=== PATIENT | male | born 1950 | race Caucasian/White ===

== ENCOUNTER → 2018-07-03 14:34 | Outpatient (CLI) | payer MEDICARE, OTHER, SELFPAY ==
--- NOTE | 2018-07-03 14:39 | RAD_ITS ---
STUDY: X-RAY - PELVIS REASON FOR EXAM: Male, 68 years old. NO KNOWN INJURY. PAIN IN HIPS. HX OF INFLAMMATORY POLYARTHROPATHY TECHNIQUE: One view of the pelvis was obtained. COMPARISON: None. FINDINGS: There is a non-specific bowel gas pattern. Normal visualized soft tissue structures. There is narrowing with cortical sclerosis and osteophyte formation of the sacroiliac joint consistent with degenerative osteoarthritic changes. Normal visualized bilateral superior and inferior pubic rami. Normal pubic symphysis. Normal ischial tuberosities. Normal visualized right femoral head. Normal right acetabulum. Normal right hip joint. There are osteoarthritic changes of the left femoral head with marginal osteophyte formation. There is moderate to severe articular joint space narrowing of the left hip. RAD/Pelvis 1 or 2 Views IMPRESSION: Left hip osteoarthritis. Electronically Signed: Yuridia Dey MD at 12:37 EDT , Service support ,
[2018-07-03 15:41] LABS: Absolute Lymphocyte Count 1.86 X10^3/ul (0.83-4.51); Absolute Neutrophil Count 5.8 X10^3/uL (2.0-7.7); Basophil# 0.02 X10^3/uL; Basophil% 0.2 % (0-1); Eosinophil# 0.09 X10^3/uL; Eosinophils% 1.1 % (0-5); Hemoglobin 16.5 g/dl (13.0-16.5); Lymphocyte # 1.86 X10^3/ul (4.0); Lymphocyte % 22.1 % (19-41); Mean Corp Hgb Conc 34.4 g/gl (32-36); Mean Platelet Vol. 10.1 fl (6.2-12.0); Monocyte% 7.1 % (0-10); Neutrophil # 5.82 X10^3/uL (2.7-7.7); Neutrophil % 69.3 % (47-70); Platelet Count 209 K/mm3 (150-450); RBC Distribution Width CV 12.3 % (11.6-14.6); RBC Distribution Width SD 42.9 fl (35.1-43.9); White Blood Count 8.4 K/mm3 (4.4-11.0)
[2018-07-03 15:44] LABS: POSITIVE COUNT NO; POSITIVE DIFFERENTIAL NO; POSITIVE MORPHOLOGY NO
[2018-07-03 15:48] LABS: Color, Urine Yellow (Yellow); Glucose, Dipstick Normal (Normal); Ketone-Dipstick Negative (Negative); Leukocyte Esterase-Dipstick 25 /ul (Negative); Nitrite-Dipstick Negative (Negative); Occult Blood-Urine 10 /ul (Negative); Protein-Dipstick Negative (Negative); Specific Gravity, Urine 1.015 (1.002-1.030); Urine Bilirubin Dipstick Negative (Negative); Urine Clarity Clear (Clear); Urine Urobilinogen 4 mg/dl (Normal)
[2018-07-03 16:15] LABS: AST(SGOT) 13 U/L (15-37); Alanine Aminotransfer ALT/SGPT 21 U/L (16-61); Alkaline Phosphatase 70 U/L (45-117); Anion Gap 5 (5-15); BUN 14 mg/dL (7-18); BUN/Creat Ratio 16.6 RATIO (10-20); Calcium,Total 8.9 mg/dL (8.5-10.1); Chloride 106 mmol/L (98-107); Creatinine, Serum 0.84 mg/dL (0.70-1.30); EST Glomerular Filtration Rate 96 mL/min (>60); Est Glom Filt Rate - Afr Amer 116 mL/min (>60); Glucose 72 mg/dL (74-106); Potassium 3.5 mmol/L (3.5-5.1); Sodium Level 140 mmol/L (136-145)
[2018-07-03 16:18] LABS: Protein:Creat Ratio 102 mg/g CRE (0-200)
[2018-07-05 14:54] LABS: Anti-Centromere B Ab <0.2 AI (0.0-0.9); Anti-Jo <0.2 AI (0.0-0.9); Anti-Scleroderma-70 AB <0.2 AI (0.0-0.9)
[2018-07-05 15:47] LABS: ANTINUCLEAR ANTIBODIES DIRECT Positive (Negative); Anti-dsDNA Ab 17 IU/mL (0-9)
[2018-07-10 14:08] LABS: Complement C3 140 mg/dL (82-167)
[2018-07-10 15:23] LABS: CCP IgG Antibodies 5 units (0-19); HEPATITIS B SURFACE AG Negative (Negative); HLA B27 Negative (.); Hep B Surface Antibodies Non Reactive (.); Hep C Antibodies <0.1 s/co ratio (0.0-0.9)
== END ==
PROVIDERS: Family Provider Nurse Practitioner; PCP Nurse Practitioner; Visit Provider Internal Medicine Rheumatology
DX: M06.4 Inflammatory polyarthropathy (principal); R76.8 Other specified abnormal immunological findings in serum; I10 Essential (primary) hypertension; G25.81 Restless legs syndrome; K21.9 Gastro-esophageal reflux disease without esophagitis; F41.9 Anxiety disorder, unspecified
CPT/HCPCS: 36415; 72170; 80053; 81002; 81374; 82570; 84156; 85025; 86038; 86160; 86200; 86225; 86235; 86706; 86803; 87340

== ENCOUNTER → 2018-07-05 12:34 | Outpatient (CLI) | payer MEDICARE, OTHER, SELFPAY ==
--- NOTE | 2018-07-05 12:36 | CT_ITS ---
STUDY: CT CHEST WITHOUT CONTRAST- LOW DOSE SCREENING PROTOCOL REASON FOR EXAM: Male, 68 years old. Current smoker. 40 pack per year history. No current symptoms of lung cancer or pulmonary infection. Shared decision-making with referring PCP documented in patient's record. RADIATION DOSAGE (If Supplied By Facility): CTDIvol = ( 3.02 ) mGy, DLP = ( 112.87 ) mGycm TECHNIQUE: Low dose screening CT examination performed from the base of the neck to the upper abdomen. Sagittal and coronal reformatted images performed. Sagittal and coronal MIP images provided. The measurements provided are average, rounded measurements per ACR guidelines. Individualized dose optimization techniques were used for this CT. COMPARISON: None. FINDINGS: Mild paraseptal emphysematous changes of the bilateral lung apices. There are fibrotic bands in the right middle lobe and bilateral lower lobes. No noncalcified pulmonary nodules are localized groundglass opacity. No endobronchial lesions are seen. There is no demonstrated pleural abnormality. Normal heart and pericardium. There are calcifications of the coronary arteries. Normal mediastinum. Normal hilar regions. Normal unenhanced pulmonary arteries. There is atherosclerotic tortuosity of the aortic arch and descending thoracic aorta. Normal osseous structures. There is no demonstrated abnormality of the visualized upper abdomen. CT/Low Dose CT Lung Screening IMPRESSION: 1. No significant indeterminate incidental findings requiring additional imaging. 2. Incidental findings include mild paraseptal emphysema of the lung apices, atherosclerosis including coronary arteries, mild parenchymal fibrotic bands. ASSESSMENT CATEGORY: LungRADS 1 - Negative. Continue annual screening with LDCT in 12 months, per established ACR guidelines. Electronically Signed: Omar Montes De Oca MD at 18:16 EDT , Service support ,
== END ==
PROVIDERS: Family Provider Nurse Practitioner; PCP Nurse Practitioner; Visit Provider Internal Medicine Pulmonary Disease
DX: Z87.891 Personal history of nicotine dependence (principal)
CPT/HCPCS: G0297

== ENCOUNTER → 2018-08-22 12:11 | Outpatient (CLI) | payer MEDICARE, OTHER, SELFPAY ==
--- NOTE | 2018-08-22 12:19 | CT_ITS ---
STUDY: CT ABDOMEN AND PELVIS WITH AND WITHOUT CONTRAST REASON FOR EXAM: Male, 68 years old. Microhematuria. RADIATION DOSAGE (If Supplied By Facility): CTDIvol = ( 19.86 ) mGy, DLP = ( 1632.30 ) mGycm TECHNIQUE: Transaxial images were obtained from the dome of the diaphragm to the symphysis pubis without oral contrast. 100 ml of Isovue 300 contrast was administered. Sagittal and coronal images were reconstructed. Individualized dose optimization techniques were used for this CT. COMPARISON: Report of bladder ultrasound May 23, 2012. FINDINGS: The visualized lung bases are unremarkable. The visualized portions of the heart are within normal limits. Small hiatal hernia. Normal liver. Normal gallbladder and extrahepatic biliary system. Normal spleen. Normal pancreas. Normal bilateral adrenal glands. 2.1 cm simple inferior pole right renal cyst. Subcentimeter right renal cortical cyst. 1 mm nonobstructing inferior pole left renal calculus. Fundus and body of the stomach are collapsed limiting evaluation of wall thickening. Fluid-filled nondilated loops of small bowel left midabdomen. Mild colonic diverticulosis. Wall thickening involving a 9 cm segment of mid sigmoid colon versus lack of distention axial image 84 series 3. The appendix is visualized and appears normal. There is mild atherosclerotic calcification of the abdominal aorta, without a demonstrated aneurysm. Normal inferior vena cava. Normal retroperitoneum. No intra-abdominal free air. Normal urinary bladder. Prostate gland not enlarged. Normal abdominal wall. All degenerative changes of the lower lumbar spine. CT/CT Abd/Pelvis W/WO Contrast IMPRESSION: No hydronephrosis or ureteral stones. Small nonobstructive left renal calculus. Right renal cysts. Mild colonic diverticulosis. Wall thickening involving the mid sigmoid colon which may represent diverticular disease. Focal colitis secondary to infection or inflammatory bowel disease, or lack of distention are possibilities. Small hiatal hernia. Electronically Signed: Syed Kraft MD at 0:31 EDT , Service support ,
[2018-08-22 12:36] LABS: CREATININE FINGERSTICK 0.8 mg/dL (0.70-1.30)
== END ==
PROVIDERS: Family Provider Nurse Practitioner; PCP Nurse Practitioner; Referring Provider Nurse Practitioner Adult Health; Visit Provider Nurse Practitioner Adult Health
DX: R31.29 Other microscopic hematuria (principal)
CPT/HCPCS: 74178; Q9967

== ENCOUNTER → 2018-10-24 13:28 | Outpatient (CLI) | payer MEDICARE, OTHER, SELFPAY ==
[2018-10-24 14:10] LABS: Absolute Lymphocyte Count 0.73 X10^3/ul (0.83-4.51); Absolute Neutrophil Count 6.7 X10^3/uL (2.0-7.7); Basophil# 0.02 X10^3/uL; Basophil% 0.3 % (0-1); Eosinophil# 0.03 X10^3/uL; Eosinophils% 0.4 % (0-5); Hemoglobin 17.1 g/dl (13.0-16.5); Lymphocyte # 0.73 X10^3/ul (4.0); Lymphocyte % 9.5 % (19-41); Mean Corp Hgb Conc 34.9 g/gl (32-36); Mean Corpuscular Hgb 32.4 pg (27.0-32.0); Mean Platelet Vol. 10.3 fl (6.2-12.0); Monocyte# 0.16 X10^3/uL; Monocyte% 2.1 % (0-10); Neutrophil % 87.3 % (47-70); Platelet Count 213 K/mm3 (150-450); RBC Distribution Width CV 12.8 % (11.6-14.6); Red Blood Count 5.27 M/mm3 (4.6-6.2); White Blood Count 7.7 K/mm3 (4.4-11.0)
[2018-10-24 14:11] LABS: POSITIVE COUNT NO; POSITIVE DIFFERENTIAL NO; POSITIVE MORPHOLOGY NO
[2018-10-24 14:34] LABS: AST(SGOT) 16 U/L (15-37); Alanine Aminotransfer ALT/SGPT 25 U/L (16-61); Albumin, Serum 3.8 g/dL (3.2-5.0); Alkaline Phosphatase 74 U/L (45-117); Anion Gap 8 (5-15); BUN 13 mg/dL (7-18); Chloride 106 mmol/L (98-107); Creatinine, Serum 0.86 mg/dL (0.70-1.30); EST Glomerular Filtration Rate 93 mL/min (>60); Est Glom Filt Rate - Afr Amer 113 mL/min (>60); Globulin 3.9 g/dL (2.2-4.2); Glucose 145 mg/dL (74-106); Potassium 4.1 mmol/L (3.5-5.1); Protein, Total 7.7 g/dL (6.4-8.2); Sodium Level 140 mmol/L (136-145)
--- OUTSIDE RECORDS SUMMARY | 2018-12-20 02:26 | XMS RPT_ITS | Continuity of Care Document ---
:1950 Author Organization [facility] Address [address] [place] [address] Phone Care Team Providers Name Role Phone Jailene Mayfield CNP Unavailable Dr. Ger Gaston Unavailable Jennifer Osuna Unavailable Wesley Sousa Unavailable [facility] Unavailable Blaire ALBARADO, Domenic Mancilla Unavailable Jessica Pop Unavailable Patricio Burton Unavailable Sondra Jimenez Unavailable Unavailable July Mazariegos Unavailable Sasha NEWBERRY MD, Maggie Bernal Unavailable Jhony Yusuf Unavailable Hayden Valero Unavailable Zoila Elder Unavailable Unavailable Sue Rooney Unavailable Unavailable Slarb MICROGRINDER OPERATOR, Safia Unavailable Unavailable Long MICROGRINDER OPERATOR, Mehnaz L Unavailable Unavailable SHENA LemusN Sue Unavailable Unavailable Lauryn Hanson Unavailable Unavailable Unavailable Unavailable Problems Name Dates Details Abnormal Holter exam (R94.31, 794.31) Comments: supreventricular ectopy currently on exforge Status: Active Abnormal lung sounds (R09.89, 786.7) Status: Active Abnormal lung sounds (R09.89, 786.7) Status: Active Abnormal thyroid stimulating hormone level (R79.89, 790.6) Comments: ultrasound first and repeat labs Status: Active Acute non-recurrent maxillary sinusitis (J01.00, 461.0) Status: Active Alcohol abuse, 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 stil work with him on and off. 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) Comments: and pos Anti DNA Status: Active Anxiety (F41.9, 300.00) Comments: see discussion on 05-17-18 ov Status: Active B12 deficiency (E53.8, 266.2) Comments: using otc vit b12 also add thiamine Status: Active BMI 26.0-26.9,adult (Z68.26, V85.22) Status: Active BMI 27.0-27.9,adult (Z68.27, V85.23) Status: Active BMI 28.0-28.9,adult (Z68.28, V85.24) Comments: talk about diet clean eating, get calories outof drinks, cut proportions Status: Active Bradycardia (R00.1, 427.89) Status: Active Central obesity (E65, 278.1) Status: Active Cerumen impaction (H61.20, 380.4) Comments: rt Status: Active Current smoker (F17.200, 305.1) Comments: can try nicoderm pacth if not work then chantix talk chantix and how take. 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 needs all immunizations updated, rec. local pharm for tetanus and Ojiilqd59,whisper test=WNL mini mental=30/30 Status: Active Erectile disorder, generalized, mild (F52.21, 302.72) Comments: talk about and ? htn tel side effects of meds. Status: Active Erectile dysfunction (N52.9, 607.84) Status: Active Fatigue (R53.83, 780.79) Comments: daytime fatigue Status: Active Fatigue, unspecified type (R53.83, 780.79) Comments: family h/o dm will ck -- other metabolic etiologies too -- getting sleep eval -- has depresion and was placed onlexapro and has been on those meds in past w/o issue adn it was only one week ago-- admits to stressors Status: Active Gait abnormality (R26.9, 781.2) Comments: because of knee Status: Active GERD (gastroesophageal reflux disease) (K21.9, 530.81) Comments: had EGDyears ago . hospital stay stress negative. having breakthrough reflux on PPI nexium egd 8-15, will go to OTC 20mg nexium and prevacid 3, wean nexium and take acid airfreight operations agent as needed. Status: Active Hearing loss of both ears due to cerumen impaction (H61.23, 389.8) Status: Active Hematuria (R31.9, 599.70) Comments: newly diagnosed lupus, Ua with blood newly diagnosed Lupus saw urologist had cystoscopy normal Status: Active Hip pain, left (M25.552, 719.45) Comments: left hip injection from [place] seeing DR. Walker Sousa but he is leaving, so pt needs another ortho Status: Active Hyperinflation of lungs (R09.89, 786.9) Status: Active Hypertension (I10, 401.9) Comments: On exforge 5-160mg controlled, changing to 5 320mg, now with good BP control, will change to losartan and amlodipine because of recall and ? pt symptoms of fatiguehas neg sleep study, Low dose CT with emphysema Status: Active Impaired fasting glucose (R73.01, 790.21) Status: Active Irritable bowel syndrome (K58.9, 564.1) Comments: robbie Gaston had colonoscopy Nov 2016 Status: Active Left knee pain, unspecified chronicity (M25.562, 719.46) Status: Active Low back pain with radiation (M54.40, 724.3) Comments: shoveling snow, with muscle relaxer Status: Active Low serum testosterone (E29.1, 257.2) Comments: think about replacement and or work out Status: Active Lupus (systemic lupus erythematosus) (M32.9, 710.0) Comments: pt on nexium for years ? contributory, on equate acid airfreight operations agent seeing Dr La Status: Active Muscle spasm of back (M62.830, 724.8) Status: Active Need for prophylactic vaccination and inoculation against influenza (Renamed from Need for immunization against influenza) (Z23, V04.81) Status: Active Need for prophylactic vaccination and inoculation against influenza (Renamed from Need for immunization against influenza) (Z23, V04.81) Status: Active Need for prophylactic vaccination and inoculation against influenza (Renamed from Need for immunization against influenza) (Z23, V04.81) Status: Active Nocturnal leg cramps (G47.62, 327.52) Comments: using micah mag with help Status: Active Nocturnal leg cramps (G47.62, 327.52) Status: Active Pneumococcal vaccination given (Z23, V06.6) Status: Active Pneumonia (J18.9, 486) Comments: resolved on levaquin Status: Active Pulmonary infiltrates on CXR (R91.8, 793.19) Comments: and atelectasis Status: Active PVC (premature ventricular contraction) (I49.3, 427.69) Comments: Has seen cardio, Dr Rudd in outpt with Normal LV, card cath neg in 2013, No new workup or recommendation continue exforge Status: Active RLS (restless legs syndrome) (G25.81, 333.94) Status: Active Sebaceous cyst (L72.3, 706.2) Comments: Rt groin, try antibiotic, if not improving, will gallito Status: Active Smoker (F17.200, 305.1) Status: Active Testosterone deficiency (E34.9, 257.2) Comments: two low T's done 09-21-16 and 0-8-27vzjzwz labs good, recheck psa and then cbc, liver, cmp in March 2017 Status: Active Unspecified Diagnosis Status: Active Unspecified Diagnosis Status: Active Upper respiratory infection (J06.9, 465.9) Status: Active Vitamin D deficiency, unspecified (E55.9, 268.9) Comments: stable on Vit D once weekly Status: Active Weight loss (R63.4, 783.21) Status: Active Wheeze (R06.2, 786.07) Status: Active Medications Name Dates Details Amlodipine-Olmesartan 5-40 MG Oral Tablet 1 (one) Tablet daily for 90 days Quantity: 90 {Tablet} Refills: 3 Ordered:09-Oct-2018 Bhumikamani KAYLIE Jailene Beltranshamika LOTT Jailene Vega Start : 09-Oct-2018 Active Micah Mag Zinc +D3 Oral Tablet 1 (one) Tablet Tablet qhs for 0 days Quantity: 30 {Tablet} Refills: 0 Ordered:20-Sep-2017 Bhumikakasishamika LOTT, Jailene Beltranshamika LOTT Jailene Vega Start : 20-Sep-2017 Active Ergocalciferol 26625 UNIT Oral Capsule 1 (one) Capsule Capsule weekly for 0 days Quantity: 8 {Capsule} Refills: 0 Ordered:16-May-2017 Tran KAYLIE, Jailene Stevens KAYLIE Jailene Vega Start : 16-May-2017 Active Comments:06-14-16 no refills patient needs an appointment LORazepam 1 MG Oral Tablet 1 Tablet qd prn for 30 days Quantity: 30 {Tablet} Refills: 0 Ordered:09-Oct-2018 Tran KAYLIE, Jailene Beltranshamika LOTT Jailene Vega Start : 09-Oct-2018 Active Comments:thirtyOarrs runDx. F41.9 NexIUM 24HR 20 MG Oral Capsule Delayed Release 1 (one) Capsule DR Capsule DR daily for 0 days Quantity: 30 {Capsule} Refills: 0 Ordered:29-Sep-2016 Slarb Safia LANGSTON Start : 21-Sep-2016 Active Sildenafil Citrate 20 MG Oral Tablet 1 (one) Tablet Tablet Take 1 .5-4hr before sexual activity for 0 days Quantity: 10 {Tablet} Refills: 0 Ordered:20-Sep-2017 Mehnaz Desai LPN Start : 20-Sep-2017 Active Comments:Generic Viagra Wellbutrin SR 150 MG Oral Tablet Extended Release 12 Hour 1 (one) Milligram Milligram 1 daily x 3 days then 1 bid for 0 days Quantity: 60 {Milligram} Refills: 3 Ordered:26-Jul-2018 Lauryn Hanson Start : 26-Jul-2018 Active Comments:Separate doses by at least 8hr, and last dose no later than 6pm, stop smoking after 5-7 days x 7-12 weeks ANUSOL-HC, 25MG (Rectal Suppository) 1 (one) Suppository daily prn for 0 days Quantity: 10 {Suppository} Refills: 1 Ordered:08-Jun-2010 SHALINI Velazquez Start : 14-Apr-2009 Inactive Augmentin 875-125 MG Oral Tablet 1 (one) Tablet BID for 14 days Quantity: 28 {Tablet} Refills: 0 Ordered:19-Jul-2016 Tran LOTT Jailene Rodney LOTT, Aurelia Start : 19-Jul-2016 End : 02-Aug-2016 Inactive Augmentin 875-125 MG Oral Tablet 1 (one) Tablet bid for 0 days Quantity: 20 {Tablet} Refills: 0 Ordered:29-Nov-2017 Mehnaz Desai LPN Start : 08-Nov-2017 End : 29-Nov-2017 Inactive Cefadroxil 500 MG Oral Capsule 1 (one) Capsule bid for 7 days Quantity: 14 {Capsule} Refills: 0 Ordered:29-Nov-2017 Tran LOTT Jailene Rodney LOTT, Aurelia Start : 29-Nov-2017 End : 06-Dec-2017 Inactive CLOTRIMAZOLE-BETAMETHASONE, 1-0.05% (External Cream) uad Cream bid to affected area(s) for 0 days Quantity: 1 {Cream} Refills: 3 Ordered:12-Apr-2013 SHALINI Velazquez Start : 02-Nov-2012 End : 12-Apr-2013 Inactive CYANOCOBALAMIN, 1000MCG/ML (Injection Solution) 1 cc Solution bimonthly for 0 days Quantity: 1 {Solution} Refills: 6 Ordered:26-Mar-2014 Mehnaz Desai LPN Start : 30-Nov-2010 End : 26-Mar-2014 Inactive Comments:give 1cc syringe and 1 in IM needles with this script CYANOCOBALAMIN, 2500MCG (Sublingual Tablet Sublingual) 1 Tab Sublingual daily for 0 days Quantity: 90 {Tab_Sublingual} Refills: 3 Ordered:15-Apr-2011 SHALINI Velazquez Start : 23-Mar-2010 End : 15-Apr-2011 Inactive Cyclobenzaprine HCl 5 MG Oral Tablet 1 (one) Tablet Tablet TID PRN for 0 days Quantity: 21 {Tablet} Refills: 0 Ordered:08-May-2018 Safia Iraheta LPN Start : 19-Dec-2017 End : 08-May-2018 Inactive DEXILANT, 60MG (Oral Capsule Delayed Release) [address] qd for 0 days Quantity: 90 {Capsule_DR} Refills: 3 Ordered:26-Mar-2014 Long MICROGRINDER OPERATOR, Mehnaz L Start : 06-Nov-2012 End : 26-Mar-2014 Inactive DEXILANT, 60MG (Oral Capsule Delayed Release) [address] qd for 0 days Quantity: 90 {Capsule_DR} Refills: 3 Ordered:26-Mar-2014 Long MICROGRINDER OPERATOR, Mehnaz L Start : 06-Nov-2012 End : 26-Mar-2014 Inactive DICYCLOMINE HCL, 20MG (Oral Tablet) uad Tablet BID/PRN for 0 days Quantity: 30 {Tablet} Refills: 3 Ordered:26-Mar-2014 Long MICROGRINDER OPERATOR, Mehnaz L Start : 03-Mar-2011 End : 26-Mar-2014 Inactive DIFLUCAN, 150MG (Oral Tablet) 1 Tablet daily for 0 days Quantity: 3 {Tablet} Refills: 0 Ordered:19-Apr-2011 SHALINI Velazquez Start : 15-Apr-2011 End : 19-Apr-2011 Inactive DOXYCYCLINE HYCLATE, 100MG (Oral Tablet) 1 (one) Tablet Tablet bid for 0 days Quantity: 20 {Tablet} Refills: 0 Ordered:16-Dec-2014 SHALINI Velazquez Start : 05-Aug-2014 End : 16-Dec-2014 Inactive Comments:watch sunsensitivity DRISDOL, 14022ZVAN (Oral Capsule) 1 Capsule three times weekly for 0 days Quantity: 12 {Capsule} Refills: 3 Ordered:26-Mar-2014 Long MICROGRINDER OPERATOR, Mehnaz L Start : 15-Feb-2012 End : 26-Mar-2014 Inactive Exforge 5-160 MG Oral Tablet 1 (one) Tablet QD for 0 days Quantity: 90 {Tablet} Refills: 1 Ordered:20-Feb-2018 Tran LOTTJailene CNP, Mary E Start : 29-Nov-2017 End : 20-Feb-2018 Inactive Exforge 5-320 MG Oral Tablet 1 (one) Tablet daily for 0 days Quantity: 30 {Tablet} Refills: 3 Ordered:26-Jul-2018 Jailene Mayfield CNP, CNP, Mary E Start : 24-Jul-2018 End : 26-Jul-2018 Inactive Exforge 5-320 MG Oral Tablet 1 (one) Tablet daily for 0 days Quantity: 90 {Tablet} Refills: 3 Ordered:26-Jul-2018 Jailene Mayfield CNP, CNP, Mary E Start : 24-Jul-2018 End : 26-Jul-2018 Inactive FLEXERIL, 10MG (Oral Tablet) 1 (one) Tablet tid for 0 days Quantity: 30 {Tablet} Refills: 0 Ordered:23-Mar-2010 Celestina Sullivan Start : 21-Jan-2010 Inactive HYDROCHLOROTHIAZIDE, 12.5MG (Oral Tablet) 1 Tablet daily for 0 days Quantity: 30 {Tablet} Refills: 7 Ordered:30-Nov-2010 SHALINI Velazquez Start : 23-Mar-2010 End : 30-Nov-2010 Inactive Keflex 500 MG Oral Capsule 1 (one) Capsule q12hr for 7 days Quantity: 14 {Capsule} Refills: 0 Ordered:28-Jan-2017 Jailene Mayfield CNP, CNP, Mary E Start : 28-Jan-2017 End : 04-Feb-2017 Inactive KLOR-CON 10, 10MEQ (Oral Tablet Extended Release) 1 Tablet ER qd for 90 days Quantity: 90 {Tablet_ER} Refills: 0 Ordered:23-Mar-2012 Carolann White RN Start : 09-Dec-2011 End : 08-Mar-2012 Inactive KLOR-CON M20, 20MEQ (Oral Tablet Extended Release) 1 Tablet ER qd for 0 days Quantity: 30 {Tablet_ER} Refills: 3 Ordered:26-Mar-2014 Mehnaz Desai LPN Start : 12-Apr-2013 End : 26-Mar-2014 Inactive Levaquin 500 MG Oral Tablet 1 (one) Tablet daily for 7 days Quantity: 7 {Tablet} Refills: 0 Ordered:22-Sep-2016 Jailene Mayfield CNP, CNP, Mary E Start : 22-Sep-2016 End : 29-Sep-2016 Inactive MAGNESIUM OXIDE, 400MG (Oral Tablet) 1 Tablet bid for 0 days Quantity: 60 {Tablet} Refills: 3 Ordered:26-Mar-2014 Mehnaz Desai LPN Start : 12-Apr-2013 End : 26-Mar-2014 Inactive MELOXICAM, 15MG (Oral Tablet) 1 (one) Tablet daily for 0 days Quantity: 30 {Tablet} Refills: 0 Ordered:03-Jul-2014 Sue Lemus LPN Start : 20-May-2014 End : 03-Jul-2014 Inactive Comments:with food MOBIC, 15MG (Oral Tablet) 1 (one) Tablet Tablet daily for 0 days Quantity: 30 {Tablet} Refills: 0 Ordered:05-Aug-2014 SHALINI Velazquez Start : 08-Jul-2014 End : 05-Aug-2014 Inactive MOBIC, 7.5MG (Oral Tablet) 1 Tablet daily for 0 days Quantity: 30 {Tablet} Refills: 0 Ordered:25-Jun-2010 SHALINI Velazquez Start : 23-Apr-2010 Inactive MYCELEX, 10MG (Mouth/Throat Mil) 1 Mil 5 x daily for 10 days Quantity: 50 {Mil} Refills: 0 Ordered:09-Feb-2011 Bhumikakasishamika CONSTRUCTION INSPECTOR, Jailene Rodney CONSTRUCTION INSPECTOR, Aurelia Start : 09-Feb-2011 End : 19-Feb-2011 Inactive NORVASC, 10MG (Oral Tablet) 1 Tablet QD for 0 days Refills: 0 Ordered:13-Aug-2008 SHALINI Velazquez Start : 09-Dec-2006 End : 13-Aug-2008 Inactive PANTOPRAZOLE SODIUM, 40MG (Oral Tablet Delayed Release) 1 (one) Tablet DR Tablet DR daily for 0 days Quantity: 30 {Tablet} Refills: 5 Ordered:01-Dec-2015 SHALINI Velazquez Start : 29-Apr-2015 End : 01-Dec-2015 Inactive ProAir HFA 108 (90 Base) MCG/ACT Inhalation Aerosol Solution 1-2 Puff Puff Q 4-6 hours PRN for 0 days Quantity: 1 {Inhaler} Refills: 0 Ordered:09-Oct-2018 Mehnaz Desai LPN Start : 19-Dec-2017 End : 09-Oct-2018 Inactive SEROQUEL XR, 150MG (Oral Tablet Extended Release 24 Hour) 1 Tablet ER 24HR every night for 0 days Quantity: 90 {Tablet_ER_24HR} Refills: 3 Ordered:12-Apr-2013 Jewell Hadley MD Start : 12-Apr-2013 End : 12-Apr-2013 Inactive SEROQUEL XR, 150MG (Oral Tablet Extended Release 24 Hour) 1 Tablet ER 24HR every night for 0 days Quantity: 30 {Tablet_ER_24HR} Refills: 3 Ordered:12-Apr-2013 Jewell Hadley MD Start : 12-Apr-2013 End : 12-Apr-2013 Inactive THIAMINE HCL, 100MG (Oral Tablet) 1 Tablet bid for 0 days Quantity: 60 {Tablet} Refills: 3 Ordered:26-Mar-2014 Mehnaz Desai LPN L Start : 15-Apr-2011 End : 26-Mar-2014 Inactive TIZANIDINE HCL, 4MG (Oral Capsule) 1 (one) Capsule Capsule q8hrs prn for 0 days Quantity: 30 {Capsule} Refills: 0 Ordered:05-Aug-2014 SHALINI Velazquez Start : 17-May-2014 End : 05-Aug-2014 Inactive VALIUM, 5MG (Oral Tablet) 1 (one) Tablet Twice daily for 0 days Quantity: 10 {Tablet} Refills: 0 Ordered:07-Jul-2009 SHALINI Velazquez Start : 07-Jul-2009 End : 07-Oct-2009 Inactive VICOPROFEN, 7.5-200MG (Oral Tablet) 1 (one) Tablet Q 4hr/PRN for 0 days Quantity: 60 {Tablet} Refills: 0 Ordered:07-Jul-2009 SHALINI Velazquez Start : 07-Jul-2009 End : 07-Oct-2009 Inactive VIIBRYD, 40MG (Oral Tablet) 1 Tablet daily for 0 days Quantity: 30 {Tablet} Refills: 5 Ordered:26-Mar-2014 Lloyd LANGSTON Mehnaz L Start : 07-Jan-2012 End : 26-Mar-2014 Inactive VOLTAREN, 1% (External Gel) Gel apply bid for 30 days Refills: 0 Ordered:08-Jun-2010 Jewell Hadley MD Start : 23-Apr-2010 End : 23-May-2010 Inactive AndroGel Pump 20.25 MG/ACT (1.62%) Transdermal Gel 1 (one) Gel Gel Appley 20.25-81 mg qam for 0 days Quantity: 1 {Box} Refills: 5 Ordered:21-Mar-2017 Safia Iraheta LPN Start : 21-Jan-2017 End : 21-Mar-2017 Discontinued ATENOLOL, 25MG (Oral Tablet) 1 (one) Tablet BID for 0 days Refills: 0 Ordered:02-May-2008 Jewell Hadley MD Start : 01-Jan-2008 End : 02-May-2008 Discontinued CELEXA, 40MG (Oral Tablet) 1 (one) Tablet qd for 0 days Quantity: 90 {Tablet(s)} Refills: 3 Ordered:07-Jan-2012 Jewell Hadley MD Start : 07-Jan-2012 End : 07-Jan-2012 Discontinued CHANTIX STARTING MONTH KENYA, 0.5 MG X 11 &1 MG X 42 (Oral Tablet) 1 (one) Tablet uad for 0 days Quantity: 1 {Package} Refills: 0 Ordered:23-Apr-2016 Safia Iraheta LPN Start : 06-Feb-2016 End : 23-Apr-2016 Discontinued CHANTIX, 1MG (Oral Tablet) 1 (one) Tablet bid for 0 days Quantity: 60 {Tablet} Refills: 1 Ordered:23-Apr-2016 Safia Iraheta LPN Start : 06-Feb-2016 End : 23-Apr-2016 Discontinued Debrox 6.5 % Otic Solution 1 Solution uad for 0 days Quantity: 1 {Solution} Refills: 0 Ordered:21-Sep-2016 Safia Iraheta LPN Start : 19-Jul-2016 End : 21-Sep-2016 Discontinued (Oral Tablet) Tablet prn for 0 days Refills: 0 Ordered:22-May-2007 SHALINI Velazquez Start : 22-May-2007 End : 02-Nov-2007 Discontinued Comments:alek Escitalopram Oxalate 10 MG Oral Tablet 1 (one) Tablet daily for 0 days Quantity: 90 {Tablet} Refills: 0 Ordered:26-Jul-2018 Zoila Elder Start : 08-May-2018 End : 26-Jul-2018 Discontinued Escitalopram Oxalate 10 MG Oral Tablet 1 (one) Tablet daily for 0 days Quantity: 90 {Tablet} Refills: 0 Ordered:26-Jul-2018 Zoila Elder Start : 08-May-2018 End : 26-Jul-2018 Discontinued FLOMAX, 0.4MG (Oral Capsule) 1 (one) Capsule Capsule at night for 0 days Quantity: 30 {Capsule} Refills: 0 Ordered:05-Aug-2014 Jewell Hadley MD Start : 05-Aug-2014 End : 27-Mar-2015 Discontinued HYOSCYAMINE COMPOUND (PO Elixir) 0.375 BID, PRN for 0 days Refills: 0 Ordered:21-Jul-2007 Martha Garcia End : 09-Dec-2006 Discontinued Lexapro 20 MG Oral Tablet 1 (one) Tablet qd for 0 days Quantity: 30 {Tablet} Refills: 0 Ordered:20-Sep-2017 Safia Iraheta LPN Start : 16-May-2017 End : 20-Sep-2017 Discontinued LIPITOR, 10MG (Oral Tablet) 1 (one) Tablet Tablet qd for 30 days Refills: 0 Ordered:23-Jul-2014 Jewell Hadley MD Start : 23-Jul-2014 End : 23-Jul-2014 Discontinued NexIUM 40 MG Oral Capsule Delayed Release [address] bid for 0 days Quantity: 180 {Capsule} Refills: 3 Ordered:12-Jan-2017 Safia Iraheta LPN Start : 04-Jun-2015 End : 12-Jan-2017 Discontinued NexIUM 40 MG Oral Capsule Delayed Release [address] bid for 0 days Quantity: 20 {Capsule} Refills: 0 Ordered:12-Jan-2017 Safia Iraheta LPN Start : 04-Jun-2015 End : 12-Jan-2017 Discontinued Nicoderm CQ 21 MG/24HR Transdermal Patch 24 Hour 1 (one) Patch 24HR Patch 24HR qd x 6wks, then 14mg patch qd x2 weeks, then 7mg patch qd x2wk for 0 days Quantity: 42 {Patch} Refills: 0 Ordered:12-Jan-2017 Safia Iraheta LPN Start : 21-Sep-2016 End : 12-Jan-2017 Discontinued Comments:Start on day you quit smoking Proventil HFA 108 (90 Base) MCG/ACT Inhalation Aerosol Solution 1 (one) Aerosol Soln q 4-6 hr prn wheeze /cough for 0 days Quantity: 1 {Inhaler} Refills: 0 Ordered:12-Jan-2017 Safia Iraheta LPN Start : 02-Dec-2016 End : 12-Jan-2017 Discontinued SINEMET CR, 25-100MG (Oral Tablet Extended Release) Tablet ER QHS / HS for 0 days Quantity: 30 {Tablet_ER} Refills: 3 Ordered:09-Dec-2006 Farzad SHALINI Start : 09-Dec-2006 End : 02-Nov-2007 Discontinued SKELAXIN, 800MG (Oral Tablet) 1 Tablet TID/PRN for 0 days Quantity: 20 {Tablet} Refills: 0 Ordered:02-Nov-2007 JACQUIE VelazquezAINE Start : 02-Nov-2007 End : 18-Jan-2008 Discontinued Viagra 100 MG Oral Tablet 1 (one) Tablet Tablet take 1 before sex prn for 0 days Quantity: 10 {Tablet} Refills: 4 Ordered:21-Mar-2017 Slarb MICROGRINDER OPERATOR, Safia Start : 06-Feb-2016 End : 21-Mar-2017 Discontinued Vitamin B Complex Oral Tablet 1 (one) Tablet daily for 30 days Quantity: 30 {Tablet} Refills: 0 Ordered:13-Jun-2017 Slarb MICROGRINDER OPERATOR, Safia Start : 16-May-2017 End : 13-Jun-2017 Discontinued Vitamin B1 100 MG Oral Tablet 1 (one) Tablet Tablet bid for 0 days Quantity: 30 {Tablet} Refills: 0 Ordered:21-Sep-2016 Slarb MICROGRINDER OPERATOR, Safia Start : 08-Jul-2014 End : 21-Sep-2016 Discontinued Allergies and Adverse Reactions Name Dates Details No Known Allergies (Allergy) Onset: 17-May-2014 Status: Active No Known Drug Allergies (Allergy) Status: Active Past Medical History Name Dates Details Abdominal pain, acute, left upper quadrant (R10.12, 789.02) Status: Inactive as of 08-Jun-2010 Abdominal wall pain (R10.9, 789.00) Comments: check urine. had colonscopy seem very superficial in muscle. take tyelnol rest stomach muscle use ice.for 20mins day if not better 6 weeks. Status: Inactive as of 30-Nov-2015 Abnormal TSH (R79.89, 790.6) Status: Inactive as of 16-Dec-2014 Alcohol abuse, continuous drinking behavior (F10.10, 305.01) Comments: pt drinking a fifth every other day. all CAGE questions postive. went to steps and girl thought not alcoholic and so not go through problem. i told him this is completely wrong he needs problem Status: Inactive as of 05-Aug-2014 Allergic rhinitis (J30.9, 477.9) Comments: had allergy test past, handout given take antihistamine not get yet Status: Resolved as of 04-Apr-2009 BMI 26.0-26.9,adult (Z68.26, V85.22) Status: Inactive as of 09-Oct-2018 BMI 27.0-27.9,adult (Z68.27, V85.23) Status: Inactive as of 29-Nov-2017 BMI 28.0-28.9,adult (Z68.28, V85.24) Status: Inactive as of 20-Sep-2017 BMI 28.0-28.9,adult (Z68.28, V85.24) Status: Inactive as of 09-Oct-2018 BMI 29.0-29.9,adult (Z68.29, V85.25) Status: Inactive as of 20-Sep-2017 Bruising (T14.8, 924.9) Comments: look like senile ecchymosis Status: Inactive as of 30-Nov-2015 Candidiasis, mouth (B37.0, 112.0) Status: Inactive as of 12-Apr-2013 Chest pain (R07.9, 786.50) Comments: cath 8- normal. relates to anxiety better now not drinking and anxiety better Status: Inactive as of 05-Aug-2014 Chronic cough (R05, 786.2) Comments: , cxr ?emphysema. no inhalers now, use nasal saline. seen saba antihistamine help in past so will try Status: Inactive as of 30-Nov-2015 Cough (R05, 786.2) Status: Inactive as of 20-Sep-2017 Diarrhea (R19.7, 787.91) Comments: augmentin help.dicyclomine helpscope 2004, not send stool studies Status: Resolved as of 15-May-2009 Discomfort of back (M54.9, 724.5) Comments: site of sebaceous cyst Status: Inactive as of 20-Sep-2017 Diverticulosis of colon (K57.30, 562.10) Status: Inactive as of 30-Nov-2015 Dizziness (R42, 780.4) Status: Resolved as of 04-Apr-2009 Dysuria (R30.0, 788.1) Status: Inactive as of 12-Apr-2013 Elevated LFTs (R94.5, 790.6) Comments: liver tests up 3. not drink in 3 weeks so will check Status: Inactive as of 16-Dec-2014 Encounter for screening for malignant neoplasm of prostate (Renamed from Screening PSA (prostate specific antigen)) (Z12.5, V76.44) Status: Inactive as of 06-Feb-2016 ETOH abuse (F10.10, 305.00) Comments: doing well seeing Rogerio Freitas at [place]. doing well. Currently in remission. doing AA [place] meeting every tuesday. going every other week. Status: Resolved as of 17-Jun-2015 Excessive thirst (R63.1, 783.5) Status: Inactive as of 16-Dec-2014 Fatigue (R53.83, 780.79) Status: Inactive as of 30-Nov-2015 Folliculitis (L73.9, 704.8) Comments: clean the razor withalcohol Status: Inactive as of 16-Dec-2014 Hamstring strain (Renamed from Hamstring stran) Comments: talk about it. nsaids ice rest and light stretching if not better 2 weeks to PT Status: Resolved as of 04-Apr-2009 Hemorrhoids, unspecified hemorrhoid type (K64.9, 455.6) Status: Inactive as of 15-May-2009 Hypopotassemia (E87.6, 276.8) Status: Inactive as of 16-Dec-2014 Limb pain (M79.609, 729.5) Comments: think in tennis elbow and rotator cuff Status: Resolved as of 15-May-2009 Lipoma of back (D17.1, 214.8) Status: Inactive as of 20-Sep-2017 Low back pain (M54.5, 724.2) Comments: aleve 2 bid-- related to fall recently exacerbate Status: Resolved as of 15-May-2009 Memory loss (R41.3, 780.93) Comments: better off etoh Status: Resolved as of 09-Oct-2014 Muscle spasm (M62.838, 728.85) Status: Inactive as of 05-Aug-2014 Neck pain (M54.2, 723.1) Status: Inactive as of 05-Aug-2014 Neck pain (M54.2, 723.1) Status: Inactive as of 05-Aug-2014 Other and unspecified alcohol dependence, unspecified drinking behavior (F10.20, 303.90) Status: Inactive as of 26-Mar-2014 Other specified abnormal findings of blood chemistry (R79.89, 790.6) Status: Inactive as of 05-Aug-2014 Other specified viral infection, in conditions classified elsewhere and of unspecified site (B97.89, 079.89) Comments: mucine dx, afrin spray for 3 days. if not better in 1 week call Status: Resolved as of 15-May-2009 Other symptoms and signs involving general sensations and perceptions (R44.8, 799.89) Status: Inactive as of 05-Aug-2014 Otitis, left (H66.92, 382.9) Status: Inactive as of 20-Sep-2017 Pain in unspecified joint (M25.50, 719.40) Comments: rheum work up negative inpast. Status: Inactive as of 16-Dec-2014 Preop examination (Z01.818, V72.84) Comments: For left ear cyst Surgery Oct 01 Dr. Chauhan at [facility] Status: Inactive as of 20-Sep-2017 Rectal bleeding (K62.5, 569.3) Status: Inactive as of 15-May-2009 ringworm 110.9 (110.9) Comments: on lower legs looks like this with centeral clearing. will treat Status: Inactive as of 12-Apr-2013 SOB (shortness of breath) on exertion (R06.02, 786.05) Comments: relate allergies and above Status: Resolved as of 04-Apr-2009 Symptoms of dehydration (Renamed from Dehydration symptoms) (R63.8, 783.9) Comments: secondary to drinking Status: Inactive as of 05-Aug-2014 Unspecified abnormal involuntary movements (R25.9, 781.0) Comments: saw neurologist. stable now off etoh Status: Inactive as of 30-Nov-2015 Unspecified Diagnosis Status: Inactive as of 05-Aug-2014 Unspecified Diagnosis Status: Inactive as of 05-Aug-2014 Unspecified Diagnosis Status: Inactive as of 12-Apr-2013 Unspecified Diagnosis Status: Inactive as of 12-Apr-2013 Unspecified Diagnosis Status: Inactive as of 05-Aug-2014 Urinary frequency (R35.0, 788.41) Comments: checkurine frequency bbut no dysuria urgency or hesistency up thorugh night to urinate. drinking alot fliuds not off etoh. no caffiene will try flomax an d see help. tell side effects take at night Status: Inactive as of 16-Dec-2014 Visual changes (H53.9, 368.9) Comments: like lightening Status: Inactive as of 16-Dec-2014 Weakness of limb (M62.81, 729.89) Comments: worsen since last seen Status: Inactive as of 05-Aug-2014 Weight gain (R63.5, 783.1) Comments: doing better and not drinking and eating better told need to watcch weight gain. snack and carbs. will talk about 21 day cleanse. Status: Inactive as of 06-Feb-2016 Procedures Procedure Dates Details Left ankle Completed Comments: pinned d/t fracture Tonsillectomy Completed Date Value Details 22-Aug-2018 CT Abd/Pelvis W/WO Contrast Result: Comments: See Note; NOTES: [facility] Imaging Services [address] [place] [address] CT Abd/Pelvis W/WO Contrast MR#: [id number] Acct: [id number] Name: WILBERT SEGURA Rep # : [id number] : 1950 M 68 From: Syed Kraft PCP: Jailene Mayfield NP Status: REG CLI Study: CT Abd/Pelvis W/WO Contrast Date of Exam: 08/22/18 Exam# [id number] Ordering Dr: Gloria Batista ENTRY LEVEL INSTALLATION TECHNICIAN-C STUDY: CT ABDOMEN AND PELVIS WITH AND WITHOUT CONTRAST REASON FOR EXAM: Male, 68 years old. Microhematuria. RADIATION DOSAGE (If Supplied By Facility): CTDIvol = ( 19.86 ) mGy, DLP = ( 1632.30 ) mGycm TECHNIQUE: Transaxial images were obtained from the dome of the diaphragm to the symphysis pubis without oral contrast. 100 ml of Isovue 300 contrast was administered. Sagittal and coronal images were reconstructed. Individualized dose optimization techniques were used for this CT. COMPARISON: Report of bladder ultrasound May 23, 2012. FINDINGS: The visualized lung bases are unremarkable. The visualized portions of the heart are within normal limits. Small hiatal hernia. Normal liver. Normal gallbladder and extrahepatic biliary system. Normal spleen. Normal pancreas. Normal bilateral adrenal glands. 2.1 cm simple inferior pole right renal cyst. Subcentimeter right renal cortical cyst. 1 mm nonobstructing inferior pole left renal calculus. Fundus and lázaro dy of the stomach are collapsed limiting evaluation of wall thickening. Fluid- filled nondilated loops of small bowel left midabdomen. Mild colonic diverticulosis. Wall thickening involving a 9 cm segmen t of mid sigmoid colon versus lack of distention axial image 84 series 3. The appendix is visualized and appears normal. There is mild atherosclerotic calcification of the abdominal aorta, without a de monstrated aneurysm. Normal inferior vena cava. Normal retroperitoneum. No intra- abdominal free air. Normal urinary bladder. Prostate gland not enlarged. Normal abdominal wall. All degenerative change s of the lower lumbar spine. 0017 CT/CT Abd/Pelvis W/WO Contrast IMPRESSION: No hydronephrosis or ureteral stones. Small nonobstructive left renal ca lculus. Right renal cysts. Mild colonic diverticulosis. Wall thickening involving the mid sigmoid colon which may represent diverticular disease. Focal colitis secondary to infection or inflammatory b owel disease, or lack of distention are possibilities. Small hiatal hernia. Electronically Signed: Syed Kraft MD at 0:31 EDT , Service support , Fax CC: Jailene Mayfield NP; Gloria Batista NP Supervisor Incising: Signed 05-Jul-[address] Lung Screening Result: Comments: See Note; NOTES: [facility] Imaging Services [address] [place] [address] Lung Screening MR#: [id number] Acct: [id number] Name: WILBERT SEGURA Rep #: [id number] : 1950 M 68 From: Omar Montes De Oca MD PCP: Tran HENDRIX, Jailene Status: REG CLI Study: Low Dose CT Lung Screening Date of Exam: 07/05/18 Exam# [id number] Ordering Dr: Jhony Yusuf MD STUDY: CT CHEST WITHOUT CONTRAST- LOW DOSE SCREENING PROTOCOL REASON FOR EXAM: Male, 68 years old. Current smoker. 40 pack per year history. No current symptoms of lung cancer or pulmonary infection. S hared decision-making with referring PCP documented in patient's record. RADIATION DOSAGE (If Supplied By Facility): CTDIvol = ( 3.02 ) mGy, DLP = ( 112.87 ) mGycm TECHNIQUE: Low dose screening CT exa mination performed from the base of the neck to the upper abdomen. Sagittal and coronal reformatted images performed. Sagittal and coronal MIP images provided. The measurements provided are average, rou nded measurements per ACR guidelines. Individualized dose optimization techniques were used for this CT. COMPARISON: None. FINDINGS: Mild paraseptal emphysematous changes of the bilateral lung apices. There are fibrotic bands in the right middle lobe and bilateral lower lobes. No noncalcified pulmonary nodules are localized groundglass opacity. No endobronchial lesions are seen. There is no demonstrated pleural abnormality. Normal heart and pericardium. There are calcifications of the coronary arteries. Normal mediastinum. Normal hilar regions. Normal unenha nced pulmonary arteries. There is atherosclerotic tortuosity of the aortic arch and descending thoracic aorta. Normal osseous structures. There is no demonstrated abnormality of the visualized upper a bdomen. CT/Low Dose CT Lung Screening IMPRESSION: 1. No significant indeterminate incidental findings requiring additional imaging. 2. Incident al findings include mild paraseptal emphysema of the lung apices, atherosclerosis including coronary arteries, mild parenchymal fibrotic bands. ASSESSMENT CATEGORY: LungRADS 1 - Negative. Continue jesus ual screening with LDCT in 12 months, per established ACR guidelines. Electronically Signed: Omar Montes De Oca MD at 18:16 EDT , Service support , CC: Jailene Mayfield NP; Jhony Yusuf MD Supervisor Incising: Signed 03-Jul-2018 Pelvis 1 or 2 Views Result: Comments: See Note; NOTES: [facility] Imaging Services [address] [place] [address] Pelvis 1 or 2 Views MR#: [id number] Acct: [id number] Name: WILBERT SEGURA Rep #: [id number] : 1950 M 68 From: Yuridia Dey MD PCP: Jailene Mayfield NP Status: REG CLI Study: Pelvis 1 or 2 Views Date of Exam: 07/03/18 Exam# [id number] Ordering Dr: July Mazariegos MD STUDY: X-RAY - PELVIS REASON FOR EXAM: Male, 68 years old. NO KNOWN INJURY. PAIN IN HIPS. HX OF INFLAMMATORY POLYARTHROPATHY TECHNIQUE: One view of the pelvis was obtained. COMPARISON: None. FINDINGS: There is a non-specific bowel gas pattern. Normal visualized soft tissue structures. There is narrowing with cortical sclerosis and osteophyte formation of the sacroiliac joint consis tent with degenerative osteoarthritic changes. Normal visualized bilateral superior and inferior pubic rami. Normal pubic symphysis. Normal ischial tuberosities. Normal visualized right femoral head. N ormal right acetabulum. Normal right hip joint. There are osteoarthritic changes of the left femoral head with marginal osteophyte formation. There is moderate to severe articular joint space narrowing of the left hip. RAD/Pelvis 1 or 2 Views IMPRESSION: Left hip osteoarthritis. Electronically Signed: Yuridia Dey MD at 12:37 EDT , Service support , CC: Jailene Mayfield NP; July Mazariegos MD Supervisor [employer]ising: Signed 19-Dec-2017 Chest PA and Lateral Result: Comments: See Note; NOTES: [facility] Imaging Services [address] [place] [address] Chest PA and Lateral MR#: [id number] Acct: [id number] Name: WILBERT SEGURA Rep #: [id number] : 1950 M 67 From: Liu Fatima DO PCP: Jailene Mayfield NP Status: REG CLI Study: Chest PA and Lateral Date of Exam: 12/19/17 Exam# [id number] Ordering Dr: Sue Rooney STUDY: X-RAY [facility] REASON FOR EXAM: Male, 67 years old. Abnormal lung sounds. TECHNIQUE: PA and lateral views of the chest. COMPARISON: December 02, 2016. FINDINGS: The lungs are mildly hyperexpanded. There is no focal mass or infiltrate. There is no demonstrated pleural abnormality. Normal size heart. Normal mediastinum and pearl. Normal visualized pulmonary arteries. Normal vi sualized aortic arch and descending thoracic aorta. Normal visualized thoracic spine. Normal visualized ribs, clavicles, and shoulders. There is no demonstrated abnormality of the visualized soft tiss ue structures of the upper abdomen. RAD/Chest PA and Lateral IMPRESSION: No acute cardiopulmonary disease. Electronically Signed: Orlando Whalen at 13:03 EST Tel [phone], Service support , CC: Jailene Mayfield NP; ANGELICA Rooney Supervisor Incising: Signed 19-Dec-2017 Chest PA and Lateral Result: Comments: See Note; NOTES: [facility] Imaging Services [address] [place] [address] Chest PA and Lateral MR#: [id number] Acct: [id number] Name: WILBERT SEGURA Rep #: [id number] : 1950 M 67 From: Liu Fatima DO PCP: Jailene Mayfield NP Status: REG CLI Study: Chest PA and Lateral Date of Exam: 12/19/17 Exam# [id number] Ordering Dr: Sue Rooney STUDY: X-RAY [facility] ST REASON FOR EXAM: Male, 67 years old. Abnormal lung sounds. TECHNIQUE: PA and lateral views of the chest. COMPARISON: December 02, 2016. FINDINGS: The lungs are mildly hyperexpanded. There is no focal mass or infiltrate. There is no demonstrated pleural abnormality. Normal size heart. Normal mediastinum and pearl. Normal visualized pulmonary arteries. Normal vi sualized aortic arch and descending thoracic aorta. Normal visualized thoracic spine. Normal visualized ribs, clavicles, and shoulders. There is no demonstrated abnormality of the visualized soft tiss ue structures of the upper abdomen. RAD/Chest PA and Lateral IMPRESSION: No acute cardiopulmonary disease. Electronically Signed: Orlando Whalen at 13:03 EST Tel [phone], Service support , CC: Jailene Mayfield NP; ANGELICA Rooney Supervisor Incising: Signed 19-Dec-2017 L/S Spine Min 4 Views Result: Comments: See Note; NOTES: [facility] Imaging Services [address] [place] [address] L/S Spine Min 4 Views MR#: [id number] Acct: [id number] Name: WILBERT SEGURA Rep #: [id number] : 1950 M 67 From: Liu Fatima DO PCP: Jailene Mayfield NP Status: REG CLI Study: L/S Spine Min 4 Views Date of Exam: 12/19/17 Exam# [id number] Ordering Dr: Sue Rooney STUDY: X-RAY - LUMBAR SPINE REASON FOR EXAM: Male, 67 years old. Lower back pain. TECHNIQUE: 5 view(s) of the lumbar spine were obtained. COMPARISON: None FINDINGS: There is st raightening of lumbar lordosis. There is a levoscoliosis with convexity at L4. There is a normal alignment of the vertebrae. There is multilevel endplate spondylosis of the lumbar vertebrae. There is m ulti-level degenerative disc disease with multi-level disc space narrowing. There is no evidence of acute fracture or loss of vertebral axial height. PICC line There is minimal atherosclerotic calcific ation of the abdominal aorta without a demonstrated aneurysm. RAD/L/S Spine Min 4 Views IMPRESSION: Scoliosis and degenerative changes of the lum bar spine. Electronically Signed: Liu Fatima DO at 13:02 EST Tel [phone], Service support , CC: Jailene Mayfield NP; ANGELICA Rooney Supervisor Incising: Signed 04-Apr-2017 Thyroid Result: Comments: See Note; NOTES: [facility] Imaging Services [address] [place] [address] Verdana 4d Thyroid MR#: [id number] Acct: [id number] Name: WILBERT SEGURA Rep #: [id number] : 1950 M 67 From: Liu Fatima DO PCP: Jailene Mayfield Status: REG CLI Study: Thyroid Date of Exam: 04/04/17 Exam# [id number] Ordering Dr: Jailene Mayfield STUDY: THYROID ULTRASOUND REASON FOR EXAM : Male, 67 years old. Abnormal laboratories. TECHNIQUE: Ultrasound evaluation of the thyroid was performed with real-time and static kuo-scale imaging. COMPARISON: None. FINDINGS: RIGHT LOBE: The right lobe of the thyroid gland measures 5.7 x 2.5 x 1.8 cm. There is a homogeneous echotexture. There is a 5 x 5 x 3 mm hypoechoic nodule in the lateral mid thyroid w ith peridiverticular vascularity. LEFT LOBE: The left lobe of the thyroid gland measures 5.5 x 1.8 x 1.7 cm. There is a homogeneous echotexture. There is a 0.7 x 0.5 x 0.4 cm hypoechoic nodule in the a nterior aspect of the operative mid left thyroid. There is also 0.9 x 0.7 x 0.6 cm hypoechoic nodule in the posterior lower pole which may represent a thyroid nodule or parathyroid gland. ISTHMUS: The isthmus measures 0.5 cm. The regional lymph nodes are normal. US/Thyroid IMPRESSION: Prominent thyroid with multiple small nodules as described . The largest, on the left may represent a parathyroid gland. Follow-up recommended. Electronically Signed: Liu Fatima DO at 8:53 EDT Tel [phone], Service support , Fax CC: Jailene Mayfield Supervisor Incising: Signed 02-Dec-2016 Chest PA and Lateral Result: Comments: See Note; NOTES: [facility] Imaging Services [address] [place] [address] Verdana 4d Chest PA and Lateral MR#: [id number] Acct: [id number] Name: WILBERT SEGURA ep #: [id number] : 1950 M 66 From: Liu Fatima DO PCP: Jailene Mayfield Status: REG CLI Study: Chest PA and Lateral Date of Exam: 12/02/16 Exam# [id number] Ordering Dr: Jazmine Cantor DO STUDY: X -RAY CHEST REASON FOR EXAM: Male, 66 years old. Abnormal lung sounds. TECHNIQUE: PA and lateral views of the chest. COMPARISON: November 08, 2016. FINDINGS: The lungs are well expanded. There is minimal linear atelectasis in the right middle lobe. There is no focal mass or infiltrate.. There is no demonstrated pleural abnormality. Normal size heart. Normal med iastinum and pearl. Normal visualized pulmonary arteries. There is atherosclerotic tortuosity of the aortic arch and descending thoracic aorta. Normal visualized thoracic spine. Normal visualized ribs, clavicles, and shoulders. There is no demonstrated abnormality of the visualized soft tissue structures of the upper abdomen. RAD/Chest PA and L ateral IMPRESSION: The near atelectasis in the right middle lobe without other change from November 08, 2016. Electronically Signed: Liu Fatima DO at 12:13 EST Tel [phone], Service supp ort [phone], CC: aJilene Mayfield; Jazmine Cantor DO Supervisor Incising: Signed 08-Nov-2016 Chest 1 View (Portable) Result: Comments: See Note; NOTES: [facility] Imaging Services [address] [place] [address] Verdana 4d Chest 1 View (Portable) MR#: [id number] Acct: [id number] Name: WILBERT SEGURA Rep #: [id number] : 1950 66 From: Maxi Arana MD PCP: Jailene Mayfield Status: REG ER Study: Chest 1 View (Portable) Date of Exam: 11/08/16 Exam# [id number] Ordering Dr: Leon Rodrigues MD UDY: X-RAY CHEST REASON FOR EXAM: Male, 66 years old. Chest pain. TECHNIQUE: Single AP portable view of the chest. COMPARISON: Comparison is made with prior study dated September 28, 2016. FINDINGS: EKG electrodes are seen. Hyperinflation. The lungs are clear. There is no demonstrated pleural abnormality. Normal size heart. Normal mediastinum and pearl. Normal vi sualized pulmonary arteries. There is atherosclerotic tortuosity of the aortic arch and descending thoracic aorta. There are degenerative changes of the visualized thoracic spine. Normal visualized rib s, clavicles, and shoulders. There is no demonstrated abnormality of the visualized soft tissue structures of the upper abdomen. RAD/Chest 1 Vie w (Portable) IMPRESSION: No acute abnormality is seen. Electronically Signed: Maxi Arana MD at 9:02 EST Tel [phone], Service support [phone], CC: Ann Marie Mayfield; Leon Rodrigues MD Supervisor Incising: Signed 28-Sep-2016 Chest PA and Lateral Result: Comments: See Note; NOTES: [facility] Imaging Services [address] [place] [address] Verdana 4d Chest PA and Lateral MR#: [id number] Acct: [id number] Name: WILBERT SEGURA Rep #: [id number] : 1950 M 66 From: Tree Saul MD PCP: Jailene Mayfield Status: REG CLI Study: Chest PA and Lateral Date of Exam: 09/28/16 Exam# [id number] Ordering Dr: Jailene Mayfield STUDY: X-RA Y CHEST REASON FOR EXAM: Male, 66 years old. Pulmonary infiltrates TECHNIQUE: AP and lateral COMPARISON: September 21, 2016 FINDINGS: The lungs are clear and expan ded. There is no demonstrated pleural abnormality. Normal size heart. Normal mediastinum and pearl. Normal visualized pulmonary arteries. Tortuous mildly calcified aortic arch and descending thoracic ao rta. Normal visualized thoracic spine. Normal visualized ribs, clavicles, and shoulders. There is no demonstrated abnormality of the visualized soft tissue structures of the upper abdomen. There is im proved aeration at the lung bases since prior study RAD/Chest PA and Lateral IMPRESSION: No acute cardiopulmonary pathology. Electronically Sig dell: Tree Saul MD at 21:06 EDT , Service support [phone], CC: Jailene Mayfield Supervisor Incising: Signed 21-Sep-2016 Chest PA and Lateral Result: Comments: See Note; NOTES: [facility] Imaging Services [address] [place] [address] Verdana 4d Chest PA and Lateral MR#: [id number] Acct: [id number] Name: WILEBRT SEGURA Rep #: [id number] : 1950 M 66 From: Maxi Arana MD PCP: Jailene Mayfield Status: REG CLI Study: Chest PA and Lateral Date of Exam: 09/21/16 Exam# [id number] Ordering Dr: Jailene Mayfield STUDY: X-RAY CHEST REASON FOR EXAM: Male, 66 years old. Preoperative evaluation. TECHNIQUE: PA and lateral views of the chest. COMPARISON: Comparison is made with prior study dated July 01, 2014. FINDINGS: Mild increased linear markings at the lung bases suggestive of atelectasis and/or possible early infiltrates. Followup is recommended. There is no demonstrated ple ural abnormality. Normal size heart. Normal mediastinum and pearl. Normal visualized pulmonary arteries. There is atherosclerotic tortuosity of the aortic arch and descending thoracic aorta. Normal vis ualized thoracic spine. Normal visualized ribs, clavicles, and shoulders. There is no demonstrated abnormality of the visualized soft tissue structures of the upper abdomen. RAD/Chest PA and Lateral IMPRESSION: Mild increased linear markings at the lung bases slightly worse on the right side. Electronically Signed: Maxi Arana MD 2015 at 15:14 EDT Tel [phone], Service support [phone], CC: Jailene Mayfield Supervisor Incising: Signed 06-Feb-2016 Spirometry ([id number]) Comments: see scanned document of test done to see results reviewed today with patient Result: 20-May-2014 Cerv Spine 4 or 5 Views Result: Comments: See Note; NOTES: [facility] Imaging Services [address] [place] [address] Radiology Report MR#: [id number] Acct: [id number] Name: WILBERT SEGURA Rep #: [id number] : 1950 M 64 From: Liu Fatima DO PCP: Jewell Hadley MD Status: REG CLI Study: Cerv Spine 4 or 5 Views Date of Exam: 05/20/14 Exam# [id number] Ordering Dr: Jailene Mayfield STUDY: X-RAY - CERVICAL SPINE REASON FOR EXAM: Male, 64 years old. Right-sided pain radiating into the shoulder. TECHNIQUE: 6 view(s) of the cervical spine were obtained. COMPARISON: None FINDINGS: Normal anterior atlantoaxial articulation. Normal odontoid process. Normal cervical lordosis. Normal vertebral bodies and endplates. There is no evidence of acute fract ure or loss of vertebral axial height. There is minimal degenerative disc disease most marked at C4-5. There is slight spondylolisthesis of C3 on C4. The remainder of the alignment appears preserved. There is marked neural foraminal narrowing bilaterally at C3 and on the right at C4-5. The soft tissue structures are unremarkable. IMPRESSION: Degenerative c hanges of the cervical spine, most marked at C3 or C4-5. Electronically Signed: Liu Fatima DO at 9:03 EDT Tel [phone], Service support [phone], CC: Jailene Mayfield; Jewell Hadley MD Supervisor Incising: Signed Family History Unknown Family Member Name Dates Details Father Comments: Diabetes Status: Active Social History Name Dates Details Alcohol Use: Recently quit alcohol use. Status: Active Current Work/Study Status Comments: retired Status: Active Exercise History Comments: Light Status: Active Living Situation Comments: , Lives with spouse Status: Active No Caffeine Use Status: Active No Drug Use Status: Active Tobacco Use Comments: Smokes < 1 pack of cigarettes per day- Status: Active Vital Signs Date Test Result Details :16 Temperature 98.9 f Comments: Method: Temporal Pulse 74 /min Comments: Pattern: Regular Respiration Rate 16 /min Comments: Pattern: Unlabored O2 SAT 97 % Comments: Room air BP Systolic 122 mm[Hg] Comments: Patient Position: Sitting; Cuff Location: Left Arm; Cuff Size: Standard BP Diastolic 72 mm[Hg] Comments: Patient Position: Sitting; Cuff Location: Left Arm; Cuff Size: Standard Weight 189 lb Height 70 in Body Mass Index Calculated 27.12 kg/m2 Body Surface Area Calculated 2.04 m2 :26 Temperature 97.8 f Comments: Method: Temporal Pulse 87 /min Comments: Pattern: Regular Respiration Rate 14 /min Comments: Pattern: Unlabored O2 SAT 93 % Comments: Room air BP Systolic 120 mm[Hg] Comments: Patient Position: Sitting; Cuff Location: Left Arm; Cuff Size: Standard BP Diastolic 84 mm[Hg] Comments: Patient Position: Sitting; Cuff Location: Left Arm; Cuff Size: Standard Weight 187.125 lb Height 70 in Body Mass Index Calculated 26.85 kg/m2 Body Surface Area Calculated 2.03 m2 :16 Temperature 97.8 f Comments: Method: Temporal Pulse 80 /min Comments: Pattern: Regular Respiration Rate 18 /min Comments: Pattern: Unlabored O2 SAT 93 % Comments: Room air BP Systolic 124 mm[Hg] Comments: Patient Position: Sitting; Cuff Location: Left Arm; Cuff Size: Standard BP Diastolic 80 mm[Hg] Comments: Patient Position: Sitting; Cuff Location: Left Arm; Cuff Size: Standard Weight 185.125 lb Height 70 in Body Mass Index Calculated 26.56 kg/m2 Body Surface Area Calculated 2.02 m2 :43 Pulse 82 /min Comments: Pattern: Regular Respiration Rate 16 /min Comments: Pattern: Unlabored O2 SAT 93 % Comments: Room air BP Systolic 104 mm[Hg] Comments: Patient Position: Sitting; Cuff Location: Left Arm; Cuff Size: Standard BP Diastolic 72 mm[Hg] Comments: Patient Position: Sitting; Cuff Location: Left Arm; Cuff Size: Standard Weight 185.125 lb Height 70 in Body Mass Index Calculated 26.56 kg/m2 Body Surface Area Calculated 2.02 m2 :05 Pulse 74 /min Comments: Pattern: Regular Respiration Rate 18 /min Comments: Pattern: Unlabored O2 SAT 95 % Comments: Room air BP Systolic 118 mm[Hg] Comments: Patient Position: Sitting; Cuff Location: Left Arm; Cuff Size: Large BP Diastolic 80 mm[Hg] Comments: Patient Position: Sitting; Cuff Location: Left Arm; Cuff Size: Large Weight 185.125 lb Height 70 in Body Mass Index Calculated 26.56 kg/m2 Body Surface Area Calculated 2.02 m2 :45 Temperature 97.6 f Pulse 82 /min Comments: Pattern: Regular Respiration Rate 16 /min Comments: Pattern: Unlabored O2 SAT 98 % Comments: Room air BP Systolic 140 mm[Hg] Comments: Patient Position: Sitting; Cuff Location: Left Arm; Cuff Size: Standard BP Diastolic 82 mm[Hg] Comments: Patient Position: Sitting; Cuff Location: Left Arm; Cuff Size: Standard Weight 186.65 lb Height 70 in Body Mass Index Calculated 26.78 kg/m2 Body Surface Area Calculated 2.03 m2 :56 Temperature 97.1 f Pulse 75 /min Comments: Pattern: Regular Respiration Rate 16 /min Comments: Pattern: Unlabored O2 SAT 94 % Comments: Room air BP Systolic 122 mm[Hg] Comments: Patient Position: Sitting; Cuff Location: Left Arm; Cuff Size: Standard BP Diastolic 80 mm[Hg] Comments: Patient Position: Sitting; Cuff Location: Left Arm; Cuff Size: Standard Weight 194.25 lb Height 70 in Body Mass Index Calculated 27.87 kg/m2 Body Surface Area Calculated 2.06 m2 :40 Pulse 90 /min Comments: Pattern: Regular BP Systolic 132 mm[Hg] Comments: Patient Position: Sitting; Cuff Location: Left Arm; Cuff Size: Standard BP Diastolic 70 mm[Hg] Comments: Patient Position: Sitting; Cuff Location: Left Arm; Cuff Size: Standard :29 Pulse 76 /min Comments: Pattern: Regular Respiration Rate 18 /min Comments: Pattern: Unlabored O2 SAT 97 % Comments: Room air BP Systolic 132 mm[Hg] Comments: Patient Position: Sitting; Cuff Location: Left Arm; Cuff Size: Large BP Diastolic 92 mm[Hg] Comments: Patient Position: Sitting; Cuff Location: Left Arm; Cuff Size: Large Weight 194.25 lb Height 70 in Body Mass Index Calculated 27.87 kg/m2 Body Surface Area Calculated 2.06 m2 :59 Temperature 97.3 f Pulse 70 /min Comments: Pattern: Regular Respiration Rate 17 /min Comments: Pattern: Unlabored O2 SAT 96 % Comments: Room air BP Systolic 122 mm[Hg] Comments: Patient Position: Sitting; Cuff Location: Left Arm; Cuff Size: Standard BP Diastolic 82 mm[Hg] Comments: Patient Position: Sitting; Cuff Location: Left Arm; Cuff Size: Standard Weight 197 lb Height 70 in Body Mass Index Calculated 28.27 kg/m2 Body Surface Area Calculated 2.07 m2 :10 Temperature 98.7 f Comments: Method: Temporal Pulse 90 /min Comments: Pattern: Regular Respiration Rate 16 /min Comments: Pattern: Unlabored O2 SAT 96 % Comments: Room air BP Systolic 124 mm[Hg] Comments: Patient Position: Sitting; Cuff Location: Left Arm; Cuff Size: Standard BP Diastolic 80 mm[Hg] Comments: Patient Position: Sitting; Cuff Location: Left Arm; Cuff Size: Standard Weight 197 lb Height 70 in Body Mass Index Calculated 28.27 kg/m2 Body Surface Area Calculated 2.07 m2 :30 Temperature 98.4 f Comments: Method: Temporal Pulse 68 /min Comments: Pattern: Regular Respiration Rate 16 /min Comments: Pattern: Unlabored O2 SAT 98 % Comments: Room air BP Systolic 136 mm[Hg] Comments: Patient Position: Sitting; Cuff Location: Left Arm; Cuff Size: Standard BP Diastolic 72 mm[Hg] Comments: Patient Position: Sitting; Cuff Location: Left Arm; Cuff Size: Standard Weight 196 lb Height 70 in Body Mass Index Calculated 28.12 kg/m2 Body Surface Area Calculated 2.07 m2 :19 Temperature 98.2 f Comments: Method: Temporal Pulse 78 /min Comments: Pattern: Regular Respiration Rate 16 /min Comments: Pattern: Unlabored O2 SAT 98 % Comments: Room air BP Systolic 142 mm[Hg] Comments: Patient Position: Sitting; Cuff Location: Left Arm; Cuff Size: Standard BP Diastolic 74 mm[Hg] Comments: Patient Position: Sitting; Cuff Location: Left Arm; Cuff Size: Standard Weight 196 lb Height 70 in Body Mass Index Calculated 28.12 kg/m2 Body Surface Area Calculated 2.07 m2 :20 Temperature 98.2 f Comments: Method: Temporal Pulse 70 /min Comments: Pattern: Regular Respiration Rate 16 /min Comments: Pattern: Unlabored O2 SAT 97 % Comments: Room air Weight 191.5 lb Height 70 in Body Mass Index Calculated 27.48 kg/m2 Body Surface Area Calculated 2.05 m2 :33 Temperature 97.2 f Pulse 79 /min Comments: Pattern: Regular Respiration Rate 18 /min Comments: Pattern: Unlabored O2 SAT 94 % Comments: Room air BP Systolic 122 mm[Hg] Comments: Patient Position: Sitting; Cuff Location: Left Arm; Cuff Size: Standard BP Diastolic 80 mm[Hg] Comments: Patient Position: Sitting; Cuff Location: Left Arm; Cuff Size: Standard Weight 191.5 lb Height 70 in Body Mass Index Calculated 27.48 kg/m2 Body Surface Area Calculated 2.05 m2 :50 Temperature 97.6 f Pulse 62 /min Comments: Pattern: Regular Respiration Rate 16 /min Comments: Pattern: Unlabored O2 SAT 97 % Comments: Room air BP Systolic 124 mm[Hg] Comments: Patient Position: Sitting; Cuff Location: Left Arm; Cuff Size: Standard BP Diastolic 68 mm[Hg] Comments: Patient Position: Sitting; Cuff Location: Left Arm; Cuff Size: Standard Weight 198 lb Height 70 in Body Mass Index Calculated 28.41 kg/m2 Body Surface Area Calculated 2.08 m2 :51 Temperature 97.6 f Pulse 72 /min Comments: Pattern: Regular Respiration Rate 16 /min Comments: Pattern: Unlabored O2 SAT 97 % Comments: Room air BP Systolic 116 mm[Hg] Comments: Patient Position: Sitting; Cuff Location: Left Arm; Cuff Size: Standard BP Diastolic 78 mm[Hg] Comments: Patient Position: Sitting; Cuff Location: Left Arm; Cuff Size: Standard Weight 199 lb Height 70 in Body Mass Index Calculated 28.55 kg/m2 Body Surface Area Calculated 2.08 m2 :34 Temperature 97.7 f Pulse 77 /min Comments: Pattern: Regular Respiration Rate 14 /min Comments: Pattern: Unlabored O2 SAT 97 % Comments: Room air BP Systolic 122 mm[Hg] Comments: Patient Position: Sitting; Cuff Location: Left Arm; Cuff Size: Standard BP Diastolic 82 mm[Hg] Comments: Patient Position: Sitting; Cuff Location: Left Arm; Cuff Size: Standard Weight 204 lb Height 70 in Body Mass Index Calculated 29.27 kg/m2 Body Surface Area Calculated 2.11 m2 :31 Temperature 97.2 f Pulse 82 /min Comments: Pattern: Regular Respiration Rate 16 /min Comments: Pattern: Unlabored O2 SAT 94 % Comments: Room air BP Systolic 114 mm[Hg] Comments: Patient Position: Sitting; Cuff Location: Left Arm; Cuff Size: Standard BP Diastolic 72 mm[Hg] Comments: Patient Position: Sitting; Cuff Location: Left Arm; Cuff Size: Standard Weight 204.25 lb Height 70 in Body Mass Index Calculated 29.31 kg/m2 Body Surface Area Calculated 2.11 m2 :19 Temperature 97.8 f Pulse 85 /min Comments: Pattern: Regular Respiration Rate 17 /min Comments: Pattern: Unlabored O2 SAT 94 % Comments: Room air BP Systolic 124 mm[Hg] Comments: Patient Position: Sitting; Cuff Location: Left Arm; Cuff Size: Standard BP Diastolic 82 mm[Hg] Comments: Patient Position: Sitting; Cuff Location: Left Arm; Cuff Size: Standard Weight 207 lb Height 70 in Body Mass Index Calculated 29.7 kg/m2 Body Surface Area Calculated 2.12 m2 :39 Temperature 97.4 f Pulse 83 /min Comments: Pattern: Regular Respiration Rate 18 /min Comments: Pattern: Unlabored O2 SAT 94 % Comments: Room air BP Systolic 128 mm[Hg] Comments: Patient Position: Sitting; Cuff Location: Left Arm; Cuff Size: Standard BP Diastolic 82 mm[Hg] Comments: Patient Position: Sitting; Cuff Location: Left Arm; Cuff Size: Standard Weight 204 lb Height 70 in Body Mass Index Calculated 29.27 kg/m2 Body Surface Area Calculated 2.11 m2 :25 Temperature 97.8 f Pulse 66 /min Comments: Pattern: Regular Respiration Rate 16 /min Comments: Pattern: Unlabored O2 SAT 97 % Comments: Room air BP Systolic 106 mm[Hg] Comments: Patient Position: Sitting; Cuff Location: Left Arm; Cuff Size: Standard BP Diastolic 76 mm[Hg] Comments: Patient Position: Sitting; Cuff Location: Left Arm; Cuff Size: Standard Weight 205 lb Height 70 in Body Mass Index Calculated 29.41 kg/m2 Body Surface Area Calculated 2.11 m2 :46 Temperature 97.9 f Comments: Method: Temporal Pulse 76 /min Comments: Pattern: Regular Respiration Rate 18 /min Comments: Pattern: Unlabored O2 SAT 92 % Comments: Room air BP Systolic 110 mm[Hg] Comments: Patient Position: Sitting; Cuff Location: Left Arm; Cuff Size: Large BP Diastolic 76 mm[Hg] Comments: Patient Position: Sitting; Cuff Location: Left Arm; Cuff Size: Large Weight 198.125 lb Height 70 in Body Mass Index Calculated 28.43 kg/m2 Body Surface Area Calculated 2.08 m2 :31 Temperature 98.2 f Pulse 71 /min Comments: Pattern: Regular Respiration Rate 17 /min Comments: Pattern: Unlabored O2 SAT 97 % Comments: Room air BP Systolic 116 mm[Hg] Comments: Patient Position: Sitting; Cuff Location: Left Arm; Cuff Size: Standard BP Diastolic 78 mm[Hg] Comments: Patient Position: Sitting; Cuff Location: Left Arm; Cuff Size: Standard Weight 200.5 lb Height 70 in Body Mass Index Calculated 28.77 kg/m2 Body Surface Area Calculated 2.09 m2 :20 Temperature 98.2 f Pulse 82 /min Comments: Pattern: Regular Respiration Rate 16 /min Comments: Pattern: Unlabored O2 SAT 95 % Comments: Room air BP Systolic 106 mm[Hg] Comments: Patient Position: Sitting; Cuff Location: Left Arm; Cuff Size: Standard BP Diastolic 72 mm[Hg] Comments: Patient Position: Sitting; Cuff Location: Left Arm; Cuff Size: Standard Weight 203 lb Height 70 in Body Mass Index Calculated 29.13 kg/m2 Body Surface Area Calculated 2.1 m2 :24 Temperature 98.1 f Pulse 75 /min Comments: Pattern: Regular Respiration Rate 18 /min Comments: Pattern: Unlabored O2 SAT 96 % Comments: Room air BP Systolic 112 mm[Hg] Comments: Patient Position: Sitting; Cuff Location: Left Arm; Cuff Size: Standard BP Diastolic 72 mm[Hg] Comments: Patient Position: Sitting; Cuff Location: Left Arm; Cuff Size: Standard Weight 203 lb Height 70 in Body Mass Index Calculated 29.13 kg/m2 Body Surface Area Calculated 2.1 m2 :00 Temperature 97.6 f Pulse 66 /min Comments: Pattern: Regular Respiration Rate 17 /min Comments: Pattern: Unlabored O2 SAT 97 % Comments: Room air BP Systolic 116 mm[Hg] Comments: Patient Position: Sitting; Cuff Location: Left Arm; Cuff Size: Standard BP Diastolic 78 mm[Hg] Comments: Patient Position: Sitting; Cuff Location: Left Arm; Cuff Size: Standard Weight 200 lb Height 70 in Body Mass Index Calculated 28.7 kg/m2 Body Surface Area Calculated 2.09 m2 :32 Temperature 97.2 f Pulse 69 /min Comments: Pattern: Regular Respiration Rate 16 /min Comments: Pattern: Unlabored O2 SAT 96 % Comments: Room air BP Systolic 126 mm[Hg] Comments: Patient Position: Sitting; Cuff Location: Left Arm; Cuff Size: Standard BP Diastolic 76 mm[Hg] Comments: Patient Position: Sitting; Cuff Location: Left Arm; Cuff Size: Standard Weight 200 lb Height 70 in Body Mass Index Calculated 28.7 kg/m2 Body Surface Area Calculated 2.09 m2 :46 Temperature 97.6 f Comments: Method: Temporal Pulse 80 /min Comments: Pattern: Regular Respiration Rate 18 /min Comments: Pattern: Unlabored O2 SAT 97 % Comments: Room air BP Systolic 114 mm[Hg] Comments: Patient Position: Sitting; Cuff Location: Left Arm; Cuff Size: Standard BP Diastolic 78 mm[Hg] Comments: Patient Position: Sitting; Cuff Location: Left Arm; Cuff Size: Standard Weight 200 lb Height 70 in Body Mass Index Calculated 28.7 kg/m2 Body Surface Area Calculated 2.09 m2 :17 Temperature 97.6 f Comments: Method: Temporal Pulse 78 /min Comments: Pattern: Regular Respiration Rate 18 /min Comments: Pattern: Unlabored O2 SAT 97 % Comments: Room air BP Systolic 122 mm[Hg] Comments: Patient Position: Sitting; Cuff Location: Left Arm; Cuff Size: Standard BP Diastolic 80 mm[Hg] Comments: Patient Position: Sitting; Cuff Location: Left Arm; Cuff Size: Standard Weight 194 lb Height 70 in Body Mass Index Calculated 27.84 kg/m2 Body Surface Area Calculated 2.06 m2 :00 Temperature 97.5 f Comments: Method: Oral Pulse 83 /min Comments: Pattern: Regular Respiration Rate 16 /min Comments: Pattern: Unlabored O2 SAT 98 % Comments: Room air BP Systolic 100 mm[Hg] Comments: Patient Position: Sitting; Cuff Location: Left Arm; Cuff Size: Standard BP Diastolic 60 mm[Hg] Comments: Patient Position: Sitting; Cuff Location: Left Arm; Cuff Size: Standard Weight 191 lb Height 70 in Body Mass Index Calculated 27.41 kg/m2 Body Surface Area Calculated 2.05 m2 :02 Temperature 97.2 f Comments: Method: Temporal Pulse 68 /min Comments: Pattern: Regular Respiration Rate 16 /min Comments: Pattern: Unlabored O2 SAT 96 % Comments: Room air BP Systolic 136 mm[Hg] Comments: Patient Position: Sitting; Cuff Location: Left Arm; Cuff Size: Standard BP Diastolic 80 mm[Hg] Comments: Patient Position: Sitting; Cuff Location: Left Arm; Cuff Size: Standard Weight 191 lb Height 70 in Body Mass Index Calculated 27.41 kg/m2 Body Surface Area Calculated 2.05 m2 :58 Temperature 97.6 f Comments: Method: Temporal Pulse 76 /min Comments: Pattern: Regular Respiration Rate 16 /min Comments: Pattern: Unlabored O2 SAT 97 % Comments: Room air BP Systolic 126 mm[Hg] Comments: Patient Position: Sitting; Cuff Location: Left Arm; Cuff Size: Standard BP Diastolic 78 mm[Hg] Comments: Patient Position: Sitting; Cuff Location: Left Arm; Cuff Size: Standard Weight 175 lb Height 70 in Body Mass Index Calculated 25.11 kg/m2 Body Surface Area Calculated 1.97 m2 :18 Temperature 98 f Comments: Method: Temporal Pulse 70 /min Comments: Pattern: Regular Respiration Rate 16 /min Comments: Pattern: Unlabored O2 SAT 97 % Comments: Room air BP Systolic 122 mm[Hg] Comments: Patient Position: Sitting; Cuff Location: Left Arm; Cuff Size: Standard BP Diastolic 74 mm[Hg] Comments: Patient Position: Sitting; Cuff Location: Left Arm; Cuff Size: Standard Weight 175 lb Height 70 in Body Mass Index Calculated 25.11 kg/m2 Body Surface Area Calculated 1.97 m2 :12 Pulse 69 /min Comments: Pattern: Regular Respiration Rate 16 /min Comments: Pattern: Unlabored O2 SAT 97 % Comments: Room air BP Systolic 100 mm[Hg] Comments: Patient Position: Sitting; Cuff Location: Left Arm; Cuff Size: Standard BP Diastolic 60 mm[Hg] Comments: Patient Position: Sitting; Cuff Location: Left Arm; Cuff Size: Standard Weight 175 lb Height 70 in Body Mass Index Calculated 25.11 kg/m2 Body Surface Area Calculated 1.97 m2 :55 Temperature 97.6 f Comments: Method: Temporal Pulse 60 /min Comments: Pattern: Regular Respiration Rate 20 /min Comments: Pattern: Unlabored O2 SAT 98 % Comments: Room air BP Systolic 118 mm[Hg] Comments: Patient Position: Sitting; Cuff Location: Left Arm; Cuff Size: Standard BP Diastolic 74 mm[Hg] Comments: Patient Position: Sitting; Cuff Location: Left Arm; Cuff Size: Standard Weight 175 lb Height 70 in Body Mass Index Calculated 25.11 kg/m2 Body Surface Area Calculated 1.97 m2 :15 Temperature 97.7 f Comments: Method: Temporal Pulse 70 /min Comments: Pattern: Regular Respiration Rate 18 /min Comments: Pattern: Unlabored O2 SAT 98 % Comments: Room air BP Systolic 120 mm[Hg] Comments: Patient Position: Sitting; Cuff Location: Left Arm; Cuff Size: Standard BP Diastolic 80 mm[Hg] Comments: Patient Position: Sitting; Cuff Location: Left Arm; Cuff Size: Standard Weight 175 lb Height 70 in Body Mass Index Calculated 25.11 kg/m2 Body Surface Area Calculated 1.97 m2 :21 Temperature 96.5 f Comments: Method: Temporal Pulse 56 /min Comments: Pattern: Regular Respiration Rate 16 /min Comments: Pattern: Unlabored O2 SAT 96 % Comments: Room air BP Systolic 120 mm[Hg] Comments: Patient Position: Sitting; Cuff Location: Left Arm; Cuff Size: Standard BP Diastolic 74 mm[Hg] Comments: Patient Position: Sitting; Cuff Location: Left Arm; Cuff Size: Standard Weight 166.7 lb Height 70 in Body Mass Index Calculated 23.92 kg/m2 Body Surface Area Calculated 1.93 m2 :01 Temperature 96.7 f Comments: Method: Temporal Pulse 72 /min Comments: Pattern: Regular Respiration Rate 17 /min Comments: Pattern: Unlabored O2 SAT 98 % Comments: Room air BP Systolic 122 mm[Hg] Comments: Patient Position: Sitting; Cuff Location: Left Arm; Cuff Size: Standard BP Diastolic 70 mm[Hg] Comments: Patient Position: Sitting; Cuff Location: Left Arm; Cuff Size: Standard Weight 155 lb Height 70 in Body Mass Index Calculated 22.24 kg/m2 Body Surface Area Calculated 1.87 m2 :48 Temperature 97.6 f Comments: Method: Oral Pulse 72 /min Comments: Pattern: Regular Respiration Rate 20 /min Comments: Pattern: Unlabored BP Systolic 120 mm[Hg] Comments: Patient Position: Sitting; Cuff Location: Left Arm; Cuff Size: Standard BP Diastolic 80 mm[Hg] Comments: Patient Position: Sitting; Cuff Location: Left Arm; Cuff Size: Standard Weight 155 lb Height 70 in Body Mass Index Calculated 22.24 kg/m2 Body Surface Area Calculated 1.87 m2 :10 Temperature 97.4 f Comments: Method: Oral Pulse 68 /min Comments: Pattern: Regular Respiration Rate 16 /min BP Systolic 116 mm[Hg] Comments: Patient Position: Sitting BP Diastolic 72 mm[Hg] Comments: Patient Position: Sitting Weight 155 lb :01 Temperature 97.6 f Comments: Method: Oral Pulse 72 /min Comments: Pattern: Regular Respiration Rate 18 /min O2 SAT 97 % Comments: Room air BP Systolic 130 mm[Hg] Comments: Patient Position: Sitting; Cuff Location: Left Arm; Cuff Size: Standard BP Diastolic 78 mm[Hg] Comments: Patient Position: Sitting; Cuff Location: Left Arm; Cuff Size: Standard Weight 155.5 lb Height 70 in Body Mass Index Calculated 22.31 kg/m2 Body Surface Area Calculated 1.88 m2 :36 Pulse 80 /min Comments: Pattern: Regular Respiration Rate 16 /min Comments: Pattern: Unlabored O2 SAT 97 % Comments: Room air BP Systolic 120 mm[Hg] Comments: Patient Position: Sitting; Cuff Location: Left Arm; Cuff Size: Standard BP Diastolic 62 mm[Hg] Comments: Patient Position: Sitting; Cuff Location: Left Arm; Cuff Size: Standard Weight 155.5 lb Height 70 in Body Mass Index Calculated 22.31 kg/m2 Body Surface Area Calculated 1.88 m2 :44 Temperature 97.4 f Comments: Method: Temporal Pulse 98 /min Comments: Pattern: Regular Respiration Rate 16 /min Comments: Pattern: Unlabored O2 SAT 96 % Comments: Room air BP Systolic 146 mm[Hg] Comments: Patient Position: Sitting; Cuff Location: Left Arm; Cuff Size: Standard BP Diastolic 84 mm[Hg] Comments: Patient Position: Sitting; Cuff Location: Left Arm; Cuff Size: Standard Weight 164 lb Height 70 in Body Mass Index Calculated 23.53 kg/m2 Body Surface Area Calculated 1.92 m2 :33 Temperature 98.2 f Comments: Method: Oral Pulse 78 /min Comments: Pattern: Regular Respiration Rate 18 /min Comments: Pattern: Unlabored BP Systolic 160 mm[Hg] Comments: Patient Position: Sitting; Cuff Location: Left Arm; Cuff Size: Standard BP Diastolic 90 mm[Hg] Comments: Patient Position: Sitting; Cuff Location: Left Arm; Cuff Size: Standard Weight 165 lb Height 70 in Body Mass Index Calculated 23.67 kg/m2 Body Surface Area Calculated 1.92 m2 :04 Temperature 98.4 f Comments: Method: Oral Pulse 110 /min Comments: Pattern: Regular Respiration Rate 17 /min BP Systolic 120 mm[Hg] Comments: Patient Position: Sitting; Cuff Location: Left Arm; Cuff Size: Standard BP Diastolic 78 mm[Hg] Comments: Patient Position: Sitting; Cuff Location: Left Arm; Cuff Size: Standard Weight 161.375 lb Height 70 in Body Mass Index Calculated 23.15 kg/m2 Body Surface Area Calculated 1.91 m2 :40 Pulse 96 /min Comments: Pattern: Regular Respiration Rate 18 /min Comments: Pattern: Unlabored BP Systolic 122 mm[Hg] Comments: Patient Position: Sitting; Cuff Location: Left Arm; Cuff Size: Standard BP Diastolic 90 mm[Hg] Comments: Patient Position: Sitting; Cuff Location: Left Arm; Cuff Size: Standard Weight 161.375 lb Height 70 in Body Mass Index Calculated 23.15 kg/m2 Body Surface Area Calculated 1.91 m2 :36 Temperature 97.6 f Comments: Method: Oral Pulse 74 /min Comments: Pattern: Regular Respiration Rate 20 /min Comments: Pattern: Unlabored BP Systolic 130 mm[Hg] Comments: Patient Position: Sitting; Cuff Location: Left Arm; Cuff Size: Standard BP Diastolic 90 mm[Hg] Comments: Patient Position: Sitting; Cuff Location: Left Arm; Cuff Size: Standard Weight 160 lb Height 70 in Body Mass Index Calculated 22.96 kg/m2 Body Surface Area Calculated 1.9 m2 :13 Temperature 98 f Comments: Method: Oral Pulse 78 /min Comments: Pattern: Regular Respiration Rate 18 /min Comments: Pattern: Unlabored BP Systolic 124 mm[Hg] Comments: Patient Position: Sitting; Cuff Location: Left Arm; Cuff Size: Standard BP Diastolic 84 mm[Hg] Comments: Patient Position: Sitting; Cuff Location: Left Arm; Cuff Size: Standard Weight 165 lb Height 70 in Body Mass Index Calculated 23.67 kg/m2 Body Surface Area Calculated 1.92 m2 :23 Temperature 98.5 f Comments: Method: Oral Pulse 84 /min Comments: Pattern: Regular Respiration Rate 16 /min Comments: Pattern: Unlabored BP Systolic 118 mm[Hg] Comments: Patient Position: Sitting; Cuff Location: Left Arm; Cuff Size: Standard BP Diastolic 76 mm[Hg] Comments: Patient Position: Sitting; Cuff Location: Left Arm; Cuff Size: Standard Weight 165 lb Height 70 in Body Mass Index Calculated 23.67 kg/m2 Body Surface Area Calculated 1.92 m2 :08 Temperature 97.8 f Comments: Method: Oral Pulse 84 /min Comments: Pattern: Regular Respiration Rate 16 /min Comments: Pattern: Unlabored BP Systolic 132 mm[Hg] Comments: Patient Position: Sitting; Cuff Location: Left Arm; Cuff Size: Large BP Diastolic 82 mm[Hg] Comments: Patient Position: Sitting; Cuff Location: Left Arm; Cuff Size: Large Weight 163 lb Height 70 in Body Mass Index Calculated 23.39 kg/m2 Body Surface Area Calculated 1.91 m2 :41 Temperature 97.9 f Comments: Method: Oral Pulse 82 /min Comments: Pattern: Regular Respiration Rate 20 /min Comments: Pattern: Unlabored BP Systolic 120 mm[Hg] Comments: Patient Position: Sitting; Cuff Location: Left Arm; Cuff Size: Standard BP Diastolic 82 mm[Hg] Comments: Patient Position: Sitting; Cuff Location: Left Arm; Cuff Size: Standard Weight 168 lb Height 70 in Body Mass Index Calculated 24.11 kg/m2 Body Surface Area Calculated 1.94 m2 :23 Temperature 97.9 f Comments: Method: Oral Pulse 64 /min Comments: Pattern: Regular Respiration Rate 16 /min Comments: Pattern: Unlabored BP Systolic 122 mm[Hg] Comments: Patient Position: Sitting; Cuff Location: Left Arm; Cuff Size: Standard BP Diastolic 72 mm[Hg] Comments: Patient Position: Sitting; Cuff Location: Left Arm; Cuff Size: Standard Weight 168 lb Height 70 in Body Mass Index Calculated 24.11 kg/m2 Body Surface Area Calculated 1.94 m2 :36 Temperature 97.9 f Comments: Method: Oral Pulse 80 /min Comments: Pattern: Regular Respiration Rate 16 /min Comments: Pattern: Unlabored BP Systolic 100 mm[Hg] Comments: Patient Position: Sitting; Cuff Location: Left Arm; Cuff Size: Large BP Diastolic 70 mm[Hg] Comments: Patient Position: Sitting; Cuff Location: Left Arm; Cuff Size: Large Weight 168 lb Height 70 in Body Mass Index Calculated 24.11 kg/m2 Body Surface Area Calculated 1.94 m2 :45 Temperature 16 f Comments: Method: Oral Pulse 70 /min Comments: Pattern: Regular Respiration Rate 16 /min Comments: Pattern: Unlabored BP Systolic 128 mm[Hg] Comments: Patient Position: Supine; Cuff Location: Left Arm; Cuff Size: Standard BP Diastolic 78 mm[Hg] Comments: Patient Position: Supine; Cuff Location: Left Arm; Cuff Size: Standard Weight 164.4375 lb Height 70 in Body Mass Index Calculated 23.59 kg/m2 Body Surface Area Calculated 1.92 m2 :58 Temperature 98.2 f Comments: Method: Oral Pulse 70 /min Comments: Pattern: Regular Respiration Rate 18 /min Comments: Pattern: Unlabored BP Systolic 120 mm[Hg] Comments: Patient Position: Sitting; Cuff Location: Left Arm; Cuff Size: Standard BP Diastolic 78 mm[Hg] Comments: Patient Position: Sitting; Cuff Location: Left Arm; Cuff Size: Standard Weight 161 lb Height 70 in Body Mass Index Calculated 23.1 kg/m2 Body Surface Area Calculated 1.9 m2 :20 Temperature 97.6 f Comments: Method: Oral Pulse 68 /min Comments: Pattern: Regular Respiration Rate 18 /min Comments: Pattern: Unlabored BP Systolic 118 mm[Hg] Comments: Patient Position: Sitting; Cuff Location: Left Arm; Cuff Size: Standard BP Diastolic 72 mm[Hg] Comments: Patient Position: Sitting; Cuff Location: Left Arm; Cuff Size: Standard Weight 163 lb Height 70 in Body Mass Index Calculated 23.39 kg/m2 Body Surface Area Calculated 1.91 m2 :30 Temperature 97.6 f Comments: Method: Oral Pulse 74 /min Comments: Pattern: Regular Respiration Rate 18 /min Comments: Pattern: Unlabored BP Systolic 142 mm[Hg] Comments: Patient Position: Sitting; Cuff Location: Left Arm; Cuff Size: Standard BP Diastolic 84 mm[Hg] Comments: Patient Position: Sitting; Cuff Location: Left Arm; Cuff Size: Standard Weight 163 lb Height 70 in Body Mass Index Calculated 23.39 kg/m2 Body Surface Area Calculated 1.91 m2 :34 Temperature 97.6 f Comments: Method: Oral Pulse 78 /min Comments: Pattern: Regular Respiration Rate 18 /min Comments: Pattern: Unlabored BP Systolic 116 mm[Hg] Comments: Patient Position: Sitting; Cuff Location: Left Arm; Cuff Size: Standard BP Diastolic 82 mm[Hg] Comments: Patient Position: Sitting; Cuff Location: Left Arm; Cuff Size: Standard Weight 163 lb Height 70 in Body Mass Index Calculated 23.39 kg/m2 Body Surface Area Calculated 1.91 m2 :33 Temperature 97.6 f Comments: Method: Oral Pulse 70 /min Comments: Pattern: Regular Respiration Rate 18 /min Comments: Pattern: Unlabored BP Systolic 114 mm[Hg] Comments: Patient Position: Sitting; Cuff Location: Left Arm; Cuff Size: Standard BP Diastolic 78 mm[Hg] Comments: Patient Position: Sitting; Cuff Location: Left Arm; Cuff Size: Standard Weight 165 lb Height 70 in Body Mass Index Calculated 23.67 kg/m2 Body Surface Area Calculated 1.92 m2 :49 Temperature 98.2 f Comments: Method: Oral Pulse 70 /min Comments: Pattern: Regular Respiration Rate 18 /min Comments: Pattern: Unlabored BP Systolic 124 mm[Hg] Comments: Patient Position: Sitting; Cuff Location: Left Arm; Cuff Size: Standard BP Diastolic 80 mm[Hg] Comments: Patient Position: Sitting; Cuff Location: Left Arm; Cuff Size: Standard Weight 163 lb Height 70 in Body Mass Index Calculated 23.39 kg/m2 Body Surface Area Calculated 1.91 m2 :11 Temperature 97.4 f Comments: Method: Oral Pulse 74 /min Comments: Pattern: Regular Respiration Rate 16 /min Comments: Pattern: Unlabored BP Systolic 118 mm[Hg] Comments: Patient Position: Sitting; Cuff Location: Left Arm; Cuff Size: Standard BP Diastolic 78 mm[Hg] Comments: Patient Position: Sitting; Cuff Location: Left Arm; Cuff Size: Standard Weight 168.5 lb Height 70 in Body Mass Index Calculated 24.18 kg/m2 Body Surface Area Calculated 1.94 m2 :52 Temperature 98.4 f Comments: Method: Oral Respiration Rate 18 /min Comments: Pattern: Unlabored BP Systolic 138 mm[Hg] Comments: Patient Position: Supine; Cuff Location: Left Arm; Cuff Size: Standard BP Diastolic 84 mm[Hg] Comments: Patient Position: Supine; Cuff Location: Left Arm; Cuff Size: Standard Weight 168.5 lb Height 70 in Body Mass Index Calculated 24.18 kg/m2 Body Surface Area Calculated 1.94 m2 :15 Temperature 97.6 f Comments: Method: Oral Pulse 68 /min Comments: Pattern: Regular Respiration Rate 18 /min Comments: Pattern: Unlabored BP Systolic 124 mm[Hg] Comments: Patient Position: Sitting; Cuff Location: Left Arm; Cuff Size: Standard BP Diastolic 82 mm[Hg] Comments: Patient Position: Sitting; Cuff Location: Left Arm; Cuff Size: Standard Weight 173 lb Height 71 in Body Mass Index Calculated 24.13 kg/m2 Body Surface Area Calculated 1.98 m2 :59 Temperature 98.2 f Comments: Method: Oral Pulse 70 /min Comments: Pattern: Regular Respiration Rate 20 /min Comments: Pattern: Unlabored BP Systolic 136 mm[Hg] Comments: Patient Position: Sitting; Cuff Location: Left Arm; Cuff Size: Standard BP Diastolic 90 mm[Hg] Comments: Patient Position: Sitting; Cuff Location: Left Arm; Cuff Size: Standard Weight 173 lb Height 71 in Body Mass Index Calculated 24.13 kg/m2 Body Surface Area Calculated 1.98 m2 :30 Temperature 97.9 f Comments: Method: Oral Pulse 70 /min Comments: Pattern: Regular Respiration Rate 18 /min Comments: Pattern: Unlabored BP Systolic 120 mm[Hg] Comments: Patient Position: Sitting; Cuff Location: Left Arm; Cuff Size: Standard BP Diastolic 78 mm[Hg] Comments: Patient Position: Sitting; Cuff Location: Left Arm; Cuff Size: Standard Weight 173 lb Height 71 in Body Mass Index Calculated 24.13 kg/m2 Body Surface Area Calculated 1.98 m2 :01 Pulse 74 /min Comments: Pattern: Regular Respiration Rate 18 /min Comments: Pattern: Unlabored BP Systolic 122 mm[Hg] Comments: Patient Position: Sitting; Cuff Location: Left Arm; Cuff Size: Standard BP Diastolic 78 mm[Hg] Comments: Patient Position: Sitting; Cuff Location: Left Arm; Cuff Size: Standard Weight 177 lb :15 Pulse 78 /min Comments: Pattern: Regular Respiration Rate 18 /min Comments: Pattern: Unlabored BP Systolic 128 mm[Hg] Comments: Patient Position: Sitting; Cuff Location: Left Arm; Cuff Size: Standard BP Diastolic 84 mm[Hg] Comments: Patient Position: Sitting; Cuff Location: Left Arm; Cuff Size: Standard :05 Pulse 82 /min Comments: Pattern: Regular Respiration Rate 18 /min Comments: Pattern: Unlabored BP Systolic 140 mm[Hg] Comments: Patient Position: Sitting; Cuff Location: Left Arm; Cuff Size: Standard BP Diastolic 80 mm[Hg] Comments: Patient Position: Sitting; Cuff Location: Left Arm; Cuff Size: Standard Weight 179.1875 lb :45 Temperature 97.6 f Comments: Method: Oral Pulse 74 /min Comments: Pattern: Regular Respiration Rate 18 /min Comments: Pattern: Unlabored BP Systolic 136 mm[Hg] Comments: Patient Position: Sitting; Cuff Location: Left Arm; Cuff Size: Standard BP Diastolic 84 mm[Hg] Comments: Patient Position: Sitting; Cuff Location: Left Arm; Cuff Size: Standard Weight 188 lb :31 Temperature 97.4 f Comments: Method: Oral Pulse 80 /min Comments: Pattern: Regular Respiration Rate 18 /min Comments: Pattern: Unlabored BP Systolic 140 mm[Hg] Comments: Patient Position: Sitting; Cuff Location: Left Arm; Cuff Size: Large BP Diastolic 80 mm[Hg] Comments: Patient Position: Sitting; Cuff Location: Left Arm; Cuff Size: Large Weight 188 lb Height 0 in Head Circumference 0.00 cm :33 Pulse 74 /min Comments: Pattern: Regular Respiration Rate 16 /min Comments: Pattern: Unlabored BP Systolic 124 mm[Hg] Comments: Patient Position: Sitting; Cuff Location: Left Arm; Cuff Size: Standard BP Diastolic 80 mm[Hg] Comments: Patient Position: Sitting; Cuff Location: Left Arm; Cuff Size: Standard Weight 181 lb Height 0 in Head Circumference 0.00 cm :36 Pulse 100 /min Comments: Pattern: Regular Respiration Rate 20 /min Comments: Pattern: Unlabored BP Systolic 144 mm[Hg] Comments: Patient Position: Sitting; Cuff Location: Left Arm; Cuff Size: Large BP Diastolic 88 mm[Hg] Comments: Patient Position: Sitting; Cuff Location: Left Arm; Cuff Size: Large Weight 175 lb Height 71 in Body Mass Index Calculated 24.41 kg/m2 Body Surface Area Calculated 1.99 m2 Head Circumference 0.00 cm :39 Pulse 66 /min Comments: Pattern: Regular Respiration Rate 16 /min Comments: Pattern: Unlabored BP Systolic 132 mm[Hg] Comments: Patient Position: Supine; Cuff Location: Left Arm; Cuff Size: Standard BP Diastolic 80 mm[Hg] Comments: Patient Position: Supine; Cuff Location: Left Arm; Cuff Size: Standard Weight 175 lb Height 71 in Body Mass Index Calculated 24.41 kg/m2 Body Surface Area Calculated 1.99 m2 Head Circumference 0.00 cm :27 Pulse 70 /min Comments: Pattern: Regular Respiration Rate 16 /min Comments: Pattern: Unlabored BP Systolic 120 mm[Hg] Comments: Patient Position: Sitting; Cuff Location: Left Arm; Cuff Size: Standard BP Diastolic 80 mm[Hg] Comments: Patient Position: Sitting; Cuff Location: Left Arm; Cuff Size: Standard Weight 174 lb Height 0 in Head Circumference 0.00 cm :35 Temperature 98.9 f Comments: Method: Oral Pulse 70 /min Comments: Pattern: Regular Respiration Rate 18 /min Comments: Pattern: Unlabored BP Systolic 124 mm[Hg] Comments: Patient Position: Sitting; Cuff Location: Left Arm; Cuff Size: Standard BP Diastolic 80 mm[Hg] Comments: Patient Position: Sitting; Cuff Location: Left Arm; Cuff Size: Standard Weight 0 lb Height 0 in Head Circumference 0.00 cm :43 Pulse 70 /min Comments: Pattern: Regular Respiration Rate 16 /min Comments: Pattern: Unlabored BP Systolic 120 mm[Hg] Comments: Patient Position: Sitting; Cuff Location: Left Arm; Cuff Size: Standard BP Diastolic 80 mm[Hg] Comments: Patient Position: Sitting; Cuff Location: Left Arm; Cuff Size: Standard Weight 0 lb Height 0 in Head Circumference 0.00 cm :21 Pulse 74 /min Comments: Pattern: Regular Respiration Rate 18 /min Comments: Pattern: Unlabored BP Systolic 126 mm[Hg] Comments: Patient Position: Sitting; Cuff Location: Right Arm; Cuff Size: Standard BP Diastolic 92 mm[Hg] Comments: Patient Position: Sitting; Cuff Location: Right Arm; Cuff Size: Standard Weight 0 lb Height 0 in Head Circumference 0.00 cm :04 Temperature 98.2 f Comments: Method: Oral Pulse 68 /min Comments: Pattern: Regular Respiration Rate 16 /min Comments: Pattern: Unlabored BP Systolic 120 mm[Hg] Comments: Patient Position: Sitting; Cuff Location: Left Arm; Cuff Size: Standard BP Diastolic 84 mm[Hg] Comments: Patient Position: Sitting; Cuff Location: Left Arm; Cuff Size: Standard Weight 0 lb Height 0 in Head Circumference 0.00 cm :15 Temperature 98.2 f Comments: Method: Oral Pulse 72 /min Comments: Pattern: Regular Respiration Rate 18 /min Comments: Pattern: Unlabored BP Systolic 118 mm[Hg] Comments: Patient Position: Sitting; Cuff Location: Left Arm; Cuff Size: Standard BP Diastolic 78 mm[Hg] Comments: Patient Position: Sitting; Cuff Location: Left Arm; Cuff Size: Standard Weight 172 lb Height 0 in Head Circumference 0.00 cm :45 Temperature 98.2 f Comments: Method: Oral Pulse 68 /min Comments: Pattern: Regular Respiration Rate 18 /min Comments: Pattern: Unlabored BP Systolic 120 mm[Hg] Comments: Patient Position: Sitting; Cuff Location: Left Arm; Cuff Size: Standard BP Diastolic 78 mm[Hg] Comments: Patient Position: Sitting; Cuff Location: Left Arm; Cuff Size: Standard Weight 0 lb Height 0 in Head Circumference 0.00 cm :14 Temperature 97.6 f Comments: Method: Oral Pulse 70 /min Comments: Pattern: Regular Respiration Rate 18 /min Comments: Pattern: Unlabored BP Systolic 122 mm[Hg] Comments: Patient Position: Sitting; Cuff Location: Left Arm; Cuff Size: Standard BP Diastolic 78 mm[Hg] Comments: Patient Position: Sitting; Cuff Location: Left Arm; Cuff Size: Standard Weight 0 lb Height 0 in Head Circumference 0.00 cm :40 Temperature 98.2 f Comments: Method: Oral Pulse 72 /min Comments: Pattern: Regular Respiration Rate 18 /min Comments: Pattern: Unlabored BP Systolic 120 mm[Hg] Comments: Patient Position: Sitting; Cuff Location: Left Arm; Cuff Size: Standard BP Diastolic 78 mm[Hg] Comments: Patient Position: Sitting; Cuff Location: Left Arm; Cuff Size: Standard Weight 174 lb Height 0 in Head Circumference 0.00 cm :31 Temperature 98.4 f Comments: Method: Oral Pulse 74 /min Comments: Pattern: Regular Respiration Rate 18 /min Comments: Pattern: Unlabored BP Systolic 126 mm[Hg] Comments: Patient Position: Sitting; Cuff Location: Left Arm; Cuff Size: Standard BP Diastolic 78 mm[Hg] Comments: Patient Position: Sitting; Cuff Location: Left Arm; Cuff Size: Standard Weight 170 lb Height 0 in Head Circumference 0.00 cm :14 Temperature 98.1 f Comments: Method: Oral Pulse 72 /min Comments: Pattern: Regular Respiration Rate 16 /min Comments: Pattern: Unlabored BP Systolic 140 mm[Hg] Comments: Patient Position: Sitting; Cuff Location: Left Arm; Cuff Size: Standard BP Diastolic 86 mm[Hg] Comments: Patient Position: Sitting; Cuff Location: Left Arm; Cuff Size: Standard Weight 0 lb Height 0 in Head Circumference 0.00 cm :31 Temperature 98.2 f Comments: Method: Oral Pulse 74 /min Comments: Pattern: Regular Respiration Rate 18 /min Comments: Pattern: Unlabored BP Systolic 122 mm[Hg] Comments: Patient Position: Sitting; Cuff Location: Left Arm; Cuff Size: Standard BP Diastolic 80 mm[Hg] Comments: Patient Position: Sitting; Cuff Location: Left Arm; Cuff Size: Standard Weight 0 lb Height 0 in Head Circumference 0.00 cm :30 Temperature 98.6 f Comments: Method: Oral Pulse 70 /min Comments: Pattern: Regular Respiration Rate 20 /min Comments: Pattern: Unlabored BP Systolic 120 mm[Hg] Comments: Patient Position: Sitting; Cuff Location: Left Arm; Cuff Size: Standard BP Diastolic 80 mm[Hg] Comments: Patient Position: Sitting; Cuff Location: Left Arm; Cuff Size: Standard Weight 170 lb Height 0 in Head Circumference 0.00 cm :31 Temperature 98.4 f Comments: Method: Oral Pulse 64 /min Comments: Pattern: Regular Respiration Rate 20 /min Comments: Pattern: Unlabored BP Systolic 124 mm[Hg] Comments: Patient Position: Sitting; Cuff Location: Left Arm; Cuff Size: Standard BP Diastolic 78 mm[Hg] Comments: Patient Position: Sitting; Cuff Location: Left Arm; Cuff Size: Standard Weight 171 lb Height 0 in Head Circumference 0.00 cm :45 Temperature 97.4 f Comments: Method: Oral Pulse 64 /min Comments: Pattern: Regular Respiration Rate 18 /min Comments: Pattern: Unlabored BP Systolic 116 mm[Hg] Comments: Patient Position: Sitting; Cuff Location: Left Arm; Cuff Size: Standard BP Diastolic 72 mm[Hg] Comments: Patient Position: Sitting; Cuff Location: Left Arm; Cuff Size: Standard Weight 0 lb Height 0 in Head Circumference 0.00 cm :43 Temperature 97.6 f Comments: Method: Oral Pulse 60 /min Comments: Pattern: Regular Respiration Rate 16 /min Comments: Pattern: Unlabored BP Systolic 126 mm[Hg] Comments: Patient Position: Sitting; Cuff Location: Left Arm; Cuff Size: Standard BP Diastolic 70 mm[Hg] Comments: Patient Position: Sitting; Cuff Location: Left Arm; Cuff Size: Standard Weight 171 lb Height 0 in Head Circumference 0.00 cm :56 Temperature 98.6 f Comments: Method: Oral Pulse 60 /min Comments: Pattern: Regular Respiration Rate 16 /min Comments: Pattern: Unlabored BP Systolic 124 mm[Hg] Comments: Patient Position: Sitting; Cuff Location: Left Arm; Cuff Size: Standard BP Diastolic 68 mm[Hg] Comments: Patient Position: Sitting; Cuff Location: Left Arm; Cuff Size: Standard Weight 171 lb Height 0 in Head Circumference 0.00 cm :59 Temperature 98.2 f Comments: Method: Oral Pulse 60 /min Comments: Pattern: Regular Respiration Rate 16 /min Comments: Pattern: Unlabored BP Systolic 118 mm[Hg] Comments: Patient Position: Sitting; Cuff Location: Left Arm; Cuff Size: Standard BP Diastolic 70 mm[Hg] Comments: Patient Position: Sitting; Cuff Location: Left Arm; Cuff Size: Standard Weight 0 lb Height 0 in Head Circumference 0.00 cm :55 Temperature 98.6 f Comments: Method: Oral Pulse 72 /min Comments: Pattern: Regular Respiration Rate 20 /min Comments: Pattern: Unlabored BP Systolic 120 mm[Hg] Comments: Patient Position: Sitting; Cuff Location: Left Arm; Cuff Size: Standard BP Diastolic 80 mm[Hg] Comments: Patient Position: Sitting; Cuff Location: Left Arm; Cuff Size: Standard Weight 0 lb Height 0 in Head Circumference 0.00 cm :12 Temperature 98.6 f Comments: Method: Oral Pulse 70 /min Comments: Pattern: Regular Respiration Rate 20 /min Comments: Pattern: Unlabored BP Systolic 120 mm[Hg] Comments: Patient Position: Sitting; Cuff Location: Left Arm; Cuff Size: Standard BP Diastolic 84 mm[Hg] Comments: Patient Position: Sitting; Cuff Location: Left Arm; Cuff Size: Standard Weight 172 lb Height 0 in Head Circumference 0.00 cm :06 Temperature 98.2 f Comments: Method: Undefined Pulse 66 /min Comments: Pattern: Regular Respiration Rate 16 /min Comments: Pattern: Unlabored BP Systolic 138 mm[Hg] Comments: Patient Position: Sitting; Cuff Location: Left Arm; Cuff Size: Standard BP Diastolic 88 mm[Hg] Comments: Patient Position: Sitting; Cuff Location: Left Arm; Cuff Size: Standard Weight 172 lb Height 0 in Head Circumference 0.00 cm :17 Temperature 98.2 f Comments: Method: Oral Pulse 76 /min Comments: Pattern: Regular Respiration Rate 16 /min Comments: Pattern: Unlabored BP Systolic 104 mm[Hg] Comments: Patient Position: Sitting; Cuff Location: Left Arm; Cuff Size: Standard BP Diastolic 64 mm[Hg] Comments: Patient Position: Sitting; Cuff Location: Left Arm; Cuff Size: Standard Weight 0 lb Height 0 in Head Circumference 0.00 cm :10 Pulse 78 /min Comments: Pattern: Regular Respiration Rate 18 /min Comments: Pattern: Undefined BP Systolic 138 mm[Hg] Comments: Patient Position: Sitting; Cuff Location: Undefined; Cuff Size: Undefined BP Diastolic 84 mm[Hg] Comments: Patient Position: Sitting; Cuff Location: Undefined; Cuff Size: Undefined Weight 0 lb Height 0 in Head Circumference 0.00 cm :40 Temperature 97.6 f Comments: Method: Oral Pulse 74 /min Comments: Pattern: Regular Respiration Rate 20 /min Comments: Pattern: Unlabored BP Systolic 140 mm[Hg] Comments: Patient Position: Sitting; Cuff Location: Left Arm; Cuff Size: Standard BP Diastolic 92 mm[Hg] Comments: Patient Position: Sitting; Cuff Location: Left Arm; Cuff Size: Standard Weight 172 lb Height 0 in Head Circumference 0.00 cm Results Date Description Value Details [id number] CREATININE FINGERSTICK Comments: [facility] [address] [place] [address] CREATININE WB 0.8 mg/dL (Normal) Range: 0.70-1.30 :41 Anti-Centromere B Ab Comments: [facility] (refer to report for specific site)refer to report for address and phone number ANTI-CENT B <0.2 {AI} (Normal) Range: 0.0-0.9 :41 Anti-dsDNA Ab Comments: [facility] (refer to report for specific site)refer to report for address and phone number dsDNA AB 17 {IU/mL} (Abnormal) Range: 0-9 Comments: Negative <5 Equivocal 5 - 9 Positive >9 :41 Anti-Abigail Comments: [facility] (refer to report for specific site)refer to report for address and phone number ANTI-ABIGAIL <0.2 {AI} (Normal) Range: 0.0-0.9 :41 [id number] AB Comments: [facility] (refer to report for specific site)refer to report for address and phone number ANTISCLER <0.2 {AI} (Normal) Range: 0.0-0.9 :41 ANTINUCLEAR ANTIBODIES DIRECT Comments: [facility] (refer to report for specific site)refer to report for address and phone number ALISON-DIRECT Positive (Abnormal) Comments: Performed at: [address] [id number] Director: Ger Gonzalez PhD, Phone: [phone] :41 CBC W/Diff, Automated Comments: [facility] [id number] [place] [address], [address] Absolute Lymph 1.86 {X10_3/ul} (Normal) Range: 0.83-4.51 Absolute Neut 5.8 {X10_3/uL} (Normal) Range: 2.0-7.7 IM GRAN % 0.200 % (Normal) Range: 0.0-0.9 Comments: IG% - Immature Granulocytes (promyelocytes, myelocytes andmetamyelocytes) > 1% indicates that a LEFT SHIFT is Present. BASO% 0.2 % (Normal) Range: 0-1 EO% 1.1 % (Normal) Range: 0-5 MONO% 7.1 % (Normal) Range: 0-10 LY% 22.1 % (Normal) Range: 19-41 NEUT% 69.3 % (Normal) Range: 47-70 MPV 10.1 fL (Normal) Range: 6.2-12.0 PLT 209 K/mm3 (Normal) Range: 150-450 RDW SD 42.9 fL (Normal) Range: 35.1-43.9 RDW CV 12.3 % (Normal) Range: 11.6-14.6 MCHC 34.4 {g/gl} (Normal) Range: 32-36 MCH 33.0 pg (Abnormal) Range: 27.0-32.0 MCV 96.0 fL (Abnormal) Range: 80-94 HCT 48.0 % (Normal) Range: 40-54 HGB 16.5 g/dL (Normal) Range: 13.0-16.5 RBC 5.00 {M/mm3} (Normal) Range: 4.6-6.2 WBC 8.4 K/mm3 (Normal) Range: 4.4-11.0 [id number] CCP IgG Antibodies Comments: [facility] (refer to report for specific site)refer to report for address and phone number ANTI-CCP [id number] 5 {units} (Normal) Range: 0-19 Comments: Negative <20 Weak positive 20 - 39 Moderate positive 40 - 59 Strong positive >59 :41 Complement C3 Comments: [facility] (refer to report for specific site)refer to report for address and phone number COMP C3 140 mg/dL (Normal) Range: 82-167 :41 Complement C4 Comments: [facility] (refer to report for specific site)refer to report for address and phone number COMP C4 25 mg/dL (Normal) Range: 14-44 :41 Comprehensive Metabolic Profil Comments: [facility] [id number] [place], [place], [id number] GAP 5 (Normal) Range: 5-15 CO2 29.0 mmol/L (Normal) Range: 21.0-32.0 CL 106 mmol/L (Normal) Range: 98-107 K 3.5 mmol/L (Normal) Range: 3.5-5.1 NA 140 mmol/L (Normal) Range: 136-145 T BILI 0.90 mg/dL (Normal) Range: 0.20-1.00 ALT 21 U/L (Normal) Range: 16-61 ALK P 70 U/L (Normal) Range: 45-117 AST 13 U/L (Abnormal) Range: 15-37 CA 8.9 mg/dL (Normal) Range: 8.5-10.1 A/G 1.0 {RATIO} (Normal) Range: 0.9-2.4 GLOB 4.0 g/dL (Normal) Range: 2.2-4.2 ALB 4.0 g/dL (Normal) Range: 3.2-5.0 T PROT 8.0 g/dL (Normal) Range: 6.4-8.2 BUN/CRE 16.6 {RATIO} (Normal) Range: 10-20 EST GFR - AA 116 mL/min (Normal) Comments: GFR Calc EST GFR 96 mL/min (Normal) Comments: Non- GFR Calc CREAT,SERUM 0.84 mg/dL (Normal) Range: 0.70-1.30 Comments: The validity of the calculated GFR AND GFRAA in patients over70 years has not been determined. Clinical correlation isessential. BUN 14 mg/dL (Normal) Range: 7-18 GLU 72 mg/dL (Abnormal) Range: 74-106 Comments: Please note revised GLUCOSE reference range [id number]. [id number] Hep B Surface Antibodies Comments: [facility] (refer to report for specific site)refer to report for address and phone number Hep B Arpita AB Non Reactive (Normal) Comments: Non Reactive: Inconsistent with immunity, less than 10 mIU/mL Reactive: Consistent with immunity, greater than 9.9 mIU/ mL [id number] Hepatitis B Surface Ag Comments: [facility] (refer to report for specific site)refer to report for address and phone number HB SURF AG Negative (Normal) Comments: Performed at: - [facility] [id number] Director: Ger Gonzalez PhD, Phone: [phone] at: - [facility] [id number] Director: Raghu Bowles PhD, Phone: [phone] at: - [address] [id number] Director: Glenn Armijo MD, Phone: [phone] :41 Hepatitis C Antibodies Comments: [facility] (refer to report for specific site)refer to report for address and phone number HEP C AB <0.1 {s/co_ratio} Range: 0.0-0.9 (Normal) Comments: Negative: < 0.8 Indeterminate: 0.8 - 0.9 Positive: > 0.9 The CDC recommends that a positive HCV antibody result be followed up with a HCV Nucleic Acid Amplification test (680350). : HLA B27 Negative (Normal) Comments: [facility] (refer to report for specific site)refer to report for address and phone number 41 Comments: HLA-B*27 MyphaqjeP22 allele interpretation for all loci based on IMGT/HLAdatabase version 3.27This test was developed and its performance characteristicsdetermined by [facility]. It has not been cleared o r approvedby the Food and Drug Administration.[facility] CLIA ID Number [id number] test was performed using PCR (Polymerase ChainReaction)/SSOP (Sequence Specific Oligonucleotide Probes)technique. SBT (Sequence Based Typing) and/or SSP(Sequence Specific Primers) may be used as supplementalmethods when necessary. Please contact [facility] CustomerService at if you have any questions. Director of [facility] Dr Raghu Bowles, PhD :41 Protein+Creatinine Ratio,Urine Comments: [facility] [id number] [facility]. [place], [place], [phone] PROT:CRE RATIO 102 {mg/g_CRE} (Normal) Range: 0-200 PROTEIN,UR.RAN. 17.0 mg/dL (Abnormal) UR CREAT 166.00 mg/dL (Normal) :41 Urinalysis, Routine (Dipstick) Comments: How was Urine Obtained? [facility] [id number] [facility] [place], [address] LEUK ESTERASE 25 /ul (Abnormal) OCCULT BLOOD-UR 10 /ul (Abnormal) NITRITE UR Negative (Normal) UROBILI 4 mg/dL (Abnormal) PROT DIPSTX Negative mg/dL (Normal) pH UR 7.0 (Normal) Range: 5.0 - 8.0 SP.GR. DIPSTX 1.015 (Normal) Range: 1.002-1.030 KETONE UR Negative mg/dL (Normal) BILIRUBIN URINE Negative mg/dL (Normal) GLUCOSE, UR Normal mg/dL (Normal) CLARITY Clear (Normal) COLOR Yellow (Normal) 8-Fdv-523894:35 CBC, Platelets & Auto Diff Comments: PATIENT NOT FASTINGPERFORMED BY: [facility] Wwtghs0667 [facility] [id number] ([id number]) Immature Grans (Abs) 0.0 {x10E3/uL} (Normal) Range: 0.0-0.1 Immature Granulocytes 0 % (Normal) Baso (Absolute) 0.0 {x10E3/uL} (Normal) Range: 0.0-0.2 Eos (Absolute) 0.1 {x10E3/uL} (Normal) Range: 0.0-0.4 Monocytes(Absolute) 0.6 {x10E3/uL} (Normal) Range: 0.1-0.9 Lymphs (Absolute) 1.4 {x10E3/uL} (Normal) Range: 0.7-3.1 Neutrophils (Absolute) 6.0 {x10E3/uL} (Normal) Range: 1.4-7.0 Basos 0 % (Normal) Eos 1 % (Normal) Monocytes 7 % (Normal) Lymphs 18 % (Normal) Neutrophils 74 % (Normal) Platelets 217 {x10E3/uL} (Normal) Range: 150-379 RDW 12.9 % (Normal) Range: 12.3-15.4 MCHC 34.4 g/dL (Normal) Range: 31.5-35.7 MCH 32.9 pg (Normal) Range: 26.6-33.0 MCV 96 fL (Normal) Range: 79-97 Hematocrit 45.7 % (Normal) Range: 37.5-51.0 Hemoglobin 15.7 g/dL (Normal) Range: 13.0-17.7 RBC 4.77 {x10E6/uL} (Normal) Range: 4.14-5.80 WBC 8.2 {x10E3/uL} (Normal) Range: 3.4-10.8 81-Hid-937875:24 Systemic Lupus Profile A Comments: PATIENT NOT FASTINGPERFORMED BY: [facility]6370 [facility] [id number] Anti-DNA (DS) Ab Qn 16 {IU/mL} Range: 0-9 (Abnormal) Comments: Negative <5 Equivocal 5 - 9 Positive >9 Sjogren's Anti-SS-B <0.2 {AI} (Normal) Range: 0.0-0.9 Sjogren's Anti-SS-A <0.2 {AI} (Normal) Range: 0.0-0.9 Antichromatin Antibodies 0.3 {AI} (Normal) Range: 0.0-0.9 RA Latex Turbid. <10.0 {IU/mL} Range: 0.0-13.9 (Normal) Diaz Antibodies <0.2 {AI} (Normal) Range: 0.0-0.9 ALKYLATION OPERATOR Antibodies <0.2 {AI} (Normal) Range: 0.0-0.9 17-May-2018 Written Authorization WAR (Normal) Comments: PATIENT NOT FASTINGPERFORMED BY: [facility]6370 [facility] [id number] 11:24 Comments: Written Authorization Received.Authorization received from SHALINI VELAZQUEZ LPN [id number] by Yoli Mcginnis 28-Hxe-837142:24 HGB A1C ([id number]) Comments: PATIENT NOT FASTINGPERFORMED BY: [facility]6370 [facility] [id number] Hemoglobin A1c 5.7 % (Abnormal) Range: 4.8-5.6 Comments: . Pre-diabetes: 5.7 - 6.4 Diabetes: >6.4 Glycemic control for adults with diabetes: <7.0 75-Rmw-191185:24 EBV ACUTE PFOF IgG/IgM Comments: PATIENT NOT FASTINGPERFORMED BY: [facility]6370 [facility] [id number] ([id number]) Interpretation: SPRCS (Normal) Comments: EBV Interpretation Chart . Interpretation EBV-IgM EA(D)-IgG VCA-IgG EBNA-IgG . EBV Seronegative - - - - Early Phase + - - - Acute Primary + +or- + - Infection Convalescence/Past - +or- + + Infection Reactivated +or- + + + Infection + Antibody Present - Antibody Absent EBV Nuclear Antigen Ab, IgG 493.0 U/mL (Abnormal) Range: 0.0-17.9 Comments: Negative <18.0 Equivocal 18.0 - 21.9 Positive >21.9 EBV Ab VCA, IgG >600.0 U/mL (Abnormal) Range: 0.0-17.9 Comments: Negative <18.0 Equivocal 18.0 - 21.9 Positive >21.9 EBV Early Antigen Ab, IgG 105.0 U/mL (Abnormal) Range: 0.0-8.9 Comments: Hepatitis A, Hepatitis C and HIV antibodies may cross-reactwith this assay. Negative < 9.0 Equivoc al 9.0 - 10.9 Positive >10.9 EBV Ab VCA, IgM <36.0 U/mL (Normal) Range: 0.0-35.9 Comments: Negative <36.0 Equivocal 36.0 - 43.9 Positive >43.9 97-Pux-949572:24 CMV IGM ANTBDY (66090) Comments: PATIENT NOT FASTINGPERFORMED BY: [facility] [id number] Cytomegalovirus (CMV) Ab, IgM <30.0 AU/mL (Normal) Range: 0.0-29.9 Comments: Negative <30.0 Equivocal 30.0 - 34.9 Positive >34.9 A positive result is generally indicative of acute infection, reactivation or persistent IgM production. 68-Zxy-482411:24 CALCIFIDIOL (91442) VIT D 25 Comments: PATIENT NOT FASTINGPERFORMED BY: [facility]6370 [facility] [id number] Vitamin D, 25-Hydroxy 63.7 ng/mL (Normal) Range: 30.0-100.0 Comments: Vitamin D deficiency has been defined by the [place] of[place] and an Endocrine Society practice guideline as alevel of serum 25-OH vitamin D less than 20 ng/mL (1,2).The Endocrine Society went on to further define vitamin Dinsufficiency as a level between 21 and 29 ng/mL (2).1. IOM ([place] [employer]). 2010. Dietary reference intakes for calcium and D. [place]: The National Academies Press.2. Clifton MF, Robbi MADRID, Ladarius GONZALES, et al. Evaluation, treatment, and prevention of vitamin D deficiency: an Endocrine Society clinical practice guideline. JCEM. 2010; 96(7):1911-30. 07-Qrf-060032:24 VITAMIN B-12 (CYANOCOBALAMIN) Comments: PATIENT NOT FASTINGPERFORMED BY: CB [facility] Tytbsb8620 [address] RoadDublin [place] [id number] (92298) Vitamin B12 476 pg/mL (Normal) Range: 232-1245 73-Vxt-221518:24 TSH (09476) Comments: PATIENT NOT FASTINGPERFORMED BY: CB [facility] Pytygo7906 [address] RoadDublin [place] [id number] TSH 0.509 {uIU/mL} (Normal) Range: 0.450-4.500 09-Bph-818330:24 SED RATE ERYTHROCYTE (93706) Comments: PATIENT NOT FASTINGPERFORMED BY: CB [facility] Vjxeqg1506 [address] RoadDublin [place] [id number] Sedimentation Rate-Westergren 2 mm/h (Normal) Range: 0-30 21-Pma-857693:24 METABOLIC PANEL, COMPREHENSIVE Comments: PATIENT NOT FASTINGPERFORMED BY: CB [facility] Mygdou7585 [address] RoadDublin [place] [id number] (59713) ALT (SGPT) 15 [iU]/L (Normal) Range: 0-44 AST (SGOT) 15 [iU]/L (Normal) Range: 0-40 Alkaline Phosphatase 70 [iU]/L (Normal) Range: 39-117 Bilirubin, Total 1.0 mg/dL (Normal) Range: 0.0-1.2 A/G Ratio 1.6 (Normal) Range: 1.2-2.2 Globulin, Total 2.8 g/dL (Normal) Range: 1.5-4.5 Albumin 4.6 g/dL (Normal) Range: 3.6-4.8 Protein, Total 7.4 g/dL (Normal) Range: 6.0-8.5 Calcium 9.3 mg/dL (Normal) Range: 8.6-10.2 Carbon Dioxide, Total 24 mmol/L (Normal) Range: 20-29 Comments: Please note reference interval change Chloride 99 mmol/L (Normal) Range: 96-106 Potassium 4.5 mmol/L (Normal) Range: 3.5-5.2 Sodium 139 mmol/L (Normal) Range: 134-144 BUN/Creatinine Ratio 15 (Normal) Range: 10-24 eGFR If Africn Am 116 mL/min/1.73 (Normal) eGFR If NonAfricn Am 101 mL/min/1.73 (Normal) Creatinine 0.65 mg/dL (Abnormal) Range: 0.76-1.27 BUN 10 mg/dL (Normal) Range: 8-27 Glucose 101 mg/dL (Abnormal) Range: 65-99 89-Gdp-239824:24 C-REACTIVE PROTEIN (86262) Comments: PATIENT NOT FASTINGPERFORMED BY: Al Detal70 [facility] IncAt[facility]ville [id number] C-Reactive Protein, Quant 5.5 mg/L (Abnormal) Range: 0.0-4.9 82-Sqc-136150:24 CBC (AUTO) (07897) Comments: PATIENT NOT FASTINGPERFORMED BY: Al Detal70 PHHH[facility] IncAt[facility] Health Pineville [id number] Platelets 232 {x10E3/uL} (Normal) Range: 150-379 RDW 13.4 % (Normal) Range: 12.3-15.4 MCHC 34.2 g/dL (Normal) Range: 31.5-35.7 MCH 33.3 pg (Abnormal) Range: 26.6-33.0 MCV 97 fL (Normal) Range: 79-97 Hematocrit 47.9 % (Normal) Range: 37.5-51.0 Hemoglobin 16.4 g/dL (Normal) Range: 13.0-17.7 RBC 4.92 {x10E6/uL} (Normal) Range: 4.14-5.80 WBC 7.0 {x10E3/uL} (Normal) Range: 3.4-10.8 :24 ALISON (ANTINUCLEAR ANTIBODY) Comments: PATIENT NOT FASTINGPERFORMED BY: [facility] [place] [id number] ([id number]) ALISON Direct Positive (Abnormal) :41 MAGNESIUM (85619) Comments: PATIENT NOT FASTINGPERFORMED BY: [facility]6370 [facility] [id number] Magnesium 2.2 mg/dL (Normal) Range: 1.6-2.3 74-Pup-62611:41 TSH (22980) Comments: PATIENT NOT FASTINGPERFORMED BY: [facility]6370 [facility] [id number] TSH 1.070 {uIU/mL} (Normal) Range: 0.450-4.500 06-Quz-93361:41 CBC, Platelets & Auto Diff Comments: PATIENT NOT FASTINGPERFORMED BY: [place] 7081270 [facility] [id number] (87842) Immature Grans (Abs) 0.0 {x10E3/uL} (Normal) Range: 0.0-0.1 Immature Granulocytes 0 % (Normal) Baso (Absolute) 0.0 {x10E3/uL} (Normal) Range: 0.0-0.2 Eos (Absolute) 0.1 {x10E3/uL} (Normal) Range: 0.0-0.4 Monocytes(Absolute) 0.6 {x10E3/uL} (Normal) Range: 0.1-0.9 Lymphs (Absolute) 1.9 {x10E3/uL} (Normal) Range: 0.7-3.1 Neutrophils (Absolute) 5.5 {x10E3/uL} (Normal) Range: 1.4-7.0 Basos 0 % (Normal) Eos 1 % (Normal) Monocytes 8 % (Normal) Lymphs 23 % (Normal) Neutrophils 68 % (Normal) Platelets 222 {x10E3/uL} (Normal) Range: 150-379 RDW 13.1 % (Normal) Range: 12.3-15.4 MCHC 34.9 g/dL (Normal) Range: 31.5-35.7 MCH 33.1 pg (Abnormal) Range: 26.6-33.0 MCV 95 fL (Normal) Range: 79-97 Hematocrit 48.4 % (Normal) Range: 37.5-51.0 Hemoglobin 16.9 g/dL (Normal) Range: 13.0-17.7 RBC 5.10 {x10E6/uL} (Normal) Range: 4.14-5.80 WBC 8.3 {x10E3/uL} (Normal) Range: 3.4-10.8 :41 Metabolic Panel, Comprehensive Comments: PATIENT NOT FASTINGPERFORMED BY: [facility]CoKessler Institute for RehabilitationDrnwzd4352 [facility] [id number] (87624) ALT (SGPT) 16 [iU]/L (Normal) Range: 0-44 AST (SGOT) 14 [iU]/L (Normal) Range: 0-40 Alkaline Phosphatase 73 [iU]/L (Normal) Range: 39-117 Bilirubin, Total 0.8 mg/dL (Normal) Range: 0.0-1.2 A/G Ratio 1.5 (Normal) Range: 1.2-2.2 Globulin, Total 3.0 g/dL (Normal) Range: 1.5-4.5 Albumin 4.4 g/dL (Normal) Range: 3.6-4.8 Protein, Total 7.4 g/dL (Normal) Range: 6.0-8.5 Calcium 9.2 mg/dL (Normal) Range: 8.6-10.2 Carbon Dioxide, Total 23 mmol/L (Normal) Range: 18-29 Chloride 101 mmol/L (Normal) Range: 96-106 Potassium 4.5 mmol/L (Normal) Range: 3.5-5.2 Sodium 139 mmol/L (Normal) Range: 134-144 BUN/Creatinine Ratio 23 (Normal) Range: 10-24 eGFR If Africn Am 111 mL/min/1.73 (Normal) eGFR If NonAfricn Am 96 mL/min/1.73 (Normal) Creatinine 0.73 mg/dL (Abnormal) Range: 0.76-1.27 BUN 17 mg/dL (Normal) Range: 8-27 Glucose 99 mg/dL (Normal) Range: 65-99 83-Kci-041208:20 HgA1C , Office (36992) HgA1C , Office 5.5 % (Normal) Range: 4.6 - 7.1 :31 LIPID PANEL (55618) Comments: PATIENT WAS FASTINGPERFORMED BY: [facility]6370 [facility] [id number] LDL/HDL Ratio 2.1 {ratio_units} (Normal) Range: 0.0-3.6 Comments: LDL/HDL Ratio Men Women 1/2 Avg.Risk 1.0 1.5 Av g.Risk 3.6 3.2 2X Avg.Risk 6.2 5.0 3X Avg.Risk 8.0 6.1 LDL Cholesterol Calc 103 mg/dL (Abnormal) Range: 0-99 VLDL Cholesterol Micah 21 mg/dL (Normal) Range: 5-40 HDL Cholesterol 49 mg/dL (Normal) Triglycerides 107 mg/dL (Normal) Range: 0-149 Cholesterol, Total 173 mg/dL (Normal) Range: 100-199 :31 CALCIFEDIOL (69946) Comments: PATIENT WAS FASTINGPERFORMED BY: ClupediaDr. Dan C. Trigg Memorial HospitalMumerh7942 [facility] [id number] Vitamin D, 25-Hydroxy 54.2 ng/mL (Normal) Range: 30.0-100.0 Comments: Vitamin D deficiency has been defined by the [place] of[place] and an Endocrine Society practice guideline as alevel of serum 25-OH vitamin D less than 20 ng/mL (1,2).The Endocrine Society went on to further define vitamin Dinsufficiency as a level between 21 and 29 ng/mL (2).1. IOM ([place] [employer]). 2010. Dietary reference intakes for calcium and D. [place]: The National Academies Press.2. Clifton MF, Robbi NC, Ladarius GONZALES, et al. Evaluation, treatment, and prevention of vitamin D deficiency: an Endocrine Society clinical practice guideline. JCEM. 2010; 96(7):1911-30. :31 CBC, Platelets & Auto Diff Comments: PATIENT WAS FASTINGPERFORMED BY: [facility]Du[facility]6370 [facility] [id number] ([id number]) Immature Grans (Abs) 0.0 {x10E3/uL} (Normal) Range: 0.0-0.1 Immature Granulocytes 0 % (Normal) Baso (Absolute) 0.0 {x10E3/uL} (Normal) Range: 0.0-0.2 Eos (Absolute) 0.1 {x10E3/uL} (Normal) Range: 0.0-0.4 Monocytes(Absolute) 0.3 {x10E3/uL} (Normal) Range: 0.1-0.9 Lymphs (Absolute) 1.3 {x10E3/uL} (Normal) Range: 0.7-3.1 Neutrophils (Absolute) 4.8 {x10E3/uL} (Normal) Range: 1.4-7.0 Basos 0 % (Normal) Eos 1 % (Normal) Monocytes 5 % (Normal) Lymphs 19 % (Normal) Neutrophils 75 % (Normal) Platelets 193 {x10E3/uL} (Normal) Range: 150-379 RDW 13.2 % (Normal) Range: 12.3-15.4 MCHC 34.7 g/dL (Normal) Range: 31.5-35.7 MCH 33.0 pg (Normal) Range: 26.6-33.0 MCV 95 fL (Normal) Range: 79-97 Hematocrit 47.9 % (Normal) Range: 37.5-51.0 Hemoglobin 16.6 g/dL (Normal) Range: 12.6-17.7 RBC 5.03 {x10E6/uL} (Normal) Range: 4.14-5.80 WBC 6.4 {x10E3/uL} (Normal) Range: 3.4-10.8 :31 TSH (04371) Comments: PATIENT WAS FASTINGPERFORMED BY: LabCoKessler Institute for RehabilitationZvhxdr9832 [facility] [id number] TSH 0.564 {uIU/mL} (Normal) Range: 0.450-4.500 32-Kut-36750:31 Metabolic Panel, Comprehensive Comments: PATIENT WAS FASTINGPERFORMED BY: ClupediaKessler Institute for RehabilitationAsmguw8550 [facility] [id number] (62779) ALT (SGPT) 11 [iU]/L (Normal) Range: 0-44 AST (SGOT) 15 [iU]/L (Normal) Range: 0-40 Alkaline Phosphatase, S 67 [iU]/L (Normal) Range: 39-117 Bilirubin, Total 0.9 mg/dL (Normal) Range: 0.0-1.2 A/G Ratio 1.6 (Normal) Range: 1.2-2.2 Globulin, Total 2.7 g/dL (Normal) Range: 1.5-4.5 Albumin, Serum 4.3 g/dL (Normal) Range: 3.6-4.8 Protein, Total, Serum 7.0 g/dL (Normal) Range: 6.0-8.5 Calcium, Serum 9.1 mg/dL (Normal) Range: 8.6-10.2 Carbon Dioxide, Total 21 mmol/L (Normal) Range: 18-29 Chloride, Serum 101 mmol/L (Normal) Range: 96-106 Potassium, Serum 4.1 mmol/L (Normal) Range: 3.5-5.2 Sodium, Serum 142 mmol/L (Normal) Range: 134-144 BUN/Creatinine Ratio 16 (Normal) Range: 10-24 eGFR If Africn Am 108 mL/min/1.73 (Normal) eGFR If NonAfricn Am 94 mL/min/1.73 (Normal) Creatinine, Serum 0.79 mg/dL (Normal) Range: 0.76-1.27 BUN 13 mg/dL (Normal) Range: 8-27 Glucose, Serum 110 mg/dL (Abnormal) Range: 65-99 68-Hal-724137:03 CALCIFEDIOL (80181) Comments: today; PATIENT NOT FASTINGPERFORMED BY: LabCoKessler Institute for RehabilitationEkzgss4669 [facility] [id number] Vitamin D, 25-Hydroxy 51.0 ng/mL (Normal) Range: 30.0-100.0 Comments: Vitamin D deficiency has been defined by the [place] of[place] and an Endocrine Society practice guideline as alevel of serum 25-OH vitamin D less than 20 ng/mL (1,2).The Endocrine Society went on to further define vitamin Dinsufficiency as a level between 21 and 29 ng/mL (2).1. IOM ([place] [employer]). 2010. Dietary reference intakes for calcium and D. [place]: The National Academies Press.2. Clifton MF, Robbi NC, Ladarius GONZALES, et al. Evaluation, treatment, and prevention of vitamin D deficiency: an Endocrine Society clinical practice guideline. JCEM. 2010; 96(7):1911-30. 49-Vef-227755:03 VITAMIN B12 AND FOLATES Comments: today; PATIENT NOT FASTINGPERFORMED BY: [facility]Du[facility]6370 [facility] [id number] (56509) Folate (Folic Acid), Serum 10.2 ng/mL (Normal) Comments: A serum folate concentration of less than 3.1 ng/mL isconsidered to represent clinical deficiency. Vitamin B12 1184 pg/mL (Abnormal) Range: 211-946 79-Igg-216036:03 MAGNESIUM (45215) Comments: today; PATIENT NOT FASTINGPERFORMED BY: [facility]Du[facility]6370 [facility] [id number] Magnesium, Serum 2.1 mg/dL (Normal) Range: 1.6-2.3 2-Dde-280229:09 T4, FREE (THYROXINE) (23211) Comments: PATIENT NOT FASTINGPERFORMED BY: [facility]6370 [facility] [id number] T4,Free(Direct) 1.03 ng/dL (Normal) Range: 0.82-1.77 4-Ztx-074849:09 T3, FREE (TRIDOTHYRONINE) (74990) Comments: PATIENT NOT FASTINGPERFORMED BY: [facility]6370 [facility] [id number] Triiodothyronine,Free,Serum 3.7 pg/mL (Normal) Range: 2.0-4.4 3-Fwn-847730:09 TSH (THYROID STIMULATING Comments: PATIENT NOT FASTINGPERFORMED BY: [facility]6370 [facility] [id number] HORMONE) (38474) TSH 0.464 {uIU/mL} (Normal) Range: 0.450-4.500 03-Opc-972196:47 CBC, Platelets & Auto Diff Comments: PATIENT NOT FASTINGPERFORMED BY: [facility]Du[facility]6370 [facility] [id number] (58078) Immature Grans (Abs) 0.0 {x10E3/uL} (Normal) Range: 0.0-0.1 Immature Granulocytes 0 % (Normal) Baso (Absolute) 0.0 {x10E3/uL} (Normal) Range: 0.0-0.2 Eos (Absolute) 0.1 {x10E3/uL} (Normal) Range: 0.0-0.4 Monocytes(Absolute) 0.4 {x10E3/uL} (Normal) Range: 0.1-0.9 Lymphs (Absolute) 1.5 {x10E3/uL} (Normal) Range: 0.7-3.1 Neutrophils (Absolute) 4.8 {x10E3/uL} (Normal) Range: 1.4-7.0 Basos 0 % (Normal) Eos 1 % (Normal) Monocytes 6 % (Normal) Lymphs 22 % (Normal) Neutrophils 71 % (Normal) Platelets 200 {x10E3/uL} (Normal) Range: 150-379 RDW 13.5 % (Normal) Range: 12.3-15.4 MCHC 34.2 g/dL (Normal) Range: 31.5-35.7 MCH 32.0 pg (Normal) Range: 26.6-33.0 MCV 94 fL (Normal) Range: 79-97 Hematocrit 45.6 % (Normal) Range: 37.5-51.0 Hemoglobin 15.6 g/dL (Normal) Range: 12.6-17.7 RBC 4.87 {x10E6/uL} (Normal) Range: 4.14-5.80 WBC 6.9 {x10E3/uL} (Normal) Range: 3.4-10.8 45-Feu-080193:47 CPK TOTAL & ISOENZYMES (34619) Comments: PATIENT NOT FASTINGPERFORMED BY: Al Detal70 [facility] [id number] CK-BB 0 % (Normal) CK-MB 0 % (Normal) Range: 0-3 Macro Type 1 0 % (Normal) CK-MM 100 % (Normal) Range: 97-100 Macro Type 2 0 % (Normal) Creatine Kinase,Total,Serum 182 U/L (Normal) Range: 24-204 :47 CALCIFEDIOL (78306) Comments: PATIENT NOT FASTINGPERFORMED BY: Al Detal70 [facility]Maria [facility] [id number] Vitamin D, 25-Hydroxy 45.7 ng/mL (Normal) Range: 30.0-100.0 Comments: Vitamin D deficiency has been defined by the [place] of[place] and an Endocrine Society practice guideline as alevel of serum 25-OH vitamin D less than 20 ng/mL (1,2).The Endocrine Society went on to further define vitamin Dinsufficiency as a level between 21 and 29 ng/mL (2).1. IOM ([place] [employer]). 2010. Dietary reference intakes for calcium and D. [place]: The National Academies Press.2. Clifton MF, Robbi MADRID, Ladarius GONZALES, et al. Evaluation, treatment, and prevention of vitamin D deficiency: an Endocrine Society clinical practice guideline. JCEM. 2010; 96(7):1911-30. :47 TSH (THYROID STIMULATING Comments: PATIENT NOT FASTINGPERFORMED BY: [facility] Piuhlz2470 ZaelabDublin [place] [id number] HORMONE) (27503) TSH 0.367 {uIU/mL} (Abnormal) Range: 0.450-4.500 :42 PSA (Medicare - G0103) Comments: today; PATIENT NOT FASTINGPERFORMED BY: CB [facility] Hcnwwj7614 PHHHOTO Incblin [place] [id number]; OV 01/25/17 (63093) Prostate Specific Ag, 0.6 ng/mL (Normal) Range: 0.0-4.0 Serum Comments: Mónica ECLIA methodology. .According to the [place] [employer], Serum PSA shoulddecrease and remain at undetectable levels after radicalprostatectomy. The AUA defines biochemical recurrence as an initialPSA value 0.2 ng/mL or greater followed by a subsequent confirmatoryPSA value 0.2 ng/mL or greater.Values obtained with d ifferent assay methods or kits cannot be usedinterchangeably. Results cannot be interpreted as absolute evidenceof the presence or absence of malignant disease. :10 CBC, Platelets & Auto Diff Comments: PATIENT WAS FASTINGPERFORMED BY: [facility] LabPropeller Healthrp Hxygmg6737 [address] Netmagic SolutionsDublin [place] [id number] (25752) Immature Grans (Abs) 0.0 {x10E3/uL} (Normal) Range: 0.0-0.1 Immature Granulocytes 0 % (Normal) Baso (Absolute) 0.0 {x10E3/uL} (Normal) Range: 0.0-0.2 Eos (Absolute) 0.1 {x10E3/uL} (Normal) Range: 0.0-0.4 Monocytes(Absolute) 0.5 {x10E3/uL} (Normal) Range: 0.1-0.9 Lymphs (Absolute) 2.0 {x10E3/uL} (Normal) Range: 0.7-3.1 Neutrophils (Absolute) 4.6 {x10E3/uL} (Normal) Range: 1.4-7.0 Basos 1 % (Normal) Eos 1 % (Normal) Monocytes 7 % (Normal) Lymphs 27 % (Normal) Neutrophils 64 % (Normal) Platelets 204 {x10E3/uL} (Normal) Range: 150-379 RDW 13.7 % (Normal) Range: 12.3-15.4 MCHC 34.4 g/dL (Normal) Range: 31.5-35.7 MCH 32.0 pg (Normal) Range: 26.6-33.0 MCV 93 fL (Normal) Range: 79-97 Hematocrit 45.1 % (Normal) Range: 37.5-51.0 Hemoglobin 15.5 g/dL (Normal) Range: 12.6-17.7 RBC 4.84 {x10E6/uL} (Normal) Range: 4.14-5.80 WBC 7.2 {x10E3/uL} (Normal) Range: 3.4-10.8 54-Nbv-093957:10 TSH (92256) Comments: PATIENT WAS FASTINGPERFORMED BY: [facility] Nokwpx9581 [facility] [id number] TSH 0.537 {uIU/mL} (Normal) Range: 0.450-4.500 11-Rsb-921592:10 Metabolic Panel, Comprehensive Comments: PATIENT WAS FASTINGPERFORMED BY: [facility] Vcyuse6864 [facility] [id number]; ov 01/21 (33712) ALT (SGPT) 16 [iU]/L (Normal) Range: 0-44 AST (SGOT) 17 [iU]/L (Normal) Range: 0-40 Alkaline Phosphatase, S 66 [iU]/L (Normal) Range: 39-117 Bilirubin, Total 0.8 mg/dL (Normal) Range: 0.0-1.2 A/G Ratio 1.5 (Normal) Range: 1.1-2.5 Comments: Effective February 07, 2017 the reference interval for A/G Ratio will be changing to: Age Male Female 0 - 7 d ays 1.1 - 2.3 1.1 - 2.3 8 - 30 days 1.2 - 2.8 1.2 - 2.8 1 - 6 months 1.3 - 3.6 1.3 - 3.6 7 months - 5 years 1.5 - 2.6 1.5 - 2.6 > 5 years 1.2 - 2.2 1.2 - 2.2 Globulin, Total 2.8 g/dL (Normal) Range: 1.5-4.5 Albumin, Serum 4.3 g/dL (Normal) Range: 3.6-4.8 Protein, Total, Serum 7.1 g/dL (Normal) Range: 6.0-8.5 Calcium, Serum 8.9 mg/dL (Normal) Range: 8.6-10.2 Carbon Dioxide, Total 23 mmol/L (Normal) Range: 18-29 Chloride, Serum 100 mmol/L (Normal) Range: 96-106 Potassium, Serum 4.4 mmol/L (Normal) Range: 3.5-5.2 Sodium, Serum 141 mmol/L (Normal) Range: 134-144 BUN/Creatinine Ratio 19 (Normal) Range: 10-22 eGFR If Africn Am 112 mL/min/1.73 (Normal) eGFR If NonAfricn Am 97 mL/min/1.73 (Normal) Creatinine, Serum 0.73 mg/dL (Abnormal) Range: 0.76-1.27 BUN 14 mg/dL (Normal) Range: 8-27 Glucose, Serum 83 mg/dL (Normal) Range: 65-99 32-Gkl-163822:10 Lipid Panel (62268) Comments: PATIENT WAS FASTINGPERFORMED BY: [facility] Zjkjbw5574 [facility] [id number] LDL/HDL Ratio 2.0 {ratio_units} (Normal) Range: 0.0-3.6 Comments: LDL/HDL Ratio Men Women 1/2 Avg.Risk 1.0 1.5 Av g.Risk 3.6 3.2 2X Avg.Risk 6.2 5.0 3X Avg.Risk 8.0 6.1 LDL Cholesterol Calc 106 mg/dL (Abnormal) Range: 0-99 VLDL Cholesterol Micah 18 mg/dL (Normal) Range: 5-40 HDL Cholesterol 52 mg/dL (Normal) Triglycerides 88 mg/dL (Normal) Range: 0-149 Cholesterol, Total 176 mg/dL (Normal) Range: 100-199 [id number]:10 CALCIFEDIOL (18255) Comments: PATIENT WAS FASTINGPERFORMED BY: [id number] [id number] Vitamin D, 25-Hydroxy 42.8 ng/mL (Normal) Range: 30.0-100.0 Comments: Vitamin D deficiency has been defined by the [place] [facility] and an Endocrine Society practice guideline as alevel of serum 25-OH vitamin D less than 20 ng/mL (1,2).The Endocrine Society went on to further define vitamin Dinsufficiency as a level between 21 and 29 ng/mL (2).1. IOM ([place] [employer]). 2010. Dietary reference intakes for calcium and D. [place]: The National Academies Press.2. Clifton MF, Robbi MADRID, Ladarius GONZALES, et al. Evaluation, treatment, and prevention of vitamin D deficiency: an Endocrine Society clinical practice guideline. JCEM. 2010; 96(7):1911-30. [id number] Basic Metabolic Profile (BMP) Comments: 'TROP' Serial specimen #1, #2, #3, or #4: [address] [place] [address] [id number] [place], [place], [id number] GAP 3 (Abnormal) Range: 5-15 CO2 26.0 mmol/L (Normal) Range: 21.0-32.0 CL 110 mmol/L (Abnormal) Range: 98-107 K 4.0 mmol/L (Normal) Range: 3.5-5.1 NA 139 mmol/L (Normal) Range: 136-145 CA 8.4 mg/dL (Abnormal) Range: 8.5-10.1 BUN/CRE 18.7 {RATIO} (Normal) Range: 10-20 Estimated CRCL 98.05 ml/min (Normal) EST GFR - AA 124 mL/min (Normal) Comments: GFR Calc EST GFR 102 mL/min (Normal) Comments: Non- GFR Calc CREAT,SERUM 0.80 mg/dL (Normal) Range: 0.70-1.30 Comments: The validity of the calculated GFR AND GFRAA in patients over70 years has not been determined. Clinical correlation isessential. BUN 15 mg/dL (Normal) Range: 7-18 GLU 118 mg/dL (Abnormal) Range: 70-110 Comments: Fasting Glucose result from 110 to <126 mg/dLsuggests IMPAIRED HOMEOSTASIS per A.D.A. criteria. [id number]:50 CBC W/Diff, Automated Comments: [facility] [id number] [place], [place], [id number] ; another doc Absolute Lymph 1.21 {X10_3/ul} (Normal) Range: 0.83-4.51 Absolute Neut 5.1 {X10_3/uL} (Normal) Range: 2.0-7.7 IM GRAN % 0.300 % (Normal) Range: 0.0-0.9 Comments: IG% - Immature Granulocytes (promyelocytes, myelocytes andmetamyelocytes) > 1% indicates that a LEFT SHIFT is Present. BASO% 0.3 % (Normal) Range: 0-1 EO% 1.0 % (Normal) Range: 0-5 MONO% 5.6 % (Normal) Range: 0-10 LY% 17.7 % (Abnormal) Range: 19-41 NEUT% 75.1 % (Abnormal) Range: 47-70 MPV 10.2 fL (Normal) Range: 6.2-12.0 PLT 184 K/mm3 (Normal) Range: 150-450 RDW SD 43.0 fL (Normal) Range: 35.1-43.9 RDW CV 12.8 % (Normal) Range: 11.6-14.6 MCHC 34.5 {g/gl} (Normal) Range: 32-36 MCH 31.9 pg (Normal) Range: 27.0-32.0 MCV 92.2 fL (Normal) Range: 80-94 HCT 44.0 % (Normal) Range: 40-54 HGB 15.2 g/dL (Normal) Range: 13.0-16.5 RBC 4.77 {M/mm3} (Normal) Range: 4.6-6.2 WBC 6.8 K/mm3 (Normal) Range: 4.4-11.0 :50 Troponin-I Comments: 'TROP' Serial specimen #1, #2, #3, or #4: [address] [place] [address] [address] [place], [address] TROPONIN-I < 0.02 ng/mL (Normal) Comments: TROPONIN-I EXPECTED VALUES <0.05 NEGATIVE 0.06 - 0.59 AT RISK OF RI > OR = 0.60 SUGGEST RI 4-Ztg-703288:40 TESTOSTERONE FREE (32762) Comments: PATIENT NOT FASTINGPERFORMED BY: zEconomy [address] [id number] Free Testosterone(Direct) 5.8 pg/mL (Abnormal) Range: 6.6-18.1 65-Iuj-605092:40 TSH (THYROID STIMULATING Comments: PATIENT NOT FASTINGPERFORMED BY: [employer]ord [facility] [id number] BY: Clupedia[address] [id number] HORMONE) (18728) TSH 0.600 {uIU/mL} (Normal) Range: 0.450-4.500 18-Aqq-411315:40 TESTOSTERONE ,TOT/FREE Comments: PATIENT NOT FASTINGPERFORMED BY: Al Detal[address] [place] [address] [id number] BY: Clupedia[address] [id number] (30798) Free Testosterone(Direct) 5.2 pg/mL (Abnormal) Range: 6.6-18.1 Comment: TESTM (Normal) Comments: Adult male reference interval is based on a population of lean malesup to 40 years old. Testosterone, Serum 275 ng/dL (Abnormal) Range: 348-1197 :40 PT (PROTHROMBIN TIME) Comments: PATIENT NOT FASTINGPERFORMED BY: [facility] HospitalPropeller HealthMonica Ville [id number] [facility] [id number] BY: [address] [id number] (70362) Prothrombin Time 10.4 {sec} (Normal) Range: 9.1-12.0 INR 1.0 (Normal) Range: 0.8-1.2 Comments: Reference interval is for non-anticoagulated patients. . Suggested INR therapeutic range for Vitamin K anta gonist therapy: Standard Dose (moderate intensity therapeutic range): 2.0 - 3.0 Higher intensity therapeutic range 2.5 - 3.5 :40 CBC, PLATELETS & AUT DIFF Comments: PATIENT NOT FASTINGPERFORMED BY: ClupediaKessler Institute for RehabilitationBtpjoi7387 [facility] [id number] BY: ClupediaDenise Ville 008527 [facility] [id number] (56473) Immature Grans (Abs) 0.0 {x10E3/uL} (Normal) Range: 0.0-0.1 Immature Granulocytes 0 % (Normal) Baso (Absolute) 0.0 {x10E3/uL} (Normal) Range: 0.0-0.2 Eos (Absolute) 0.1 {x10E3/uL} (Normal) Range: 0.0-0.4 Monocytes(Absolute) 0.5 {x10E3/uL} (Normal) Range: 0.1-0.9 Lymphs (Absolute) 1.9 {x10E3/uL} (Normal) Range: 0.7-3.1 Neutrophils (Absolute) 5.3 {x10E3/uL} (Normal) Range: 1.4-7.0 Basos 0 % (Normal) Eos 1 % (Normal) Monocytes 7 % (Normal) Lymphs 24 % (Normal) Neutrophils 68 % (Normal) Platelets 204 {x10E3/uL} (Normal) Range: 150-379 RDW 12.7 % (Normal) Range: 12.3-15.4 MCHC 35.0 g/dL (Normal) Range: 31.5-35.7 MCH 31.7 pg (Normal) Range: 26.6-33.0 MCV 91 fL (Normal) Range: 79-97 Hematocrit 43.1 % (Normal) Range: 37.5-51.0 Hemoglobin 15.1 g/dL (Normal) Range: 12.6-17.7 RBC 4.76 {x10E6/uL} (Normal) Range: 4.14-5.80 WBC 7.8 {x10E3/uL} (Normal) Range: 3.4-10.8 :40 Metabolic Panel, Basic Comments: PATIENT NOT FASTINGPERFORMED BY: ClupediaMonica Ville 2646970 [facility] [id number] BY: Power Efficiency[address] [id number] (03588) Calcium, Serum 8.9 mg/dL (Normal) Range: 8.6-10.2 Carbon Dioxide, Total 20 mmol/L (Normal) Range: 18-29 Chloride, Serum 102 mmol/L (Normal) Range: 97-106 Comments: Please note reference interval change Potassium, Serum 4.5 mmol/L (Normal) Range: 3.5-5.2 Comments: Please note reference interval change Sodium, Serum 142 mmol/L (Normal) Range: 136-144 Comments: Please note reference interval change BUN/Creatinine Ratio 19 (Normal) Range: 10-22 eGFR If Africn Am 110 mL/min/1.73 (Normal) eGFR If NonAfricn Am 95 mL/min/1.73 (Normal) Creatinine, Serum 0.77 mg/dL (Normal) Range: 0.76-1.27 BUN 15 mg/dL (Normal) Range: 8-27 Glucose, Serum 88 mg/dL (Normal) Range: 65-99 :46 Metabolic Panel, Comments: PATIENT NOT FASTINGPERFORMED BY: ClupediaMonica Ville 2646970 [facility] [id number] Information: [id number] Comprehensive (68266) ALT (SGPT) 11 [iU]/L (Normal) Range: 0-44 AST (SGOT) 12 [iU]/L (Normal) Range: 0-40 Alkaline Phosphatase, S 59 [iU]/L (Normal) Range: 39-117 Bilirubin, Total 0.7 mg/dL (Normal) Range: 0.0-1.2 A/G Ratio 1.7 (Normal) Range: 1.1-2.5 Globulin, Total 2.6 g/dL (Normal) Range: 1.5-4.5 Albumin, Serum 4.3 g/dL (Normal) Range: 3.6-4.8 Protein, Total, Serum 6.9 g/dL (Normal) Range: 6.0-8.5 Calcium, Serum 8.7 mg/dL (Normal) Range: 8.6-10.2 Carbon Dioxide, Total 17 mmol/L (Abnormal) Range: 18-29 Chloride, Serum 102 mmol/L (Normal) Range: 97-108 Potassium, Serum 4.3 mmol/L (Normal) Range: 3.5-5.2 Sodium, Serum 139 mmol/L (Normal) Range: 134-144 BUN/Creatinine Ratio 23 (Abnormal) Range: 10-22 eGFR If Africn Am 110 mL/min/1.73 (Normal) eGFR If NonAfricn Am 95 mL/min/1.73 (Normal) Creatinine, Serum 0.77 mg/dL (Normal) Range: 0.76-1.27 BUN 18 mg/dL (Normal) Range: 8-27 Glucose, Serum 99 mg/dL (Normal) Range: 65-99 :46 TSH (THYROID STIMULATING Comments: PATIENT NOT FASTINGPERFORMED BY: Yovia AneumedAtrium Health Pineville [id number] HORMONE) (51988) TSH 0.483 {uIU/mL} (Normal) Range: 0.450-4.500 :46 MAGNESIUM (72524) Comments: PATIENT NOT FASTINGPERFORMED BY: Yovia Gyflpi8229 [address] [facility] CenterAgeCheqAtrium Health Pineville [id number] Magnesium, Serum 1.9 mg/dL (Normal) Range: 1.6-2.3 0-Cvj-685369:53 MICROALBUMIN: CREATININE RATIO Comments: PATIENT NOT FASTINGPERFORMED BY: Yovia [employer] [facility] [id number] (29828) AND (40729) Microalb/Creat Ratio 3.2 {mg/g_creat} (Normal) Range: 0.0-30.0 Microalbumin, Urine 4.2 ug/mL (Normal) Range: 0.0-17.0 Creatinine, Urine 130.8 mg/dL (Normal) Range: 22.0-328.0 :53 URINALYSIS (87371) Comments: PATIENT NOT FASTINGPERFORMED BY: GoInstantMaria [facility] [id number] Information: [id number] Microscopic Examination MICNIP (Normal) Comments: Microscopic not indicated and not performed. Nitrite, Urine Negative (Normal) Urobilinogen,Semi-Qn 1.0 mg/dL (Normal) Range: 0.2-1.0 Bilirubin Negative (Normal) Occult Blood Negative (Normal) Ketones Negative (Normal) Glucose Negative (Normal) Protein Negative (Normal) WBC Esterase Negative (Normal) Appearance Clear (Normal) Urine-Color Yellow (Normal) pH 7.0 (Normal) Range: 5.0-7.5 Specific [place] 1.027 (Normal) Range: 1.005-1.030 :56 PSA (PROSTATE SPECIFIC Comments: PATIENT WAS FASTINGPERFORMED BY: HealthifyAtrium Health Pineville [id number] ANTIGEN) (V76.44) Prostate Specific Ag, 0.6 ng/mL (Normal) Range: 0.0-4.0 Serum Comments: RealtyAPX ECLIA methodology. .According to the [place] [employer], Serum PSA shoulddecrease and remain at undetectable levels after radicalprostatectomy. The AUA defines biochemical recurrence as an initialPSA value 0.2 ng/mL or greater followed by a subsequent confirmatoryPSA value 0.2 ng/mL or greater.Values obtained with d ifferent assay methods or kits cannot be usedinterchangeably. Results cannot be interpreted as absolute evidenceof the presence or absence of malignant disease. :56 METABOLIC PANEL, COMPREHENSIVE Comments: PATIENT WAS FASTINGPERFORMED BY: Al Detal70 ZaelabMaria [facility]ham Health [id number] (37728) ALT (SGPT) 12 [iU]/L (Normal) Range: 0-44 AST (SGOT) 11 [iU]/L (Normal) Range: 0-40 Alkaline Phosphatase, S 59 [iU]/L (Normal) Range: 39-117 Bilirubin, Total 0.8 mg/dL (Normal) Range: 0.0-1.2 A/G Ratio 1.7 (Normal) Range: 1.1-2.5 Globulin, Total 2.5 g/dL (Normal) Range: 1.5-4.5 Albumin, Serum 4.3 g/dL (Normal) Range: 3.6-4.8 Protein, Total, Serum 6.8 g/dL (Normal) Range: 6.0-8.5 Calcium, Serum 9.0 mg/dL (Normal) Range: 8.6-10.2 Carbon Dioxide, Total 22 mmol/L (Normal) Range: 18-29 Chloride, Serum 104 mmol/L (Normal) Range: 97-108 Potassium, Serum 4.4 mmol/L (Normal) Range: 3.5-5.2 Sodium, Serum 141 mmol/L (Normal) Range: 134-144 BUN/Creatinine Ratio 23 (Abnormal) Range: 10-22 eGFR If Africn Am 112 mL/min/1.73 (Normal) eGFR If NonAfricn Am 97 mL/min/1.73 (Normal) Creatinine, Serum 0.75 mg/dL (Abnormal) Range: 0.76-1.27 BUN 17 mg/dL (Normal) Range: 8-27 Glucose, Serum 106 mg/dL (Abnormal) Range: 65-99 01-Dec-20158:56 LIPID PANEL (41818) Comments: PATIENT WAS FASTINGPERFORMED BY: [facility]6370 [facility] [id number] LDL/HDL Ratio 2.4 {ratio_units} (Normal) Range: 0.0-3.6 Comments: LDL/HDL Ratio Men Women 1/2 Avg.Risk 1.0 1.5 Av g.Risk 3.6 3.2 2X Avg.Risk 6.2 5.0 3X Avg.Risk 8.0 6.1 LDL Cholesterol Calc 94 mg/dL (Normal) Range: 0-99 VLDL Cholesterol Micah 16 mg/dL (Normal) Range: 5-40 HDL Cholesterol 40 mg/dL (Normal) Comments: According to ATP-III Guidelines, HDL-C >59 mg/dL is considered anegative risk factor for CHD. Triglycerides 82 mg/dL (Normal) Range: 0-149 Cholesterol, Total 150 mg/dL (Normal) Range: 100-199 :56 CBC with auto diff Comments: PATIENT WAS FASTINGPERFORMED BY: TapBookAuthorlin6370 [facility] [id number] Information: [id number] (32925) Immature Grans (Abs) 0.0 {x10E3/uL} (Normal) Range: 0.0-0.1 Immature Granulocytes 0 % (Normal) Baso (Absolute) 0.0 {x10E3/uL} (Normal) Range: 0.0-0.2 Eos (Absolute) 0.1 {x10E3/uL} (Normal) Range: 0.0-0.4 Monocytes(Absolute) 0.4 {x10E3/uL} (Normal) Range: 0.1-0.9 Lymphs (Absolute) 1.4 {x10E3/uL} (Normal) Range: 0.7-3.1 Neutrophils (Absolute) 5.4 {x10E3/uL} (Normal) Range: 1.4-7.0 Basos 0 % (Normal) Eos 1 % (Normal) Monocytes 5 % (Normal) Lymphs 19 % (Normal) Neutrophils 75 % (Normal) Platelets 205 {x10E3/uL} (Normal) Range: 150-379 RDW 13.0 % (Normal) Range: 12.3-15.4 MCHC 34.5 g/dL (Normal) Range: 31.5-35.7 MCH 31.5 pg (Normal) Range: 26.6-33.0 MCV 91 fL (Normal) Range: 79-97 Hematocrit 44.4 % (Normal) Range: 37.5-51.0 Hemoglobin 15.3 g/dL (Normal) Range: 12.6-17.7 RBC 4.86 {x10E6/uL} (Normal) Range: 4.14-5.80 WBC 7.3 {x10E3/uL} (Normal) Range: 3.4-10.8 :56 CALCIFIDIOL (97039) VIT D 25 Comments: PATIENT WAS FASTINGPERFORMED BY: [facility] Perry RoadDublin [place] [id number] Vitamin D, 25-Hydroxy 45.0 ng/mL (Normal) Range: 30.0-100.0 Comments: Vitamin D deficiency has been defined by the [place] of[place] and an Endocrine Society practice guideline as alevel of serum 25-OH vitamin D less than 20 ng/mL (1,2).The Endocrine Society went on to further define vitamin Dinsufficiency as a level between 21 and 29 ng/mL (2).1. IOM ([place] [employer]). 2010. Dietary reference intakes for calcium and D. [place]: The National Mess[employer]ind Press.2. Robbi Morales, Ladarius GONZALES, et al. Evaluation, treatment, and prevention of vitamin D deficiency: an Endocrine Society clinical practice guideline. JCEM. 2010; 96(7):1911-30. -:20 HgA1C , Office (10947) HgA1C , Office 5.9 % (Normal) Range: 4.6 - 7.1 53-Qjh-635993:36 Vitamin B-12 (cyanocobalamin) Comments: PATIENT NOT FASTINGPERFORMED BY: [facility] Etbxis[address] [facility]bl[facility] [place] [id number] (35792) Vitamin B12 1444 pg/mL (Abnormal) Range: 211-946 :36 CALCIFIDIOL (43435) VIT D 25 Comments: PATIENT NOT FASTINGPERFORMED BY: [facility] Pmwyij4302 Perry RoadDublin [place] [id number] Vitamin D, 25-Hydroxy 32.0 ng/mL (Normal) Range: 30.0-100.0 Comments: Vitamin D deficiency has been defined by the [place] of[place]icine and an Endocrine Society practice guideline as alevel of serum 25-OH vitamin D less than 20 ng/mL (1,2).The Endocrine Society went on to further define vitamin Dinsufficiency as a level between 21 and 29 ng/mL (2).1. IOM ([place] of [employer]). 2010. Dietary reference intakes for calcium and D. [place]: The National Mess[employer] Press.2. Robbi Morales, Ladarius GONZALES, et al. Evaluation, treatment, and prevention of vitamin D deficiency: an Endocrine Society clinical practice guideline. JCEM. 2010; 96(7):1911-30. :36 TSH (72221) Comments: PATIENT NOT FASTINGPERFORMED BY: LabCoKessler Institute for RehabilitationIkoygu1381 [facility] [id number] Information: [id number] TSH 0.575 {uIU/mL} (Normal) Range: 0.450-4.500 :51 CBC With Differential/Platelet Comments: PATIENT WAS FASTINGPERFORMED BY: LabCoKessler Institute for RehabilitationYhpftj7486 [facility] [id number] Information: [id number] Immature Grans (Abs) 0.0 {x10E3/uL} (Normal) Range: 0.0-0.1 Immature Granulocytes 0 % (Normal) Baso (Absolute) 0.0 {x10E3/uL} (Normal) Range: 0.0-0.2 Eos (Absolute) 0.1 {x10E3/uL} (Normal) Range: 0.0-0.4 Monocytes(Absolute) 0.4 {x10E3/uL} (Normal) Range: 0.1-0.9 Lymphs (Absolute) 1.7 {x10E3/uL} (Normal) Range: 0.7-3.1 Neutrophils (Absolute) 5.1 {x10E3/uL} (Normal) Range: 1.4-7.0 Basos 0 % (Normal) Eos 1 % (Normal) Monocytes 5 % (Normal) Lymphs 23 % (Normal) Neutrophils 71 % (Normal) Platelets 199 {x10E3/uL} (Normal) Range: 150-379 RDW 13.5 % (Normal) Range: 12.3-15.4 MCHC 34.6 g/dL (Normal) Range: 31.5-35.7 MCH 31.1 pg (Normal) Range: 26.6-33.0 MCV 90 fL (Normal) Range: 79-97 Hematocrit 42.5 % (Normal) Range: 37.5-51.0 Hemoglobin 14.7 g/dL (Normal) Range: 12.6-17.7 RBC 4.72 {x10E6/uL} (Normal) Range: 4.14-5.80 WBC 7.3 {x10E3/uL} (Normal) Range: 3.4-10.8 :51 Comp. Metabolic Panel (14) Comments: PATIENT WAS FASTINGPERFORMED BY: Al Detal70 [facility] [id number] ALT (SGPT) 15 [iU]/L (Normal) Range: 0-44 AST (SGOT) 15 [iU]/L (Normal) Range: 0-40 Alkaline Phosphatase, S 63 [iU]/L (Normal) Range: 39-117 Bilirubin, Total 0.8 mg/dL (Normal) Range: 0.0-1.2 A/G Ratio 1.7 (Normal) Range: 1.1-2.5 Globulin, Total 2.7 g/dL (Normal) Range: 1.5-4.5 Albumin, Serum 4.5 g/dL (Normal) Range: 3.6-4.8 Protein, Total, Serum 7.2 g/dL (Normal) Range: 6.0-8.5 Calcium, Serum 9.5 mg/dL (Normal) Range: 8.6-10.2 Carbon Dioxide, Total 22 mmol/L (Normal) Range: 18-29 Chloride, Serum 101 mmol/L (Normal) Range: 97-108 Potassium, Serum 4.4 mmol/L (Normal) Range: 3.5-5.2 Sodium, Serum 139 mmol/L (Normal) Range: 134-144 BUN/Creatinine Ratio 25 (Abnormal) Range: 10-22 eGFR If Africn Am 113 mL/min/1.73 (Normal) eGFR If NonAfricn Am 98 mL/min/1.73 (Normal) Creatinine, Serum 0.73 mg/dL (Abnormal) Range: 0.76-1.27 BUN 18 mg/dL (Normal) Range: 8-27 Glucose, Serum 77 mg/dL (Normal) Range: 65-99 :51 Lipid Panel With LDL/HDL Comments: PATIENT WAS FASTINGPERFORMED BY: [employer]6370 [facility] [id number] Ratio LDL/HDL Ratio 2.1 {ratio_units} Range: 0.0-3.6 (Normal) Comments: LDL/HDL Ratio Men Women 1/2 Avg.Risk 1.0 1.5 Av g.Risk 3.6 3.2 2X Avg.Risk 6.2 5.0 3X Avg.Risk 8.0 6.1 LDL Cholesterol Calc 89 mg/dL (Normal) Range: 0-99 VLDL Cholesterol Micah 17 mg/dL (Normal) Range: 5-40 HDL Cholesterol 42 mg/dL (Normal) Comments: According to ATP-III Guidelines, HDL-C >59 mg/dL is considered anegative risk factor for CHD. Triglycerides 83 mg/dL (Normal) Range: 0-149 Cholesterol, Total 148 mg/dL (Normal) Range: 100-199 Vitamin B12 479 pg/mL (Normal) Comments: PATIENT WAS FASTINGPERFORMED BY: ShoppinPalBaptist Health Paducah [id number] 1:51 Range: 211-946 Vitamin D, 25-Hydroxy 40.7 ng/mL (Normal) Comments: PATIENT WAS FASTINGPERFORMED BY: HealthifyAtrium Health Pineville [id number] 1:51 Range: 30.0-100.0 Comments: Vitamin D deficiency has been defined by the [place] ofDayton Children'S Hospitalcine and an Endocrine Society practice guideline as alevel of serum 25-OH vitamin D less than 20 ng/mL (1,2).The Endocrine Society went on to further define vitamin Dinsufficiency as a level between 21 and 29 ng/mL (2).1. IOM ([place] of [employer]). 2010. Dietary reference intakes for calcium and D. [place]: The National Academies Press.2. Clifton MF, Robbi MADRID, Ladarius GONZALES, et al. Evaluation, treatment, and prevention of vitamin D deficiency: an Endocrine Society clinical practice guideline. JCEM. 2010; 96(7):1911-30. 80-Jno-359860:22 CALCIFIDIOL (55985) VIT D Comments: PATIENT NOT FASTINGPERFORMED BY: Al Detal70 PHHHOTO IncAtrium Health Pineville [id number] Information: [id number] 25 Vitamin D, 25-Hydroxy 31.8 ng/mL (Normal) Range: 30.0-100.0 Comments: Vitamin D deficiency has been defined by the [place] of[place]icine and an Endocrine Society practice guideline as alevel of serum 25-OH vitamin D less than 20 ng/mL (1,2).The Endocrine Society went on to further define vitamin Dinsufficiency as a level between 21 and 29 ng/mL (2).1. IOM ([place] [employer]). 2010. Dietary reference intakes for calcium and D. [place]: The National Academies Press.2. Clifton MF, Robbi MADRID, Ladarius GONZALES, et al. Evaluation, treatment, and prevention of vitamin D deficiency: an Endocrine Society clinical practice guideline. JCEM. 2010; 96(7):1911-30. One Specimen SPRCS (Normal) Comments: PATIENT NOT FASTINGPERFORMED BY: CADFORCEton1447 [facility] [id number] BY: [facility] [id number] 1:25 Identifier Comments: The specimen received included only one patient identifier on theprimary collection container. Our laboratory accrediting agencystates All primary specimen containers must be labeled with 2identifiers at the time of collection. 61-Szl-754615:25 THIAMINE (B-1) (99222) Comments: PATIENT NOT FASTINGPERFORMED BY: zE[employer]y Ybpvfqmswy2769 [facility] [id number] BY: [facility]6370 PHHHOTO IncAtrium Health Pineville [id number] Vit. B1, Whole Blood 159.7 nmol/L (Normal) Range: 66.5-200.0 99-Odj-184427:08 CBC (Auto) (79752) Comments: PATIENT WAS FASTINGPERFORMED BY: Al Detal70 [facility] [id number] Information: [id number] Platelets 202 {x10E3/uL} (Normal) Range: 150-379 RDW 12.6 % (Normal) Range: 12.3-15.4 MCHC 34.3 g/dL (Normal) Range: 31.5-35.7 MCH 31.3 pg (Normal) Range: 26.6-33.0 MCV 91 fL (Normal) Range: 79-97 Hematocrit 44.0 % (Normal) Range: 37.5-51.0 Hemoglobin 15.1 g/dL (Normal) Range: 12.6-17.7 RBC 4.83 {x10E6/uL} (Normal) Range: 4.14-5.80 WBC 8.2 {x10E3/uL} (Normal) Range: 3.4-10.8 18-Qfe-202283:08 PTT (Activated Partial Comments: PATIENT WAS FASTINGPERFORMED BY: [place] 7081270 [facility] [id number] Thromboplastin Time) (43852) aPTT 31 {sec} (Normal) Range: 24-33 Comments: This test has not been validated for monitoring unfractionated heparintherapy. aPTT-based therapeutic ranges for unfractionated heparintherapy have not been established. For general guidelines onHeparin monitoring, refer to the [facility] Directory of Services. 05-Wul-635963:08 PT (Prothrobim Time) (05798) Comments: PATIENT WAS FASTINGPERFORMED BY: [facility]6370 [facility] [id number] Prothrombin Time 10.4 {sec} (Normal) Range: 9.1-12.0 INR 1.0 (Normal) Range: 0.8-1.2 Comments: Reference interval is for non-anticoagulated patients. . Suggested INR therapeutic range for Vitamin K anta gonist therapy: Standard Dose (moderate intensity therapeutic range): 2.0 - 3.0 Higher intensity therapeutic range 2.5 - 3.5 71-Imq-562658:09 CALCIFIDIOL (13343) VIT D 25 Comments: PATIENT WAS FASTINGPERFORMED BY: [place] 7081270 [facility] [id number] Vitamin D, 25-Hydroxy 15.8 ng/mL (Abnormal) Range: 30.0-100.0 Comments: Vitamin D deficiency has been defined by the [place] of[place]icine and an Endocrine Society practice guideline as alevel of serum 25-OH vitamin D less than 20 ng/mL (1,2).The Endocrine Society went on to further define vitamin Dinsufficiency as a level between 21 and 29 ng/mL (2).1. IOM ([place] [employer]). 2010. Dietary reference intakes for calcium and D. [place]: The National Academies Press.2. Clifton MF, Robbi MADRID, Ladarius GONZALES, et al. Evaluation, treatment, and prevention of vitamin D deficiency: an Endocrine Society clinical practice guideline. JCEM. 2010; 96(7):1911-30. 13-Ska-899682:09 Vitamin B-12 (cyanocobalamin) Comments: PATIENT WAS FASTINGPERFORMED BY: [facility] LabCoArgyle Security Flvktw5974 [facility] [id number] (84733) Vitamin B12 399 pg/mL (Normal) Range: 211-946 58-Any-542131:09 METABOLIC PANEL, Comments: PATIENT WAS FASTINGPERFORMED BY: [facility] Aycpsz1001 [facility] [id number] Information: [id number] ORDER COMPREHENSIVE (99322) ALT (SGPT) 15 [iU]/L (Normal) Range: 0-44 AST (SGOT) 18 [iU]/L (Normal) Range: 0-40 Alkaline Phosphatase, S 67 [iU]/L (Normal) Range: 39-117 Bilirubin, Total 0.9 mg/dL (Normal) Range: 0.0-1.2 A/G Ratio 1.8 (Normal) Range: 1.1-2.5 Globulin, Total 2.5 g/dL (Normal) Range: 1.5-4.5 Albumin, Serum 4.6 g/dL (Normal) Range: 3.6-4.8 Protein, Total, Serum 7.1 g/dL (Normal) Range: 6.0-8.5 Calcium, Serum 9.7 mg/dL (Normal) Range: 8.6-10.2 Comments: Please note reference interval change Carbon Dioxide, Total 22 mmol/L (Normal) Range: 18-29 Chloride, Serum 100 mmol/L (Normal) Range: 97-108 Potassium, Serum 4.4 mmol/L (Normal) Range: 3.5-5.2 Sodium, Serum 137 mmol/L (Normal) Range: 134-144 BUN/Creatinine Ratio 18 (Normal) Range: 10-22 eGFR If Africn Am 112 mL/min/1.73 (Normal) eGFR If NonAfricn Am 97 mL/min/1.73 (Normal) Creatinine, Serum 0.76 mg/dL (Normal) Range: 0.76-1.27 BUN 14 mg/dL (Normal) Range: 8-27 Glucose, Serum 86 mg/dL (Normal) Range: 65-99 08-Boh-307007:09 LIPID PANEL (31506) Comments: PATIENT WAS FASTINGPERFORMED BY: Yovia [employer] [facility] [id number] LDL/HDL Ratio 2.0 {ratio_units} (Normal) Range: 0.0-3.6 Comments: LDL/HDL Ratio Men Women 1/2 Avg.Risk 1.0 1.5 Av g.Risk 3.6 3.2 2X Avg.Risk 6.2 5.0 3X Avg.Risk 8.0 6.1 LDL Cholesterol Calc 77 mg/dL (Normal) Range: 0-99 VLDL Cholesterol Micah 17 mg/dL (Normal) Range: 5-40 HDL Cholesterol 38 mg/dL (Abnormal) Comments: According to ATP-III Guidelines, HDL-C >59 mg/dL is considered anegative risk factor for CHD. Triglycerides 84 mg/dL (Normal) Range: 0-149 Cholesterol, Total 132 mg/dL (Normal) Range: 100-199 0-Wck-012310:05 Microscopic Examination Comments: PATIENT NOT FASTINGPERFORMED BY: [employer] Czmugn3907 [facility] [id number] Bacteria Few (Normal) Mucus Threads Present (Normal) Epithelial Cells (non renal) 0-10 {/hpf} (Normal) Range: 0 - 10 RBC 0-2 {/hpf} (Normal) Range: 0 - 2 WBC 6-10 {/hpf} (Abnormal) Range: 0 - 5 [id number]-[id number]:05 URINALYSIS ([id number]) Comments: PATIENT NOT FASTINGPERFORMED BY: [employer] [id number] [facility] [id number] Information: [id number] Microscopic Examination See below: (Normal) Comments: Microscopic was indicated and was performed. Nitrite, Urine Negative (Normal) Urobilinogen,Semi-Qn 1.0 mg/dL (Normal) Range: 0.0-1.9 Bilirubin Negative (Normal) Occult Blood Negative (Normal) Ketones Negative (Normal) Glucose Negative (Normal) Protein Negative (Normal) WBC Esterase Trace (Abnormal) Appearance Clear (Normal) Urine-Color Yellow (Normal) pH 6.0 (Normal) Range: 5.0-7.5 Specific [place] 1.023 (Normal) Range: 1.005-1.030 :12 PSA (PROSTATE SPECIFIC Comments: PATIENT NOT FASTINGPERFORMED BY: [place] [id number] [facility] [id number] Information: [id number] ANTIGEN) (V76.44) Prostate Specific Ag, 0.5 ng/mL (Normal) Range: 0.0-4.0 Serum Comments: [employer] ECLIA methodology. .According to the [place] [employer], Serum PSA shoulddecrease and remain at undetectable levels after radicalprostatectomy. The AUA defines biochemical recurrence as an initialPSA value 0.2 ng/mL or greater followed by a subsequent confirmatoryPSA value 0.2 ng/mL or greater.Values obtained with d ifferent assay methods or kits cannot be usedinterchangeably. Results cannot be interpreted as absolute evidenceof the presence or absence of malignant disease. :16 HgA1C , Office (74666) HgA1C , Office 5.7 % (Normal) Range: 4.6 - 7.1 :31 Ethanol, Blood Comments: PATIENT WAS FASTINGPERFORMED BY: Clupedia[address] [id number] BY: [facility]Du[facility]6370 [facility] [id number] Inf ormation: [id number] Ethanol 0.094 % (Normal) Comments: Verified by repeat analysis Written Authorization WAR (Normal) Comments: PATIENT WAS FASTINGPERFORMED BY: Clupedia[address] [id number] BY: [place] [id number] [facility] [id number] :31 Comments: Written Authorization Received.Authorization received from PER ORIGINAL ORDER [id number] by Avelina Glez 32-Mor-633522:37 PTT (Activated Partial Comments: PATIENT WAS FASTINGPERFORMED BY: [place] 7081270 [facility] [id number] BY: [address] [id number] Thromboplastin Time) (32704) aPTT 31 {sec} (Normal) Range: 24-33 Comments: This test has not been validated for monitoring unfractionated heparintherapy. aPTT-based therapeutic ranges for unfractionated heparintherapy have not been established. For general guidelines onHeparin monitoring, refer to the [facility] Directory of Services. 48-Fys-863084:37 PT (Prothrobim Time) Comments: PATIENT WAS FASTINGPERFORMED BY: [facility]6370 [facility] [id number] BY: [address] [id number] (17713) Prothrombin Time 10.9 {sec} (Normal) Range: 9.1-12.0 INR 1.0 (Normal) Range: 0.8-1.2 Comments: Reference interval is for non-anticoagulated patients. . Suggested INR therapeutic range for Vitamin K anta gonist therapy: Standard Dose (moderate intensity therapeutic range): 2.0 - 3.0 Higher intensity therapeutic range 2.5 - 3.5 4-Ioc-191630:37 DRUG SCREEN (79922) Comments: PATIENT NOT FASTINGPERFORMED BY: [facility] XYA9748 [address] [facility] [id number] Information: [id number] CCU:[id number] LM Ethanol U, Rich Negative % (Normal) Phencyclidine Negative ng/mL (Normal) Opiates Negative ng/mL (Normal) Comments: Opiate test includes Codeine and Morphine only. Cannabinoid Negative ng/mL (Normal) Cocaine (Metab.) Negative ng/mL (Normal) Benzodiazepines Negative ng/mL (Normal) Barbiturate Negative ng/mL (Normal) Amphetamines, Urine Negative ng/mL (Normal) Comments: Amphetamine test includes Amphetamine and Methamphetamine. 95-Wah-760320:37 T4, FREE (THYROXINE) Comments: PATIENT WAS FASTINGPERFORMED BY: [place]ediaMon[place] 2646970 [facility] [id number] BY: [address] [id number] (58196) T4,Free(Direct) 1.14 ng/dL (Normal) Range: 0.82-1.77 26-Yjz-382171:38 HgA1C , Office (90911) HgA1C , Office 5.3 % (Normal) Range: 4.6 - 7.1 58-Htc-256601:38 Blood Glucose , Office (41665) Blood Glucose , Office 87 (Normal) 19-Yqg-669468:38 HgA1C , Office (11727) HgA1C , Office 5.3 % (Normal) Range: 4.6 - 7.1 65-Kdc-069669:37 RHEUMATOID FACTOR-QUANT Comments: PATIENT WAS FASTINGPERFORMED BY: Clupedia[address] [id number] BY: [address] [id number] (13804) RA Latex Turbid. 9.9 {IU/mL} (Normal) Range: 0.0-13.9 11-Krb-016486:37 CCP ANTIBODY (80999) Comments: PATIENT WAS FASTINGPERFORMED BY: Clupedia[address] [id number] BY: [address] [id number] CCP Antibodies IgG/IgA 9 {units} (Normal) Range: 0-19 Comments: Negative <20 Weak positive 20 - 39 Moderate positive 40 - 59 Strong positive >59 97-Qpu-337540:37 ALISON (ANTINUCLEAR ANTIBODY) Comments: PATIENT WAS FASTINGPERFORMED BY: [address] [id number] BY: [address] [id number] (25282) ALISON Direct Negative (Normal) 58-Scz-947427:37 Creatine Kinase Total Comments: PATIENT WAS FASTINGPERFORMED BY: [employer] Lzuccf1486 [facility] [id number] BY: [address] [id number] (25869) Creatine Kinase,Total,Serum 199 U/L (Normal) Range: 24-204 46-Btt-141060:37 C-Reactive Protein Comments: PATIENT WAS FASTINGPERFORMED BY: [facility] Rshyau4110 [facility] [id number] BY: [address] [id number] (12799) C-Reactive Protein, Quant 0.9 mg/L (Normal) Range: 0.0-4.9 48-Zxn-106167:37 Methymalonic Acid, Serum Comments: PATIENT WAS FASTINGPERFORMED BY: [employer] Okjzck6237 [facility] [id number] BY: [address] [id number] (63387) Methylmalonic Acid, Serum 110 nmol/L (Normal) Range: 0-378 Comments: Please note reference interval change 36-Rzl-435263:37 Vitamin B-12 Comments: PATIENT WAS FASTINGPERFORMED BY: [employer] Vdnwhk7204 [facility] [id number] BY: [address] [id number] (cyanocobalamin) (80609) Vitamin B12 293 pg/mL (Normal) Range: 211-946 85-Pwe-833532:37 CALCIFIDIOL (76387) VIT D Comments: PATIENT WAS FASTINGPERFORMED BY: [facility] Nxmduk2542 [facility] [id number] BY: [address] [id number] 25 Vitamin D, 25-Hydroxy 12.6 ng/mL (Abnormal) Range: 30.0-100.0 Comments: Vitamin D deficiency has been defined by the [place] of[place] and an Endocrine Society practice guideline as alevel of serum 25-OH vitamin D less than 20 ng/mL (1,2).The Endocrine Society went on to further define vitamin Dinsufficiency as a level between 21 and 29 ng/mL (2).1. IOM ([place] of Medicine). 2010. Dietary reference intakes for calcium and D. [place]u [place]: The National Academies Press.2. Clifton MF, Robbi MADRID, Ladarius GONZALES, et al. Evaluation, treatment, and prevention of vitamin D deficiency: an Endocrine Society clinical practice guideline. JCEM. 2010; 96(7):1911-30. 44-Fiw-895204:37 CBC with manual diff Comments: PATIENT WAS FASTINGPERFORMED BY: CB [facility] Xjdpdh4210 [facility] [id number] BY: BN [facility] Kaonsdjwpu7395 [facility] [id number] Inf ormation: [id number] (50878) Immature Grans (Abs) 0.0 {x10E3/uL} (Normal) Range: 0.0-0.1 Immature Granulocytes 0 % (Normal) Range: 0-2 Baso (Absolute) 0.1 {x10E3/uL} (Normal) Range: 0.0-0.2 Eos (Absolute) 0.0 {x10E3/uL} (Normal) Range: 0.0-0.4 Monocytes(Absolute) 0.5 {x10E3/uL} (Normal) Range: 0.1-0.9 Lymphs (Absolute) 1.0 {x10E3/uL} (Normal) Range: 0.7-3.1 Neutrophils (Absolute) 4.4 {x10E3/uL} (Normal) Range: 1.4-7.0 Basos 1 % (Normal) Range: 0-3 Eos 1 % (Normal) Range: 0-5 Monocytes 8 % (Normal) Range: 4-12 Lymphs 17 % (Normal) Range: 14-46 Neutrophils 73 % (Normal) Range: 40-74 Platelets 154 {x10E3/uL} (Abnormal) Range: 155-379 RDW 14.0 % (Normal) Range: 12.3-15.4 MCHC 34.7 g/dL (Normal) Range: 31.5-35.7 MCH 33.7 pg (Abnormal) Range: 26.6-33.0 MCV 97 fL (Normal) Range: 79-97 Hematocrit 41.8 % (Normal) Range: 37.5-51.0 Hemoglobin 14.5 g/dL (Normal) Range: 12.6-17.7 RBC 4.30 {x10E6/uL} (Normal) Range: 4.14-5.80 WBC 6.0 {x10E3/uL} (Normal) Range: 3.4-10.8 93-Yqi-402322:37 HEPATIC FUNCTION PANEL Comments: PATIENT WAS FASTINGPERFORMED BY: [employer] [address] [id number] BY: Power EfficiencyBrenda [place] [id number] (17923) Bilirubin, Direct 0.55 mg/dL (Abnormal) Range: 0.00-0.40 :37 TSH (THYROID STIMULATING Comments: PATIENT WAS FASTINGPERFORMED BY: Yovia[address] [id number] BY: Clupedia[address] [id number] HORMONE) (74621) TSH 0.551 {uIU/mL} (Normal) Range: 0.450-4.500 :37 Lipid Panel (87622) Comments: PATIENT WAS FASTINGPERFORMED BY: [employer] [address] [place] [address] [id number] BY: Power [employer] [id number] LDL/HDL Ratio 0.8 {ratio_units} (Normal) Range: 0.0-3.6 LDL Cholesterol Calc 99 mg/dL (Normal) Range: 0-99 VLDL Cholesterol Micah 15 mg/dL (Normal) Range: 5-40 HDL Cholesterol 127 mg/dL (Normal) Comments: Results confirmed ondilution.According to ATP-III Guidelines, HDL-C >59 mg/dL is considered anegative risk factor for CHD. Triglycerides 77 mg/dL (Normal) Range: 0-149 Cholesterol, Total 241 mg/dL (Abnormal) Range: 100-199 43-Zsx-035309:37 Metabolic Panel, Comments: PATIENT WAS FASTINGPERFORMED BY: [employer] [facility] [id number] BY: Clup[address] [id number] Comprehensive (10899) ALT (SGPT) 61 [iU]/L (Abnormal) Range: 0-44 AST (SGOT) 97 [iU]/L (Abnormal) Range: 0-40 Alkaline Phosphatase, S 85 [iU]/L (Normal) Range: 39-117 Bilirubin, Total 1.2 mg/dL (Normal) Range: 0.0-1.2 A/G Ratio 1.6 (Normal) Range: 1.1-2.5 Globulin, Total 3.0 g/dL (Normal) Range: 1.5-4.5 Albumin, Serum 4.8 g/dL (Normal) Range: 3.6-4.8 Protein, Total, Serum 7.8 g/dL (Normal) Range: 6.0-8.5 Calcium, Serum 9.3 mg/dL (Normal) Range: 8.6-10.2 Carbon Dioxide, Total 19 mmol/L (Normal) Range: 19-28 Chloride, Serum 97 mmol/L (Normal) Range: 97-108 Potassium, Serum 3.8 mmol/L (Normal) Range: 3.5-5.2 Sodium, Serum 137 mmol/L (Normal) Range: 134-144 BUN/Creatinine Ratio 21 (Normal) Range: 10-22 eGFR If Africn Am 125 mL/min/1.73 (Normal) eGFR If NonAfricn Am 109 mL/min/1.73 (Normal) Creatinine, Serum 0.58 mg/dL (Abnormal) Range: 0.76-1.27 BUN 12 mg/dL (Normal) Range: 8-27 Glucose, Serum 90 mg/dL (Normal) Range: 65-99 02-Ojh-263389:33 Ethanol, Blood Comments: PATIENT NOT FASTINGPERFORMED BY: [facility]6370 [facility] [id number] BY: Clupedia[address] [id number] Ethanol 0.085 % (Normal) Comments: Verified by repeat analysis 31-Dla-643158:33 Magnesium (02015) Comments: PATIENT NOT FASTINGPERFORMED BY: [facility] Yxusqn4786 [facility] [id number] BY: [address] [id number] Magnesium, Serum 1.6 mg/dL (Normal) Range: 1.6-2.6 53-Cla-755346:33 Methymalonic Acid, Serum Comments: PATIENT NOT FASTINGPERFORMED BY: [facility] Eawjjg0875 [facility] [id number] BY: [address] [id number] (58966) Methylmalonic Acid, Serum 78 nmol/L (Normal) Range: 73-376 Comments: The reference range for methylmalonic acid has been set at +3sd abovethe mean for healthy blood bank donors. In the clinical assessment ofpatients with megaloblastic anemias a cutoff of +3sd provides gr eaterspecificity in the diagnosis of the vitamin deficiency states,despite the sacrifice of some sensitivity. 92-Eea-107672:33 Vitamin B-12 Comments: PATIENT NOT FASTINGPERFORMED BY: [facility] Tsejvb6867 [facility] [id number] BY: [address] [id number] (cyanocobalamin) (63713) Vitamin B12 449 pg/mL (Normal) Range: 211-946 24-Ppl-291152:33 TSH (88158) Comments: PATIENT NOT FASTINGPERFORMED BY: [facility] Kdzkhd2307 [facility] [id number] BY: [address] [id number] TSH 0.654 {uIU/mL} (Normal) Range: 0.450-4.500 36-Tof-210609:33 METABOLIC PANEL, Comments: PATIENT NOT FASTINGPERFORMED BY: [facility]CoKessler Institute for RehabilitationSjjpdy5651 [facility] [id number] BY: LabCo[address] [id number] Inf ormation: [id number] COMPREHENSIVE (38392) ALT (SGPT) 88 [iU]/L (Abnormal) Range: 0-44 AST (SGOT) 132 [iU]/L (Abnormal) Range: 0-40 Alkaline Phosphatase, S 87 [iU]/L (Normal) Range: 25-160 Bilirubin, Total 1.4 mg/dL (Abnormal) Range: 0.0-1.2 A/G Ratio 1.7 (Normal) Range: 1.1-2.5 Globulin, Total 2.8 g/dL (Normal) Range: 1.5-4.5 Albumin, Serum 4.8 g/dL (Normal) Range: 3.6-4.8 Protein, Total, Serum 7.6 g/dL (Normal) Range: 6.0-8.5 Calcium, Serum 9.2 mg/dL (Normal) Range: 8.6-10.2 Carbon Dioxide, Total 20 mmol/L (Normal) Range: 20-32 Chloride, Serum 102 mmol/L (Normal) Range: 97-108 Potassium, Serum 3.6 mmol/L (Normal) Range: 3.5-5.2 Sodium, Serum 139 mmol/L (Normal) Range: 134-144 BUN/Creatinine Ratio 19 (Normal) Range: 10-22 eGFR If Africn Am 127 mL/min/1.73 (Normal) eGFR If NonAfricn Am 110 mL/min/1.73 (Normal) Creatinine, Serum 0.57 mg/dL (Abnormal) Range: 0.76-1.27 BUN 11 mg/dL (Normal) Range: 8-27 Glucose, Serum 97 mg/dL (Normal) Range: 65-99 :49 Blood Glucose , Office (48203) Blood Glucose , Office 90 (Normal) :49 HgA1C , Office (98526) HgA1C , Office 5.3 % (Normal) Range: 4.6 - 7.1 :07 MAGNESIUM (86560) Comments: PATIENT NOT FASTINGPERFORMED BY: LabCoKessler Institute for RehabilitationIkzhbb0213 [facility] [id number] Magnesium, Serum 1.3 mg/dL (Abnormal) Range: 1.6-2.6 43-Qba-572235:07 PSA (PROSTATE SPECIFIC Comments: PATIENT NOT FASTINGPERFORMED BY: [facility]6370 [facility] [id number] ANTIGEN) (71999) Prostate Specific Ag, 0.8 ng/mL (Normal) Range: 0.0-4.0 Serum Comments: RealtyAP[employer] ECLIA methodology. .According to the [place] [employer], Serum PSA shoulddecrease and remain at undetectable levels after radicalprostatectomy. The AUA defines biochemical recurrence as an initialPSA value 0.2 ng/mL or greater followed by a subsequent confirmatoryPSA value 0.2 ng/mL or greater.Values obtained with d ifferent assay methods or kits cannot be usedinterchangeably. Results cannot be interpreted as absolute evidenceof the presence or absence of malignant disease. 79-Qsi-856781:07 Metabolic Panel, Comments: PATIENT NOT FASTINGPERFORMED BY: [facility]fficiencyDu[facility] Hospital6370 [facility] [id number] Information: ADD [id number] AND DRAW FEE 99 3469 Comprehensive (59512) ALT (SGPT) 74 [iU]/L (Abnormal) Range: 0-44 AST (SGOT) 107 [iU]/L (Abnormal) Range: 0-40 Alkaline Phosphatase, S 70 [iU]/L (Normal) Range: 25-160 Bilirubin, Total 1.2 mg/dL (Normal) Range: 0.0-1.2 A/G Ratio 1.9 (Normal) Range: 1.1-2.5 Globulin, Total 2.4 g/dL (Normal) Range: 1.5-4.5 Albumin, Serum 4.6 g/dL (Normal) Range: 3.6-4.8 Protein, Total, Serum 7.0 g/dL (Normal) Range: 6.0-8.5 Calcium, Serum 8.8 mg/dL (Normal) Range: 8.6-10.2 Carbon Dioxide, Total 19 mmol/L (Abnormal) Range: 20-32 Chloride, Serum 100 mmol/L (Normal) Range: 97-108 Potassium, Serum 3.6 mmol/L (Normal) Range: 3.5-5.2 Sodium, Serum 138 mmol/L (Normal) Range: 134-144 BUN/Creatinine Ratio 18 (Normal) Range: 10-22 eGFR If Africn Am 125 mL/min/1.73 (Normal) eGFR If NonAfricn Am 108 mL/min/1.73 (Normal) Creatinine, Serum 0.60 mg/dL (Abnormal) Range: 0.76-1.27 BUN 11 mg/dL (Normal) Range: 8-27 Glucose, Serum 98 mg/dL (Normal) Range: 65-99 49-Ptr-28918:00 Urinalysis, Office (23486) UA - BILIRUBIN Negative (Normal) UA - BLOOD Non Hemolyzed Trace (Normal) UA - GLUCOSE Negative (Normal) UA - KETONES Negative mg/dL (Normal) UA - LEUKOCYTE ESTERASE Negative (Normal) UA - NITRITE Negative (Normal) UA - PH 7.0 (Normal) UA - PROTEIN Negative mg/dL (Normal) UA - SPECIFIC GRAVITY 1.015 (Normal) URINE UROBILINGN RICH TIMED Normal mg/dL (Normal) :32 Potassium Serum (94602) Comments: PATIENT NOT FASTINGPERFORMED BY: [employer] Qnxkcd1912 [facility] [id number] Information: [id number] Potassium, Serum 4.0 mmol/L (Normal) Range: 3.5-5.2 :32 Magnesium (15877) Comments: PATIENT NOT FASTINGPERFORMED BY: [employer] Fpsytu4694 [facility] [id number] Magnesium, Serum 1.7 mg/dL (Normal) Range: 1.6-2.6 Magnesium, Serum 1.4 mg/dL Comments: PATIENT WAS FASTINGPERFORMED BY: [employer] Hocpcz6458 [facility] [id number] :32 (Abnormal) Range: 1.6-2.6 Written Authorization WAR (Normal) Comments: PATIENT WAS FASTINGPERFORMED BY: ClupediaKessler Institute for RehabilitationWgmieh3507 [facility] [id number] :32 Comments: Written Authorization Received.Authorization received from JEWELL HADLEY [id number] by Kenisha Lozano :32 Metabolic Panel, Basic Comments: PATIENT WAS FASTINGPERFORMED BY: ClupediaMonica [place] 2646970 [facility] [id number] BY: [address] [id number] (64560) Calcium, Serum 9.1 mg/dL (Normal) Range: 8.6-10.2 Carbon Dioxide, Total 21 mmol/L (Normal) Range: 20-32 Chloride, Serum 100 mmol/L (Normal) Range: 97-108 Potassium, Serum 2.9 mmol/L (Abnormal) Range: 3.5-5.2 Comments: Client Requested Flag Sodium, Serum 140 mmol/L (Normal) Range: 134-144 BUN/Creatinine Ratio 19 (Normal) Range: 10-22 eGFR If Africn Am 131 mL/min/1.73 (Normal) eGFR If NonAfricn Am 113 mL/min/1.73 (Normal) Creatinine, Serum 0.54 mg/dL (Abnormal) Range: 0.76-1.27 BUN 10 mg/dL (Normal) Range: 8-27 Glucose, Serum 84 mg/dL (Normal) Range: 65-99 0-Jup-530281:32 HEPATIC FUNCTION PANEL Comments: PATIENT WAS FASTINGPERFORMED BY: [facility]upediaKessler Institute for RehabilitationOueera1051 [facility] [id number] BY: [address] [id number] (49217) ALT (SGPT) 72 [iU]/L (Abnormal) Range: 0-55 AST (SGOT) 88 [iU]/L (Abnormal) Range: 0-40 Alkaline Phosphatase, S 74 [iU]/L (Normal) Range: 25-160 Bilirubin, Direct 0.57 mg/dL (Abnormal) Range: 0.00-0.40 Bilirubin, Total 1.3 mg/dL (Abnormal) Range: 0.0-1.2 Albumin, Serum 4.5 g/dL (Normal) Range: 3.6-4.8 Protein, Total, Serum 7.1 g/dL (Normal) Range: 6.0-8.5 2-Chb-764684:32 CALCIFIDIOL (41234) VIT D Comments: PATIENT WAS FASTINGPERFORMED BY: [facility] Zpgykn7057 [facility] [place] [id number] BY: [address] [id number] 25 Vitamin D, 25-Hydroxy 39.6 ng/mL (Normal) Range: 30.0-100.0 Comments: Vitamin D deficiency has been defined by the [place] ofDay[facility] Children'S Hospitalcine and an Endocrine Society practice guideline as alevel of serum 25-OH vitamin D less than 20 ng/mL (1,2).The Endocrine Society went on to further define vitamin Dinsufficiency as a level between 21 and 29 ng/mL (2).1. IOM ([place] of Medicine). 2010. Dietary reference intakes for calcium and D. Cantu [place]: The National AcademFOODITY Press.2. Clifton MF, Robbi MADRID, Ladarius GONZALES, et al. Evaluation, treatment, and prevention of vitamin D deficiency: an Endocrine Society clinical practice guideline. JCEM. 2010; 96(7):1911-30. 9-Iee-211460:32 Vitamin B-12 (cyanocobalamin) Comments: PATIENT WAS FASTINGPERFORMED BY: [facility] Healthrp Tddtyk8419 [facility] [id number] BY: [address] [id number] (39673) Vitamin B12 557 pg/mL (Normal) Range: 211-946 :32 TSH (03386) Comments: PATIENT WAS FASTINGPERFORMED BY: [facility] Jtagmt8511 [facility] [place] [id number] BY: [address] [id number] TSH 0.507 {uIU/mL} (Normal) Range: 0.450-4.500 :32 T4, FREE (THYROXINE) Comments: PATIENT WAS FASTINGPERFORMED BY: [facility] Ebtfwq4000 [facility] [place] [id number] BY: [address] [id number] (51823) T4,Free(Direct) 1.07 ng/dL (Normal) Range: 0.82-1.77 8-Djy-177728:32 T3, FREE (TRIDOTHYRONINE) Comments: PATIENT WAS FASTINGPERFORMED BY: LabCoMonica Ville 2646970 [facility] [id number] BY: [address] [id number] (19922) Triiodothyronine,Free,Serum 3.4 pg/mL (Normal) Range: 2.0-4.4 :32 Ethanol, Blood Comments: PATIENT WAS FASTINGPERFORMED BY: Lab[address] [id number] BY: Lab[address] [id number] Ethanol 0.025 % (Normal) Comments: Verified by repeat analysis 04-Apr-20128:30 [facility] Radiology Report See Note (Normal) Comments: CLINICAL:62-year-old male with history of fatigue. I-123 THYROID UPTAKE and SCAN COMPARISON:None available FINDINGS:The patient was administered a 300 uCi I-123 capsule by mouth. The 4- hour I-123 radioa ctive iodine thyroidal uptake was calculated to be13.1 % (normal 5 to 25 %). The 24-hour I-123 radioactive iodine thyroidal uptake was calculated tobe40.7 % (normal 5 to 40 %). The I-123 thyroid scan de monstrates relatively homogeneousradiopharmaceutical concentration throughout both lobes of a vaguelyU-shaped thyroid gland. There are no colloidal parenchymalhypofunctioning-cold nodules noted in eith er lobe of the thyroid gland. IMPRESSION:1. NORMAL 4- and BORDERLINE ELEVATED 24-hour I-123 radioactive iodinethyroidal uptakes. Correlation with feature of thyroid function studiesisrecommended. 2. T he I-123 thyroid scan is consistent with a stage I nodular colloidgoiter in the setting of normal thyroid function studies or potentiallyearly diffuse toxic goiter in the appropriate clinical setting. S igned:Jeffrey Fatima M.D.April 05, 2012 at 9:22:03 PM EDTElectronically Signed RB/RB Professional Interpretation Provided By: [facility], , To consult with a radiologist regarding this report, please call our 60A4iuaczmi line @ Dictated on 04/04/12951 by Jeffrey Fatima DOTranscribed on 04/05/122125 by ITS IMPORTSign by [facility] Jeffrey vigli DO on 04/05/122126 Sign by: Jeffrey Fatima DO 64-Vgb-694549:50 TSH (66481) Comments: PATIENT NOT FASTINGPERFORMED BY: CB [facility] Zzhdsb0186 Perry RoadDublin [place] [id number] TSH 0.337 {uIU/mL} (Abnormal) Range: 0.450-4.500 :50 T4, FREE (THYROXINE) (54285) Comments: PATIENT NOT FASTINGPERFORMED BY: CB [facility] Abefvs7135 Perry RoadDublin [place] [id number] T4,Free(Direct) 1.14 ng/dL (Normal) Range: 0.82-1.77 :50 T3, FREE (TRIDOTHYRONINE) (32807) Comments: PATIENT NOT FASTINGPERFORMED BY: CB [facility] Sjctgu2065 Perry RoadDublin [place] [id number] Triiodothyronine,Free,Serum 3.2 pg/mL (Normal) Range: 2.0-4.4 35-War-659258:50 CALCIFIDIOL (39436) VIT D 25 Comments: PATIENT NOT FASTINGPERFORMED BY: CB [facility] Povomh6134 Perry RoadDublin [place] [id number] Vitamin D, 25-Hydroxy 57.3 ng/mL (Normal) Range: 30.0-100.0 Comments: Vitamin D deficiency has been defined by the [place] of[place]icine and an Endocrine Society practice guideline as alevel of serum 25-OH vitamin D less than 20 ng/mL (1,2).The Endocrine Society went on to further define vitamin Dinsufficiency as a level between 21 and 29 ng/mL (2).1. IOM ([place] of [employer]). 2010. Dietary reference intakes for calcium and D. Cantu [place]: The National Academies Press.2. Robbi Morales, Ladarius GONZALES, et al. Evaluation, treatment, and prevention of vitamin D deficiency: an Endocrine Society clinical practice guideline. JCEM. 2010; 96(7):1911-30. 85-Irz-890922:50 HEPATIC FUNCTION PANEL Comments: PATIENT NOT FASTINGPERFORMED BY: Al Detal70 [facility] [id number] Information: [id number] (36899) ALT (SGPT) 76 [iU]/L (Abnormal) Range: 0-55 Alkaline Phosphatase, S 77 [iU]/L (Normal) Range: 25-160 AST (SGOT) 88 [iU]/L (Abnormal) Range: 0-40 Bilirubin, Direct 0.52 mg/dL Range: 0.00-0.40 (Abnormal) Bilirubin, Total 1.3 mg/dL (Abnormal) Range: 0.0-1.2 Albumin, Serum 4.7 g/dL (Normal) Range: 3.6-4.8 Protein, Total, Serum 7.2 g/dL (Normal) Range: 6.0-8.5 11-Feb-2012 Vitamin D, 25-Hydroxy 5.2 ng/mL (Abnormal) Comments: PERFORMED BY: [facility] LabPaddle86370 [facility] [id number] 12:13 Range: 30.0-100.0 Comments: Vitamin D deficiency has been defined by the [place] ofMedicine and an Endocrine Society practice guideline as alevel of serum 25-OH vitamin D less than 20 ng/mL (1,2).The Endocrine Society went on to further define vitamin Dinsufficiency as a level between 21 and 29 ng/mL (2).1. IOM ([place] [employer]). 2010. Dietary reference intakes for calcium and D. Cantu [place]: The National Academies Press.2. Robbi Morales, Ladarius GONZALES, et al. Evaluation, treatment, and prevention of vitamin D deficiency: an Endocrine Society clinical practice guideline. JCEM. 2010; 96(7): 1911-30. .Effective January 31, 2012, Vitamin D, 25 Hydroxy specimen requirements will change to serum only. 11-Feb-2012 Mitochondrial (M2) <20.0 {Units} Comments: PERFORMED BY: [facility] [id number] 12:13 Antibody (Normal) Range: 0.0-20.0 Comments: Negative 0.0 - 20.0 Equivocal 20.1 - 24.9 Positive >24.9 . Mitochondrial (M2) Antibodies are found in 90-96% of patients with primary biliary cirrhosis. 11-Feb-2012 Actin (Smooth Muscle) 8 {Units} (Normal) Comments: PERFORMED BY: [facility] [id number] 12:13 Antibody Range: 0-19 Comments: Negative 0 - 19 Weak positive 20 - 30 Moderate to strong positive >30 . Actin Antibodies are found in 52-85% of patients with autoimmune hepatitis or chronic active hepatitis and in 22% of patients with primary biliary cirrhosis. 11-Feb-2012 Ferritin, Serum 364 ng/mL (Normal) Comments: PERFORMED BY: [employer] [facility] [id number] 12:13 Range: 30-400 25-Gof-020188:13 Antinuclear Antibodies Direct Comments: PERFORMED BY: [employer] [facility] [id number] ALISON Direct Negative (Normal) 62-Rix-097501:13 Hepatic Function Panel (7) Comments: PERFORMED BY: [facility] [id number] ALT (SGPT) 62 [iU]/L (Abnormal) Range: 0-55 Alkaline Phosphatase, S 82 [iU]/L (Normal) Range: 25-160 AST (SGOT) 106 [iU]/L (Abnormal) Range: 0-40 Bilirubin, Direct 0.44 mg/dL (Abnormal) Range: 0.00-0.40 Bilirubin, Total 0.9 mg/dL (Normal) Range: 0.0-1.2 Albumin, Serum 4.5 g/dL (Normal) Range: 3.6-4.8 Protein, Total, Serum 7.3 g/dL (Normal) Range: 6.0-8.5 23-Ndp-437334:13 Thyroxine (T4) Free, Direct, Comments: PERFORMED BY: [facility] [id number] S T4,Free(Direct) 1.10 ng/dL Range: 0.82-1.77 (Normal) 11-Feb-2012 Triiodothyronine,Free,Seru 3.4 pg/mL (Normal) Comments: PERFORMED BY: [place] 7081270 [facility] [id number] 12:13 m Range: 2.0-4.4 11-Feb-2012 TSH 0.371 {uIU/mL} Comments: PERFORMED BY: [address] [id number] 12:13 (Abnormal) Range: 0.450-4.500 57-Aqp-793744:04 Thyroxine (T4) Free, Comments: PATIENT WAS FASTINGPERFORMED BY: [facility] [id number] Information: [id number] Direct, S T4,Free(Direct) 1.25 ng/dL Range: 0.82-1.77 (Normal) 07-Dec-2011 Triiodothyronine,Free,Seru 3.1 pg/mL (Normal) Comments: PATIENT WAS FASTINGPERFORMED BY: [facility] [id number] 13:04 m Range: 2.0-4.4 07-Dec-2011 Written Authorization WAR (Normal) Comments: PATIENT WAS FASTINGPERFORMED BY: [facility] [id number] 13:04 Comments: Written Authorization Received.Authorization received from JEWELL HADLEY [id number] by Margaret Zuniga 75-Wrr-313617:04 TSH ([id number]) Comments: PATIENT WAS FASTINGPERFORMED BY: [facility] [id number] TSH 0.290 {uIU/mL} (Abnormal) Range: 0.450-4.500 59-Tcb-631005:04 CALCIFIDIOL (03898) VIT D 25 Comments: PATIENT WAS FASTINGPERFORMED BY: [facility] [id number] Vitamin D, 25-Hydroxy 7.2 ng/mL (Abnormal) Range: 30.0-100.0 Comments: Vitamin D deficiency has been defined by the [place] [facility] and an Endocrine Society practice guideline as alevel of serum 25-OH vitamin D less than 20 ng/mL (1,2).The Endocrine Society went on to further define vitamin Dinsufficiency as a level between 21 and 29 ng/mL (2).1. IOM ([place] of Medicine). 2011. Dietary reference intakes for calcium and D. [place]u [place]: The National AcademFOODITY Press.2. Clifton IGNACIO, Robbi MADRID, Ladarius GONZALES, et al. Evaluation, treatment, and prevention of vitamin D deficiency: an Endocrine Society clinical practice guideline. JCEM. 2010; 96(7):1911-30. 87-Vhx-695672:04 Vitamin B-12 (cyanocobalamin) Comments: PATIENT WAS FASTINGPERFORMED BY: [facility] [id number] (26341) Vitamin B12 920 pg/mL (Normal) Range: 211-946 43-Nun-305849:04 METABOLIC PANEL, COMPREHENSIVE Comments: PATIENT WAS FASTINGPERFORMED BY: [facility] [id number] (50856) ALT (SGPT) 101 [iU]/L (Abnormal) Range: 0-55 AST (SGOT) 134 [iU]/L (Abnormal) Range: 0-40 Alkaline Phosphatase, S 77 [iU]/L (Normal) Range: 25-160 Bilirubin, Total 1.3 mg/dL (Abnormal) Range: 0.0-1.2 A/G Ratio 1.7 (Normal) Range: 1.1-2.5 Globulin, Total 2.7 g/dL (Normal) Range: 1.5-4.5 Albumin, Serum 4.6 g/dL (Normal) Range: 3.6-4.8 Protein, Total, Serum 7.3 g/dL (Normal) Range: 6.0-8.5 Calcium, Serum 9.0 mg/dL (Normal) Range: 8.6-10.2 Carbon Dioxide, Total 22 mmol/L (Normal) Range: 20-32 Chloride, Serum 98 mmol/L (Normal) Range: 97-108 Potassium, Serum 3.4 mmol/L (Abnormal) Range: 3.5-5.2 Comments: Client Requested Flag Sodium, Serum 138 mmol/L (Normal) Range: 134-144 Comments: Please note reference interval change BUN/Creatinine Ratio 14 (Normal) Range: 10-22 eGFR If Africn Am 119 mL/min/1.73 (Normal) Comments: Note: A persistent eGFR <60 mL/min/1.73 m2 (3 months or more) mayindicate chronic kidney disease. An eGFR >59 mL/min/1.73 m2 with anelevated urine protein also may indicate chronic kidney disease.Calculated using CKD-EPI formula. eGFR If NonAfricn Am 103 mL/min/1.73 (Normal) Creatinine, Serum 0.69 mg/dL (Abnormal) Range: 0.76-1.27 BUN 10 mg/dL (Normal) Range: 8-27 Glucose, Serum 85 mg/dL (Normal) Range: 65-99 57-Eqb-545691:04 LIPID PANEL (49760) Comments: PATIENT WAS FASTINGPERFORMED BY: [facility] [id number] LDL Cholesterol Calc 79 mg/dL (Normal) Range: 0-99 LDL/HDL Ratio 0.5 {ratio_units} (Normal) Range: 0.0-3.6 VLDL Cholesterol Micah 11 mg/dL (Normal) Range: 5-40 HDL Cholesterol 156 mg/dL (Normal) Comments: Results confirmed ondilution.According to ATP-III Guidelines, HDL-C >59 mg/dL is considered anegative risk factor for CHD. Triglycerides 57 mg/dL (Normal) Range: 0-149 Cholesterol, Total 246 mg/dL (Abnormal) Range: 100-199 87-Ech-090151:04 CBC WITH MANUAL DIFF Comments: PATIENT WAS FASTINGPERFORMED BY: [facility] [id number] Information: [id number] (94355) Immature Grans (Abs) 0.0 {x10E3/uL} (Normal) Range: 0.0-0.1 Immature Granulocytes 0 % (Normal) Range: 0-2 Baso (Absolute) 0.1 {x10E3/uL} (Normal) Range: 0.0-0.2 Eos (Absolute) 0.0 {x10E3/uL} (Normal) Range: 0.0-0.4 Monocytes(Absolute) 0.5 {x10E3/uL} (Normal) Range: 0.1-1.0 Lymphs (Absolute) 1.2 {x10E3/uL} (Normal) Range: 0.7-4.5 Neutrophils (Absolute) 3.9 {x10E3/uL} (Normal) Range: 1.8-7.8 Basos 2 % (Normal) Range: 0-3 Eos 0 % (Normal) Range: 0-7 Monocytes 8 % (Normal) Range: 4-13 Lymphs 21 % (Normal) Range: 14-46 Neutrophils 69 % (Normal) Range: 40-74 Platelets 142 {x10E3/uL} (Normal) Range: 140-415 RDW 13.7 % (Normal) Range: 11.7-15.0 MCHC 34.9 g/dL (Normal) Range: 32.0-36.0 MCH 34.1 pg (Abnormal) Range: 27.0-34.0 MCV 98 fL (Normal) Range: 80-98 Hematocrit 41.8 % (Normal) Range: 36.0-50.0 Hemoglobin 14.6 g/dL (Normal) Range: 12.5-17.0 RBC 4.28 {x10E6/uL} (Normal) Range: 4.10-5.60 WBC 5.7 {x10E3/uL} (Normal) Range: 4.0-10.5 :56 BRAIN/HEAD W/WO CONTRAST Radiology Report See Note (Normal) Comments: PROCEDURE: CT BRAIN WITH AND WITHOUT CONTRAST REASON FOR EXAM: Male, 61 years old. The patient presents with ahistoryof headache memory loss and speech difficulty. TECHNIQUE: Transaxial CT imaging of the brain was performed pre andpostcontrast administration. The examination was performed with intravenousadministration of 50ML ml of Isovue 300 contrast material. COMPARISON: None. FINDINGS:Nor mal size of the ventricles and extra-axial spaces for the patient'foreign.Normal white matter tracts of the supratentorial brain. Normal basal ganglia. Normal bilateral thalami. Normal arterial and venous enhancement. There is no enhancing intra-axialor extra-axial abnormality. There is no demonstrated extra-axial hemorrhage. There is nodemonstratedintraparenchymal hemorrhage. Normal brainstem. Jeannette l cerebellum. Normal basal cisterns. Normal soft tissue structures. Normal calvarium. Normal sella turcica. Normal skull base. Normal visualized orbital structures. Normal visualized paranasalsinuses . IMPRESSION:Normal unenhanced and enhanced CT scan of the brain. Dictated on 05/27/11 0818 by Yasmeen ALBARADO,GabrieleTranscribed on 05/27/111331 by ITS IMPORTSign by Maxi Arana MD on 1332 Sign by: Maxi Arana MD 48-Ops-82338:00 LIVER Radiology Report See Note (Normal) Comments: CLINICAL:Male, 61 years old. The patient presents with a history of elevatedliverfunction tests. ABDOMINAL ULTRASOUND TECHNIQUE:Transabdominal TECHNICAL QUALITY:Adequate. COMPARISON:None. FINDINGS: Li brandy: There is hepatomegaly. The liver measures 17 cm. There isincreased echogenicity consistent with fatty infiltration. There is nodemonstrated mass lesion. Gallbladder: Normal distended gallbladd er. The gallbladder wallmeasures2 mm. There are no demonstrated gallstones. There is a negativesonographic Cameron's sign. There is no pericholecystic fluid. Common Bile Duct (C.B.D.): Normal siz e C.B.D. The common bile ductmeasures 3.1 mm. Pancreas: Normal size of the head, body of the pancreas. The tail isobscured due to overlying bowel gas. There is normal echogenicity ofthepancreas. There is no demonstrated pancreatic mass or cyst. Right Kidney: Normal size of the right kidney. The right pnbvecldxrtgru06.4 cm. Normal renal cortex. The right cortex measures 1.7 cm. Thereisno de monstrated renal mass or cyst. There are no demonstrated renalcalculi. There is no hydronephrosis. There is no ascites. IMPRESSION:Normal abdominal ultrasound examination. Dictated on 04/21/11 082 9 by Va Arana MDranscribed on 04/21/11 1107 by ITS IMPORTSign by Maxi Arana MD on 04/21/11 1108 Sign by: Maxi Arana MD :16 HEPATIC FUNCTION PANEL Comments: PATIENT NOT FASTINGPERFORMED BY: [facility]ediaKessler Institute for RehabilitationCrdtem8612 [facility] [id number] Information: [id number] (88021) Alkaline Phosphatase, S 69 [iU]/L (Normal) Range: 25-160 ALT (SGPT) 142 [iU]/L (Abnormal) Range: 0-55 AST (SGOT) 171 [iU]/L (Abnormal) Range: 0-40 Bilirubin, Direct 0.43 mg/dL (Abnormal) Range: 0.00-0.40 Bilirubin, Total 0.8 mg/dL (Normal) Range: 0.0-1.2 Albumin, Serum 4.7 g/dL (Normal) Range: 3.6-4.8 Protein, Total, Serum 7.2 g/dL (Normal) Range: 6.0-8.5 :16 HEPATITIS PANEL (98128) Comments: PATIENT NOT FASTINGPERFORMED BY: [facility]ediaKessler Institute for RehabilitationTnzjxg8419 [facility] [id number] Hep C Virus Ab <0.1 {s/co_ratio} (Normal) Range: 0.0-0.9 Comments: Negative: < 0.8 Indeterminate 0.8 - 0.9 Positive: > 0.9 . In order to reduce the incidence of a false positive result, the CDC recommends that all s/co ratios between 1.0 and 10.9 be confirmed with additional RIBA or PCR testing. Hep B Core Ab, IgM Negative (Normal) HBsAg Screen Negative (Normal) Hep A Ab, IgM Negative (Normal) 99-Lqd-766575:05 CBC With Differential/Platelet Comments: PATIENT WAS FASTINGPERFORMED BY: [facility]fficiencyCoKessler Institute for RehabilitationBocskr9743 [facility] [id number] BY: [facility] [id number] Immature Grans (Abs) 0.0 {x10E3/uL} (Normal) Range: 0.0-0.1 Immature Granulocytes 0 % (Normal) Range: 0-1 Comments: Please note reference interval change Baso (Absolute) 0.0 {x10E3/uL} (Normal) Range: 0.0-0.2 Eos (Absolute) 0.1 {x10E3/uL} (Normal) Range: 0.0-0.4 Lymphs (Absolute) 1.1 {x10E3/uL} (Normal) Range: 0.7-4.5 Monocytes(Absolute) 0.6 {x10E3/uL} (Normal) Range: 0.1-1.0 Neutrophils (Absolute) 5.9 {x10E3/uL} (Normal) Range: 1.8-7.8 Basos 0 % (Normal) Range: 0-3 Eos 1 % (Normal) Range: 0-7 Monocytes 8 % (Normal) Range: 4-13 Lymphs 14 % (Normal) Range: 14-46 Neutrophils 77 % (Abnormal) Range: 40-74 Platelets 149 {x10E3/uL} (Normal) Range: 140-415 MCH 34.2 pg (Abnormal) Range: 27.0-34.0 MCHC 35.5 g/dL (Normal) Range: 32.0-36.0 RDW 12.7 % (Normal) Range: 11.7-15.0 MCV 97 fL (Normal) Range: 80-98 Hematocrit 46.2 % (Normal) Range: 36.0-50.0 Hemoglobin 16.4 g/dL (Normal) Range: 12.5-17.0 RBC 4.79 {x10E6/uL} (Normal) Range: 4.10-5.60 WBC 7.7 {x10E3/uL} (Normal) Range: 4.0-10.5 71-Pee-436164:05 Comp. Metabolic Panel Comments: PATIENT WAS FASTINGPERFORMED BY: [facility] EfficiencyElizabeth [place] 7798670 [facility] [id number] BY: LabCoDenise [place] 008527 [facility] [id number] (14) Alkaline Phosphatase, S 74 [iU]/L (Normal) Range: 25-160 ALT (SGPT) 129 [iU]/L Range: 0-55 (Abnormal) AST (SGOT) 121 [iU]/L Range: 0-40 (Abnormal) A/G Ratio 1.8 (Normal) Range: 1.1-2.5 Bilirubin, Total 3.1 mg/dL Range: 0.0-1.2 (Abnormal) Globulin, Total 2.8 g/dL (Normal) Range: 1.5-4.5 Albumin, Serum 5.0 g/dL Range: 3.6-4.8 (Abnormal) Protein, Total, Serum 7.8 g/dL (Normal) Range: 6.0-8.5 Calcium, Serum 9.8 mg/dL (Normal) Range: 8.6-10.2 Carbon Dioxide, Total 21 mmol/L (Normal) Range: 20-32 Chloride, Serum 95 mmol/L Range: 97-108 (Abnormal) Potassium, Serum 3.5 mmol/L Range: 3.5-5.2 (Normal) Sodium, Serum 137 mmol/L Range: 135-145 (Normal) BUN/Creatinine Ratio 16 (Normal) Range: 10-22 eGFR If Africn Am 100 mL/min/1.73 Comments: Note: A persistent eGFR <60 mL/min/1.73 m2 (3 months or more) mayindicate chronic kidney disease. An eGFR >59 mL/min/1.73 m2 with anelevated urine protein also may indicate chronic kidney di sease.Calculated using CKD-EPI formula. (Normal) Creatinine, Serum 0.95 mg/dL Range: 0.76-1.27 (Normal) eGFR If NonAfricn Am 87 mL/min/1.73 (Normal) BUN 15 mg/dL (Normal) Range: 8-27 Glucose, Serum 89 mg/dL (Normal) Range: 65-99 Hemoglobin A1c 5.0 % (Normal) Comments: PATIENT WAS FASTINGPERFORMED BY: [facility] Zhjxni8169 [facility] [id number] BY: Lab[address] [id number] 3:05 Range: 4.8-5.6 Comments: Increased risk for diabetes: 5.7 - 6.4 Diabetes: >6.4 Glycemic control for adults with diabetes: <7.0 :05 Lipid Panel With LDL/HDL Comments: PATIENT WAS FASTINGPERFORMED BY: [facility]ediaKessler Institute for RehabilitationOxybgp[address] [place] [address] [id number] BY: [address] [id number] Ratio LDL Cholesterol Calc 89 mg/dL (Normal) Range: 0-99 LDL/HDL Ratio 0.7 {ratio_units} (Normal) Range: 0.0-3.6 VLDL Cholesterol Micah 18 mg/dL (Normal) Range: 5-40 Cholesterol, Total 241 mg/dL (Abnormal) Range: 100-199 HDL Cholesterol 134 mg/dL (Normal) Comments: Results confirmed ondilution.According to ATP-III Guidelines, HDL-C >59 mg/dL is considered anegative risk factor for CHD. Triglycerides 92 mg/dL (Normal) Range: 0-149 :05 Panel [id number] Comments: PATIENT WAS FASTINGPERFORMED BY: [employer] [facility] [id number] BY: [address] [id number] HIV 1/O/2 Abs, Non Reactive Qual (Normal) HIV 1/O/2 <1.00 (Normal) Comments: Index Value: Specimen reactivity relative to the negative cutoff. Abs-Index Value : TSH 0.699 {uIU/mL} Comments: PATIENT WAS FASTINGPERFORMED BY: ClupediaDr. Dan C. Trigg Memorial HospitalXwixwo9[address] [place] [address] [id number] BY: [address] [id number] (Normal) Range: 0.450-4.500 :05 Vitamin B1 (Thiamine), Comments: PATIENT WAS FASTINGPERFORMED BY: [facility] [id number] BY: [facility]Co[address] [id number] Blood Vit. B1, Whole Blood 150.6 nmol/L Range: 66.5-200.0 (Normal) Vitamin B12 >1999 pg/mL Comments: PATIENT WAS FASTINGPERFORMED BY: LabCoKessler Institute for RehabilitationLhqxqp0334 [place] [id number] BY: [facility] [id number] :05 (Abnormal) Range: 211-946 :10 CBCD,SMEAR DIFF BAND 2 % (Normal) Range: 0-5 EOS 1 % (Normal) Range: 0-5 LYMPH 30 % (Normal) Range: 19-41 MONOCYTE 3 % (Normal) Range: 0-10 PLT EST SeeNote (Normal) Comments: Result: ADEQUATE RED CELL MORPH SeeNote {NORMAL} (Normal) Comments: Result: NORM C+C SEGS 64 % (Normal) Range: 47-70 ABSOLUTE NEUT 3.8 3/uL (Normal) Range: 2.0-7.7 CELLS COUNTED 100 (Normal) HCT 44.6 % (Normal) Range: 40-54 HGB 15.7 g/dL (Normal) Range: 14.0-18.0 MCH 34.3 pg (Abnormal) Range: 27.0-32.0 MCHC 35.3 g/dL (Normal) Range: 32-36 MCV 97.1 fL (Abnormal) Range: 80-94 PLT 172 K/mm3 (Normal) Range: 150-450 RBC 4.59 {M/mm3} (Abnormal) Range: 4.6-6.2 RDW 12.6 % (Normal) Range: 11.6-14.6 WBC 5.0 K/mm3 (Normal) Range: 4.4-11.0 :10 COMP METABOLIC ALK P 72 U/L (Normal) Range: 50-136 ALT 78 U/L (Normal) Range: 12-78 AST 55 U/L (Abnormal) Range: 15-37 CL 102 mmol/L (Normal) Range: 98-107 CO2 24.0 mmol/L (Normal) Range: 21.0-32.0 GAP 12 (Normal) Range: 5-15 K 3.8 mmol/L (Normal) Range: 3.5-5.1 NA 138 mmol/L (Normal) Range: 136-145 T BILI 0.80 mg/dL (Normal) Range: 0.00-1.00 A/G 1.1 {RATIO} (Normal) Range: 0.9-2.4 ALB 3.9 g/dL (Normal) Range: 3.4-5.0 BUN/CRE 13.8 {RATIO} (Normal) Range: 10-20 CA 8.5 mg/dL (Normal) Range: 8.5-10.1 EST GFR - AA 127 mL/min (Normal) GLOB 3.6 g/dL (Normal) Range: 2.7-4.2 T PROT 7.5 g/dL (Normal) Range: 6.4-8.2 BUN 11 mg/dL (Normal) Range: 7-18 CREAT,SERUM 0.8 mg/dL (Normal) Range: 0.8-1.3 EST GFR 105 mL/min (Normal) GLU 110 mg/dL (Normal) Range: 70-110 Comments: Fasting Glucose result from 110 to <126 mg/dLsuggests IMPAIRED HOMEOSTASIS per A.D.A. criteria. :10 LIPID CHOL 200 mg/dL (Normal) Comments: <200 mg/dL Lkjnrhecm493-955 mg/dL Borderline>240 mg/dL High Risk HDL 87 mg/dL (Normal) Comments: Reference RangeHDL <40 mg/dL Low HDL CholesterolHDL >or= 60 mg/dL High HDL Cholesterol LDL 99 mg/dL (Normal) Range: 0-130 TRIG 72 mg/dL (Normal) Comments: Serum Triglycerides Reference IntervalNormal <150 mg/dLBorderline high 150 - 199 mg/dLHigh 200 - 499 mg/ dLVery High > or = 500 mg/dL VLDL 14 mg/dL (Normal) Range: 5-40 :1 TSH 0.40 {uIU/mL} Range: 0.358-3.74 0 (Normal) :1 VIT D,25 80687 20.5 ng/mL (Abnormal) Range: 32.0-100.0 0 Comments: Recent studies consider the lower limit of 32.0 ng/mL to nati threshold for optimal health.Edwin ESPINOZA. J Nutr. 2004;135(2):317-22.Performed at: [place] [address]Lab Director: Adrienne Gil MD, Phone: [phone] 19-Qvk-28638:1 VITAMIN B12 1239 pg/mL (Normal) Range: 254-1320 0 Comments: There is a low frequency possibility that high titers ofintrinsic blocking antibodies may not be completelyinactivated during the reaction pretreatment stepof this testing method. If test results are in conflictwith the clinical diagnosis, patient should be testedfor the presence of intrinsic factor blocking antibodies. 10-Sub-036792:24 Urinalysis, Office (33607) UA - LEUKOCYTE Negative (Normal) ESTERASE UA - NITRITE Negative (Normal) URINE UROBILINGN RICH Normal mg/dL TIMED (Normal) UA - PROTEIN Negative mg/dL (Normal) UA - PH 7.0 (Normal) UA - BLOOD Negative (Normal) UA - SPECIFIC GRAVITY 1.005 (Normal) UA - KETONES Negative mg/dL (Normal) UA - BILIRUBIN Negative (Normal) UA - GLUCOSE Negative (Normal) : CCP Antibodies IgG/IgA 3 {units} (Normal) Comments: PATIENT WAS FASTINGPERFORMED BY: [facility] [id number] 29 Range: 0-19 Comments: Negative <20 Weak positive 20 - 39 Moderate positive 40 - 59 Strong positive >59 : Comment: SPRCS (Normal) Comments: PATIENT WAS FASTINGPERFORMED BY: [facility] [id number] 29 Comments: Effective August 25, 2009 order code 325801 CCP IgGAntibodies has been replaced due to an updated reagentversion 3.1. For this reason [facility] has provided youwith a new order code 384541 CCP Antibodies IgG/IgA. :29 PSA (PROSTATE SPECIFIC Comments: PATIENT WAS FASTINGPERFORMED BY: [address] [id number] ANTIGEN) (V76.44) Prostate Specific Ag, 1.0 ng/mL (Normal) Range: 0.0-4.0 Serum Comments: Mónica ECLIA methodology. .According to the [place] [employer], Serum PSA shoulddecrease and remain at undetectable levels after radicalprostatectomy. The AUA defines biochemical recurrence as an initialPSA value 0.2 ng/mL or greater followed by a subsequent confirmatoryPSA value 0.2 ng/mL or greater.Values obtained with d ifferent assay methods or kits cannot be usedinterchangeably. Results cannot be interpreted as absolute evidenceof the presence or absence of malignant disease. :29 LIPID PANEL (93901) Comments: PATIENT WAS FASTINGPERFORMED BY: Cl[facility] [id number] Cholesterol, Total 240 mg/dL (Abnormal) Range: 100-199 HDL Cholesterol 85 mg/dL (Normal) Comments: According to ATP-III Guidelines, HDL-C >59 mg/dL is considered anegative risk factor for CHD. LDL Cholesterol Calc 142 mg/dL (Abnormal) Range: 0-99 LDL/HDL Ratio 1.7 {ratio_units} (Normal) Range: 0.0-3.6 Triglycerides 63 mg/dL (Normal) Range: 0-149 VLDL Cholesterol Micah 13 mg/dL (Normal) Range: 5-40 :29 C-REACTIVE PROTEIN (56017) Comments: PATIENT WAS FASTINGPERFORMED BY: [facility] [id number] C-Reactive Protein, Quant 0.8 mg/L (Normal) Range: 0.0-4.9 :29 SED RATE ERYTHROCYTE (73383) Comments: PATIENT WAS FASTINGPERFORMED BY: [facility] [id number] Sedimentation Rate-Westergren 2 mm/h (Normal) Range: 0-20 :29 ALISON (ANTINUCLEAR ANTIBODY) Comments: PATIENT WAS FASTINGPERFORMED BY: [facility] [id number] (82640) ALISON Direct Negative (Normal) :29 CBC WITH MANUAL DIFF (36360) Comments: PATIENT WAS FASTINGClinical Information: [id number] PERFORMED BY: BN LabCoHealth[facility] Toms RiverSkfchgwsqy9630 [facility] [id number] Baso (Absolute) 0.1 {x10E3/uL} (Normal) Range: 0.0-0.2 Basos 1 % (Normal) Range: 0-3 Eos 1 % (Normal) Range: 0-7 Eos (Absolute) 0.1 {x10E3/uL} (Normal) Range: 0.0-0.4 Hematocrit 45.1 % (Normal) Range: 36.0-50.0 Hemoglobin 15.9 g/dL (Normal) Range: 12.5-17.0 Lymphs 20 % (Normal) Range: 14-46 Lymphs (Absolute) 1.2 {x10E3/uL} (Normal) Range: 0.7-4.5 MCH 34.2 pg (Abnormal) Range: 27.0-34.0 MCHC 35.2 g/dL (Normal) Range: 32.0-36.0 MCV 97 fL (Normal) Range: 80-98 Monocytes 6 % (Normal) Range: 4-13 Monocytes(Absolute) 0.3 {x10E3/uL} (Normal) Range: 0.1-1.0 Neutrophils 72 % (Normal) Range: 40-74 Neutrophils (Absolute) 4.2 {x10E3/uL} (Normal) Range: 1.8-7.8 Platelets 179 {x10E3/uL} (Normal) Range: 140-415 RBC 4.64 {x10E6/uL} (Normal) Range: 4.10-5.60 RDW 13.2 % (Normal) Range: 11.7-15.0 WBC 5.8 {x10E3/uL} (Normal) Range: 4.0-10.5 05-Nov-20098:29 METABOLIC PANEL, COMPREHENSIVE Comments: PATIENT WAS FASTINGPERFORMED BY: [facility]CoArg[facility] Yiietpolcc1039 [facility] [id number] (70210) A/G Ratio 1.5 (Normal) Range: 1.1-2.5 Albumin, Serum 4.3 g/dL (Normal) Range: 3.5-5.5 Alkaline Phosphatase, S 68 [iU]/L (Normal) Range: 25-150 ALT (SGPT) 39 [iU]/L (Normal) Range: 0-55 AST (SGOT) 33 [iU]/L (Normal) Range: 0-40 Bilirubin, Total 1.4 mg/dL (Abnormal) Range: 0.1-1.2 BUN 12 mg/dL (Normal) Range: 5-26 BUN/Creatinine Ratio 14 (Normal) Range: 8-27 Calcium, Serum 9.4 mg/dL (Normal) Range: 8.5-10.6 Carbon Dioxide, Total 19 mmol/L (Abnormal) Range: 20-32 Chloride, Serum 103 mmol/L (Normal) Range: 97-108 Creatinine, Serum 0.83 mg/dL (Normal) Range: 0.76-1.27 eGFR >59 mL/min/1.73 (Normal) eGFR AfricanAmerican >59 mL/min/1.73 Comments: Note: Persistent reduction for 3 months or more in an eGFR<60 mL/min/1.73 m2 defines CKD. Patients with eGFR values>/=60 mL/min/1.73 m2 may also have CKD if evidence of persistentproteinuria is (Normal) present. Additional information may be found [email or web address]. Globulin, Total 2.8 g/dL (Normal) Range: 1.5-4.5 Glucose, Serum 114 mg/dL (Abnormal) Range: 65-99 Potassium, Serum 3.7 mmol/L (Normal) Range: 3.5-5.2 Protein, Total, Serum 7.1 g/dL (Normal) Range: 6.0-8.5 Sodium, Serum 140 mmol/L (Normal) Range: 135-145 :29 RHEUMATOID FACTOR-QUANT ([id number]) Comments: PATIENT WAS FASTINGPERFORMED BY: [facility] [address] [id number] RA Latex Turbid. 8.4 {IU/mL} (Normal) Range: 0.0-13.9 :29 TSH (10815) Comments: PATIENT WAS FASTINGPERFORMED BY: [facility] [address] [id number] TSH 0.661 {uIU/mL} (Normal) Range: 0.450-4.500 32-Zch-341552:30 RIBS,UNI,MIN 3V,W/PA CHEST(MT) Radiology Report See Note (Normal) Comments: Exam Number: [id number] FRONTAL CHEST AND LEFT RIBS CLINICAL HISTORY Injured while mowing grass on Tuesday. Was hit with a pole in thelower left ribs. The cardiomediastinal silhouette an d pulmonary vessels are withinnormal limits. There is mild unwinding of the aorta. There is a linear density in the right lung base, consistent withsubsegmental atelectasis. There are fine linear densities in t he leftlung base, suggestive of scarring. Otherwise, the lungs and pleuralbases are clear. There are 4 additional views of the ribs on the left side. Nodisplaced rib fractures are identified. There is no evidence of adestructive bony lesion. IMPRESSION 1. Chronic changes in the lung bases. No acute cardiopulmonarydisease. 2. Possible subsegmental atelectasis in the right lung base. 3. Neg ative for displaced rib fracture. Reported By: Pollo Lal M.D. :47 PSA (PROSTATE SPECIFIC Comments: PATIENT NOT FASTINGPERFORMED BY: [facility] [id number] ANTIGEN) (V76.44) Prostate Specific Ag, Serum 1.6 ng/mL (Normal) Range: 0.0-4.0 Comments: GuestSpanIA methodology. .According to the [place] [employer], PSA should beundetectable after radical prostatectomy. A PSA of less than0.5 ng/mL (or undetectable) is not likely to be associated withdisease recurrence within five years of treatment.Values obtained with different assay methods or kits cannot be usedinterchang eably. Results cannot be interpreted as absolute evidenceof the presence or absence of malignant disease. :47 TSH ([id number]) Comments: PATIENT NOT FASTINGPERFORMED BY: [facility] [id number] TSH 0.463 {uIU/mL} (Normal) Range: 0.450-4.500 :47 CBC (Auto) (01809) Comments: PATIENT NOT FASTINGPERFORMED BY: [facility] [id number] Hematocrit 47.6 % (Normal) Range: 36.0-50.0 Hemoglobin 16.6 g/dL (Normal) Range: 12.5-17.0 MCH 33.6 pg (Normal) Range: 27.0-34.0 MCHC 34.8 g/dL (Normal) Range: 32.0-36.0 MCV 96 fL (Normal) Range: 80-98 Platelets 196 {x10E3/uL} (Normal) Range: 140-415 Comments: Please note reference interval change RBC 4.94 {x10E6/uL} (Normal) Range: 4.10-5.60 RDW 12.7 % (Normal) Range: 11.7-15.0 WBC 5.3 {x10E3/uL} (Normal) Range: 4.0-10.5 :47 Metabolic Panel, Comprehensive Comments: PATIENT NOT FASTINGClinical Information: ADD DRAW FEE [id number] ADD J [id number] PERFORMED BY: [facility] [address] [id number] ([id number]) A/G Ratio 1.4 (Normal) Range: 1.1-2.5 Albumin, Serum 4.4 g/dL (Normal) Range: 3.5-5.5 Alkaline Phosphatase, S 89 [iU]/L (Normal) Range: 25-150 ALT (SGPT) 39 [iU]/L (Normal) Range: 0-55 AST (SGOT) 31 [iU]/L (Normal) Range: 0-40 Bilirubin, Total 1.3 mg/dL (Abnormal) Range: 0.1-1.2 BUN 14 mg/dL (Normal) Range: 5-26 BUN/Creatinine Ratio 16 (Normal) Range: 8-27 Calcium, Serum 9.7 mg/dL (Normal) Range: 8.5-10.6 Carbon Dioxide, Total 20 mmol/L (Normal) Range: 20-32 Chloride, Serum 103 mmol/L (Normal) Range: 97-108 Creatinine, Serum 0.88 mg/dL (Normal) Range: 0.76-1.27 eGFR >59 mL/min/1.73 (Normal) eGFR AfricanAmerican >59 mL/min/1.73 Comments: Note: Persistent reduction for 3 months or more in an eGFR<60 mL/min/1.73 m2 defines CKD. Patients with eGFR values>/=60 mL/min/1.73 m2 may also have CKD if evidence of persistentproteinuria is (Normal) present. Additional information may be found [email or web address]. Globulin, Total 3.1 g/dL (Normal) Range: 1.5-4.5 Glucose, Serum 107 mg/dL (Abnormal) Range: 65-99 Potassium, Serum 4.4 mmol/L (Normal) Range: 3.5-5.2 Protein, Total, Serum 7.5 g/dL (Normal) Range: 6.0-8.5 Sodium, Serum 142 mmol/L (Normal) Range: 135-145 :47 Lipid Panel (28283) Comments: PATIENT NOT FASTINGPERFORMED BY: [employer] [address] [id number] Cholesterol, Total 199 mg/dL (Normal) Range: 100-199 Comment SPRCS (Normal) Comments: If initial LDL-cholesterol result is >100 mg/dL, assess forrisk factors. HDL Cholesterol 84 mg/dL (Normal) Comments: According to ATP-III Guidelines, HDL-C >59 mg/dL is considered anegative risk factor for CHD. LDL Cholesterol Calc 103 mg/dL (Abnormal) Range: 0-99 LDL/HDL Ratio 1.2 {ratio_units} (Normal) Range: 0.0-3.6 Triglycerides 60 mg/dL (Normal) Range: 0-149 VLDL Cholesterol Micah 12 mg/dL (Normal) Range: 5-40 :47 Methylmalonic acid, serum 04818 Comments: PATIENT NOT FASTINGPERFORMED BY: [facility] [id number] Methylmalonic Acid, Serum 225 nmol/L (Normal) Range: 73-376 Comments: The reference range for methylmalonic acid has been set at +3sd abovethe mean for healthy blood bank donors. In the clinical assessment ofpatients with megaloblastic anemias a cutoff of +3sd provides gr eaterspecificity in the diagnosis of the vitamin deficiency states,despite the sacrifice of some sensitivity. :47 Vitamin B-12 (cyanocobalamin) Comments: PATIENT NOT FASTINGPERFORMED BY: CAD[facility]CEton1447 [facility] [id number] ([id number]) Vitamin B12 256 pg/mL (Normal) Range: 211-911 86-Vms-478994:30 Metabolic Panel, Basic Comments: PATIENT NOT FASTINGClinical Information: ADD DRAW FEE [id number] ADD J 41280 PERFORMED BY: [facility] Sejznw3538 [facility] [id number] ([id number]) BUN 13 mg/dL (Normal) Range: 5-26 BUN/Creatinine Ratio 16 (Normal) Range: 8-27 Calcium, Serum 9.8 mg/dL (Normal) Range: 8.5-10.6 Carbon Dioxide, Total 22 mmol/L (Normal) Range: 20-32 Chloride, Serum 103 mmol/L (Normal) Range: 97-108 Creatinine, Serum 0.80 mg/dL (Normal) Range: 0.76-1.27 Glom Filt Rate, Est >59 mL/min/1.73 Range: 60-137 (Normal) Comments: EFFECTIVE SEPTEMBER 23, 2008 the reference interval on 'Glom Filt Rate, Est' and 'If -[place]' will be changing to >59 mL/min/1.73. Glucose, Serum 86 mg/dL (Normal) Range: 65-99 If -[place] >59 mL/min/1.73 Range: 60-137 (Normal) Comments: Note: Persistent reduction for 3 months or more in an eGFR<60 mL/min/1.73 m2 defines CKD. Patients with eGFR values>/=60 mL/min/1.73 m2 may also have CKD if evidence of persistentproteinuria is present. Additional information may be found [email or web address]. Potassium, Serum 4.2 mmol/L (Normal) Range: 3.5-5.2 Sodium, Serum 139 mmol/L (Normal) Range: 135-145 47-Jsd-87274:01 BMP BUN 13 mg/dL (Normal) Range: 7-18 BUN/CRE 16.3 {RATIO} (Normal) Range: 10-20 CA 8.6 mg/dL (Normal) Range: 8.5-10.1 CL 101 mmol/L (Normal) Range: 98-107 CO2 26.7 mmol/L (Normal) Range: 21.0-32.0 CREAT,SERUM 0.8 mg/dL (Normal) Range: 0.8-1.3 GAP 8 (Normal) Range: 5-15 GLU 101 mg/dL (Normal) Range: 70-110 K 3.6 mmol/L (Normal) Range: 3.5-5.1 NA 136 mmol/L (Normal) Range: 136-145 :01 CBCD BASO% 0.5 % (Normal) Range: 0-1 EO% 2.3 % (Normal) Range: 0-5 HCT 46.5 % (Normal) Range: 40-54 HGB 16.5 g/dL (Normal) Range: 14.0-18.0 LY% 23.3 % (Normal) Range: 19-41 MCH 32.6 pg (Abnormal) Range: 27.0-32.0 MCHC 35.4 g/dL (Normal) Range: 32-36 MCV 92.0 fL (Normal) Range: 80-94 MONO% 7.6 % (Normal) Range: 0-10 MPV 8.6 fL (Normal) Range: 6.5-12.0 NEUT% 66.3 % (Normal) Range: 47-70 PLT 178 K/mm3 (Normal) Range: 150-450 RBC 5.05 {M/mm3} (Normal) Range: 4.6-6.2 RDW 12.2 % (Normal) Range: 11.6-14.6 WBC 5.1 K/mm3 (Normal) Range: 4.4-11.0 :01 VITAMIN B12 250 pg/mL (Normal) Range: 211-911 :49 CHEST, PA AND LATERAL Radiology Report See Note (Normal) Comments: Exam Number: [id number] PA AND LATERAL CHEST HISTORY Being done for cough. Cardiac configuration is normal. There are moderate emphysematouschanges. There is some tortuosity of the aortic arch. It is unchanged from April 14, 2007. There are mild to moderate emphysematouschanges. IMPRESSION1. No acute change noted in the lungs. 2. Little if any change from April 14, 2007. Reported By: DOMENIC PANCHAL M.D. :28 PSA (PROSTATE SPECIFIC Comments: PATIENT WAS FASTINGPERFORMED BY: [facility] [id number] [facility] [id number] ANTIGEN) Prostate-Specific Ag, Serum 0.5 ng/mL (Normal) Range: 0.0-4.0 Comments: [facility] methodology :28 Vitamin B-12 (cyanocobalamin) Comments: PATIENT WAS FASTINGPERFORMED BY: [facility] Rtxlvx0653 [facility] [id number] ([id number]) Vitamin B12 283 pg/mL (Normal) Range: 211-911 :28 C-REACTIVE PROTEIN (16608) Comments: PATIENT WAS FASTINGPERFORMED BY: [facility]6370 [facility] [id number] C-Reactive Protein, Quant 0.6 mg/L (Normal) Range: 0.0-4.9 :28 SED RATE ERYTHROCYTE ([id number]) Comments: PATIENT WAS FASTINGPERFORMED BY: [facility] HospitalCsqzjh0782 [facility] [id number] Sedimentation Rate-Westergren 2 mm/h (Normal) Range: 0-20 :28 RHEUMATOID FACTOR-QUANT (18829) Comments: PATIENT WAS FASTINGPERFORMED BY: [facility] Gpitwt2949 [facility] [place] [id number] RA Latex Turbid. 5.2 {IU/mL} (Normal) Range: 0.0-13.9 :28 TSH (87694) Comments: PATIENT WAS FASTINGPERFORMED BY: [facility] Apkzuz8599 [facility] [place] [id number] TSH 0.436 {uIU/mL} (Normal) Range: 0.350-5.500 :28 ALISON (ANTINUCLEAR ANTIBODY) Comments: PATIENT WAS FASTINGPERFORMED BY: [facility] Hnngsb0755 [facility] [place] [id number] ([id number]) Antinuclear Antibodies Direct 23 AU/mL (Normal) Range: 0-99 Comments: Negative <100 Equivocal 100 - 120 Positive >120 :28 CBC WITH MANUAL DIFF ([id number]) Comments: PATIENT WAS FASTINGClinical Information: ADD DRAW FEE [id number] ADD J 00653 PERFORMED BY: SATHISH [facility] Lguorp6344 [facility] [id number] Baso (Absolute) 0.0 {x10E3/uL} (Normal) Range: 0.0-0.2 Basos 0 % (Normal) Range: 0-3 Eos 1 % (Normal) Range: 0-7 Eos (Absolute) 0.1 {x10E3/uL} (Normal) Range: 0.0-0.4 Hematocrit 46.4 % (Normal) Range: 36.0-50.0 Hemoglobin 16.3 g/dL (Normal) Range: 12.5-17.0 Lymphs 22 % (Normal) Range: 14-46 Lymphs (Absolute) 1.3 {x10E3/uL} (Normal) Range: 0.7-4.5 MCH 33.4 pg (Normal) Range: 27.0-34.0 MCHC 35.2 g/dL (Normal) Range: 32.0-36.0 MCV 95 fL (Normal) Range: 80-98 Monocytes 5 % (Normal) Range: 4-13 Monocytes(Absolute) 0.3 {x10E3/uL} (Normal) Range: 0.1-1.0 Neutrophils 72 % (Normal) Range: 40-74 Neutrophils (Absolute) 4.2 {x10E3/uL} (Normal) Range: 1.8-7.8 Platelets 210 {x10E3/uL} (Normal) Range: 140-415 RBC 4.89 {x10E6/uL} (Normal) Range: 4.10-5.60 RDW 13.1 % (Normal) Range: 11.7-15.0 WBC 5.8 {x10E3/uL} (Normal) Range: 4.0-10.5 :28 METABOLIC PANEL, COMPREHENSIVE Comments: PATIENT WAS FASTINGPERFORMED BY: SATHISH [facility]CoK[facility] RehabilitationRybqaj6650 [facility] [id number] ([id number]) A/G Ratio 1.6 (Normal) Range: 1.1-2.5 Albumin, Serum 4.5 g/dL (Normal) Range: 3.5-5.5 Alkaline Phosphatase, S 67 [iU]/L (Normal) Range: 25-150 ALT (SGPT) 30 [iU]/L (Normal) Range: 0-55 AST (SGOT) 26 [iU]/L (Normal) Range: 0-40 Bilirubin, Total 0.9 mg/dL (Normal) Range: 0.1-1.2 BUN 12 mg/dL (Normal) Range: 5-26 BUN/Creatinine Ratio 13 (Normal) Range: 8-27 Calcium, Serum 9.3 mg/dL (Normal) Range: 8.5-10.6 Carbon Dioxide, Total 24 mmol/L (Normal) Range: 20-32 Chloride, Serum 105 mmol/L (Normal) Range: 96-109 Creatinine, Serum 0.9 mg/dL (Normal) Range: 0.5-1.5 Globulin, Total 2.9 g/dL (Normal) Range: 1.5-4.5 Glucose, Serum 111 mg/dL (Abnormal) Range: 65-99 Potassium, Serum 4.6 mmol/L (Normal) Range: 3.5-5.5 Protein, Total, Serum 7.4 g/dL (Normal) Range: 6.0-8.5 Sodium, Serum 140 mmol/L (Normal) Range: 135-148 :30 VITAMIN B12 252 pg/mL (Normal) Range: 211-911 :56 CHEST, PA AND LATERAL Radiology Report See Note (Normal) Comments: Exam Number: [id number] 2 VIEWS OF CHEST PA and lateral views of the chest [facility]. There is mild cardiomegaly. There is tortuosityof the aorta. There is n o acute infiltrate, area of consolidation,pleural effusion or vascular congestion identified. Bony structuresare grossly intact. IMPRESSIONNo acute pulmonary abnormality is identified. Reported By: SANJIV MCCOLLUM M.D. : VIT B12 1503 170 pg/mL (Abnormal) Range: 211-911 51 Comments: Performed At: [address] [id number] :19 CBC HCT 46.1 % (Normal) Range: 40-54 HGB 16.3 g/dL (Normal) Range: 14.0-18.0 MCH 32.7 pg (Abnormal) Range: 27.0-32.0 MCHC 35.5 g/dL (Normal) Range: 32-36 MCV 92.3 fL (Normal) Range: 80-94 PLT 175 K/mm3 (Normal) Range: 150-450 RBC 4.99 {M/mm3} (Normal) Range: 4.6-6.2 RDW 12.4 % (Normal) Range: 11.6-14.6 WBC 4.2 K/mm3 (Abnormal) Range: 4.4-11.0 :19 COMP METABOLIC A/G 1.1 {RATIO} (Normal) Range: 0.9-2.4 ALB 3.7 g/dL (Normal) Range: 3.4-5.0 ALK P 65 U/L (Normal) Range: 50-136 ALT 62 [iU]/L (Normal) Range: 30-65 AST 34 U/L (Normal) Range: 15-37 BUN 14 mg/dL (Normal) Range: 7-18 BUN/CRE 14.0 {RATIO} (Normal) Range: 10-20 CA 8.7 mg/dL (Normal) Range: 8.5-10.1 CL 107 mmol/L (Normal) Range: 98-107 CO2 24.2 mmol/L (Normal) Range: 22.0-29.0 CREAT,SERUM 1.0 mg/dL (Normal) Range: 0.8-1.3 GAP 10 (Normal) Range: 5-15 GLOB 3.4 g/dL (Normal) Range: 2.3-3.5 GLU 106 mg/dL (Normal) Range: 70-110 K 3.5 mmol/L (Normal) Range: 3.5-5.1 NA 141 mmol/L (Normal) Range: 136-145 T BILI 0.94 mg/dL (Normal) Range: 0.00-1.00 T PROT 7.1 g/dL (Normal) Range: 6.4-8.2 :19 FERRITIN 130 ng/mL (Normal) Range: 3-244 :19 PFLIP CHOL 187 mg/dL (Normal) Comments: <200 mg/dL Desirable 200-240 mg/dL Borderline >240 mg/dL High Risk HDL 53 mg/dL (Normal) Comments: Reference Range HDL <40 mg/dL Low HDL Cholesterol HDL >or= 60 mg/dL High HDL Cholesterol LDL 114 mg/dL (Normal) Range: 0-130 TRIG 102 mg/dL (Normal) Comments: Serum Triglycerides Reference Interval Normal <150 mg/dL Borderline high 150 - 199 mg/dL High 200 - 499 mg/dL Very High > or = 500 mg/dL VLDL 20 mg/dL (Normal) Range: 5-40 :19 PSA,TOT SCREEN 0.68 ng/mL (Normal) Range: 0.00-4.00 Comments: This test was performed using the TPSA method for [employer] chemistry system.Values obtained with different assay methods cannot be usedinterchangably.When changing PSA assays in the course of monito ring apatient, additionaly sequential testing should be carriedout to confirm baseline values. :19 SERUM ETOH 2.5 mg/dL (Normal) Comments: The serum:whole blood ethanol ratio is approximately 1.14and varies slightly with hematocrit. Medical Alcohol reference interval and critical value innon-tolerant individuals; 50 - 100 Impairment 100 Intoxication 100 - 250 Severe Poisoning 250 - 400 Deep/possible fatal coma :19 TSH 0.51 {uIU/mL} (Normal) Range: 0.34-4.82 :19 VIT B12 1503 152 pg/mL (Abnormal) Range: 211-911 Comments: Performed At: [address] [id number] Plan of Care Name Dates Details Instructions Lupus (systemic lupus erythematosus) : Reviewed Lab Indication: Lupus (systemic lupus erythematosus) Hypertension : Reviewed Lab Indication: Hypertension Hematuria : Follow up in 3 months Indication: Hematuria BMI 27.0-27.9,adult : Eprescribed prescriptions (G8553) Indication: BMI 27.0-27.9,adult BMI 26.0-26.9,adult : Eprescribed prescriptions (G8553) Indication: BMI 26.0-26.9,adult BMI 26.0-26.9,adult : Follow up in 4 months Indication: BMI 26.0-26.9,adult Smoker : Eprescribed prescriptions (G8553) Indication: Smoker BMI 26.0-26.9,adult : Follow up in 3 months Indication: BMI 26.0-26.9,adult Fatigue, unspecified type : Eprescribed prescriptions (G8553) Indication: Fatigue, unspecified type Hip pain, left : Follow up in 4 weeks Indication: Hip pain, left BMI 27.0-27.9,adult : Eprescribed prescriptions (G8553) Indication: BMI 27.0-27.9,adult Hip pain, left : Reviewed Diagnostic Tests Indication: Hip pain, left BMI 27.0-27.9,adult : Follow up in 3 months Indication: BMI 27.0-27.9,adult Hypertension : Eprescribed prescriptions (G8553) Indication: Hypertension Smoker : Follow up in 2 weeks with [facility] Indication: Smoker Smoker : Follow up in 1 week for nurse visit BP check Indication: Smoker BMI 28.0-28.9,adult : Follow up in 3 months Indication: BMI 28.0-28.9,adult Low back pain with radiation : Eprescribed prescriptions (G8553) Indication: Low back pain with radiation Muscle spasm of back : Follow up if no improvement or if symptoms worsen Indication: Muscle spasm of back Low back pain with radiation : Low Back Pain Exercises *: lower back pain Indication: Low back pain with radiation Low back pain with radiation : Low Back Pain: lower back pain Indication: Low back pain with radiation Muscle spasm of back : Muscle Spasms *: muscle spasm Indication: Muscle spasm of back Low back pain with radiation : Follow up if no improvement or if symptoms worsen Indication: Low back pain with radiation Current smoker : Eprescribed prescriptions (G8553) Indication: Current smoker Current smoker : Follow up in 4 months gen med Indication: Current smoker BMI 28.0-28.9,adult : Eprescribed prescriptions (G8553) Indication: BMI 28.0-28.9,adult BMI 28.0-28.9,adult : Eprescribed prescriptions (G8553) Indication: BMI 28.0-28.9,adult BMI 27.0-27.9,adult : Follow up in 4 months Indication: BMI 27.0-27.9,adult Hypertension : Eprescribed prescriptions (G8553) Indication: Hypertension Fatigue : Follow up in 3 months Indication: Fatigue Fatigue : Eprescribed prescriptions (G8553) Indication: Fatigue Bradycardia : Follow up in 2 weeks Indication: Bradycardia Fatigue : Eprescribed prescriptions (G8553) Indication: Fatigue Nocturnal leg cramps : Eprescribed prescriptions (G8553) Indication: Nocturnal leg cramps Central obesity : Diet, Exercise, and Wt loss Indication: Central obesity Central obesity : Reviewed Diagnostic Tests Indication: Central obesity Current smoker : Follow up if no improvement or if symptoms worsen Indication: Current smoker Nocturnal leg cramps : Eprescribed prescriptions (G8553) Indication: Nocturnal leg cramps Current smoker : Follow up if no improvement or if symptoms worsen Indication: Current smoker Sebaceous cyst : Anesthesia - Lido with Epi Indication: Sebaceous cyst Sebaceous cyst : I/D Cyst/Abscess Indication: Sebaceous cyst Current smoker : Follow up for sebaceous cyst removal Indication: Current smoker Vitamin D deficiency, unspecified : Reviewed Lab Indication: Vitamin D deficiency, unspecified Need for prophylactic vaccination and inoculation against influenza (Renamed from Need for immunization against influenza) : Follow up in 2 weeks Indication: Need for prophylactic vaccination and inoculation against influenza (Renamed from Need for immunization against influenza) Abnormal lung sounds : *Antibiotic Usage Education - Male Indication: Abnormal lung sounds Abnormal lung sounds : Solu Medrol Injection/ Education Indication: Abnormal lung sounds Acute non-recurrent maxillary sinusitis : *URI Treatment Indication: Acute non-recurrent maxillary sinusitis Acute non-recurrent maxillary sinusitis : *Antibiotic Usage Education - Female Indication: Acute non-recurrent maxillary sinusitis Smoker : Follow up in 1 month Indication: Smoker Anxiety : Eprescribed prescriptions (G8553) Indication: Anxiety Preop examination : Eprescribed prescriptions (G8553) Indication: Preop examination Anxiety : Follow up if no improvement or if symptoms worsen Indication: Anxiety Otitis, left : *URI Treatment Indication: Otitis, left Otitis, left : *URI Symptoms Indication: Otitis, left Otitis, left : *Antibiotic Usage Education - Male Indication: Otitis, left Encounter for routine history and physical exam for male : fall reduction handout Indication: Encounter for routine history and physical exam for male Encounter for routine history and physical exam for male : elderly packet given Indication: Encounter for routine history and physical exam for male Encounter for routine history and physical exam for male : advance planning information Indication: Encounter for routine history and physical exam for male Encounter for routine history and physical exam for male : smoking cessation Indication: Encounter for routine history and physical exam for male Abdominal wall pain : Eprescribed prescriptions (G8553) Indication: Abdominal wall pain ETOH abuse : Eprescribed prescriptions (G8553) Indication: ETOH abuse ETOH abuse : Eprescribed prescriptions (G8553) Indication: ETOH abuse ETOH abuse : Eprescribed prescriptions (G8553) Indication: ETOH abuse ETOH abuse : Allergies: allergies Indication: ETOH abuse ETOH abuse : Eprescribed prescriptions (G8553) Indication: ETOH abuse Impaired fasting glucose : Eprescribed prescriptions (G8553) Indication: Impaired fasting glucose Anxiety : Eprescribed prescriptions (G8553) Indication: Anxiety ETOH abuse : Eprescribed prescriptions (G8553) Indication: ETOH abuse Anxiety : Eprescribed prescriptions (G8553) Indication: Anxiety ETOH abuse : Follow up if no improvement or if symptoms worsen Indication: ETOH abuse Neck pain : exercises Indication: Neck pain Visual changes : Follow up in 2 weeks Indication: Visual changes Neck pain : Muscle Spasms *: muscle Indication: Neck pain Neck pain : Eprescribed prescriptions (G8553) Indication: Neck pain Anxiety : Anxiety: emotional health Indication: Anxiety Symptoms of dehydration (Renamed from Dehydration symptoms) : Follow up if no improvement or if symptoms worsen Indication: Symptoms of dehydration (Renamed from Dehydration symptoms) Anxiety : FOLLOW UP - MAKE APPT AFTER DIAGNOSTIC TESTS Indication: Anxiety Candidiasis, mouth : FOLLOW UP IN 2 WEEKS Indication: Candidiasis, mouth Diarrhea : Abd Pain Red Flags Indication: Diarrhea Diarrhea : Diarrhea Education Indication: Diarrhea Fatigue : FOLLOW UP IN 2 MONTHS Indication: Fatigue Low back pain : exercises Indication: Low back pain Low back pain : Low Back Pain Red Flags Indication: Low back pain Irritable bowel syndrome : FOLLOW UP IN 3 MONTHS Indication: Irritable bowel syndrome Hypertension : FOLLOW UP IN 4 WEEKS Indication: Hypertension Fatigue : FOLLOW UP IN 2 WEEKS Indication: Fatigue Planned Observations CBC, Platelets & Auto Diff (34891)Indication: Testosterone deficiency On: :06 Request Comments: to be done March 2017 HEPATIC FUNCTION PANEL (33352)Indication: Testosterone deficiency On: 94-Dzu-344592:06 Request Comments: to be done March 2017 Metabolic Panel, Comprehensive (36823)Indication: Testosterone deficiency On: :06 Request Comments: to be done in March 2017 MICROALBUMIN: CREATININE RATIO (15938) AND (60675)Indication: Hypertension On: 24-Huk-510984:04 Request URINALYSIS (62992)Indication: Hypertension On: 01-Xdu-847102:02 Request Urinalysis, Office (56092)Indication: Preop examination On: 27-Jmc-614285:45 Request HgA1C , Office (47520)Indication: Impaired fasting glucose On: 20-Aad-374227:59 Request MICROALBUMIN: CREATININE RATIO (96950) AND (24240)Indication: Hypertension On: 01-Dec-20158:35 Request Urinalysis, Office (31695)Indication: Abdominal wall pain On: 51-Lqb-974251:30 Request Vitamin B-12 (cyanocobalamin) (02291)Indication: B12 deficiency On: :37 Request CALCIFIDIOL (41662) VIT D 25Indication: Vitamin D deficiency, unspecified On: :37 Request METABOLIC PANEL, COMPREHENSIVE (73237)Indication: Hypertension On: :37 Request LIPID PANEL (04898)Indication: Hypertension On: :37 Request CBC with auto diff (00767)Indication: Hypertension On: :37 Request CALCIFEDIOL (55673)Indication: Vitamin D deficiency, unspecified On: 65-Umv-868098:58 Request HgA1C , Office (88835)Indication: Impaired fasting glucose On: 31-Iov-91716:21 Request Blood Glucose , Office (48421)Indication: Impaired fasting glucose On: 00-Bqw-34119:21 Request METABOLIC PANEL, COMPREHENSIVE (37469)Indication: Hypertension On: 69-Ais-160256:15 Request LIPID PANEL (49611)Indication: Hypertension On: 14-Nbh-099424:15 Request CALCIFEDIOL (44571)Indication: Vitamin D deficiency, unspecified On: 2-Yap-195568:46 Request ALCOHOL, ETHYL (BLOOD) (42211)Indication: Alcohol abuse, continuous drinking behavior On: 03-Ivw-443833:45 Request ALCOHOL, ETHYL (BLOOD) (69226)Indication: Other and unspecified alcohol dependence, unspecified drinking behavior On: 78-Xyr-452747:19 Request CALCIUM SERUM ([id number])Indication: Dysuria On: 94-Pvn-45089:42 Request Potassium Serum (46955)Indication: Hypopotassemia On: 54-Myf-532533:36 Request Comments: recheck in 2 weeks Magnesium (91084)Indication: Hypopotassemia On: 25-Hkz-882747:36 Request Comments: re check in 2 weeks MAGNESIUM (75542)Indication: Other symptoms and signs involving general sensations and perceptions On: 4-Cqu-626088:19 Request Potassium Serum (87135)Indication: Hypopotassemia On: 5-Duy-956385:29 Request Magnesium (47794)Indication: Hypopotassemia On: 3-Vsa-824161:29 Request Phosphorus (19828)Indication: Hypopotassemia On: 6-Qfq-872647:29 Request Metabolic Panel, Basic (26184)Indication: Hypopotassemia On: 4-Ygw-003052:19 Request TSH ([id number])Indication: Abnormal TSH On: 49-Ziq-668466:45 Request ASM (ANTI SMOOTH MUSCLE ANTIBODY) ([id number])Indication: Elevated LFTs On: 16-Qtv-260042:05 Request CALCIFIDIOL (75872) VIT D 25Indication: Vitamin D deficiency, unspecified On: 39-Nci-524853:01 Request Metabolic Panel, Comprehensive ([id number])Indication: Hypertension On: 40-Nwq-350391:47 Request Drug Screen (Urine 6-Panel) (02632)Indication: Other and unspecified alcohol dependence, unspecified drinking behavior On: 86-Xpj-188271:25 Request THIAMINE (B-1) (55283)Indication: Other and unspecified alcohol dependence, unspecified drinking behavior On: 64-Mnv-169910:24 Request CBC (Auto) (14179)Indication: Fatigue On: 39-Sqh-494101:22 Request Lipid Panel (99668)Indication: Hypertension On: 94-Pbx-705060:22 Request Metabolic Panel, Comprehensive (80913)Indication: Fatigue On: 20-Rcd-970451:22 Request TSH ([id number])Indication: Anxiety On: 85-Ptq-869814:22 Request Vitamin B-12 (cyanocobalamin) (17777)Indication: B12 deficiency On: 57-Hij-027509:22 Request Hemoglobin Glyclated (HGB A1C) (25583)Indication: Candidiasis, mouth On: 83-Rbp-796748:21 Request HIV-1 ANTIBODY (13040)Indication: Candidiasis, mouth On: 68-Zsr-273173:21 Request Vitamin B-12 (cyanocobalamin) (20709)Indication: B12 deficiency On: :26 Request Metabolic Panel, Comprehensive (70563)Indication: Impaired fasting glucose On: :26 Request CALCIFEDIOL (38113)Indication: Vitamin D deficiency, unspecified On: :25 Request METABOLIC PANEL, COMPREHENSIVE (48885)Indication: Hypertension On: 50-Ncl-539260:20 Request LIPID PANEL (51227)Indication: Hypertension On: :20 Request CBC WITH MANUAL DIFF ([id number])Indication: Hypertension On: :20 Request Vitamin B-12 (cyanocobalamin) (14112)Indication: B12 deficiency On: :20 Request CALCIFIDIOL (70718) VIT D 25Indication: Fatigue On: :19 Request TSH ([id number])Indication: Fatigue On: :19 Request Metabolic Panel, Comprehensive ([id number])Indication: Impaired fasting glucose On: 90-Yez-509604:20 Request Comments: in three months (approximately) Metabolic Panel, Basic (84501)Indication: Hypertension On: 56-Cdv-577653:19 Request Comments: 2 weeks CBC (Auto) ([id number])Indication: Alcohol abuse, continuous drinking behavior On: 48-Aps-264327:17 Request Lipid Panel ([id number])Indication: Impaired fasting glucose On: 40-Psu-939176:16 Request Comments: in three months (approximately) Methylmalonic acid, serum 36024Igdvdatuve: B12 deficiency On: 75-Luh-629860:16 Request Comments: in three months (approximately) Vitamin B-12 (cyanocobalamin) (75022)Indication: B12 deficiency On: 65-Lnc-424518:16 Request Comments: in three months (approximately) CCP ANTIBODY ([id number])Indication: Pain in unspecified joint On: :56 Request HgA1C , Office (50601)Indication: Impaired fasting glucose On: 64-Wzc-609898:40 Request CARINE CULTURE-STOOL ([id number])Indication: Diarrhea On: 93-Xqv-029878:52 Request C-DIFFICILE, STOOL (62093)Indication: Diarrhea On: :52 Request LEUKOCYTE COUNT, FECAL ([id number])Indication: Diarrhea On: :52 Request OCCULT BLOOD FECES SCREEN ([id number])Indication: Diarrhea On: :52 Request OVA & PARASITE DIR SMEAR ([id number])Indication: Diarrhea On: :52 Request Metabolic Panel, Basic ([id number])Indication: Hypertension On: :05 Request Metabolic Panel, Basic ([id number])Indication: Hypertension On: :41 Request Vitamin B-12 (cyanocobalamin) (21862)Indication: B12 deficiency On: :41 Request Comments: 8 weeks CBC (Auto) ([id number])Indication: Diarrhea On: :07 Request Metabolic Panel, Basic ([id number])Indication: Diarrhea On: :07 Request VITAMIN B-12 (CYANOCOBALAMIN) (46076)Indication: B12 deficiency On: :04 Request Comments: methylmalonic acid CARINE CULTURE-STOOL ([id number])Indication: Diarrhea On: 0-Hht-372130:58 Request LEUKOCYTE COUNT, FECAL ([id number])Indication: Diarrhea On: :58 Request C.Difficile, Stool (82557)Indication: Diarrhea On: :58 Request OVA & PARASITE DIR SMEAR ([id number])Indication: Diarrhea On: 2-Rik-515906:58 Request Vitamin B-12 (cyanocobalamin) (06857)Indication: B12 deficiency On: 7-Tcl-433196:53 Request Planned Procedures Flu Vaccine (Quadrivalent) On: 08-Aug-2018 Intent 85993My: Lauryn Hanson Comments: Lot #[id number]-L dltd, IMDose prefilled syringegiven by:LAMAR Sullivan reviewed and ABN signed ELECTROCARDIOGRAM, COMPLETE On: 17-May-2018 Intent (ECG) ([id number])By: Devaughn PASTOR, Comments: nsr no acute chg Jazmine ATTENDED SLEEP STUDY ([id number])By: On: 08-May-2018 Intent Jailene Mayfield CNP E Jailene Mayfield CNP SPIROMETRY ([id number])By: Tran On: 06-Jan-2018 Intent Jailene LOTT E Jailene Mayfield CNP Comments: normal Aerosol Treatment (01069)By: On: 19-Dec-2017 Intent Sue Rooney Comments: Lungs clear after aerosol treatment. 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 Jailene Mayfield CNP Nuclear Stress Test/Stress On: 25-May-2017 Intent SPECT/AdenosineBy: Jailene Mayfield CNP, CNP, Mary E Echo CompleteBy: Tran LOTT, On: 25-May-2017 Intent Jailene Puri CNP Holter Monitor 24 hrsBy: Tran On: 16-May-2017 Intent Jailene LOTT CNP, Mary E ELECTROCARDIOGRAM, COMPLETE On: 16-May-2017 Intent (ECG) ([id number])By: Tran LOTT, Comments: sinus bradicardia and widening QT Jailene Puri CNP Ultrasound - ThyroidBy: Tran On: 29-Mar-2017 Intent Jailene LOTT CNP, Mary E Flu Vaccine (Quadrivalent) On: 12-Jan-2017 Intent 24000Tr: Jailene Mayfield CNP Comments: Lot:[id number]:05/27/17Dose:0.5mLRoute:IMSite:L DltdGiven By:JOHANNE signed Jailene Mayfield CNP PNEUM VAC ADLT/IMUMNOSPR, On: 12-Jan-2017 Intent SBC/INTRM (73226)By: Tran LOTT, Comments: Lot:[id number]:04/16/18Dose:0.5mgRoute:imSite:r armGiven By:JOHANNE signed Jailene Puri CNP Radiology - Chest- PA and On: 02-Dec-2016 Intent LatBy: Jazmine Cantor DO Spirometry ([id number])By: Devaughn On: 02-Dec-2016 Intent Jazmine PASTOR Comments: obstructive pattern Aerosol Treatment ([id number])By: On: 02-Dec-2016 Intent Jazmine Cantor DO Comments: more a/e but still inspir and exp noise - wheeze and rhonchi Solu- Medrol Injection, 125mg On: 02-Dec-2016 Intent ([id number])By: Jazmine Cantor DO Comments: solumedrollot:[id number]:05/16site:rt glutroute:IMdose:125mgD.ANN MARIE Gonzáles CHEST XRAY, PA & LATERAL On: 28-Sep-2016 Intent ([id number])By: Tran LOTT, Jailene Mayfield CONSTRUCTION INSPECTOR, Jailene Vega Radiology - ChestBy: Tran CONSTRUCTION INSPECTOR, On: 21-Sep-2016 Intent Jailene Mayfield CNP, Jailene Vega ELECTROCARDIOGRAM, COMPLETE On: 21-Sep-2016 Intent (ECG) ([id number])By: Esequiel LANGSTON, Comments: sinus rthym Safia Ear Irrigation (81277)By: On: 19-Jul-2016 Intent Jailene Mayfield CNP, CNP, Jailene Vega Wax CurettesBy: Waqar ALBARADO, On: 06-Feb-2016 Intent Jewell Kendall Ear Irrigation ([id number])By: On: 06-Feb-2016 Intent Jewell Hadley MD EKG ([id number])By: Waqar ALBARADO, On: 17-Jun-2015 Intent Jewell Kendall Comments: see scanned document of test done to see results reviewed today with patient VITAMIN B12 INJECTION On: 27-Mar-2015 Intent ([id number])By: Bethany Rehman Comments: Vitaman b12 Lot:[id number]:02/10Route:IMSite:L DeltoidDose: 1 mLgiven by:ANS INJECTION, VITAMIN B-12 On: 27-Mar-2015 Intent CYANOCOBALAMIN, UP TO 1000 MCG (Special Coverage Instructions Apply. See CIM: 45-4 and MCM: 2049) ([id number])By: Jewell Hadley MD Flu Vaccine (Quadrivalent) On: 09-Oct-2014 Intent 42536Mh: Jewell Hadley MD ADMINISTRATION OF INFLUENZA On: 09-Oct-2014 Intent VIRUS VACCINE ([id number])By: Jewell Hadley MD PHYSICAL THERAPY EVALUATION On: 17-May-2014 Intent ([id number])By: Jailene Mayfield CNP, CNP, Mary E Radiology - Cervical SpineBy: On: 17-May-2014 Intent Tran LOTT AureliaJailene Cary CNP Eprescribed prescriptions On: 26-Mar-2014 Intent (G8553)By: Jewell Hadley MD IMMUNIZATION ADMIN ([id number])By: On: 12-Feb-2013 Intent Juan IVISYoli Comments: brought own B-12 Lot #[id number], exp. 11/10. given IM in L deltoid without difficylty or c/o voiced. jq INFUSION, NORMAL SALINE On: 12-Feb-2013 Intent SOLUTION , 1000 CC (Special Comments: Normal Saline, Lot #[id number], exp. June 10 infusing without infiltrate in L AC. JQ Coverage Instructions Apply. See MCM: 2049) ([id number])By: Jailene Mayfield CNP, CNP, Mary E HYDRATION IV INFUSION, INIT On: 12-Feb-2013 Intent ([id number])By: Jailene Mayfield CNP Comments: IV initiated in: L ACwith 22 gaugenumber of attempts: X 1 Tolerated well: without difficulty or c/o voiced. Jailene Mayfield CNP Ultrasound - RenalBy: Tran On: 12-Feb-2013 Intent Jailene LOTT CNP, Mary E Nuclear Medicine - ThyroidBy: On: 28-Mar-2012 Intent Jewell Hadley MD Comments: scan and uptake B 12 Injection, 1000 mcg On: 23-Sep-2011 Intent (J3420)By: Christopher COBIAN, Carolann Comments: pt brought in own medication for administration CT - Brain/Head (IV Contrast On: 21-May-2011 Intent Needed)By: Jewell Hadley MD Comments: creat 5-19 good Ultrasound - LiverBy: Waqar On: 19-Apr-2011 Intent Jewell ALBARADO Eprescribed prescriptions On: 09-Feb-2011 Intent ([id number])By: Jailene Mayfield CNP, CNP, Mary E Wax CurettesBy: Waqar ALBARADO, On: 23-Mar-2010 Intent Jewell Kendall Ear Irrigation ([id number])By: On: 23-Mar-2010 Intent Jewell Hadley MD EKG ([id number])By: Waqar ALBARADO, On: 23-Mar-2010 Intent Jewell Kendall PHYSICAL THERAPY EVALUATION On: 21-Jan-2010 Intent ([id number])By: Tran LOTT, Aurelia Tran LOTT, Aurelia Tinapsvow-Cjj-Ksqo (40397)By: On: 07-Jul-2009 Intent Jazmine Cantor DO EKG (78254)By: Juan LANGSTON, On: 04-Apr-2009 Intent Yoli Ear Irrigation (60776)By: On: 30-Jan-2009 Intent Jewell Hadley MD Spirometry (59343)By: Waqar On: 28-Feb-2008 Intent Jewell ALBARADO Radiology - ChestBy: Waqar On: 18-Jan-2008 Intent Jewell ALBARADO B 12 Injection, 1000 mcg On: 02-Nov-2007 Intent (J3420)By: SHALINI Velazquez Comments: Lot #[id number] date:ount given:1 ml Route: IMSite given:left deltoid Given by: darryl B 12 Injection, 1000 mcg On: 22-Sep-2007 Intent (J3420)By: Christopher COBIAN, Carolann COLLECT VENOUS BLOOD, On: 25-Aug-2007 Intent VENIPUNCTURE (09705)By: Magda Viveros B 12 Injection, 1000 mcg On: 04-Aug-2007 Intent (J3420)By: Jewell Hadley MD Comments: 7319 04-05 B 12 Injection, 1000 mcg On: 21-Jul-2007 Intent (J3420)By: Martha Garcia Comments: given im in left deltoid lot#[id number] exp.04/05 B 12 Injection, 1000 mcg On: 30-Jun-2007 Intent (J3420)By: Martha Garcia Comments: lot #[id number] exp.02/03 given im in left deltoid-AW B 12 Injection, 1000 mcg On: 02-Jun-2007 Intent (J3420)By: Sue Lemus Comments: 1000mcg/ml 1 ml given im lt arm lot [id number] exp 03-06. B 12 Injection, 1000 mcg On: 22-May-2007 Intent (J3420)By: Sue Lemus Comments: donelot [id number] exp 03-06 1000mcg/ml 1 ml gien im lt deltoid. INJECTION, VITAMIN B-12 On: 04-May-2007 Intent CYANOCOBALAMIN, UP TO 1000 MCG Comments: doneLot #:Expiration date:02/03Amount given:1ccRoute: IMSite given:left deltoidGiven by: Shamika Sosa LPN (Special Coverage Instructions Apply. See CIM: 45-4 and MCM: 2048) ([id number])By: Carolann White RN 12 Injection, 1000 mcg On: 21-Apr-2007 Intent (J3420)By: SHALINI Velazquez ELECTROCARDIOGRAM, COMPLETE On: 27-Mar-2007 Intent (ECG) (31810)By: Jewell Hadley MD B 12 Injection, 1000 mcg On: 27-Mar-2007 Intent (J3420)By: Jewell Hadley MD Pulse Oximetry (67931)By: On: 27-Mar-2007 Intent Jewell Hadley MD Spirometry (00152)By: Waqar On: 27-Mar-2007 Intent Jewell ALBARADO Radiology - ChestBy: Waqar On: 27-Mar-2007 Intent Jewell ALBARADO INJECTION, VITAMIN B-12 On: 07-Mar-2007 Intent CYANOCOBALAMIN, UP TO 1000 MCG Comments: ins waiver signed, pt tolerated well (Special Coverage Instructions Apply. See CIM: 45-4 and MCM: 2048) ([id number])By: Keyla Chiu INJECTION, VITAMIN B-12 On: 18-Jan-2007 Intent CYANOCOBALAMIN, UP TO 1000 MCG (Special Coverage Instructions Apply. See CIM: 45-4 and MCM: 2048) ([id number])By: Carolann White RN INJECTION, VITAMIN B-12 On: 22-Dec-2006 Intent CYANOCOBALAMIN, UP TO 1000 MCG (Special Coverage Instructions Apply. See CIM: 45-4 and MCM: 2048) ([id number])By: Marianne Beck EKG (06761)By: Waqar ALBARADO, On: 09-Dec-2006 Intent Jewell Kendall Planned Medications INFUSION, NORMAL SALINE SOLUTION , 1000 CC Ordered: 12-Feb-2013 Pending Ciesa Jailene LOTTesJailene mccracken CNP INJECTION, METHYLPREDNISOLONE SODIUM SUCCINATE, UP TO 125 MG Ordered: 02-Dec-2016 Pending Devaughn PASTOR Jazmine Vitamin B-12 1000 MCG/ML Injection Solution Ordered: 23-Sep-2011 Pending Carolann White RN Vitamin B-12 1000 MCG/ML Injection Solution Ordered: 27-Mar-2015 Pending Waqar ALBARADO, Jewell Kendall Instructions Name Dates Details Hematuria : Patient Instructions Indication: Hematuria BMI 27.0-27.9,adult : How to access health information online Indication: BMI 27.0-27.9,adult BMI 27.0-27.9,adult : How to access health information online - Detail Indication: BMI 27.0-27.9,adult BMI 26.0-26.9,adult : How to access health information online Indication: BMI 26.0-26.9,adult BMI 26.0-26.9,adult : How to access health information online - Detail Indication: BMI 26.0-26.9,adult BMI 26.0-26.9,adult : Patient Instructions Indication: BMI 26.0-26.9,adult Smoker : How to access health information online Indication: Smoker Smoker : How to access health information online - Detail Indication: Smoker Smoker : Patient Instructions Indication: Smoker Fatigue, unspecified type : How to access health information online Indication: Fatigue, unspecified type Fatigue, unspecified type : How to access health information online - Detail Indication: Fatigue, unspecified type Fatigue, unspecified type : Patient Instructions Indication: Fatigue, unspecified type Smoker : How to access health information online Indication: Smoker Smoker : How to access health information online - Detail Indication: Smoker Smoker : Patient Instructions Indication: Smoker BMI 27.0-27.9,adult : How to access health information online Indication: BMI 27.0-27.9,adult BMI 27.0-27.9,adult : How to access health information online - Detail Indication: BMI 27.0-27.9,adult BMI 27.0-27.9,adult : Patient Instructions Indication: BMI 27.0-27.9,adult Hypertension : How to access health information online Indication: Hypertension Hypertension : How to access health information online - Detail Indication: Hypertension Hypertension : Patient Instructions Indication: Hypertension Smoker : How to access health information online Indication: Smoker Smoker : How to access health information online - Detail Indication: Smoker Smoker : Patient Instructions Indication: Smoker Low back pain with radiation : How to access health information online Indication: Low back pain with radiation Low back pain with radiation : How to access health information online - Detail Indication: Low back pain with radiation Low back pain with radiation : Patient Instructions Indication: Low back pain with radiation Current smoker : How to access health information online Indication: Current smoker Current smoker : How to access health information online - Detail Indication: Current smoker Low back pain with radiation : Patient Instructions Indication: Low back pain with radiation BMI 28.0-28.9,adult : How to access health information online Indication: BMI 28.0-28.9,adult BMI 28.0-28.9,adult : How to access health information online - Detail Indication: BMI 28.0-28.9,adult BMI 28.0-28.9,adult : Patient Instructions Indication: BMI 28.0-28.9,adult BMI 28.0-28.9,adult : How to access health information online Indication: BMI 28.0-28.9,adult BMI 28.0-28.9,adult : How to access health information online - Detail Indication: BMI 28.0-28.9,adult BMI 28.0-28.9,adult : Patient Instructions Indication: BMI 28.0-28.9,adult BMI 27.0-27.9,adult : Patient Instructions Indication: BMI 27.0-27.9,adult Hypertension : How to access health information online Indication: Hypertension Hypertension : How to access health information online - Detail Indication: Hypertension Hypertension : Patient Instructions Indication: Hypertension Fatigue : How to access health information online Indication: Fatigue Fatigue : How to access health information online - Detail Indication: Fatigue Fatigue : Patient Instructions Indication: Fatigue Fatigue : How to access health information online Indication: Fatigue Fatigue : How to access health information online - Detail Indication: Fatigue Fatigue : Patient Instructions Indication: Fatigue Nocturnal leg cramps : How to access health information online Indication: Nocturnal leg cramps Nocturnal leg cramps : How to access health information online - Detail Indication: Nocturnal leg cramps Nocturnal leg cramps : Patient Instructions Indication: Nocturnal leg cramps Nocturnal leg cramps : How to access health information online Indication: Nocturnal leg cramps Nocturnal leg cramps : How to access health information online - Detail Indication: Nocturnal leg cramps Nocturnal leg cramps : Patient Instructions Indication: Nocturnal leg cramps Testosterone deficiency : Patient Instructions Indication: Testosterone deficiency Elevated liver enzymes : DISCONTINUED - ALCOHOL, ETHYL (BLOOD) (17455) Indication: Elevated liver enzymes Elevated liver enzymes : DISCONTINUED - HEPATIC FUNCTION PANEL (73586) Indication: Elevated liver enzymes Current smoker : How to access health information online Indication: Current smoker Current smoker : How to access health information online - Detail Indication: Current smoker Current smoker : Patient Instructions Indication: Current smoker Anxiety : How to access health information online Indication: Anxiety Anxiety : How to access health information online - Detail Indication: Anxiety Anxiety : Patient Instructions Indication: Anxiety Current smoker : Patient Instructions Indication: Current smoker Preop examination : How to access health information online Indication: Preop examination Preop examination : How to access health information online - Detail Indication: Preop examination Preop examination : Patient Instructions Indication: Preop examination Anxiety : Patient Instructions Indication: Anxiety Encounter for routine history and physical exam for male : How to access health information online Indication: Encounter for routine history and physical exam for male Encounter for routine history and physical exam for male : How to access health information online - Detail Indication: Encounter for routine history and physical exam for male Encounter for routine history and physical exam for male : Patient Instructions Indication: Encounter for routine history and physical exam for male Impaired fasting glucose : How to access health information online Indication: Impaired fasting glucose Impaired fasting glucose : How to access health information online - Detail Indication: Impaired fasting glucose Impaired fasting glucose : Patient Instructions Indication: Impaired fasting glucose Abdominal wall pain : How to access health information online Indication: Abdominal wall pain Abdominal wall pain : How to access health information online - Detail Indication: Abdominal wall pain Abdominal wall pain : Patient Instructions Indication: Abdominal wall pain ETOH abuse : How to access health information online Indication: ETOH abuse ETOH abuse : How to access health information online - Detail Indication: ETOH abuse ETOH abuse : Patient Instructions Indication: ETOH abuse ETOH abuse : How to access health information online Indication: ETOH abuse ETOH abuse : How to access health information online - Detail Indication: ETOH abuse ETOH abuse : Patient Instructions Indication: ETOH abuse ETOH abuse : How to access health information online Indication: ETOH abuse ETOH abuse : How to access health information online - Detail Indication: ETOH abuse ETOH abuse : Patient Instructions Indication: ETOH abuse ETOH abuse : How to access health information online Indication: ETOH abuse ETOH abuse : How to access health information online - Detail Indication: ETOH abuse ETOH abuse : Patient Instructions Indication: ETOH abuse B12 deficiency : Patient Instructions Indication: B12 deficiency Impaired fasting glucose : How to access health information online Indication: Impaired fasting glucose Impaired fasting glucose : How to access health information online - Detail Indication: Impaired fasting glucose Impaired fasting glucose : Patient Instructions Indication: Impaired fasting glucose Anxiety : How to access health information online Indication: Anxiety Anxiety : How to access health information online - Detail Indication: Anxiety Anxiety : Patient Instructions Indication: Anxiety ETOH abuse : How to access health information online - Detail Indication: ETOH abuse Anxiety : Patient Instructions Indication: Anxiety ETOH abuse : Patient Instructions Indication: ETOH abuse Visual changes : Patient Instructions Indication: Visual changes Impaired fasting glucose : Patient Instructions Indication: Impaired fasting glucose Anxiety : Patient Instructions Indication: Anxiety Encounters Office Visit On: 09-Oct-2018 13:11 Encounter Reason: Follow up acute care visit - Note for Follow up acute care visit: Does not think he is taking wellbutrin. Asking for lorazepam, last filled Jul 27Encounter Diagnosis: BMI 27.0-27.9,adult, Smoker, End: 09-Oct-2018 13:55 Lupus (systemic lupus erythematosus), Anxiety, Hypertension, Hematuria [facility] Office Visit On: 08-Aug-2018 15:19 Encounter Reason: follow up from dr. mazariegos - found blood in urine 3-4weeks ago sent pt here for follow up , [ADDITIONAL REASON] Hematuria - Note for Hematuria: Has hematuria ??recently sent by jonas Gonzalez End: 08-Aug-2018 16:01 ested pos for ALISON and antiDNAHistory of smokingHematuria on lab and lupus NEW Encounter Diagnosis: BMI 26.0-26.9,adult, Smoker, Hematuria, Need for prophylactic vaccination and inoculation against influenza (Renamed from Need for immunizati on against influenza), Emphysema/COPD [facility] Office Visit On: 26-Jul-2018 15:15 Encounter Reason: Follow up Meds - The patient feels well with minor complaints. Patient has been compliant with instructions.Encounter Diagnosis: BMI 26.0- 26.9,adult, Smoker, Anxiety, Emphysema/COPD, Hypertension, Hip pain, left End: 26-Jul-2018 16:04 [facility] Annotation/Addendum On: 24-Jul-2018 8:08 Encounter Diagnosis: Unspecified Diagnosis End: 24-Jul-2018 8:19 [facility] Annotation/Addendum On: 21-Jul-2018 13:49 Encounter Diagnosis: Emphysema/COPD End: 21-Jul-2018 13:53 [facility] Office Visit On: 05-Jun-2018 13:38 Encounter Reason: Follow up tests - Diagnostic tests include other (labs). Note for Discuss procedure results: getting hip done by Dr. Roa Diagnosis: Fatigue, unspecified type, Smoker, BMI 26.0-26.9,adult, Anxiety, ALISON positive, End: 05-Jun-2018 14:19 Ecchymosis [facility] Office Visit On: 17-May-2018 10:01 Encounter Reason: Fatigue - No changes in management were made at the last visit. Symptoms include fatigue. Onset was gradual month(s) ago. The symptoms occur constantly. The patient describes this as severe and worsenin End: 17-May-2018 12:29 g. The patient is not currently being treated for this problem. Note for Fatigue: felt this way when he was young and had monoEncounter Diagnosis: BMI 26.0- 26.9,adult, Smoker, Fatigue, unspecified type, Anxiety [facility] Office Visit On: 08-May-2018 14:44 Encounter Reason: Fatigue - The symptoms occur constantly. Previous presentation included fatigue. Note for Fatigue: looking at taking lexapro,Feels sleepy, End: 08-May-2018 15:14 [ADDITIONAL REASON] Weight Loss - Note for Weight loss: Weight loss down not eating as much because of stress Encounter Diagnosis: BMI 27.0-27.9,adult, Smoker, Fatigue, Weight loss, Anxiety, Hip pain, left [facility] Office Visit On: 06-Mar-2018 13:16 Encounter Reason: Follow up tests - Diagnostic tests include other (labs)., [ADDITIONAL REASON] Follow up Hypertension - blood pressure range :. Note for Follow up Hypertensio End: 06-Mar-2018 14:28 n: 130's over 70's, BP machine at home was brought up here last Tuesday and readings similar. Encounter Diagnosis: Hypertension, Smoker, BMI 27.0-27.9,adult, Hip pain, left [facility] Nurse Visit On: 27-Feb-2018 13:39 Encounter Reason: Nurse procedure visit - blood pressure range : (132/70). Reason for visit: other (bp recheck).[facility] End: 27-Feb-2018 13:50 Office Visit On: 20-Feb-2018 15:27 Encounter Reason: high blood pressure - Note for high blood pressure : Elevated BP at orthopedic office and with Dr. Ribera. Diastolic 90'sTakes Exforge, End: 20-Feb-2018 16:21 [ADDITIONAL REASON] Hip Problem - Note for Hip problem: Got injection left hip but has helped, able to put clothes on now. Was told arthritis and bone on bone, but knee on left normal.Dr. Ribera gave injection and has helped Encounter Diagnosis: BMI 28.0-28.9,adult, Smoker, Hypertension, Hip pain, left [facility] Office Visit On: 06-Jan-2018 9:39 Encounter Reason: Follow up tests - Diagnostic tests include chest X-ray and X-Ray (lumbar). Note for Discuss procedure results: wanting to disuss lung, back and knee issues and smokingEncounter Diagnosis: Low back pain with radiation, End: 06-Jan-2018 10:52 Hyperinflation of lungs, Current smoker, BMI 28.0-28.9,adult, Daytime sleepiness, Gait abnormality, Left knee pain, unspecified chronicity [facility] Phone Encounter On: 22-Dec-2017 15:12 Encounter Diagnosis: Hyperinflation of lungs End: 22-Dec-2017 15:16 [facility] Office Visit On: 19-Dec-2017 13:07 Encounter Reason: Back Pain - The injury occurred 1 week(s) ago. Note for Back pain: Symptoms started about 1 week ago after shoveling snow. Lower back pain, pain is intermittent with movement. Can't get comfortable at End: 19-Dec-2017 14:50 night while sleeping due to pain. Numbness and tingling radiates down left leg. No loss of bowel or bladder function. ??Has history of left knee pain-which thinks needs to go see ortho eventually. Hasn 't tried any OTC pain relief or ice, heat therapy. Not having any burning with urination, blood in urine, or odor. Urinated before coming in. Doesn't think it is a UTI.Encounter Diagnosis: BMI 28.0-28.9,adult, Current smoker, Low back pain with radiation, Abnormal lung sounds, Muscle spasm of back, Wheeze [facility] Office Visit On: 29-Nov-2017 15:29 Encounter Reason: Testicular Mass, [ADDITIONAL REASON] refills - Need refills on meds Encounter Diagnosis: BMI 28.0-28.9,adult, Current smoker, Hypertension, Anxiety, Sebaceous cyst End: 29-Nov-2017 16:12 [facility] Office Visit On: 08-Nov-2017 14:17 Encounter Reason: Cold Symptoms - Onset was 4 day(s) ago.Encounter Diagnosis: BMI 28.0-28.9,adult, Current smoker, Upper respiratory infection End: 08-Nov-2017 22:58 [facility] Nurse Visit On: 23-Sep-2017 11:20 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 Patient has been compliant with instructions. Current medication use: no side End: 20-Sep-2017 14:22 effects, compliant with dosing regimen and considered effective by patient. Patient sleeps 7 hours per night. Impact of disease: emotional impact-moderate. Nutrition: balanced diet and supplemental vit amins. The medical issues the patient is following up for include blood sugar issues, cardiac issues, depression (alcohol abuse in remission), gastric reflux, high blood pressure, high cholesterol and o ther (IBS, RLS ). Note for Follow up for chronic medical issues: Has seen Dr. Rudd given good reportEncounter Diagnosis: Anxiety, Hypertension, BMI 27.0-27.9,adult, Need for prophylactic vaccination and inoculation against influenza (Renamed from Need for immunization against influenza), PVC (premature ventricular contraction), Nocturnal leg cramps [facility] Annotation/Addendum On: 23-Aug-2017 16:30 [facility] End: 23-Aug-2017 16:31 Office Visit On: 13-Jun-2017 13:01 Encounter Reason: Fatigue - The last clinic visit was 2 week(s) ago. Symptoms include fatigue. Onset was gradual. The symptoms occur frequently. The patient describes this as mild and unchanged. Previous presentation inc End: 13-Jun-2017 15:24 luded fatigue. Note for Fatigue: recently taking Vit D and B otc, [ADDITIONAL REASON] Follow up tests - Diagnostic tests include other (labs; holter). Date:. Encounter Diagnosis: Current smoker, BMI 28.0-28.9,adult, Fatigue, GERD (gastroesophageal reflux disease), Nocturnal leg cramps, Abnormal Holter exam, Vitamin D deficiency, unspecified [facility] Phone Encounter On: 27-May-2017 8:47 Encounter Diagnosis: Abnormal Holter exam End: 27-May-2017 8:56 [facility] Annotation/Addendum On: 25-May-2017 16:38 Encounter Diagnosis: Abnormal Holter exam End: 25-May-2017 16:42 [facility] Office Visit On: 16-May-2017 10:40 Encounter Reason: Fatigue - Symptoms include fatigue. Onset was gradual. The symptoms occur frequently. The patient describes this as mild and unchanged. Previous presentation included fatigue. Note for Fatigue: recently taking Vit D and B otc End: 16-May-2017 11:53 Encounter Diagnosis: B12 deficiency, BMI 28.0-28.9,adult, Current smoker, Fatigue, Anxiety, GERD (gastroesophageal reflux disease), Bradycardia [facility] Annotation/Addendum On: 29-Mar-2017 16:07 Encounter Diagnosis: Daytime sleepiness End: 29-Mar-2017 16:10 [facility] Office Visit On: 29-Mar-2017 15:23 Encounter Reason: Follow up tests - Diagnostic tests include other (labs). Date: (03/21/17).Encounter Diagnosis: Current smoker, BMI 29.0-29.9,adult, Nocturnal leg cramps, Abnormal thyroid stimulating hormone level End: 29-Mar-2017 16:04 [facility] Office Visit On: 21-Mar-2017 13:18 Encounter Reason: Leg Cramps, Adult - Symptoms include nocturnal leg cramps. Cramps are located in the left calf, left thigh, right calf and right thigh. There is no radiation. The patient describes the pain as aching. T End: 21-Mar-2017 13:53 he symptoms occur intermittently. The patient describes this as worsening. Previous presentation included leg cramps and nocturnal leg cramps.Encounter Diagnosis: BMI 29.0-29.9,adult, Current smoker, Nocturnal leg cramps, Central obesity [facility] Office Visit On: 28-Jan-2017 13:11 Encounter Reason: Skin Lesions - Symptoms include single skin lesion. Lesion(s) are located on the left trunk area (back). The patient describes the lesion(s) as raised. Onset was gradual. The symptoms occur constantly.Encounter Diagnosis: End: 28-Jan-2017 14:00 BMI 29.0-29.9,adult, Current smoker, Sebaceous cyst, Discomfort of back [facility] Office Visit On: 21-Jan-2017 13:35 Encounter Reason: Follow up tests - Diagnostic tests include other (labs).Encounter Diagnosis: BMI 29.0-29.9,adult, Current smoker, Vitamin D deficiency, unspecified, Sebaceous cyst, Testosterone deficiency End: 21-Jan-2017 14:20 [facility] Office Visit On: 12-Jan-2017 9:10 Encounter Reason: Follow up acute care visit - The patient feels the same. Patient has been compliant with instructions. Current medication use: no side effects. Patient sleeps 8 hours per night. The medical issues the p End: 12-Jan-2017 12:40 atient is following up for include URI. Note for Follow up acute care visit: In Dec had panic attack heart issue went to ER with work up , neg cardiac work up had negative labs and negative nuclear st ress test. ER thought stress and anxiety related . In meantime had pneumonia Encounter Diagnosis: BMI 29.0-29.9,adult, Current smoker, Anxiety, Vitamin D deficiency, unspecified, Elevated liver enzymes (790.4), Irritable bowel syndrome, Hypertension , Pneumococcal vaccination given, Need for prophylactic vaccination and inoculation against influenza (Renamed from Need for immunization against influenza) [facility] Office Visit On: 02-Dec-2016 9:43 Encounter Reason: Upper Respiratory Infection (URI) - No changes in management were made at the last visit. Symptoms include nasal congestion, runny nose, fever, chills and general malaise. Onset was sudden 1 week(s) ago End: 02-Dec-2016 11:59 . The symptoms occur constantly. The patient describes this as moderate in severity.Encounter Diagnosis: BMI 28.0-28.9,adult, Current smoker, Acute non-recurrent maxillary sinusitis, Lipoma of back, Abnormal lung sounds, Cough [facility] Office Visit On: 25-Oct-2016 7:26 Encounter Reason: Anxiety - Symptoms include anxiety, difficulty concentrating and irritability. The patient describes this as worsening. Previous presentation included difficulty concentrating and irritability.Encounter Diagnosis: End: 25-Oct-2016 13:26 BMI 29.0-29.9,adult, Smoker, Anxiety, Low serum testosterone [facility] Office Visit On: 29-Sep-2016 7:52 Encounter Reason: Pre-Op Visit - The procedure scheduled is a cyst removal from ear drum on 10/01/2016. The surgeon for the procedure will be doctor antonieta ?[facility]. Pertinent medical history includes End: 29-Sep-2016 10:56 prior anesthesia. After surgery the patient plans to recover at home with family.Encounter Diagnosis: BMI 29.0-29.9,adult, Smoker, Pneumonia, Erectile dysfunction, Anxiety [facility] Annotation/Addendum On: 28-Sep-2016 15:57 Encounter Diagnosis: Pulmonary infiltrates on CXR End: 28-Sep-2016 15:58 [facility] Annotation/Addendum On: 22-Sep-2016 8:06 Encounter Diagnosis: Pulmonary infiltrates on CXR End: 22-Sep-2016 8:22 [facility] Office Visit On: 21-Sep-2016 12:40 Encounter Reason: Pre-Op Visit - The procedure scheduled is a cyst removal from ear drum on 10/01/2016. The surgeon for the procedure will be doctor antonieta [facility]. Pertinent medical history includes pr End: 21-Sep-2016 14:19 ior anesthesia. After surgery the patient plans to recover at home with family.Encounter Diagnosis: Preop examination, Current smoker, Hypertension, GERD (gastroesophageal reflux disease), Anxiety, Erectile dysfunction, Alcohol abuse, in remission [facility] Office Visit On: 19-Jul-2016 8:05 Encounter Reason: Headache - Symptoms include typical headache features. The patient describes the pain as aching and throbbing. The symptoms occur intermittently. The headaches occur daily and last for 1 week. The patie End: 19-Jul-2016 9:17 nt describes this as improving. Previous presentation included typical headache features., [ADDITIONAL REASON] Earache - The earache has been occurring in an episodic pattern for 1 week. Each episode lasts 1 week. Encounter Diagnosis: Hypertension, Cerumen impaction, Otitis, left, Anxiety [facility] Office Visit On: 23-Apr-2016 14:28 Encounter Reason: Leg Cramps, Nocturnal - Symptoms include nocturnal leg cramps. Symptoms are located in the left calf, left thigh, right calf and right thigh. The pain radiates to the foot (left foot numb at times, alwa End: 23-Apr-2016 14:[address] Not sure if related). The patient describes the pain as aching (cramp). The symptoms occur intermittently (nightly). Previous presentation included nocturnal leg cramps.Encounter Diagnosis: Nocturnal leg cramps, Anxiety [facility] Office Visit On: 06-Feb-2016 13:45 Encounter Reason: Annual Medicare Exam - The patient had reviewed and updated the family history, medication/s, past medical history and social history. Yes the patient did have a mini mental status exam done today. The End: 06-Feb-2016 14:43 patient would like education and information on smoking cessation. The activities of daily living the patient needs help with are none. The patient has driven in past 6 months, but the patient has not h ad fecal incontinence, had urinary incontinence, missed or ran out of medications to soon, fallen in the past 6 months, gotten lost, has a medalert necklace or bracelet, put area rugs through house or p ut handrails in bathroom. The patient has completed the following preventative measures: PSA testing () and colonoscopy (2009). The patient does not have durable power of commonwealth attorney or living will. The patient has noticed nothing from the geriatic depression scale. Other providers contributing to the patient's care are gastrologist (Alek ).Encounter Diagnosis: Encounter for routine history and physical exam for male, BMI 28.0-28.9,adult, Anxiety, Impaired fasting glucose, RLS (restless legs syndrome), GERD (gastroesophageal reflux disease), Current smoker, Hypertension, Vitamin D deficiency, unspecified, B12 deficiency, Alcohol abuse, in remission, Gait abnormality, Irritable bowel syndrome, Erectile disorder, generalized, mild, Wheeze, Hearing loss of both ears due to cerumen impaction [facility] Lab Order On: 02-Dec-2015 15:51 Encounter Diagnosis: Impaired fasting glucose End: 02-Dec-2015 15:53 [facility] Office Visit On: 01-Dec-2015 8:17 Encounter Reason: Follow up for chronic medical issues - The patient feels well with no complaints, has good energy level and is sleeping well. Patient has been compliant with instructions. Current medication use: no eldon End: 01-Dec-2015 8:46 e effects, compliant with dosing regimen and considered effective by patient. Patient sleeps 7 hours per night. Impact of disease: emotional impact-moderate. Nutrition: balanced diet and supplemental vi tamins. The medical issues the patient is following up for include blood sugar issues, cardiac issues, depression (alcohol abuse in remission ), gastric reflux, high blood pressure, high cholesterol and other (IBS, RLS ).Encounter Diagnosis: Impaired fasting glucose, Current smoker, Anxiety, Weight gain (783.1), Hypertension, RLS (restless legs syndrome), GERD (gastroesophageal reflux disease), Vitamin D deficiency, unspecified, Gait abnormality, Irritable bowel syndrome, B12 deficiency , Alcohol abuse, in remission, Encounter for screening for malignant neoplasm of prostate (Renamed from Screening PSA (prostate specific antigen)) [facility] Office Visit On: 12-Aug-2015 14:50 Encounter Reason: Rib Pain - The pain is located uner the L side of my ribcage. Has been going on x 2 wks. Ok if stationary but aggravated when sneezing, coughing, or sudden movements. Without any known injury. Has not tried any OTC End: 12-Aug-2015 15:37 Encounter Diagnosis: Abdominal wall pain, B12 Deficiency (281.1), DEFICIENCY, VITAMIN D NOS (268.9), Hypertension 401.1 (Renamed from Hypertension (401.0)), Fatigue (780.79) [facility] Office Visit On: 17-Jun-2015 10:01 Encounter Reason: Follow up for chronic medical issues - The patient feels well with minor complaints and has decreased energy level. Patient has been compliant with instructions. Current medication use: no side effects End: 17-Jun-2015 11:05 and considered effective by patient. Patient sleeps 7 (Sleeps more in the day than at night and at night wakes all night with dreams and sits up talking) hours per night. Impact of disease: emotional im pact-moderate. Nutrition: balanced diet and supplemental vitamins. The medical issues the patient is following up for include blood sugar issues, cardiac issues, depression (anxiety), gastric reflux, hi gh blood pressure and other (alcohol abuse, tremors, B12 def., IBS, memory loss, elevated LFT's ).Encounter Diagnosis: ETOH abuse, Impaired fasting glucose (790.21), Irritable bowel syndrome (564.1), Disequilibrium of Gait(781.2), Restless legs syndrome (RLS) (333.94), Hypertension 401.1 (Renamed from Hypertension (401.0)), DEFICIENCY, VITAMIN D NOS (268.9), B12 Deficiency (281.1), Gerd (530.81), Anxiety (300.00), ABUSE, ALCOHOL, IN REMISSION (305.03), Weight gain (783.1) [facility] Office Visit On: 29-Apr-2015 10:57 Encounter Reason: Follow up acute care visitEncounter Diagnosis: Anxiety (300.00), ETOH abuse, Hypertension 401.1 (Renamed from Hypertension (401.0)), Gerd (530.81), DEFICIENCY, VITAMIN D NOS (268.9), B12 Deficiency (281.1) End: 29-Apr-2015 11:41 [facility] Office Visit On: 27-Mar-2015 10:09 Encounter Diagnosis: B12 Deficiency (281.1) End: 01-Apr-2015 8:05 [facility] Office Visit On: 27-Mar-2015 9:13 Encounter Reason: Follow up acute care visit - The patient improving. Patient has been compliant with instructions. Current medication use: no side effects, compliant with dosing regimen and considered effective by patie End: 27-Mar-2015 10:01 nt. Patient sleeps 7 hours per night.Encounter Diagnosis: ETOH abuse, Anxiety (300.00), Hypertension 401.1 (Renamed from Hypertension (401.0)), DEFICIENCY, VITAMIN D NOS (268.9), Chronic cough (786.2), B12 Deficiency (281.1) [facility] Office Visit On: 07-Feb-2015 9:07 Encounter Reason: Follow up acute care visit - The patient improving. Patient has been compliant with instructions. Current medication use: no side effects, compliant with dosing regimen and considered effective by patie End: 07-Feb-2015 10:14 nt. Patient sleeps 7 hours per night.Encounter Diagnosis: Gerd (530.81), Disequilibrium of Gait(781.2), Restless legs syndrome (RLS) (333.94), Impaired fasting glucose (790.21), Irritable bowel syndrome (564.1), DEFICIENCY, VITAMIN D NOS (268.9), B12 Deficiency (281.1), Anxiety (300.00), Hypertension 401.1 (Renamed from Hypertension (401.0)), ETOH abuse [facility] Office Visit On: 09-Jan-2015 8:55 Encounter Reason: Follow up acute care visit - The patient feeling better since last seen and improving. Patient has been compliant with instructions. Current medication use: no side effects, compliant with dosing regime End: 09-Jan-2015 10:07 n and considered effective by patient. Patient sleeps 7 hours per night. Impact of disease: emotional impact-mild. Nutrition: balanced diet and supplemental vitamins. The medical issues the patient is f ollowing up for include depression and other (alcohol abuse in remission ).Encounter Diagnosis: Impaired fasting glucose (790.21), B12 Deficiency (281.1), Diverticulosis (562.10), Tremors (781.0), Irritable bowel syndrome (564.1), Restless legs syndrome (RLS) (333.94), Anxiety (300.00), DEFICIENCY, VITAMIN D NOS (268.9), ETOH abuse, Gerd (530.81), Disequilibrium of Gait(781.2), Hypertension 401.1 (Renamed from Hypertension (401.0)) [facility] Phone Encounter On: 17-Dec-2014 16:56 Encounter Diagnosis: DEFICIENCY, VITAMIN D NOS (268.9) End: 17-Dec-2014 16:58 [facility] Office Visit On: 16-Dec-2014 10:15 Encounter Diagnosis: ETOH abuse, Anxiety (300.00), Hypertension 401.1 (Renamed from Hypertension (401.0)), Bruising End: 16-Dec-2014 11:01 [facility] Office Visit On: 09-Oct-2014 9:20 Encounter Reason: Follow up for chronic medical issues - The patient feels well with minor complaints and has decreased energy level. Patient has been compliant with instructions. Current medication use: no side effects End: 09-Oct-2014 10:08 and considered effective by patient. Patient sleeps 7 (Sleeps more in the day than at night and at night wakes all night with dreams and sits up talking) hours per night. Impact of disease: emotional im pact-moderate. Nutrition: balanced diet and supplemental vitamins. The medical issues the patient is following up for include blood sugar issues, cardiac issues, depression (anxiety), gastric reflux, hi gh blood pressure and other (alcohol abuse, tremors, B12 def., IBS, memory loss, elevated LFT's )., [ADDITIONAL REASON] Follow up tests - Date: (08.29.14). Encounter Diagnosis: Hypertension 401.1 (Renamed from Hypertension (401.0)), B12 Deficiency (281.1), Impaired fasting glucose (790.21), Gerd (530.81), Diverticulosis (562.10), Elevated LFT (790.6), Abnormal TSH (794.5), Hypopotassemia (276.8), Tremors (781.0), ARTHRALGIAS 719.40, Restless legs syndrome (RLS) (333.94), Visual changes, DEFICIENCY, VITAMIN D NOS (268.9), Folliculitis, Excessive thirst, Urinary frequency, ETOH abuse, Anxiety (300.00), Elevated liver enzymes (790.4), Irritable bowel syndrome (564.1), Fatigue (780.79), Disequilibrium of Gait(781.2), Memory loss (780.93), Need for prophylactic vaccination and inoculation against influenza (Renamed from Need for immunization against influenza) [facility] Office Visit On: 27-Aug-2014 8:00 Encounter Reason: Follow up acute care visit - Note for Follow up acute care visit: etoh/anxietyEncounter Diagnosis: ETOH abuse, Anxiety (300.00), Hypertension 401.1 (Renamed from Hypertension (401.0)) End: 27-Aug-2014 9:29 [facility] Office Visit On: 05-Aug-2014 8:48 Encounter Reason: Follow up acute care visit - The patient feeling better since last seen and improving. Patient has been compliant with instructions. Current medication use: no side effects, compliant with dosing regime End: 05-Aug-2014 9:41 n and considered effective by patient. Patient sleeps 7 hours per night. Impact of disease: emotional impact-moderate. Nutrition: balanced diet and supplemental vitamins. The medical issues the patient is following up for include other (alcohol abuse ).Encounter Diagnosis: ETOH abuse, Anxiety (300.00), Folliculitis, Urinary frequency, Well Male Exam (V70.0) [facility] Office Visit On: 23-Jul-2014 13:17 Encounter Reason: Follow up hospital - Reason for ER visit: note: (panic attacks and altered mental status)., [ADDITIONAL REASON] Transition into care - The patient is transitioning into care from a hospital an End: 23-Jul-2014 14:19 d a summary of care was reviewed . Note for Transition into care: Stress test loli myocardial ishcemia following with Blaire Had cardiac cath on 07-03-14 showing normal angiographically normal and EF 65% Encounter Diagnosis: Anxiety (300.00), ETOH abuse, Hypertension 401.1 (Renamed from Hypertension (401.0)), Chest pain, Excessive thirst [facility] Office Visit On: 08-Jul-2014 9:51 Encounter Reason: Transition into care - The patient is transitioning into care from a hospital and a summary of care was reviewed . Note for Transition into care: Stress test luisuewd myocardial ishcemia following with End: 08-Jul-2014 10:52 Blaire Had cardiac cath on 07-03-14 showing normal angiographically normal and EF 65% , [ADDITIONAL REASON] Follow up hospital - The patient feels well with no complaints, has good energy level and is sleeping well. Patient has been compliant with instructions. Current medication use: no side effects, compliant with dosing regimen and considered effective by patient. Hospital procedures performed were heart catherization. The hospital results of the stress test (abnormal ) were Encounter Diagnosis: Chest pain, ETOH abuse [facility] Phone Encounter On: 03-Jul-2014 11:11 Encounter Diagnosis: Unspecified Diagnosis End: 03-Jul-2014 11:18 [facility] Annotation/Addendum On: 20-May-2014 15:57 Encounter Diagnosis: Unspecified Diagnosis End: 20-May-2014 16:00 [facility] Office Visit On: 17-May-2014 8:34 Encounter Reason: Neck Pain - This condition occurred without any known injury. Symptoms include neck pain, neck stiffness, muscle spasm and shoulder pain. Symptoms are located in the right lateral neck. The pain radiate End: 17-May-2014 9:01 s to the right shoulder. The patient describes the pain as sharp and aching. Symptoms are exacerbated by turning the head to the right and turning the head to the left. Associated symptoms include heada thanh and impaired vision. The patient is not currently being treated for this problem. Note for Neck pain: No tingling arm Encounter Diagnosis: Neck pain, Visual changes [facility] Phone Encounter On: 29-Mar-2014 12:45 Encounter Diagnosis: DEFICIENCY, VITAMIN D NOS (268.9) End: 29-Mar-2014 13:14 [facility] Office Visit On: 26-Mar-2014 9:43 Encounter Reason: Follow up for chronic medical issues - The patient feels well with minor complaints and has decreased energy level. Patient has been compliant with instructions. Current medication use: no side effects End: 26-Mar-2014 16:55 and considered effective by patient. Patient sleeps 7 (Sleeps more in the day than at night and at night wakes all night with dreams and sits up talking) hours per night. Impact of disease: emotional im pact-moderate. Nutrition: balanced diet and supplemental vitamins. The medical issues the patient is following up for include blood sugar issues, cardiac issues, depression (anxiety), gastric reflux, hi gh blood pressure and other (alcohol abuse, tremors, B12 def., IBS, memory loss, elevated LFT's ).Encounter Diagnosis: Impaired fasting glucose (790.21), Hypopotassemia (276.8), B12 Deficiency (281.1), Elevated liver enzymes (790.4), Abnormal TSH (794.5), Weakness of limb, Memory loss (780.93), ARTHRALGIAS 719.40, Gerd (530.81), ABNORMAL FINDINGS NEC (796.9), Irritable bowel syndrome (564.1), Muscle spasm (728.85), Disequilibrium of Gait(781.2), Fatigue (780.79), Hypertension 401.1 (Renamed from Hypertension (401.0)), Neck pain (723.1), Restless legs syndrome (RLS) (333.94), Other and unspecified alcohol dependence, unspecified drinking behavior (303.90), Tremors (781.0), Anxiety (300.00), Elevated LFT (790.6), Diverticulosis (562.10), DEFICIENCY, VITAMIN D NOS (268.9), NONSPECIFIC FINDINGS ON EXAMINATION OF BLOOD, OTHER ABNORMAL BLOOD CHEMISTRY (790.6), Symptoms of dehydration (Renamed from Dehydration symptoms), Alcohol abuse, continuous drinking behavior (305.01), Bruising [facility] Phone Encounter On: 25-Apr-2013 10:33 Encounter Diagnosis: Elevated liver enzymes (790.4) End: 25-Apr-2013 10:41 [facility] Office Visit On: 12-Apr-2013 9:32 Encounter Reason: Follow up for chronic medical issues - The patient feels well with minor complaints and has decreased energy level. Patient has been compliant with instructions. Current medication use: no side effects End: 12-Apr-2013 10:26 and considered effective by patient. Patient sleeps 7 hours per night. Impact of disease: emotional impact-moderate. Nutrition: balanced diet and supplemental vitamins. The medical issues the patient is following up for include blood sugar issues, cardiac issues, depression (anxiety), gastric reflux, high blood pressure and other (alcohol abuse, tremors, B12 def., IBS, memory loss, elevated LFT's ).Encounter Diagnosis: Hypopotassemia (276.8), Anxiety (300.00), Impaired fasting glucose (790.21), B12 Deficiency (281.1), Other and unspecified alcohol dependence, unspecified drinking behavior (303.90), Elevated LFT (790.6), Abnormal TSH (794.5) [facility] Office Visit On: 12-Feb-2013 8:54 Encounter Reason: Urinary problems - The onset of the urinary problems has been sudden. The course has been decreasing. The urinary problems are described as mild. The urinary problem is characterized as hesitancy. There End: 12-Feb-2013 12:00 has been no associated fever / chills, back pain, nausea or blood in urine.Encounter Diagnosis: Dysuria (788.1), B12 Deficiency (281.1), Symptoms of dehydration (783.9), Tremors (781.0) [facility] Lab Order On: 24-Jul-2012 16:34 Encounter Diagnosis: Hypopotassemia (276.8) End: 24-Jul-2012 16:37 [facility] Office Visit On: 20-Jul-2012 9:36 Encounter Reason: Follow up tests - Date: (06/30/12 lab orders.). Current symptoms include abdominal pain (thinks from meds).Encounter Diagnosis: Anxiety (300.00), Other and unspecified alcohol dependence, unspecified drinking behavior (303.90), End: 20-Jul-2012 10:29 NONSPECIFIC FINDINGS ON EXAMINATION OF BLOOD, OTHER ABNORMAL BLOOD CHEMISTRY (790.6) [facility] Phone Encounter On: 04-Jul-2012 16:07 Encounter Diagnosis: ABNORMAL FINDINGS NEC (796.9) End: 04-Jul-2012 16:19 [facility] Phone Encounter On: 03-Jul-2012 18:22 Encounter Diagnosis: Hypopotassemia (276.8) End: 03-Jul-2012 18:30 [facility] Phone Encounter On: 30-Jun-2012 16:15 Encounter Diagnosis: Hypopotassemia (276.8) End: 30-Jun-2012 16:19 [facility] Office Visit On: 29-Jun-2012 11:36 Encounter Reason: Follow up for chronic medical issues - The patient feels well with minor complaints and has decreased energy level. Patient has been compliant with instructions. Current medication use: no side effects End: 29-Jun-2012 12:31 and compliant with dosing regimen. Patient sleeps 8 hours per night. Impact of disease: emotional impact-moderate. Nutrition: balanced diet and supplemental vitamins. The medical issues the patient is f ollowing up for include cardiac issues, depression (anxiety ), gastric reflux, high blood pressure and other (IBS, memory loss, B12 def., elevated lft's, vitamin d def. ).Encounter Diagnosis: Tremors (781.0), Disequilibrium of Gait(781.2), Other and unspecified alcohol dependence, unspecified drinking behavior (303.90), Abnormal TSH (794.5), DEFICIENCY, VITAMIN D NOS (268.9), B12 Deficiency (281.1), Elevated LFT (790.6), Hypertension 401.1 (Renamed from Hypertension (401.0)), Anxiety (300.00) [facility] Phone Encounter On: 07-Apr-2012 12:40 Encounter Diagnosis: Abnormal TSH (794.5) End: 07-Apr-2012 12:45 [facility] Phone Encounter On: 28-Mar-2012 13:39 Encounter Diagnosis: Abnormal TSH (794.5), Tremors (781.0), Fatigue (780.79) End: 28-Mar-2012 13:43 [facility] Office Visit On: 27-Mar-2012 14:13 Encounter Diagnosis: Anxiety (300.00), Tremors (781.0), Other and unspecified alcohol dependence, unspecified drinking behavior (303.90), DEFICIENCY, VITAMIN D NOS (268.9), Elevated LFT (790.6), Abnormal TSH (794.5) End: 27-Mar-2012 14:43 [facility] Phone Encounter On: 15-Feb-2012 8:21 Encounter Diagnosis: DEFICIENCY, VITAMIN D NOS (268.9) End: 15-Feb-2012 8:23 [facility] Office Visit On: 11-Feb-2012 10:21 Encounter Reason: Follow up Meds - The patient feels well with minor complaints, has good energy level and is sleeping well. Patient has been compliant with instructions. Current medication use: no side effects, complian End: 11-Feb-2012 10:50 t with dosing regimen and considered effective by patient. Patient sleeps 5 hours per night. Impact of disease: emotional impact-mild. Nutrition: balanced diet and supplemental vitamins.Encounter Diagnosis: Other and unspecified alcohol dependence, unspecified drinking behavior (303.90), Anxiety (300.00), Elevated LFT (790.6), Hypertension 401.1 (Renamed from Hypertension (401.0)), ringworm 110.9 [facility] Office Visit On: 07-Jan-2012 11:07 Encounter Reason: Follow up tests - Diagnostic tests include other (labs). Date: (12/07/11). Follow up visit with no current symptoms.Encounter Diagnosis: Anxiety (300.00), DEFICIENCY, VITAMIN D NOS (268.9), Elevated LFT (790.6), Abnormal TSH (794.5) End: 07-Jan-2012 12:08 [facility] Phone Encounter On: 10-Dec-2011 8:46 Encounter Diagnosis: Anxiety (300.00) End: 10-Dec-2011 8:50 [facility] Phone Encounter On: 09-Dec-2011 15:18 Encounter Diagnosis: Unspecified Diagnosis End: 09-Dec-2011 15:23 [facility] Lab Order On: 08-Dec-2011 16:43 Encounter Diagnosis: Hypertension 401.1 (Renamed from Hypertension (401.0)) End: 08-Dec-2011 16:48 [facility] Office Visit On: 07-Dec-2011 11:38 Encounter Reason: Fatigue - Symptoms include fatigue. Onset was 7 month(s) ago.Encounter Diagnosis: Anxiety (300.00), B12 Deficiency (281.1), DEFICIENCY, VITAMIN D NOS (268.9), Hypertension 401.1 (Renamed from Hypertension (401.0)) End: 07-Dec-2011 12:58 [facility] Office Visit On: 30-Sep-2011 12:21 Encounter Reason: Follow up acute care visit - The patient feels the same. Patient has been compliant with instructions. Current medication use: experiencing side effects (believes memory loss is a side effect of meds, s End: 30-Sep-2011 13:10 tates that he left his car running). Patient sleeps 7 hours per night.Encounter Diagnosis: Memory loss (780.93), Other and unspecified alcohol dependence, unspecified drinking behavior (303.90), Anxiety (300.00) [facility] Annotation/Addendum On: 23-Sep-2011 9:20 [facility] End: 23-Sep-2011 9:22 Office Visit On: 23-Sep-2011 8:28 Encounter Reason: Follow up Meds - The patient feels well with no complaints, has good energy level and is sleeping well. Patient has been compliant with instructions. Current medication use: no side effects, compliant w End: 23-Sep-2011 9:05 ith dosing regimen and considered effective by patient. Patient sleeps 7 hours per night. Impact of disease: emotional impact-mild. Nutrition: balanced diet and supplemental vitamins.Encounter Diagnosis: Anxiety (300.00), B12 Deficiency (281.1), Other and unspecified alcohol dependence, unspecified drinking behavior (303.90), Gerd (530.81) [facility] Office Visit On: 26-Aug-2011 9:30 Encounter Reason: Follow up hospital - Reason for ER visit: note: (chest pain). The patient feels well with minor complaints, has decreased energy level and is sleeping well. Patient has been compliant with instructions. End: 26-Aug-2011 10:03 Current medication use: no side effects. Patient sleeps 6 hours per night. Impact of disease: no overall impact. Nutrition: balanced diet. Hospital procedures performed were other (stress test, labs).Encounter Diagnosis: Gerd (530.81) [facility] Office Visit On: 19-Jul-2011 12:57 Encounter Diagnosis: Anxiety (300.00), Tremors (781.0) End: 19-Jul-2011 13:28 [facility] Office Visit On: 04-Jun-2011 9:17 Encounter Reason: Follow up for chronic medical issues - The patient feels well with no complaints, has good energy level and is sleeping well. Patient has been compliant with instructions. Current medication use: no eldon End: 04-Jun-2011 9:48 e effects. Patient sleeps 8 hours per night. Impact of disease: no overall impact. Nutrition: inadequate caloric intake (not hungry as much.). The medical issues the patient is following up for include gastric reflux and high blood pressure. Encounter Diagnosis: Other and unspecified alcohol dependence, unspecified drinking behavior (303.90), Memory loss (780.93) [facility] Office Visit On: 21-May-2011 10:30 Encounter Diagnosis: Memory loss (780.93), Anxiety (300.00), Other and unspecified alcohol dependence, unspecified drinking behavior (303.90) End: 21-May-2011 10:56 [facility] Office Visit On: 07-May-2011 10:34 Encounter Reason: Follow up acute care visit - The patient feeling better since last seen. Patient has been compliant with instructions. Current medication use: experiencing side effects (celexa causing slurred speech an End: 10-May-2011 8:57 d memory loss ). Patient sleeps 7 hours per night. Impact of disease: emotional impact-moderate. Nutrition: balanced diet and supplemental vitamins. The medical issues the patient is following up for include depression and other (alcohol abuse ). Encounter Diagnosis: Neck pain (723.1), Other and unspecified alcohol dependence, unspecified drinking behavior (303.90), Anxiety (300.00), Elevated LFT (790.6), Memory loss (780.93) [facility] Office Visit On: 19-Apr-2011 8:33 Encounter Reason: Follow up acute care visit - The patient feeling better since last seen and improving. Patient has been compliant with instructions. Current medication use: no side effects and compliant with dosing reg End: 19-Apr-2011 9:07 imen. Patient sleeps 7 hours per night. Impact of disease: emotional impact-mild. Nutrition: balanced diet and supplemental vitamins. The medical issues the patient is following up for include depression and other (anxiety, alcohol abuse ). Encounter Diagnosis: Other and unspecified alcohol dependence, unspecified drinking behavior (303.90), Anxiety (300.00), Elevated LFT (790.6) [facility] Office Visit On: 15-Apr-2011 10:49 Encounter Diagnosis: CANDIDIASIS, MOUTH (THRUSH) (112.0), Other and unspecified alcohol dependence, unspecified drinking behavior (303.90), Anxiety (300.00), B12 Deficiency (281.1), Fatigue (780.79), End: 15-Apr-2011 18:34 Hypertension 401.1 (Renamed from Hypertension (401.0)) [facility] Office Visit On: 23-Feb-2011 9:05 Encounter Reason: Follow up acute care visit - The patient feeling better since last seen and improving. Patient has been compliant with instructions. Current medication use: no side effects, compliant with dosing regime End: 23-Feb-2011 9:32 n and considered effective by patient. Patient sleeps 7 hours per night. The medical issues the patient is following up for include All identified problems below and other (thrush).Encounter Diagnosis: CANDIDIASIS, MOUTH (THRUSH) (112.0), B12 Deficiency (281.1), Impaired fasting glucose (790.21), Hypertension 401.1 (Renamed from Hypertension (401.0)), DEFICIENCY, VITAMIN D NOS (268.9), Anxiety (300.00) [facility] Office Visit On: 09-Feb-2011 12:51 Encounter Diagnosis: CANDIDIASIS, MOUTH (THRUSH) (112.0) End: 09-Feb-2011 13:10 [facility] Office Visit On: 07-Jan-2011 7:15 Encounter Reason: Follow up acute care visit - The patient feeling better since last seen and improving. Patient has been compliant with instructions. Current medication use: no side effects and compliant with dosing reg End: 07-Jan-2011 7:35 imen. Patient sleeps 7 hours per night. Impact of disease: emotional impact-mild. Nutrition: balanced diet and supplemental vitamins. The medical issues the patient is following up for include depression (anxiety ).Encounter Diagnosis: Anxiety (300.00) [facility] Office Visit On: 25-Dec-2010 7:57 Encounter Diagnosis: Anxiety (300.00) End: 25-Dec-2010 8:38 [facility] Annotation/Addendum On: 30-Nov-2010 15:11 Encounter Diagnosis: Unspecified Diagnosis End: 02-Dec-2010 20:20 [facility] Annotation/Addendum On: 30-Nov-2010 14:28 Encounter Diagnosis: Anxiety (300.00), B12 Deficiency (281.1) End: 30-Nov-2010 15:10 [facility] Phone Encounter On: 25-Jun-2010 9:17 [facility] End: 25-Jun-2010 9:18 Office Visit On: 08-Jun-2010 16:01 Encounter Reason: Follow up for chronic medical issues - The patient feels well with minor complaints and has good energy level. Patient has been compliant with instructions. Current medication use: no side effects ,comp End: 08-Jun-2010 16:31 liant with dosing regimen and considered effective by patient. Patient sleeps 7 hours per night. Impact of disease: emotional impact-mild. Nutrition: balanced diet and supplemental vitamins. The medical issues the patient is following up for include cardiac issues ,depression (anxiety) ,high blood pressure and other (IBS, B12 def., arthralgias, RLS, alcohol abuse). Encounter Diagnosis: B12 Deficiency (281.1), Diverticulosis (562.10), Anxiety (300.00), Other and unspecified alcohol dependence, unspecified drinking behavior (303.90), Irritable bowel syndrome (564.1), Hypertension 401.1 (Renamed from Hypertension (401.0)), Alcohol abuse, continuous drinking behavior (305.01), Neck pain (723.1), ARTHRALGIAS 719.40, Well Male Exam (V70.0), Restless legs syndrome (RLS) (333.94), Gerd (530.81), Fatigue (780.79), Muscle spasm (728.85), Weight gain (783.1), Impaired fasting glucose (790.21) [facility] Office Visit On: 23-Apr-2010 13:14 Encounter Reason: Abdominal pain - The onset of the pain has been acute and has been occurring in a persistent pattern for 3 days. The course has been constant. The pain is described as a moderate dull ache and pressure End: 23-Apr-2010 14:08 sensation. The pain is described as being located in the left upper quadrant. The pain does not radiate. The symptoms have no relieving factors. Encounter Diagnosis: Abdominal Pain,LUQ (789.02) [facility] Annotation/Addendum On: 23-Mar-2010 14:53 Encounter Reason: Follow up for chronic medical issues - The patient feels well with minor complaints (having pain and spasms in my neck not sure if it is arthritis). Patient has been compliant with instructions. Patient End: 23-Mar-2010 15:25 sleeps 6 hours per night. Nutrition: balanced diet. Encounter Diagnosis: Neck pain (723.1), NONSPECIFIC FINDINGS ON EXAMINATION OF BLOOD, OTHER ABNORMAL BLOOD CHEMISTRY (790.6), B12 Deficiency (281.1), Other and unspecified alcohol dependence, unspecified drinking behavior (303.90), Anxiety (300.00), Hypertension 401.1 (Renamed from Hypertension (401.0)), Diverticulosis (562.10), Irritable bowel syndrome (564.1), Impaired fasting glucose (790.21), Alcohol abuse, continuous drinking behavior (305.01), Weight gain (783.1), Muscle spasm (728.85), Fatigue (780.79), Gerd (530.81), Restless legs syndrome (RLS) (333.94), ARTHRALGIAS 719.40, Well Male Exam (V70.0), Cerumen impaction (380.4) [facility] Office Visit On: 21-Jan-2010 15:37 Encounter Reason: Neck pain - The onset of the neck pain has been sudden and has been occurring in an intermittent pattern for 2 days. The course has been worsening. The neck pain is described as a moderate to severe sha End: 21-Jan-2010 16:10 rp stabbing ( spasm type). The neck pain is described as being located in the upper back. The back pain does not radiate The back pain is aggravated by sitting ( driving). The back pain is relieved by bedrest. There has been no associated use of anticoagulants ,history of malignancy ,neck stiffness ,headache or paresthesia of arms. There have been no previous diagnostic tests. There have been no previous evalutations. Encounter Diagnosis: Neck pain (723.1) [facility] Office Visit On: 12-Nov-2009 9:30 Encounter Reason: Follow up, Laboratory Test Results - Lab results: other (review 10/07 labs). Date: (10/07/09). Current symptoms/reason for visit include/s Follow up visit with no current symptoms. Encounter Diagnosis: End: 12-Nov-2009 10:09 Impaired fasting glucose (790.21), Anxiety (300.00), Alcohol abuse, continuous drinking behavior (305.01), Hypertension 401.1 (Renamed from Hypertension (401.0)), Weight gain (783.1) [facility] Office Visit On: 07-Oct-2009 14:33 Encounter Reason: Follow up for chronic medical issues - The patient feels well with minor complaints and has decreased energy level. Patient has been compliant with instructions. Current medication use: no side effects End: 07-Oct-2009 15:06 ,compliant with dosing regimen and considered effective by patient. Patient sleeps 7 hours per night. Impact of disease: emotional impact-mild. Nutrition: balanced diet and supplemental vitamins. The me dical issues the patient is following up for include blood sugar issues ,cardiac issues ,depression (anxiety ) ,gastric reflux ,high blood pressure ,high cholesterol and other (B12 def., alcohol abuse, IBS, RLS ). Encounter Diagnosis: Impaired fasting glucose (790.21), Muscle spasm (728.85), Hypertension 401.1 (Renamed from Hypertension (401.0)), Irritable bowel syndrome (564.1), Other and unspecified alcohol dependence, unspecified drinking behavior (303.90), B12 Deficiency (281.1), NONSPECIFIC FINDINGS ON EXAMINATION OF BLOOD, OTHER ABNORMAL BLOOD CHEMISTRY (790.6), Anxiety (300.00), Diverticulosis (562.10), Alcohol abuse, continuous drinking behavior (305.01), Fatigue (780.79), Gerd (530.81), Restless legs syndrome (RLS) (333.94), ARTHRALGIAS 719.40, Well Male Exam (V70.0) [facility] Office Visit On: 07-Jul-2009 11:34 Encounter Reason: Back pain - The onset of the pain has been sudden (fell in the yard at home on sat and down onto the left side and has had pain ever since) and has been occurring in a persistent pattern for 2 days. The End: 07-Jul-2009 12:14 course has been constant. The pain is characterized as stabbing ,piercing and shooting. The pain is described as being located in the upper back and lower back (left side). The pain does not radiate. T he pain is precipitated by trauma. The symptoms are aggravated by exertion ,prolonged standing and prolonged sitting. The symptoms are relieved by lying down. The pain has been associated with back stiffness. Encounter Diagnosis: Muscle spasm (728.85) [facility] Office Visit On: 14-Apr-2009 14:36 Encounter Reason: Bloody stools - The onset of the bloody stools has been sudden and they have been occurring in a persistent pattern for 2 days. The course has been constant. The bloody stools are characterized as blood End: 14-Apr-2009 15:06 mixed in stools (stool bright red). The symptoms have been associated with abdominal pain ,change in bowel habits ,diarrhea and nausea. Encounter Diagnosis: Diarrhea (787.91), Rectal Bleeding(569.3), Unspecified hemorrhoids without mention of complication (455.6) [facility] Office Visit On: 04-Apr-2009 8:09 Encounter Reason: Follow up for chronic medical issues - The patient feels well with minor complaints ,has decreased energy level and is sleeping poorly. Patient has been compliant with instructions. Current medication u End: 04-Apr-2009 8:55 se: no side effects ,compliant with dosing regimen and considered effective by patient. Patient sleeps 6 hours per night. Impact of disease: emotional impact-mild. Nutrition: balanced diet and supplemen maritza vitamins. The medical issues the patient is following up for include cardiac issues ,depression (anxiety) ,gastric reflux ,high blood pressure and other (B12 def., RLS, IBS, alcohol abuse ). Encounter Diagnosis: Hypertension (401.0), Anxiety (300.00), Viral infection, unspecified (079.99), Diverticulosis (562.10), Irritable bowel syndrome (564.1), Cerumen impaction (380.4), Other and unspecified alcohol dependence, unspecified drinking behavior (303.90), B12 Deficiency (281.1), NONSPECIFIC FINDINGS ON EXAMINATION OF BLOOD, OTHER ABNORMAL BLOOD CHEMISTRY (790.6), Alcohol abuse, continuous drinking behavior (305.01), Fatigue (780.79), Hamstring strain (Renamed from Hamstring stran), Diarrhea (787.91), Chronic cough (786.2), Impaired fasting glucose (790.21), Well Male Exam (V70.0), Gerd (530.81), Restless legs syndrome (RLS) (333.94), Low back pain (724.2), SOB (786.05), Allergic rhinitis (477.9), Dizziness (780.4), Limb pain (729.5) [facility] Office Visit On: 30-Jan-2009 13:35 Encounter Reason: Sinusitis/ - The duration of the symptoms are 5 days The course has been gradually worsening. The sinusitis/ has no relieving factors. Associated features include The symptoms have been associated with End: 30-Jan-2009 13:45 cough ,ear pain ,nasal discharge/stuffy nose and sinus pain. Encounter Diagnosis: Viral infection, unspecified (079.99), Cerumen impaction (380.4) [facility] Office Visit On: 29-Oct-2008 8:41 Encounter Reason: Follow up acute care visit - The patient feeling better since last seen. Patient has been compliant with instructions. Current medication use: no side effects and compliant with dosing regimen. Patient End: 29-Oct-2008 9:03 sleeps 7 hours per night. Impact of disease: emotional impact-moderate. Nutrition: balanced diet. The medical issues the patient is following up for include depression (anxiety ). Encounter Diagnosis: Alcohol abuse, continuous drinking behavior (305.01), Anxiety (300.00), B12 Deficiency (281.1), Hypertension 401.1 (Renamed from Hypertension (401.0)) [facility] Office Visit On: 20-Sep-2008 9:26 Encounter Reason: Depression - The onset of the depression has been gradual and has been occurring in a persistent pattern for 3 months. The course has been increasing. The depression is described as feeling blue ,sad ,n End: 20-Sep-2008 10:21 ervous and tired. The symptoms have been associated with change in job ,depression in the past ,feeling tired ,financial difficulties ,lack of energy ,recent changes in life and suicidal thoughts. Encounter Diagnosis: Alcohol abuse, continuous drinking behavior (305.01), Anxiety (300.00), Hypertension (401.0) [facility] Nurse Visit On: 06-Sep-2008 13:19 Encounter Reason: BP nurse visit - There has been no associated dizziness ,light headedness ,new chest pain or new shortness of breath. blood pressure range : (120-130/ 90's). Encounter Diagnosis: End: 09-Sep-2008 12:26 Hypertension 401.1 (Renamed from Hypertension (401.0)) [facility] Office Visit On: 13-Aug-2008 15:01 Encounter Reason: Follow up acute care visit - The patient feeling better since last seen. Patient has been compliant with instructions. Current medication use: no side effects ,compliant with dosing regimen and consider End: 13-Aug-2008 15:39 ed effective by patient. Patient sleeps 7 hours per night. Impact of disease: emotional impact-mild. Nutrition: balanced diet. The medical issues the patient is following up for include high blood pressure. Encounter Diagnosis: Fatigue (780.79) [facility] Office Visit On: 03-Jun-2008 14:29 Encounter Reason: Leg pain - The leg pain began suddenly. The symptoms have been occurring in an increasing pattern. The symptoms are described as a dull ache and are moderate in severity. There is involvement of the lef End: 03-Jun-2008 14:39 t lower extremity. Note for Leg pain: moving furniture on [facility] felt pop and pull yesterday. troule walk and then bad this amEncounter Diagnosis: Hamstring strain (Renamed from Hamstring stran) [facility] Office Visit On: 02-May-2008 7:15 Encounter Reason: Follow up, Laboratory Test Results - Date: (04-26-08 ). Current symptoms/reason for visit include/s Follow up visit with no current symptoms. There is a family history of cardiovascular disease. Past med End: 02-May-2008 7:50 ical history includes elevated cholesterol ,elevated triglycerides ,emotional problems (anxiety ) ,gastroesophageal reflux disease ,hypertension ,iron deficiency anemia and irritable bowel disease. Encounter Diagnosis: Diarrhea (787.91), B12 Deficiency (281.1), Fatigue (780.79), Hypertension 401.1 (Renamed from Hypertension (401.0)) [facility] Office Visit On: 02-Apr-2008 13:45 Encounter Reason: Follow up acute care visit - The patient feeling better since last seen and improving. Patient has been compliant with instructions. Current medication use: no side effects ,compliant with dosing regime End: 02-Apr-2008 14:10 n and considered effective by patient. Patient sleeps 7 hours per night. Impact of disease: emotional impact-mild. Nutrition: balanced diet. The medical issues the patient is following up for include other (fatigue B12 def ). Encounter Diagnosis: Anxiety (300.00), Fatigue (780.79), Hypertension 401.1 (Renamed from Hypertension (401.0)), Irritable bowel syndrome (564.1), Diarrhea (787.91), B12 Deficiency (281.1) [facility] Office Visit On: 28-Feb-2008 8:13 Encounter Reason: Follow up, Laboratory Test Results - Date: (01-18-08 ). Current symptoms/reason for visit include/s Symptoms include other (IBS flare ups ). Past medical history includes emotional problems (anxiety ) ,h End: 28-Feb-2008 8:53 ypertension and other (B12 def., IBS ). Encounter Diagnosis: Chronic cough (786.2), Fatigue (780.79), Impaired fasting glucose (790.21), Alcohol abuse, continuous drinking behavior (305.01), Irritable bowel syndrome (564.1) [facility] Office Visit On: 18-Jan-2008 7:40 Encounter Reason: Follow up for chronic medical issues - The patient feels well with minor complaints ,has decreased energy level and is sleeping well. Patient has been compliant with instructions. Current medication use End: 18-Jan-2008 8:18 : no side effects ,compliant with dosing regimen and considered effective by patient. Patient sleeps 7 hours per night. Impact of disease: emotional impact-mild. Nutrition: balanced diet. The medical is sues the patient is following up for include depression (anxiety) ,gastric reflux ,high blood pressure and other (B12 def, IBS, fatigue ). Note for Follow up for chronic medical issues: say saba for throat issues--dry nose and mouth--use nasal spray vocal cyst-stable. sleep--go to bed 6 pm then up 3-5 pm. broken s;eep but about 9 hours. sleep fair. restless leg better. use med prn. using vit b12 s till very fatigue. get anxiety alot think cause. use atenelol daily. no cardiac signs and symptoms except race heart. some increase adrenaline. sore in muscles --arm muscle and back. no caffiene. etoh-- 1 beer a night on weekends may have 6 at night. Encounter Diagnosis: B12 Deficiency (281.1), Hypertension 401.1 (Renamed from Hypertension (401.0)), Irritable bowel syndrome (564.1), Anxiety (300.00), Fatigue (780.79), Restless legs syndrome (RLS) (333.94), Chronic cough (786.2), Gerd (530.81), Well Male Exam (V70.0) [facility] Office Visit On: 02-Nov-2007 8:29 Encounter Diagnosis: B12 Deficiency (281.1), Low back pain (724.2), Hypertension (401.0) End: 02-Nov-2007 9:05 [facility] Office Visit On: 22-Sep-2007 14:13 Encounter Diagnosis: B12 Deficiency (281.1) End: 26-Sep-2007 8:57 [facility] Office Visit On: 25-Aug-2007 7:31 Encounter Diagnosis: B12 Deficiency (281.1) End: 25-Aug-2007 14:11 [facility] Office Visit On: 04-Aug-2007 13:29 Encounter Diagnosis: Irritable bowel syndrome (564.1), Fatigue (780.79), B12 Deficiency (281.1) End: 04-Aug-2007 14:04 [facility] Nurse Visit On: 21-Jul-2007 8:27 Encounter Diagnosis: B12 Deficiency (281.1) End: 21-Jul-2007 13:09 [facility] Office Visit On: 30-Jun-2007 7:45 Encounter Diagnosis: B12 Deficiency (281.1) End: 10-Jul-2007 9:38 [facility] Nurse Visit On: 02-Jun-2007 10:41 Encounter Diagnosis: B12 Deficiency (281.1) End: 02-Jun-2007 11:29 [facility] Office Visit On: 22-May-2007 14:56 Encounter Reason: Follow up for chronic medical issues - The patient feels well with minor complaints ,has decreased energy level and is sleeping well. Patient has been compliant with instructions. Current medication use End: 22-May-2007 17:11 : no side effects and compliant with dosing regimen. Patient sleeps 5 hours per night. Nutrition: balanced diet and no supplemental vitamins & iron. The medical issues the patient is following up fo r include All identified problems below ,high blood pressure ,high cholesterol and other (b 12 def.). Note for Follow up for chronic medical issues: still restless sleep, some sadness, in am phylmfrom throat, this am left ear plugged, sneezing Encounter Diagnosis: B12 Deficiency (281.1), Hypertension (401.0), Irritable bowel syndrome (564.1), Diverticulosis (562.10), Anxiety (300.00), NONSPECIFIC FINDINGS ON EXAMINATION OF BLOOD, OTHER ABNORMAL BLOOD CHEMISTRY (790.6), Other and unspecified alcohol dependence, unspecified drinking behavior (303.90), Fatigue (780.79), Restless legs syndrome (RLS) (333.94), Alcohol abuse, continuous drinking behavior (305.01), Chronic cough (786.2), SOB (786.05), Allergic rhinitis (477.9), Dizziness (780.4), Well Male Exam (V70.0) [facility] Office Visit On: 04-May-2007 11:56 Encounter Diagnosis: B12 Deficiency (281.1) End: 04-May-2007 12:13 [facility] Office Visit On: 21-Apr-2007 13:55 Encounter Diagnosis: B12 Deficiency (281.1) End: 25-Apr-2007 8:39 [facility] Office Visit On: 27-Mar-2007 15:12 Encounter Reason: Follow up for chronic medical issues - The patient feels well with minor complaints ,has decreased energy level and is sleeping poorly. Patient has been compliant with instructions. Current medication u End: 27-Mar-2007 15:47 se: no side effects and compliant with dosing regimen. Patient sleeps 6 hours per night. Impact of disease: emotional impact-mild. Nutrition: balanced diet. The medical issues the patient is following u p for include depression (anxiety ) ,gastric reflux ,high blood pressure and other (diverticultis B12 def ). Note for Follow up for chronic medical issues: does not feel B12 injection is working , res tless leg script help--not every day, wake up sweating, not improve fatique, no allergies, yesterday--lightheaded, lips tingly, moving lawn, nerves and anxious, no syncope, BP good, eat good, drinking 2 beer a dayEncounter Diagnosis: B12 Deficiency (281.1), Fatigue (780.79), Restless legs syndrome (RLS) (333.94), Anxiety (300.00), Hypertension (401.0), Alcohol abuse, continuous drinking behavior (305.01), Diverticulosis (562.10), Irritable bowel syndrome (564.1), Chronic cough (786.2), SOB (786.05), Allergic rhinitis (477.9), Dizziness (780.4) [facility] Office Visit On: 07-Mar-2007 13:05 Encounter Diagnosis: B12 Deficiency (281.1) End: 09-Mar-2007 8:29 [facility] Office Visit On: 18-Jan-2007 15:09 Encounter Diagnosis: B12 Deficiency (281.1) End: 19-Jan-2007 8:53 [facility] Nurse Visit On: 22-Dec-2006 10:07 Encounter Diagnosis: B12 Deficiency (281.1) End: 22-Dec-2006 10:19 [facility] Office Visit On: 09-Dec-2006 11:40 Encounter Reason: Follow up for chronic medical issues - The patient feels well with minor complaints. Patient has been compliant with instructions. Current medication use: no side effects. Patient sleeps 7 hours per nig End: 09-Dec-2006 12:16 ht. Impact of disease: emotional impact-mild. Nutrition: balanced diet. The medical issues the patient is following up for include gastric reflux ,high blood pressure and other ( IBS, anxiety ). blood p ressure range : (dbp 90's sbp 140-150 better on higher meds). Note for Follow up for chronic medical issues: doing well with drinking--on vacation drink some. feel fatique lay on couch at 7pm and slee p then up at 12 noon, restless leg at night-ativan not help, better if walk around at night, have to walk around table dining room , sleep cycle off, still some anxiety and stress, rarely use lorazepam- -1-2 x a week, when drinking not want to be around crowds, if drink upset nerves, now 5 beers a weekEncounter Diagnosis: Fatigue (780.79), Restless legs syndrome (RLS) (333.94), Anxiety (300.00), Hypertension (401.0), Irritable bowel syndrome (564.1) , Alcohol abuse, continuous drinking behavior (305.01) [facility] Historical Summary On: 08-Dec-2006 11:26 [facility] End: 08-Dec-2006 11:33 Historical Summary On: 25-Nov-2006 14:54 Encounter Diagnosis: Unspecified Diagnosis End: 25-Nov-2006 14:55 [facility] Error Encounter On: 23-Nov-2006 12:35 [facility] End: 25-Nov-2006 14:52 Phone Encounter On: 24-Oct-2006 13:21 Encounter Diagnosis: Unspecified Diagnosis End: 24-Oct-2006 13:22 [facility] Payers [employer] MedicareUnited Health CareWilbert Segura; shamika guarantor
--- OUTSIDE RECORDS SUMMARY | 2018-12-20 02:28 | XMS RPT_ITS | Continuity of Care Document ---
:1950 Author Organization [facility] Address [address] [place] [address] Phone Care Team Providers Name Role Phone Jailene Mayfield CNP Unavailable Dr. Ger Gaston Unavailable Jennifer Osuna Unavailable Wesley Sousa Unavailable [facility] Unavailable Blaire ALBARADO, Domenic Mancilla Unavailable Jessica Pop Unavailable Patricio Burton Unavailable Sondra Jimenez Unavailable Unavailable July Mazariegos Unavailable Sasha NEWBERRY MD, Maggie Bernal Unavailable Jhony Yusuf Unavailable Hayden Valero Unavailable Zoila Elder Unavailable Unavailable Sue Rooney Unavailable Unavailable Safia Iraheta LPN Unavailable Unavailable IVIS Lemus Unavailable Unavailable Lauryn Hanson Unavailable Unavailable Unavailable [...] months doing well seeing Rogerio Freitas at [place]. stil work with him on and off. 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) Comments: and pos Anti DNA Status: Active Anxiety (F41.9, 300.00) Comments: see discussion on 05-17-18 ov Status: Active B12 deficiency (E53.8, 266.2) Comments: using otc vit b12 also add thiamine Status: Active BMI 26.0-26.9,adult (Z68.26, V85.22) Status: Active BMI 26.0-26.9,adult (Z68.26, V85.22) Status: Active BMI 27.0-27.9,adult (Z68.27, V85.23) Status: Active BMI 28.0-28.9,adult (Z68.28, V85.24) Comments: talk about diet clean eating, get calories outof drinks, cut proportions Status: Active BMI 28.0-28.9,adult (Z68.28, V85.24) Status: Active Bradycardia (R00.1, 427.89) Status: Active [...] Comments: per low dose CT lung per Sibilia, Sibilia will follow Status: Active Encounter for routine history and physical exam for male (Z00.00, V70.0) Comments: 02-06-16 PSA , colonoscopy 2009 (Alek) reviewed all tests and answered all questions. needs all immunizations updated, rec. local pharm for tetanus and Yenyofe14,whisper test=WNL mini mental=30/30 Status: Active Erectile disorder, [...] prevacid 3, wean nexium and take acid brain picker as needed. Status: Active Hearing loss of both ears due to cerumen impaction (H61.23, 389.8) Status: Active Hematuria (R31.9, 599.70) Comments: newly diagnosed lupus, Ua with blood newly diagnosed Lupus will send to urologist Status: Active Hip pain, left (M25.552, 719.45) [...] replacement and or work out Status: Active Muscle spasm of back (M62.830, [...] leg cramps (G47.62, 327.52) Comments: using micah [employer] with help Status: Active Nocturnal leg cramps [...] Comments: two low T's done 09-21-16 and 5-5-19llqcdq labs good, recheck psa and then cbc, [...] 90 days Quantity: 90 {Tablet} Refills: 3 Ordered:25-Sep-2018 Tran LOTT Jailene Rodney LOTT Jailene Vega Start : 25-Sep-2018 Active Micah Mag Zinc +D3 Oral Tablet 1 (one) Tablet Tablet qhs for 0 days Quantity: 30 {Tablet} Refills: 0 Ordered:20-Sep-2017 Tran LOTT Jailene Rodney LOTT Jailene Vega Start : 20-Sep-2017 Active Ergocalciferol 34155 UNIT Oral Capsule 1 (one) Capsule Capsule weekly for 0 days Quantity: 8 {Capsule} Refills: 0 Ordered:16-May-2017 Tran LOTT Jailene Rodney LOTT Jailene Vega Start : 16-May-2017 Active Comments:06-14-16 no refills patient needs an appointment NexIUM 24HR 20 MG Oral Capsule Delayed Release 1 (one) Capsule DR Capsule DR daily for 0 days Quantity: 30 {Capsule} Refills: 0 Ordered:29-Sep-2016 Safia Iraheta LPN Start : 21-Sep-2016 Active ProAir HFA 108 (90 Base) MCG/ACT Inhalation Aerosol Solution 1-2 Puff Puff Q 4-6 hours PRN for 0 days Quantity: 1 {Inhaler} Refills: 0 Ordered:19-Dec-2017 Safia Iraheta LPN Start : 19-Dec-2017 Active Sildenafil Citrate 20 MG Oral Tablet [...] days Quantity: 28 {Tablet} Refills: 0 Ordered:19-Jul-2016 Jailene Mayfield CNP, CNP, Aurelia Start : 19-Jul-2016 End : 02-Aug-2016 Inactive Augmentin 875-125 MG Oral Tablet 1 (one) Tablet bid for 0 days Quantity: 20 {Tablet} Refills: 0 Ordered:29-Nov-2017 Mehnaz Desai LPN Start : 08-Nov-2017 End : 29-Nov-2017 Inactive Cefadroxil 500 MG Oral Capsule 1 (one) Capsule bid for 7 days Quantity: 14 {Capsule} Refills: 0 Ordered:29-Nov-2017 Tran LOTT Jailene Rodney LOTT, Jailene Vega Start : 29-Nov-2017 End : 06-Dec-2017 Inactive [...] days Quantity: 21 {Tablet} Refills: 0 Ordered:08-May-2018 Esequiel CURING FINISHEROswald Delgadilloa Start : 19-Dec-2017 End : 08-May-2018 Inactive DEXILANT, 60MG (Oral Capsule Delayed Release) [address] qd for 0 days Quantity: 90 {Capsule_DR} Refills: 3 Ordered:26-Mar-2014 Long CURING FINISHER, Mehnaz L Start : 06-Nov-2012 End : 26-Mar-2014 Inactive DEXILANT, 60MG (Oral Capsule Delayed Release) [address] qd for 0 days Quantity: 90 {Capsule_DR} Refills: 3 Ordered:26-Mar-2014 Long CURING FINISHER, Mehnaz L Start : 06-Nov-2012 End : 26-Mar-2014 Inactive DICYCLOMINE HCL, 20MG (Oral Tablet) uad Tablet BID/PRN for 0 days Quantity: 30 {Tablet} Refills: 3 Ordered:26-Mar-2014 Long CURING FINISHER, Mehnaz L Start : 03-Mar-2011 End : [...] End : 16-Dec-2014 Inactive Comments:watch sunsensitivity DRISDOL, 41014DKBU (Oral Capsule) 1 Capsule three times weekly for 0 days Quantity: 12 {Capsule} Refills: 3 Ordered:26-Mar-2014 Long CURING FINISHER, Mehnaz L Start : 15-Feb-2012 End : 26-Mar-2014 Inactive Exforge 5-160 MG Oral Tablet 1 (one) Tablet QD for 0 days Quantity: 90 {Tablet} Refills: 1 Ordered:20-Feb-2018 Tran LOTT, Jailene Frias CNP Start : 29-Nov-2017 End : 20-Feb-2018 Inactive [...] Quantity: 90 {Tablet_ER} Refills: 0 Ordered:23-Mar-2012 Carolann Whtie RN Start : 09-Dec-2011 End : 08-Mar-2012 [...] Start : 22-Sep-2016 End : 29-Sep-2016 Inactive LORazepam 1 MG Oral Tablet 1 Tablet qd prn for 30 days Quantity: 30 {Tablet} Refills: 0 Ordered:26-Jul-2018 Tran LOTT, Jailene Stevens CNP, Aurelia Start : 26-Jul-2018 End : 25-Aug-2018 Inactive Comments:Dana Woodruff. F41.9 MAGNESIUM OXIDE, 400MG (Oral Tablet) 1 Tablet [...] days Quantity: 50 {Mil} Refills: 0 Ordered:09-Feb-2011 Tran LOTT, Jailene Stevens CNP, Jailene Vega Start : 09-Feb-2011 End : 19-Feb-2011 Inactive NORVASC, 10MG (Oral Tablet) 1 Tablet QD for 0 days Refills: 0 Ordered:13-Aug-2008 SHALINI Velazquez Start : 09-Dec-2006 End : 13-Aug-2008 Inactive PANTOPRAZOLE SODIUM, 40MG (Oral Tablet Delayed Release) 1 (one) Tablet DR Tablet DR daily for 0 days Quantity: 30 {Tablet} Refills: 5 Ordered:01-Dec-2015 SHALINI Velazquez Start : 29-Apr-2015 End : 01-Dec-2015 Inactive SEROQUEL XR, 150MG (Oral Tablet Extended [...] days Quantity: 30 {Tablet} Refills: 5 Ordered:26-Mar-2014 Tomasz Desai LPNn L Start : 07-Jan-2012 End : 26-Mar-2014 [...] days Quantity: 30 {Tablet_ER} Refills: 3 Ordered:09-Dec-2006 SHALINI Velazquez Start : 09-Dec-2006 End : 02-Nov-2007 Discontinued SKELAXIN, 800MG (Oral Tablet) 1 Tablet TID/PRN for 0 days Quantity: 20 {Tablet} Refills: 0 Ordered:02-Nov-2007 SHALINI Velazquez Start : 02-Nov-2007 End : 18-Jan-2008 Discontinued Viagra 100 MG Oral Tablet 1 (one) Tablet Tablet take 1 before sex prn for 0 days Quantity: 10 {Tablet} Refills: 4 Ordered:21-Mar-2017 Slarb CURING FINISHER, Safia Start : 06-Feb-2016 End : 21-Mar-2017 Discontinued Vitamin B Complex Oral Tablet 1 (one) Tablet daily for 30 days Quantity: 30 {Tablet} Refills: 0 Ordered:13-Jun-2017 Slarb CURING FINISHER, Safia Start : 16-May-2017 End : 13-Jun-2017 Discontinued Vitamin B1 100 MG Oral Tablet 1 (one) Tablet Tablet bid for 0 days Quantity: 30 {Tablet} Refills: 0 Ordered:21-Sep-2016 Slarb CURING FINISHER, Safia Start : 08-Jul-2014 End : 21-Sep-2016 [...] yet Status: Resolved as of 04-Apr-2009 BMI 27.0-27.9,adult (Z68.27, V85.23) Status: Inactive as of 29-Nov-2017 BMI 28.0-28.9,adult (Z68.28, V85.24) Status: Inactive as of 20-Sep-2017 BMI 29.0-29.9,adult (Z68.29, V85.25) Status: Inactive as of 20-Sep-2017 Bruising (T14.8, 924.9) Comments: look like senile ecchymosis Status: Inactive as of 30-Nov-2015 Candidiasis, mouth (B37.0, 112.0) Status: Inactive as of 12-Apr-2013 Chest pain (R07.9, 786.50) Comments: cath 8-14 normal. relates to anxiety better now not [...] LFTs (R94.5, 790.6) Comments: liver tests up 3-13. not drink in 3 weeks so will check Status: Inactive as of 16-Dec-2014 Encounter for screening for malignant neoplasm of prostate (Renamed from Screening PSA (prostate specific antigen)) (Z12.5, V76.44) Status: Inactive as of 11-Mar-2016 ETOH abuse (F10.10, 305.00) Comments: doing well seeing Rogerio Freitas at [place]. doing well. Currently in remission. doing AA [place] meeting every tuesday. going every other week. [...] V72.84) Comments: For left ear cyst Surgery Nov Dr. Chauhan at [facility] surgery center Status: Inactive as of 20-Sep-2017 [...] 30-Nov-2015 Unspecified Diagnosis Status: Inactive as of 12-Apr-2013 [...] W/WO Contrast Result: Comments: See Note; NOTES: [facility] Imaging Services [address] [place] [address] CT Abd/Pelvis W/WO Contrast MR#: [id number] Acct: [id number] Name: WILBERT SEGURA Rep # : [id number] : 1950 M 68 From: Syed Kraft PCP: Jailene Mayfield NP Status: REG CLI Study: CT Abd/Pelvis W/WO Contrast Date of Exam: 08/22/18 Exam# [id number] Ordering Dr: Gloria Batista CHAIN MAKER HAND-C STUDY: CT ABDOMEN AND PELVIS WITH AND [...] CC: Jailene Mayfield NP; Gloria Batista NP Earth Auger Operator: Signed 05-Jul-[address] Lung Screening Result: Comments: See Note; NOTES: [facility] Imaging Services [address] [place] [address] Lung Screening MR#: [id number] Acct: [id number] Name: WILBERT SEGURA Toni Rep #: [id number] : 1950 M 68 From: Omar Montes De Oca MD PCP: Jailene Mayfield NP Status: REG CLI Study: Low Dose CT Lung Screening Date of Exam: 07/05/18 Exam# [id number] Ordering Dr: Jhony Yusuf MD STUDY: CT [...] , Service support , CC: Jailene Mayfield CHAIN MAKER HAND; Jhony Yusuf MD Earth Auger Operator: Signed 03-Jul-2018 Pelvis 1 or 2 Views Result: Comments: See Note; NOTES: [facility] Imaging Services [address] [place] [address] Pelvis 1 or 2 Views MR#: [id number] Acct: [id number] Name: WILBERT SEGURA Rep #: [id number] : 1950 M 68 From: Yuridia Dey MD PCP: Jailene Mayfield NP Status: REG CLI Study: Pelvis 1 or 2 Views Date of Exam: 07/03/18 Exam# [id number] Ordering Dr: July Mazariegos MD STUDY: X-RAY [...] CC: Jailene Mayfield NP; July Mazariegos MD Earth Auger Operator: Signed 19-Dec-2017 Chest PA and Lateral Result: Comments: See Note; NOTES: [facility] Imaging Services [address] [place] [address] Chest PA and Lateral MR#: [id number] Acct: [id number] Name: WILBERT SEGURA Rep #: [id number] : 1950 M 67 From: Liu Fatima DO PCP: Jailene Mayfield NP Status: REG CLI Study: Chest PA and Lateral Date of Exam: 12/19/17 Exam# [id number] Ordering Dr: Sue Rooney STUDY: X-RAY THANH [...] Signed: Orlando Whalen at 13:03 EST Tel [phone], Service support , CC: Jailene Mayfield NP; ANGELICA Rooney Earth Auger Operator: Signed 19-Dec-2017 Chest PA and Lateral Result: Comments: See Note; NOTES: [facility] Imaging Services [address] [place] [address] Chest PA and Lateral MR#: [id number] Acct: [id number] Name: WILBERT SEGURA Rep #: [id number] : 1950 M 67 From: Liu Fatima DO PCP: Jailene Mayfield NP Status: REG CLI Study: Chest PA and Lateral Date of Exam: 12/19/17 Exam# [id number] Ordering Dr: Sue Rooney STUDY: X-RAY THANH [...] Signed: Orlando Whalen at 13:03 EST Tel [phone], Service support , CC: Jailene Mayfield NP; RUMA-C Sue Rooney Earth Auger Operator: Signed 19-Dec-2017 L/S Spine Min 4 Views Result: Comments: See Note; NOTES: [facility] Imaging Services [address] [place] [address] L/S Spine Min 4 Views MR#: [id number] Acct: [id number] Name: WILBERT SEGURA Rep #: [id number] : 1950 M 67 From: Liu Fatima DO PCP: Jailene Mayfield NP Status: REG CLI Study: L/S Spine Min 4 Views Date of Exam: 12/19/17 Exam# [id number] Ordering Dr: Sue Rooney STUDY: X-RAY - [...] Liu Fatima DO at 13:02 EST Tel [phone], Service support , CC: Jailene Mayfield NP; ANGELICA Rooney Earth Auger Operator: Signed 04-Apr-2017 Thyroid Result: Comments: See Note; NOTES: [facility] Imaging Services [address] [place] [address] Verdana 4d Thyroid MR#: [id number] Acct: [id number] Name: WILBERT SEGURA Rep #: [id number] : 1950 M 67 From: Liu Fatima DO PCP: Jailene Mayfield Status: REG CLI Study: Thyroid Date of Exam: 04/04/17 Exam# [id number] Ordering Dr: Jailene Mayfield STUDY: THYROID ULTRASOUND [...] Liu Fatima DO at 8:53 EDT Tel [phone], Service support , Fax CC: Jailene Mayfield Earth Auger Operator: Signed 02-Dec-2016 Chest PA and Lateral Result: Comments: See Note; NOTES: [facility] Imaging Services [address] [place] [address] Verdana 4d Chest PA and Lateral MR#: [id number] Acct: [id number] Name: WILBERT SEGURA Toni Espinoza #: [id number] : 1950 M 66 From: Liu Fatima DO PCP: Jailene Mayfield Status: REG CLI Study: Chest PA and Lateral Date of Exam: 12/02/16 Exam# [id number] Ordering Dr: Jazmine Cantor DO STUDY: X [...] Liu Fatima DO at 12:13 EST Tel [phone], Service supp ort [phone], CC: Jailene Mayfield; Jazmine Cantor DO Earth Auger Operator: Signed 08-Nov-2016 Chest 1 View (Portable) Result: Comments: See Note; NOTES: [facility] Imaging Services [address] [place] [address] Verdana 4d Chest 1 View (Portable) MR#: [id number] Acct: [id number] Name: WILBERT SEGURA Rep #: [id number] : 1950 66 From: Maxi Arana MD PCP: Jailene Mayfield Status: REG ER Study: Chest 1 View (Portable) Date of Exam: 11/08/16 Exam# [id number] Ordering Dr: Leon Rodrigues MD UDY: X-RAY [...] Maxi Arana MD at 9:02 EST Tel [phone], Service support [phone], CC: Ann Marie Mayfield; Leon Rodrigues MD Earth Auger Operator: Signed 28-Sep-2016 Chest PA and Lateral Result: Comments: See Note; NOTES: [facility] Imaging Services [address] [place] [address] Verdana 4d Chest PA and Lateral MR#: [id number] Acct: [id number] Name: WILBERT SEGURA Rep #: [id number] : 1950 M 66 From: Tree Saul MD PCP: Jailene Mayfield Status: REG CLI Study: Chest PA and Lateral Date of Exam: 09/28/16 Exam# [id number] Ordering Dr: Jailene Mayfield STUDY: X-RA Y [...] MD at 21:06 EDT , Service support [phone], CC: Jailene Mayfield Earth Auger Operator: Signed 21-Sep-2016 Chest PA and Lateral Result: Comments: See Note; NOTES: [facility] Imaging Services [address] [place] [address] Verdana 4d Chest PA and Lateral MR#: [id number] Acct: [id number] Name: WILBERT SEGURA Rep #: [id number] : 1950 M 66 From: Maxi Arana MD PCP: Jailene Mayfield Status: REG CLI Study: Chest PA and Lateral Date of Exam: 09/21/16 Exam# [id number] Ordering Dr: Jailene Mayfield STUDY: X-RAY CHEST [...] Arana MD 2015 at 15:14 EDT Tel [phone], Service support [phone], CC: Jailene Mayfield Earth Auger Operator: Signed 06-Feb-2016 Spirometry (06742) Comments: see scanned document of test done to see results reviewed today with patient Result: 20-May-2014 Cerv Spine 4 or 5 Views Result: Comments: See Note; NOTES: [facility] Imaging Services [address] [place] [address] Radiology Report MR#: [id number] Acct: [id number] Name: WILBERT SEGURA Rep #: [id number] : 1950 M 64 From: Liu Fatima DO PCP: Jewell Hadley MD Status: REG CLI Study: Cerv Spine 4 or 5 Views Date of Exam: 05/20/14 Exam# [id number] Ordering Dr: Jailene Mayfield STUDY: X-RAY - [...] Liu Fatima DO at 9:03 EDT Tel [phone], Service support [phone], CC: Jailene Mayfield; Jewell Hadley MD Earth Auger Operator: Signed Family History Unknown Family Member Name [...] Active Vital Signs Date Test Result Details :26 Temperature 97.8 f Comments: Method: Temporal [...] kg/m2 Body Surface Area Calculated 2.09 m2 6-Wux-747898:20 Temperature 98.2 f Pulse 82 /min Comments: [...] 0.00 cm Results Date Description Value Details :28 CREATININE FINGERSTICK Comments: [facility] [place] [address] [place] [address] CREATININE WB 0.8 mg/dL (Normal) Range: 0.70-1.30 [...] ANTI-ABIGAIL <0.2 {AI} (Normal) Range: 0.0-0.9 :41 Erga-Wdgnblufyyv-89 AB Comments: [facility] (refer to report for specific site)refer to report for address and phone number ANTISCLER <0.2 {AI} (Normal) Range: 0.0-0.9 :41 ANTINUCLEAR ANTIBODIES DIRECT Comments: [facility] (refer to report for specific site)refer to report for address and phone number ALISON-DIRECT Positive (Abnormal) Comments: Performed at: - [facility] [id number] Director: Ger Gonzalez PhD, Phone: [phone] :41 CBC W/Diff, Automated Comments: [facility] [address] [place], [place], [id number] Absolute Lymph 1.86 {X10_3/ul} (Normal) Range: 0.83-4.51 [...] 4.6-6.2 WBC 8.4 K/mm3 (Normal) Range: 4.4-11.0 :41 CCP IgG Antibodies Comments: [facility] (refer to report for specific site)refer to report for address and phone number ANTI-CCP [id number] 5 {units} (Normal) Range: 0-19 Comments: Negative [...] Range: 14-44 :41 Comprehensive Metabolic Profil Comments: [facility] [address] [place], [place], [id number] GAP 5 (Normal) Range: 5-15 CO2 29.0 [...] Comments: Please note revised GLUCOSE reference range mckuqpmzd61/02/2018. :41 Hep B Surface Antibodies Comments: [facility] (refer to report for specific site)refer to report for address and phone number Hep B Arpita AB Non Reactive (Normal) Comments: Non Reactive: Inconsistent with immunity, less than 10 mIU/mL Reactive: Consistent with immunity, greater than 9.9 mIU/ mL :41 Hepatitis B Surface Ag Comments: [facility] (refer to report for specific site)refer to report for address and phone number HB SURF AG Negative (Normal) Comments: Performed at: - [facility] [id number] Director: Ger Gonzalez PhD, Phone: [phone] at: [facility] [id number] Director: Raghu Bowles PhD, Phone: [phone] at: [facility] [id number] Director: Glenn Armijo MD, Phone: [phone] :41 Hepatitis C Antibodies Comments: [facility] (refer to report for specific site)refer to report for address and phone number HEP C AB <0.1 {s/co_ratio} Range: 0.0-0.9 (Normal) Comments: Negative: < 0.8 Indeterminate: 0.8 - 0.9 Positive: > 0.9 The CDC recommends that a positive HCV antibody result be followed up with a HCV Nucleic Acid Amplification test (231324). : HLA B27 Negative (Normal) Comments: [facility] (refer to report for specific site)refer to report for address and phone number 41 Comments: HLA-B*27 IxcrifxzT31 allele interpretation for all loci based on IMGT/HLAdatabase version 3.27This test was developed and its performance characteristicsdetermined by [facility]. It has not been cleared o r approvedby the Food and Drug Administration.[facility] CLIA ID Number [id number] test was performed using PCR (Polymerase ChainReaction)/SSOP (Sequence Specific Oligonucleotide Probes)technique. SBT (Sequence Based Typing) and/or SSP(Sequence Specific Primers) may be used as supplementalmethods when necessary. Please contact [facility] CustomerService at if you have any questions. Director of [facility] Laboratory Dr Raghu Bowles, PhD 8-Ojc-343314:41 Protein+Creatinine Ratio,Urine Comments: [facility] [address] [facility] [address] [place], [place], [id number] PROT:CRE RATIO 102 {mg/g_CRE} (Normal) Range: 0-200 PROTEIN,UR.RAN. 17.0 mg/dL (Abnormal) UR CREAT 166.00 mg/dL (Normal) 5-Nhm-977065:41 Urinalysis, Routine (Dipstick) Comments: How was Urine Obtained? [facility] [address] [facility] [place], [place], [id number] LEUK ESTERASE 25 /ul (Abnormal) OCCULT BLOOD-UR 10 /ul (Abnormal) NITRITE UR Negative (Normal) UROBILI 4 mg/dL (Abnormal) PROT DIPSTX Negative mg/dL (Normal) pH UR 7.0 (Normal) Range: 5.0 - 8.0 SP.GR. DIPSTX 1.015 (Normal) Range: 1.002-1.030 KETONE UR Negative mg/dL (Normal) BILIRUBIN URINE Negative mg/dL (Normal) GLUCOSE, UR Normal mg/dL (Normal) CLARITY Clear (Normal) COLOR Yellow (Normal) 7-Pvw-841339:35 CBC, Platelets & Auto Diff Comments: PATIENT NOT FASTINGPERFORMED BY: [facility] [id number] [facility] [id number] ([id number]) Immature Grans (Abs) 0.0 {x10E3/uL} (Normal) Range: [...] 4.14-5.80 WBC 8.2 {x10E3/uL} (Normal) Range: 3.4-10.8 91-Nvp-145043:24 Systemic Lupus Profile A Comments: PATIENT NOT FASTINGPERFORMED BY: [facility]32 [facility] [id number] Anti-DNA (DS) Ab Qn 16 {IU/mL} Range: 0-9 (Abnormal) Comments: Negative <5 Equivocal 5 - 9 Positive >9 Sjogren's Anti-SS-B <0.2 {AI} (Normal) Range: 0.0-0.9 Sjogren's Anti-SS-A <0.2 {AI} (Normal) Range: 0.0-0.9 Antichromatin Antibodies 0.3 {AI} (Normal) Range: 0.0-0.9 RA Latex Turbid. <10.0 {IU/mL} Range: 0.0-13.9 (Normal) Diaz Antibodies <0.2 {AI} (Normal) Range: 0.0-0.9 ORDER PROCESSING CLERK Antibodies <0.2 {AI} (Normal) Range: 0.0-0.9 17-May-2018 Written Authorization WAR (Normal) Comments: PATIENT NOT FASTINGPERFORMED BY: [facility] [id number] [facility] [id number] 11:24 Comments: Written Authorization Received.Authorization received from SHALINI VELAZQUEZ LPN [id number] by Yoli Mcginnis 87-Nnm-988344:24 HGB A1C ([id number]) Comments: PATIENT NOT FASTINGPERFORMED BY: [facility] Zuqkgr3612 [facility] [id number] Hemoglobin A1c 5.7 % (Abnormal) Range: 4.8-5.6 Comments: . Pre-diabetes: 5.7 - 6.4 Diabetes: >6.4 Glycemic control for adults with diabetes: <7.0 19-Lku-287814:24 EBV ACUTE PFOF IgG/IgM Comments: PATIENT NOT FASTINGPERFORMED BY: [facility] Xoqhwj9354 [facility] [id number] ([id number]) Interpretation: [facility] (Normal) Comments: EBV Interpretation Chart . Interpretation [...] <36.0 Equivocal 36.0 - 43.9 Positive >43.9 :24 CMV IGM ANTBDY ([id number]) Comments: PATIENT NOT FASTINGPERFORMED BY: [facility] Pzkveb9697 [facility] [id number] Cytomegalovirus (CMV) Ab, IgM <30.0 AU/mL (Normal) Range: 0.0-29.9 Comments: Negative <30.0 Equivocal 30.0 - 34.9 Positive >34.9 A positive result is generally indicative of acute infection, reactivation or persistent IgM production. :24 CALCIFIDIOL (72934) VIT D 25 Comments: PATIENT NOT FASTINGPERFORMED BY: [facility] Lmtmqg9884 [facility] [id number] Vitamin D, 25-Hydroxy 63.7 ng/mL (Normal) Range: 30.0-100.0 Comments: Vitamin D deficiency has been defined by the [place] ofCleveland Clinic Foundationcine and an Endocrine Society practice guideline as alevel of serum 25-OH vitamin D less than 20 ng/mL (1,2).The Endocrine Society went on to further define vitamin Dinsufficiency as a level between 21 and 29 ng/mL (2).1. IOM ([place] of Medicine). 2010. Dietary reference intakes for calcium and D. [place]: The National Academies Press.2. Clifton MF, Robbi NC, Ladarius GONZALES, et al. Evaluation, treatment, and prevention of vitamin D deficiency: an Endocrine Society clinical practice guideline. JCEM. 2010; 96(7):1911-30. 52-Hxx-241355:24 VITAMIN B-12 (CYANOCOBALAMIN) Comments: PATIENT NOT FASTINGPERFORMED BY: [facility] Ehiqax5266 [facility] [id number] ([id number]) Vitamin B12 476 pg/mL (Normal) Range: 232-1245 52-Tjd-448386:24 TSH (51229) Comments: PATIENT NOT FASTINGPERFORMED BY: [facility] Yveqnk5855 [facility] [id number] TSH 0.509 {uIU/mL} (Normal) Range: 0.450-4.500 84-Npi-666694:24 SED RATE ERYTHROCYTE (36791) Comments: PATIENT NOT FASTINGPERFORMED BY: [facility] CenterBoxufo3535 [facility] [id number] Sedimentation Rate-Westergren 2 mm/h (Normal) Range: 0-30 49-Lbm-071646:24 METABOLIC PANEL, COMPREHENSIVE Comments: PATIENT NOT FASTINGPERFORMED BY: [facility] Gyasyf4542 [facility] [id number] (27981) ALT (SGPT) 15 [iU]/L (Normal) Range: 0-44 [...] 8-27 Glucose 101 mg/dL (Abnormal) Range: 65-99 36-Wvt-412091:24 C-REACTIVE PROTEIN (74957) Comments: PATIENT NOT FASTINGPERFORMED BY: [place] 5452470 [facility] [id number] C-Reactive Protein, Quant 5.5 mg/L (Abnormal) Range: 0.0-4.9 58-Qcp-880095:24 CBC (AUTO) (10726) Comments: PATIENT NOT FASTINGPERFORMED BY: [address] [id number] Platelets 232 {x10E3/uL} (Normal) Range: 150-379 RDW 13.4 % (Normal) Range: 12.3-15.4 MCHC 34.2 g/dL (Normal) Range: 31.5-35.7 MCH 33.3 pg (Abnormal) Range: 26.6-33.0 MCV 97 fL (Normal) Range: 79-97 Hematocrit 47.9 % (Normal) Range: 37.5-51.0 Hemoglobin 16.4 g/dL (Normal) Range: 13.0-17.7 RBC 4.92 {x10E6/uL} (Normal) Range: 4.14-5.80 WBC 7.0 {x10E3/uL} (Normal) Range: 3.4-10.8 95-Wsl-350094:24 ALISON (ANTINUCLEAR ANTIBODY) Comments: PATIENT NOT FASTINGPERFORMED BY: [address] [id number] (59171) ALISON Direct Positive (Abnormal) :41 MAGNESIUM (01163) Comments: PATIENT NOT FASTINGPERFORMED BY: [place] 5452470 [facility] [id number] Magnesium 2.2 mg/dL (Normal) Range: 1.6-2.3 83-Yst-53918:41 TSH (36176) Comments: PATIENT NOT FASTINGPERFORMED BY: [address] [id number] TSH 1.070 {uIU/mL} (Normal) Range: 0.450-4.500 95-Kwb-47871:41 CBC, Platelets & Auto Diff Comments: PATIENT NOT FASTINGPERFORMED BY: [facility]6370 [facility] [id number] (00829) Immature Grans (Abs) 0.0 {x10E3/uL} (Normal) Range: [...] 4.14-5.80 WBC 8.3 {x10E3/uL} (Normal) Range: 3.4-10.8 45-Etz-79837:41 Metabolic Panel, Comprehensive Comments: PATIENT NOT FASTINGPERFORMED BY: [facility]6370 [facility] [id number] (23620) ALT (SGPT) 16 [iU]/L (Normal) Range: 0-44 [...] 8-27 Glucose 99 mg/dL (Normal) Range: 65-99 42-Vbp-082049:20 HgA1C , Office (80568) HgA1C , Office 5.5 % (Normal) Range: 4.6 - 7.1 :31 LIPID PANEL (58065) Comments: PATIENT WAS FASTINGPERFORMED BY: LabCoJersey Shore University Medical CenterFjyrdd4769 [facility] [id number] LDL/HDL Ratio 2.1 {ratio_units} (Normal) Range: 0.0-3.6 [...] 173 mg/dL (Normal) Range: 100-199 :31 CALCIFEDIOL (04793) Comments: PATIENT WAS FASTINGPERFORMED BY: [facility]6370 [facility] [id number] Vitamin D, 25-Hydroxy 54.2 ng/mL (Normal) Range: 30.0-100.0 Comments: Vitamin D deficiency has been defined by the [place] of[place]icine and an Endocrine Society practice guideline as alevel of serum 25-OH vitamin D less than 20 ng/mL (1,2).The Endocrine Society went on to further define vitamin Dinsufficiency as a level between 21 and 29 ng/mL (2).1. IOM ([place] of Medicine). 2010. Dietary reference intakes for calcium and D. [place]: The National Academies Press.2. Clifton MF, Robbi MADRID, Ladarius GONZALES, et al. Evaluation, treatment, and prevention of vitamin D deficiency: an Endocrine Society clinical practice guideline. JCEM. 2010; 96(7):1911-30. :31 CBC, Platelets & Auto Diff Comments: PATIENT WAS FASTINGPERFORMED BY: LabCoNew Mexico Behavioral Health Institute at Las VegasOsbttv5112 [facility] [id number] (91208) Immature Grans (Abs) 0.0 {x10E3/uL} (Normal) Range: [...] 6.4 {x10E3/uL} (Normal) Range: 3.4-10.8 :31 TSH (49278) Comments: PATIENT WAS FASTINGPERFORMED BY: Diagnostic InnovationsNew Mexico Behavioral Health Institute at Las VegasIqhltn5488 [facility] [id number] TSH 0.564 {uIU/mL} (Normal) Range: 0.450-4.500 :31 Metabolic Panel, Comprehensive Comments: PATIENT WAS FASTINGPERFORMED BY: TapMetricsNew Mexico Behavioral Health Institute at Las VegasIojesl8647 [facility] [id number] (06524) ALT (SGPT) 11 [iU]/L (Normal) Range: 0-44 [...] Glucose, Serum 110 mg/dL (Abnormal) Range: 65-99 :03 CALCIFEDIOL (91025) Comments: today; PATIENT NOT FASTINGPERFORMED BY: [employer]70 [facility]At[facility] [id number] Vitamin D, 25-Hydroxy 51.0 ng/mL (Normal) Range: 30.0-100.0 Comments: Vitamin D deficiency has been defined by the [place] ofMedicine and an Endocrine Society practice guideline as alevel of serum 25-OH vitamin D less than 20 ng/mL (1,2).The Endocrine Society went on to further define vitamin Dinsufficiency as a level between 21 and 29 ng/mL (2).1. IOM ([place] of Medicine). 2010. Dietary reference intakes for calcium and D. [place]: The National Academies Press.2. Clifton MF, Robbi NC, Ladarius GONZALES, et al. Evaluation, treatment, and prevention of vitamin D deficiency: an Endocrine Society clinical practice guideline. JCEM. 2010; 96(7):1911-30. :03 VITAMIN B12 AND FOLATES Comments: today; PATIENT NOT FASTINGPERFORMED BY: [employer]70 [facility]sAt[facility] [id number] (40817) Folate (Folic Acid), Serum 10.2 ng/mL (Normal) Comments: A serum folate concentration of less than 3.1 ng/mL isconsidered to represent clinical deficiency. Vitamin B12 1184 pg/mL (Abnormal) Range: 211-946 :03 MAGNESIUM (92990) Comments: today; PATIENT NOT FASTINGPERFORMED BY: Element [id number] [place] Mindsin [place] [id number] Magnesium, Serum 2.1 mg/dL (Normal) Range: 1.6-2.3 3-Ebx-610954:09 T4, FREE (THYROXINE) (39914) Comments: PATIENT NOT FASTINGPERFORMED BY: LabP[facility]6370 [facility] [id number] T4,Free(Direct) 1.03 ng/dL (Normal) Range: 0.82-1.77 2-Kyd-447618:09 T3, FREE (TRIDOTHYRONINE) (58309) Comments: PATIENT NOT FASTINGPERFORMED BY: [facility]6370 [facility] [id number] Triiodothyronine,Free,Serum 3.7 pg/mL (Normal) Range: 2.0-4.4 9-Vio-530041:09 TSH (THYROID STIMULATING Comments: PATIENT NOT FASTINGPERFORMED BY: [facility]6370 [facility] [id number] HORMONE) (21697) TSH 0.464 {uIU/mL} (Normal) Range: 0.450-4.500 90-Izl-187983:47 CBC, Platelets & Auto Diff Comments: PATIENT NOT FASTINGPERFORMED BY: [facility]ie[facility] Hospital6370 [facility] [id number] (25706) Immature Grans (Abs) 0.0 {x10E3/uL} (Normal) Range: [...] 4.14-5.80 WBC 6.9 {x10E3/uL} (Normal) Range: 3.4-10.8 :47 CPK TOTAL & ISOENZYMES (49127) Comments: PATIENT NOT FASTINGPERFORMED BY: Diagnostic InnovationsJersey Shore University Medical CenterAiqhpk2635 [facility] [id number] CK-BB 0 % (Normal) CK-MB 0 % (Normal) Range: 0-3 Macro Type 1 0 % (Normal) CK-MM 100 % (Normal) Range: 97-100 Macro Type 2 0 % (Normal) Creatine Kinase,Total,Serum 182 U/L (Normal) Range: 24-204 :47 CALCIFEDIOL (55380) Comments: PATIENT NOT FASTINGPERFORMED BY: Diagnostic InnovationsJersey Shore University Medical CenterYzlcqd4079 [facility] [id number] Vitamin D, 25-Hydroxy 45.7 ng/mL (Normal) Range: 30.0-100.0 Comments: Vitamin D deficiency has been defined by the [place] ofCleveland Clinic Foundationcine and an Endocrine Society practice guideline as alevel of serum 25-OH vitamin D less than 20 ng/mL (1,2).The Endocrine Society went on to further define vitamin Dinsufficiency as a level between 21 and 29 ng/mL (2).1. IOM ([place] of Medicine). 2010. Dietary reference intakes for calcium and D. [place]: The National Academies Press.2. Clifton MF, Robbi MADRID, Ladarius GONZALES, et al. Evaluation, treatment, and prevention of vitamin D deficiency: an Endocrine Society clinical practice guideline. JCEM. 2010; 96(7):1911-30. :47 TSH (THYROID STIMULATING Comments: PATIENT NOT FASTINGPERFORMED BY: [facility] Piogfh8733 [facility] [id number] HORMONE) (95197) TSH 0.367 {uIU/mL} (Abnormal) Range: 0.450-4.500 22-Xxu-101073:42 PSA (Medicare - [id number]) Comments: today; PATIENT NOT FASTINGPERFORMED BY: CB [facility] Gzyppi7147 [facility] [id number]; OV 01/25/17 (21318) Prostate Specific Ag, 0.6 ng/mL (Normal) Range: 0.0-4.0 Serum Comments: AnchantoIA methodology. .According to the [place] [employer], Serum PSA shoulddecrease and remain at undetectable levels after radicalprostatectomy. The AUA defines biochemical recurrence as an initialPSA value 0.2 ng/mL or greater followed by a subsequent confirmatoryPSA value 0.2 ng/mL or greater.Values obtained with d ifferent assay methods or kits cannot be usedinterchangeably. Results cannot be interpreted as absolute evidenceof the presence or absence of malignant disease. 14-Ohj-774128:10 CBC, Platelets & Auto Diff Comments: PATIENT WAS FASTINGPERFORMED BY: FeastieCorp Lepwmp9231 [facility] [id number] (43161) Immature Grans (Abs) 0.0 {x10E3/uL} (Normal) Range: [...] 4.14-5.80 WBC 7.2 {x10E3/uL} (Normal) Range: 3.4-10.8 94-Cmb-475388:10 TSH (57047) Comments: PATIENT WAS FASTINGPERFORMED BY: [employer] Tpzign8810 [facility] [id number] TSH 0.537 {uIU/mL} (Normal) Range: 0.450-4.500 43-Ykl-414964:10 Metabolic Panel, Comprehensive Comments: PATIENT WAS FASTINGPERFORMED BY: LabCoJersey Shore University Medical CenterVrjagu5428 [facility] [id number]; ov 01/21 (12103) ALT (SGPT) 16 [iU]/L (Normal) Range: 0-44 [...] Glucose, Serum 83 mg/dL (Normal) Range: 65-99 11-Aro-284185:10 Lipid Panel (63967) Comments: PATIENT WAS FASTINGPERFORMED BY: [employer]70 [facility]sAt[facility] [id number] LDL/HDL Ratio 2.0 {ratio_units} (Normal) Range: 0.0-3.6 Comments: LDL/HDL Ratio Men Women 1/2 Avg.Risk 1.0 1.5 Av g.Risk 3.6 3.2 2X Avg.Risk 6.2 5.0 3X Avg.Risk 8.0 6.1 LDL Cholesterol Calc 106 mg/dL (Abnormal) Range: 0-99 VLDL Cholesterol Micah 18 mg/dL (Normal) Range: 5-40 HDL Cholesterol 52 mg/dL (Normal) Triglycerides 88 mg/dL (Normal) Range: 0-149 Cholesterol, Total 176 mg/dL (Normal) Range: 100-199 95-Vzx-071141:10 CALCIFEDIOL (07593) Comments: PATIENT WAS FASTINGPERFORMED BY: Element [id number] [facility]sAt[facility] [id number] Vitamin D, 25-Hydroxy 42.8 ng/mL (Normal) Range: 30.0-100.0 Comments: Vitamin D deficiency has been defined by the [place] of[place]icine and an Endocrine Society practice guideline as alevel of serum 25-OH vitamin D less than 20 ng/mL (1,2).The Endocrine Society went on to further define vitamin Dinsufficiency as a level between 21 and 29 ng/mL (2).1. IOM ([place] of Medicine). 2010. Dietary reference intakes for calcium and D. [place]: The National Academies Press.2. Clifton MF, Robbi MADRID, Ladarius GONZALES, et al. Evaluation, treatment, and prevention of vitamin D deficiency: an Endocrine Society clinical practice guideline. JCEM. 2010; 96(7):1911-30. :50 Basic Metabolic Profile (BMP) Comments: 'TROP' Serial specimen #1, #2, #3, or #4: [address] [place] [address] Aognudziwm7831 [place], [address] GAP 3 (Abnormal) Range: 5-15 CO2 26.0 [...] <126 mg/dLsuggests IMPAIRED HOMEOSTASIS per A.D.A. criteria. :50 CBC W/Diff, Automated Comments: [facility] [address] [place], [address] ; another doc Absolute Lymph 1.21 {X10_3/ul} [...] Serial specimen #1, #2, #3, or #4: [facility] Lmocrcarns[address] [place], [address] TROPONIN-I < 0.02 ng/mL (Normal) Comments: TROPONIN-I EXPECTED VALUES <0.05 NEGATIVE 0.06 - 0.59 AT RISK OF OK > OR = 0.60 SUGGEST OK :40 TESTOSTERONE FREE (25170) Comments: PATIENT NOT FASTINGPERFORMED BY: [address] [id number] Free Testosterone(Direct) 5.8 pg/mL (Abnormal) Range: 6.6-18.1 53-Nry-870026:40 TSH (THYROID STIMULATING Comments: PATIENT NOT FASTINGPERFORMED BY: [address] [id number] BY: [address] [id number] HORMONE) (16225) TSH 0.600 {uIU/mL} (Normal) Range: 0.450-4.500 :40 TESTOSTERONE ,TOT/FREE Comments: PATIENT NOT FASTINGPERFORMED BY: Feastie[address] [id number] BY: [address] [id number] (41702) Free Testosterone(Direct) 5.2 pg/mL (Abnormal) Range: 6.6-18.1 Comment: TESTM (Normal) Comments: Adult male reference interval is based on a population of lean malesup to 40 years old. Testosterone, Serum 275 ng/dL (Abnormal) Range: 348-1197 10-Usd-319065:40 PT (PROTHROMBIN TIME) Comments: PATIENT NOT FASTINGPERFORMED BY: [address] [id number] BY: [address] [id number] (62037) Prothrombin Time 10.4 {sec} (Normal) Range: 9.1-12.0 INR 1.0 (Normal) Range: 0.8-1.2 Comments: Reference interval is for non-anticoagulated patients. . Suggested INR therapeutic range for Vitamin K anta gonist therapy: Standard Dose (moderate intensity therapeutic range): 2.0 - 3.0 Higher intensity therapeutic range 2.5 - 3.5 78-Jck-676526:40 CBC, PLATELETS & AUT DIFF Comments: PATIENT NOT FASTINGPERFORMED BY: Diagnostic InnovationsDavid Ville 1969170 [facility] [id number] BY: Feastie[address] [id number] (65732) Immature Grans (Abs) 0.0 {x10E3/uL} (Normal) Range: [...] 4.14-5.80 WBC 7.8 {x10E3/uL} (Normal) Range: 3.4-10.8 14-Gdq-268864:40 Metabolic Panel, Basic Comments: PATIENT NOT FASTINGPERFORMED BY: Diagnostic InnovationsJersey Shore University Medical CenterKgreui2957 [facility] [id number] BY: Feastie[address] [id number] (97698) Calcium, Serum 8.9 mg/dL (Normal) Range: 8.6-10.2 [...] Glucose, Serum 88 mg/dL (Normal) Range: 65-99 29-Apr-20169:46 Metabolic Panel, Comments: PATIENT NOT FASTINGPERFORMED BY: LabCoJersey Shore University Medical CenterXvclvk5084 [facility] [id number] Information: [id number] Comprehensive (46477) ALT (SGPT) 11 [iU]/L (Normal) Range: 0-44 [...] (THYROID STIMULATING Comments: PATIENT NOT FASTINGPERFORMED BY: SemEquipAt[facility] Health [facility] [id number] HORMONE) (88599) TSH 0.483 {uIU/mL} (Normal) Range: 0.450-4.500 :46 MAGNESIUM (63509) Comments: PATIENT NOT FASTINGPERFORMED BY: Tarana WirelessWakeMed [facility] Hospital [id number] Magnesium, Serum 1.9 mg/dL (Normal) Range: 1.6-2.3 :53 MICROALBUMIN: CREATININE RATIO Comments: PATIENT NOT FASTINGPERFORMED BY: Tarana WirelessWakeMed [facility] Hospital [id number] (90052) AND (33216) Microalb/Creat Ratio 3.2 {mg/g_creat} (Normal) Range: 0.0-30.0 Microalbumin, Urine 4.2 ug/mL (Normal) Range: 0.0-17.0 Creatinine, Urine 130.8 mg/dL (Normal) Range: 22.0-328.0 :53 URINALYSIS (53871) Comments: PATIENT NOT FASTINGPERFORMED BY: [employer] [facility] [employer] [facility] [id number] Information: [id number] Microscopic Examination MICNIP (Normal) Comments: Microscopic not indicated and not performed. Nitrite, Urine Negative (Normal) Urobilinogen,Semi-Qn 1.0 mg/dL (Normal) Range: 0.2-1.0 Bilirubin Negative (Normal) Occult Blood Negative (Normal) Ketones Negative (Normal) Glucose Negative (Normal) Protein Negative (Normal) WBC Esterase Negative (Normal) Appearance Clear (Normal) Urine-Color Yellow (Normal) pH 7.0 (Normal) Range: 5.0-7.5 Specific [place] 1.027 (Normal) Range: 1.005-1.030 :56 PSA (PROSTATE SPECIFIC Comments: PATIENT WAS FASTINGPERFORMED BY: Element [id number] [facility] [id number] ANTIGEN) (V76.44) Prostate Specific Ag, 0.6 ng/mL (Normal) Range: 0.0-4.0 Serum Comments: AnchantoIA methodology. .According to the [place] [employer], Serum PSA shoulddecrease and remain [...] PANEL, COMPREHENSIVE Comments: PATIENT WAS FASTINGPERFORMED BY: Element [id number] [facility] [id number] (80712) ALT (SGPT) 12 [iU]/L (Normal) Range: 0-44 [...] Glucose, Serum 106 mg/dL (Abnormal) Range: 65-99 :56 LIPID PANEL (52869) Comments: PATIENT WAS FASTINGPERFORMED BY: [facility]EquipAt[facility] Health [facility] [id number] LDL/HDL Ratio 2.4 {ratio_units} (Normal) Range: 0.0-3.6 [...] auto diff Comments: PATIENT WAS FASTINGPERFORMED BY: Element [id number] [facility] [id number] Information: [id number] (50472) Immature Grans (Abs) 0.0 {x10E3/uL} (Normal) Range: [...] 4.14-5.80 WBC 7.3 {x10E3/uL} (Normal) Range: 3.4-10.8 01-Dec-20158:56 CALCIFIDIOL (93227) VIT D 25 Comments: PATIENT WAS FASTINGPERFORMED BY: LabCoJersey Shore University Medical CenterEmlvhx0449 [facility] [id number] Vitamin D, 25-Hydroxy 45.0 ng/mL (Normal) Range: 30.0-100.0 Comments: Vitamin D deficiency has been defined by the [place] ofMedicine and an Endocrine Society practice guideline as alevel of serum 25-OH vitamin D less than 20 ng/mL (1,2).The Endocrine Society went on to further define vitamin Dinsufficiency as a level between 21 and 29 ng/mL (2).1. IOM ([place] of Medicine). 2010. Dietary reference intakes for calcium and D. [place]: The National Academies Press.2. Clifton MF, Robbi NC, Ladarius GONZALES, et al. Evaluation, treatment, and prevention of vitamin D deficiency: an Endocrine Society clinical practice guideline. JCEM. 2010; 96(7):1911-30. :20 HgA1C , Office (85396) HgA1C , Office 5.9 % (Normal) Range: 4.6 - 7.1 :36 Vitamin B-12 (cyanocobalamin) Comments: PATIENT NOT FASTINGPERFORMED BY: [facility] Hxursh1182 Perry RoadDublin [place] [id number] (23576) Vitamin B12 1444 pg/mL (Abnormal) Range: 211-946 :36 CALCIFIDIOL (59825) VIT D 25 Comments: PATIENT NOT FASTINGPERFORMED BY: CB [facility] Iihotf6423 Perry RoadDublin [place] [id number] Vitamin D, 25-Hydroxy 32.0 ng/mL (Normal) Range: 30.0-100.0 Comments: Vitamin D deficiency has been defined by the [place] ofCleveland Clinic Foundationcine and an Endocrine Society practice guideline as alevel of serum 25-OH vitamin D less than 20 ng/mL (1,2).The Endocrine Society went on to further define vitamin Dinsufficiency as a level between 21 and 29 ng/mL (2).1. IOM ([place] of Medicine). 2010. Dietary reference intakes for calcium and D. [place]: The National Academies Press.2. Clifton MF, Robbi NC, Ladarius GONZALES, et al. Evaluation, treatment, and prevention of vitamin D deficiency: an Endocrine Society clinical practice guideline. JCEM. 2010; 96(7):1911-30. :36 TSH (10344) Comments: PATIENT NOT FASTINGPERFORMED BY: CB [facility] Lgsmhd9190 Perry RoadDublin [place] [id number] Information: [id number] TSH 0.575 {uIU/mL} (Normal) Range: 0.450-4.500 :51 CBC With Differential/Platelet Comments: PATIENT WAS FASTINGPERFORMED BY: CB [facility] Vkkvms1555 Perry RoadDublin [place] [id number] Information: [id number] Immature Grans (Abs) 0.0 {x10E3/uL} (Normal) Range: [...] 4.14-5.80 WBC 7.3 {x10E3/uL} (Normal) Range: 3.4-10.8 1-Kys-594551:51 Comp. Metabolic Panel (14) Comments: PATIENT WAS FASTINGPERFORMED BY: LabCoJersey Shore University Medical CenterDyfszu0566 [facility] [id number] ALT (SGPT) 15 [iU]/L (Normal) Range: 0-44 [...] With LDL/HDL Comments: PATIENT WAS FASTINGPERFORMED BY: [facility]EquipAt[facility] [id number] Ratio LDL/HDL Ratio 2.1 {ratio_units} Range: 0.0-3.6 [...] pg/mL (Normal) Comments: PATIENT WAS FASTINGPERFORMED BY: [employer]70 [facility] [id number] 1:51 Range: 211-946 Vitamin D, 25-Hydroxy 40.7 ng/mL (Normal) Comments: PATIENT WAS FASTINGPERFORMED BY: [facility]ieB[facility] Ydchlp8820 [facility] [id number] 1:51 Range: 30.0-100.0 Comments: Vitamin D deficiency has been defined by the [place] ofMedicine and an Endocrine Society practice guideline as alevel of serum 25-OH vitamin D less than 20 ng/mL (1,2).The Endocrine Society went on to further define vitamin Dinsufficiency as a level between 21 and 29 ng/mL (2).1. IOM ([place] of Medicine). 2010. Dietary reference intakes for calcium and D. [place]: The National Academies Press.2. Robbi Morales, Ladarius GONZALES, et al. Evaluation, treatment, and prevention of vitamin D deficiency: an Endocrine Society clinical practice guideline. JCEM. 2010; 96(7):1911-30. 73-Yjk-898277:22 CALCIFIDIOL (55179) VIT D Comments: PATIENT NOT FASTINGPERFORMED BY: [facility]ieB[facility] Lsvglf6495 [facility] [id number] Information: [id number] 25 Vitamin D, 25-Hydroxy 31.8 ng/mL (Normal) Range: 30.0-100.0 Comments: Vitamin D deficiency has been defined by the [place] ofMedicine and an Endocrine Society practice guideline as alevel of serum 25-OH vitamin D less than 20 ng/mL (1,2).The Endocrine Society went on to further define vitamin Dinsufficiency as a level between 21 and 29 ng/mL (2).1. IOM ([place] of Medicine). 2010. Dietary reference intakes for calcium and D. [place]: The National Academies Press.2. Robbi Morales, Ladarius GONZALES, et al. Evaluation, treatment, and prevention of vitamin D deficiency: an Endocrine Society clinical practice guideline. JCEM. 2010; 96(7):1911-30. One Specimen SPRCS (Normal) Comments: PATIENT NOT FASTINGPERFORMED BY: [facility] Hospitalton1447 [facility] [id number] BY: [facility]6370 [facility] [id number] 1:25 Identifier Comments: The specimen received included only one patient identifier on theprimary collection container. Our laboratory accrediting agencystates All primary specimen containers must be labeled with 2identifiers at the time of collection. 96-Gax-846892:25 THIAMINE (B-1) (88034) Comments: PATIENT NOT FASTINGPERFORMED BY: Diagnostic InnovationsTrinitas HospitalEhcuroygqf2945 [facility] [id number] BY: [facility]iePontiac General Hospital6370 [facility] [id number] Vit. B1, Whole Blood 159.7 nmol/L (Normal) Range: 66.5-200.0 44-Rga-956214:08 CBC (Auto) (10480) Comments: PATIENT WAS FASTINGPERFORMED BY: [facility]6370 [facility] [id number] Information: [id number] Platelets 202 {x10E3/uL} (Normal) Range: 150-379 RDW 12.6 % (Normal) Range: 12.3-15.4 MCHC 34.3 g/dL (Normal) Range: 31.5-35.7 MCH 31.3 pg (Normal) Range: 26.6-33.0 MCV 91 fL (Normal) Range: 79-97 Hematocrit 44.0 % (Normal) Range: 37.5-51.0 Hemoglobin 15.1 g/dL (Normal) Range: 12.6-17.7 RBC 4.83 {x10E6/uL} (Normal) Range: 4.14-5.80 WBC 8.2 {x10E3/uL} (Normal) Range: 3.4-10.8 39-Jyo-445219:08 PTT (Activated Partial Comments: PATIENT WAS FASTINGPERFORMED BY: [facility]6370 [facility] [id number] Thromboplastin Time) (16135) aPTT 31 {sec} (Normal) Range: 24-33 Comments: This test has not been validated for monitoring unfractionated heparintherapy. aPTT-based therapeutic ranges for unfractionated heparintherapy have not been established. For general guidelines onHeparin monitoring, refer to the [facility] Directory of Services. :08 PT (Prothrobim Time) (72086) Comments: PATIENT WAS FASTINGPERFORMED BY: SATHISH [facility]6370 [facility] [id number] Prothrombin Time 10.4 {sec} (Normal) Range: 9.1-12.0 INR 1.0 (Normal) Range: 0.8-1.2 Comments: Reference interval is for non-anticoagulated patients. . Suggested INR therapeutic range for Vitamin K anta gonist therapy: Standard Dose (moderate intensity therapeutic range): 2.0 - 3.0 Higher intensity therapeutic range 2.5 - 3.5 :09 CALCIFIDIOL (17676) VIT D 25 Comments: PATIENT WAS FASTINGPERFORMED BY: SATHISH [facility]6370 [facility] [id number] Vitamin D, 25-Hydroxy 15.8 ng/mL (Abnormal) Range: 30.0-100.0 Comments: Vitamin D deficiency has been defined by the [place] of[place] and an Endocrine Society practice guideline as alevel of serum 25-OH vitamin D less than 20 ng/mL (1,2).The Endocrine Society went on to further define vitamin Dinsufficiency as a level between 21 and 29 ng/mL (2).1. IOM ([place] of [employer]). 2010. Dietary reference intakes for calcium and D. [place]: The National Academies Press.2. Clifton MF, Robbi NC, Ladarius GONZALES, et al. Evaluation, treatment, and prevention of vitamin D deficiency: an Endocrine Society clinical practice guideline. JCEM. 2010; 96(7):1911-30. :09 Vitamin B-12 (cyanocobalamin) Comments: PATIENT WAS FASTINGPERFORMED BY: [facility]6370 [facility] [id number] (71763) Vitamin B12 399 pg/mL (Normal) Range: 211-946 76-Hqz-838868:09 METABOLIC PANEL, Comments: PATIENT WAS FASTINGPERFORMED BY: SATHISH TeamStreamzlin6370 [facility] [id number] Information: [id number],2ND ORDER COMPREHENSIVE (40260) ALT (SGPT) 15 [iU]/L (Normal) Range: 0-44 [...] Glucose, Serum 86 mg/dL (Normal) Range: 65-99 88-Cgj-834348:09 LIPID PANEL (10341) Comments: PATIENT WAS FASTINGPERFORMED BY: [facility] InnovationsJersey Shore University Medical CenterKhnshq1721 [facility] [id number] LDL/HDL Ratio 2.0 {ratio_units} (Normal) Range: 0.0-3.6 [...] Cholesterol, Total 132 mg/dL (Normal) Range: 100-199 7-Ymk-224094:05 Microscopic Examination Comments: PATIENT NOT FASTINGPERFORMED BY: [facility] InnovationsJersey Shore University Medical CenterNjygif3112 [facility] [id number] Bacteria Few (Normal) Mucus Threads Present (Normal) Epithelial Cells (non renal) 0-10 {/hpf} (Normal) Range: 0 - 10 RBC 0-2 {/hpf} (Normal) Range: 0 - 2 WBC 6-10 {/hpf} (Abnormal) Range: 0 - 5 1-Sox-071640:05 URINALYSIS (50029) Comments: PATIENT NOT FASTINGPERFORMED BY: [facility] InnovationsJersey Shore University Medical CenterEfmirx0381 [facility] [id number] Information: [id number] Microscopic Examination See below: (Normal) Comments: Microscopic was indicated and was performed. Nitrite, Urine Negative (Normal) Urobilinogen,Semi-Qn 1.0 mg/dL (Normal) Range: 0.0-1.9 Bilirubin Negative (Normal) Occult Blood Negative (Normal) Ketones Negative (Normal) Glucose Negative (Normal) Protein Negative (Normal) WBC Esterase Trace (Abnormal) Appearance Clear (Normal) Urine-Color Yellow (Normal) pH 6.0 (Normal) Range: 5.0-7.5 Specific [place] 1.023 (Normal) Range: 1.005-1.030 :12 PSA (PROSTATE SPECIFIC Comments: PATIENT NOT FASTINGPERFORMED BY: [place] 9493970 [facility] [id number] Information: [id number] ANTIGEN) (V76.44) Prostate Specific Ag, 0.5 ng/mL (Normal) Range: 0.0-4.0 Serum Comments: Mónica ECLIA methodology. .According to the [place] [employer], Serum PSA shoulddecrease and remain at undetectable levels after radicalprostatectomy. The AUA defines biochemical recurrence as an initialPSA value 0.2 ng/mL or greater followed by a subsequent confirmatoryPSA value 0.2 ng/mL or greater.Values obtained with d ifferent assay methods or kits cannot be usedinterchangeably. Results cannot be interpreted as absolute evidenceof the presence or absence of malignant disease. 41-Jag-085922:16 HgA1C , Office (22048) HgA1C , Office 5.7 % (Normal) Range: 4.6 - 7.1 15-Yzt-934885:31 Ethanol, Blood Comments: PATIENT WAS FASTINGPERFORMED BY: [facility] [id number] BY: [place] 5452470 [facility] [id number] Inf ormation: [id number] Ethanol 0.094 % (Normal) Comments: Verified by repeat analysis Written Authorization WAR (Normal) Comments: PATIENT WAS FASTINGPERFORMED BY: [facility] [id number] BY: [place] 5452470 [facility] [id number] :31 Comments: Written Authorization Received.Authorization received from PER ORIGINAL ORDER [id number] by Avelina Glez 72-Yuu-673058:37 PTT (Activated Partial Comments: PATIENT WAS FASTINGPERFORMED BY: Feastie[address] [id number] BY: [address] [id number] Thromboplastin Time) (29781) aPTT 31 {sec} (Normal) Range: 24-33 Comments: This test has not been validated for monitoring unfractionated heparintherapy. aPTT-based therapeutic ranges for unfractionated heparintherapy have not been established. For general guidelines onHeparin monitoring, refer to the [facility] Directory of Services. 53-Bow-680007:37 PT (Prothrobim Time) Comments: PATIENT WAS FASTINGPERFORMED BY: LabCoJersey Shore University Medical CenterKhfvmd2881 [facility] [id number] BY: [address] [id number] (69862) Prothrombin Time 10.9 {sec} (Normal) Range: 9.1-12.0 INR 1.0 (Normal) Range: 0.8-1.2 Comments: Reference interval is for non-anticoagulated patients. . Suggested INR therapeutic range for Vitamin K anta gonist therapy: Standard Dose (moderate intensity therapeutic range): 2.0 - 3.0 Higher intensity therapeutic range 2.5 - 3.5 5-Zti-041751:37 DRUG SCREEN (77548) Comments: PATIENT NOT FASTINGPERFORMED BY: [facility]CoMc[facility] ZWL8181 [address] [facility] [id number] Information: [id number] CCU:[id number] LM Ethanol U, Rich Negative % (Normal) Phencyclidine Negative ng/mL (Normal) Opiates Negative ng/mL (Normal) Comments: Opiate test includes Codeine and Morphine only. Cannabinoid Negative ng/mL (Normal) Cocaine (Metab.) Negative ng/mL (Normal) Benzodiazepines Negative ng/mL (Normal) Barbiturate Negative ng/mL (Normal) Amphetamines, Urine Negative ng/mL (Normal) Comments: Amphetamine test includes Amphetamine and Methamphetamine. :37 T4, FREE (THYROXINE) Comments: PATIENT WAS FASTINGPERFORMED BY: LabCoJer[facility] Shore University Medical CenterZsqrtg3808 [facility] [id number] BY: Lab[address] [id number] (96991) T4,Free(Direct) 1.14 ng/dL (Normal) Range: 0.82-1.77 :38 HgA1C , Office (74082) HgA1C , Office 5.3 % (Normal) Range: 4.6 - 7.1 :38 Blood Glucose , Office (81761) Blood Glucose , Office 87 (Normal) 38-Oji-429964:38 HgA1C , Office (38010) HgA1C , Office 5.3 % (Normal) Range: 4.6 - 7.1 73-Yoe-841966:37 RHEUMATOID FACTOR-QUANT Comments: PATIENT WAS FASTINGPERFORMED BY: Diagnostic InnovationsNew Mexico Behavioral Health Institute at Las VegasTekdwn8973 [facility] [id number] BY: [address] [id number] (78631) RA Latex Turbid. 9.9 {IU/mL} (Normal) Range: 0.0-13.9 45-Okc-648079:37 CCP ANTIBODY (26498) Comments: PATIENT WAS FASTINGPERFORMED BY: Diagnostic InnovationsDavid V[place] 1969170 [facility] [id number] BY: [address] [id number] CCP Antibodies IgG/IgA 9 {units} (Normal) Range: 0-19 Comments: Negative <20 Weak positive 20 - 39 Moderate positive 40 - 59 Strong positive >59 37-Moj-252259:37 ALISON (ANTINUCLEAR ANTIBODY) Comments: PATIENT WAS FASTINGPERFORMED BY: [facility] Ixurlf6007 [facility] [id number] BY: [address] [id number] (22636) ALISON Direct Negative (Normal) 23-Lur-082279:37 Creatine Kinase Total Comments: PATIENT WAS FASTINGPERFORMED BY: Diagnostic InnovationsDavid [place] 1969170 [facility] [id number] BY: [address] [id number] (90967) Creatine Kinase,Total,Serum 199 U/L (Normal) Range: 24-204 99-Uaw-780007:37 C-Reactive Protein Comments: PATIENT WAS FASTINGPERFORMED BY: [facility] Lumdzj6181 [facility] [id number] BY: [address] [id number] (11722) C-Reactive Protein, Quant 0.9 mg/L (Normal) Range: 0.0-4.9 :37 Methymalonic Acid, Serum Comments: PATIENT WAS FASTINGPERFORMED BY: LabCo Wpciuy0522 [address] Roadblin [place] [id number] BY: [address] [id number] (32825) Methylmalonic Acid, Serum 110 nmol/L (Normal) Range: 0-378 Comments: Please note reference interval change :37 Vitamin B-12 Comments: PATIENT WAS FASTINGPERFORMED BY: [facility] Drsjfi3750 Perry RoadDublin [place] [id number] BY: [address] [id number] (cyanocobalamin) (27026) Vitamin B12 293 pg/mL (Normal) Range: 211-946 :37 CALCIFIDIOL (13036) VIT D Comments: PATIENT WAS FASTINGPERFORMED BY: [facility] Qvvuxw3284 Perry RoadDublin [place] [id number] BY: [address] [id number] 25 Vitamin D, 25-Hydroxy 12.6 ng/mL (Abnormal) Range: 30.0-100.0 Comments: Vitamin D deficiency has been defined by the [place] of[place] and an Endocrine Society practice guideline as alevel of serum 25-OH vitamin D less than 20 ng/mL (1,2).The Endocrine Society went on to further define vitamin Dinsufficiency as a level between 21 and 29 ng/mL (2).1. IOM ([place] of [employer]). 2010. Dietary reference intakes for calcium and D. [place]: The National Academies Press.2. Clifton MF, Robbi NC, Ladarius GONZALES, et al. Evaluation, treatment, and prevention of vitamin D deficiency: an Endocrine Society clinical practice guideline. JCEM. 2010; 96(7):1911-30. :37 CBC with manual diff Comments: PATIENT WAS FASTINGPERFORMED BY: CB [facility] Xrmakl6534 Perry RoadDublin [place] [id number] BY: [facility] [id number] Inf ormation: [id number] (26517) Immature Grans (Abs) 0.0 {x10E3/uL} (Normal) Range: [...] 4.14-5.80 WBC 6.0 {x10E3/uL} (Normal) Range: 3.4-10.8 52-Yip-762233:37 HEPATIC FUNCTION PANEL Comments: PATIENT WAS FASTINGPERFORMED BY: LabCoJersey Shore University Medical CenterUadmvi0929 [facility] [id number] BY: [facility] [id number] (58942) Bilirubin, Direct 0.55 mg/dL (Abnormal) Range: 0.00-0.40 45-Ygj-139778:37 TSH (THYROID STIMULATING Comments: PATIENT WAS FASTINGPERFORMED BY: [facility] [id number] BY: [address] [id number] HORMONE) (45352) TSH 0.551 {uIU/mL} (Normal) Range: 0.450-4.500 71-Ypj-383334:37 Lipid Panel (94894) Comments: PATIENT WAS FASTINGPERFORMED BY: [facility] [id number] BY: [address] [id number] LDL/HDL Ratio 0.8 {ratio_units} (Normal) Range: 0.0-3.6 LDL Cholesterol Calc 99 mg/dL (Normal) Range: 0-99 VLDL Cholesterol Micah 15 mg/dL (Normal) Range: 5-40 HDL Cholesterol 127 mg/dL (Normal) Comments: Results confirmed ondilution.According to ATP-III Guidelines, HDL-C >59 mg/dL is considered anegative risk factor for CHD. Triglycerides 77 mg/dL (Normal) Range: 0-149 Cholesterol, Total 241 mg/dL (Abnormal) Range: 100-199 36-Ctf-410873:37 Metabolic Panel, Comments: PATIENT WAS FASTINGPERFORMED BY: [facility] [id number] BY: Feastie[address] [id number] Comprehensive (80102) ALT (SGPT) 61 [iU]/L (Abnormal) Range: 0-44 [...] Glucose, Serum 90 mg/dL (Normal) Range: 65-99 88-Ejy-581373:33 Ethanol, Blood Comments: PATIENT NOT FASTINGPERFORMED BY: [employer] Dpssgt[address] [place] [address] [id number] BY: [place]ieP[place] [id number] Ethanol 0.085 % (Normal) Comments: Verified by repeat analysis 40-Bdy-069636:33 Magnesium (40088) Comments: PATIENT NOT FASTINGPERFORMED BY: [employer] [id number] BY: [address] [id number] Magnesium, Serum 1.6 mg/dL (Normal) Range: 1.6-2.6 15-Rru-699951:33 Methymalonic Acid, Serum Comments: PATIENT NOT FASTINGPERFORMED BY: TapMetricsJersey Shore University Medical CenterTrwfcu7587[address] [place] [address] [id number] BY: [address] [id number] (27264) Methylmalonic Acid, Serum 78 nmol/L (Normal) Range: 73-376 Comments: The reference range for methylmalonic acid has been set at +3sd abovethe mean for healthy blood bank donors. In the clinical assessment ofpatients with megaloblastic anemias a cutoff of +3sd provides gr eaterspecificity in the diagnosis of the vitamin deficiency states,despite the sacrifice of some sensitivity. 95-Iqz-977967:33 Vitamin B-12 Comments: PATIENT NOT FASTINGPERFORMED BY: [employer] Oqsqon4216 [facility] [id number] BY: Feastie[address] [id number] (cyanocobalamin) (90825) Vitamin B12 449 pg/mL (Normal) Range: 211-946 90-Jpk-099322:33 TSH (74613) Comments: PATIENT NOT FASTINGPERFORMED BY: Synoste Oy LabSCRM Trjucj2945 [facility] [id number] BY: [facility] [id number] TSH 0.654 {uIU/mL} (Normal) Range: 0.450-4.500 08-Laa-543940:33 METABOLIC PANEL, Comments: PATIENT NOT FASTINGPERFORMED BY: TapMetricsDavid [place] 1969170 [facility] [id number] BY: Feastie[address] [id number] Inf ormation: [id number] COMPREHENSIVE (38089) ALT (SGPT) 88 [iU]/L (Abnormal) Range: 0-44 [...] Range: 65-99 :49 Blood Glucose , Office (92791) Blood Glucose , Office 90 (Normal) :49 HgA1C , Office (51966) HgA1C , Office 5.3 % (Normal) Range: 4.6 - 7.1 :07 MAGNESIUM (97167) Comments: PATIENT NOT FASTINGPERFORMED BY: Picklivelin6370 [facility] [id number] Magnesium, Serum 1.3 mg/dL (Abnormal) Range: 1.6-2.6 79-Tde-827947:07 PSA (PROSTATE SPECIFIC Comments: PATIENT NOT FASTINGPERFORMED BY: [employer] Pvmuef2741 [facility] [id number] ANTIGEN) (28435) Prostate Specific Ag, 0.8 ng/mL (Normal) Range: 0.0-4.0 Serum Comments: Mónica ECLIA methodology. .According to the [place] [employer], Serum PSA shoulddecrease and remain at undetectable levels after radicalprostatectomy. The AUA defines biochemical recurrence as an initialPSA value 0.2 ng/mL or greater followed by a subsequent confirmatoryPSA value 0.2 ng/mL or greater.Values obtained with d ifferent assay methods or kits cannot be usedinterchangeably. Results cannot be interpreted as absolute evidenceof the presence or absence of malignant disease. 59-Mti-074635:07 Metabolic Panel, Comments: PATIENT NOT FASTINGPERFORMED BY: SATHISH [facility] Eohvbp3610 [place] [id number] Information: ADD [id number] AND DRAW FEE 99 1160 Comprehensive (70800) ALT (SGPT) 74 [iU]/L (Abnormal) Range: 0-44 [...] Glucose, Serum 98 mg/dL (Normal) Range: 65-99 48-Ien-90331:00 Urinalysis, Office (79825) UA - BILIRUBIN Negative (Normal) UA - BLOOD Non Hemolyzed Trace (Normal) UA - GLUCOSE Negative (Normal) UA - KETONES Negative mg/dL (Normal) UA - LEUKOCYTE ESTERASE Negative (Normal) UA - NITRITE Negative (Normal) UA - PH 7.0 (Normal) UA - PROTEIN Negative mg/dL (Normal) UA - SPECIFIC GRAVITY 1.015 (Normal) URINE UROBILINGN RICH TIMED Normal mg/dL (Normal) 58-Wgp-771268:32 Potassium Serum (33515) Comments: PATIENT NOT FASTINGPERFORMED BY: FeastieJason [place] 9493970 [facility] [id number] Information: [id number] Potassium, Serum 4.0 mmol/L (Normal) Range: 3.5-5.2 45-Qaf-952025:32 Magnesium (80794) Comments: PATIENT NOT FASTINGPERFORMED BY: Feastie[place] 9493970 [facility] [id number] Magnesium, Serum 1.7 mg/dL (Normal) Range: 1.6-2.6 Magnesium, Serum 1.4 mg/dL Comments: PATIENT WAS FASTINGPERFORMED BY: Fe[place]ie[place] 9493970 [facility] [id number] :32 (Abnormal) Range: 1.6-2.6 Written Authorization WAR (Normal) Comments: PATIENT WAS FASTINGPERFORMED BY: [place]ie[place] 9493970 [facility] [id number] :32 Comments: Written Authorization Received.Authorization received from JEWELL HADLEY [id number] by Kenisha Lozano :32 Metabolic Panel, Basic Comments: PATIENT WAS FASTINGPERFORMED BY: LabJason Ville 9493970 [facility] [id number] BY: [place] 401027 [facility] [id number] (51851) Calcium, Serum 9.1 mg/dL (Normal) Range: 8.6-10.2 [...] Glucose, Serum 84 mg/dL (Normal) Range: 65-99 :32 HEPATIC FUNCTION PANEL Comments: PATIENT WAS FASTINGPERFORMED BY: OLSET [facility] [id number] BY: [facility] [id number] (21718) ALT (SGPT) 72 [iU]/L (Abnormal) Range: 0-55 AST (SGOT) 88 [iU]/L (Abnormal) Range: 0-40 Alkaline Phosphatase, S 74 [iU]/L (Normal) Range: 25-160 Bilirubin, Direct 0.57 mg/dL (Abnormal) Range: 0.00-0.40 Bilirubin, Total 1.3 mg/dL (Abnormal) Range: 0.0-1.2 Albumin, Serum 4.5 g/dL (Normal) Range: 3.6-4.8 Protein, Total, Serum 7.1 g/dL (Normal) Range: 6.0-8.5 :32 CALCIFIDIOL (02186) VIT D Comments: PATIENT WAS FASTINGPERFORMED BY: Picklivelin6370 [facility] [id number] BY: [facility] [id number] 25 Vitamin D, 25-Hydroxy 39.6 ng/mL (Normal) Range: 30.0-100.0 Comments: Vitamin D deficiency has been defined by the [place] of[place] and an Endocrine Society practice guideline as alevel of serum 25-OH vitamin D less than 20 ng/mL (1,2).The Endocrine Society went on to further define vitamin Dinsufficiency as a level between 21 and 29 ng/mL (2).1. IOM ([place] [employer]). 2010. Dietary reference intakes for calcium and D. [place]: The National Academies Press.2. Clifton MF, Robbi MADRID, Ladarius GONZALES, et al. Evaluation, treatment, and prevention of vitamin D deficiency: an Endocrine Society clinical practice guideline. JCEM. 2010; 96(7):1911-30. :32 Vitamin B-12 (cyanocobalamin) Comments: PATIENT WAS FASTINGPERFORMED BY: [facility] Hxqcej7573 [facility] [id number] BY: [address] [id number] (71784) Vitamin B12 557 pg/mL (Normal) Range: 211-946 :32 TSH (51133) Comments: PATIENT WAS FASTINGPERFORMED BY: [facility] Yggkmz2850 [facility] [id number] BY: [address] [id number] TSH 0.507 {uIU/mL} (Normal) Range: 0.450-4.500 :32 T4, FREE (THYROXINE) Comments: PATIENT WAS FASTINGPERFORMED BY: LabSCRM Pqlkqc5807 [facility] [id number] BY: [address] [id number] (46709) T4,Free(Direct) 1.07 ng/dL (Normal) Range: 0.82-1.77 :32 T3, FREE (TRIDOTHYRONINE) Comments: PATIENT WAS FASTINGPERFORMED BY: [facility] Lsgegk7147 [facility] [id number] BY: [address] [id number] (93175) Triiodothyronine,Free,Serum 3.4 pg/mL (Normal) Range: 2.0-4.4 :32 Ethanol, Blood Comments: PATIENT WAS FASTINGPERFORMED BY: [facility] Sdjfty4489 [facility] [id number] BY: ANNA [facility] Jcbwwcohdj1528 [facility] [id number] Ethanol 0.025 % (Normal) Comments: Verified by repeat analysis 04-Apr-20128:30 THYROID IMAGE W/UPTAKE [facility] Radiology Report See Note (Normal) Comments: [...] EDTElectronically Signed RB/RB Professional Interpretation Provided By: [facility], , To consult with a radiologist regarding this report, please call our [id number] line @ Dictated on 04/04/12951 by Jeffrey Fatima DOTranscribed on 04/05/122125 by ITS IMPORTSign by Jeffrey Acosta DO on 04/05/122126 Sign by: Jeffrey Fatima DO 41-Fgv-603116:50 TSH (46168) Comments: PATIENT NOT FASTINGPERFORMED BY: LabCoJersey Shore University Medical CenterOvqcdw9683 [facility] [id number] TSH 0.337 {uIU/mL} (Abnormal) Range: 0.450-4.500 :50 T4, FREE (THYROXINE) (40537) Comments: PATIENT NOT FASTINGPERFORMED BY: [facility] Gbkjtn3851 [facility] Hospitalbl[facility] [place] [id number] T4,Free(Direct) 1.14 ng/dL (Normal) Range: 0.82-1.77 :50 T3, FREE (TRIDOTHYRONINE) (37032) Comments: PATIENT NOT FASTINGPERFORMED BY: [facility]6370 [facility] [id number] Triiodothyronine,Free,Serum 3.2 pg/mL (Normal) Range: 2.0-4.4 :50 CALCIFIDIOL (58149) VIT D 25 Comments: PATIENT NOT FASTINGPERFORMED BY: [facility]6370 [facility] [id number] Vitamin D, 25-Hydroxy 57.3 ng/mL (Normal) Range: 30.0-100.0 Comments: Vitamin D deficiency has been defined by the [place] of[place] and an Endocrine Society practice guideline as alevel of serum 25-OH vitamin D less than 20 ng/mL (1,2).The Endocrine Society went on to further define vitamin Dinsufficiency as a level between 21 and 29 ng/mL (2).1. IOM ([place] of [employer]). 2010. Dietary reference intakes for calcium and D. [place]u [place]: The National Academies Press.2. Clifton MF, Robbi MADRID, Ladarius GONZALES, et al. Evaluation, treatment, and prevention of vitamin D deficiency: an Endocrine Society clinical practice guideline. JCEM. 2010; 96(7):1911-30. :50 HEPATIC FUNCTION PANEL Comments: PATIENT NOT FASTINGPERFORMED BY: [facility] Jyhzbf2316 [facility] [id number] Information: [id number] (09156) ALT (SGPT) 76 [iU]/L (Abnormal) Range: 0-55 Alkaline Phosphatase, S 77 [iU]/L (Normal) Range: 25-160 AST (SGOT) 88 [iU]/L (Abnormal) Range: 0-40 Bilirubin, Direct 0.52 mg/dL Range: 0.00-0.40 (Abnormal) Bilirubin, Total 1.3 mg/dL (Abnormal) Range: 0.0-1.2 Albumin, Serum 4.7 g/dL (Normal) Range: 3.6-4.8 Protein, Total, Serum 7.2 g/dL (Normal) Range: 6.0-8.5 11-Feb-2012 Vitamin D, 25-Hydroxy 5.2 ng/mL (Abnormal) Comments: PERFORMED BY: [facility] [id number] 12:13 Range: 30.0-100.0 Comments: Vitamin D deficiency has been defined by the [place] of[place] and an Endocrine Society practice guideline as alevel of serum 25-OH vitamin D less than 20 ng/mL (1,2).The Endocrine Society went on to further define vitamin Dinsufficiency as a level between 21 and 29 ng/mL (2).1. IOM ([place] of Medicine). 2010. Dietary reference intakes for [...] Mitochondrial (M2) <20.0 {Units} Comments: PERFORMED BY: Element ID6370 [facility] [id number] 12:13 Antibody (Normal) Range: 0.0-20.0 Comments: Negative 0.0 - 20.0 Equivocal 20.1 - 24.9 Positive >24.9 . Mitochondrial (M2) Antibodies are found in 90-96% of patients with primary biliary cirrhosis. 11-Feb-2012 Actin (Smooth Muscle) 8 {Units} (Normal) Comments: PERFORMED BY: [facility] [id number] 12:13 Antibody Range: 0-19 Comments: Negative 0 - 19 Weak positive 20 - 30 Moderate to strong positive >30 . Actin Antibodies are found in 52-85% of patients with autoimmune hepatitis or chronic active hepatitis and in 22% of patients with primary biliary cirrhosis. 11-Feb-2012 Ferritin, Serum 364 ng/mL (Normal) Comments: PERFORMED BY: Diagnostic InnovationsJersey Shore University Medical CenterGtstqn6031 [facility] [id number] 12:13 Range: 30-400 85-Jhr-276377:13 Antinuclear Antibodies Direct Comments: PERFORMED BY: [employer] Yppnku9349 [facility] [id number] ALISON Direct Negative (Normal) 50-Kni-449016:13 Hepatic Function Panel (7) Comments: PERFORMED BY: [employer] Srnbmf0106 [facility] [id number] ALT (SGPT) 62 [iU]/L (Abnormal) Range: 0-55 Alkaline Phosphatase, S 82 [iU]/L (Normal) Range: 25-160 AST (SGOT) 106 [iU]/L (Abnormal) Range: 0-40 Bilirubin, Direct 0.44 mg/dL (Abnormal) Range: 0.00-0.40 Bilirubin, Total 0.9 mg/dL (Normal) Range: 0.0-1.2 Albumin, Serum 4.5 g/dL (Normal) Range: 3.6-4.8 Protein, Total, Serum 7.3 g/dL (Normal) Range: 6.0-8.5 79-Ekj-006240:13 Thyroxine (T4) Free, Direct, Comments: PERFORMED BY: [facility] InnovationsJer[facility] Medical CenterRgvypd9672 [facility] [id number] S T4,Free(Direct) 1.10 ng/dL Range: 0.82-1.77 (Normal) 11-Feb-2012 Triiodothyronine,Free,Seru 3.4 pg/mL (Normal) Comments: [facility]FORMED BY: [facility] [id number] 12:13 m Range: 2.0-4.4 11-Feb-2012 TSH 0.371 {uIU/mL} Comments: PERFORMED BY: [facility]6370 [facility] [id number] 12:13 (Abnormal) Range: 0.450-4.500 42-Hxp-979139:04 Thyroxine (T4) Free, Comments: PATIENT WAS FASTINGPERFORMED BY: [facility]6370 [facility] [id number] Information: [id number] Direct, S T4,Free(Direct) 1.25 ng/dL Range: 0.82-1.77 (Normal) 07-Dec-2011 Triiodothyronine,Free,Seru 3.1 pg/mL (Normal) Comments: PATIENT WAS FASTINGPERFORMED BY: [facility]6370 [facility] [id number] 13:04 m Range: 2.0-4.4 07-Dec-2011 Written Authorization WAR (Normal) Comments: PATIENT WAS FASTINGPERFORMED BY: [facility]6370 [facility] [id number] 13:04 Comments: Written Authorization Received.Authorization received from JEWELL HADLEY [id number] by Margaret Zuniga 79-Bwy-154079:04 TSH (84779) Comments: PATIENT WAS FASTINGPERFORMED BY: [facility]6370 [facility] [id number] TSH 0.290 {uIU/mL} (Abnormal) Range: 0.450-4.500 49-Rai-812458:04 CALCIFIDIOL (15870) VIT D 25 Comments: PATIENT WAS FASTINGPERFORMED BY: [facility]6370 [facility] [id number] Vitamin D, 25-Hydroxy 7.2 ng/mL (Abnormal) Range: 30.0-100.0 Comments: Vitamin D deficiency has been defined by the [place] of[place] and an Endocrine Society practice guideline as alevel of serum 25-OH vitamin D less than 20 ng/mL (1,2).The Endocrine Society went on to further define vitamin Dinsufficiency as a level between 21 and 29 ng/mL (2).1. IOM ([place] of [employer]). 2011. Dietary reference intakes for calcium and D. [place]: The National Academies Press.2. Clifton MF, Robbi MADRID, Ladarius GONZALES, et al. Evaluation, treatment, and prevention of vitamin D deficiency: an Endocrine Society clinical practice guideline. JCEM. 2010; 96(7):1911-30. 47-Iws-704188:04 Vitamin B-12 (cyanocobalamin) Comments: PATIENT WAS FASTINGPERFORMED BY: [facility] Qeoktz6462 [facility] [id number] (72135) Vitamin B12 920 pg/mL (Normal) Range: 211-946 94-Fby-630416:04 METABOLIC PANEL, COMPREHENSIVE Comments: PATIENT WAS FASTINGPERFORMED BY: [facility] Avzhcn1344 [facility] [id number] (65144) ALT (SGPT) 101 [iU]/L (Abnormal) Range: 0-55 [...] Glucose, Serum 85 mg/dL (Normal) Range: 65-99 44-Bdx-740082:04 LIPID PANEL (74314) Comments: PATIENT WAS FASTINGPERFORMED BY: [employer]70 [facility] [id number] LDL Cholesterol Calc 79 mg/dL (Normal) Range: 0-99 LDL/HDL Ratio 0.5 {ratio_units} (Normal) Range: 0.0-3.6 VLDL Cholesterol Micah 11 mg/dL (Normal) Range: 5-40 HDL Cholesterol 156 mg/dL (Normal) Comments: Results confirmed ondilution.According to ATP-III Guidelines, HDL-C >59 mg/dL is considered anegative risk factor for CHD. Triglycerides 57 mg/dL (Normal) Range: 0-149 Cholesterol, Total 246 mg/dL (Abnormal) Range: 100-199 30-Lzc-634584:04 CBC WITH MANUAL DIFF Comments: PATIENT WAS FASTINGPERFORMED BY: [employer] Rtgofd1690 [facility] [id number] Information: [id number] (79744) Immature Grans (Abs) 0.0 {x10E3/uL} (Normal) Range: [...] 4.10-5.60 WBC 5.7 {x10E3/uL} (Normal) Range: 4.0-10.5 17-Uub-91057:56 BRAIN/HEAD W/WO CONTRAST Radiology Report See Note [...] scan of the brain. Dictated on 05/27/11 7818 by Yasmeen ALBARADO,GabrieleTranscribed on 05/27/11 1332 by ITS IMPORTSign by Maxi Arana MD on 1333 Sign by: Maxi Arana MD 98-Gan-37749:00 LIVER Radiology Report See Note (Normal) Comments: [...] size of the right kidney. The right vrchshrnotmlva65.4 cm. Normal renal cortex. The right cortex measures 1.7 cm. Thereisno de monstrated renal mass or cyst. There are no demonstrated renalcalculi. There is no hydronephrosis. There is no ascites. IMPRESSION:Normal abdominal ultrasound examination. Dictated on 04/21/11 082 9 by Va Arana MDranscribed on 04/21/11 1107 by ITS IMPORTSign by Maxi Arana MD on 04/21/11 1108 Sign by: Maxi Arana MD 91-Otc-92784:16 HEPATIC FUNCTION PANEL Comments: PATIENT NOT FASTINGPERFORMED BY: [facility]CoJer[facility] Medical CenterZohjxw2045 [facility] [id number] Information: [id number] (75116) Alkaline Phosphatase, S 69 [iU]/L (Normal) Range: 25-160 ALT (SGPT) 142 [iU]/L (Abnormal) Range: 0-55 AST (SGOT) 171 [iU]/L (Abnormal) Range: 0-40 Bilirubin, Direct 0.43 mg/dL (Abnormal) Range: 0.00-0.40 Bilirubin, Total 0.8 mg/dL (Normal) Range: 0.0-1.2 Albumin, Serum 4.7 g/dL (Normal) Range: 3.6-4.8 Protein, Total, Serum 7.2 g/dL (Normal) Range: 6.0-8.5 :16 HEPATITIS PANEL (22733) Comments: PATIENT NOT FASTINGPERFORMED BY: [facility] [id number] Hep C Virus Ab <0.1 {s/co_ratio} (Normal) [...] (Normal) Hep A Ab, IgM Negative (Normal) 62-Kqo-260140:05 CBC With Differential/Platelet Comments: PATIENT WAS FASTINGPERFORMED BY: [facility] [id number] BY: [address] [id number] Immature Grans (Abs) 0.0 {x10E3/uL} (Normal) Range: [...] 4.10-5.60 WBC 7.7 {x10E3/uL} (Normal) Range: 4.0-10.5 20-Rra-394600:05 Comp. Metabolic Panel Comments: PATIENT WAS FASTINGPERFORMED BY: CB [facility] [address] [id number] BY: BN [facility] [address] [id number] (14) Alkaline Phosphatase, S 74 [iU]/L (Normal) [...] % (Normal) Comments: PATIENT WAS FASTINGPERFORMED BY: [facility] [id number] BY: [facility] [id number] 3:05 Range: 4.8-5.6 Comments: Increased risk for diabetes: 5.7 - 6.4 Diabetes: >6.4 Glycemic control for adults with diabetes: <7.0 30-Apv-296435:05 Lipid Panel With LDL/HDL Comments: PATIENT WAS FASTINGPERFORMED BY: [employer]70 [facility] [id number] BY: [facility] [id number] Ratio LDL Cholesterol Calc 89 mg/dL (Normal) Range: 0-99 LDL/HDL Ratio 0.7 {ratio_units} (Normal) Range: 0.0-3.6 VLDL Cholesterol Micah 18 mg/dL (Normal) Range: 5-40 Cholesterol, Total 241 mg/dL (Abnormal) Range: 100-199 HDL Cholesterol 134 mg/dL (Normal) Comments: Results confirmed ondilution.According to ATP-III Guidelines, HDL-C >59 mg/dL is considered anegative risk factor for CHD. Triglycerides 92 mg/dL (Normal) Range: 0-149 :05 Panel [id number] Comments: PATIENT WAS FASTINGPERFORMED BY: [employer] [facility] [id number] BY: [address] [id number] HIV 1/O/2 Abs, Non Reactive Qual (Normal) HIV 1/O/2 <1.00 (Normal) Comments: Index Value: Specimen reactivity relative to the negative cutoff. Abs-Index Value : TSH 0.699 {uIU/mL} Comments: PATIENT WAS FASTINGPERFORMED BY: [employer] [facility] [id number] BY: [address] [id number] (Normal) Range: 0.450-4.500 :05 Vitamin B1 (Thiamine), Comments: PATIENT WAS FASTINGPERFORMED BY: [employer] Kkfpxv4792 [facility] [id number] BY: [address] [id number] Blood Vit. B1, Whole Blood 150.6 nmol/L Range: 66.5-200.0 (Normal) Vitamin B12 >1999 pg/mL Comments: PATIENT WAS FASTINGPERFORMED BY: [employer] Gpgxvg2444 [facility] [id number] BY: [address] [id number] :05 (Abnormal) Range: 211-946 59-Wni-67919:10 CBCD,SMEAR DIFF BAND 2 % (Normal) Range: [...] 11.6-14.6 WBC 5.0 K/mm3 (Normal) Range: 4.4-11.0 08-Gdr-80826:10 COMP METABOLIC ALK P 72 U/L (Normal) [...] CHOL 200 mg/dL (Normal) Comments: <200 mg/dL Xijdlaqka414-723 mg/dL Borderline>240 mg/dL High Risk HDL 87 [...] Range: 0.358-3.74 0 (Normal) :1 VIT D,25 95696 20.5 ng/mL (Abnormal) Range: 32.0-100.0 0 Comments: Recent studies consider the lower limit of 32.0 ng/mL to nati threshold for optimal health.Edwin ESPINOZA. J Nutr. 2004;135(2):317-22.Performed at: [place] [address] Director: Adrienne Gil MD, Phone: [phone] :[phone] VITAMIN B12 1239 pg/mL (Normal) Range: 254-1320 0 Comments: There is a low frequency possibility that high titers ofintrinsic blocking antibodies may not be completelyinactivated during the reaction pretreatment stepof this testing method. If test results are in conflictwith the clinical diagnosis, patient should be testedfor the presence of intrinsic factor blocking antibodies. 40-Bck-360817:24 Urinalysis, Office (51772) UA - LEUKOCYTE Negative (Normal) ESTERASE UA [...] {units} (Normal) Comments: PATIENT WAS FASTINGPERFORMED BY: [address] [id number] Range: 0-19 Comments: Negative <20 Weak positive 20 - 39 Moderate positive 40 - 59 Strong positive >59 : Comment: SPRCS (Normal) Comments: PATIENT WAS FASTINGPERFORMED BY: [address] [id number] 29 Comments: Effective August 25, 2009 order code 988457 CCP IgGAntibodies has been replaced due to an updated reagentversion 3.1. For this reason [facility] [place] has provided youwith a new order code 422451 CCP Antibodies IgG/IgA. :29 PSA (PROSTATE SPECIFIC Comments: PATIENT WAS FASTINGPERFORMED BY: [address] [id number] ANTIGEN) (V76.44) Prostate Specific Ag, 1.0 ng/mL (Normal) Range: 0.0-4.0 Serum Comments: Mónica ECLIA methodology. .According to the [place] [employer], Serum PSA shoulddecrease and remain at undetectable levels after radicalprostatectomy. The AUA defines biochemical recurrence as an initialPSA value 0.2 ng/mL or greater followed by a subsequent confirmatoryPSA value 0.2 ng/mL or greater.Values obtained with d ifferent assay methods or kits cannot be usedinterchangeably. Results cannot be interpreted as absolute evidenceof the presence or absence of malignant disease. :29 LIPID PANEL (15111) Comments: PATIENT WAS FASTINGPERFORMED BY: [address] [id number] Cholesterol, Total 240 mg/dL (Abnormal) Range: 100-199 HDL Cholesterol 85 mg/dL (Normal) Comments: According to ATP-III Guidelines, HDL-C >59 mg/dL is considered anegative risk factor for CHD. LDL Cholesterol Calc 142 mg/dL (Abnormal) Range: 0-99 LDL/HDL Ratio 1.7 {ratio_units} (Normal) Range: 0.0-3.6 Triglycerides 63 mg/dL (Normal) Range: 0-149 VLDL Cholesterol Micah 13 mg/dL (Normal) Range: 5-40 :29 C-REACTIVE PROTEIN (40600) Comments: PATIENT WAS FASTINGPERFORMED BY: [facility] [id number] C-Reactive Protein, Quant 0.8 mg/L (Normal) Range: 0.0-4.9 :29 SED RATE ERYTHROCYTE (69221) Comments: PATIENT WAS FASTINGPERFORMED BY: [facility] [id number] Sedimentation Rate-Westergren 2 mm/h (Normal) Range: 0-20 :29 ALISON (ANTINUCLEAR ANTIBODY) Comments: PATIENT WAS FASTINGPERFORMED BY: [facility] [id number] (81241) ALISON Direct Negative (Normal) :29 CBC WITH MANUAL DIFF (68511) Comments: PATIENT WAS FASTINGClinical Information: [id number] PERFORMED BY: [facility] [id number] Baso (Absolute) 0.1 {x10E3/uL} (Normal) Range: 0.0-0.2 [...] PANEL, COMPREHENSIVE Comments: PATIENT WAS FASTINGPERFORMED BY: [facility] [id number] (49752) A/G Ratio 1.5 (Normal) Range: 1.1-2.5 Albumin, [...] mmol/L (Normal) Range: 135-145 :29 RHEUMATOID FACTOR-QUANT (52622) Comments: PATIENT WAS FASTINGPERFORMED BY: [facility] [employer] [address] [id number] RA Latex Turbid. 8.4 {IU/mL} (Normal) Range: 0.0-13.9 :29 TSH (76863) Comments: PATIENT WAS FASTINGPERFORMED BY: [facility] [address] [id number] TSH 0.661 {uIU/mL} (Normal) Range: 0.450-4.500 67-Oua-795505:30 RIBS,UNI,MIN 3V,W/PA CHEST(MT) Radiology Report See Note (Normal) Comments: Exam Number: [id number] FRONTAL CHEST AND LEFT RIBS CLINICAL HISTORY [...] (PROSTATE SPECIFIC Comments: PATIENT NOT FASTINGPERFORMED BY: [facility] [id number] ANTIGEN) (V76.44) Prostate Specific Ag, Serum 1.6 ng/mL (Normal) Range: 0.0-4.0 Comments: AnchantoIA methodology. .According to the [place] [employer], PSA should beundetectable after radical prostatectomy. A PSA of less than0.5 ng/mL (or undetectable) is not likely to be associated withdisease recurrence within five years of treatment.Values obtained with different assay methods or kits cannot be usedinterchang eably. Results cannot be interpreted as absolute evidenceof the presence or absence of malignant disease. :47 TSH (24124) Comments: PATIENT NOT FASTINGPERFORMED BY: [employer] [address] [id number] TSH 0.463 {uIU/mL} (Normal) Range: 0.450-4.500 :47 CBC (Auto) (93093) Comments: PATIENT NOT FASTINGPERFORMED BY: [facility] [id number] Hematocrit 47.6 % (Normal) Range: 36.0-50.0 Hemoglobin [...] PATIENT NOT FASTINGClinical Information: ADD DRAW FEE 301328 ADD J 57696 PERFORMED BY: [employer] [address] [id number] (17839) A/G Ratio 1.4 (Normal) Range: 1.1-2.5 Albumin, [...] mmol/L (Normal) Range: 135-145 :47 Lipid Panel (12466) Comments: PATIENT NOT FASTINGPERFORMED BY: [employer] [facility] [id number] Cholesterol, Total 199 mg/dL (Normal) Range: 100-199 [...] (Normal) Range: 5-40 :47 Methylmalonic acid, serum 55387 Comments: PATIENT NOT FASTINGPERFORMED BY: [employer] [address] [id number] Methylmalonic Acid, Serum 225 nmol/L (Normal) Range: [...] B-12 (cyanocobalamin) Comments: PATIENT NOT FASTINGPERFORMED BY: [employer] [address] [id number] (10239) Vitamin B12 256 pg/mL (Normal) Range: 211-911 87-Cjs-868052:30 Metabolic Panel, Basic Comments: PATIENT NOT FASTINGClinical Information: ADD DRAW FEE 170487 ADD J 41741 PERFORMED BY: Diagnostic InnovationsNew Mexico Behavioral Health Institute at Las VegasVgxozd3640 [facility] [id number] (85575) BUN 13 mg/dL (Normal) Range: 5-26 BUN/Creatinine [...] on 'Glom Filt Rate, Est' and 'If -[place]' will be changing to >59 mL/min/1.73. Glucose, Serum 86 mg/dL (Normal) Range: 65-99 If -V[place]an >59 mL/min/1.73 Range: 60-137 (Normal) Comments: Note: Persistent reduction for 3 months or more in an eGFR<60 mL/min/1.73 m2 defines CKD. Patients with eGFR values>/=60 mL/min/1.73 m2 may also have CKD if evidence of persistentproteinuria is present. Additional information may be found [email or web address]. Potassium, Serum 4.2 mmol/L (Normal) Range: 3.5-5.2 Sodium, Serum 139 mmol/L (Normal) Range: 135-145 :01 BMP BUN 13 mg/dL (Normal) Range: 7-18 BUN/CRE 16.3 {RATIO} (Normal) Range: 10-20 CA 8.6 mg/dL (Normal) Range: 8.5-10.1 CL 101 mmol/L (Normal) Range: 98-107 CO2 26.7 mmol/L (Normal) Range: 21.0-32.0 CREAT,SERUM 0.8 mg/dL (Normal) Range: 0.8-1.3 GAP 8 (Normal) Range: 5-15 GLU 101 mg/dL (Normal) Range: 70-110 K 3.6 mmol/L (Normal) Range: 3.5-5.1 NA 136 mmol/L (Normal) Range: 136-145 96-Isp-86686:01 CBCD BASO% 0.5 % (Normal) Range: 0-1 [...] Report See Note (Normal) Comments: Exam Number: [id number] PA AND LATERAL CHEST HISTORY Being done [...] (PROSTATE SPECIFIC Comments: PATIENT WAS FASTINGPERFORMED BY: [employer] Emwndp6783 [facility] [id number] ANTIGEN) Prostate-Specific Ag, Serum 0.5 ng/mL (Normal) Range: 0.0-4.0 Comments: Cathie (formerly [employer] [facility] methodology :28 Vitamin B-12 (cyanocobalamin) Comments: PATIENT WAS FASTINGPERFORMED BY: [employer] Swwhts7311 [facility] CenterHeliaeAt[facility] [id number] (56226) Vitamin B12 283 pg/mL (Normal) Range: 211-911 47-Qjs-57122:28 C-REACTIVE PROTEIN (55817) Comments: PATIENT WAS FASTINGPERFORMED BY: [employer] Zngyft9637 [facility] [id number] C-Reactive Protein, Quant 0.6 mg/L (Normal) Range: 0.0-4.9 :28 SED RATE ERYTHROCYTE (17684) Comments: PATIENT WAS FASTINGPERFORMED BY: [place] 5452470 [facility] [id number] Sedimentation Rate-Westergren 2 mm/h (Normal) Range: 0-20 :28 RHEUMATOID FACTOR-QUANT (50794) Comments: PATIENT WAS FASTINGPERFORMED BY: [address] [id number] RA Latex Turbid. 5.2 {IU/mL} (Normal) Range: 0.0-13.9 :28 TSH (09920) Comments: PATIENT WAS FASTINGPERFORMED BY: [address] [id number] TSH 0.436 {uIU/mL} (Normal) Range: 0.350-5.500 :28 ALISON (ANTINUCLEAR ANTIBODY) Comments: PATIENT WAS FASTINGPERFORMED BY: [address] [id number] (04280) Antinuclear Antibodies Direct 23 AU/mL (Normal) Range: 0-99 Comments: Negative <100 Equivocal 100 - 120 Positive >120 : CBC WITH MANUAL DIFF (43432) Comments: PATIENT WAS FASTINGClinical Information: ADD DRAW FEE 315273 ADD J 31343 PERFORMED BY: [address] [id number] Baso (Absolute) 0.0 {x10E3/uL} (Normal) Range: 0.0-0.2 [...] 11.7-15.0 WBC 5.8 {x10E3/uL} (Normal) Range: 4.0-10.5 90-Ipw-41083:28 METABOLIC PANEL, COMPREHENSIVE Comments: PATIENT WAS FASTINGPERFORMED BY: LabCoJer[facility] University Medical CenterRkjbwr9427 [facility] [id number] (46077) A/G Ratio 1.6 (Normal) Range: 1.1-2.5 Albumin, [...] Report See Note (Normal) Comments: Exam Number: [id number] 2 VIEWS OF CHEST PA and lateral views of the [facility] There is mild cardiomegaly. There is tortuosityof the aorta. There is n o acute infiltrate, area of consolidation,pleural effusion or vascular congestion identified. Bony structuresare grossly intact. IMPRESSIONNo acute pulmonary abnormality is identified. Reported By: SANJIV MCCOLLUM M.D. : VIT B12 1503 170 pg/mL (Abnormal) Range: 211-911 51 Comments: Performed At: [address] [id number] :19 CBC HCT 46.1 % (Normal) Range: [...] was performed using the TPSA method for theDimensiAqueSys chemistry system.Values obtained with different assay methods [...] pg/mL (Abnormal) Range: 211-911 Comments: Performed At: [address] [id number] Plan of Care Name Dates Details Instructions BMI 26.0-26.9,adult : Eprescribed prescriptions (G8553) Indication: [...] : Follow up in 2 [facility] with [facility] Indication: Smoker Smoker : Follow up in [...] Planned Observations CBC, Platelets & Auto Diff (39393)Indication: Testosterone deficiency On: : Request Comments: to be done March 2017 HEPATIC FUNCTION PANEL (06502)Indication: Testosterone deficiency On: : Request Comments: to be done March 2017 Metabolic Panel, Comprehensive (68180)Indication: Testosterone deficiency On: : Request Comments: to be done in March 2017 MICROALBUMIN: CREATININE RATIO (60462) AND (46188)Indication: Hypertension On: 06-Ttx-902400:04 Request URINALYSIS (51634)Indication: Hypertension On: 99-Jhq-646308:02 Request Urinalysis, Office (49210)Indication: Preop examination On: 07-Mhr-435748:45 Request HgA1C , Office (21034)Indication: Impaired fasting glucose On: 04-Azg-140951:59 Request MICROALBUMIN: CREATININE RATIO (22627) AND (36346)Indication: Hypertension On: 01-Dec-20158:35 Request Urinalysis, Office (51056)Indication: Abdominal wall pain On: 74-Oyg-346450:30 Request Vitamin B-12 (cyanocobalamin) (68109)Indication: B12 deficiency On: :37 Request CALCIFIDIOL (43343) VIT D 25Indication: Vitamin D deficiency, unspecified On: :37 Request METABOLIC PANEL, COMPREHENSIVE (71350)Indication: Hypertension On: :37 Request LIPID PANEL (76186)Indication: Hypertension On: :37 Request CBC with auto diff (19419)Indication: Hypertension On: :37 Request CALCIFEDIOL (09344)Indication: Vitamin D deficiency, unspecified On: 36-Oct-328780:58 Request HgA1C , Office (44742)Indication: Impaired fasting glucose On: :21 Request Blood Glucose , Office (45891)Indication: Impaired fasting glucose On: :21 Request METABOLIC PANEL, COMPREHENSIVE (91941)Indication: Hypertension On: 72-Pyb-585469:15 Request LIPID PANEL (22024)Indication: Hypertension On: 17-Ndo-811839:15 Request CALCIFEDIOL (25924)Indication: Vitamin D deficiency, unspecified On: 0-Quo-770248:46 Request ALCOHOL, ETHYL (BLOOD) (26918)Indication: Alcohol abuse, continuous drinking behavior On: 32-Tlo-264979:45 Request ALCOHOL, ETHYL (BLOOD) (48966)Indication: Other and unspecified alcohol dependence, unspecified drinking behavior On: 47-Vpb-195145:19 Request CALCIUM SERUM (79638)Indication: Dysuria On: 25-Dgt-12469:42 Request Potassium Serum (19746)Indication: Hypopotassemia On: 19-Jnk-244437:36 Request Comments: recheck in 2 weeks Magnesium (32377)Indication: Hypopotassemia On: 99-Xsg-140933:36 Request Comments: re check in 2 weeks MAGNESIUM (49889)Indication: Other symptoms and signs involving general sensations and perceptions On: 8-Clm-653132:19 Request Potassium Serum (78643)Indication: Hypopotassemia On: 5-Wro-271129:29 Request Magnesium (10562)Indication: Hypopotassemia On: 1-Wcu-256177:29 Request Phosphorus (27409)Indication: Hypopotassemia On: 9-Pva-187689:29 Request Metabolic Panel, Basic (35325)Indication: Hypopotassemia On: 9-Coe-257809:19 Request TSH (21434)Indication: Abnormal TSH On: 37-Wyd-615512:45 Request ASM (ANTI SMOOTH MUSCLE ANTIBODY) (05238)Indication: Elevated LFTs On: 43-Osx-425076:05 Request CALCIFIDIOL (01977) VIT D 25Indication: Vitamin D deficiency, unspecified On: 64-Sud-489766:01 Request Metabolic Panel, Comprehensive (03190)Indication: Hypertension On: 05-Dny-148357:47 Request Drug Screen (Urine 6-Panel) (79571)Indication: Other and unspecified alcohol dependence, unspecified drinking behavior On: 00-Wiw-871216:25 Request THIAMINE (B-1) (59653)Indication: Other and unspecified alcohol dependence, unspecified drinking behavior On: 89-Oln-838591:24 Request CBC (Auto) (80641)Indication: Fatigue On: :22 Request Lipid Panel (66688)Indication: Hypertension On: :22 Request Metabolic Panel, Comprehensive (16949)Indication: Fatigue On: :22 Request TSH (37698)Indication: Anxiety On: :22 Request Vitamin B-12 (cyanocobalamin) (13445)Indication: B12 deficiency On: : Request Hemoglobin Glyclated (HGB A1C) (45294)Indication: Candidiasis, mouth On: : Request HIV-1 ANTIBODY (34485)Indication: Candidiasis, mouth On: : Request Vitamin B-12 (cyanocobalamin) (79796)Indication: B12 deficiency On: :26 Request Metabolic Panel, Comprehensive (26392)Indication: Impaired fasting glucose On: :26 Request CALCIFEDIOL (00106)Indication: Vitamin D deficiency, unspecified On: :25 Request METABOLIC PANEL, COMPREHENSIVE (23826)Indication: Hypertension On: 71-Jfz-149081:20 Request LIPID PANEL (01360)Indication: Hypertension On: 55-Fxf-651528:20 Request CBC WITH MANUAL DIFF (59489)Indication: Hypertension On: 24-Nra-459083:20 Request Vitamin B-12 (cyanocobalamin) (47918)Indication: B12 deficiency On: 89-Lmv-290777:20 Request CALCIFIDIOL (10737) VIT D 25Indication: Fatigue On: 68-Kei-168701:19 Request TSH (39648)Indication: Fatigue On: 36-Djs-269164:19 Request Metabolic Panel, Comprehensive (07877)Indication: Impaired fasting glucose On: 31-Pnm-782733:20 Request Comments: in three months (approximately) Metabolic Panel, Basic (83042)Indication: Hypertension On: :19 Request Comments: 2 weeks CBC (Auto) (42731)Indication: Alcohol abuse, continuous drinking behavior On: :17 Request Lipid Panel (78291)Indication: Impaired fasting glucose On: :16 Request Comments: in three months (approximately) Methylmalonic acid, serum 34793Tvemmqpitu: B12 deficiency On: :16 Request Comments: in three months (approximately) Vitamin B-12 (cyanocobalamin) (03940)Indication: B12 deficiency On: 71-Yya-223626:16 Request Comments: in three months (approximately) CCP ANTIBODY (54214)Indication: Pain in unspecified joint On: :56 Request HgA1C , Office ([id number])Indication: Impaired fasting glucose On: 62-Wvi-196084:40 Request CARINE CULTURE-STOOL ([id number])Indication: Diarrhea On: :52 Request C-DIFFICILE, STOOL ([id number])Indication: Diarrhea On: :52 Request LEUKOCYTE COUNT, FECAL ([id number])Indication: Diarrhea On: :52 Request OCCULT BLOOD FECES SCREEN ([id number])Indication: Diarrhea On: :52 Request OVA & PARASITE DIR SMEAR ([id number])Indication: Diarrhea On: :52 Request Metabolic Panel, Basic ([id number])Indication: Hypertension On: :05 Request Metabolic Panel, Basic ([id number])Indication: Hypertension On: :41 Request Vitamin B-12 (cyanocobalamin) (51138)Indication: B12 deficiency On: :41 Request Comments: 8 weeks CBC (Auto) ([id number])Indication: Diarrhea On: :07 Request Metabolic Panel, Basic ([id number])Indication: Diarrhea On: 5-Gcq-615277:07 Request VITAMIN B-12 (CYANOCOBALAMIN) ([id number])Indication: B12 deficiency On: 7-Uty-301351:04 Request Comments: methylmalonic acid CARINE CULTURE-STOOL ([id number])Indication: Diarrhea On: 0-Gso-431941:58 Request LEUKOCYTE COUNT, FECAL ([id number])Indication: Diarrhea On: 3-Evo-910178:58 Request C.Difficile, Stool ([id number])Indication: Diarrhea On: 2-Yam-764075:58 Request OVA & PARASITE DIR SMEAR ([id number])Indication: Diarrhea On: 5-Eql-954075:58 Request Vitamin B-12 (cyanocobalamin) (52215)Indication: B12 deficiency On: 3-Umr-158902:53 Request Planned Procedures Flu Vaccine (Quadrivalent) On: 08-Aug-2018 Intent [id number]: aLuryn Hanson Comments: Lot #[id number]-L dltd, IMDose prefilled syringegiven by:LAMAR Sullivan reviewed and ABN signed ELECTROCARDIOGRAM, COMPLETE On: 17-May-2018 Intent (ECG) (04573)By: Devaughn PASTOR, Comments: nsr no acute chg Jazmine ATTENDED SLEEP STUDY (87958)By: On: 08-May-2018 Intent Jailene Mayfield CNP, CNP, Mary E SPIROMETRY ([id number])By: Tran On: 06-Jan-2018 Intent Jailene LOTT CNP, Mary E Comments: normal Aerosol Treatment ([id number])By: On: 19-Dec-2017 Intent Sue Rooney Comments: Lungs clear after aerosol treatment. CHEST XRAY, PA & LATERAL On: 19-Dec-2017 Intent (03298)By: Sue Rooney Radiology - Lumbar SpineBy: On: 19-Dec-2017 Intent Sue Rooney Flu Vaccine (Quadrivalent) On: 20-Sep-2017 Intent [id number]: Jailene Mayfield CNP Comments: QUAD flu 0.5ml injectionlot number: [id number]: 02/2018R Deltoid IMpt tolerated wellAD CURING FINISHER Jailene Mayfield CNP Nuclear Stress Test/Stress On: 25-May-2017 Intent SPECT/AdenosineBy: Jailene Mayfield CNP, CNP, Mary E Echo CompleteBy: Tran OLTT, On: 25-May-2017 Intent Jailene Puri CNP Holter Monitor 24 hrsBy: Tran On: 16-May-2017 Intent Jailene LOTT CNP, Mary E ELECTROCARDIOGRAM, COMPLETE On: 16-May-2017 Intent (ECG) (68988)By: Tran LOTT, Comments: sinus bradicardia and widening QT Jailene Vega Tran LOTT Jailene Vega Ultrasound - ThyroidBy: Nicholasa On: 29-Mar-2017 Intent KAYLIE Jailene Vega Tran LOTT Jailene Vega Flu Vaccine (Quadrivalent) On: 12-Jan-2017 Intent [id number]: Tran LOTT Aurelia Comments: Lot:[id number]:05/27/17Dose:0.5mLRoute:IMSite:L DltdGiven By:JOHANNE signed Tran LOTT [place] PNEUM VAC ADLT/IMUMNOSPR, On: 12-Jan-2017 Intent SBC/INTRM (36626)By: Tran LOTT, Comments: Lot:[id number]:04/16/18Dose:0.5mgRoute:imSite:r armGiven By:JOHANNE signed AureliaGary Mayfield CNP [facility] Radiology - Chest- PA and On: 02-Dec-2016 Intent LatBy: Jazmine Cantor DO Spirometry (03443)By: Devaughn On: 02-Dec-2016 Jazmine Lowry DO Comments: obstructive pattern Aerosol Treatment ([id number])By: On: 02-Dec-2016 Intent Jazmine Cantor DO Comments: more a/e but still inspir and exp noise - wheeze and rhonchi Solu- Medrol Injection, 125mg On: 02-Dec-2016 Intent (J2930)By: Jazmine Cantor DO Comments: solumedrollot:[id number]:05/16site:rt glutroute:IMdose:125mgD.ANN MARIE Gonzáles CHEST XRAY, PA & LATERAL On: 28-Sep-2016 Intent ([id number])By: Jailene Mayfield CNP, CNP [facility] Radiology - ChestBy: Tran LOTT, On: 21-Sep-2016 Intent AureliaGary Mayfield CNP [place] ELECTROCARDIOGRAM, COMPLETE On: 21-Sep-2016 Intent (ECG) (02224)By: Esequiel LANGSTON, Comments: sinus rthym Safia Ear Irrigation (70474)By: On: 19-Jul-2016 Intent Tran LOTT AureliaGary Mayfield CNP A[place]lia Wax CurettesBy: Waqar ALBARADO, On: 06-Feb-2016 Intent Jewell Kendall Ear Irrigation (80494)By: On: 06-Feb-2016 Intent Jewell Hadley MD EKG (45541)By: Waqar ALBARADO, On: 17-Jun-2015 Intent Jewell Kendall Comments: see scanned document of test done to see results reviewed today with patient VITAMIN B12 INJECTION On: 27-Mar-2015 Intent ([id number])By: Bethany Rehman Comments: Vitaman b12 Lot:[id number]:02/10Route:IMSite:L DeltoidDose: 1 mLgiven by:ANS INJECTION, VITAMIN B-12 On: 27-Mar-2015 Intent CYANOCOBALAMIN, UP TO 1000 MCG (Special Coverage Instructions Apply. See CIM: 45-4 and MCM: 2048) ([id number])By: Jewell Hadley MD Flu Vaccine (Quadrivalent) On: 09-Oct-2014 Intent [id number]: Jewell Hadley MD ADMINISTRATION OF INFLUENZA On: 09-Oct-2014 Intent VIRUS VACCINE ([id number])By: Jewell Hadley MD PHYSICAL THERAPY EVALUATION On: 17-May-2014 Intent ([id number])By: Jailene Mayfield CNP, CNP, Mary E Radiology - Cervical SpineBy: On: 17-May-2014 Intent Jailene Mayfield CNP, CNP, Mary E Eprescribed prescriptions On: 26-Mar-2014 Intent (G8553)By: Jewell Hadley MD IMMUNIZATION ADMIN ([id number])By: On: 12-Feb-2013 Intent Yoli Martinez LPN Comments: brought own B-12 Lot #[id number], exp. 11/10. given IM in L deltoid without difficylty or c/o voiced. jq INFUSION, NORMAL SALINE On: 12-Feb-2013 Intent SOLUTION , 1000 CC (Special Comments: Normal Saline, Lot #[id number], exp. June 10 infusing without infiltrate in L AC. JQ Coverage Instructions Apply. See MCM: 2048) (J7030)By: Jailene Mayfield CNP, CNP, Mary E HYDRATION IV INFUSION, INIT On: 12-Feb-2013 Intent (46771)By: Jailene Mayfield CNP Comments: IV initiated in: L ACwith 22 gaugenumber of attempts: X 1 Tolerated well: without difficulty or c/o voiced. Jailene Mayfield CNP Ultrasound - RenalBy: Ciesa On: 12-Feb-2013 Intent Jailene LOTT CNP, Mary E Nuclear Medicine - ThyroidBy: On: 28-Mar-2012 Intent Jewell Hadley MD Comments: scan and uptake B 12 Injection, 1000 mcg On: 23-Sep-2011 Intent (J3420)By: Carolann White RN Comments: pt brought in own medication for administration CT - Brain/Head (IV Contrast On: 21-May-2011 Intent Needed)By: Jewell Hadley MD Comments: creat 04-15 good Ultrasound - LiverBy: Waqar On: 19-Apr-2011 Intent Jewell ALBARADO Eprescribed prescriptions On: 09-Feb-2011 Intent (G8553)By: Jailene Mayfield CNP, CNP, Mary E Wax CurettesBy: Waqar ALBARADO, On: 23-Mar-2010 Intent Jewell Kendall Ear Irrigation (21785)By: On: 23-Mar-2010 Intent Jewell Hadley MD EKG (67213)By: Waqar ALBARADO, On: 23-Mar-2010 Intent Jewell Kendall PHYSICAL THERAPY EVALUATION On: 21-Jan-2010 Intent ([id number])By: Jailene Mayfield CNP, CNP, Mary E Yzeagzgua-Abk-Tlnx (05372)By: On: 07-Jul-2009 Intent Jazmine Cantor DO EKG (90568)By: Juan LANGSTON, On: 04-Apr-2009 Intent Yoli Ear Irrigation (34446)By: On: 30-Jan-2009 Intent Jewell Hadley MD Spirometry (59689)By: Waqar On: 28-Feb-2008 Intent Jewell ALBARADO Radiology - ChestBy: Waqar On: 18-Jan-2008 Intent Jewell ALBARADO B 12 Injection, 1000 mcg On: 02-Nov-2007 Intent (J3420)By: SHALINI Velazquez Comments: Lot #:[id number] date:ount given:1 ml Route: IMSite given:left deltoid Given by: darryl B 12 Injection, 1000 mcg On: 22-Sep-2007 Intent (J3420)By: Carolann White RN COLLECT VENOUS BLOOD, On: 25-Aug-2007 Intent VENIPUNCTURE (78744)By: Magda Viveros B 12 Injection, 1000 mcg [...] See CIM: 45-4 and MCM: 2049) (J3420)By: Carolann White RN B 12 Injection, 1000 mcg On: 21-Apr-2007 Intent (J3420)By: SHALINI Velazquez ELECTROCARDIOGRAM, COMPLETE On: 27-Mar-2007 Intent (ECG) (08836)By: Jewell Hadley MD B 12 Injection, 1000 mcg On: 27-Mar-2007 Intent (J3420)By: Jewell Hadley MD Pulse Oximetry (36890)By: On: 27-Mar-2007 Intent Jewell Hadley MD Spirometry (27181)By: Waqar On: 27-Mar-2007 Intent Jewell ALBARADO Radiology [...] 45-4 and MCM: 2048) (J3420)By: Marianne Beck ([id number])By: Waqar ALBARADO, On: 09-Dec-2006 Intent Jewell Kendall Planned Medications INFUSION, NORMAL SALINE SOLUTION , 1000 CC Ordered: 12-Feb-2013 Pending Jailene Mayfield CNP, CNP, Mary E INJECTION, METHYLPREDNISOLONE SODIUM SUCCINATE, UP TO 125 MG Ordered: 02-Dec-2016 Pending Jazmine Cantor DO Vitamin B-12 1000 MCG/ML Injection Solution Ordered: 23-Sep-2011 Pending Carolann White RN Vitamin B-12 1000 MCG/ML Injection Solution Ordered: 27-Mar-2015 Pending Jewell Hadley MD Instructions Name Dates Details BMI 26.0-26.9,adult : How to access health [...] enzymes : DISCONTINUED - ALCOHOL, ETHYL (BLOOD) (43677) Indication: Elevated liver enzymes Elevated liver enzymes : DISCONTINUED - HEPATIC FUNCTION PANEL (26666) Indication: Elevated liver enzymes Current smoker : [...] Instructions Indication: Anxiety Encounters Office Visit On: 08-Aug-2018 15:19 Encounter Reason: [...] left [facility] Nurse Visit On: 2-Apr-2018 13:39 Encounter Reason: Nurse procedure visit - [...] On: 23-Sep-2017 11:20 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 Pertinent medical history includes End: 29-Sep-2016 10:56 [...] for the procedure will be doctor antonieta [facility]. Pertinent medical history includes pr End: 21-Sep-2016 [...] patient does not have durable power of county attorney or living will. The patient has [...] Note for Transition into care: Stress test shouewd myocardial ishcemia following with Blaire Had cardiac [...] Note for Transition into care: Stress test shouewd myocardial ishcemia following with End: 08-Jul-2014 10:52 [...] Test Results - Lab results: other (review 11/10 labs). Date: (10/07/09). Current symptoms/reason for visit [...] Note for Leg pain: moving furniture on [facility] felt pop and pull yesterday. [...] [facility] Payers [employer] guarantor
--- OUTSIDE RECORDS SUMMARY | 2018-12-20 02:31 | XMS RPT_ITS | Continuity of Care Document ---
:1950 Author Organization [facility] Address [address] [place] [address] Phone Care Team Providers Name Role Phone Jailene Mayfield CNP Unavailable Dr. Ger Gaston Unavailable Jennifer Osuna Unavailable Wesley Sousa Unavailable [facility] Unavailable Blaire ALBARADO, Domenic Mancilla Unavailable Jessica [...] months doing well seeing Rogerio Freitas at [facility]. stil work with him on and off. [...] updated, rec. local pharm for tetanus and Ckworhp04,whisper test=WNL mini mental=30/30 Status: Active Erectile disorder, [...] prevacid 3, wean nexium and take acid retail buyer as needed. Status: Active Hearing loss of [...] leg cramps (G47.62, 327.52) Comments: using micah [employer] with help Status: Active Nocturnal leg cramps [...] Comments: two low T's done 09-21-16 and 2-1-06jcdzfn labs good, recheck psa and then cbc, [...] Jailene Vega Start : 20-Sep-2017 Active Ergocalciferol 59630 UNIT Oral Capsule 1 (one) Capsule Capsule [...] Quantity: 21 {Tablet} Refills: 0 Ordered:08-May-2018 Esequiel LICENSED PHARMACISTOswald Delgadilloa Start : 19-Dec-2017 End : 08-May-2018 Inactive DEXILANT, 60MG (Oral Capsule Delayed Release) [address] qd for 0 days Quantity: 90 {Capsule_DR} Refills: 3 Ordered:26-Mar-2014 Long LICENSED PHARMACIST, Mehnaz L Start : 06-Nov-2012 End : 26-Mar-2014 Inactive DEXILANT, 60MG (Oral Capsule Delayed Release) [address] qd for 0 days Quantity: 90 {Capsule_DR} Refills: 3 Ordered:26-Mar-2014 Long LICENSED PHARMACIST, Mehnaz L Start : 06-Nov-2012 End : 26-Mar-2014 Inactive DICYCLOMINE HCL, 20MG (Oral Tablet) uad Tablet BID/PRN for 0 days Quantity: 30 {Tablet} Refills: 3 Ordered:26-Mar-2014 Long LICENSED PHARMACIST, Mehnaz L Start : 03-Mar-2011 End : [...] End : 16-Dec-2014 Inactive Comments:watch sunsensitivity DRISDOL, 82956OYJO (Oral Capsule) 1 Capsule three times weekly for 0 days Quantity: 12 {Capsule} Refills: 3 Ordered:26-Mar-2014 Long LICENSED PHARMACIST, Mehnaz L Start : 15-Feb-2012 End : 26-Mar-2014 Inactive Exforge 5-160 MG Oral Tablet 1 (one) Tablet QD for 0 days Quantity: 90 {Tablet} Refills: 1 Ordered:20-Feb-2018 Tran LOTT, Jailene Frias CNP Start : 29-Nov-2017 End : 20-Feb-2018 Inactive Exforge 5-320 MG Oral Tablet 1 (one) Tablet daily for 0 days Quantity: 90 {Tablet} Refills: 3 Ordered:26-Jul-2018 Jailene Mayifeld CNP, CNP, Mary E Start : 24-Jul-2018 [...] Quantity: 10 {Tablet} Refills: 4 Ordered:21-Mar-2017 Slarb LICENSED PHARMACIST, Safia Start : 06-Feb-2016 End : 21-Mar-2017 Discontinued Vitamin B Complex Oral Tablet 1 (one) Tablet daily for 30 days Quantity: 30 {Tablet} Refills: 0 Ordered:13-Jun-2017 Slarb LICENSED PHARMACIST, Safia Start : 16-May-2017 End : 13-Jun-2017 Discontinued Vitamin B1 100 MG Oral Tablet 1 (one) Tablet Tablet bid for 0 days Quantity: 30 {Tablet} Refills: 0 Ordered:21-Sep-2016 Slarb LICENSED PHARMACIST, Safia Start : 08-Jul-2014 End : 21-Sep-2016 [...] Comments: doing well seeing Rogerio Freitas at [facility]. doing well. Currently in remission. doing AA [place] meeting every tuesday. going every other week. [...] ear cyst Surgery Nov Dr. Chauhan at [facility] surgery center Status: Inactive as of [...] W/WO Contrast Result: Comments: See Note; NOTES: [facility] Imaging Services [address] [place] [address] CT Abd/Pelvis W/WO Contrast MR#: [id number] Acct: [id number] Name: WILBERT SEGURA Rep # : [id number] : 1950 M 68 From: Syed Kraft PCP: Jailene Mayfield NP Status: REG CLI Study: CT Abd/Pelvis W/WO Contrast Date of Exam: 08/22/18 Exam# [id number] Ordering Dr: Gloria Batista SYSTEMS ANALYST ENGINEER-C STUDY: CT ABDOMEN AND PELVIS WITH AND [...] CC: Jailene Mayfield NP; Gloria Batista NP Altitude Chamber Technician: Signed 05-Jul-[address] Lung Screening Result: Comments: See Note; NOTES: [facility] Imaging Services [address] [place] [address] Lung Screening MR#: [id number] Acct: [id number] Name: WILBERT SEGURA Toni Rep #: [id number] : 1950 M 68 From: Omar Montes De Oca MD PCP: Jailene Mayfield NP Status: REG CLI Study: Low Dose CT Lung Screening Date of Exam: 07/05/18 Exam# [id number] Ordering Dr: Jhony Yusuf MD STUDY: CT [...] , Service support , CC: Jailene Mayfield SYSTEMS ANALYST ENGINEER; Jhony Yusuf MD Altitude Chamber Technician: Signed 03-Jul-2018 Pelvis 1 or 2 Views Result: Comments: See Note; NOTES: [facility] Imaging Services [address] [place] [address] Pelvis 1 or 2 Views MR#: [id number] Acct: [id number] Name: WILBERT SEGURA Rep #: [id number] : 1950 M 68 From: Yuridia Dey MD PCP: Jailene Mayfield NP Status: REG CLI Study: Pelvis 1 or 2 Views Date of Exam: 07/03/18 Exam# [id number] Ordering Dr: July Mazariegos MD STUDY: X-RAY [...] CC: Jailene Mayfield NP; July Mazariegos MD Altitude Chamber Technician: Signed 19-Dec-2017 Chest PA and Lateral Result: Comments: See Note; NOTES: [facility] Imaging Services [address] [place] [address] Chest PA and Lateral MR#: [id number] Acct: [id number] Name: WILBERT SEGURA Rep #: [id number] : 1950 M 67 From: Liu Fatima DO PCP: Jailene Mayfield NP Status: REG CLI Study: Chest PA and Lateral Date of Exam: 12/19/17 Exam# [id number] Ordering Dr: Sue Rooney STUDY: X-RAY THANH [...] Signed: Orlando Whalen at 13:03 EST Tel [phone], Service support , CC: Jailene Mayfield NP; ANGELICA Rooney Altitude Chamber Technician: Signed 19-Dec-2017 Chest PA and Lateral Result: Comments: See Note; NOTES: [facility] Imaging Services [address] [place] [address] Chest PA and Lateral MR#: [id number] Acct: [id number] Name: WILBERT SEGURA Rep #: [id number] : 1950 M 67 From: Liu Fatima DO PCP: Jailene Mayfield NP Status: REG CLI Study: Chest PA and Lateral Date of Exam: 12/19/17 Exam# [id number] Ordering Dr: Sue Rooney STUDY: X-RAY THANH [...] Signed: Orlando Whalen at 13:03 EST Tel [phone], Service support , CC: Jailene Mayfield NP; RUMA-C Sue Rooney Altitude Chamber Technician: Signed 19-Dec-2017 L/S Spine Min 4 Views Result: Comments: See Note; NOTES: [facility] Imaging Services [address] [place] [address] L/S Spine Min 4 Views MR#: [id number] Acct: [id number] Name: WILBERT SEGURA Rep #: [id number] : 1950 M 67 From: Liu Fatima DO PCP: Jailene Mayfield NP Status: REG CLI Study: L/S Spine Min 4 Views Date of Exam: 12/19/17 Exam# [id number] Ordering Dr: Sue Rooney STUDY: X-RAY - [...] Liu Fatima DO at 13:02 EST Tel [phone], Service support , CC: Jailene Mayfield NP; ANGELICA Rooney Altitude Chamber Technician: Signed 04-Apr-2017 Thyroid Result: Comments: See Note; NOTES: [facility] Imaging Services [address] [place] [address] Verdana 4d Thyroid MR#: [id number] Acct: [id number] Name: WILBERT SEGURA Rep #: [id number] : 1950 M 67 From: Liu Fatima DO PCP: Jailene Mayfield Status: REG CLI Study: Thyroid Date of Exam: 04/04/17 Exam# [id number] Ordering Dr: Jailene Mayfield STUDY: THYROID ULTRASOUND [...] Liu Fatima DO at 8:53 EDT Tel [phone], Service support , Fax CC: Jailene Mayfield Altitude Chamber Technician: Signed 02-Dec-2016 Chest PA and Lateral Result: Comments: See Note; NOTES: [facility] Imaging Services [address] [place] [address] Verdana 4d Chest PA and Lateral MR#: [id number] Acct: [id number] Name: WILBERT SEGURA Toni Espinoza #: [id number] : 1950 M 66 From: Liu Fatima DO PCP: Jailene Mayfield Status: REG CLI Study: Chest PA and Lateral Date of Exam: 12/02/16 Exam# [id number] Ordering Dr: Jazmine Cantor DO STUDY: X [...] Liu Fatima DO at 12:13 EST Tel [phone], Service supp ort [phone], CC: Jailene Mayfield; Jazmine Cantor DO Altitude Chamber Technician: Signed 08-Nov-2016 Chest 1 View (Portable) Result: Comments: See Note; NOTES: [facility] Imaging Services [address] [place] [address] Verdana 4d Chest 1 View (Portable) MR#: [id number] Acct: [id number] Name: WILBERT SEGURA Rep #: [id number] : 1950 66 From: Maxi Arana MD PCP: Jailene Mayfield Status: REG ER Study: Chest 1 View (Portable) Date of Exam: 11/08/16 Exam# [id number] Ordering Dr: Leon Rodrigues MD UDY: X-RAY [...] Maxi Arana MD at 9:02 EST Tel [phone], Service support [phone], CC: Ann Marie Mayfield; Leon Rodrigues MD Altitude Chamber Technician: Signed 28-Sep-2016 Chest PA and Lateral Result: Comments: See Note; NOTES: [facility] Imaging Services [address] [place] [address] Verdana 4d Chest PA and Lateral MR#: [id number] Acct: [id number] Name: WILBERT SEGURA Rep #: [id number] : 1950 M 66 From: Tree Saul MD PCP: Jailene Mayfield Status: REG CLI Study: Chest PA and Lateral Date of Exam: 09/28/16 Exam# [id number] Ordering Dr: Jailene Mayfield STUDY: X-RA Y [...] MD at 21:06 EDT , Service support [phone], CC: Jailene Mayfield Altitude Chamber Technician: Signed 21-Sep-2016 Chest PA and Lateral Result: Comments: See Note; NOTES: [facility] Imaging Services [address] [place] [address] Verdana 4d Chest PA and Lateral MR#: [id number] Acct: [id number] Name: WILBERT SEGURA Rep #: [id number] : 1950 M 66 From: Maxi Arana MD PCP: Jailene Mayfield Status: REG CLI Study: Chest PA and Lateral Date of Exam: 09/21/16 Exam# [id number] Ordering Dr: Jailene Mayfield STUDY: X-RAY CHEST [...] Arana MD 2015 at 15:14 EDT Tel [phone], Service support [phone], CC: Jailene Mayfield Altitude Chamber Technician: Signed 06-Feb-2016 Spirometry (83985) Comments: see scanned document of test done to see results reviewed today with patient Result: 20-May-2014 Cerv Spine 4 or 5 Views Result: Comments: See Note; NOTES: [facility] Imaging Services [address] [place] [address] Radiology Report MR#: [id number] Acct: [id number] Name: WILBERT SEGURA Rep #: [id number] : 1950 M 64 From: Liu Fatima DO PCP: Jewell Hadley MD Status: REG CLI Study: Cerv Spine 4 or 5 Views Date of Exam: 05/20/14 Exam# [id number] Ordering Dr: Jailene Mayfield STUDY: X-RAY - [...] Liu Fatima DO at 9:03 EDT Tel [phone], Service support [phone], CC: Jailene Mayfield; Jewell Hadley MD Altitude Chamber Technician: Signed Family History Unknown Family Member Name [...] kg/m2 Body Surface Area Calculated 2.09 m2 9-Hdg-235590:20 Temperature 98.2 f Pulse 82 /min Comments: [...] Description Value Details :28 CREATININE FINGERSTICK Comments: [facility] [place] [address] [place] [address] CREATININE WB 0.8 mg/dL (Normal) Range: 0.70-1.30 [...] ANTI-ABIGAIL <0.2 {AI} (Normal) Range: 0.0-0.9 :41 Uvkv-Qpknyvoivky-09 AB Comments: [facility] (refer to report for specific site)refer to report for address and phone number ANTISCLER <0.2 {AI} (Normal) Range: 0.0-0.9 :41 ANTINUCLEAR ANTIBODIES DIRECT Comments: [facility] (refer to report for specific site)refer to report for address and phone number ALISON-DIRECT Positive (Abnormal) Comments: Performed at: - [facility] [id number] Director: Ger Gonzalez PhD, Phone: [phone] :41 CBC W/Diff, Automated Comments: [facility] [address], [place], [id number] Absolute Lymph 1.86 {X10_3/ul} (Normal) Range: 0.83-4.51 [...] report for address and phone number ANTI-CCP 174710 5 {units} (Normal) Range: 0-19 Comments: Negative [...] Range: 14-44 :41 Comprehensive Metabolic Profil Comments: [facility] [address] [place], [place], [id number] GAP 5 (Normal) Range: 5-15 CO2 29.0 [...] Comments: Please note revised GLUCOSE reference range kaauozuxz93/02/2018. :41 Hep B Surface Antibodies Comments: [facility] [...] AG Negative (Normal) Comments: Performed at: - [facility] [id number] Director: Ger Gonzalez PhD, Phone: [phone] at: [facility] [id number] Director: Raghu Bowles PhD, Phone: [phone] at: [facility] [id number] Director: Glenn Armijo MD, Phone: [phone] :41 Hepatitis C Antibodies Comments: [facility] (refer to report for specific site)refer to report for address and phone number HEP C AB <0.1 {s/co_ratio} Range: 0.0-0.9 (Normal) Comments: Negative: < 0.8 Indeterminate: 0.8 - 0.9 Positive: > 0.9 The CDC recommends that a positive HCV antibody result be followed up with a HCV Nucleic Acid Amplification test (284990). : HLA B27 Negative (Normal) Comments: [facility] (refer to report for specific site)refer to report for address and phone number 41 Comments: HLA-B*27 BnekxehvF15 allele interpretation for all loci based on IMGT/HLAdatabase version 3.27This test was developed and its performance characteristicsdetermined by [facility]. It has not been cleared o r approvedby the Food and Drug Administration.[facility] Lab CLIA ID Number [id number] test was performed using PCR (Polymerase ChainReaction)/SSOP (Sequence Specific Oligonucleotide Probes)technique. SBT (Sequence Based Typing) and/or SSP(Sequence Specific Primers) may be used as supplementalmethods when necessary. Please contact [facility] CustomerService at if you have any questions. Director of [facility] Laboratory Dr Raghu Bowles, PhD 0-Oqv-016352:41 Protein+Creatinine Ratio,Urine Comments: [facility] Piickfumns[address] [facility] [address] [place], [place], [id number] PROT:CRE RATIO 102 {mg/g_CRE} (Normal) Range: 0-200 PROTEIN,UR.RAN. 17.0 mg/dL (Abnormal) UR CREAT 166.00 mg/dL (Normal) 8-Kna-468339:41 Urinalysis, Routine (Dipstick) Comments: How was Urine Obtained? [facility] [address] [facility]. [place], [place], [id number] LEUK ESTERASE 25 /ul (Abnormal) OCCULT BLOOD-UR 10 /ul (Abnormal) NITRITE UR Negative (Normal) UROBILI 4 mg/dL (Abnormal) PROT DIPSTX Negative mg/dL (Normal) pH UR 7.0 (Normal) Range: 5.0 - 8.0 SP.GR. DIPSTX 1.015 (Normal) Range: 1.002-1.030 KETONE UR Negative mg/dL (Normal) BILIRUBIN URINE Negative mg/dL (Normal) GLUCOSE, UR Normal mg/dL (Normal) CLARITY Clear (Normal) COLOR Yellow (Normal) 1-Hsq-284261:35 CBC, Platelets & Auto Diff Comments: PATIENT NOT FASTINGPERFORMED BY: [facility] Dfoikh4705 [facility] [id number] (27294) Immature Grans (Abs) 0.0 {x10E3/uL} (Normal) Range: [...] 4.14-5.80 WBC 8.2 {x10E3/uL} (Normal) Range: 3.4-10.8 60-Msp-491739:24 Systemic Lupus Profile A Comments: PATIENT NOT FASTINGPERFORMED BY: [facility]CoSaint [facility] HospitalDcboin4331 [facility] [id number] Anti-DNA (DS) Ab Qn 16 {IU/mL} Range: 0-9 (Abnormal) Comments: Negative <5 Equivocal 5 - 9 Positive >9 Sjogren's Anti-SS-B <0.2 {AI} (Normal) Range: 0.0-0.9 Sjogren's Anti-SS-A <0.2 {AI} (Normal) Range: 0.0-0.9 Antichromatin Antibodies 0.3 {AI} (Normal) Range: 0.0-0.9 RA Latex Turbid. <10.0 {IU/mL} Range: 0.0-13.9 (Normal) Diaz Antibodies <0.2 {AI} (Normal) Range: 0.0-0.9 HOSPITALITY DIRECTOR Antibodies <0.2 {AI} (Normal) Range: 0.0-0.9 17-May-2018 Written Authorization WAR (Normal) Comments: PATIENT NOT FASTINGPERFORMED BY: [facility] Qshlai7591 [facility] [id number] 11:24 Comments: Written Authorization Received.Authorization received from SHALINI VELAZQUEZ LPN 34-03-2730Qxzxgb by Yoli Mcginnis 22-Zfr-148231:24 HGB A1C (60991) Comments: PATIENT NOT FASTINGPERFORMED BY: [facility] Asubrq0225 [facility] [id number] Hemoglobin A1c 5.7 % (Abnormal) Range: 4.8-5.6 Comments: . Pre-diabetes: 5.7 - 6.4 Diabetes: >6.4 Glycemic control for adults with diabetes: <7.0 18-Sxc-611330:24 EBV ACUTE PFOF IgG/IgM Comments: PATIENT NOT FASTINGPERFORMED BY: [facility] Hjsuat4229 [facility] [id number] (70133) Interpretation: [facility] (Normal) Comments: EBV Interpretation Chart . Interpretation [...] 43.9 Positive >43.9 :24 CMV IGM ANTBDY (87099) Comments: PATIENT NOT FASTINGPERFORMED BY: [facility] Mjffbz3209 [facility] [id number] Cytomegalovirus (CMV) Ab, IgM <30.0 AU/mL (Normal) Range: 0.0-29.9 Comments: Negative <30.0 Equivocal 30.0 - 34.9 Positive >34.9 A positive result is generally indicative of acute infection, reactivation or persistent IgM production. :24 CALCIFIDIOL (99302) VIT D 25 Comments: PATIENT NOT FASTINGPERFORMED BY: [facility] Bamrwy4855 [facility] [id number] Vitamin D, 25-Hydroxy 63.7 ng/mL (Normal) Range: 30.0-100.0 Comments: Vitamin D deficiency has been defined by the [place] ofMary [facility] Hospitalcine and an Endocrine Society practice guideline as alevel of serum 25-OH vitamin D less than 20 ng/mL (1,2).The Endocrine Society went on to further define vitamin Dinsufficiency as a level between 21 and 29 ng/mL (2).1. IOM ([place] of Medicine). 2010. Dietary reference intakes for calcium and D. [place]: The National Academies Press.2. Clifton MF, Robbi NC, Ladarius GONZALES, et al. Evaluation, treatment, and prevention of vitamin D deficiency: an Endocrine Society clinical practice guideline. JCEM. 2010; 96(7):1911-30. 99-Pii-970109:24 VITAMIN B-12 (CYANOCOBALAMIN) Comments: PATIENT NOT FASTINGPERFORMED BY: [facility] Gwsfxu9076 [facility] [id number] (80936) Vitamin B12 476 pg/mL (Normal) Range: 232-1245 43-Tgz-923162:24 TSH (28467) Comments: PATIENT NOT FASTINGPERFORMED BY: [facility] Jtcfst9192 [facility] [id number] TSH 0.509 {uIU/mL} (Normal) Range: 0.450-4.500 98-Mns-656032:24 SED RATE ERYTHROCYTE (80108) Comments: PATIENT NOT FASTINGPERFORMED BY: [facility] HospitalKcbjjs5950 [facility] [id number] Sedimentation Rate-Westergren 2 mm/h (Normal) Range: 0-30 40-Nud-011528:24 METABOLIC PANEL, COMPREHENSIVE Comments: PATIENT NOT FASTINGPERFORMED BY: [facility] Ffyryr5219 [facility] [id number] (70545) ALT (SGPT) 15 [iU]/L (Normal) Range: 0-44 [...] 8-27 Glucose 101 mg/dL (Abnormal) Range: 65-99 49-Jvv-873902:24 C-REACTIVE PROTEIN (59422) Comments: PATIENT NOT FASTINGPERFORMED BY: [place] 90[address]370 [facility] [id number] C-Reactive Protein, Quant 5.5 mg/L (Abnormal) Range: 0.0-4.9 61-Xkq-420584:24 CBC (AUTO) (54318) Comments: PATIENT NOT FASTINGPERFORMED BY: [address] [id number] Platelets 232 {x10E3/uL} (Normal) Range: 150-379 RDW 13.4 % (Normal) Range: 12.3-15.4 MCHC 34.2 g/dL (Normal) Range: 31.5-35.7 MCH 33.3 pg (Abnormal) Range: 26.6-33.0 MCV 97 fL (Normal) Range: 79-97 Hematocrit 47.9 % (Normal) Range: 37.5-51.0 Hemoglobin 16.4 g/dL (Normal) Range: 13.0-17.7 RBC 4.92 {x10E6/uL} (Normal) Range: 4.14-5.80 WBC 7.0 {x10E3/uL} (Normal) Range: 3.4-10.8 97-Pfq-307038:24 ALISON (ANTINUCLEAR ANTIBODY) Comments: PATIENT NOT FASTINGPERFORMED BY: [address] [id number] (92292) ALISON Direct Positive (Abnormal) :41 MAGNESIUM (58546) Comments: PATIENT NOT FASTINGPERFORMED BY: [place] 9044370 [facility] [id number] Magnesium 2.2 mg/dL (Normal) Range: 1.6-2.3 46-Fgi-72427:41 TSH (58095) Comments: PATIENT NOT FASTINGPERFORMED BY: [address] [id number] TSH 1.070 {uIU/mL} (Normal) Range: 0.450-4.500 83-Fyd-47245:41 CBC, Platelets & Auto Diff Comments: PATIENT NOT FASTINGPERFORMED BY: [facility]6370 [facility] [id number] (07043) Immature Grans (Abs) 0.0 {x10E3/uL} (Normal) Range: [...] 4.14-5.80 WBC 8.3 {x10E3/uL} (Normal) Range: 3.4-10.8 28-Qri-45804:41 Metabolic Panel, Comprehensive Comments: PATIENT NOT FASTINGPERFORMED BY: [facility]6370 [facility] [id number] (06352) ALT (SGPT) 16 [iU]/L (Normal) Range: 0-44 [...] 8-27 Glucose 99 mg/dL (Normal) Range: 65-99 62-Swb-645841:20 HgA1C , Office (85054) HgA1C , Office 5.5 % (Normal) Range: 4.6 - 7.1 :31 LIPID PANEL (64012) Comments: PATIENT WAS FASTINGPERFORMED BY: [facility] HospitalJkwobf6566 [facility] [id number] LDL/HDL Ratio 2.1 {ratio_units} (Normal) Range: 0.0-3.6 [...] 173 mg/dL (Normal) Range: 100-199 :31 CALCIFEDIOL (02700) Comments: PATIENT WAS FASTINGPERFORMED BY: [facility]6370 [facility] [id number] Vitamin D, 25-Hydroxy 54.2 ng/mL (Normal) Range: 30.0-100.0 Comments: Vitamin D deficiency has been defined by the [place] ofMedicine and an Endocrine Society practice guideline as alevel of serum 25-OH vitamin D less than 20 ng/mL (1,2).The Endocrine Society went on to further define vitamin Dinsufficiency as a level between 21 and 29 ng/mL (2).1. IOM ([place] of Medicine). 2010. Dietary reference intakes for calcium and D. [place]: The National Academies Press.2. Clifton MF, Robbi MADRID, Ladarius GONZALES, et al. Evaluation, treatment, and prevention of vitamin D deficiency: an Endocrine Society clinical practice guideline. JCEM. 2010; 96(7):1911-30. :31 CBC, Platelets & Auto Diff Comments: PATIENT WAS FASTINGPERFORMED BY: [facility]CoDzilth-[facility]le Health CenterKpopau9081 [facility] [id number] (28312) Immature Grans (Abs) 0.0 {x10E3/uL} (Normal) Range: [...] 6.4 {x10E3/uL} (Normal) Range: 3.4-10.8 :31 TSH (05227) Comments: PATIENT WAS FASTINGPERFORMED BY: [employer] DBA eGifterDzilth-Na-[facility]-Dith-Hle Health CenterNkmyrd2148 [facility] [id number] TSH 0.564 {uIU/mL} (Normal) Range: 0.450-4.500 :31 Metabolic Panel, Comprehensive Comments: PATIENT WAS FASTINGPERFORMED BY: SurfkitchenDzilth-Na-[facility]-Dith-Hle Health CenterWreifi8974 [facility] [id number] (48679) ALT (SGPT) 11 [iU]/L (Normal) Range: 0-44 [...] 110 mg/dL (Abnormal) Range: 65-99 :03 CALCIFEDIOL (37309) Comments: today; PATIENT NOT FASTINGPERFORMED BY: GetIntent70 Basho TechnologiesAt[facility] Health [facility] [id number] Vitamin D, 25-Hydroxy 51.0 ng/mL (Normal) Range: 30.0-100.0 Comments: Vitamin D deficiency has been defined by the [place] ofMedicine and an Endocrine Society practice guideline as alevel of serum 25-OH vitamin D less than 20 ng/mL (1,2).The Endocrine Society went on to further define vitamin Dinsufficiency as a level between 21 and 29 ng/mL (2).1. IOM ([place] of Medicine). 2010. Dietary reference intakes for calcium and D. [place]: The National Academies Press.2. Clifton MF, Robbi NC, Ladarius GONZALES, et al. Evaluation, treatment, and prevention of vitamin D deficiency: an Endocrine Society clinical practice guideline. JCEM. 2010; 96(7):1911-30. :03 VITAMIN B12 AND FOLATES Comments: today; PATIENT NOT FASTINGPERFORMED BY: Get[employer]70 Basho TechnologiesAtrium [facility] [id number] (58679) Folate (Folic Acid), Serum 10.2 ng/mL (Normal) Comments: A serum folate concentration of less than 3.1 ng/mL isconsidered to represent clinical deficiency. Vitamin B12 1184 pg/mL (Abnormal) Range: 211-946 :03 MAGNESIUM (82920) Comments: today; PATIENT NOT FASTINGPERFORMED BY: [facility]6370 Basho Technologiesin [place] [id number] Magnesium, Serum 2.1 mg/dL (Normal) Range: 1.6-2.3 2-Gbm-274247:09 T4, FREE (THYROXINE) (94013) Comments: PATIENT NOT FASTINGPERFORMED BY: [facility]6370 [facility] [id number] T4,Free(Direct) 1.03 ng/dL (Normal) Range: 0.82-1.77 4-Scz-910881:09 T3, FREE (TRIDOTHYRONINE) (24448) Comments: PATIENT NOT FASTINGPERFORMED BY: Lab[facility]6370 [facility] [id number] Triiodothyronine,Free,Serum 3.7 pg/mL (Normal) Range: 2.0-4.4 0-Wgv-525091:09 TSH (THYROID STIMULATING Comments: PATIENT NOT FASTINGPERFORMED BY: [facility]Core[facility]6370 [facility] [id number] HORMONE) (27045) TSH 0.464 {uIU/mL} (Normal) Range: 0.450-4.500 16-Jei-508988:47 CBC, Platelets & Auto Diff Comments: PATIENT NOT FASTINGPERFORMED BY: [facility]Corewell [facility] Hospital6370 [facility] [id number] (38804) Immature Grans (Abs) 0.0 {x10E3/uL} (Normal) Range: [...] Range: 3.4-10.8 :47 CPK TOTAL & ISOENZYMES (98790) Comments: PATIENT NOT FASTINGPERFORMED BY: [email or web address] DBA eGifterSaint Peter's University HospitalOprxxv8823 [facility] [id number] CK-BB 0 % (Normal) CK-MB 0 % (Normal) Range: 0-3 Macro Type 1 0 % (Normal) CK-MM 100 % (Normal) Range: 97-100 Macro Type 2 0 % (Normal) Creatine Kinase,Total,Serum 182 U/L (Normal) Range: 24-204 :47 CALCIFEDIOL (61309) Comments: PATIENT NOT FASTINGPERFORMED BY: GroupGifting.[employer] DBA eGifterSaint Peter's University HospitalSjktjw0741 [facility] [id number] Vitamin D, 25-Hydroxy 45.7 ng/mL (Normal) Range: 30.0-100.0 Comments: Vitamin D deficiency has been defined by the [place] ofMary Rutan Hospitalcine and an Endocrine Society practice guideline as alevel of serum 25-OH vitamin D less than 20 ng/mL (1,2).The Endocrine Society went on to further define vitamin Dinsufficiency as a level between 21 and 29 ng/mL (2).1. IOM ([place] of Medicine). 2010. Dietary reference intakes for calcium and D. [place]: The National Academies Press.2. Clifton MF, Robbi MADRID, Ladarius GONZALES, et al. Evaluation, treatment, and prevention of vitamin D deficiency: an Endocrine Society clinical practice guideline. JCEM. 2010; 96(7):1911-30. :47 TSH (THYROID STIMULATING Comments: PATIENT NOT FASTINGPERFORMED BY: [facility] Pjnsgn8142 [facility] [id number] HORMONE) (82491) TSH 0.367 {uIU/mL} (Abnormal) Range: 0.450-4.500 22-Tdg-772181:42 PSA (Medicare - G0103) Comments: today; PATIENT NOT FASTINGPERFORMED BY: CB [facility] Aogafi9596 [facility] [id number]; OV 01/25/17 (38875) Prostate Specific Ag, 0.6 ng/mL (Normal) Range: 0.0-4.0 Serum Comments: Digital LuxuryIA methodology. .According to the [place] U[employer] Association, Serum PSA shoulddecrease and remain at undetectable levels after radicalprostatectomy. The AUA defines biochemical recurrence as an initialPSA value 0.2 ng/mL or greater followed by a subsequent confirmatoryPSA value 0.2 ng/mL or greater.Values obtained with d ifferent assay methods or kits cannot be usedinterchangeably. Results cannot be interpreted as absolute evidenceof the presence or absence of malignant disease. 35-Lrw-360544:10 CBC, Platelets & Auto Diff Comments: PATIENT WAS FASTINGPERFORMED BY: [employer] Prsydw3365 [facility] [id number] (16302) Immature Grans (Abs) 0.0 {x10E3/uL} (Normal) Range: [...] 4.14-5.80 WBC 7.2 {x10E3/uL} (Normal) Range: 3.4-10.8 97-Gkp-387228:10 TSH (34850) Comments: PATIENT WAS FASTINGPERFORMED BY: [email or web address] DBA eGifter Lvdrcj7419 [facility] [id number] TSH 0.537 {uIU/mL} (Normal) Range: 0.450-4.500 69-Hkj-571279:10 Metabolic Panel, Comprehensive Comments: PATIENT WAS FASTINGPERFORMED BY: LabCoSaint Peter's University HospitalSajmls8767 [facility] [id number]; ov 01/21 (79830) ALT (SGPT) 16 [iU]/L (Normal) Range: 0-44 [...] Glucose, Serum 83 mg/dL (Normal) Range: 65-99 32-Qzo-255044:10 Lipid Panel (83794) Comments: PATIENT WAS FASTINGPERFORMED BY: GetIntent70 Basho TechnologiesAtrium Health [facility] [id number] LDL/HDL Ratio 2.0 {ratio_units} (Normal) Range: 0.0-3.6 Comments: LDL/HDL Ratio Men Women 1/2 Avg.Risk 1.0 1.5 Av g.Risk 3.6 3.2 2X Avg.Risk 6.2 5.0 3X Avg.Risk 8.0 6.1 LDL Cholesterol Calc 106 mg/dL (Abnormal) Range: 0-99 VLDL Cholesterol Micah 18 mg/dL (Normal) Range: 5-40 HDL Cholesterol 52 mg/dL (Normal) Triglycerides 88 mg/dL (Normal) Range: 0-149 Cholesterol, Total 176 mg/dL (Normal) Range: 100-199 04-Yla-048114:10 CALCIFEDIOL (09070) Comments: PATIENT WAS FASTINGPERFORMED BY: [facility]6370 Basho TechnologiesAtrium Health [facility] [id number] Vitamin D, 25-Hydroxy 42.8 ng/mL (Normal) Range: 30.0-100.0 Comments: Vitamin D deficiency has been defined by the [place] ofMedicine and an Endocrine Society practice guideline as alevel of serum 25-OH vitamin D less than 20 ng/mL (1,2).The Endocrine Society went on to further define vitamin Dinsufficiency as a level between 21 and 29 ng/mL (2).1. IOM ([place] of Medicine). 2010. Dietary reference intakes for calcium and D. [place]: The National Academies Press.2. Clifton MF, Robbi MADRID, Ladarius GONZALES, et al. Evaluation, treatment, and prevention of vitamin D deficiency: an Endocrine Society clinical practice guideline. JCEM. 2010; 96(7):1911-30. :50 Basic Metabolic Profile (BMP) Comments: 'TROP' Serial specimen #1, #2, #3, or #4: [address] [place] [address] L[address]qknqudm[address] [place], [address] GAP 3 (Abnormal) Range: 5-15 CO2 26.0 [...] A.D.A. criteria. :50 CBC W/Diff, Automated Comments: [facility] [address] [place], [address] ; another doc Absolute Lymph [...] Serial specimen #1, #2, #3, or #4: [facility] Waujrdtryd[address] [place], [address] TROPONIN-I < 0.02 ng/mL (Normal) Comments: TROPONIN-I EXPECTED VALUES <0.05 NEGATIVE 0.06 - 0.59 AT RISK OF ID > OR = 0.60 SUGGEST ID :40 TESTOSTERONE FREE (27361) Comments: PATIENT NOT FASTINGPERFORMED BY: [address] [id number] Free Testosterone(Direct) 5.8 pg/mL (Abnormal) Range: 6.6-18.1 45-Ktu-818962:40 TSH (THYROID STIMULATING Comments: PATIENT NOT FASTINGPERFORMED BY: [address] [id number] BY: [address] [id number] HORMONE) (73269) TSH 0.600 {uIU/mL} (Normal) Range: 0.450-4.500 :40 TESTOSTERONE ,TOT/FREE Comments: PATIENT NOT FASTINGPERFORMED BY: OneTouch[address] [id number] BY: [address] [id number] (72370) Free Testosterone(Direct) 5.2 pg/mL (Abnormal) Range: 6.6-18.1 Comment: TESTM (Normal) Comments: Adult male reference interval is based on a population of lean malesup to 40 years old. Testosterone, Serum 275 ng/dL (Abnormal) Range: 348-1197 18-Vkb-714607:40 PT (PROTHROMBIN TIME) Comments: PATIENT NOT FASTINGPERFORMED BY: [address] [id number] BY: [address] [id number] (91455) Prothrombin Time 10.4 {sec} (Normal) Range: 9.1-12.0 INR 1.0 (Normal) Range: 0.8-1.2 Comments: Reference interval is for non-anticoagulated patients. . Suggested INR therapeutic range for Vitamin K anta gonist therapy: Standard Dose (moderate intensity therapeutic range): 2.0 - 3.0 Higher intensity therapeutic range 2.5 - 3.5 77-Rwa-922301:40 CBC, PLATELETS & AUT DIFF Comments: PATIENT NOT FASTINGPERFORMED BY: [email or web address] DBA eGifterJohn Ville 2531170 [facility] [id number] BY: OneTouch[address] [id number] (93613) Immature Grans (Abs) 0.0 {x10E3/uL} (Normal) Range: [...] 4.14-5.80 WBC 7.8 {x10E3/uL} (Normal) Range: 3.4-10.8 13-Gho-726217:40 Metabolic Panel, Basic Comments: PATIENT NOT FASTINGPERFORMED BY: [email or web address] DBA eGifterSaint Peter's University HospitalHchosu0318 [facility] [id number] BY: OneTouch[address] [id number] (60632) Calcium, Serum 8.9 mg/dL (Normal) Range: 8.6-10.2 [...] Metabolic Panel, Comments: PATIENT NOT FASTINGPERFORMED BY: LabCoSaint Peter's University HospitalJrtxpk0890 [facility] [id number] Information: [id number] Comprehensive (05626) ALT (SGPT) 11 [iU]/L (Normal) Range: 0-44 [...] (THYROID STIMULATING Comments: PATIENT NOT FASTINGPERFORMED BY: MedAware SystemsAtrium Health [facility] [id number] HORMONE) (43004) TSH 0.483 {uIU/mL} (Normal) Range: 0.450-4.500 :46 MAGNESIUM (33335) Comments: PATIENT NOT FASTINGPERFORMED BY: GeoOpticsECU Health Medical Center [id number] Magnesium, Serum 1.9 mg/dL (Normal) Range: 1.6-2.3 :53 MICROALBUMIN: CREATININE RATIO Comments: PATIENT NOT FASTINGPERFORMED BY: GeoOpticsECU Health Medical Center [id number] (28941) AND (42184) Microalb/Creat Ratio 3.2 {mg/g_creat} (Normal) Range: 0.0-30.0 Microalbumin, Urine 4.2 ug/mL (Normal) Range: 0.0-17.0 Creatinine, Urine 130.8 mg/dL (Normal) Range: 22.0-328.0 :53 URINALYSIS (24811) Comments: PATIENT NOT FASTINGPERFORMED BY: Surfkitchen Pirate PayPemiscot Memorial Health Systems [id number] Information: [id number] Microscopic Examination MICNIP (Normal) Comments: Microscopic not indicated and not performed. Nitrite, Urine Negative (Normal) Urobilinogen,Semi-Qn 1.0 mg/dL (Normal) Range: 0.2-1.0 Bilirubin Negative (Normal) Occult Blood Negative (Normal) Ketones Negative (Normal) Glucose Negative (Normal) Protein Negative (Normal) WBC Esterase Negative (Normal) Appearance Clear (Normal) Urine-Color Yellow (Normal) pH 7.0 (Normal) Range: 5.0-7.5 Specific [place] 1.027 (Normal) Range: 1.005-1.030 :56 PSA (PROSTATE SPECIFIC Comments: PATIENT WAS FASTINGPERFORMED BY: [facility]6370 [facility] [id number] ANTIGEN) (V76.44) Prostate Specific Ag, 0.6 ng/mL (Normal) Range: 0.0-4.0 Serum Comments: Digital LuxuryIA methodology. .According to the [employer] Urological Association, Serum PSA shoulddecrease and remain [...] PANEL, COMPREHENSIVE Comments: PATIENT WAS FASTINGPERFORMED BY: [facility]6370 [facility] [id number] (46118) ALT (SGPT) 12 [iU]/L (Normal) Range: 0-44 [...] mg/dL (Abnormal) Range: 65-99 :56 LIPID PANEL (70057) Comments: PATIENT WAS FASTINGPERFORMED BY: MedAware SystemsAtrium Health [facility] [id number] LDL/HDL Ratio 2.4 {ratio_units} (Normal) Range: 0.0-3.6 [...] auto diff Comments: PATIENT WAS FASTINGPERFORMED BY: [facility]6370 [facility] [id number] Information: [id number] (17927) Immature Grans (Abs) 0.0 {x10E3/uL} (Normal) Range: [...] 7.3 {x10E3/uL} (Normal) Range: 3.4-10.8 01-Dec-20158:56 CALCIFIDIOL (75443) VIT D 25 Comments: PATIENT WAS FASTINGPERFORMED BY: LabCoSaint Peter's University HospitalEldavy9447 [facility] [id number] Vitamin D, 25-Hydroxy 45.0 ng/mL (Normal) Range: 30.0-100.0 Comments: Vitamin D deficiency has been defined by the [place] ofMedicine and an Endocrine Society practice guideline as alevel of serum 25-OH vitamin D less than 20 ng/mL (1,2).The Endocrine Society went on to further define vitamin Dinsufficiency as a level between 21 and 29 ng/mL (2).1. IOM ([place] of Medicine). 2010. Dietary reference intakes for calcium and D. [place]: The National Academies Press.2. Clifton MF, Robbi NC, Ladarius GONZALES, et al. Evaluation, treatment, and prevention of vitamin D deficiency: an Endocrine Society clinical practice guideline. JCEM. 2010; 96(7):1911-30. :20 HgA1C , Office (01375) HgA1C , Office 5.9 % (Normal) Range: 4.6 - 7.1 :36 Vitamin B-12 (cyanocobalamin) Comments: PATIENT NOT FASTINGPERFORMED BY: [facility] Xyjeeo3204 Perry RoadDublin [place] [id number] (74097) Vitamin B12 1444 pg/mL (Abnormal) Range: 211-946 :36 CALCIFIDIOL (86286) VIT D 25 Comments: PATIENT NOT FASTINGPERFORMED BY: CB [facility] Xclclm8633 Perry RoadDublin [place] [id number] Vitamin D, 25-Hydroxy 32.0 ng/mL (Normal) Range: 30.0-100.0 Comments: Vitamin D deficiency has been defined by the [place] ofMary Rut[facility] Hospitalcine and an Endocrine Society practice guideline as alevel of serum 25-OH vitamin D less than 20 ng/mL (1,2).The Endocrine Society went on to further define vitamin Dinsufficiency as a level between 21 and 29 ng/mL (2).1. IOM ([place] of Medicine). 2010. Dietary reference intakes for calcium and D. [place]: The National Academies Press.2. Clifton MF, Robbi NC, Ladarius GONZALES, et al. Evaluation, treatment, and prevention of vitamin D deficiency: an Endocrine Society clinical practice guideline. JCEM. 2010; 96(7):1911-30. :36 TSH (90888) Comments: PATIENT NOT FASTINGPERFORMED BY: CB [facility] Iahsuy4553 [address]ery[address] RoadDublin [place] [id number] Information: [id number] TSH 0.575 {uIU/mL} (Normal) Range: 0.450-4.500 :51 CBC With Differential/Platelet Comments: PATIENT WAS FASTINGPERFORMED BY: CB [facility] Zzcass5732 Perry RoadDublin [place] [id number] Information: [id number] Immature Grans (Abs) 0.0 {x10E3/uL} (Normal) Range: [...] 4.14-5.80 WBC 7.3 {x10E3/uL} (Normal) Range: 3.4-10.8 0-Blx-774752:51 Comp. Metabolic Panel (14) Comments: PATIENT WAS FASTINGPERFORMED BY: LabCoSaint Peter's University HospitalHearmo6396 [facility] [id number] ALT (SGPT) 15 [iU]/L (Normal) Range: 0-44 [...] With LDL/HDL Comments: PATIENT WAS FASTINGPERFORMED BY: MedAware SystemsAtrium Health [facility] [id number] Ratio LDL/HDL Ratio 2.1 {ratio_units} Range: 0.0-3.6 [...] pg/mL (Normal) Comments: PATIENT WAS FASTINGPERFORMED BY: GetIntent70 [facility] [id number] 1:51 Range: 211-946 Vitamin D, 25-Hydroxy 40.7 ng/mL (Normal) Comments: PATIENT WAS FASTINGPERFORMED BY: OneTouchMercy [facility]cc[facility] Otcelk3731 [facility] [id number] 1:51 Range: 30.0-100.0 Comments: Vitamin D deficiency has been defined by the [place] ofMedicine and an Endocrine Society practice guideline as alevel of serum 25-OH vitamin D less than 20 ng/mL (1,2).The Endocrine Society went on to further define vitamin Dinsufficiency as a level between 21 and 29 ng/mL (2).1. IOM ([place] of Medicine). 2010. Dietary reference intakes for calcium and D. [place]: The National Academies Press.2. Robbi Morales, Ladarius GONZALES, et al. Evaluation, treatment, and prevention of vitamin D deficiency: an Endocrine Society clinical practice guideline. JCEM. 2010; 96(7):1911-30. 09-Tlw-931434:22 CALCIFIDIOL (26378) VIT D Comments: PATIENT NOT FASTINGPERFORMED BY: [facility]TouchMercy [facility] Mshhvl8826 [facility] [id number] Information: [id number] 25 Vitamin D, 25-Hydroxy 31.8 ng/mL (Normal) Range: 30.0-100.0 Comments: Vitamin D deficiency has been defined by the [place] ofMedicine and an Endocrine Society practice guideline as alevel of serum 25-OH vitamin D less than 20 ng/mL (1,2).The Endocrine Society went on to further define vitamin Dinsufficiency as a level between 21 and 29 ng/mL (2).1. IOM ([place] of Medicine). 2010. Dietary reference intakes for calcium and D. [place]u [place]: The National Academies Press.2. Robbi Morales, Ladarius GONZALES, et al. Evaluation, treatment, and prevention of vitamin D deficiency: an Endocrine Society clinical practice guideline. JCEM. 2010; 96(7):1911-30. One Specimen SPRCS (Normal) Comments: PATIENT NOT FASTINGPERFORMED BY: [facility] Centerton1447 [facility] [id number] BY: [facility]6370 [facility] [id number] 1:25 Identifier Comments: The specimen received included only one patient identifier on theprimary collection container. Our laboratory accrediting agencystates All primary specimen containers must be labeled with 2identifiers at the time of collection. 97-Cmj-315412:25 THIAMINE (B-1) (66065) Comments: PATIENT NOT FASTINGPERFORMED BY: [email or web address] DBA eGifterChrist HospitalQhkuhqqxuc2024 [facility] [id number] BY: OneTouchCorewell Health [facility] Hospital6370 [facility] [id number] Vit. B1, Whole Blood 159.7 nmol/L (Normal) Range: 66.5-200.0 35-Bgp-304288:08 CBC (Auto) (59184) Comments: PATIENT WAS FASTINGPERFORMED BY: [facility]6370 [facility] [id number] Information: [id number] Platelets 202 {x10E3/uL} (Normal) Range: 150-379 RDW 12.6 % (Normal) Range: 12.3-15.4 MCHC 34.3 g/dL (Normal) Range: 31.5-35.7 MCH 31.3 pg (Normal) Range: 26.6-33.0 MCV 91 fL (Normal) Range: 79-97 Hematocrit 44.0 % (Normal) Range: 37.5-51.0 Hemoglobin 15.1 g/dL (Normal) Range: 12.6-17.7 RBC 4.83 {x10E6/uL} (Normal) Range: 4.14-5.80 WBC 8.2 {x10E3/uL} (Normal) Range: 3.4-10.8 65-Gfu-193573:08 PTT (Activated Partial Comments: PATIENT WAS FASTINGPERFORMED BY: [facility]6370 [facility] [id number] Thromboplastin Time) (96735) aPTT 31 {sec} (Normal) Range: 24-33 Comments: This test has not been validated for monitoring unfractionated heparintherapy. aPTT-based therapeutic ranges for unfractionated heparintherapy have not been established. For general guidelines onHeparin monitoring, refer to the [facility] Directory of Services. :08 PT (Prothrobim Time) (61981) Comments: PATIENT WAS FASTINGPERFORMED BY: SATHISH [facility]6370 [facility] [id number] Prothrombin Time 10.4 {sec} (Normal) Range: 9.1-12.0 INR 1.0 (Normal) Range: 0.8-1.2 Comments: Reference interval is for non-anticoagulated patients. . Suggested INR therapeutic range for Vitamin K anta gonist therapy: Standard Dose (moderate intensity therapeutic range): 2.0 - 3.0 Higher intensity therapeutic range 2.5 - 3.5 :09 CALCIFIDIOL (97217) VIT D 25 Comments: PATIENT WAS FASTINGPERFORMED BY: SATHISH [facility]6370 [facility] [id number] Vitamin D, 25-Hydroxy 15.8 ng/mL (Abnormal) Range: 30.0-100.0 Comments: Vitamin D deficiency has been defined by the [place] ofMedicine and an Endocrine Society practice guideline as alevel of serum 25-OH vitamin D less than 20 ng/mL (1,2).The Endocrine Society went on to further define vitamin Dinsufficiency as a level between 21 and 29 ng/mL (2).1. IOM ([place] of Medicine). 2010. Dietary reference intakes for calcium and D. [place]u [place]: The National Academies Press.2. Clifton MF, Robbi NC, Ladarius GONZALES, et al. Evaluation, treatment, and prevention of vitamin D deficiency: an Endocrine Society clinical practice guideline. JCEM. 2010; 96(7):1911-30. :09 Vitamin B-12 (cyanocobalamin) Comments: PATIENT WAS FASTINGPERFORMED BY: [facility]6370 [facility] [id number] (09747) Vitamin B12 399 pg/mL (Normal) Range: 211-946 07-Str-040007:09 METABOLIC PANEL, Comments: PATIENT WAS FASTINGPERFORMED BY: SATHISH [employer] Metricslin6370 [facility] [id number] Information: [id number],2ND ORDER COMPREHENSIVE (72819) ALT (SGPT) 15 [iU]/L (Normal) Range: 0-44 [...] Glucose, Serum 86 mg/dL (Normal) Range: 65-99 82-Ynw-102957:09 LIPID PANEL (46094) Comments: PATIENT WAS FASTINGPERFORMED BY: [email or web address] DBA eGifterSaint Peter's University HospitalLwsfnq6281 [facility] [id number] LDL/HDL Ratio 2.0 {ratio_units} (Normal) Range: 0.0-3.6 [...] Cholesterol, Total 132 mg/dL (Normal) Range: 100-199 5-Phx-405270:05 Microscopic Examination Comments: PATIENT NOT FASTINGPERFORMED BY: [email or web address] DBA eGifterSaint Peter's University HospitalKofwaz1111 [facility] [id number] Bacteria Few (Normal) Mucus Threads Present (Normal) Epithelial Cells (non renal) 0-10 {/hpf} (Normal) Range: 0 - 10 RBC 0-2 {/hpf} (Normal) Range: 0 - 2 WBC 6-10 {/hpf} (Abnormal) Range: 0 - 5 3-Yrb-398658:05 URINALYSIS (92771) Comments: PATIENT NOT FASTINGPERFORMED BY: [email or web address] DBA eGifterSaint Peter's University HospitalLzwdhk4153 [facility] [id number] Information: [id number] Microscopic Examination See below: (Normal) Comments: Microscopic was indicated and was performed. Nitrite, Urine Negative (Normal) Urobilinogen,Semi-Qn 1.0 mg/dL (Normal) Range: 0.0-1.9 Bilirubin Negative (Normal) Occult Blood Negative (Normal) Ketones Negative (Normal) Glucose Negative (Normal) Protein Negative (Normal) WBC Esterase Trace (Abnormal) Appearance Clear (Normal) Urine-Color Yellow (Normal) pH 6.0 (Normal) Range: 5.0-7.5 Specific [place] 1.023 (Normal) Range: 1.005-1.030 :12 PSA (PROSTATE SPECIFIC Comments: PATIENT NOT FASTINGPERFORMED BY: OneTouchLinda Ville 5390170 [facility] [id number] Information: [id number] ANTIGEN) (V76.44) Prostate Specific Ag, 0.5 ng/mL (Normal) Range: 0.0-4.0 Serum Comments: Mónica ECLIA methodology. .According to the [employer] U[employer] Association, Serum PSA shoulddecrease and remain at undetectable levels after radicalprostatectomy. The AUA defines biochemical recurrence as an initialPSA value 0.2 ng/mL or greater followed by a subsequent confirmatoryPSA value 0.2 ng/mL or greater.Values obtained with d ifferent assay methods or kits cannot be usedinterchangeably. Results cannot be interpreted as absolute evidenceof the presence or absence of malignant disease. 69-Wnz-578867:16 HgA1C , Office (00210) HgA1C , Office 5.7 % (Normal) Range: 4.6 - 7.1 15-Tgb-443326:31 Ethanol, Blood Comments: PATIENT WAS FASTINGPERFORMED BY: [email or web address] DBA eGifter[address] [id number] BY: [place] 9044370 [facility] [id number] Inf ormation: [id number] Ethanol 0.094 % (Normal) Comments: Verified by repeat analysis Written Authorization WAR (Normal) Comments: PATIENT WAS FASTINGPERFORMED BY: [email or web address] DBA eGifter[address] [id number] BY: [place] 9044370 [facility] [id number] :31 Comments: Written Authorization Received.Authorization received from PER ORIGINAL ORDER [id number] by Avelina Glez 29-Ujb-066385:37 PTT (Activated Partial Comments: PATIENT WAS FASTINGPERFORMED BY: OneTouch[address] [id number] BY: [address] [id number] Thromboplastin Time) (00851) aPTT 31 {sec} (Normal) Range: 24-33 Comments: This test has not been validated for monitoring unfractionated heparintherapy. aPTT-based therapeutic ranges for unfractionated heparintherapy have not been established. For general guidelines onHeparin monitoring, refer to the [facility] Directory of Services. 15-Hrm-996562:37 PT (Prothrobim Time) Comments: PATIENT WAS FASTINGPERFORMED BY: LabCoSaint Peter's University HospitalFunqve4144 [facility] [id number] BY: [address] [id number] (06170) Prothrombin Time 10.9 {sec} (Normal) Range: 9.1-12.0 INR 1.0 (Normal) Range: 0.8-1.2 Comments: Reference interval is for non-anticoagulated patients. . Suggested INR therapeutic range for Vitamin K anta gonist therapy: Standard Dose (moderate intensity therapeutic range): 2.0 - 3.0 Higher intensity therapeutic range 2.5 - 3.5 4-Nkr-011382:37 DRUG SCREEN (50651) Comments: PATIENT NOT FASTINGPERFORMED BY: [facility]CoMc[facility] GVO[address] [facility] [id number] Information: [id number] CCU:[id number] LM Ethanol U, Rich Negative % (Normal) Phencyclidine Negative ng/mL (Normal) Opiates Negative ng/mL (Normal) Comments: Opiate test includes Codeine and Morphine only. Cannabinoid Negative ng/mL (Normal) Cocaine (Metab.) Negative ng/mL (Normal) Benzodiazepines Negative ng/mL (Normal) Barbiturate Negative ng/mL (Normal) Amphetamines, Urine Negative ng/mL (Normal) Comments: Amphetamine test includes Amphetamine and Methamphetamine. :37 T4, FREE (THYROXINE) Comments: PATIENT WAS FASTINGPERFORMED BY: LabCoSaint Peter's University HospitalQthqkd7031 [facility] [id number] BY: Lab[address] [id number] (12682) T4,Free(Direct) 1.14 ng/dL (Normal) Range: 0.82-1.77 :38 HgA1C , Office (13236) HgA1C , Office 5.3 % (Normal) Range: 4.6 - 7.1 :38 Blood Glucose , Office (01656) Blood Glucose , Office 87 (Normal) 92-Gsy-552039:38 HgA1C , Office (77537) HgA1C , Office 5.3 % (Normal) Range: 4.6 - 7.1 72-Sgn-636442:37 RHEUMATOID FACTOR-QUANT Comments: PATIENT WAS FASTINGPERFORMED BY: Group[employer] DBA eGifterDzilth-Na-O-Dith-Hle Health CenterFwukbp6339 [facility] [id number] BY: [address] [id number] (69235) RA Latex Turbid. 9.9 {IU/mL} (Normal) Range: 0.0-13.9 23-Yqs-751040:37 CCP ANTIBODY (77611) Comments: PATIENT WAS FASTINGPERFORMED BY: [employer] DBA eGifterJohn [place] 2531170 [facility] [id number] BY: [address] [id number] CCP Antibodies IgG/IgA 9 {units} (Normal) Range: 0-19 Comments: Negative <20 Weak positive 20 - 39 Moderate positive 40 - 59 Strong positive >59 98-Gls-046062:37 ALISON (ANTINUCLEAR ANTIBODY) Comments: PATIENT WAS FASTINGPERFORMED BY: [employer] eGifter Izzjnh7222 [facility] [id number] BY: [address] [id number] (82169) ALISON Direct Negative (Normal) 31-Dvj-984378:37 Creatine Kinase Total Comments: PATIENT WAS FASTINGPERFORMED BY: [employer] DBA eGifterJohn [place] 2531170 [facility] [id number] BY: [address] [id number] (68625) Creatine Kinase,Total,Serum 199 U/L (Normal) Range: 24-204 28-Njf-539420:37 C-Reactive Protein Comments: PATIENT WAS FASTINGPERFORMED BY: [employer] D[employer] eGifter Fastzu0991 [facility] [id number] BY: [address] [id number] (09705) C-Reactive Protein, Quant 0.9 mg/L (Normal) Range: 0.0-4.9 :37 Methymalonic Acid, Serum Comments: PATIENT WAS FASTINGPERFORMED BY: [facility] Yjlxiw5359 [address] Roadblin [place] [id number] BY: [address] [id number] (92698) Methylmalonic Acid, Serum 110 nmol/L (Normal) Range: 0-378 Comments: Please note reference interval change :37 Vitamin B-12 Comments: PATIENT WAS FASTINGPERFORMED BY: [facility] Dixnqd7926 Perry RoadDublin [place] [id number] BY: [address] [id number] (cyanocobalamin) (17550) Vitamin B12 293 pg/mL (Normal) Range: 211-946 :37 CALCIFIDIOL (76004) VIT D Comments: PATIENT WAS FASTINGPERFORMED BY: [facility] Hnrxge1758 Perry RoadDublin [place] [id number] BY: [address] [id number] 25 Vitamin D, 25-Hydroxy 12.6 ng/mL (Abnormal) Range: 30.0-100.0 Comments: Vitamin D deficiency has been defined by the [place] of[place]icine and an Endocrine Society practice guideline as alevel of serum 25-OH vitamin D less than 20 ng/mL (1,2).The Endocrine Society went on to further define vitamin Dinsufficiency as a level between 21 and 29 ng/mL (2).1. IOM ([place] of Medicine). 2010. Dietary reference intakes for calcium and D. [place]: The National Academies Press.2. Clifton MF, Robbi NC, Ladarius GONZALES, et al. Evaluation, treatment, and prevention of vitamin D deficiency: an Endocrine Society clinical practice guideline. JCEM. 2010; 96(7):1911-30. :37 CBC with manual diff Comments: PATIENT WAS FASTINGPERFORMED BY: CB [facility] Bowvch5269 Perry RoadDublin [place] [id number] BY: [employer] DBA eGifter[address] [id number] Inf ormation: [id number] (76650) Immature Grans (Abs) 0.0 {x10E3/uL} (Normal) Range: [...] 4.14-5.80 WBC 6.0 {x10E3/uL} (Normal) Range: 3.4-10.8 47-Azl-144806:37 HEPATIC FUNCTION PANEL Comments: PATIENT WAS FASTINGPERFORMED BY: LabCoSaint Peter's University HospitalOlgfwo0252 [facility] [id number] BY: [employer] DBA eGifter[address] [id number] (81022) Bilirubin, Direct 0.55 mg/dL (Abnormal) Range: 0.00-0.40 33-Ucv-339250:37 TSH (THYROID STIMULATING Comments: PATIENT WAS FASTINGPERFORMED BY: [employer] DBA eGifter[address] [id number] BY: [address] [id number] HORMONE) (23943) TSH 0.551 {uIU/mL} (Normal) Range: 0.450-4.500 20-Nii-018882:37 Lipid Panel (14999) Comments: PATIENT WAS FASTINGPERFORMED BY: [employer] DBA eGifter[address] [id number] BY: [address] [id number] LDL/HDL Ratio 0.8 {ratio_units} (Normal) Range: 0.0-3.6 LDL Cholesterol Calc 99 mg/dL (Normal) Range: 0-99 VLDL Cholesterol Micah 15 mg/dL (Normal) Range: 5-40 HDL Cholesterol 127 mg/dL (Normal) Comments: Results confirmed ondilution.According to ATP-III Guidelines, HDL-C >59 mg/dL is considered anegative risk factor for CHD. Triglycerides 77 mg/dL (Normal) Range: 0-149 Cholesterol, Total 241 mg/dL (Abnormal) Range: 100-199 11-Zel-611920:37 Metabolic Panel, Comments: PATIENT WAS FASTINGPERFORMED BY: [employer] DBA eGifter[address] [id number] BY: OneTouch[address] [id number] Comprehensive (00841) ALT (SGPT) 61 [iU]/L (Abnormal) Range: 0-44 [...] Glucose, Serum 90 mg/dL (Normal) Range: 65-99 45-Rdi-579245:33 Ethanol, Blood Comments: PATIENT NOT FASTINGPERFORMED BY: Surfkitchen Krhaun[address] [place] [address] [id number] BY: OneTouchDaniel Ville [id number] Ethanol 0.085 % (Normal) Comments: Verified by repeat analysis 08-Wsf-593452:33 Magnesium (17948) Comments: PATIENT NOT FASTINGPERFORMED BY: Surfkitchen[address] [id number] BY: [address] [id number] Magnesium, Serum 1.6 mg/dL (Normal) Range: 1.6-2.6 31-Ulx-186787:33 Methymalonic Acid, Serum Comments: PATIENT NOT FASTINGPERFORMED BY: SurfkitchenSaint Peter's University HospitalNztefa918[address] [place] [address] [id number] BY: [address] [id number] (26644) Methylmalonic Acid, Serum 78 nmol/L (Normal) Range: 73-376 Comments: The reference range for methylmalonic acid has been set at +3sd abovethe mean for healthy blood bank donors. In the clinical assessment ofpatients with megaloblastic anemias a cutoff of +3sd provides gr eaterspecificity in the diagnosis of the vitamin deficiency states,despite the sacrifice of some sensitivity. 57-Lgi-812098:33 Vitamin B-12 Comments: PATIENT NOT FASTINGPERFORMED BY: Surfkitchen Svdiqj0282 [facility] [id number] BY: OneTouch[address] [id number] (cyanocobalamin) (59302) Vitamin B12 449 pg/mL (Normal) Range: 211-946 27-Drk-442956:33 TSH (97065) Comments: PATIENT NOT FASTINGPERFORMED BY: Online[employer] LabCubeacon Nvyxlx9899 [facility] [id number] BY: [employer] DBA eGifter[address] [id number] TSH 0.654 {uIU/mL} (Normal) Range: 0.450-4.500 74-Iuz-723632:33 METABOLIC PANEL, Comments: PATIENT NOT FASTINGPERFORMED BY: SurfkitchenJohn V[place] 2531170 [facility] [id number] BY: OneTouch[address] [id number] Inf ormation: [id number] COMPREHENSIVE (74725) ALT (SGPT) 88 [iU]/L (Abnormal) Range: 0-44 [...] Range: 65-99 :49 Blood Glucose , Office (58856) Blood Glucose , Office 90 (Normal) :49 HgA1C , Office (90484) HgA1C , Office 5.3 % (Normal) Range: 4.6 - 7.1 :07 MAGNESIUM (53685) Comments: PATIENT NOT FASTINGPERFORMED BY: myContactCardlin6370 [facility] [id number] Magnesium, Serum 1.3 mg/dL (Abnormal) Range: 1.6-2.6 59-Vsb-302605:07 PSA (PROSTATE SPECIFIC Comments: PATIENT NOT FASTINGPERFORMED BY: E.M.A.R.C. Jktxsg0214 [facility] [id number] ANTIGEN) (26055) Prostate Specific Ag, 0.8 ng/mL (Normal) Range: 0.0-4.0 Serum Comments: Mónica ECLIA methodology. .According to the [place] [employer], Serum PSA shoulddecrease and remain at undetectable levels after radicalprostatectomy. The AUA defines biochemical recurrence as an initialPSA value 0.2 ng/mL or greater followed by a subsequent confirmatoryPSA value 0.2 ng/mL or greater.Values obtained with d ifferent assay methods or kits cannot be usedinterchangeably. Results cannot be interpreted as absolute evidenceof the presence or absence of malignant disease. 20-Eaj-212231:07 Metabolic Panel, Comments: PATIENT NOT FASTINGPERFORMED BY: SATHISH [facility] Ebssxt9198 [place] [id number] Information: ADD [id number] AND DRAW FEE 99 4460 Comprehensive (74717) ALT (SGPT) 74 [iU]/L (Abnormal) Range: 0-44 [...] Glucose, Serum 98 mg/dL (Normal) Range: 65-99 13-Nlw-44130:00 Urinalysis, Office (24489) UA - BILIRUBIN Negative (Normal) UA - BLOOD Non Hemolyzed Trace (Normal) UA - GLUCOSE Negative (Normal) UA - KETONES Negative mg/dL (Normal) UA - LEUKOCYTE ESTERASE Negative (Normal) UA - NITRITE Negative (Normal) UA - PH 7.0 (Normal) UA - PROTEIN Negative mg/dL (Normal) UA - SPECIFIC GRAVITY 1.015 (Normal) URINE UROBILINGN RICH TIMED Normal mg/dL (Normal) 53-Rts-622749:32 Potassium Serum (82625) Comments: PATIENT NOT FASTINGPERFORMED BY: OneTouchLinda V[place] 5390170 [facility] [id number] Information: [id number] Potassium, Serum 4.0 mmol/L (Normal) Range: 3.5-5.2 02-Xhf-353083:32 Magnesium (34037) Comments: PATIENT NOT FASTINGPERFORMED BY: OneTouchLinda [place] 5390170 [facility] [id number] Magnesium, Serum 1.7 mg/dL (Normal) Range: 1.6-2.6 Magnesium, Serum 1.4 mg/dL Comments: PATIENT WAS FASTINGPERFORMED BY: OneTouchLinda [place] 5390170 [facility] [id number] :32 (Abnormal) Range: 1.6-2.6 Written Authorization WAR (Normal) Comments: PATIENT WAS FASTINGPERFORMED BY: OneTouchLinda [place] 5390170 [facility] [id number] :32 Comments: Written Authorization Received.Authorization received from JEWELL HADLEY [id number] by Kenisha Lozano :32 Metabolic Panel, Basic Comments: PATIENT WAS FASTINGPERFORMED BY: LabLinda Ville 5390170 [facility] [id number] BY: [place] 805237 [facility] [id number] (77854) Calcium, Serum 9.1 mg/dL (Normal) Range: 8.6-10.2 [...] FUNCTION PANEL Comments: PATIENT WAS FASTINGPERFORMED BY: CircuLite [facility] [id number] BY: [employer] DBA eGifter[address] [id number] (82583) ALT (SGPT) 72 [iU]/L (Abnormal) Range: 0-55 AST (SGOT) 88 [iU]/L (Abnormal) Range: 0-40 Alkaline Phosphatase, S 74 [iU]/L (Normal) Range: 25-160 Bilirubin, Direct 0.57 mg/dL (Abnormal) Range: 0.00-0.40 Bilirubin, Total 1.3 mg/dL (Abnormal) Range: 0.0-1.2 Albumin, Serum 4.5 g/dL (Normal) Range: 3.6-4.8 Protein, Total, Serum 7.1 g/dL (Normal) Range: 6.0-8.5 :32 CALCIFIDIOL (84317) VIT D Comments: PATIENT WAS FASTINGPERFORMED BY: myContactCardlin6370 [facility] [id number] BY: [employer] DBA eGifter[address] [id number] 25 Vitamin D, 25-Hydroxy 39.6 ng/mL (Normal) Range: 30.0-100.0 Comments: Vitamin D deficiency has been defined by the [place] of[place]icine and an Endocrine Society practice guideline as alevel of serum 25-OH vitamin D less than 20 ng/mL (1,2).The Endocrine Society went on to further define vitamin Dinsufficiency as a level between 21 and 29 ng/mL (2).1. IOM ([place] of Medicine). 2010. Dietary reference intakes for calcium and D. [place]u [place]: The National Academies Press.2. Clifton MF, Robbi MADRID, Ladarius GONZALES, et al. Evaluation, treatment, and prevention of vitamin D deficiency: an Endocrine Society clinical practice guideline. JCEM. 2010; 96(7):1911-30. :32 Vitamin B-12 (cyanocobalamin) Comments: PATIENT WAS FASTINGPERFORMED BY: LabMer[facility] Ofubep2723 [facility] [id number] BY: [address] [id number] (00041) Vitamin B12 557 pg/mL (Normal) Range: 211-946 :32 TSH (23179) Comments: PATIENT WAS FASTINGPERFORMED BY: [facility]Mer[facility] Qvfbdg3240 [facility] [id number] BY: [address] [id number] TSH 0.507 {uIU/mL} (Normal) Range: 0.450-4.500 :32 T4, FREE (THYROXINE) Comments: PATIENT WAS FASTINGPERFORMED BY: LabCubeacon Omemlq4185 [facility] [id number] BY: [address] [id number] (38776) T4,Free(Direct) 1.07 ng/dL (Normal) Range: 0.82-1.77 :32 T3, FREE (TRIDOTHYRONINE) Comments: PATIENT WAS FASTINGPERFORMED BY: [facility] Iccnbv2365 [facility] [id number] BY: [address] [id number] (70158) Triiodothyronine,Free,Serum 3.4 pg/mL (Normal) Range: 2.0-4.4 :32 Ethanol, Blood Comments: PATIENT WAS FASTINGPERFORMED BY: [facility] Cuqlxb3742 [facility] [id number] BY: ANNA [facility] Nfzktabwom2353 [facility] [id number] Ethanol 0.025 % (Normal) Comments: Verified by repeat analysis 04-Apr-20128:30 THYROID IMAGE [facility] Radiology Report See Note (Normal) Comments: CLINICAL:62-year-old [...] EDTElectronically Signed RB/RB Professional Interpretation Provided By: [facility], , To consult with a radiologist regarding this report, please call our [id number] line @ Dictated on 04/04/12951 by Jeffrey Fatima DOTranscribed on 04/05/122125 by ITS IMPORTSign by Jeffrey Acosta DO on 04/05/122126 Sign by: Jeffrey Fatima DO 18-Xhu-866397:50 TSH (12970) Comments: PATIENT NOT FASTINGPERFORMED BY: LabCoSaint Peter's University HospitalKgervn9595 [facility] [id number] TSH 0.337 {uIU/mL} (Abnormal) Range: 0.450-4.500 :50 T4, FREE (THYROXINE) (63841) Comments: PATIENT NOT FASTINGPERFORMED BY: [facility] Ujduxt5255 [address] [facility] [place] [id number] T4,Free(Direct) 1.14 ng/dL (Normal) Range: 0.82-1.77 :50 T3, FREE (TRIDOTHYRONINE) (84745) Comments: PATIENT NOT FASTINGPERFORMED BY: LabCorewell [facility]6370 [facility] [id number] Triiodothyronine,Free,Serum 3.2 pg/mL (Normal) Range: 2.0-4.4 :50 CALCIFIDIOL (86961) VIT D 25 Comments: PATIENT NOT FASTINGPERFORMED BY: LabCorewell Health [facility] Hospital6370 [facility] [id number] Vitamin D, 25-Hydroxy 57.3 ng/mL (Normal) Range: 30.0-100.0 Comments: Vitamin D deficiency has been defined by the [place] of[place]icine and an Endocrine Society practice guideline as alevel of serum 25-OH vitamin D less than 20 ng/mL (1,2).The Endocrine Society went on to further define vitamin Dinsufficiency as a level between 21 and 29 ng/mL (2).1. IOM ([place] of Medicine). 2010. Dietary reference intakes for calcium and D. [place]u [place]: The National Academies Press.2. Clifton MF, Robbi MADRID, Ladarius GONZALES, et al. Evaluation, treatment, and prevention of vitamin D deficiency: an Endocrine Society clinical practice guideline. JCEM. 2010; 96(7):1911-30. :50 HEPATIC FUNCTION PANEL Comments: PATIENT NOT FASTINGPERFORMED BY: LabMer[facility] Plmrsl5917 [facility] [id number] Information: [id number] (92293) ALT (SGPT) 76 [iU]/L (Abnormal) Range: 0-55 Alkaline Phosphatase, S 77 [iU]/L (Normal) Range: 25-160 AST (SGOT) 88 [iU]/L (Abnormal) Range: 0-40 Bilirubin, Direct 0.52 mg/dL Range: 0.00-0.40 (Abnormal) Bilirubin, Total 1.3 mg/dL (Abnormal) Range: 0.0-1.2 Albumin, Serum 4.7 g/dL (Normal) Range: 3.6-4.8 Protein, Total, Serum 7.2 g/dL (Normal) Range: 6.0-8.5 11-Feb-2012 Vitamin D, 25-Hydroxy 5.2 ng/mL (Abnormal) Comments: PERFORMED BY: [facility]At[facility] [id number] 12:13 Range: 30.0-100.0 Comments: Vitamin D deficiency has been defined by the [place] of[place]icine and an Endocrine Society practice guideline as alevel of serum 25-OH vitamin D less than 20 ng/mL (1,2).The Endocrine Society went on to further define vitamin Dinsufficiency as a level between 21 and 29 ng/mL (2).1. IOM ([place] of Medicine). 2010. Dietary reference intakes for [...] Mitochondrial (M2) <20.0 {Units} Comments: PERFORMED BY: [facility]6370 [facility]EC[facility] [id number] 12:13 Antibody (Normal) Range: 0.0-20.0 Comments: Negative 0.0 - 20.0 Equivocal 20.1 - 24.9 Positive >24.9 . Mitochondrial (M2) Antibodies are found in 90-96% of patients with primary biliary cirrhosis. 11-Feb-2012 Actin (Smooth Muscle) 8 {Units} (Normal) Comments: PERFORMED BY: [facility] SystemsAt[facility] [id number] 12:13 Antibody Range: 0-19 Comments: Negative 0 - 19 Weak positive 20 - 30 Moderate to strong positive >30 . Actin Antibodies are found in 52-85% of patients with autoimmune hepatitis or chronic active hepatitis and in 22% of patients with primary biliary cirrhosis. 11-Feb-2012 Ferritin, Serum 364 ng/mL (Normal) Comments: PERFORMED BY: [employer] DBA eGifterSaint Peter's University HospitalDbpgev3021 [facility] [id number] 12:13 Range: 30-400 00-Wit-159294:13 Antinuclear Antibodies Direct Comments: PERFORMED BY: [employer] D[employer] e[employer]ifter Nvyfpg2732 [facility] [id number] ALISON Direct Negative (Normal) 90-Snt-098227:13 Hepatic Function Panel (7) Comments: PERFORMED BY: [employer] D[employer] eGifter Wnxgyf2279 [facility] [id number] ALT (SGPT) 62 [iU]/L (Abnormal) Range: 0-55 Alkaline Phosphatase, S 82 [iU]/L (Normal) Range: 25-160 AST (SGOT) 106 [iU]/L (Abnormal) Range: 0-40 Bilirubin, Direct 0.44 mg/dL (Abnormal) Range: 0.00-0.40 Bilirubin, Total 0.9 mg/dL (Normal) Range: 0.0-1.2 Albumin, Serum 4.5 g/dL (Normal) Range: 3.6-4.8 Protein, Total, Serum 7.3 g/dL (Normal) Range: 6.0-8.5 17-Ine-945865:13 Thyroxine (T4) Free, Direct, Comments: PERFORMED BY: [employer] DBA eGifterSaint Peter's University HospitalUjmtpe4457 [facility] [id number] S T4,Free(Direct) 1.10 ng/dL Range: 0.82-1.77 (Normal) 11-Feb-2012 Triiodothyronine,Free,Seru 3.4 pg/mL (Normal) Comments: PERFORMED BY: [facility]TouchCorewell [facility]6370 [facility] [id number] 12:13 m Range: 2.0-4.4 11-Feb-2012 TSH 0.371 {uIU/mL} Comments: PERFORMED BY: [facility]6370 [facility] [id number] 12:13 (Abnormal) Range: 0.450-4.500 13-Zuu-697007:04 Thyroxine (T4) Free, Comments: PATIENT WAS FASTINGPERFORMED BY: [facility]6370 [facility] [id number] Information: [id number] Direct, S T4,Free(Direct) 1.25 ng/dL Range: 0.82-1.77 (Normal) 07-Dec-2011 Triiodothyronine,Free,Seru 3.1 pg/mL (Normal) Comments: PATIENT WAS FASTINGPERFORMED BY: [facility]6370 [facility] [id number] 13:04 m Range: 2.0-4.4 07-Dec-2011 Written Authorization WAR (Normal) Comments: PATIENT WAS FASTINGPERFORMED BY: [facility]6370 [facility] [id number] 13:04 Comments: Written Authorization Received.Authorization received from JEWELL HADLEY 25-22-3469Jilcxo by Margaret Zuniga 63-Vwd-717267:04 TSH (41130) Comments: PATIENT WAS FASTINGPERFORMED BY: [facility]6370 [facility] [id number] TSH 0.290 {uIU/mL} (Abnormal) Range: 0.450-4.500 94-Tsw-407998:04 CALCIFIDIOL (59677) VIT D 25 Comments: PATIENT WAS FASTINGPERFORMED BY: [facility]6370 [facility] [id number] Vitamin D, 25-Hydroxy 7.2 ng/mL (Abnormal) Range: 30.0-100.0 Comments: Vitamin D deficiency has been defined by the [place] of[place]icine and an Endocrine Society practice guideline as alevel of serum 25-OH vitamin D less than 20 ng/mL (1,2).The Endocrine Society went on to further define vitamin Dinsufficiency as a level between 21 and 29 ng/mL (2).1. IOM ([place] of Medicine). 2011. Dietary reference intakes for calcium and D. [place]u [place]: The National Academies Press.2. Clifton MF, Robbi MADRID, Ladarius GONZALES, et al. Evaluation, treatment, and prevention of vitamin D deficiency: an Endocrine Society clinical practice guideline. JCEM. 2010; 96(7):1911-30. 10-Mez-310426:04 Vitamin B-12 (cyanocobalamin) Comments: PATIENT WAS FASTINGPERFORMED BY: [facility] Jfhcfr9120 [facility] [id number] (31258) Vitamin B12 920 pg/mL (Normal) Range: 211-946 17-Rav-166287:04 METABOLIC PANEL, COMPREHENSIVE Comments: PATIENT WAS FASTINGPERFORMED BY: [facility] Lodxwq1265 [facility] [id number] (17192) ALT (SGPT) 101 [iU]/L (Abnormal) Range: 0-55 [...] Glucose, Serum 85 mg/dL (Normal) Range: 65-99 58-Gqt-632321:04 LIPID PANEL (49832) Comments: PATIENT WAS FASTINGPERFORMED BY: GetIntent70 [facility] [id number] LDL Cholesterol Calc 79 mg/dL (Normal) Range: 0-99 LDL/HDL Ratio 0.5 {ratio_units} (Normal) Range: 0.0-3.6 VLDL Cholesterol Micah 11 mg/dL (Normal) Range: 5-40 HDL Cholesterol 156 mg/dL (Normal) Comments: Results confirmed ondilution.According to ATP-III Guidelines, HDL-C >59 mg/dL is considered anegative risk factor for CHD. Triglycerides 57 mg/dL (Normal) Range: 0-149 Cholesterol, Total 246 mg/dL (Abnormal) Range: 100-199 50-Yqw-443865:04 CBC WITH MANUAL DIFF Comments: PATIENT WAS FASTINGPERFORMED BY: E.M.A.R.C. Lzlmij6230 [facility] [id number] Information: [id number] (40025) Immature Grans (Abs) 0.0 {x10E3/uL} (Normal) Range: [...] 4.10-5.60 WBC 5.7 {x10E3/uL} (Normal) Range: 4.0-10.5 60-Lbs-19168:56 BRAIN/HEAD W/WO CONTRAST Radiology Report See Note [...] scan of the brain. Dictated on 05/27/11 7918 by Yasmeen ALBARADO,GabrieleTranscribed on 05/27/11 1332 by ITS IMPORTSign by Maxi Arana MD on 1333 Sign by: Maxi Arana MD 00-Wan-50754:00 LIVER Radiology Report See Note (Normal) Comments: [...] size of the right kidney. The right nyyqiybqkinunl17.4 cm. Normal renal cortex. The right cortex measures 1.7 cm. Thereisno de monstrated renal mass or cyst. There are no demonstrated renalcalculi. There is no hydronephrosis. There is no ascites. IMPRESSION:Normal abdominal ultrasound examination. Dictated on 04/21/11 082 9 by Va Arana MDranscribed on 04/21/11 1107 by ITS IMPORTSign by Maxi Arana MD on 04/21/11 1108 Sign by: Maxi Arana MD 87-Mlk-58251:16 HEPATIC FUNCTION PANEL Comments: PATIENT NOT FASTINGPERFORMED BY: LabCoSaint Peter's University HospitalFkbpyq5093 [facility] [id number] Information: [id number] (11886) Alkaline Phosphatase, S 69 [iU]/L (Normal) Range: 25-160 ALT (SGPT) 142 [iU]/L (Abnormal) Range: 0-55 AST (SGOT) 171 [iU]/L (Abnormal) Range: 0-40 Bilirubin, Direct 0.43 mg/dL (Abnormal) Range: 0.00-0.40 Bilirubin, Total 0.8 mg/dL (Normal) Range: 0.0-1.2 Albumin, Serum 4.7 g/dL (Normal) Range: 3.6-4.8 Protein, Total, Serum 7.2 g/dL (Normal) Range: 6.0-8.5 :16 HEPATITIS PANEL (19330) Comments: PATIENT NOT FASTINGPERFORMED BY: [employer] DBA eGifter[address] [id number] Hep C Virus Ab <0.1 {s/co_ratio} (Normal) [...] (Normal) Hep A Ab, IgM Negative (Normal) 64-Pwz-370253:05 CBC With Differential/Platelet Comments: PATIENT WAS FASTINGPERFORMED BY: [email or web address] DBA eGifter[address] [id number] BY: [address] [id number] Immature Grans (Abs) 0.0 {x10E3/uL} (Normal) Range: [...] 4.10-5.60 WBC 7.7 {x10E3/uL} (Normal) Range: 4.0-10.5 50-Vgi-252810:05 Comp. Metabolic Panel Comments: PATIENT WAS FASTINGPERFORMED BY: CB [facility] [address] [id number] BY: BN [facility] [address] [id number] (14) Alkaline Phosphatase, S 74 [iU]/L (Normal) [...] % (Normal) Comments: PATIENT WAS FASTINGPERFORMED BY: [employer] [facility] [id number] BY: [email or web address] DBA eGifter[address] [id number] 3:05 Range: 4.8-5.6 Comments: Increased risk for diabetes: 5.7 - 6.4 Diabetes: >6.4 Glycemic control for adults with diabetes: <7.0 87-Mho-122672:05 Lipid Panel With LDL/HDL Comments: PATIENT WAS FASTINGPERFORMED BY: Get[employer]70 [facility] [id number] BY: [email or web address] DBA eGifter[address] [id number] Ratio LDL Cholesterol Calc 89 mg/dL (Normal) Range: 0-99 LDL/HDL Ratio 0.7 {ratio_units} (Normal) Range: 0.0-3.6 VLDL Cholesterol Micah 18 mg/dL (Normal) Range: 5-40 Cholesterol, Total 241 mg/dL (Abnormal) Range: 100-199 HDL Cholesterol 134 mg/dL (Normal) Comments: Results confirmed ondilution.According to ATP-III Guidelines, HDL-C >59 mg/dL is considered anegative risk factor for CHD. Triglycerides 92 mg/dL (Normal) Range: 0-149 :05 Panel 640450 Comments: PATIENT WAS FASTINGPERFORMED BY: [employer] / [employer] [facility] [id number] BY: [address] [id number] HIV 1/O/2 Abs, Non Reactive Qual (Normal) HIV 1/O/2 <1.00 (Normal) Comments: Index Value: Specimen reactivity relative to the negative cutoff. Abs-Index Value : TSH 0.699 {uIU/mL} Comments: PATIENT WAS FASTINGPERFORMED BY: [employer] [facility] [id number] BY: [address] [id number] 05 (Normal) Range: 0.450-4.500 :05 Vitamin B1 (Thiamine), Comments: PATIENT WAS FASTINGPERFORMED BY: [employer] Ptnrtj3195 [facility] [id number] BY: [address] [id number] Blood Vit. B1, Whole Blood 150.6 nmol/L Range: 66.5-200.0 (Normal) Vitamin B12 >1999 pg/mL Comments: PATIENT WAS FASTINGPERFORMED BY: [employer] [id number] [facility] [id number] BY: [address] [id number] :05 (Abnormal) Range: 211-946 79-Xxo-27543:10 CBCD,SMEAR DIFF BAND 2 % (Normal) Range: [...] 11.6-14.6 WBC 5.0 K/mm3 (Normal) Range: 4.4-11.0 63-Vcu-14960:10 COMP METABOLIC ALK P 72 U/L (Normal) [...] CHOL 200 mg/dL (Normal) Comments: <200 mg/dL Gvtebrbxt774-547 mg/dL Borderline>240 mg/dL High Risk HDL 87 [...] Range: 0.358-3.74 0 (Normal) :1 VIT D,25 62424 20.5 ng/mL (Abnormal) Range: 32.0-100.0 0 Comments: Recent studies consider the lower limit of 32.0 ng/mL to nati threshold for optimal health.Edwin ESPINOZA. J Nutr. 2004;135(2):317-22.Performed at: [place] [address] Director: Adrienne Gil MD, Phone: [phone] :[phone] VITAMIN B12 1239 pg/mL (Normal) Range: 254-1320 0 Comments: There is a low frequency possibility that high titers ofintrinsic blocking antibodies may not be completelyinactivated during the reaction pretreatment stepof this testing method. If test results are in conflictwith the clinical diagnosis, patient should be testedfor the presence of intrinsic factor blocking antibodies. 09-Lcr-986780:24 Urinalysis, Office (24204) UA - LEUKOCYTE Negative (Normal) ESTERASE UA [...] {units} (Normal) Comments: PATIENT WAS FASTINGPERFORMED BY: [address] [id number] 29 Range: 0-19 Comments: Negative <20 Weak positive 20 - 39 Moderate positive 40 - 59 Strong positive >59 : Comment: SPRCS (Normal) Comments: PATIENT WAS FASTINGPERFORMED BY: [address] [id number] 29 Comments: Effective August 25, 2009 order code 736111 CCP IgGAntibodies has been replaced due to an updated reagentversion 3.1. For this reason [facility] has provided youwith a new order code 278828 CCP Antibodies IgG/IgA. :29 PSA (PROSTATE SPECIFIC Comments: PATIENT WAS FASTINGPERFORMED BY: [address] [id number] ANTIGEN) (V76.44) Prostate Specific Ag, 1.0 ng/mL (Normal) Range: 0.0-4.0 Serum Comments: Mónica ECLIA methodology. .According to the [employer] [employer], Serum PSA shoulddecrease and remain at undetectable levels after radicalprostatectomy. The AUA defines biochemical recurrence as an initialPSA value 0.2 ng/mL or greater followed by a subsequent confirmatoryPSA value 0.2 ng/mL or greater.Values obtained with d ifferent assay methods or kits cannot be usedinterchangeably. Results cannot be interpreted as absolute evidenceof the presence or absence of malignant disease. :29 LIPID PANEL (94925) Comments: PATIENT WAS FASTINGPERFORMED BY: [address] [id number] Cholesterol, Total 240 mg/dL (Abnormal) Range: 100-199 HDL Cholesterol 85 mg/dL (Normal) Comments: According to ATP-III Guidelines, HDL-C >59 mg/dL is considered anegative risk factor for CHD. LDL Cholesterol Calc 142 mg/dL (Abnormal) Range: 0-99 LDL/HDL Ratio 1.7 {ratio_units} (Normal) Range: 0.0-3.6 Triglycerides 63 mg/dL (Normal) Range: 0-149 VLDL Cholesterol Micah 13 mg/dL (Normal) Range: 5-40 :29 C-REACTIVE PROTEIN (48751) Comments: PATIENT WAS FASTINGPERFORMED BY: [email or web address] DBA eGifter[address] [id number] C-Reactive Protein, Quant 0.8 mg/L (Normal) Range: 0.0-4.9 :29 SED RATE ERYTHROCYTE (61240) Comments: PATIENT WAS FASTINGPERFORMED BY: [email or web address] DBA eGifter[address] [id number] Sedimentation Rate-Westergren 2 mm/h (Normal) Range: 0-20 :29 ALISON (ANTINUCLEAR ANTIBODY) Comments: PATIENT WAS FASTINGPERFORMED BY: [email or web address] D[employer] eGifter[address] [id number] (04272) ALISON Direct Negative (Normal) :29 CBC WITH MANUAL DIFF (08072) Comments: PATIENT WAS FASTINGClinical Information: 428343,Z19777 PERFORMED BY: [email or web address] D[employer] eGifter[address] [id number] Baso (Absolute) 0.1 {x10E3/uL} (Normal) Range: 0.0-0.2 [...] PANEL, COMPREHENSIVE Comments: PATIENT WAS FASTINGPERFORMED BY: [facility] [id number] (30451) A/G Ratio 1.5 (Normal) Range: 1.1-2.5 Albumin, [...] mmol/L (Normal) Range: 135-145 :29 RHEUMATOID FACTOR-QUANT (06009) Comments: PATIENT WAS FASTINGPERFORMED BY: [facility] [address] [id number] RA Latex Turbid. 8.4 {IU/mL} (Normal) Range: 0.0-13.9 :29 TSH (06563) Comments: PATIENT WAS FASTINGPERFORMED BY: [facility] [address] [id number] TSH 0.661 {uIU/mL} (Normal) Range: 0.450-4.500 64-Fek-862280:30 RIBS,UNI,MIN 3V,W/PA CHEST(MT) Radiology Report See Note (Normal) Comments: Exam Number: [id number] FRONTAL CHEST AND LEFT RIBS CLINICAL HISTORY [...] (PROSTATE SPECIFIC Comments: PATIENT NOT FASTINGPERFORMED BY: [email or web address] D[employer] eGifter[address] [id number] ANTIGEN) (V76.44) Prostate Specific Ag, Serum 1.6 ng/mL (Normal) Range: 0.0-4.0 Comments: [employer] methodology. .According to the [employer], PSA should beundetectable after radical prostatectomy. A PSA of less than0.5 ng/mL (or undetectable) is not likely to be associated withdisease recurrence within five years of treatment.Values obtained with different assay methods or kits cannot be usedinterchang eably. Results cannot be interpreted as absolute evidenceof the presence or absence of malignant disease. :47 TSH (95147) Comments: PATIENT NOT FASTINGPERFORMED BY: [employer] [address] [id number] TSH 0.463 {uIU/mL} (Normal) Range: 0.450-4.500 :47 CBC (Auto) (61827) Comments: PATIENT NOT FASTINGPERFORMED BY: [email or web address] DBA eGifter[address] [id number] Hematocrit 47.6 % (Normal) Range: 36.0-50.0 Hemoglobin [...] PATIENT NOT FASTINGClinical Information: ADD DRAW FEE 232051 ADD J 96509 PERFORMED BY: [employer] [address] [id number] (72202) A/G Ratio 1.4 (Normal) Range: 1.1-2.5 Albumin, [...] mmol/L (Normal) Range: 135-145 :47 Lipid Panel (01198) Comments: PATIENT NOT FASTINGPERFORMED BY: [employer] [facility] [id number] Cholesterol, Total 199 mg/dL (Normal) Range: 100-199 [...] (Normal) Range: 5-40 :47 Methylmalonic acid, serum 51470 Comments: PATIENT NOT FASTINGPERFORMED BY: Personal [address] [id number] Methylmalonic Acid, Serum 225 nmol/L (Normal) Range: [...] B-12 (cyanocobalamin) Comments: PATIENT NOT FASTINGPERFORMED BY: Personal [address] [id number] (14957) Vitamin B12 256 pg/mL (Normal) Range: 211-911 26-Izb-703279:30 Metabolic Panel, Basic Comments: PATIENT NOT FASTINGClinical Information: ADD DRAW FEE 729384 ADD J 67773 PERFORMED BY: [email or web address] DBA eGifterDzilth-Na-O-Dith-Hle Health CenterMhddcv3861 [facility] [id number] (23636) BUN 13 mg/dL (Normal) Range: 5-26 BUN/Creatinine [...] on 'Glom Filt Rate, Est' and 'If -Vincentian' will be changing to >59 mL/min/1.73. Glucose, Serum 86 mg/dL (Normal) Range: 65-99 If -Vincentian >59 mL/min/1.73 Range: 60-137 (Normal) Comments: Note: [...] 3.5-5.1 NA 136 mmol/L (Normal) Range: 136-145 20-Bjp-31221:01 CBCD BASO% 0.5 % (Normal) Range: 0-1 [...] Report See Note (Normal) Comments: Exam Number: [id number] PA AND LATERAL CHEST HISTORY Being done [...] (PROSTATE SPECIFIC Comments: PATIENT WAS FASTINGPERFORMED BY: [employer] [id number] [facility] [id number] ANTIGEN) Prostate-Specific Ag, Serum 0.5 ng/mL (Normal) Range: 0.0-4.0 Comments: Cathie (formerly [employer]) [facility] methodology :28 Vitamin B-12 (cyanocobalamin) Comments: PATIENT WAS FASTINGPERFORMED BY: [employer] Hnsjwh9673 [facility] HospitalDataCrowdAtrium Health [facility] [id number] (93540) Vitamin B12 283 pg/mL (Normal) Range: 211-911 04-Yrl-35898:28 C-REACTIVE PROTEIN (99691) Comments: PATIENT WAS FASTINGPERFORMED BY: [employer] Qklhsf3960 [facility] [id number] C-Reactive Protein, Quant 0.6 mg/L (Normal) Range: 0.0-4.9 :28 SED RATE ERYTHROCYTE (52525) Comments: PATIENT WAS FASTINGPERFORMED BY: [place] [id number] [facility] [id number] Sedimentation Rate-Westergren 2 mm/h (Normal) Range: 0-20 :28 RHEUMATOID FACTOR-QUANT (62904) Comments: PATIENT WAS FASTINGPERFORMED BY: [address] [id number] RA Latex Turbid. 5.2 {IU/mL} (Normal) Range: 0.0-13.9 :28 TSH (72581) Comments: PATIENT WAS FASTINGPERFORMED BY: [address] [id number] TSH 0.436 {uIU/mL} (Normal) Range: 0.350-5.500 :28 ALISON (ANTINUCLEAR ANTIBODY) Comments: PATIENT WAS FASTINGPERFORMED BY: [address] [id number] (93431) Antinuclear Antibodies Direct 23 AU/mL (Normal) Range: 0-99 Comments: Negative <100 Equivocal 100 - 120 Positive >120 : CBC WITH MANUAL DIFF (27390) Comments: PATIENT WAS FASTINGClinical Information: ADD DRAW FEE 883043 ADD J 27468 PERFORMED BY: [address] [id number] Baso (Absolute) 0.0 {x10E3/uL} (Normal) Range: 0.0-0.2 [...] 11.7-15.0 WBC 5.8 {x10E3/uL} (Normal) Range: 4.0-10.5 70-Mby-80841:28 METABOLIC PANEL, COMPREHENSIVE Comments: PATIENT WAS FASTINGPERFORMED BY: LabCoSaint Peter's University HospitalIjherp0575 [facility] [id number] (47430) A/G Ratio 1.6 (Normal) Range: 1.1-2.5 Albumin, [...] Report See Note (Normal) Comments: Exam Number: [id number] 2 VIEWS OF CHEST PA and lateral views of the chest are compared to the [facility]. There is mild cardiomegaly. There is tortuosityof the aorta. There is n o acute infiltrate, area of consolidation,pleural effusion or vascular congestion identified. Bony structuresare grossly intact. IMPRESSIONNo acute pulmonary abnormality is identified. Reported By: SANJIV MCCOLLUM M.D. : VIT B12 1503 170 pg/mL (Abnormal) Range: 211-911 51 Comments: Performed At: [address] [id number] :19 CBC HCT 46.1 % (Normal) Range: [...] was performed using the TPSA method for theDimensiRocket Internet chemistry system.Values obtained with different assay methods [...] pg/mL (Abnormal) Range: 211-911 Comments: Performed At: [address] [id number] Plan of Care Name Dates Details Instructions [...] : Follow up in 2 weeks with [facility] Indication: Smoker Smoker : Follow up in [...] Planned Observations CBC, Platelets & Auto Diff (57298)Indication: Testosterone deficiency On: : Request Comments: to be done March 2017 HEPATIC FUNCTION PANEL (89923)Indication: Testosterone deficiency On: : Request Comments: to be done March 2017 Metabolic Panel, Comprehensive (00193)Indication: Testosterone deficiency On: : Request Comments: to be done in March 2017 MICROALBUMIN: CREATININE RATIO (52607) AND (60243)Indication: Hypertension On: 07-Hgg-872140:04 Request URINALYSIS (80164)Indication: Hypertension On: 66-Bvx-163120:02 Request Urinalysis, Office (09196)Indication: Preop examination On: 04-Nzw-449756:45 Request HgA1C , Office (09153)Indication: Impaired fasting glucose On: 05-Moj-175700:59 Request MICROALBUMIN: CREATININE RATIO (12218) AND (29457)Indication: Hypertension On: 01-Dec-20158:35 Request Urinalysis, Office (98261)Indication: Abdominal wall pain On: 46-Vtw-096609:30 Request Vitamin B-12 (cyanocobalamin) (57973)Indication: B12 deficiency On: :37 Request CALCIFIDIOL (33032) VIT D 25Indication: Vitamin D deficiency, unspecified On: :37 Request METABOLIC PANEL, COMPREHENSIVE (33955)Indication: Hypertension On: :37 Request LIPID PANEL (10533)Indication: Hypertension On: :37 Request CBC with auto diff (41379)Indication: Hypertension On: :37 Request CALCIFEDIOL (73763)Indication: Vitamin D deficiency, unspecified On: 25-Etc-622065:58 Request HgA1C , Office (37527)Indication: Impaired fasting glucose On: :21 Request Blood Glucose , Office (88712)Indication: Impaired fasting glucose On: :21 Request METABOLIC PANEL, COMPREHENSIVE (63367)Indication: Hypertension On: 71-Ydu-911696:15 Request LIPID PANEL (11131)Indication: Hypertension On: 46-Hoj-153074:15 Request CALCIFEDIOL (97953)Indication: Vitamin D deficiency, unspecified On: 7-Hmi-157907:46 Request ALCOHOL, ETHYL (BLOOD) (77501)Indication: Alcohol abuse, continuous drinking behavior On: 55-Jzc-309978:45 Request ALCOHOL, ETHYL (BLOOD) (70572)Indication: Other and unspecified alcohol dependence, unspecified drinking behavior On: 09-Hix-631282:19 Request CALCIUM SERUM (14546)Indication: Dysuria On: 04-Pru-59319:42 Request Potassium Serum (74246)Indication: Hypopotassemia On: 28-Uyb-401008:36 Request Comments: recheck in 2 weeks Magnesium (37768)Indication: Hypopotassemia On: 64-Ikb-141562:36 Request Comments: re check in 2 weeks MAGNESIUM (15442)Indication: Other symptoms and signs involving general sensations and perceptions On: 2-Ylj-955167:19 Request Potassium Serum (93367)Indication: Hypopotassemia On: 4-Mzh-052342:29 Request Magnesium (53049)Indication: Hypopotassemia On: 7-Cfi-917522:29 Request Phosphorus (26885)Indication: Hypopotassemia On: 1-Qvr-929921:29 Request Metabolic Panel, Basic (56450)Indication: Hypopotassemia On: 1-Itw-145390:19 Request TSH (81793)Indication: Abnormal TSH On: 78-Dhn-334592:45 Request ASM (ANTI SMOOTH MUSCLE ANTIBODY) (32423)Indication: Elevated LFTs On: 05-Avn-028973:05 Request CALCIFIDIOL (16257) VIT D 25Indication: Vitamin D deficiency, unspecified On: 12-Fom-102046:01 Request Metabolic Panel, Comprehensive (69866)Indication: Hypertension On: 36-Xcs-238145:47 Request Drug Screen (Urine 6-Panel) (92344)Indication: Other and unspecified alcohol dependence, unspecified drinking behavior On: 52-Ghm-117592:25 Request THIAMINE (B-1) (89725)Indication: Other and unspecified alcohol dependence, unspecified drinking behavior On: 73-Qni-776222:24 Request CBC (Auto) (75802)Indication: Fatigue On: :22 Request Lipid Panel (49513)Indication: Hypertension On: :22 Request Metabolic Panel, Comprehensive (37395)Indication: Fatigue On: :22 Request TSH (56911)Indication: Anxiety On: :22 Request Vitamin B-12 (cyanocobalamin) (65582)Indication: B12 deficiency On: : Request Hemoglobin Glyclated (HGB A1C) (13368)Indication: Candidiasis, mouth On: : Request HIV-1 ANTIBODY (01094)Indication: Candidiasis, mouth On: : Request Vitamin B-12 (cyanocobalamin) (88725)Indication: B12 deficiency On: :26 Request Metabolic Panel, Comprehensive (16303)Indication: Impaired fasting glucose On: :26 Request CALCIFEDIOL (49516)Indication: Vitamin D deficiency, unspecified On: :25 Request METABOLIC PANEL, COMPREHENSIVE (26605)Indication: Hypertension On: 84-Vtm-353372:20 Request LIPID PANEL (07710)Indication: Hypertension On: 13-Lwn-515551:20 Request CBC WITH MANUAL DIFF (82760)Indication: Hypertension On: 43-Bck-287674:20 Request Vitamin B-12 (cyanocobalamin) (98344)Indication: B12 deficiency On: 73-Xiv-683702:20 Request CALCIFIDIOL (04657) VIT D 25Indication: Fatigue On: 03-Udw-274019:19 Request TSH (00668)Indication: Fatigue On: 66-Lxy-711112:19 Request Metabolic Panel, Comprehensive (32090)Indication: Impaired fasting glucose On: 62-Upr-826306:20 Request Comments: in three months (approximately) Metabolic Panel, Basic (01114)Indication: Hypertension On: :19 Request Comments: 2 weeks CBC (Auto) (40487)Indication: Alcohol abuse, continuous drinking behavior On: :17 Request Lipid Panel (64934)Indication: Impaired fasting glucose On: :16 Request Comments: in three months (approximately) Methylmalonic acid, serum 71214Pxehlofeds: B12 deficiency On: :16 Request Comments: in three months (approximately) Vitamin B-12 (cyanocobalamin) (33294)Indication: B12 deficiency On: 28-Rlb-680024:16 Request Comments: in three months (approximately) CCP ANTIBODY (49737)Indication: Pain in unspecified joint On: :56 Request HgA1C , Office (97941)Indication: Impaired fasting glucose On: 93-Bwk-239125:40 Request CARINE CULTURE-STOOL (29992)Indication: Diarrhea On: :52 Request C-DIFFICILE, STOOL (71689)Indication: Diarrhea On: :52 Request LEUKOCYTE COUNT, FECAL (13962)Indication: Diarrhea On: :52 Request OCCULT BLOOD FECES SCREEN (83361)Indication: Diarrhea On: :52 Request OVA & PARASITE DIR SMEAR (77451)Indication: Diarrhea On: :52 Request Metabolic Panel, Basic (47528)Indication: Hypertension On: :05 Request Metabolic Panel, Basic (15848)Indication: Hypertension On: :41 Request Vitamin B-12 (cyanocobalamin) (93970)Indication: B12 deficiency On: :41 Request Comments: 8 weeks CBC (Auto) (13667)Indication: Diarrhea On: :07 Request Metabolic Panel, Basic (15428)Indication: Diarrhea On: 8-Sue-992737:07 Request VITAMIN B-12 (CYANOCOBALAMIN) (56346)Indication: B12 deficiency On: 5-Imq-641638:04 Request Comments: methylmalonic acid CARINE CULTURE-STOOL (52130)Indication: Diarrhea On: 0-Xxs-956837:58 Request LEUKOCYTE COUNT, FECAL (59446)Indication: Diarrhea On: 6-Ykg-135343:58 Request C.Difficile, Stool (35802)Indication: Diarrhea On: 0-Pir-958028:58 Request OVA & PARASITE DIR SMEAR (25596)Indication: Diarrhea On: 8-Isj-930777:58 Request Vitamin B-12 (cyanocobalamin) (88401)Indication: B12 deficiency On: 7-Cpv-516840:53 Request Planned Procedures Flu Vaccine (Quadrivalent) On: 08-Aug-2018 Intent 86422Tn: Lauryn Hanson Comments: Lot #[id number]-L dltd, IMDose prefilled syringegiven by:LAMAR Sullivan reviewed and ABN signed ELECTROCARDIOGRAM, COMPLETE On: 17-May-2018 Intent (ECG) (31253)By: Devaughn PASTOR, Comments: nsr no acute chg Jazmine ATTENDED SLEEP STUDY (50625)By: On: 08-May-2018 Intent Jailene Mayfield CNP, CNP, Mary E SPIROMETRY (56507)By: Tran On: 06-Jan-2018 Intent Jailene LOTT CNP, Mary E Comments: normal Aerosol Treatment (06709)By: On: 19-Dec-2017 Intent Sue Rooney Comments: Lungs clear after aerosol treatment. CHEST XRAY, PA & LATERAL On: 19-Dec-2017 Intent (65793)By: Sue Rooney Radiology - Lumbar SpineBy: On: 19-Dec-2017 Intent Sue Rooney Flu Vaccine (Quadrivalent) On: 20-Sep-2017 Intent 97685Df: Jailene Mayfield CNP Comments: QUAD flu 0.5ml injectionlot number: [id number]: 02/2018R Deltoid IMpt tolerated wellAD LICENSED PHARMACIST Jailene Mayfield CNP Nuclear Stress Test/Stress On: 25-May-2017 Intent SPECT/AdenosineBy: Jailene Mayfield CNP, CNP, Mary E Echo CompleteBy: Tran LOTT, On: 25-May-2017 Intent Jailene Puri CNP Holter Monitor 24 hrsBy: Tran On: 16-May-2017 Intent Jailene LOTT CNP, Mary E ELECTROCARDIOGRAM, COMPLETE On: 16-May-2017 Intent (ECG) (89006)By: Tran LOTT, Comments: sinus bradicardia and widening QT Jailene Vega Tran LOTT Jailene Vega Ultrasound - ThyroidBy: Nicholasa On: 29-Mar-2017 Intent KAYLIE Jailene Vega Tran LOTT Jailene Vega Flu Vaccine (Quadrivalent) On: 12-Jan-2017 Intent 47048Yj: Tran LOTT [place] Comments: Lot:[id number]:05/27/17Dose:0.5mLRoute:IMSite:L DltdGiven By:JOHANNE signed Tran LOTT [place] PNEUM VAC ADLT/IMUMNOSPR, On: 12-Jan-2017 Intent SBC/INTRM (13731)By: Tran LOTT, Comments: Lot:[id number]:04/16/18Dose:0.5mgRoute:imSite:r armGiven By:JOHANNE signed AuerliaGary Mayfield CNP [place] Radiology - Chest- PA and On: 02-Dec-2016 Intent LatBy: Jazmine Cantor DO Spirometry (94409)By: Devaughn On: 02-Dec-2016 Jazmine Lowry DO Comments: obstructive pattern Aerosol Treatment (09328)By: On: 02-Dec-2016 Intent Jazmine Cantor DO Comments: more a/e but still inspir and exp noise - wheeze and rhonchi Solu- Medrol Injection, 125mg On: 02-Dec-2016 Intent (J2930)By: Jazmine Cantor DO Comments: solumedrollot:[id number]:05/16site:rt glutroute:IMdose:125mgD.ANN MARIE Gonzáles CHEST XRAY, PA & LATERAL On: 28-Sep-2016 Intent (13309)By: Jailene Mayfield CNP, CNP [place] Radiology - ChestBy: Tran LOTT, On: 21-Sep-2016 Intent AureliaGary Mayfield CNP [place] ELECTROCARDIOGRAM, COMPLETE On: 21-Sep-2016 Intent (ECG) (86840)By: Esequiel LANGSTON, Comments: sinus rthym Safia Ear Irrigation (91479)By: On: 19-Jul-2016 Intent Tran LOTT AureliaGary Mayfield CNP [place] Wax CurettesBy: Waqar ALBARADO, On: 06-Feb-2016 Intent Jewell Kendall Ear Irrigation (04387)By: On: 06-Feb-2016 Intent Jewell Hadley MD EKG (20955)By: Waqar ALBARADO, On: 17-Jun-2015 Intent Jewell Kendall Comments: see scanned document of test done to see results reviewed today with patient VITAMIN B12 INJECTION On: 27-Mar-2015 Intent (95448)By: Bethany Rehman Comments: Vitaman b12 Lot:[id number]:02/10Route:IMSite:L DeltoidDose: 1 mLgiven by:ANS INJECTION, VITAMIN B-12 On: 27-Mar-2015 Intent CYANOCOBALAMIN, UP TO 1000 MCG (Special Coverage Instructions Apply. See CIM: 45-4 and MCM: 2048) (J3420)By: Jewell Hadley MD Flu Vaccine (Quadrivalent) On: 09-Oct-2014 Intent 44000Oe: Jewell Hadley MD ADMINISTRATION OF INFLUENZA On: 09-Oct-2014 Intent VIRUS VACCINE (G0008)By: Jewell Hadley MD PHYSICAL THERAPY EVALUATION On: 17-May-2014 Intent (27681)By: Jailene Mayfield CNP, CNP, Mary E Radiology - Cervical SpineBy: On: 17-May-2014 Intent Jailene Mayfield CNP, CNP, Mary E Eprescribed prescriptions On: 26-Mar-2014 Intent (G8553)By: Jewell Hadley MD IMMUNIZATION ADMIN (33960)By: On: 12-Feb-2013 Intent Yoli Martinez LPN Comments: brought own B-12 Lot #[id number], exp. 11/10. given IM in L deltoid without difficylty or c/o voiced. jq INFUSION, NORMAL SALINE On: 12-Feb-2013 Intent SOLUTION , 1000 CC (Special Comments: Normal Saline, Lot #[id number], exp. June 10 infusing without infiltrate in L AC. JQ Coverage Instructions Apply. See MCM: 2048) (J7030)By: Jailene Mayfield CNP, CNP, Mary E HYDRATION IV INFUSION, INIT On: 12-Feb-2013 Intent (07471)By: Jailene Mayfield CNP Comments: IV initiated in: [...] On: 23-Mar-2010 Intent Jewell Kendall Ear Irrigation (43645)By: On: 23-Mar-2010 Intent Jewell Hadley MD EKG (44754)By: Waqar ALBARADO, On: 23-Mar-2010 Intent Jewell Kendall PHYSICAL THERAPY EVALUATION On: 21-Jan-2010 Intent ([id number])By: Jailene Mayfield CNP, CNP, Mary E Taxftfkzp-Tpg-Bfvf ([id number])By: On: 07-Jul-2009 Intent Jazmine Cantor DO EKG ([id number])By: Juan LANGSTON, On: 04-Apr-2009 Intent Yoli Ear Irrigation ([id number])By: On: 30-Jan-2009 Intent Jewell Hadley MD Spirometry ([id number])By: Waqar On: 28-Feb-2008 Intent Jewell ALBARADO Radiology - ChestBy: Waqar On: 18-Jan-2008 Intent Jewell ALBARADO B 12 Injection, 1000 mcg On: 02-Nov-2007 Intent (J3420)By: SHALINI Velazquez Comments: Lot #:[id number] date:ount given:1 ml Route: IMSite given:left deltoid Given by: darryl B 12 Injection, 1000 mcg On: 22-Sep-2007 Intent (J3420)By: Carolann White RN COLLECT VENOUS BLOOD, On: 25-Aug-2007 Intent VENIPUNCTURE ([id number])By: Magda Viveros B 12 Injection, 1000 mcg [...] Velazquez ELECTROCARDIOGRAM, COMPLETE On: 27-Mar-2007 Intent (ECG) ([id number])By: Jewell Hadley MD B 12 Injection, 1000 mcg On: 27-Mar-2007 Intent (J3420)By: Jewell Hadley MD Pulse Oximetry ([id number])By: On: 27-Mar-2007 Intent Jewell Hadley MD Spirometry ([id number])By: Waqar On: 27-Mar-2007 Intent Jewell ALBARADO Radiology [...] 45-4 and MCM: 2048) ([id number])By: Marianne Beck ([id number])By: Waqar ALBARADO, On: 09-Dec-2006 Intent Jewell Kendall [...] enzymes : DISCONTINUED - ALCOHOL, ETHYL (BLOOD) (77823) Indication: Elevated liver enzymes Elevated liver enzymes : DISCONTINUED - HEPATIC FUNCTION PANEL (56094) Indication: Elevated liver enzymes Current smoker : [...] On: 23-Sep-2017 11:20 Encounter Reason: A1c finger [place] office Encounter Diagnosis: Unspecified Diagnosis End: 23-Sep-2017 [...] for the procedure will be doctor antonieta ?[facility]. Pertinent medical history includes End: 29-Sep-2016 10:56 [...] for the procedure will be doctor antonieta [facility]. Pertinent medical history includes pr End: 21-Sep-2016 [...] patient does not have durable power of title attorney or living will. The patient has [...] Note for Leg pain: moving furniture on [facility] felt pop and pull yesterday. troule [...]
--- OUTSIDE RECORDS SUMMARY | 2018-12-20 02:33 | XMS RPT_ITS | Continuity of Care Document ---
:1950 Author Organization [facility] Address [address] [place] [address] Phone Care Team Providers Name Role Phone Jailene Mayfield CNP Unavailable Dr. Gre Gaston Unavailable Jennifer Osuna Unavailable Wesley Sousa Unavailable [facility] Unavailable Blaire ALBARADO, Domenic Mancilla Unavailable Jessica Pop Unavailable Patricio Burton Unavailable Sondra Jimenez Unavailable Unavailable July Mazariegos Unavailable Sasha NEWBERRY MD, Maggie Bernal Unavailable Jhony Yusuf Unavailable Hayden Valero Unavailable Zoila Elder Unavailable Unavailable Sue Rooney Unavailable Unavailable Slarb FOREST PRACTICES FIELD COORDINATOR, Safia Unavailable Unavailable Long FOR[employer]ACTICES FIELD COORDINATOR, Mehnaz L Unavailable Unavailable SHENA LemusN Sue [...] months doing well seeing Rogerio Freitas at [place]. stil work with him on and off. [...] V70.0) Comments: 02-06-16 PSA , colonoscopy 2009 ([facility]) reviewed all tests and answered all questions. needs all immunizations updated, rec. local pharm for tetanus and Vpqioyy38,whisper test=WNL mini mental=30/30 Status: Active Erectile disorder, [...] prevacid 3, wean nexium and take acid collar turner as needed. Status: Active Hearing loss of [...] for years ? contributory, on equate acid collar turner seeing Dr La Status: Active Muscle spasm [...] Comments: two low T's done 09-21-16 and 5-4-07qjovwf labs good, recheck psa and then cbc, [...] Jailene Vega Start : 20-Sep-2017 Active Ergocalciferol 71441 UNIT Oral Capsule 1 (one) Capsule Capsule [...] Quantity: 90 {Capsule_DR} Refills: 3 Ordered:26-Mar-2014 Long FOREST [employer]ACTICES FIELD COORDINATOR, Mehnaz L Start : 06-Nov-2012 End : 26-Mar-2014 Inactive DEXILANT, 60MG (Oral Capsule Delayed Release) [address] qd for 0 days Quantity: 90 {Capsule_DR} Refills: 3 Ordered:26-Mar-2014 Long FOREST [employer]ACTICES FIELD COORDINATOR, Mehnaz L Start : 06-Nov-2012 End : 26-Mar-2014 Inactive DICYCLOMINE HCL, 20MG (Oral Tablet) uad Tablet BID/PRN for 0 days Quantity: 30 {Tablet} Refills: 3 Ordered:26-Mar-2014 Long FOREST [employer]ACTICES FIELD COORDINATOR, Mehnaz L Start : 03-Mar-2011 End : [...] End : 16-Dec-2014 Inactive Comments:watch sunsensitivity DRISDOL, 19889HNKM (Oral Capsule) 1 Capsule three times weekly for 0 days Quantity: 12 {Capsule} Refills: 3 Ordered:26-Mar-2014 Long FOREST [employer]ACTICES FIELD COORDINATOR, Mehnaz L Start : 15-Feb-2012 End : 26-Mar-2014 Inactive Exforge 5-160 MG Oral Tablet 1 (one) Tablet QD for 0 days Quantity: 90 {Tablet} Refills: 1 Ordered:20-Feb-2018 Tran LOTTJailene CNP, Mary E Start : 29-Nov-2017 End : 20-Feb-2018 Inactive Exforge 5-320 MG Oral Tablet 1 (one) Tablet daily for 0 days Quantity: 30 {Tablet} Refills: 3 Ordered:26-Jul-2018 Jailnee Mayfield CNP, CNP, Mary E Start : [...] Quantity: 50 {Mil} Refills: 0 Ordered:09-Feb-2011 Bhumikakasishamika ESTIMATOR, Jailene Rodney ESTIMATOR, Aurelia Start : 09-Feb-2011 End : 19-Feb-2011 [...] Quantity: 10 {Tablet} Refills: 4 Ordered:21-Mar-2017 Slarb FOREST PRACTICES FIELD COORDINATOR, Safia Start : 06-Feb-2016 End : 21-Mar-2017 Discontinued Vitamin B Complex Oral Tablet 1 (one) Tablet daily for 30 days Quantity: 30 {Tablet} Refills: 0 Ordered:13-Jun-2017 Slarb FOREST PRACTICES FIELD COORDINATOR, Safia Start : 16-May-2017 End : 13-Jun-2017 Discontinued Vitamin B1 100 MG Oral Tablet 1 (one) Tablet Tablet bid for 0 days Quantity: 30 {Tablet} Refills: 0 Ordered:21-Sep-2016 Slarb FOREST PRACTICES FIELD COORDINATOR, Safia Start : 08-Jul-2014 End : 21-Sep-2016 [...] Comments: doing well seeing Rogerio Freitas at [place]. doing well. Currently in remission. doing AA [place] meeting every tuesday. going every other week. [...] cyst Surgery Oct 01 Dr. Chauhan at [facility] Status: Inactive as of 20-Sep-2017 [...] Contrast Result: Comments: See Note; NOTES: [facility] Imaging Services [address] [place] [address] CT Abd/Pelvis W/WO Contrast MR#: [id number] Acct: [id number] Name: WILBERT SEGURA Rep # : [id number] : 1950 M 68 From: Syed Kraft PCP: Jailene Mayfield NP Status: REG CLI Study: CT Abd/Pelvis W/WO Contrast Date of Exam: 08/22/18 Exam# [id number] Ordering Dr: Gloria Batista RECORDS MANAGEMENT ASSOCIATE-C STUDY: CT ABDOMEN AND PELVIS WITH AND [...] CC: Jailene Mayfield NP; Gloria Batista NP [employer] Department Supervisor: Signed 05-Jul-[address] Lung Screening Result: Comments: See Note; NOTES: [facility] Imaging Services [address] [place] [address] Lung Screening MR#: [id number] Acct: [id number] Name: WILBERT SEGURA Rep #: [id number] : 1950 M 68 From: Omar Montes De Oca MD PCP: Tran HENDRIX, Jailene Status: REG CLI Study: Low Dose CT Lung Screening Date of Exam: 07/05/18 Exam# [id number] Ordering Dr: Jhony Yusuf MD STUDY: CT [...] CC: Jailene Mayfield NP; Jhony Yusuf MD [employer] Department Supervisor: Signed 03-Jul-2018 Pelvis 1 or 2 Views Result: Comments: See Note; NOTES: [facility] Imaging Services [address] [place] [address] Pelvis 1 or 2 Views MR#: [id number] Acct: [id number] Name: WILBERT SEGURA Rep #: [id number] : 1950 M 68 From: Yuridia Dey MD PCP: Jailene Mayfield NP Status: REG CLI Study: Pelvis 1 or 2 Views Date of Exam: 07/03/18 Exam# [id number] Ordering Dr: July Mazariegos MD STUDY: X-RAY [...] CC: Jailene Mayfield NP; July Mazariegos MD [employer] Department Supervisor: Signed 19-Dec-2017 Chest PA and Lateral Result: Comments: See Note; NOTES: [facility] Imaging Services [address] [place] [address] Chest PA and Lateral MR#: [id number] Acct: [id number] Name: WILBERT SEGURA Rep #: [id number] : 1950 M 67 From: Liu Fatima DO PCP: Jailene Mayfield NP Status: REG CLI Study: Chest PA and Lateral Date of Exam: 12/19/17 Exam# [id number] Ordering Dr: Sue Rooney STUDY: X-RAY [facility] REASON FOR EXAM: Male, 67 years old. [...] Signed: Orlando Whalen at 13:03 EST Tel [phone], Service support , CC: Jialene Mayfield NP; ANGELICA Rooney [employer] Department Supervisor: Signed 19-Dec-2017 Chest PA and Lateral Result: Comments: See Note; NOTES: [facility] Imaging Services [address] [place] [address] Chest PA and Lateral MR#: [id number] Acct: [id number] Name: WILBERT SEGURA Rep #: [id number] : 1950 M 67 From: Liu Fatima DO PCP: Jailene Mayfield NP Status: REG CLI Study: Chest PA and Lateral Date of Exam: 12/19/17 Exam# [id number] Ordering Dr: Sue Rooney STUDY: X-RAY THANH [...] IMPRESSION: No acute cardiopulmonary disease. Electronically Signed: rOlando Whalen at 13:03 EST Tel [phone], Service support , CC: Jailene Mayfield NP; ANGELICA Rooney [employer] Department Supervisor: Signed 19-Dec-2017 L/S Spine Min 4 Views Result: Comments: See Note; NOTES: [facility] Imaging Services [address] [place] [address] L/S Spine Min 4 Views MR#: [id number] Acct: [id number] Name: WILBERT SEGURA Rep #: [id number] : 1950 M 67 From: Liu Fatima DO PCP: Jailene Mayfield NP Status: REG CLI Study: L/S Spine Min 4 Views Date of Exam: 12/19/17 Exam# [id number] Ordering Dr: Sue Rooney STUDY: X-RAY - [...] Liu Fatima DO at 13:02 EST Tel [phone], Service support , CC: Jailene Mayfield NP; ANGELICA Rooney [employer] Department Supervisor: Signed 04-Apr-2017 Thyroid Result: Comments: See Note; NOTES: [facility] Imaging Services [address] [place] [address] Verdana 4d Thyroid MR#: [id number] Acct: [id number] Name: WILBERT SEGURA Rep #: [id number] : 1950 M 67 From: Liu Fatima DO PCP: Jailene Mayfield Status: REG CLI Study: Thyroid Date of Exam: 04/04/17 Exam# [id number] Ordering Dr: Jailene Mayfield STUDY: THYROID ULTRASOUND [...] Liu Fatima DO at 8:53 EDT Tel [phone], Service support , Fax CC: Jailene Mayfield [employer] Department Supervisor: Signed 02-Dec-2016 Chest PA and Lateral Result: Comments: See Note; NOTES: [facility] Imaging Services [address] [place] [address] Verdana 4d Chest PA and Lateral MR#: [id number] Acct: [id number] Name: WILBERT SEGURA ep #: [id number] : 1950 M 66 From: Liu Fatima DO PCP: Jailene Mayfield Status: REG CLI Study: Chest PA and Lateral Date of Exam: 12/02/16 Exam# [id number] Ordering Dr: Jazmine Cantor DO STUDY: X [...] Liu Fatima DO at 12:13 EST Tel [phone], Service supp ort [phone], CC: Jailene Mayfield; Jazmine Cantor DO [employer] Department Supervisor: Signed 08-Nov-2016 Chest 1 View (Portable) Result: Comments: See Note; NOTES: [facility] Imaging Services [address] [place] [address] Verdana 4d Chest 1 View (Portable) MR#: [id number] Acct: [id number] Name: WILBERT SEGURA Rep #: [id number] : 1950 66 From: Maxi Arana MD PCP: Jailene Mayfield Status: REG ER Study: Chest 1 View (Portable) Date of Exam: 11/08/16 Exam# [id number] Ordering Dr: Leon Rodrigues MD UDY: X-RAY [...] Maxi Arana MD at 9:02 EST Tel [phone], Service support [phone], CC: Ann Marie Mayfield; Leno Rodrigues MD [employer] Department Supervisor: Signed 28-Sep-2016 Chest PA and Lateral Result: Comments: See Note; NOTES: [facility] Imaging Services [address] [place] [address] Verdana 4d Chest PA and Lateral MR#: [id number] Acct: [id number] Name: WILBERT SEGURA Rep #: [id number] : 1950 M 66 From: Tree Saul MD PCP: Jailene Mayfield Status: REG CLI Study: Chest PA and Lateral Date of Exam: 09/28/16 Exam# [id number] Ordering Dr: Jailene Mayfield STUDY: X-RA Y [...] MD at 21:06 EDT , Service support [phone], CC: Jailene Mayfield [employer] Department Supervisor: Signed 21-Sep-2016 Chest PA and Lateral Result: Comments: See Note; NOTES: [facility] Imaging Services [address] [place] [address] Verdana 4d Chest PA and Lateral MR#: [id number] Acct: [id number] Name: WILBERT SEGURA Rep #: [id number] : 1950 M 66 From: Maxi Arana MD PCP: Jailene Mayfield Status: REG CLI Study: Chest PA and Lateral Date of Exam: 09/21/16 Exam# [id number] Ordering Dr: Jailene Mayfield STUDY: X-RAY CHEST [...] Arana MD 2015 at 15:14 EDT Tel [phone], Service support [phone], CC: Jailene Mayfield [employer] Department Supervisor: Signed 06-Feb-2016 Spirometry (26934) Comments: see scanned document of test done to see results reviewed today with patient Result: 20-May-2014 Cerv Spine 4 or 5 Views Result: Comments: See Note; NOTES: [facility] Imaging Services [address] [place] [address] Radiology Report MR#: [id number] Acct: [id number] Name: WILBERT SEGURA Rep #: [id number] : 1950 M 64 From: Liu Fatima DO PCP: Jewell Hadley MD Status: REG CLI Study: Cerv Spine 4 or 5 Views Date of Exam: 05/20/14 Exam# [id number] Ordering Dr: Jailene Mayfield STUDY: X-RAY - [...] Liu Fatima DO at 9:03 EDT Tel [phone], Service support [phone], CC: Jailene Mayfield; Jewell Hadley MD [employer] Department Supervisor: Signed Family History Unknown Family Member Name [...] 0.00 cm Results Date Description Value Details 44-Qdo-735418:28 CREATININE FINGERSTICK Comments: [facility] [address] [place] [address] CREATININE WB 0.8 mg/dL (Normal) Range: 0.70-1.30 [...] ANTI-ABIGAIL <0.2 {AI} (Normal) Range: 0.0-0.9 :41 Ewin-Ihmvufwrgym-89 AB Comments: [facility] (refer to report for specific site)refer to report for address and phone number ANTISCLER <0.2 {AI} (Normal) Range: 0.0-0.9 :41 ANTINUCLEAR ANTIBODIES DIRECT Comments: [facility] (refer to report for specific site)refer to report for address and phone number ALISON-DIRECT Positive (Abnormal) Comments: Performed at: [address] [id number] Director: Ger Gonzalez PhD, Phone: [phone] :41 CBC W/Diff, Automated Comments: [facility] [address] [place] [address], [address] Absolute Lymph 1.86 {X10_3/ul} (Normal) Range: [...] 4.6-6.2 WBC 8.4 K/mm3 (Normal) Range: 4.4-11.0 7-Mcz-777419:41 CCP IgG Antibodies Comments: [facility] (refer to report for specific site)refer to report for address and phone number ANTI-CCP 360802 5 {units} (Normal) Range: 0-19 Comments: Negative [...] Range: 14-44 :41 Comprehensive Metabolic Profil Comments: [facility] [address] [place], [place], [id number] GAP 5 (Normal) Range: 5-15 CO2 29.0 [...] Comments: Please note revised GLUCOSE reference range bfatpnean38/02/2018. 0-Krf-309282:41 Hep B Surface Antibodies Comments: [facility] (refer to report for specific site)refer to report for address and phone number Hep B Arpita AB Non Reactive (Normal) Comments: Non Reactive: Inconsistent with immunity, less than 10 mIU/mL Reactive: Consistent with immunity, greater than 9.9 mIU/ mL 1-Prx-988729:41 Hepatitis B Surface Ag Comments: [facility] (refer to report for specific site)refer to report for address and phone number HB SURF AG Negative (Normal) Comments: Performed at: - [facility] [id number] Director: Ger Gonzalez PhD, Phone: [phone] at: - [address] [id number] Director: Raghu Bowles PhD, Phone: [phone] at: - [address] [id number] Director: Glenn Armioj MD, Phone: [phone] :41 Hepatitis C Antibodies Comments: [facility] (refer to report for specific site)refer to report for address and phone number HEP C AB <0.1 {s/co_ratio} Range: 0.0-0.9 (Normal) Comments: Negative: < 0.8 Indeterminate: 0.8 - 0.9 Positive: > 0.9 The CDC recommends that a positive HCV antibody result be followed up with a HCV Nucleic Acid Amplification test (363910). : HLA B27 Negative (Normal) Comments: [facility] (refer to report for specific site)refer to report for address and phone number 41 Comments: HLA-B*27 AnyqkhnpR57 allele interpretation for all loci based on IMGT/HLAdatabase version 3.27This test was developed and its performance characteristicsdetermined by [facility]. It has not been cleared o r approvedby the Food and Drug Administration.[facility] Lab CLIA ID Number [id number] test was performed using PCR (Polymerase ChainReaction)/SSOP (Sequence Specific Oligonucleotide Probes)technique. SBT (Sequence Based Typing) and/or SSP(Sequence Specific Primers) may be used as supplementalmethods when necessary. Please contact [facility] CustomerService at if you have any questions. Director of [facility] Laboratory Dr Raghu Bowles, PhD :41 Protein+Creatinine Ratio,Urine Comments: [facility] [address] [facility]. [place], [place], [id number] PROT:CRE RATIO 102 {mg/g_CRE} (Normal) Range: 0-200 PROTEIN,UR.RAN. 17.0 mg/dL (Abnormal) UR CREAT 166.00 mg/dL (Normal) :41 Urinalysis, Routine (Dipstick) Comments: How was Urine Obtained? [facility] [address] [facility] [place] [place], [address] LEUK ESTERASE 25 /ul (Abnormal) OCCULT BLOOD-UR 10 /ul (Abnormal) NITRITE UR Negative (Normal) UROBILI 4 mg/dL (Abnormal) PROT DIPSTX Negative mg/dL (Normal) pH UR 7.0 (Normal) Range: 5.0 - 8.0 SP.GR. DIPSTX 1.015 (Normal) Range: 1.002-1.030 KETONE UR Negative mg/dL (Normal) BILIRUBIN URINE Negative mg/dL (Normal) GLUCOSE, UR Normal mg/dL (Normal) CLARITY Clear (Normal) COLOR Yellow (Normal) 5-Mup-241776:35 CBC, Platelets & Auto Diff Comments: PATIENT NOT FASTINGPERFORMED BY: [facility] Mjriqt5165 [facility] [id number] ([id number]) Immature Grans (Abs) 0.0 {x10E3/uL} (Normal) Range: [...] 4.14-5.80 WBC 8.2 {x10E3/uL} (Normal) Range: 3.4-10.8 44-Bqn-933484:24 Systemic Lupus Profile A Comments: PATIENT NOT FASTINGPERFORMED BY: [facility]6[address] [facility] [id number] Anti-DNA (DS) Ab Qn 16 {IU/mL} Range: 0-9 (Abnormal) Comments: Negative <5 Equivocal 5 - 9 Positive >9 Sjogren's Anti-SS-B <0.2 {AI} (Normal) Range: 0.0-0.9 Sjogren's Anti-SS-A <0.2 {AI} (Normal) Range: 0.0-0.9 Antichromatin Antibodies 0.3 {AI} (Normal) Range: 0.0-0.9 RA Latex Turbid. <10.0 {IU/mL} Range: 0.0-13.9 (Normal) Diaz Antibodies <0.2 {AI} (Normal) Range: 0.0-0.9 KELLER MACHINE OPERATOR Antibodies <0.2 {AI} (Normal) Range: 0.0-0.9 17-May-2018 Written Authorization WAR (Normal) Comments: PATIENT NOT FASTINGPERFORMED BY: [facility]6[address] [facility] [id number] 11:24 Comments: Written Authorization Received.Authorization received from SHALINI VELAZQUEZ LPN [id number] by Yoli Mcginnis 38-Yam-339572:24 HGB A1C ([id number]) Comments: PATIENT NOT FASTINGPERFORMED BY: [facility]6[address] [facility] [id number] Hemoglobin A1c 5.7 % (Abnormal) Range: 4.8-5.6 Comments: . Pre-diabetes: 5.7 - 6.4 Diabetes: >6.4 Glycemic control for adults with diabetes: <7.0 95-Uyr-664069:24 EBV ACUTE PFOF IgG/IgM Comments: PATIENT NOT FASTINGPERFORMED BY: [facility]6[address] [facility] [id number] ([id number]) Interpretation: SPRCS (Normal) Comments: EBV Interpretation Chart [...] <36.0 Equivocal 36.0 - 43.9 Positive >43.9 88-Yzk-046277:24 CMV IGM ANTBDY (66889) Comments: PATIENT NOT FASTINGPERFORMED BY: [facility]6370 [facility] [id number] Cytomegalovirus (CMV) Ab, IgM <30.0 AU/mL (Normal) Range: 0.0-29.9 Comments: Negative <30.0 Equivocal 30.0 - 34.9 Positive >34.9 A positive result is generally indicative of acute infection, reactivation or persistent IgM production. 20-Rpj-099104:24 CALCIFIDIOL (07497) VIT D 25 Comments: PATIENT NOT FASTINGPERFORMED BY: [facility]6370 [facility] [id number] Vitamin D, 25-Hydroxy 63.7 ng/mL (Normal) Range: 30.0-100.0 Comments: Vitamin D deficiency has been defined by the [place] of[place]icine and an Endocrine Society practice guideline as alevel of serum 25-OH vitamin D less than 20 ng/mL (1,2).The Endocrine Society went on to further define vitamin Dinsufficiency as a level between 21 and 29 ng/mL (2).1. IOM ([place] of Medicine). 2010. Dietary reference intakes for calcium and D. [place]: The National Academies Press.2. Clifton MF, Robbi MADRID, Ladarius GONZALES, et al. Evaluation, treatment, and prevention of vitamin D deficiency: an Endocrine Society clinical practice guideline. JCEM. 2010; 96(7):1911-30. 30-Wow-829165:24 VITAMIN B-12 (CYANOCOBALAMIN) Comments: PATIENT NOT FASTINGPERFORMED BY: CB [facility] Jkslsp4832 [address] Road[address]ublin [place] [id number] ([id number]) Vitamin B12 476 pg/mL (Normal) Range: 232-1245 68-Pxs-640858:24 TSH (87558) Comments: PATIENT NOT FASTINGPERFORMED BY: CB [facility] Wdqhst04[address] Road[address]ublin [place] [id number] TSH 0.509 {uIU/mL} (Normal) Range: 0.450-4.500 89-Nnk-484544:24 SED RATE ERYTHROCYTE (87421) Comments: PATIENT NOT FASTINGPERFORMED BY: CB [facility] Cljlun4676 Perry RoadDublin [place] [id number] Sedimentation Rate-Westergren 2 mm/h (Normal) Range: 0-30 17-Xov-508160:24 METABOLIC PANEL, COMPREHENSIVE Comments: PATIENT NOT FASTINGPERFORMED BY: CB [facility] Tdoorm33[address] Road[address]ublin [place] [id number] ([address]) ALT (SGPT) 15 [iU]/L (Normal) Range: 0-44 [...] 8-27 Glucose 101 mg/dL (Abnormal) Range: 65-99 25-Xtn-729225:24 C-REACTIVE PROTEIN (52288) Comments: PATIENT NOT FASTINGPERFORMED BY: [employer]70 [facility] [id number] C-Reactive Protein, Quant 5.5 mg/L (Abnormal) Range: 0.0-4.9 08-Qbg-900637:24 CBC (AUTO) (83635) Comments: PATIENT NOT FASTINGPERFORMED BY: [employer]70 [facility] [id number] Platelets 232 {x10E3/uL} (Normal) Range: 150-379 RDW 13.4 % (Normal) Range: 12.3-15.4 MCHC 34.2 g/dL (Normal) Range: 31.5-35.7 MCH 33.3 pg (Abnormal) Range: 26.6-33.0 MCV 97 fL (Normal) Range: 79-97 Hematocrit 47.9 % (Normal) Range: 37.5-51.0 Hemoglobin 16.4 g/dL (Normal) Range: 13.0-17.7 RBC 4.92 {x10E6/uL} (Normal) Range: 4.14-5.80 WBC 7.0 {x10E3/uL} (Normal) Range: 3.4-10.8 :24 ALISON (ANTINUCLEAR ANTIBODY) Comments: PATIENT NOT FASTINGPERFORMED BY: [facility] [id number] ([address]) ALISON Direct Positive (Abnormal) :41 MAGNESIUM (34517) Comments: PATIENT NOT FASTINGPERFORMED BY: [facility]6370 [facility] [id number] Magnesium 2.2 mg/dL (Normal) Range: 1.6-2.3 52-Xtr-06129:41 TSH (59157) Comments: PATIENT NOT FASTINGPERFORMED BY: [facility]6370 [facility] [id number] TSH 1.070 {uIU/mL} (Normal) Range: 0.450-4.500 96-Ufq-86097:41 CBC, Platelets & Auto Diff Comments: PATIENT NOT FASTINGPERFORMED BY: [place] 4858970 [facility] [id number] (99379) Immature Grans (Abs) 0.0 {x10E3/uL} (Normal) Range: [...] Panel, Comprehensive Comments: PATIENT NOT FASTINGPERFORMED BY: [facility] JerseyOnwecv9516 [facility] [id number] (13602) ALT (SGPT) 16 [iU]/L (Normal) Range: 0-44 [...] 8-27 Glucose 99 mg/dL (Normal) Range: 65-99 39-Mri-301880:20 HgA1C , Office (39074) HgA1C , Office 5.5 % (Normal) Range: 4.6 - 7.1 :31 LIPID PANEL (81178) Comments: PATIENT WAS FASTINGPERFORMED BY: [facility]6370 [facility] [id number] LDL/HDL Ratio 2.1 {ratio_units} (Normal) Range: 0.0-3.6 [...] 173 mg/dL (Normal) Range: 100-199 :31 CALCIFEDIOL (67260) Comments: PATIENT WAS FASTINGPERFORMED BY: [facility] FixMesilla Valley HospitalVhrahg1866 [facility] [id number] Vitamin D, 25-Hydroxy 54.2 ng/mL (Normal) Range: 30.0-100.0 Comments: Vitamin D deficiency has been defined by the [place] of[place] and an Endocrine Society practice guideline as alevel of serum 25-OH vitamin D less than 20 ng/mL (1,2).The Endocrine Society went on to further define vitamin Dinsufficiency as a level between 21 and 29 ng/mL (2).1. IOM ([place] of [place]). 2010. Dietary reference intakes for calcium and D. [place]: The National Academies Press.2. Clifton MF, Robbi NC, Ladarius GONZALES, et al. Evaluation, treatment, and prevention of vitamin D deficiency: an Endocrine Society clinical practice guideline. JCEM. 2010; 96(7):1911-30. :31 CBC, Platelets & Auto Diff Comments: PATIENT WAS FASTINGPERFORMED BY: [facility]6370 [facility] [id number] (72697) Immature Grans (Abs) 0.0 {x10E3/uL} (Normal) Range: [...] 6.4 {x10E3/uL} (Normal) Range: 3.4-10.8 :31 TSH (97919) Comments: PATIENT WAS FASTINGPERFORMED BY: [facility]CoRe[facility] South JerseyRewgqp0990 [facility] [id number] TSH 0.564 {uIU/mL} (Normal) Range: 0.450-4.500 16-Xtx-15615:31 Metabolic Panel, Comprehensive Comments: PATIENT WAS FASTINGPERFORMED BY: Stitch FixRehabilitation Hospital of South JerseyYljdzb8135 [facility] [id number] (18306) ALT (SGPT) 11 [iU]/L (Normal) Range: 0-44 [...] Glucose, Serum 110 mg/dL (Abnormal) Range: 65-99 18-Xve-071358:03 CALCIFEDIOL (90424) Comments: today; PATIENT NOT FASTINGPERFORMED BY: [facility]CoRe[facility] South JerseySeasdq4150 [facility] [id number] Vitamin D, 25-Hydroxy 51.0 ng/mL (Normal) Range: 30.0-100.0 Comments: Vitamin D deficiency has been defined by the [place] of[place] and an Endocrine Society practice guideline as alevel of serum 25-OH vitamin D less than 20 ng/mL (1,2).The Endocrine Society went on to further define vitamin Dinsufficiency as a level between 21 and 29 ng/mL (2).1. IOM ([place]). 2010. Dietary reference intakes for calcium and D. [place]: The National Academies Press.2. Clifton MF, Robbi NC, Ladarius GONZALES, et al. Evaluation, treatment, and prevention of vitamin D deficiency: an Endocrine Society clinical practice guideline. JCEM. 2010; 96(7):1911-30. 95-Blh-381844:03 VITAMIN B12 AND FOLATES Comments: today; PATIENT NOT FASTINGPERFORMED BY: [facility]De[facility]erville Community [facility] [id number] (99617) Folate (Folic Acid), Serum 10.2 ng/mL (Normal) Comments: A serum folate concentration of less than 3.1 ng/mL isconsidered to represent clinical deficiency. Vitamin B12 1184 pg/mL (Abnormal) Range: 211-946 00-Jen-844324:03 MAGNESIUM (10212) Comments: today; PATIENT NOT FASTINGPERFORMED BY: [facility] [id number] Magnesium, Serum 2.1 mg/dL (Normal) Range: 1.6-2.3 6-Rgg-791570:09 T4, FREE (THYROXINE) (46407) Comments: PATIENT NOT FASTINGPERFORMED BY: [facility]6370 [facility] [id number] T4,Free(Direct) 1.03 ng/dL (Normal) Range: 0.82-1.77 8-Ivc-473789:09 T3, FREE (TRIDOTHYRONINE) (88337) Comments: PATIENT NOT FASTINGPERFORMED BY: [facility] [id number] Triiodothyronine,Free,Serum 3.7 pg/mL (Normal) Range: 2.0-4.4 8-Duf-413921:09 TSH (THYROID STIMULATING Comments: PATIENT NOT FASTINGPERFORMED BY: [facility]6370 [facility] [id number] HORMONE) (38651) TSH 0.464 {uIU/mL} (Normal) Range: 0.450-4.500 48-Fnu-821311:47 CBC, Platelets & Auto Diff Comments: PATIENT NOT FASTINGPERFORMED BY: [facility]6370 [facility] [id number] (00085) Immature Grans (Abs) 0.0 {x10E3/uL} (Normal) Range: [...] 4.14-5.80 WBC 6.9 {x10E3/uL} (Normal) Range: 3.4-10.8 06-Jsq-891884:47 CPK TOTAL & ISOENZYMES (06837) Comments: PATIENT NOT FASTINGPERFORMED BY: [employer]70 [facility] [id number] CK-BB 0 % (Normal) CK-MB 0 % (Normal) Range: 0-3 Macro Type 1 0 % (Normal) CK-MM 100 % (Normal) Range: 97-100 Macro Type 2 0 % (Normal) Creatine Kinase,Total,Serum 182 U/L (Normal) Range: 24-204 :47 CALCIFEDIOL (81688) Comments: PATIENT NOT FASTINGPERFORMED BY: [employer]70 [facility] [id number] Vitamin D, 25-Hydroxy 45.7 ng/mL (Normal) Range: 30.0-100.0 Comments: Vitamin D deficiency has been defined by the [place] of[place]icine and an Endocrine Society practice guideline as alevel of serum 25-OH vitamin D less than 20 ng/mL (1,2).The Endocrine Society went on to further define vitamin Dinsufficiency as a level between 21 and 29 ng/mL (2).1. IOM ([place] of Medicine). 2010. Dietary reference intakes for calcium and D. [place]: The National Academies Press.2. Clifton MF, Robbi MADRID, Ladarius GONZALES, et al. Evaluation, treatment, and prevention of vitamin D deficiency: an Endocrine Society clinical practice guideline. JCEM. 2010; 96(7):1911-30. :47 TSH (THYROID STIMULATING Comments: PATIENT NOT FASTINGPERFORMED BY: [employer] Jaxgqd7535 ViaBillDublin [place] [id number] HORMONE) (06858) TSH 0.367 {uIU/mL} (Abnormal) Range: 0.450-4.500 :42 PSA (Medicare - G0103) Comments: today; PATIENT NOT FASTINGPERFORMED BY: CB [facility] Qtjvaf0599 LgDb.comblin [place] [id number]; OV 01/25/17 (03310) Prostate Specific Ag, 0.6 ng/mL (Normal) Range: 0.0-4.0 Serum Comments: Mónica ECLIA methodology. .According to the [place] U[employer] Association, Serum PSA shoulddecrease and remain [...] Auto Diff Comments: PATIENT WAS FASTINGPERFORMED BY: Connect HQ LabAproposerp Uvvkbi0088 Perry HologicDublin [place] [id number] (24248) Immature Grans (Abs) 0.0 {x10E3/uL} (Normal) Range: [...] 4.14-5.80 WBC 7.2 {x10E3/uL} (Normal) Range: 3.4-10.8 18-Xrf-848708:10 TSH (59106) Comments: PATIENT WAS FASTINGPERFORMED BY: [facility] Hxnpew9086 [facility] [id number] TSH 0.537 {uIU/mL} (Normal) Range: 0.450-4.500 12-Ocn-038251:10 Metabolic Panel, Comprehensive Comments: PATIENT WAS FASTINGPERFORMED BY: [facility] Yngscc9230 [facility] [id number]; ov 01/21 (37477) ALT (SGPT) 16 [iU]/L (Normal) Range: 0-44 [...] Glucose, Serum 83 mg/dL (Normal) Range: 65-99 57-Yzt-066237:10 Lipid Panel (10307) Comments: PATIENT WAS FASTINGPERFORMED BY: [facility] Bdbfqm7002 [facility] [id number] LDL/HDL Ratio 2.0 {ratio_units} (Normal) Range: 0.0-3.6 Comments: LDL/HDL Ratio Men Women 1/2 Avg.Risk 1.0 1.5 Av g.Risk 3.6 3.2 2X Avg.Risk 6.2 5.0 3X Avg.Risk 8.0 6.1 LDL Cholesterol Calc 106 mg/dL (Abnormal) Range: 0-99 VLDL Cholesterol Micah 18 mg/dL (Normal) Range: 5-40 HDL Cholesterol 52 mg/dL (Normal) Triglycerides 88 mg/dL (Normal) Range: 0-149 Cholesterol, Total 176 mg/dL (Normal) Range: 100-199 29-Tzx-118000:10 CALCIFEDIOL (80366) Comments: PATIENT WAS FASTINGPERFORMED BY: LabCoRehabilitation Hospital of South JerseyJkosge8371 [facility] [id number] Vitamin D, 25-Hydroxy 42.8 ng/mL (Normal) Range: 30.0-100.0 Comments: Vitamin D deficiency has been defined by the [place] ofUc [facility] Hospitalcine and an Endocrine Society practice guideline as alevel of serum 25-OH vitamin D less than 20 ng/mL (1,2).The Endocrine Society went on to further define vitamin Dinsufficiency as a level between 21 and 29 ng/mL (2).1. IOM ([place] of Medicine). 2010. Dietary reference intakes for calcium and D. [place]: The National Academies Press.2. Clifton MF, Robbi MADRID, Ladarius GONZALES, et al. Evaluation, treatment, and prevention of vitamin D deficiency: an Endocrine Society clinical practice guideline. JCEM. 2010; 96(7):1911-30. 39-Akn-92658:50 Basic Metabolic Profile (BMP) Comments: 'TROP' Serial specimen #1, #2, #3, or #4: [address] [place] [address] Tjegxkwzti3102 [address] [place], [place], [id number] GAP 3 (Abnormal) Range: 5-15 CO2 26.0 [...] <126 mg/dLsuggests IMPAIRED HOMEOSTASIS per A.D.A. criteria. 47-Sno-12130:50 CBC W/Diff, Automated Comments: [facility] Mfpybfqkbh0345 [address]. [place], [place], [address] ; another doc Absolute Lymph 1.21 {X10_3/ul} [...] Serial specimen #1, #2, #3, or #4: [address] [place] [address] Waicnxxfqi3586 [place], [address] TROPONIN-I < 0.02 ng/mL (Normal) Comments: TROPONIN-I EXPECTED VALUES <0.05 NEGATIVE 0.06 - 0.59 AT RISK OF WI > OR = 0.60 SUGGEST WI 7-Zas-383521:40 TESTOSTERONE FREE (50187) Comments: PATIENT NOT FASTINGPERFORMED BY: [employer] [address] [id number] Free Testosterone(Direct) 5.8 pg/mL (Abnormal) Range: 6.6-18.1 56-Sjd-488305:40 TSH (THYROID STIMULATING Comments: PATIENT NOT FASTINGPERFORMED BY: [employer] [facility] [id number] BY: Stitch Fix[address] [id number] HORMONE) (29809) TSH 0.600 {uIU/mL} (Normal) Range: 0.450-4.500 70-Nhm-588956:40 TESTOSTERONE ,TOT/FREE Comments: PATIENT NOT FASTINGPERFORMED BY: [employer] [place] [address] [id number] BY: Stitch Fix[address] [id number] (79027) Free Testosterone(Direct) 5.2 pg/mL (Abnormal) Range: 6.6-18.1 Comment: TESTM (Normal) Comments: Adult male reference interval is based on a population of lean malesup to 40 years old. Testosterone, Serum 275 ng/dL (Abnormal) Range: 348-1197 :40 PT (PROTHROMBIN TIME) Comments: PATIENT NOT FASTINGPERFORMED BY: [facility] HospitalAproposeSteven Ville 5379870 [facility] [id number] BY: [address] [id number] (93403) Prothrombin Time 10.4 {sec} (Normal) Range: 9.1-12.0 INR 1.0 (Normal) Range: 0.8-1.2 Comments: Reference interval is for non-anticoagulated patients. . Suggested INR therapeutic range for Vitamin K anta gonist therapy: Standard Dose (moderate intensity therapeutic range): 2.0 - 3.0 Higher intensity therapeutic range 2.5 - 3.5 :40 CBC, PLATELETS & AUT DIFF Comments: PATIENT NOT FASTINGPERFORMED BY: Stitch FixRehabilitation Hospital of South JerseyWbtrxf1298 [facility] [id number] BY: Stitch FixAnna Ville 162237 [facility] [id number] (98752) Immature Grans (Abs) 0.0 {x10E3/uL} (Normal) Range: [...] Panel, Basic Comments: PATIENT NOT FASTINGPERFORMED BY: Stitch FixSteven Ville 5379870 [facility] [id number] BY: Takes[address] [id number] (23502) Calcium, Serum 8.9 mg/dL (Normal) Range: 8.6-10.2 [...] Metabolic Panel, Comments: PATIENT NOT FASTINGPERFORMED BY: Stitch FixSteven Ville 5379870 [facility] [id number] Information: [id number] Comprehensive (64344) ALT (SGPT) 11 [iU]/L (Normal) Range: 0-44 [...] (THYROID STIMULATING Comments: PATIENT NOT FASTINGPERFORMED BY: [employer] Modo LabsCrawley Memorial Hospital [id number] HORMONE) (21318) TSH 0.483 {uIU/mL} (Normal) Range: 0.450-4.500 :46 MAGNESIUM (36860) Comments: PATIENT NOT FASTINGPERFORMED BY: [employer] Mewsbf6390 [address] [facility]WestDaily AisleCrawley Memorial Hospital [id number] Magnesium, Serum 1.9 mg/dL (Normal) Range: 1.6-2.3 8-Vuz-327903:53 MICROALBUMIN: CREATININE RATIO Comments: PATIENT NOT FASTINGPERFORMED BY: [employer] [facility] [id number] (57835) AND (45466) Microalb/Creat Ratio 3.2 {mg/g_creat} (Normal) Range: 0.0-30.0 Microalbumin, Urine 4.2 ug/mL (Normal) Range: 0.0-17.0 Creatinine, Urine 130.8 mg/dL (Normal) Range: 22.0-328.0 :53 URINALYSIS (35052) Comments: PATIENT NOT FASTINGPERFORMED BY: [employer]ign[employer] TherapeuticsNovant Health/NHRMC [id number] Information: [id number] Microscopic Examination MICNIP (Normal) Comments: Microscopic not indicated and not performed. Nitrite, Urine Negative (Normal) Urobilinogen,Semi-Qn 1.0 mg/dL (Normal) Range: 0.2-1.0 Bilirubin Negative (Normal) Occult Blood Negative (Normal) Ketones Negative (Normal) Glucose Negative (Normal) Protein Negative (Normal) WBC Esterase Negative (Normal) Appearance Clear (Normal) Urine-Color Yellow (Normal) pH 7.0 (Normal) Range: 5.0-7.5 Specific [place] 1.027 (Normal) Range: 1.005-1.030 :56 PSA (PROSTATE SPECIFIC Comments: PATIENT WAS FASTINGPERFORMED BY: TecnobluCrawley Memorial Hospital [id number] ANTIGEN) (V76.44) Prostate Specific Ag, 0.6 ng/mL (Normal) Range: 0.0-4.0 Serum Comments: The [employer] ECLIA methodology. .According to the [place] Urological Association, Serum PSA shoulddecrease and remain [...] PANEL, COMPREHENSIVE Comments: PATIENT WAS FASTINGPERFORMED BY: [employer]70 [facility]BillNov[facility] [id number] (95355) ALT (SGPT) 12 [iU]/L (Normal) Range: 0-44 [...] mg/dL (Abnormal) Range: 65-99 01-Dec-20158:56 LIPID PANEL (13888) Comments: PATIENT WAS FASTINGPERFORMED BY: [facility]6370 [facility] [id number] LDL/HDL Ratio 2.4 {ratio_units} (Normal) Range: 0.0-3.6 [...] auto diff Comments: PATIENT WAS FASTINGPERFORMED BY: [employer] Engineeringlin6370 [facility] [id number] Information: [id number] (90107) Immature Grans (Abs) 0.0 {x10E3/uL} (Normal) Range: [...] 7.3 {x10E3/uL} (Normal) Range: 3.4-10.8 :56 CALCIFIDIOL (29187) VIT D 25 Comments: PATIENT WAS FASTINGPERFORMED BY: OdinOtvet6370 Perry RoadDublin [place] [id number] Vitamin D, 25-Hydroxy 45.0 ng/mL (Normal) Range: 30.0-100.0 Comments: Vitamin D deficiency has been defined by the [place] of[place]icine and an Endocrine Society practice guideline as alevel of serum 25-OH vitamin D less than 20 ng/mL (1,2).The Endocrine Society went on to further define vitamin Dinsufficiency as a level between 21 and 29 ng/mL (2).1. IOM ([place] of Medicine). 2010. Dietary reference intakes for calcium and D. [place]u [place]: The [employer] Press.2. Robbi Morales, Ladarius GONZALES, et al. Evaluation, treatment, and prevention of vitamin D deficiency: an Endocrine Society clinical practice guideline. JCEM. 2010; 96(7):1911-30. -:20 HgA1C , Office (30591) HgA1C , Office 5.9 % (Normal) Range: 4.6 - 7.1 11-Kwj-572354:36 Vitamin B-12 (cyanocobalamin) Comments: PATIENT NOT FASTINGPERFORMED BY: [facility] Ivnsmv2762 [address] [facility] Rehabilitation Hospitalblin [place] [id number] (67550) Vitamin B12 1444 pg/mL (Abnormal) Range: 211-946 :36 CALCIFIDIOL (27547) VIT D 25 Comments: PATIENT NOT FASTINGPERFORMED BY: [facility] Atrvow2603 Perry RoadDublin [place] [id number] Vitamin D, 25-Hydroxy 32.0 ng/mL (Normal) Range: 30.0-100.0 Comments: Vitamin D deficiency has been defined by the [place] ofMedicine and an Endocrine Society practice guideline as alevel of serum 25-OH vitamin D less than 20 ng/mL (1,2).The Endocrine Society went on to further define vitamin Dinsufficiency as a level between 21 and 29 ng/mL (2).1. IOM ([place] of Medicine). 2010. Dietary reference intakes for calcium and D. [place]u [place]: The [employer] Press.2. Robbi Morales, Ladarius GONZALES, et al. Evaluation, treatment, and prevention of vitamin D deficiency: an Endocrine Society clinical practice guideline. JCEM. 2010; 96(7):1911-30. :36 TSH (57805) Comments: PATIENT NOT FASTINGPERFORMED BY: LabCoRehabilitation Hospital of South JerseyXcigyz7730 [facility] [id number] Information: [id number] TSH 0.575 {uIU/mL} (Normal) Range: 0.450-4.500 :51 CBC With Differential/Platelet Comments: PATIENT WAS FASTINGPERFORMED BY: LabCoRehabilitation Hospital of South JerseyEyhfyq1674 [facility] [id number] Information: [id number] Immature Grans (Abs) 0.0 {x10E3/uL} (Normal) Range: [...] Panel (14) Comments: PATIENT WAS FASTINGPERFORMED BY: [employer]70 [facility] [id number] ALT (SGPT) 15 [iU]/L (Normal) Range: 0-44 [...] With LDL/HDL Comments: PATIENT WAS FASTINGPERFORMED BY: OdinOtvet6370 [facility] [id number] Ratio LDL/HDL Ratio 2.1 {ratio_units} Range: 0.0-3.6 [...] pg/mL (Normal) Comments: PATIENT WAS FASTINGPERFORMED BY: ModalityHarl[facility] Hospital [id number] 1:51 Range: 211-946 Vitamin D, 25-Hydroxy 40.7 ng/mL (Normal) Comments: PATIENT WAS FASTINGPERFORMED BY: TecnobluCrawley Memorial Hospital [id number] 1:51 Range: 30.0-100.0 Comments: Vitamin D deficiency has been defined by the [place] ofUc [facility] Chester Hospitalcine and an Endocrine Society practice guideline as alevel of serum 25-OH vitamin D less than 20 ng/mL (1,2).The Endocrine Society went on to further define vitamin Dinsufficiency as a level between 21 and 29 ng/mL (2).1. IOM ([place] of [place]). 2010. Dietary reference intakes for calcium and D. [place]: The National Academies Press.2. Clifton MF, Robbi MADRID, Ladarius GONZALES, et al. Evaluation, treatment, and prevention of vitamin D deficiency: an Endocrine Society clinical practice guideline. JCEM. 2010; 96(7):1911-30. 58-Lgr-108962:22 CALCIFIDIOL (00686) VIT D Comments: PATIENT NOT FASTINGPERFORMED BY: [employer]70 LgDb.comCrawley Memorial Hospital [id number] Information: [id number] 25 Vitamin D, 25-Hydroxy 31.8 ng/mL (Normal) Range: 30.0-100.0 Comments: Vitamin D deficiency has been defined by the [place] of[place]icine and an Endocrine Society practice guideline as alevel of serum 25-OH vitamin D less than 20 ng/mL (1,2).The Endocrine Society went on to further define vitamin Dinsufficiency as a level between 21 and 29 ng/mL (2).1. IOM ([place] of [place]). 2010. Dietary reference intakes for calcium and D. [place]u [place]: The National Academies Press.2. Clifton MF, Robbi MADRID, Ladarius GONZALES, et al. Evaluation, treatment, and prevention of vitamin D deficiency: an Endocrine Society clinical practice guideline. JCEM. 2010; 96(7):1911-30. One Specimen SPRCS (Normal) Comments: PATIENT NOT FASTINGPERFORMED BY: CurbStandton1447 [facility] [id number] BY: Pric[facility] EngineResearch [facility] Center [id number] 1:25 Identifier Comments: The specimen received included only one patient identifier on theprimary collection container. Our laboratory accrediting agencystates All primary specimen containers must be labeled with 2identifiers at the time of collection. 83-Jmm-870140:25 THIAMINE (B-1) (37317) Comments: PATIENT NOT FASTINGPERFORMED BY: [employer] Sekdzsjgan5939 [facility] [id number] BY: OdinOtvet6370 LgDb.comCrawley Memorial Hospital [id number] Vit. B1, Whole Blood 159.7 nmol/L (Normal) Range: 66.5-200.0 17-Bxd-718543:08 CBC (Auto) (42531) Comments: PATIENT WAS FASTINGPERFORMED BY: [employer]70 [facility]Research [facility] Center [id number] Information: [id number] Platelets 202 {x10E3/uL} (Normal) Range: 150-379 RDW 12.6 % (Normal) Range: 12.3-15.4 MCHC 34.3 g/dL (Normal) Range: 31.5-35.7 MCH 31.3 pg (Normal) Range: 26.6-33.0 MCV 91 fL (Normal) Range: 79-97 Hematocrit 44.0 % (Normal) Range: 37.5-51.0 Hemoglobin 15.1 g/dL (Normal) Range: 12.6-17.7 RBC 4.83 {x10E6/uL} (Normal) Range: 4.14-5.80 WBC 8.2 {x10E3/uL} (Normal) Range: 3.4-10.8 03-Ypd-911454:08 PTT (Activated Partial Comments: PATIENT WAS FASTINGPERFORMED BY: [place] 4858970 [facility] [id number] Thromboplastin Time) (96184) aPTT 31 {sec} (Normal) Range: 24-33 Comments: This test has not been validated for monitoring unfractionated heparintherapy. aPTT-based therapeutic ranges for unfractionated heparintherapy have not been established. For general guidelines onHeparin monitoring, refer to the [facility] Directory of Services. 87-Dgg-385543:08 PT (Prothrobim Time) (32704) Comments: PATIENT WAS FASTINGPERFORMED BY: [facility]6370 [facility] [id number] Prothrombin Time 10.4 {sec} (Normal) Range: 9.1-12.0 INR 1.0 (Normal) Range: 0.8-1.2 Comments: Reference interval is for non-anticoagulated patients. . Suggested INR therapeutic range for Vitamin K anta gonist therapy: Standard Dose (moderate intensity therapeutic range): 2.0 - 3.0 Higher intensity therapeutic range 2.5 - 3.5 49-Zxb-628787:09 CALCIFIDIOL (47422) VIT D 25 Comments: PATIENT WAS FASTINGPERFORMED BY: [place] 4858970 [facility] [id number] Vitamin D, 25-Hydroxy 15.8 ng/mL (Abnormal) Range: 30.0-100.0 Comments: Vitamin D deficiency has been defined by the [place] of[place]icine and an Endocrine Society practice guideline as alevel of serum 25-OH vitamin D less than 20 ng/mL (1,2).The Endocrine Society went on to further define vitamin Dinsufficiency as a level between 21 and 29 ng/mL (2).1. IOM ([place] of [place]). 2010. Dietary reference intakes for calcium and D. [place]u [place]: The National Academies Press.2. Clifton MF, Robbi MADRID, Ladarius GONZALES, et al. Evaluation, treatment, and prevention of vitamin D deficiency: an Endocrine Society clinical practice guideline. JCEM. 2010; 96(7):1911-30. 16-Qer-063728:09 Vitamin B-12 (cyanocobalamin) Comments: PATIENT WAS FASTINGPERFORMED BY: [employer] LabCoZoodak Xwixdv9573 [facility] [id number] (58036) Vitamin B12 399 pg/mL (Normal) Range: 211-946 40-Mlw-699115:09 METABOLIC PANEL, Comments: PATIENT WAS FASTINGPERFORMED BY: [facility] Icqnoh7216 [facility] [id number] Information: [id number],2ND ORDER COMPREHENSIVE (82388) ALT (SGPT) 15 [iU]/L (Normal) Range: 0-44 [...] Glucose, Serum 86 mg/dL (Normal) Range: 65-99 75-Ish-238939:09 LIPID PANEL (97262) Comments: PATIENT WAS FASTINGPERFORMED BY: [employer] [facility] [id number] LDL/HDL Ratio 2.0 {ratio_units} (Normal) Range: 0.0-3.6 [...] Cholesterol, Total 132 mg/dL (Normal) Range: 100-199 1-Nih-685458:05 Microscopic Examination Comments: PATIENT NOT FASTINGPERFORMED BY: Stitch Fix Ezdkuj3610 [facility] [id number] Bacteria Few (Normal) Mucus Threads Present (Normal) Epithelial Cells (non renal) 0-10 {/hpf} (Normal) Range: 0 - 10 RBC 0-2 {/hpf} (Normal) Range: 0 - 2 WBC 6-10 {/hpf} (Abnormal) Range: 0 - 5 5-Avf-911826:05 URINALYSIS (65186) Comments: PATIENT NOT FASTINGPERFORMED BY: Stitch Fix Godjnd5260 [facility] [id number] Information: [id number] Microscopic Examination See below: (Normal) Comments: Microscopic was indicated and was performed. Nitrite, Urine Negative (Normal) Urobilinogen,Semi-Qn 1.0 mg/dL (Normal) Range: 0.0-1.9 Bilirubin Negative (Normal) Occult Blood Negative (Normal) Ketones Negative (Normal) Glucose Negative (Normal) Protein Negative (Normal) WBC Esterase Trace (Abnormal) Appearance Clear (Normal) Urine-Color Yellow (Normal) pH 6.0 (Normal) Range: 5.0-7.5 Specific [place] 1.023 (Normal) Range: 1.005-1.030 :12 PSA (PROSTATE SPECIFIC Comments: PATIENT NOT FASTINGPERFORMED BY: Stitch FixSteven Ville 5379870 [facility] [id number] Information: [id number] ANTIGEN) (V76.44) Prostate Specific Ag, 0.5 ng/mL (Normal) Range: 0.0-4.0 Serum Comments: [employer] ECLIA methodology. .According to the [place] [employer], Serum PSA shoulddecrease and remain [...] of malignant disease. :16 HgA1C , Office (12072) HgA1C , Office 5.7 % (Normal) Range: 4.6 - 7.1 :31 Ethanol, Blood Comments: PATIENT WAS FASTINGPERFORMED BY: Stitch Fix[address] [id number] BY: TakesDeckerville Community Hospital6370 [facility] [id number] Inf ormation: [id number] Ethanol 0.094 % (Normal) Comments: Verified by repeat analysis Written Authorization WAR (Normal) Comments: PATIENT WAS FASTINGPERFORMED BY: Stitch Fix[address] [id number] BY: [place] 4858970 [facility] [id number] :31 Comments: Written Authorization Received.Authorization received from PER ORIGINAL ORDER [id number] by Avelina Glez 31-Xna-788274:37 PTT (Activated Partial Comments: PATIENT WAS FASTINGPERFORMED BY: [place] 4858970 [facility] [id number] BY: [address] [id number] Thromboplastin Time) (54528) aPTT 31 {sec} (Normal) Range: 24-33 Comments: This test has not been validated for monitoring unfractionated heparintherapy. aPTT-based therapeutic ranges for unfractionated heparintherapy have not been established. For general guidelines onHeparin monitoring, refer to the [facility] Directory of Services. 58-Evx-016398:37 PT (Prothrobim Time) Comments: PATIENT WAS FASTINGPERFORMED BY: [facility]6370 [facility] [id number] BY: [address] [id number] (01119) Prothrombin Time 10.9 {sec} (Normal) Range: 9.1-12.0 INR 1.0 (Normal) Range: 0.8-1.2 Comments: Reference interval is for non-anticoagulated patients. . Suggested INR therapeutic range for Vitamin K anta gonist therapy: Standard Dose (moderate intensity therapeutic range): 2.0 - 3.0 Higher intensity therapeutic range 2.5 - 3.5 7-Agg-904425:37 DRUG SCREEN (35206) Comments: PATIENT NOT FASTINGPERFORMED BY: [facility] UTT0360 [address] [facility] [id number] Information: [id number] CCU:[id number] LM Ethanol U, Rich Negative % (Normal) Phencyclidine Negative ng/mL (Normal) Opiates Negative ng/mL (Normal) Comments: Opiate test includes Codeine and Morphine only. Cannabinoid Negative ng/mL (Normal) Cocaine (Metab.) Negative ng/mL (Normal) Benzodiazepines Negative ng/mL (Normal) Barbiturate Negative ng/mL (Normal) Amphetamines, Urine Negative ng/mL (Normal) Comments: Amphetamine test includes Amphetamine and Methamphetamine. 71-Flc-457734:37 T4, FREE (THYROXINE) Comments: PATIENT WAS FASTINGPERFORMED BY: Stitch FixSteven Ville 5379870 [facility] [id number] BY: [address] [id number] (23396) T4,Free(Direct) 1.14 ng/dL (Normal) Range: 0.82-1.77 92-Vxr-915667:38 HgA1C , Office (77313) HgA1C , Office 5.3 % (Normal) Range: 4.6 - 7.1 52-Ebq-499749:38 Blood Glucose , Office (93192) Blood Glucose , Office 87 (Normal) 97-Xjt-809969:38 HgA1C , Office (28458) HgA1C , Office 5.3 % (Normal) Range: 4.6 - 7.1 15-Asj-035347:37 RHEUMATOID FACTOR-QUANT Comments: PATIENT WAS FASTINGPERFORMED BY: Stitch Fix[address] [id number] BY: [address] [id number] (54929) RA Latex Turbid. 9.9 {IU/mL} (Normal) Range: 0.0-13.9 29-Hwu-534425:37 CCP ANTIBODY (20656) Comments: PATIENT WAS FASTINGPERFORMED BY: Stitch Fix[address] [id number] BY: [address] [id number] CCP Antibodies IgG/IgA 9 {units} (Normal) Range: 0-19 Comments: Negative <20 Weak positive 20 - 39 Moderate positive 40 - 59 Strong positive >59 31-Sqq-915130:37 ALISON (ANTINUCLEAR ANTIBODY) Comments: PATIENT WAS FASTINGPERFORMED BY: [address] [id number] BY: [address] [id number] (60688) ALISON Direct Negative (Normal) 07-Kpx-779001:37 Creatine Kinase Total Comments: PATIENT WAS FASTINGPERFORMED BY: Stitch Fix Uqrmzr9575 [facility] [id number] BY: [address] [id number] (25676) Creatine Kinase,Total,Serum 199 U/L (Normal) Range: 24-204 56-Cou-048662:37 C-Reactive Protein Comments: PATIENT WAS FASTINGPERFORMED BY: LabApropose Rynuzq3380 [facility] [id number] BY: [address] [id number] (23337) C-Reactive Protein, Quant 0.9 mg/L (Normal) Range: 0.0-4.9 17-Xwu-999170:37 Methymalonic Acid, Serum Comments: PATIENT WAS FASTINGPERFORMED BY: Stitch Fix Rgxmng1292 [facility] [id number] BY: [address] [id number] (29044) Methylmalonic Acid, Serum 110 nmol/L (Normal) Range: 0-378 Comments: Please note reference interval change 09-Fhi-567601:37 Vitamin B-12 Comments: PATIENT WAS FASTINGPERFORMED BY: Stitch Fix Ydbovm0533 [facility] [id number] BY: [address] [id number] (cyanocobalamin) (46759) Vitamin B12 293 pg/mL (Normal) Range: 211-946 54-Xbb-745830:37 CALCIFIDIOL (10033) VIT D Comments: PATIENT WAS FASTINGPERFORMED BY: [facility] Umtbsb8171 [facility] [id number] BY: [address] [id number] 25 Vitamin D, 25-Hydroxy 12.6 ng/mL (Abnormal) Range: 30.0-100.0 Comments: Vitamin D deficiency has been defined by the [place] of[place]icine and an Endocrine Society practice guideline as alevel of serum 25-OH vitamin D less than 20 ng/mL (1,2).The Endocrine Society went on to further define vitamin Dinsufficiency as a level between 21 and 29 ng/mL (2).1. IOM ([place] of Medicine). 2010. Dietary reference intakes for calcium and D. Cantu [place]: The National Academies Press.2. Clifton MF, Robbi MADRID, Ladarius GONZALES, et al. Evaluation, treatment, and prevention of vitamin D deficiency: an Endocrine Society clinical practice guideline. JCEM. 2010; 96(7):1911-30. 04-Aop-564676:37 CBC with manual diff Comments: PATIENT WAS FASTINGPERFORMED BY: CB [facility] Juomoo4806 [facility] [id number] BY: BN [facility] Fpqmwkjvto6802 [facility] [id number] Inf ormation: [id number] (03081) Immature Grans (Abs) 0.0 {x10E3/uL} (Normal) Range: [...] 4.14-5.80 WBC 6.0 {x10E3/uL} (Normal) Range: 3.4-10.8 39-Nir-239868:37 HEPATIC FUNCTION PANEL Comments: PATIENT WAS FASTINGPERFORMED BY: [employer] [address] [id number] BY: [place] [id number] (37926) Bilirubin, Direct 0.55 mg/dL (Abnormal) Range: 0.00-0.40 :37 TSH (THYROID STIMULATING Comments: PATIENT WAS FASTINGPERFORMED BY: [employer] [id number] BY: Stitch Fix[address] [id number] HORMONE) (22656) TSH 0.551 {uIU/mL} (Normal) Range: 0.450-4.500 :37 Lipid Panel (25125) Comments: PATIENT WAS FASTINGPERFORMED BY: [employer] Ivrbrp[address] [place] [address] [id number] BY: Takes[address] [id number] LDL/HDL Ratio 0.8 {ratio_units} (Normal) Range: 0.0-3.6 LDL Cholesterol Calc 99 mg/dL (Normal) Range: 0-99 VLDL Cholesterol Micah 15 mg/dL (Normal) Range: 5-40 HDL Cholesterol 127 mg/dL (Normal) Comments: Results confirmed ondilution.According to ATP-III Guidelines, HDL-C >59 mg/dL is considered anegative risk factor for CHD. Triglycerides 77 mg/dL (Normal) Range: 0-149 Cholesterol, Total 241 mg/dL (Abnormal) Range: 100-199 54-Kvn-454194:37 Metabolic Panel, Comments: PATIENT WAS FASTINGPERFORMED BY: [employer] [facility] [id number] BY: Stitch Fix[address] [id number] Comprehensive (61561) ALT (SGPT) 61 [iU]/L (Abnormal) Range: 0-44 [...] Glucose, Serum 90 mg/dL (Normal) Range: 65-99 23-Qtm-802357:33 Ethanol, Blood Comments: PATIENT NOT FASTINGPERFORMED BY: OdinOtvet6370 [facility] [id number] BY: Stitch Fix[address] [id number] Ethanol 0.085 % (Normal) Comments: Verified by repeat analysis 30-Sxe-578151:33 Magnesium (13822) Comments: PATIENT NOT FASTINGPERFORMED BY: [facility] Xpbuzi6372 [facility] [id number] BY: [address] [id number] Magnesium, Serum 1.6 mg/dL (Normal) Range: 1.6-2.6 53-Mtc-816585:33 Methymalonic Acid, Serum Comments: PATIENT NOT FASTINGPERFORMED BY: [facility] Fhurru0073 [facility] [id number] BY: [address] [id number] (32074) Methylmalonic Acid, Serum 78 nmol/L (Normal) Range: 73-376 Comments: The reference range for methylmalonic acid has been set at +3sd abovethe mean for healthy blood bank donors. In the clinical assessment ofpatients with megaloblastic anemias a cutoff of +3sd provides gr eaterspecificity in the diagnosis of the vitamin deficiency states,despite the sacrifice of some sensitivity. 07-Odd-585909:33 Vitamin B-12 Comments: PATIENT NOT FASTINGPERFORMED BY: [facility] Wdpqtp5157 [facility] [id number] BY: [address] [id number] (cyanocobalamin) (30815) Vitamin B12 449 pg/mL (Normal) Range: 211-946 11-Abj-282015:33 TSH (96943) Comments: PATIENT NOT FASTINGPERFORMED BY: [facility] Tfomre4994 [facility] [id number] BY: [address] [id number] TSH 0.654 {uIU/mL} (Normal) Range: 0.450-4.500 16-Tag-245802:33 METABOLIC PANEL, Comments: PATIENT NOT FASTINGPERFORMED BY: LabCoRehabilitation Hospital of South JerseyEquhky0254 [facility] [id number] BY: LabCo[address] [id number] Inf ormation: [id number] COMPREHENSIVE (13075) ALT (SGPT) 88 [iU]/L (Abnormal) Range: 0-44 [...] Range: 65-99 :49 Blood Glucose , Office (75597) Blood Glucose , Office 90 (Normal) :49 HgA1C , Office (53430) HgA1C , Office 5.3 % (Normal) Range: 4.6 - 7.1 :07 MAGNESIUM (96743) Comments: PATIENT NOT FASTINGPERFORMED BY: LabCoRehabilitation Hospital of South JerseyIebzgl4432 [facility] [id number] Magnesium, Serum 1.3 mg/dL (Abnormal) Range: 1.6-2.6 42-Kxt-778978:07 PSA (PROSTATE SPECIFIC Comments: PATIENT NOT FASTINGPERFORMED BY: [facility]6370 [facility] [id number] ANTIGEN) (26219) Prostate Specific Ag, 0.8 ng/mL (Normal) Range: 0.0-4.0 Serum Comments: The [employer] ECLIA methodology. .According to the [place] [employer], Serum PSA shoulddecrease and remain at undetectable levels after radicalprostatectomy. The AUA defines biochemical recurrence as an initialPSA value 0.2 ng/mL or greater followed by a subsequent confirmatoryPSA value 0.2 ng/mL or greater.Values obtained with d ifferent assay methods or kits cannot be usedinterchangeably. Results cannot be interpreted as absolute evidenceof the presence or absence of malignant disease. 02-Ytn-032809:07 Metabolic Panel, Comments: PATIENT NOT FASTINGPERFORMED BY: [facility]De[facility]erville [facility] Hospital6370 [facility] [id number] Information: ADD Q85600 AND DRAW FEE 99 1363 Comprehensive (26229) ALT (SGPT) 74 [iU]/L (Abnormal) Range: 0-44 [...] Glucose, Serum 98 mg/dL (Normal) Range: 65-99 13-Rsx-74683:00 Urinalysis, Office (40591) UA - BILIRUBIN Negative (Normal) UA - BLOOD Non Hemolyzed Trace (Normal) UA - GLUCOSE Negative (Normal) UA - KETONES Negative mg/dL (Normal) UA - LEUKOCYTE ESTERASE Negative (Normal) UA - NITRITE Negative (Normal) UA - PH 7.0 (Normal) UA - PROTEIN Negative mg/dL (Normal) UA - SPECIFIC GRAVITY 1.015 (Normal) URINE UROBILINGN RICH TIMED Normal mg/dL (Normal) :32 Potassium Serum (60974) Comments: PATIENT NOT FASTINGPERFORMED BY: Stitch Fix Bcfrgp6165 [facility] [id number] Information: [id number] Potassium, Serum 4.0 mmol/L (Normal) Range: 3.5-5.2 :32 Magnesium (89293) Comments: PATIENT NOT FASTINGPERFORMED BY: Stitch Fix Vkaxgg5405 [facility] [id number] Magnesium, Serum 1.7 mg/dL (Normal) Range: 1.6-2.6 Magnesium, Serum 1.4 mg/dL Comments: PATIENT WAS FASTINGPERFORMED BY: Stitch Fix Wvvpvo1146 [facility] [id number] :32 (Abnormal) Range: 1.6-2.6 Written Authorization WAR (Normal) Comments: PATIENT WAS FASTINGPERFORMED BY: Stitch FixRehabilitation Hospital of South JerseyPdgeap8540 [facility] [id number] :32 Comments: Written Authorization Received.Authorization received from JEWELL HADLEY [id number] by Kenisha Lozano :32 Metabolic Panel, Basic Comments: PATIENT WAS FASTINGPERFORMED BY: Stitch FixSteven V[place] 5379870 [facility] [id number] BY: [address] [id number] (43613) Calcium, Serum 9.1 mg/dL (Normal) Range: 8.6-10.2 [...] Glucose, Serum 84 mg/dL (Normal) Range: 65-99 2-Hhu-291716:32 HEPATIC FUNCTION PANEL Comments: PATIENT WAS FASTINGPERFORMED BY: Stitch FixRehabilitation Hospital of South JerseyRxuhxu1093 [facility] [id number] BY: [address] [id number] (84949) ALT (SGPT) 72 [iU]/L (Abnormal) Range: 0-55 AST (SGOT) 88 [iU]/L (Abnormal) Range: 0-40 Alkaline Phosphatase, S 74 [iU]/L (Normal) Range: 25-160 Bilirubin, Direct 0.57 mg/dL (Abnormal) Range: 0.00-0.40 Bilirubin, Total 1.3 mg/dL (Abnormal) Range: 0.0-1.2 Albumin, Serum 4.5 g/dL (Normal) Range: 3.6-4.8 Protein, Total, Serum 7.1 g/dL (Normal) Range: 6.0-8.5 7-Jce-590933:32 CALCIFIDIOL (55641) VIT D Comments: PATIENT WAS FASTINGPERFORMED BY: [facility]Apropose Gknreu3758 [facility] Hospital[facility] [place] [id number] BY: [address] [id number] 25 Vitamin D, 25-Hydroxy 39.6 ng/mL (Normal) Range: 30.0-100.0 Comments: Vitamin D deficiency has been defined by the [place] ofUc [facility] Hospitalcine and an Endocrine Society practice guideline as alevel of serum 25-OH vitamin D less than 20 ng/mL (1,2).The Endocrine Society went on to further define vitamin Dinsufficiency as a level between 21 and 29 ng/mL (2).1. IOM ([place] of Medicine). 2010. Dietary reference intakes for calcium and D. Cantu [place]: The National AcademUltralife Press.2. Clifton MF, Robbi MADRID, Ladarius GONZALES, et al. Evaluation, treatment, and prevention of vitamin D deficiency: an Endocrine Society clinical practice guideline. JCEM. 2010; 96(7):1911-30. 6-Jaw-175862:32 Vitamin B-12 (cyanocobalamin) Comments: PATIENT WAS FASTINGPERFORMED BY: LabAproposerp Cxpqiu1378 [facility] [id number] BY: [address] [id number] (36333) Vitamin B12 557 pg/mL (Normal) Range: 211-946 :32 TSH (29981) Comments: PATIENT WAS FASTINGPERFORMED BY: [facility] Vsfgzw8555 [facility] [place] [id number] BY: [address] [id number] TSH 0.507 {uIU/mL} (Normal) Range: 0.450-4.500 :32 T4, FREE (THYROXINE) Comments: PATIENT WAS FASTINGPERFORMED BY: [facility] Rfvvaa1995 [facility] [place] [id number] BY: [address] [id number] (51582) T4,Free(Direct) 1.07 ng/dL (Normal) Range: 0.82-1.77 5-Qwq-992693:32 T3, FREE (TRIDOTHYRONINE) Comments: PATIENT WAS FASTINGPERFORMED BY: LabCoSteven [place] 5379870 [facility] [id number] BY: [address] [id number] (02387) Triiodothyronine,Free,Serum 3.4 pg/mL (Normal) Range: 2.0-4.4 :32 Ethanol, Blood Comments: PATIENT WAS FASTINGPERFORMED BY: Lab[address] [id number] BY: Lab[address] [id number] Ethanol 0.025 % (Normal) Comments: Verified by repeat analysis 04-Apr-20128:30 [facility] Radiology Report See Note (Normal) Comments: CLINICAL:62-year-old [...] EDTElectronically Signed RB/RB Professional Interpretation Provided By: [facility], , To consult with a radiologist regarding this report, please call our [id number] line @ Dictated on 04/04/12951 by Jeffrey Fatima DOTranscribed on 04/05/122125 by ITS IMPORTSign by [facility] Jeffrey vigil DO on 04/05/122126 Sign by: Jeffrey Fatima DO 92-Yaj-065098:50 TSH (55957) Comments: PATIENT NOT FASTINGPERFORMED BY: CB [facility] Czbbtu8751 Perry RoadDublin [place] [id number] TSH 0.337 {uIU/mL} (Abnormal) Range: 0.450-4.500 :50 T4, FREE (THYROXINE) (17560) Comments: PATIENT NOT FASTINGPERFORMED BY: CB [facility] Ommkqc7715 Perry RoadDublin [place] [id number] T4,Free(Direct) 1.14 ng/dL (Normal) Range: 0.82-1.77 :50 T3, FREE (TRIDOTHYRONINE) (07840) Comments: PATIENT NOT FASTINGPERFORMED BY: CB [facility] Bcfzpx9056 Perry RoadDublin [place] [id number] Triiodothyronine,Free,Serum 3.2 pg/mL (Normal) Range: 2.0-4.4 33-Opu-016224:50 CALCIFIDIOL (00360) VIT D 25 Comments: PATIENT NOT FASTINGPERFORMED BY: CB [facility] Fxkdux1594 Perry RoadDublin [place] [id number] Vitamin D, 25-Hydroxy 57.3 ng/mL (Normal) Range: 30.0-100.0 Comments: Vitamin D deficiency has been defined by the [place] of[place]icine and an Endocrine Society practice guideline as alevel of serum 25-OH vitamin D less than 20 ng/mL (1,2).The Endocrine Society went on to further define vitamin Dinsufficiency as a level between 21 and 29 ng/mL (2).1. IOM ([place] of [place]). 2010. Dietary reference intakes for calcium and D. Cantu [place]: The National Academies Press.2. Robbi Morales, Ladarius GONZALES, et al. Evaluation, treatment, and prevention of vitamin D deficiency: an Endocrine Society clinical practice guideline. JCEM. 2010; 96(7):1911-30. 78-Dom-109776:50 HEPATIC FUNCTION PANEL Comments: PATIENT NOT FASTINGPERFORMED BY: [employer]70 [address]li [facility] [id number] Information: [id number] (51016) ALT (SGPT) 76 [iU]/L (Abnormal) Range: 0-55 Alkaline Phosphatase, S 77 [iU]/L (Normal) Range: 25-160 AST (SGOT) 88 [iU]/L (Abnormal) Range: 0-40 Bilirubin, Direct 0.52 mg/dL Range: 0.00-0.40 (Abnormal) Bilirubin, Total 1.3 mg/dL (Abnormal) Range: 0.0-1.2 Albumin, Serum 4.7 g/dL (Normal) Range: 3.6-4.8 Protein, Total, Serum 7.2 g/dL (Normal) Range: 6.0-8.5 11-Feb-2012 Vitamin D, 25-Hydroxy 5.2 ng/mL (Abnormal) Comments: PERFORMED BY: [employer]6370 [facility] [id number] 12:13 Range: 30.0-100.0 Comments: Vitamin D deficiency has been defined by the [place] of[place]icine and an Endocrine Society practice guideline as alevel of serum 25-OH vitamin D less than 20 ng/mL (1,2).The Endocrine Society went on to further define vitamin Dinsufficiency as a level between 21 and 29 ng/mL (2).1. IOM ([place]). 2010. Dietary reference intakes for calcium and D. Cantu [place]: The National Academies Press.2. Robbi Morales, Ladarius GONZALES, et al. Evaluation, treatment, and prevention of vitamin D deficiency: an Endocrine Society clinical practice guideline. JCEM. 2010; 96(7): 1911-30. .Effective January 31, 2012, Vitamin D, 25 Hydroxy specimen requirements will change to serum only. 11-Feb-2012 Mitochondrial (M2) <20.0 {Units} Comments: PERFORMED BY: [employer] [facility] [id number] 12:13 Antibody (Normal) Range: 0.0-20.0 Comments: Negative 0.0 - 20.0 Equivocal 20.1 - 24.9 Positive >24.9 . Mitochondrial (M2) Antibodies are found in 90-96% of patients with primary biliary cirrhosis. 11-Feb-2012 Actin (Smooth Muscle) 8 {Units} (Normal) Comments: PERFORMED BY: [employer] [facility] [id number] 12:13 Antibody Range: 0-19 Comments: Negative 0 - 19 Weak positive 20 - 30 Moderate to strong positive >30 . Actin Antibodies are found in 52-85% of patients with autoimmune hepatitis or chronic active hepatitis and in 22% of patients with primary biliary cirrhosis. 11-Feb-2012 Ferritin, Serum 364 ng/mL (Normal) Comments: PERFORMED BY: [employer] [facility] [id number] 12:13 Range: 30-400 41-Roo-494693:13 Antinuclear Antibodies Direct Comments: PERFORMED BY: [employer] [facility] [id number] ALISON Direct Negative (Normal) 86-Daa-628495:13 Hepatic Function Panel (7) Comments: PERFORMED BY: [employer] [facility] [id number] ALT (SGPT) 62 [iU]/L (Abnormal) Range: 0-55 Alkaline Phosphatase, S 82 [iU]/L (Normal) Range: 25-160 AST (SGOT) 106 [iU]/L (Abnormal) Range: 0-40 Bilirubin, Direct 0.44 mg/dL (Abnormal) Range: 0.00-0.40 Bilirubin, Total 0.9 mg/dL (Normal) Range: 0.0-1.2 Albumin, Serum 4.5 g/dL (Normal) Range: 3.6-4.8 Protein, Total, Serum 7.3 g/dL (Normal) Range: 6.0-8.5 77-Itw-918985:13 Thyroxine (T4) Free, Direct, Comments: PERFORMED BY: [facility]6370 [facility] [id number] S T4,Free(Direct) 1.10 ng/dL Range: 0.82-1.77 (Normal) 11-Feb-2012 Triiodothyronine,Free,Seru 3.4 pg/mL (Normal) Comments: PERFORMED BY: [place] 4858970 [facility] [id number] 12:13 m Range: 2.0-4.4 11-Feb-2012 TSH 0.371 {uIU/mL} Comments: PERFORMED BY: [address] [id number] 12:13 (Abnormal) Range: 0.450-4.500 01-Snf-575605:04 Thyroxine (T4) Free, Comments: PATIENT WAS FASTINGPERFORMED BY: [facility]6370 [facility] [id number] Information: [id number] Direct, S T4,Free(Direct) 1.25 ng/dL Range: 0.82-1.77 (Normal) 07-Dec-2011 Triiodothyronine,Free,Seru 3.1 pg/mL (Normal) Comments: PATIENT WAS FASTINGPERFORMED BY: [facility]6370 [facility] [id number] 13:04 m Range: 2.0-4.4 07-Dec-2011 Written Authorization WAR (Normal) Comments: PATIENT WAS FASTINGPERFORMED BY: [facility]6370 [facility] [id number] 13:04 Comments: Written Authorization Received.Authorization received from JEWELL HADLEY 14-37-0738Gghreb by Margaret Zuniga 13-Mfa-303050:04 TSH (42867) Comments: PATIENT WAS FASTINGPERFORMED BY: [facility]6370 [facility] [id number] TSH 0.290 {uIU/mL} (Abnormal) Range: 0.450-4.500 59-Djq-401850:04 CALCIFIDIOL (45636) VIT D 25 Comments: PATIENT WAS FASTINGPERFORMED BY: [facility]De[facility]6370 [facility] [id number] Vitamin D, 25-Hydroxy 7.2 ng/mL (Abnormal) Range: 30.0-100.0 Comments: Vitamin D deficiency has been defined by the [place] ofU[facility] Hospitalcine and an Endocrine Society practice guideline as alevel of serum 25-OH vitamin D less than 20 ng/mL (1,2).The Endocrine Society went on to further define vitamin Dinsufficiency as a level between 21 and 29 ng/mL (2).1. IOM ([place]). 2011. Dietary reference intakes for calcium and D. Cantu [place]: The National AcademUltralife Press.2. Clifton IGNACIO, Robib MADRID, Ladarius GONZALES, et al. Evaluation, treatment, and prevention of vitamin D deficiency: an Endocrine Society clinical practice guideline. JCEM. 2010; 96(7):1911-30. 83-Llm-425459:04 Vitamin B-12 (cyanocobalamin) Comments: PATIENT WAS FASTINGPERFORMED BY: [facility]6370 [facility] [id number] (30770) Vitamin B12 920 pg/mL (Normal) Range: 211-946 68-Qnv-220438:04 METABOLIC PANEL, COMPREHENSIVE Comments: PATIENT WAS FASTINGPERFORMED BY: [facility]6370 [facility] [id number] (41283) ALT (SGPT) 101 [iU]/L (Abnormal) Range: 0-55 [...] Glucose, Serum 85 mg/dL (Normal) Range: 65-99 57-Cqe-288951:04 LIPID PANEL (77312) Comments: PATIENT WAS FASTINGPERFORMED BY: [facility] [id number] LDL Cholesterol Calc 79 mg/dL (Normal) Range: 0-99 LDL/HDL Ratio 0.5 {ratio_units} (Normal) Range: 0.0-3.6 VLDL Cholesterol Micah 11 mg/dL (Normal) Range: 5-40 HDL Cholesterol 156 mg/dL (Normal) Comments: Results confirmed ondilution.According to ATP-III Guidelines, HDL-C >59 mg/dL is considered anegative risk factor for CHD. Triglycerides 57 mg/dL (Normal) Range: 0-149 Cholesterol, Total 246 mg/dL (Abnormal) Range: 100-199 58-Gpy-657011:04 CBC WITH MANUAL DIFF Comments: PATIENT WAS FASTINGPERFORMED BY: [facility]nobluC[facility] Hospital [id number] Information: [id number] (81990) Immature Grans (Abs) 0.0 {x10E3/uL} (Normal) Range: [...] on 1332 Sign by: Maxi Arana MD 82-Fhd-10929:00 LIVER Radiology Report See Note (Normal) Comments: [...] size of the right kidney. The right ksaofpggutyhlt98.4 cm. Normal renal cortex. The right cortex [...] FUNCTION PANEL Comments: PATIENT NOT FASTINGPERFORMED BY: Stitch FixRehabilitation Hospital of South JerseyBrmqhd7325 [facility] [id number] Information: [id number] (46244) Alkaline Phosphatase, S 69 [iU]/L (Normal) Range: 25-160 ALT (SGPT) 142 [iU]/L (Abnormal) Range: 0-55 AST (SGOT) 171 [iU]/L (Abnormal) Range: 0-40 Bilirubin, Direct 0.43 mg/dL (Abnormal) Range: 0.00-0.40 Bilirubin, Total 0.8 mg/dL (Normal) Range: 0.0-1.2 Albumin, Serum 4.7 g/dL (Normal) Range: 3.6-4.8 Protein, Total, Serum 7.2 g/dL (Normal) Range: 6.0-8.5 :16 HEPATITIS PANEL (11468) Comments: PATIENT NOT FASTINGPERFORMED BY: Stitch FixRehabilitation Hospital of South JerseyZekjnn4685 [facility] [id number] Hep C Virus Ab <0.1 {s/co_ratio} (Normal) [...] (Normal) Hep A Ab, IgM Negative (Normal) 76-Umi-767342:05 CBC With Differential/Platelet Comments: PATIENT WAS FASTINGPERFORMED BY: TakesCoRehabilitation Hospital of South JerseyFkyujq8504 [facility] [id number] BY: Lab[address] [id number] Immature Grans (Abs) 0.0 {x10E3/uL} (Normal) Range: [...] 4.10-5.60 WBC 7.7 {x10E3/uL} (Normal) Range: 4.0-10.5 96-Gab-595961:05 Comp. Metabolic Panel Comments: PATIENT WAS FASTINGPERFORMED BY: TakesGerald Ville 9681770 [facility] [id number] BY: LabCoAnna Ville 162237 [facility] [id number] (14) Alkaline Phosphatase, S 74 [iU]/L (Normal) [...] (Normal) Comments: PATIENT WAS FASTINGPERFORMED BY: [facility] Uwzfgp0620 [facility] [id number] BY: Lab[address] [id number] 3:05 Range: 4.8-5.6 Comments: Increased risk for diabetes: 5.7 - 6.4 Diabetes: >6.4 Glycemic control for adults with diabetes: <7.0 :05 Lipid Panel With LDL/HDL Comments: PATIENT WAS FASTINGPERFORMED BY: Stitch FixRehabilitation Hospital of South JerseyVmfpmc239[address] [place] [address] [id number] BY: [address] [id number] Ratio LDL Cholesterol Calc 89 mg/dL (Normal) Range: 0-99 LDL/HDL Ratio 0.7 {ratio_units} (Normal) Range: 0.0-3.6 VLDL Cholesterol Micah 18 mg/dL (Normal) Range: 5-40 Cholesterol, Total 241 mg/dL (Abnormal) Range: 100-199 HDL Cholesterol 134 mg/dL (Normal) Comments: Results confirmed ondilution.According to ATP-III Guidelines, HDL-C >59 mg/dL is considered anegative risk factor for CHD. Triglycerides 92 mg/dL (Normal) Range: 0-149 :05 Panel [id number] Comments: PATIENT WAS FASTINGPERFORMED BY: [employer] [facility] [id number] BY: [address] [id number] HIV 1/O/2 Abs, Non Reactive Qual (Normal) HIV 1/O/2 <1.00 (Normal) Comments: Index Value: Specimen reactivity relative to the negative cutoff. Abs-Index Value : TSH 0.699 {uIU/mL} Comments: PATIENT WAS FASTINGPERFORMED BY: St[facility] FixM[facility]illa [facility] HospitalAualyn[address] [place] [address] [id number] BY: [address] [id number] 05 (Normal) Range: 0.450-4.500 :05 Vitamin B1 (Thiamine), Comments: PATIENT WAS FASTINGPERFORMED BY: Stitch Fix[address] [id number] BY: LabCo[address] [id number] Blood Vit. B1, Whole Blood 150.6 nmol/L Range: 66.5-200.0 (Normal) Vitamin B12 >1999 pg/mL Comments: PATIENT WAS FASTINGPERFORMED BY: LabCoRehabilitation Hospital of South JerseyKvgicn5237 [address] [place] [place] [id number] BY: [facility] [id number] :05 (Abnormal) Range: 211-946 :10 CBCD,SMEAR DIFF [...] CHOL 200 mg/dL (Normal) Comments: <200 mg/dL Tsmfyfmli469-689 mg/dL Borderline>240 mg/dL High Risk HDL 87 [...] Range: 0.358-3.74 0 (Normal) :1 VIT D,25 94306 20.5 ng/mL (Abnormal) Range: 32.0-100.0 0 Comments: Recent studies consider the lower limit of 32.0 ng/mL to nati threshold for optimal health.Edwin ESPINOZA. J Nutr. 2004;135(2):317-22.Performed at: [place] [address]Lab Director: Adrienne Gil MD, Phone: [phone] 37-Ysi-23857:1 VITAMIN B12 1239 pg/mL (Normal) Range: 254-1320 0 Comments: There is a low frequency possibility that high titers ofintrinsic blocking antibodies may not be completelyinactivated during the reaction pretreatment stepof this testing method. If test results are in conflictwith the clinical diagnosis, patient should be testedfor the presence of intrinsic factor blocking antibodies. 78-Xkd-402383:24 Urinalysis, Office (84230) UA - LEUKOCYTE Negative (Normal) ESTERASE UA [...] {units} (Normal) Comments: PATIENT WAS FASTINGPERFORMED BY: Takes[address] [id number] Range: 0-19 Comments: Negative <20 Weak positive 20 - 39 Moderate positive 40 - 59 Strong positive >59 : Comment: SPRCS (Normal) Comments: PATIENT WAS FASTINGPERFORMED BY: Takes[address] [id number] 29 Comments: Effective August 25, 2009 order code 139601 CCP IgGAntibodies has been replaced due to an updated reagentversion 3.1. For this reason [facility] has provided youwith a new order code 257011 CCP Antibodies IgG/IgA. :29 PSA (PROSTATE SPECIFIC Comments: PATIENT WAS FASTINGPERFORMED BY: [address] [id number] ANTIGEN) (V76.44) Prostate Specific Ag, 1.0 ng/mL (Normal) Range: 0.0-4.0 Serum Comments: Mónica ECLIA methodology. .According to the [place] [employer], Serum PSA shoulddecrease and remain at undetectable levels after radicalprostatectomy. The AUA defines biochemical recurrence as an initialPSA value 0.2 ng/mL or greater followed by a subsequent confirmatoryPSA value 0.2 ng/mL or greater.Values obtained with d ifferent assay methods or kits cannot be usedinterchangeably. Results cannot be interpreted as absolute evidenceof the presence or absence of malignant disease. :29 LIPID PANEL (98392) Comments: PATIENT WAS FASTINGPERFORMED BY: Stitch Fix[address] [id number] Cholesterol, Total 240 mg/dL (Abnormal) Range: 100-199 HDL Cholesterol 85 mg/dL (Normal) Comments: According to ATP-III Guidelines, HDL-C >59 mg/dL is considered anegative risk factor for CHD. LDL Cholesterol Calc 142 mg/dL (Abnormal) Range: 0-99 LDL/HDL Ratio 1.7 {ratio_units} (Normal) Range: 0.0-3.6 Triglycerides 63 mg/dL (Normal) Range: 0-149 VLDL Cholesterol Micah 13 mg/dL (Normal) Range: 5-40 :29 C-REACTIVE PROTEIN (41374) Comments: PATIENT WAS FASTINGPERFORMED BY: Takes[address] [id number] C-Reactive Protein, Quant 0.8 mg/L (Normal) Range: 0.0-4.9 :29 SED RATE ERYTHROCYTE (99724) Comments: PATIENT WAS FASTINGPERFORMED BY: Takes[address] [id number] Sedimentation Rate-Westergren 2 mm/h (Normal) Range: 0-20 :29 ALISON (ANTINUCLEAR ANTIBODY) Comments: PATIENT WAS FASTINGPERFORMED BY: Takes[address] [id number] (16043) ALISNO Direct Negative (Normal) :29 CBC WITH MANUAL DIFF (86389) Comments: PATIENT WAS FASTINGClinical Information: 884143,V73224 PERFORMED BY: BN LabCoRunnells Specialized HospitalGfvfeqhiua6909 [facility] [id number] Baso (Absolute) 0.1 {x10E3/uL} (Normal) Range: 0.0-0.2 [...] PANEL, COMPREHENSIVE Comments: PATIENT WAS FASTINGPERFORMED BY: LabCoZoodak Qayrhwdofm2179 [facility] [id number] (44029) A/G Ratio 1.5 (Normal) Range: 1.1-2.5 Albumin, [...] mmol/L (Normal) Range: 135-145 :29 RHEUMATOID FACTOR-QUANT (42839) Comments: PATIENT WAS FASTINGPERFORMED BY: [employer] [facility] [address] [id number] RA Latex Turbid. 8.4 {IU/mL} (Normal) Range: 0.0-13.9 :29 TSH (17457) Comments: PATIENT WAS FASTINGPERFORMED BY: [employer] [facility] [address] [id number] TSH 0.661 {uIU/mL} (Normal) Range: 0.450-4.500 44-Mvw-750678:30 RIBS,UNI,MIN 3V,W/PA CHEST(MT) Radiology Report See Note (Normal) Comments: Exam Number: [id number] FRONTAL CHEST AND LEFT RIBS CLINICAL HISTORY [...] (PROSTATE SPECIFIC Comments: PATIENT NOT FASTINGPERFORMED BY: CurbStand[address] [id number] ANTIGEN) (V76.44) Prostate Specific Ag, Serum 1.6 ng/mL (Normal) Range: 0.0-4.0 Comments: PAAYIA methodology. .According to the [place] [employer], PSA should beundetectable after radical prostatectomy. A PSA of less than0.5 ng/mL (or undetectable) is not likely to be associated withdisease recurrence within five years of treatment.Values obtained with different assay methods or kits cannot be usedinterchang eably. Results cannot be interpreted as absolute evidenceof the presence or absence of malignant disease. :47 TSH (02067) Comments: PATIENT NOT FASTINGPERFORMED BY: CurbStand[address] [id number] TSH 0.463 {uIU/mL} (Normal) Range: 0.450-4.500 :47 CBC (Auto) (16188) Comments: PATIENT NOT FASTINGPERFORMED BY: CurbStand[address] [id number] Hematocrit 47.6 % (Normal) Range: 36.0-50.0 Hemoglobin [...] PATIENT NOT FASTINGClinical Information: ADD DRAW FEE 070198 ADD J 94001 PERFORMED BY: [facility] [address] [id number] (85321) A/G Ratio 1.4 (Normal) Range: 1.1-2.5 Albumin, [...] mmol/L (Normal) Range: 135-145 :47 Lipid Panel (28466) Comments: PATIENT NOT FASTINGPERFORMED BY: [employer] [address] [id number] Cholesterol, Total 199 mg/dL (Normal) Range: 100-199 [...] (Normal) Range: 5-40 :47 Methylmalonic acid, serum 65991 Comments: PATIENT NOT FASTINGPERFORMED BY: [facility] [id number] Methylmalonic Acid, Serum 225 nmol/L (Normal) Range: [...] B-12 (cyanocobalamin) Comments: PATIENT NOT FASTINGPERFORMED BY: CurbStandton1447 [facility] [id number] (52963) Vitamin B12 256 pg/mL (Normal) Range: 211-911 70-Dxd-249316:30 Metabolic Panel, Basic Comments: PATIENT NOT FASTINGClinical Information: ADD DRAW FEE 218506 ADD J 84549 PERFORMED BY: SATHISH [facility] Gfjppl3573 Vicky [facility]ianNov[facility] [id number] (23476) BUN 13 mg/dL (Normal) Range: 5-26 BUN/Creatinine [...] on 'Glom Filt Rate, Est' and 'If -Kenyan' will be changing to >59 mL/min/1.73. Glucose, Serum 86 mg/dL (Normal) Range: 65-99 If -Kenyan >59 mL/min/1.73 Range: 60-137 (Normal) Comments: Note: Persistent reduction for 3 months or more in an eGFR<60 mL/min/1.73 m2 defines CKD. Patients with eGFR values>/=60 mL/min/1.73 m2 may also have CKD if evidence of persistentproteinuria is present. Additional information may be found [email or web address]. Potassium, Serum 4.2 mmol/L (Normal) Range: 3.5-5.2 Sodium, Serum 139 mmol/L (Normal) Range: 135-145 40-Iku-60498:01 BMP BUN 13 mg/dL (Normal) Range: 7-18 [...] Report See Note (Normal) Comments: Exam Number: [id number] PA AND LATERAL CHEST HISTORY Being done [...] (PROSTATE SPECIFIC Comments: PATIENT WAS FASTINGPERFORMED BY: LabCoSteven [place] 5379870 [facility] [id number] ANTIGEN) Prostate-Specific Ag, Serum 0.5 ng/mL (Normal) Range: 0.0-4.0 Comments: Cathie ([facility]) [facility] methodology :28 Vitamin B-12 (cyanocobalamin) Comments: PATIENT WAS FASTINGPERFORMED BY: [facility] Xclfdp0810 [facility] HospitalblH[facility] [id number] ([id number]) Vitamin B12 283 pg/mL (Normal) Range: 211-911 :28 C-REACTIVE PROTEIN (46094) Comments: PATIENT WAS FASTINGPERFORMED BY: LabDeckerville Community Hospital6370 [facility] [id number] C-Reactive Protein, Quant 0.6 mg/L (Normal) Range: 0.0-4.9 :28 SED RATE ERYTHROCYTE (53054) Comments: PATIENT WAS FASTINGPERFORMED BY: LabShriners Hospitals For ChildrenBtbrts8229 [facility] [id number] Sedimentation Rate-Westergren 2 mm/h (Normal) Range: 0-20 :28 RHEUMATOID FACTOR-QUANT (33928) Comments: PATIENT WAS FASTINGPERFORMED BY: [facility] Gnnyhs3628 [facility]in [place] [id number] RA Latex Turbid. 5.2 {IU/mL} (Normal) Range: 0.0-13.9 :28 TSH (47396) Comments: PATIENT WAS FASTINGPERFORMED BY: [facility] Irusgg7827 [facility] [place] [id number] TSH 0.436 {uIU/mL} (Normal) Range: 0.350-5.500 :28 ALISON (ANTINUCLEAR ANTIBODY) Comments: PATIENT WAS FASTINGPERFORMED BY: [facility] Yihvbb9247 [facility] [place] [id number] (02085) Antinuclear Antibodies Direct 23 AU/mL (Normal) Range: 0-99 Comments: Negative <100 Equivocal 100 - 120 Positive >120 :28 CBC WITH MANUAL DIFF (09495) Comments: PATIENT WAS FASTINGClinical Information: ADD DRAW FEE 512013 ADD J 67725 PERFORMED BY: SATHISH [facility] Ylgvhm8797 [facility] [id number] Baso (Absolute) 0.0 {x10E3/uL} (Normal) Range: 0.0-0.2 [...] COMPREHENSIVE Comments: PATIENT WAS FASTINGPERFORMED BY: SATHISH LabCoRehabilitation Hospital of South JerseyNwbbny4063 [facility] [id number] (20772) A/G Ratio 1.6 (Normal) Range: 1.1-2.5 Albumin, [...] Report See Note (Normal) Comments: Exam Number: [id number] 2 VIEWS OF CHEST PA and lateral views of the [facility] There is mild cardiomegaly. There is tortuosityof the aorta. There is n o acute infiltrate, area of consolidation,pleural effusion or vascular congestion identified. Bony structuresare grossly intact. IMPRESSIONNo acute pulmonary abnormality is identified. Reported By: SANJIV MCCOLLUM M.D. : VIT B12 1503 170 pg/mL (Abnormal) Range: 211-911 51 Comments: Performed At: [address] [id number] :19 CBC HCT 46.1 % (Normal) Range: [...] was performed using the TPSA method for [employer] chemistry system.Values obtained with different assay methods [...] pg/mL (Abnormal) Range: 211-911 Comments: Performed At: [address] [id number] Plan of Care Name Dates Details Instructions [...] : Follow up in 2 weeks with [facility] Indication: Smoker Smoker : Follow up [...] Planned Observations CBC, Platelets & Auto Diff (30253)Indication: Testosterone deficiency On: :06 Request Comments: to be done March 2017 HEPATIC FUNCTION PANEL (93441)Indication: Testosterone deficiency On: 57-Sax-416388:06 Request Comments: to be done March 2017 Metabolic Panel, Comprehensive (68113)Indication: Testosterone deficiency On: :06 Request Comments: to be done in March 2017 MICROALBUMIN: CREATININE RATIO (87269) AND (85079)Indication: Hypertension On: 98-Agi-008913:04 Request URINALYSIS (47773)Indication: Hypertension On: 84-Alu-069795:02 Request Urinalysis, Office (21042)Indication: Preop examination On: 26-Zoh-260279:45 Request HgA1C , Office (35838)Indication: Impaired fasting glucose On: 39-Vcm-018105:59 Request MICROALBUMIN: CREATININE RATIO (42195) AND (17572)Indication: Hypertension On: 01-Dec-20158:35 Request Urinalysis, Office (46464)Indication: Abdominal wall pain On: 84-Mev-711281:30 Request Vitamin B-12 (cyanocobalamin) (70738)Indication: B12 deficiency On: :37 Request CALCIFIDIOL (58747) VIT D 25Indication: Vitamin D deficiency, unspecified On: :37 Request METABOLIC PANEL, COMPREHENSIVE (22823)Indication: Hypertension On: :37 Request LIPID PANEL (78262)Indication: Hypertension On: :37 Request CBC with auto diff (53816)Indication: Hypertension On: :37 Request CALCIFEDIOL (64279)Indication: Vitamin D deficiency, unspecified On: 12-Etk-650573:58 Request HgA1C , Office (83498)Indication: Impaired fasting glucose On: 74-Kym-39914:21 Request Blood Glucose , Office (71847)Indication: Impaired fasting glucose On: 86-Hkj-57340:21 Request METABOLIC PANEL, COMPREHENSIVE (19719)Indication: Hypertension On: 36-Thh-605295:15 Request LIPID PANEL (19352)Indication: Hypertension On: 06-San-251198:15 Request CALCIFEDIOL (77683)Indication: Vitamin D deficiency, unspecified On: 1-Pbp-105101:46 Request ALCOHOL, ETHYL (BLOOD) (49857)Indication: Alcohol abuse, continuous drinking behavior On: 62-Prm-558902:45 Request ALCOHOL, ETHYL (BLOOD) (51613)Indication: Other and unspecified alcohol dependence, unspecified drinking behavior On: 79-Nsu-132339:19 Request CALCIUM SERUM (95793)Indication: Dysuria On: 29-Uaf-42716:42 Request Potassium Serum (65017)Indication: Hypopotassemia On: 41-Srd-503921:36 Request Comments: recheck in 2 weeks Magnesium (10710)Indication: Hypopotassemia On: 37-Nkz-362810:36 Request Comments: re check in 2 weeks MAGNESIUM (96961)Indication: Other symptoms and signs involving general sensations and perceptions On: 1-Wga-152403:19 Request Potassium Serum (07379)Indication: Hypopotassemia On: 3-Hqh-391902:29 Request Magnesium (19589)Indication: Hypopotassemia On: 1-Xap-140604:29 Request Phosphorus (89026)Indication: Hypopotassemia On: 3-Exp-508233:29 Request Metabolic Panel, Basic (36867)Indication: Hypopotassemia On: 2-Xra-161616:19 Request TSH (84049)Indication: Abnormal TSH On: 26-Tud-377232:45 Request ASM (ANTI SMOOTH MUSCLE ANTIBODY) (75827)Indication: Elevated LFTs On: 09-Ojl-222881:05 Request CALCIFIDIOL (94153) VIT D 25Indication: Vitamin D deficiency, unspecified On: 82-Ltw-067707:01 Request Metabolic Panel, Comprehensive (31076)Indication: Hypertension On: 81-Vtb-681461:47 Request Drug Screen (Urine 6-Panel) (67780)Indication: Other and unspecified alcohol dependence, unspecified drinking behavior On: 80-Kkv-518740:25 Request THIAMINE (B-1) (54554)Indication: Other and unspecified alcohol dependence, unspecified drinking behavior On: 91-Dnw-096852:24 Request CBC (Auto) (33042)Indication: Fatigue On: 92-Xex-577390:22 Request Lipid Panel (77949)Indication: Hypertension On: 99-Ddm-199498:22 Request Metabolic Panel, Comprehensive (88831)Indication: Fatigue On: 33-Pep-746290:22 Request TSH (81796)Indication: Anxiety On: 98-Hcw-511250:22 Request Vitamin B-12 (cyanocobalamin) (84693)Indication: B12 deficiency On: 95-Lyb-660633:22 Request Hemoglobin Glyclated (HGB A1C) (96997)Indication: Candidiasis, mouth On: 85-Jgl-136558:21 Request HIV-1 ANTIBODY (78328)Indication: Candidiasis, mouth On: 13-Vro-376653:21 Request Vitamin B-12 (cyanocobalamin) (19161)Indication: B12 deficiency On: :26 Request Metabolic Panel, Comprehensive (96841)Indication: Impaired fasting glucose On: :26 Request CALCIFEDIOL (42071)Indication: Vitamin D deficiency, unspecified On: :25 Request METABOLIC PANEL, COMPREHENSIVE (73770)Indication: Hypertension On: 13-Ovr-629450:20 Request LIPID PANEL (77470)Indication: Hypertension On: :20 Request CBC WITH MANUAL DIFF (78931)Indication: Hypertension On: :20 Request Vitamin B-12 (cyanocobalamin) (61918)Indication: B12 deficiency On: :20 Request CALCIFIDIOL (88039) VIT D 25Indication: Fatigue On: :19 Request TSH (42379)Indication: Fatigue On: :19 Request Metabolic Panel, Comprehensive (38751)Indication: Impaired fasting glucose On: 23-Fgi-961554:20 Request Comments: in three months (approximately) Metabolic Panel, Basic (74595)Indication: Hypertension On: 24-Cle-893330:19 Request Comments: 2 weeks CBC (Auto) (96230)Indication: Alcohol abuse, continuous drinking behavior On: 07-Aqn-940217:17 Request Lipid Panel (69469)Indication: Impaired fasting glucose On: 61-Vht-863338:16 Request Comments: in three months (approximately) Methylmalonic acid, serum 52910Jmddoljpro: B12 deficiency On: 72-Cfu-802048:16 Request Comments: in three months (approximately) Vitamin B-12 (cyanocobalamin) (53993)Indication: B12 deficiency On: 25-Bqs-617012:16 Request Comments: in three months (approximately) CCP ANTIBODY (73554)Indication: Pain in unspecified joint On: :56 Request HgA1C , Office (48136)Indication: Impaired fasting glucose On: 26-Yed-206106:40 Request CARINE CULTURE-STOOL (36961)Indication: Diarrhea On: 35-Ros-351196:52 Request C-DIFFICILE, STOOL (70552)Indication: Diarrhea On: :52 Request LEUKOCYTE COUNT, FECAL (13188)Indication: Diarrhea On: :52 Request OCCULT BLOOD FECES SCREEN (54966)Indication: Diarrhea On: :52 Request OVA & PARASITE DIR SMEAR (99139)Indication: Diarrhea On: :52 Request Metabolic Panel, Basic (39165)Indication: Hypertension On: :05 Request Metabolic Panel, Basic (89734)Indication: Hypertension On: :41 Request Vitamin B-12 (cyanocobalamin) (75491)Indication: B12 deficiency On: :41 Request Comments: 8 weeks CBC (Auto) (73678)Indication: Diarrhea On: :07 Request Metabolic Panel, Basic (44476)Indication: Diarrhea On: :07 Request VITAMIN B-12 (CYANOCOBALAMIN) (14584)Indication: B12 deficiency On: :04 Request Comments: methylmalonic acid CARINE CULTURE-STOOL (07275)Indication: Diarrhea On: 6-Gqv-803480:58 Request LEUKOCYTE COUNT, FECAL (48654)Indication: Diarrhea On: :58 Request C.Difficile, Stool (86969)Indication: Diarrhea On: :58 Request OVA & PARASITE DIR SMEAR (34248)Indication: Diarrhea On: 1-Bmq-768790:58 Request Vitamin B-12 (cyanocobalamin) (69795)Indication: B12 deficiency On: 4-Nua-700248:53 Request Planned Procedures Flu Vaccine (Quadrivalent) On: 08-Aug-2018 Intent 99082Ix: Lauryn Hanson Comments: Lot #[id number]-L dltd, IMDose prefilled syringegiven by:LAMAR Sullivan reviewed and ABN signed ELECTROCARDIOGRAM, COMPLETE On: 17-May-2018 Intent (ECG) (00988)By: Devaughn PASTOR, Comments: nsr no acute chg Jazmine ATTENDED SLEEP STUDY (55402)By: On: 08-May-2018 Intent Jailene Mayfield CNP E Jailene Mayfield CNP SPIROMETRY (73541)By: Tran On: 06-Jan-2018 Intent Jailene LOTT E Jailene Mayfield CNP Comments: normal Aerosol Treatment (80652)By: On: 19-Dec-2017 Intent Sue Rooney Comments: Lungs clear after aerosol treatment. 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 Jailene Mayfield CNP Nuclear Stress Test/Stress On: 25-May-2017 Intent SPECT/AdenosineBy: Jailene Mayfield CNP, CNP, Mary E Echo CompleteBy: Tran LOTT, On: 25-May-2017 Intent Jailene Puri CNP Holter Monitor 24 hrsBy: Tran On: 16-May-2017 Intent Jailene LOTT CNP, Mary E ELECTROCARDIOGRAM, COMPLETE On: 16-May-2017 Intent (ECG) (16336)By: Tran LOTT, Comments: sinus bradicardia and widening QT Jailene Puri CNP Ultrasound - ThyroidBy: Tran On: 29-Mar-2017 Intent Jailene LTOT CNP, Mary E Flu Vaccine (Quadrivalent) On: 12-Jan-2017 Intent 57470Uo: Jailene Mayfield CNP Comments: Lot:[id number]:05/27/17Dose:0.5mLRoute:IMSite:L DltdGiven By:JOHANNE signed Jailene Mayfield CNP PNEUM VAC ADLT/IMUMNOSPR, On: 12-Jan-2017 Intent SBC/INTRM (25172)By: Tran LOTT, Comments: Lot:[id number]:04/16/18Dose:0.5mgRoute:imSite:r armGiven By:JOHANNE signed Jailene Puri CNP Radiology - Chest- PA and On: 02-Dec-2016 Intent LatBy: Jazmine Cantor DO Spirometry (88555)By: Devaughn On: 02-Dec-2016 Intent Jazmine PASTOR Comments: obstructive pattern Aerosol Treatment (77133)By: On: 02-Dec-2016 Intent Jazmine Cantor DO Comments: more a/e but still inspir and exp noise - wheeze and rhonchi Solu- Medrol Injection, 125mg On: 02-Dec-2016 Intent (J2930)By: Jazmine Cantor DO Comments: solumedrollot:[id number]:05/16site:rt glutroute:IMdose:125mgD.ANN MARIE Gonzáles CHEST XRAY, PA & LATERAL On: 28-Sep-2016 Intent (81789)By: Tran LOTT, Jailene Mayfield ESTIMATOR, Jailene Vega Radiology - ChestBy: Tran ESTIMATOR, On: 21-Sep-2016 Intent Jailene Mayfield CNP, Jailene Vega ELECTROCARDIOGRAM, COMPLETE On: 21-Sep-2016 Intent (ECG) (20083)By: Esequiel LANGSTON, Comments: sinus rthym Safia Ear Irrigation (24872)By: On: 19-Jul-2016 Intent Jailene Mayfield CNP, CNP, Jailene Vega Wax CurettesBy: Waqar ALBARADO, On: 06-Feb-2016 Intent Jewell Kendall Ear Irrigation (90820)By: On: 06-Feb-2016 Intent Jewell Hadley MD EKG (48012)By: Waqar ALBARADO, On: 17-Jun-2015 Intent Jewell Kendall Comments: see scanned document of test done to see results reviewed today with patient VITAMIN B12 INJECTION On: 27-Mar-2015 Intent (30376)By: Bethany Rehman Comments: Vitaman b12 Lot:[id number]:02/10Route:IMSite:L DeltoidDose: 1 mLgiven by:ANS INJECTION, VITAMIN B-12 On: 27-Mar-2015 Intent CYANOCOBALAMIN, UP TO 1000 MCG (Special Coverage Instructions Apply. See CIM: 45-4 and MCM: 2049) (J3420)By: Jewell Hadley MD Flu Vaccine (Quadrivalent) On: 09-Oct-2014 Intent 59062Px: Jewell Hadley MD ADMINISTRATION OF INFLUENZA On: 09-Oct-2014 Intent VIRUS VACCINE (G0008)By: Jewell Hadley MD PHYSICAL THERAPY EVALUATION On: 17-May-2014 Intent (24140)By: Jailene Mayfield CNP, CNP, Mary E Radiology - Cervical SpineBy: On: 17-May-2014 Intent Tran LOTT AureliaJailene Cary CNP Eprescribed prescriptions On: 26-Mar-2014 Intent (G8553)By: Jewell Hadley MD IMMUNIZATION ADMIN (59907)By: On: 12-Feb-2013 Intent Juan IVISYoli Comments: brought own B-12 Lot #[id number], exp. 11/10. given IM in L deltoid without difficylty or c/o voiced. jq INFUSION, NORMAL SALINE On: 12-Feb-2013 Intent SOLUTION , 1000 CC (Special Comments: Normal Saline, Lot #[id number], exp. June 10 infusing without infiltrate in L AC. JQ Coverage Instructions Apply. See MCM: 2049) (J7030)By: Jailene Mayfield CNP, CNP, Mary E HYDRATION IV INFUSION, INIT On: 12-Feb-2013 Intent (12410)By: Jailene Mayfield CNP Comments: IV initiated in: [...] On: 23-Mar-2010 Intent Jewell Kendall Ear Irrigation (69490)By: On: 23-Mar-2010 Intent Jewell Hadley MD EKG (33590)By: Waqar ALBARADO, On: 23-Mar-2010 Intent Jewell Kendall PHYSICAL THERAPY EVALUATION On: 21-Jan-2010 Intent (85936)By: Tran LOTT, Aurelia Tran LOTT, Aurelia Pnarfkkek-Reh-Zuzd (59775)By: On: 07-Jul-2009 Intent Jazmine Cantor DO EKG (75877)By: Juan LANGSTON, On: 04-Apr-2009 Intent Yoli Ear Irrigation (01693)By: On: 30-Jan-2009 Intent Jewell Hadley MD Spirometry (65026)By: Waqar On: 28-Feb-2008 Intent Jewell ALBARADO Radiology - ChestBy: Waqar On: 18-Jan-2008 Intent Jewell ALBARADO B 12 Injection, 1000 mcg On: 02-Nov-2007 Intent (J3420)By: SHALINI Velazquez Comments: Lot #:[id number] date:ount given:1 ml Route: IMSite given:left deltoid Given by: darryl B 12 Injection, 1000 mcg On: 22-Sep-2007 Intent (J3420)By: Christopher COBIAN, Carolann COLLECT VENOUS BLOOD, On: 25-Aug-2007 Intent VENIPUNCTURE (23111)By: Magda Viveros B 12 Injection, 1000 mcg [...] Injection, 1000 mcg On: 02-Jun-2007 Intent (J3420)By: Seu Lemus Comments: 1000mcg/ml 1 ml given im [...] Velazquez ELECTROCARDIOGRAM, COMPLETE On: 27-Mar-2007 Intent (ECG) (08048)By: Jewell Hadley MD B 12 Injection, 1000 mcg On: 27-Mar-2007 Intent (J3420)By: Jewell Hadley MD Pulse Oximetry (34557)By: On: 27-Mar-2007 Intent Jewell Hadley MD Spirometry (33925)By: Waqar On: 27-Mar-2007 Intent Jewell ALBARADO Radiology [...] and MCM: 2048) (J3420)By: Marianne Beck EKG (27080)By: Waqar ALBARADO, On: 09-Dec-2006 Intent Jewell Kendall [...] enzymes : DISCONTINUED - ALCOHOL, ETHYL (BLOOD) (92387) Indication: Elevated liver enzymes Elevated liver enzymes : DISCONTINUED - HEPATIC FUNCTION PANEL (43574) Indication: Elevated liver enzymes Current smoker : [...] On: 23-Sep-2017 11:20 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 Pertinent medical history includes End: 29-Sep-2016 [...] for the procedure will be doctor antonieta [facility]. Pertinent medical history includes pr End: [...] patient does not have durable power of fire eater or living will. The patient has noticed [...] Note for Leg pain: moving furniture on [facility] felt pop and pull yesterday. troule [...]
--- OUTSIDE RECORDS SUMMARY | 2018-12-20 02:35 | XMS RPT_ITS | Continuity of Care Document ---
:1950 Author Organization [facility] Address [address] [place] [address] Phone Care Team Providers Name Role Phone Jailene Mayfield CNP Unavailable Dr. Ger Gaston Unavailable Jennifer Osuna Unavailable Wesley Sousa Unavailable [facility] Unavailable Blaire ALBARADO, Domenic Mancilla [...] months doing well seeing Rogerio Freitas at [place]. stil work with him on and off. [...] updated, rec. 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 Status: Active Hearing loss of [...] leg cramps (G47.62, 327.52) Comments: using micah TurningArt with help Status: Active Nocturnal leg cramps [...] Comments: two low T's done 09-21-16 and 7-2-28diiusf labs good, recheck psa and then cbc, [...] {Tablet} Refills: 3 Ordered:25-Sep-2018 Tran LOTT Jailene Rdoney LOTT Jailene Vega Start : 25-Sep-2018 Active Micah Mag Zinc +D3 Oral Tablet 1 (one) Tablet Tablet qhs for 0 days Quantity: 30 {Tablet} Refills: 0 Ordered:20-Sep-2017 Tran LOTT Jailene Rodney LOTT Jailene Vega Start : 20-Sep-2017 Active Ergocalciferol 11352 UNIT Oral Capsule 1 (one) Capsule Capsule [...] Ordered:29-Nov-2017 Tran LOTT Jailene Rodney LOTT, Jailene Veag Start : 29-Nov-2017 End : 06-Dec-2017 Inactive [...] Quantity: 21 {Tablet} Refills: 0 Ordered:08-May-2018 Esequiel RESEARCH PSYCHOLOGISTOswald Delgadilloa Start : 19-Dec-2017 End : 08-May-2018 Inactive DEXILANT, 60MG (Oral Capsule Delayed Release) [address] qd for 0 days Quantity: 90 {Capsule_DR} Refills: 3 Ordered:26-Mar-2014 Long RESEARCH PSYCHOLOGIST, Mehnaz L Start : 06-Nov-2012 End : 26-Mar-2014 Inactive DEXILANT, 60MG (Oral Capsule Delayed Release) [address] qd for 0 days Quantity: 90 {Capsule_DR} Refills: 3 Ordered:26-Mar-2014 Long RESEARCH PSYCHOLOGIST, Mehnaz L Start : 06-Nov-2012 End : 26-Mar-2014 Inactive DICYCLOMINE HCL, 20MG (Oral Tablet) uad Tablet BID/PRN for 0 days Quantity: 30 {Tablet} Refills: 3 Ordered:26-Mar-2014 Long RESEARCH PSYCHOLOGIST, Mehnaz L Start : 03-Mar-2011 End : [...] End : 16-Dec-2014 Inactive Comments:watch sunsensitivity DRISDOL, 83909PEUE (Oral Capsule) 1 Capsule three times weekly for 0 days Quantity: 12 {Capsule} Refills: 3 Ordered:26-Mar-2014 Long RESEARCH PSYCHOLOGIST, Mehnaz L Start : 15-Feb-2012 End : [...] PRN for 0 days Refills: 0 Ordered:21-Jul-2007 Martah Garcia End : 09-Dec-2006 Discontinued Lexapro 20 [...] Quantity: 10 {Tablet} Refills: 4 Ordered:21-Mar-2017 Slarb RESEARCH PSYCHOLOGIST, Safia Start : 06-Feb-2016 End : 21-Mar-2017 Discontinued Vitamin B Complex Oral Tablet 1 (one) Tablet daily for 30 days Quantity: 30 {Tablet} Refills: 0 Ordered:13-Jun-2017 Slarb RESEARCH PSYCHOLOGIST, Safia Start : 16-May-2017 End : 13-Jun-2017 Discontinued Vitamin B1 100 MG Oral Tablet 1 (one) Tablet Tablet bid for 0 days Quantity: 30 {Tablet} Refills: 0 Ordered:21-Sep-2016 Slarb RESEARCH PSYCHOLOGIST, Safia Start : 08-Jul-2014 End : 21-Sep-2016 [...] Comments: doing well seeing Rogerio Freitas at [place]. doing well. Currently in remission. doing AA [place] meeting every tuesday. going every other week. [...] ear cyst Surgery Nov Dr. Chauhan at [facility] surgery center Status: Inactive as of [...] W/WO Contrast Result: Comments: See Note; NOTES: [facility] Imaging Services [address] [place] [address] CT Abd/Pelvis W/WO Contrast MR#: [id number] Acct: [id number] Name: WILBERT SEGURA Rep # : [id number] : 1950 M 68 From: Syed Kraft PCP: Jailene Mayfield NP Status: REG CLI Study: CT Abd/Pelvis W/WO Contrast Date of Exam: 08/22/18 Exam# [id number] Ordering Dr: Gloria Batista ORDER PROCESSOR-C STUDY: CT ABDOMEN AND PELVIS WITH AND [...] CC: Jailene Mayfield NP; Gloria Batista NP Elementary Substitute Teacher: Signed 05-Jul-[address] Lung Screening Result: Comments: See Note; NOTES: [facility] Imaging Services [address] [place] [address] Lung Screening MR#: [id number] Acct: [id number] Name: WILBERT SEGURA Toni Rep #: [id number] : 1950 M 68 From: Omar Montes De Oca MD PCP: Jailene Mayfield NP Status: REG CLI Study: Low Dose CT Lung Screening Date of Exam: 07/05/18 Exam# [id number] Ordering Dr: Jhony Yusuf MD STUDY: CT [...] , Service support , CC: Jailene Mayfield ORDER PROCESSOR; Jhony Yusuf MD Elementary Substitute Teacher: Signed 03-Jul-2018 Pelvis 1 or 2 Views Result: Comments: See Note; NOTES: [facility] Imaging Services [address] [place] [address] Pelvis 1 or 2 Views MR#: [id number] Acct: [id number] Name: WILBERT SEGURA Rep #: [id number] : 1950 M 68 From: Yuridia Dey MD PCP: Jailene Mayfield NP Status: REG CLI Study: Pelvis 1 or 2 Views Date of Exam: 07/03/18 Exam# [id number] Ordering Dr: July Mazariegos MD STUDY: X-RAY [...] CC: Jailene Mayfield NP; July Mazariegos MD Elementary Substitute Teacher: Signed 19-Dec-2017 Chest PA and Lateral Result: Comments: See Note; NOTES: [facility] Imaging Services [address] [place] [address] Chest PA and Lateral MR#: [id number] Acct: [id number] Name: WILBERT SEGURA Rep #: [id number] : 1950 M 67 From: Liu Fatima DO PCP: Jailene Mayfield NP Status: REG CLI Study: Chest PA and Lateral Date of Exam: 12/19/17 Exam# [id number] Ordering Dr: Sue Rooney STUDY: X-RAY THANH [...] Signed: Orlando Whalen at 13:03 EST Tel [phone], Service support , CC: Jailene Mayfield NP; ANGELICA Rooney Elementary Substitute Teacher: Signed 19-Dec-2017 Chest PA and Lateral Result: Comments: See Note; NOTES: [facility] Imaging Services [address] [place] [address] Chest PA and Lateral MR#: [id number] Acct: [id number] Name: WILBERT SEGURA Rep #: [id number] : 1950 M 67 From: Liu Fatima DO PCP: Jailene Mayfield NP Status: REG CLI Study: Chest PA and Lateral Date of Exam: 12/19/17 Exam# [id number] Ordering Dr: Sue Rooney STUDY: X-RAY THANH [...] Signed: Orlando Whalen at 13:03 EST Tel [phone], Service support , CC: Jailene Mayfield NP; RUMA-C Sue Rooney Elementary Substitute Teacher: Signed 19-Dec-2017 L/S Spine Min 4 Views Result: Comments: See Note; NOTES: [facility] Imaging Services [address] [place] [address] L/S Spine Min 4 Views MR#: [id number] Acct: [id number] Name: WILBERT SEGURA Rep #: [id number] : 1950 M 67 From: Liu Fatima DO PCP: Jailene Mayfield NP Status: REG CLI Study: L/S Spine Min 4 Views Date of Exam: 12/19/17 Exam# [id number] Ordering Dr: Sue Rooney STUDY: X-RAY - [...] Liu Fatima DO at 13:02 EST Tel [phone], Service support , CC: Jailene Mayfield NP; ANGELICA Rooney Elementary Substitute Teacher: Signed 04-Apr-2017 Thyroid Result: Comments: See Note; NOTES: [facility] Imaging Services [address] [place] [address] Verdana 4d Thyroid MR#: [id number] Acct: [id number] Name: WILBERT SEGURA Rep #: [id number] : 1950 M 67 From: Liu Fatima DO PCP: Jailene Mayfield Status: REG CLI Study: Thyroid Date of Exam: 04/04/17 Exam# [id number] Ordering Dr: Jailene Mayfield STUDY: THYROID ULTRASOUND [...] Liu Fatima DO at 8:53 EDT Tel [phone], Service support , Fax CC: Jailene Mayfield Elementary Substitute Teacher: Signed 02-Dec-2016 Chest PA and Lateral Result: Comments: See Note; NOTES: [facility] Imaging Services [address] [place] [address] Verdana 4d Chest PA and Lateral MR#: [id number] Acct: [id number] Name: WILBERT SEGURA Toni Espinoza #: [id number] : 1950 M 66 From: Liu Fatima DO PCP: Jailene Mayfield Status: REG CLI Study: Chest PA and Lateral Date of Exam: 12/02/16 Exam# [id number] Ordering Dr: Jazmine Cantor DO STUDY: X [...] Liu Fatima DO at 12:13 EST Tel [phone], Service supp ort [phone], CC: Jailene Mayfield; Jazmine Cantor DO Elementary Substitute Teacher: Signed 08-Nov-2016 Chest 1 View (Portable) Result: Comments: See Note; NOTES: [facility] Imaging Services [address] [place] [address] Verdana 4d Chest 1 View (Portable) MR#: [id number] Acct: [id number] Name: WILBERT SEGURA Rep #: [id number] : 1950 66 From: Maxi Arana MD PCP: Jailene Mayfield Status: REG ER Study: Chest 1 View (Portable) Date of Exam: 11/08/16 Exam# [id number] Ordering Dr: Leon Rodrigues MD UDY: X-RAY [...] Maxi Arana MD at 9:02 EST Tel [phone], Service support [phone], CC: Ann Marie Mayfield; Leon Rodrigues MD Elementary Substitute Teacher: Signed 28-Sep-2016 Chest PA and Lateral Result: Comments: See Note; NOTES: [facility] Imaging Services [address] [place] [address] Verdana 4d Chest PA and Lateral MR#: [id number] Acct: [id number] Name: WILBERT SEGURA Rep #: [id number] : 1950 M 66 From: Tree Saul MD PCP: Jailene Mayfield Status: REG CLI Study: Chest PA and Lateral Date of Exam: 09/28/16 Exam# [id number] Ordering Dr: Jailene Mayfield STUDY: X-RA Y [...] MD at 21:06 EDT , Service support [phone], CC: Jailene Mayfield Elementary Substitute Teacher: Signed 21-Sep-2016 Chest PA and Lateral Result: Comments: See Note; NOTES: [facility] Imaging Services [address] [place] [address] Verdana 4d Chest PA and Lateral MR#: [id number] Acct: [id number] Name: WILBERT SEGURA Rep #: [id number] : 1950 M 66 From: Maxi Arana MD PCP: Jailene Mayfield Status: REG CLI Study: Chest PA and Lateral Date of Exam: 09/21/16 Exam# [id number] Ordering Dr: Jailene Mayfield STUDY: X-RAY CHEST [...] Arana MD 2015 at 15:14 EDT Tel [phone], Service support [phone], CC: Jailene Mayfield Elementary Substitute Teacher: Signed 06-Feb-2016 Spirometry (11832) Comments: see scanned document of test done to see results reviewed today with patient Result: 20-May-2014 Cerv Spine 4 or 5 Views Result: Comments: See Note; NOTES: [facility] Imaging Services [address] [place] [address] Radiology Report MR#: [id number] Acct: [id number] Name: WILBERT SEGURA Rep #: [id number] : 1950 M 64 From: Liu Fatima DO PCP: Jewell Hadley MD Status: REG CLI Study: Cerv Spine 4 or 5 Views Date of Exam: 05/20/14 Exam# [id number] Ordering Dr: Jailene Mayfield STUDY: X-RAY - [...] Liu Fatima DO at 9:03 EDT Tel [phone], Service support [phone], CC: Jailene Mayfield; Jewell Hadley MD Elementary Substitute Teacher: Signed Family History Unknown Family Member Name [...] kg/m2 Body Surface Area Calculated 2.09 m2 7-Fad-114850:20 Temperature 98.2 f Pulse 82 /min Comments: [...] Description Value Details :28 CREATININE FINGERSTICK Comments: [facility] [place] [address] [place] [address] CREATININE WB 0.8 mg/dL (Normal) Range: 0.70-1.30 [...] ANTI-ABIGAIL <0.2 {AI} (Normal) Range: 0.0-0.9 :41 Lbvj-Hskijazdkyx-11 AB Comments: [facility] (refer to report for specific site)refer to report for address and phone number ANTISCLER <0.2 {AI} (Normal) Range: 0.0-0.9 :41 ANTINUCLEAR ANTIBODIES DIRECT Comments: [facility] (refer to report for specific site)refer to report for address and phone number ALISON-DIRECT Positive (Abnormal) Comments: Performed at: - [facility] [id number] Director: Ger Gonzalez PhD, Phone: [phone] :41 CBC W/Diff, Automated Comments: [facility] [address] [place], [place], [id number] Absolute Lymph 1.86 {X10_3/ul} (Normal) Range: 0.83-4.51 [...] report for address and phone number ANTI-CCP 983927 5 {units} (Normal) Range: 0-19 Comments: Negative [...] Range: 14-44 :41 Comprehensive Metabolic Profil Comments: [facility] [address] [place], [place], [id number] GAP 5 (Normal) Range: 5-15 CO2 29.0 [...] Comments: Please note revised GLUCOSE reference range uqgizzkoi10/02/2018. :41 Hep B Surface Antibodies Comments: [facility] [...] AG Negative (Normal) Comments: Performed at: - [facility] [id number] Director: Ger Gonzalez PhD, Phone: [phone] at: [facility] [id number] Director: Raghu Bowles PhD, Phone: [phone] at: [facility] [id number] Director: Glenn Armijo MD, Phone: [phone] :41 Hepatitis C Antibodies Comments: [facility] (refer to report for specific site)refer to report for address and phone number HEP C AB <0.1 {s/co_ratio} Range: 0.0-0.9 (Normal) Comments: Negative: < 0.8 Indeterminate: 0.8 - 0.9 Positive: > 0.9 The CDC recommends that a positive HCV antibody result be followed up with a HCV Nucleic Acid Amplification test (004678). : HLA B27 Negative (Normal) Comments: [facility] (refer to report for specific site)refer to report for address and phone number 41 Comments: HLA-B*27 QjbseimiI73 allele interpretation for all loci based on IMGT/HLAdatabase version 3.27This test was developed and its performance characteristicsdetermined by [facility]. It has not been cleared o r approvedby the Food and Drug Administration.[facility] Lab CLIA ID Number [id number] test was performed using PCR (Polymerase ChainReaction)/SSOP (Sequence Specific Oligonucleotide Probes)technique. SBT (Sequence Based Typing) and/or SSP(Sequence Specific Primers) may be used as supplementalmethods when necessary. Please contact [facility] CustomerService at if you have any questions. Director of [facility] Laboratory Dr Raghu Bowles, PhD 8-Mvy-968409:41 Protein+Creatinine Ratio,Urine Comments: [facility] Qgcgyxctod0207 [facility] [address]Deb[address] [place], [place], [id number] PROT:CRE RATIO 102 {mg/g_CRE} (Normal) Range: 0-200 PROTEIN,UR.RAN. 17.0 mg/dL (Abnormal) UR CREAT 166.00 mg/dL (Normal) 5-Jia-972590:41 Urinalysis, Routine (Dipstick) Comments: How was Urine Obtained? [facility] Ihujsqpgtk[address] [facility]. [place], [place], [id number] LEUK ESTERASE 25 /ul (Abnormal) OCCULT BLOOD-UR 10 /ul (Abnormal) NITRITE UR Negative (Normal) UROBILI 4 mg/dL (Abnormal) PROT DIPSTX Negative mg/dL (Normal) pH UR 7.0 (Normal) Range: 5.0 - 8.0 SP.GR. DIPSTX 1.015 (Normal) Range: 1.002-1.030 KETONE UR Negative mg/dL (Normal) BILIRUBIN URINE Negative mg/dL (Normal) GLUCOSE, UR Normal mg/dL (Normal) CLARITY Clear (Normal) COLOR Yellow (Normal) 6-Pbq-826082:35 CBC, Platelets & Auto Diff Comments: PATIENT NOT FASTINGPERFORMED BY: [facility] Zoztci7244 [facility] [id number] ([id number]) Immature Grans (Abs) 0.0 {x10E3/uL} (Normal) Range: [...] 4.14-5.80 WBC 8.2 {x10E3/uL} (Normal) Range: 3.4-10.8 59-Gqb-745034:24 Systemic Lupus Profile A Comments: PATIENT NOT FASTINGPERFORMED BY: [facility] HospitalAphrtd1826 [facility] [id number] Anti-DNA (DS) Ab Qn 16 {IU/mL} Range: 0-9 (Abnormal) Comments: Negative <5 Equivocal 5 - 9 Positive >9 Sjogren's Anti-SS-B <0.2 {AI} (Normal) Range: 0.0-0.9 Sjogren's Anti-SS-A <0.2 {AI} (Normal) Range: 0.0-0.9 Antichromatin Antibodies 0.3 {AI} (Normal) Range: 0.0-0.9 RA Latex Turbid. <10.0 {IU/mL} Range: 0.0-13.9 (Normal) Diaz Antibodies <0.2 {AI} (Normal) Range: 0.0-0.9 PHLEBOTOMIST ASSOCIATE Antibodies <0.2 {AI} (Normal) Range: 0.0-0.9 17-May-2018 Written Authorization WAR (Normal) Comments: PATIENT NOT FASTINGPERFORMED BY: [facility] Fkkbfx8348 [facility] [id number] 11:24 Comments: Written Authorization Received.Authorization received from SHALINI VELAZQUEZ LPN [phone] by Yoli Mcginnis 87-Fyp-727375:24 HGB A1C (97140) Comments: PATIENT NOT FASTINGPERFORMED BY: [facility] Oovhfm4580 [facility] [id number] Hemoglobin A1c 5.7 % (Abnormal) Range: 4.8-5.6 Comments: . Pre-diabetes: 5.7 - 6.4 Diabetes: >6.4 Glycemic control for adults with diabetes: <7.0 39-Mmt-135889:24 EBV ACUTE PFOF IgG/IgM Comments: PATIENT NOT FASTINGPERFORMED BY: [facility] Mflyxb9785 [facility] [id number] ([id number]) Interpretation: [facility] (Normal) Comments: EBV [...] 43.9 Positive >43.9 :24 CMV IGM ANTBDY (97566) Comments: PATIENT NOT FASTINGPERFORMED BY: [facility] Bcofik2747 [facility] [id number] Cytomegalovirus (CMV) Ab, IgM <30.0 AU/mL (Normal) Range: 0.0-29.9 Comments: Negative <30.0 Equivocal 30.0 - 34.9 Positive >34.9 A positive result is generally indicative of acute infection, reactivation or persistent IgM production. :24 CALCIFIDIOL (41969) VIT D 25 Comments: PATIENT NOT FASTINGPERFORMED BY: [facility] Phkbut2273 [facility] [id number] Vitamin D, 25-Hydroxy 63.7 ng/mL (Normal) Range: 30.0-100.0 Comments: Vitamin D deficiency has been defined by the [place] ofUniversity [facility] Medical Centercine and an Endocrine Society practice guideline as alevel of serum 25-OH vitamin D less than 20 ng/mL (1,2).The Endocrine Society went on to further define vitamin Dinsufficiency as a level between 21 and 29 ng/mL (2).1. IOM ([place] of Medicine). 2010. Dietary reference intakes for calcium and D. [place]: The National Academies Press.2. Clifton MF, Robbi NC, Ladarius GONZALES, et al. Evaluation, treatment, and prevention of vitamin D deficiency: an Endocrine Society clinical practice guideline. JCEM. 2010; 96(7):1911-30. 60-Kwk-488078:24 VITAMIN B-12 (CYANOCOBALAMIN) Comments: PATIENT NOT FASTINGPERFORMED BY: [facility] Tmmyvm6004 [facility] [id number] (82195) Vitamin B12 476 pg/mL (Normal) Range: 232-1245 48-Jhx-749129:24 TSH (88601) Comments: PATIENT NOT FASTINGPERFORMED BY: [facility] Jgxtos8563 [facility] [id number] TSH 0.509 {uIU/mL} (Normal) Range: 0.450-4.500 42-Szo-247317:24 SED RATE ERYTHROCYTE (81948) Comments: PATIENT NOT FASTINGPERFORMED BY: [facility] HospitalFkqdto7930 [facility] [id number] Sedimentation Rate-Westergren 2 mm/h (Normal) Range: 0-30 43-Jmn-522400:24 METABOLIC PANEL, COMPREHENSIVE Comments: PATIENT NOT FASTINGPERFORMED BY: [facility] Ygylmy7751 [facility] [id number] (48081) ALT (SGPT) 15 [iU]/L (Normal) Range: 0-44 [...] 8-27 Glucose 101 mg/dL (Abnormal) Range: 65-99 50-Bus-215302:24 C-REACTIVE PROTEIN (06814) Comments: PATIENT NOT FASTINGPERFORMED BY: [place] [address] [facility] [id number] C-Reactive Protein, Quant 5.5 mg/L (Abnormal) Range: 0.0-4.9 56-Ybe-699574:24 CBC (AUTO) (54296) Comments: PATIENT NOT FASTINGPERFORMED BY: [address] [id number] Platelets 232 {x10E3/uL} (Normal) Range: 150-379 RDW 13.4 % (Normal) Range: 12.3-15.4 MCHC 34.2 g/dL (Normal) Range: 31.5-35.7 MCH 33.3 pg (Abnormal) Range: 26.6-33.0 MCV 97 fL (Normal) Range: 79-97 Hematocrit 47.9 % (Normal) Range: 37.5-51.0 Hemoglobin 16.4 g/dL (Normal) Range: 13.0-17.7 RBC 4.92 {x10E6/uL} (Normal) Range: 4.14-5.80 WBC 7.0 {x10E3/uL} (Normal) Range: 3.4-10.8 45-Leb-185065:24 ALISON (ANTINUCLEAR ANTIBODY) Comments: PATIENT NOT FASTINGPERFORMED BY: [address] [id number] (17903) ALISON Direct Positive (Abnormal) :41 MAGNESIUM (95759) Comments: PATIENT NOT FASTINGPERFORMED BY: [place] [address] [facility] [id number] Magnesium 2.2 mg/dL (Normal) Range: 1.6-2.3 36-Eoj-86400:41 TSH (48952) Comments: PATIENT NOT FASTINGPERFORMED BY: [address] [id number] TSH 1.070 {uIU/mL} (Normal) Range: 0.450-4.500 30-Gdt-56114:41 CBC, Platelets & Auto Diff Comments: PATIENT NOT FASTINGPERFORMED BY: [facility]6370 [facility] [id number] (39525) Immature Grans (Abs) 0.0 {x10E3/uL} (Normal) Range: [...] 4.14-5.80 WBC 8.3 {x10E3/uL} (Normal) Range: 3.4-10.8 89-Hlm-16955:41 Metabolic Panel, Comprehensive Comments: PATIENT NOT FASTINGPERFORMED BY: [facility]6370 [facility] [id number] (80908) ALT (SGPT) 16 [iU]/L (Normal) Range: 0-44 [...] 8-27 Glucose 99 mg/dL (Normal) Range: 65-99 51-Nng-356398:20 HgA1C , Office (62983) HgA1C , Office 5.5 % (Normal) Range: 4.6 - 7.1 :31 LIPID PANEL (93137) Comments: PATIENT WAS FASTINGPERFORMED BY: [facility]CoWe[facility] HospitalOcqtmz6877 [facility] [id number] LDL/HDL Ratio 2.1 {ratio_units} (Normal) Range: 0.0-3.6 [...] 173 mg/dL (Normal) Range: 100-199 :31 CALCIFEDIOL (92724) Comments: PATIENT WAS FASTINGPERFORMED BY: [facility]6370 [facility] [id number] Vitamin D, 25-Hydroxy 54.2 ng/mL (Normal) Range: 30.0-100.0 Comments: Vitamin D deficiency has been defined by the [place] ofMedicine and an Endocrine Society practice guideline as alevel of serum 25-OH vitamin D less than 20 ng/mL (1,2).The Endocrine Society went on to further define vitamin Dinsufficiency as a level between 21 and 29 ng/mL (2).1. IOM ([place] of Medicine). 2010. Dietary reference intakes for calcium and D. [place]: The National Academies Press.2. Clifton MF, Robbi MADRID, Ladarius GONZALES, et al. Evaluation, treatment, and prevention of vitamin D deficiency: an Endocrine Society clinical practice guideline. JCEM. 2010; 96(7):1911-30. :31 CBC, Platelets & Auto Diff Comments: PATIENT WAS FASTINGPERFORMED BY: [facility]CoPres[facility] CenterKvhivk5617 [facility] [id number] (48200) Immature Grans (Abs) 0.0 {x10E3/uL} (Normal) Range: [...] 6.4 {x10E3/uL} (Normal) Range: 3.4-10.8 :31 TSH (29478) Comments: PATIENT WAS FASTINGPERFORMED BY: TheBankCloudPresbyterian [facility] Medical CenterDfooqv6713 [facility] [id number] TSH 0.564 {uIU/mL} (Normal) Range: 0.450-4.500 :31 Metabolic Panel, Comprehensive Comments: PATIENT WAS FASTINGPERFORMED BY: IActionablePresbyterian [facility] Medical CenterAxpipt3615 [facility] [id number] (94684) ALT (SGPT) 11 [iU]/L (Normal) Range: 0-44 [...] 110 mg/dL (Abnormal) Range: 65-99 :03 CALCIFEDIOL (71965) Comments: today; PATIENT NOT FASTINGPERFORMED BY: Lyfepoints70 [facility] [id number] Vitamin D, 25-Hydroxy 51.0 ng/mL (Normal) Range: 30.0-100.0 Comments: Vitamin D deficiency has been defined by the [place] of[place]icine and an Endocrine Society practice guideline as alevel of serum 25-OH vitamin D less than 20 ng/mL (1,2).The Endocrine Society went on to further define vitamin Dinsufficiency as a level between 21 and 29 ng/mL (2).1. IOM ([place] of Medicine). 2010. Dietary reference intakes for calcium and D. [place]: The National Academies Press.2. Clifton MF, Robbi NC, Ladarius GONZALES, et al. Evaluation, treatment, and prevention of vitamin D deficiency: an Endocrine Society clinical practice guideline. JCEM. 2010; 96(7):1911-30. :03 VITAMIN B12 AND FOLATES Comments: today; PATIENT NOT FASTINGPERFORMED BY: Lyfepoints70 [facility] [id number] (12317) Folate (Folic Acid), Serum 10.2 ng/mL (Normal) Comments: A serum folate concentration of less than 3.1 ng/mL isconsidered to represent clinical deficiency. Vitamin B12 1184 pg/mL (Abnormal) Range: 211-946 :03 MAGNESIUM (02414) Comments: today; PATIENT NOT FASTINGPERFORMED BY: castaclip6370 [facility] [place] [id number] Magnesium, Serum 2.1 mg/dL (Normal) Range: 1.6-2.3 4-Uzd-643646:09 T4, FREE (THYROXINE) (60707) Comments: PATIENT NOT FASTINGPERFORMED BY: [facility]6370 [facility] [id number] T4,Free(Direct) 1.03 ng/dL (Normal) Range: 0.82-1.77 4-Ujw-973265:09 T3, FREE (TRIDOTHYRONINE) (72276) Comments: PATIENT NOT FASTINGPERFORMED BY: [facility]6370 [facility] [id number] Triiodothyronine,Free,Serum 3.7 pg/mL (Normal) Range: 2.0-4.4 4-Ljg-990068:09 TSH (THYROID STIMULATING Comments: PATIENT NOT FASTINGPERFORMED BY: [facility]Core[facility]6370 [facility] [id number] HORMONE) (92483) TSH 0.464 {uIU/mL} (Normal) Range: 0.450-4.500 18-Ggo-755843:47 CBC, Platelets & Auto Diff Comments: PATIENT NOT FASTINGPERFORMED BY: [facility]asCorewell [facility] Hospital6370 [facility] [id number] (01423) Immature Grans (Abs) 0.0 {x10E3/uL} (Normal) Range: [...] Range: 3.4-10.8 :47 CPK TOTAL & ISOENZYMES (85688) Comments: PATIENT NOT FASTINGPERFORMED BY: TheBankCloudWeisman Children's Rehabilitation HospitalZyaopq0808 [facility] [id number] CK-BB 0 % (Normal) CK-MB 0 % (Normal) Range: 0-3 Macro Type 1 0 % (Normal) CK-MM 100 % (Normal) Range: 97-100 Macro Type 2 0 % (Normal) Creatine Kinase,Total,Serum 182 U/L (Normal) Range: 24-204 :47 CALCIFEDIOL (06766) Comments: PATIENT NOT FASTINGPERFORMED BY: TheBankCloudWeisman Children's Rehabilitation HospitalWmilqo7264 [facility] [id number] Vitamin D, 25-Hydroxy 45.7 ng/mL (Normal) Range: 30.0-100.0 Comments: Vitamin D deficiency has been defined by the [place] ofUniversity [facility] Medical Centercine and an Endocrine Society practice guideline as alevel of serum 25-OH vitamin D less than 20 ng/mL (1,2).The Endocrine Society went on to further define vitamin Dinsufficiency as a level between 21 and 29 ng/mL (2).1. IOM ([place] of Medicine). 2010. Dietary reference intakes for calcium and D. [place]: The National Academies Press.2. Clifton MF, Robbi MADRID, Ladarius GONZALES, et al. Evaluation, treatment, and prevention of vitamin D deficiency: an Endocrine Society clinical practice guideline. JCEM. 2010; 96(7):1911-30. :47 TSH (THYROID STIMULATING Comments: PATIENT NOT FASTINGPERFORMED BY: [facility] Sljsyx7343 [facility] [id number] HORMONE) (14080) TSH 0.367 {uIU/mL} (Abnormal) Range: 0.450-4.500 33-Eex-002634:42 PSA (Medicare - G0103) Comments: today; PATIENT NOT FASTINGPERFORMED BY: CB [facility] Lqhipl8622 [facility] [id number]; OV 01/25/17 (55759) Prostate Specific Ag, 0.6 ng/mL (Normal) Range: 0.0-4.0 Serum Comments: Open PlacesIA methodology. .According to the [place] [employer] Association, Serum PSA shoulddecrease and remain at undetectable levels after radicalprostatectomy. The AUA defines biochemical recurrence as an initialPSA value 0.2 ng/mL or greater followed by a subsequent confirmatoryPSA value 0.2 ng/mL or greater.Values obtained with d ifferent assay methods or kits cannot be usedinterchangeably. Results cannot be interpreted as absolute evidenceof the presence or absence of malignant disease. 96-Jcw-961546:10 CBC, Platelets & Auto Diff Comments: PATIENT WAS FASTINGPERFORMED BY: H[facility]asCorp Txarlv8964 [facility] [id number] (30312) Immature Grans (Abs) 0.0 {x10E3/uL} (Normal) Range: [...] 4.14-5.80 WBC 7.2 {x10E3/uL} (Normal) Range: 3.4-10.8 99-Phw-431410:10 TSH (87843) Comments: PATIENT WAS FASTINGPERFORMED BY: TheBankCloud Jzwtbl1237 [facility] [id number] TSH 0.537 {uIU/mL} (Normal) Range: 0.450-4.500 04-Aui-988676:10 Metabolic Panel, Comprehensive Comments: PATIENT WAS FASTINGPERFORMED BY: LabCoWeisman Children's Rehabilitation HospitalUnmjco8665 [facility] [id number]; ov 01/21 (52075) ALT (SGPT) 16 [iU]/L (Normal) Range: 0-44 [...] Glucose, Serum 83 mg/dL (Normal) Range: 65-99 13-Adn-998469:10 Lipid Panel (06366) Comments: PATIENT WAS FASTINGPERFORMED BY: Lyfepoints70 [facility] [id number] LDL/HDL Ratio 2.0 {ratio_units} (Normal) Range: 0.0-3.6 Comments: LDL/HDL Ratio Men Women 1/2 Avg.Risk 1.0 1.5 Av g.Risk 3.6 3.2 2X Avg.Risk 6.2 5.0 3X Avg.Risk 8.0 6.1 LDL Cholesterol Calc 106 mg/dL (Abnormal) Range: 0-99 VLDL Cholesterol Micah 18 mg/dL (Normal) Range: 5-40 HDL Cholesterol 52 mg/dL (Normal) Triglycerides 88 mg/dL (Normal) Range: 0-149 Cholesterol, Total 176 mg/dL (Normal) Range: 100-199 28-Cvw-336596:10 CALCIFEDIOL (23456) Comments: PATIENT WAS FASTINGPERFORMED BY: castaclip6370 [facility] [id number] Vitamin D, 25-Hydroxy 42.8 ng/mL (Normal) Range: 30.0-100.0 Comments: Vitamin D deficiency has been defined by the [place] ofMedicine and an Endocrine Society practice guideline as alevel of serum 25-OH vitamin D less than 20 ng/mL (1,2).The Endocrine Society went on to further define vitamin Dinsufficiency as a level between 21 and 29 ng/mL (2).1. IOM ([place] of Medicine). 2010. Dietary reference intakes for calcium and D. [place]: The National Academies Press.2. Clifton MF, Robbi MADRID, Ladarius GONZALES, et al. Evaluation, treatment, and prevention of vitamin D deficiency: an Endocrine Society clinical practice guideline. JCEM. 2010; 96(7):1911-30. :50 Basic Metabolic Profile (BMP) Comments: 'TROP' Serial specimen #1, #2, #3, or #4: [address] [place] [address] Xdxvjfpkwk25[address] [place], [address] GAP 3 (Abnormal) Range: 5-15 CO2 26.0 [...] A.D.A. criteria. :50 CBC W/Diff, Automated Comments: [facility] Lquoj[address]eoe[address] [place], [address] ; another doc Absolute Lymph [...] Serial specimen #1, #2, #3, or #4: [facility] Xrtekczgmv[address] [place], [address] TROPONIN-I < 0.02 ng/mL (Normal) Comments: TROPONIN-I EXPECTED VALUES <0.05 NEGATIVE 0.06 - 0.59 AT RISK OF ND > OR = 0.60 SUGGEST ND :40 TESTOSTERONE FREE (68807) Comments: PATIENT NOT FASTINGPERFORMED BY: [address] [id number] Free Testosterone(Direct) 5.8 pg/mL (Abnormal) Range: 6.6-18.1 23-Kav-610039:40 TSH (THYROID STIMULATING Comments: PATIENT NOT FASTINGPERFORMED BY: [address] [id number] BY: [address] [id number] HORMONE) (76081) TSH 0.600 {uIU/mL} (Normal) Range: 0.450-4.500 :40 TESTOSTERONE ,TOT/FREE Comments: PATIENT NOT FASTINGPERFORMED BY: Habeas[address] [id number] BY: [address] [id number] (86488) Free Testosterone(Direct) 5.2 pg/mL (Abnormal) Range: 6.6-18.1 Comment: TESTM (Normal) Comments: Adult male reference interval is based on a population of lean malesup to 40 years old. Testosterone, Serum 275 ng/dL (Abnormal) Range: 348-1197 37-Ryt-808247:40 PT (PROTHROMBIN TIME) Comments: PATIENT NOT FASTINGPERFORMED BY: [address] [id number] BY: [address] [id number] (11406) Prothrombin Time 10.4 {sec} (Normal) Range: 9.1-12.0 INR 1.0 (Normal) Range: 0.8-1.2 Comments: Reference interval is for non-anticoagulated patients. . Suggested INR therapeutic range for Vitamin K anta gonist therapy: Standard Dose (moderate intensity therapeutic range): 2.0 - 3.0 Higher intensity therapeutic range 2.5 - 3.5 07-Vlk-516567:40 CBC, PLATELETS & AUT DIFF Comments: PATIENT NOT FASTINGPERFORMED BY: TheBankCloudAngela Ville 3369270 [facility] [id number] BY: Habeas[address] [id number] (49815) Immature Grans (Abs) 0.0 {x10E3/uL} (Normal) Range: [...] 4.14-5.80 WBC 7.8 {x10E3/uL} (Normal) Range: 3.4-10.8 60-Mvz-449358:40 Metabolic Panel, Basic Comments: PATIENT NOT FASTINGPERFORMED BY: TheBankCloudWeisman Children's Rehabilitation HospitalQkwsbb6581 [facility] [id number] BY: Habeas[address] [id number] (95485) Calcium, Serum 8.9 mg/dL (Normal) Range: 8.6-10.2 [...] Metabolic Panel, Comments: PATIENT NOT FASTINGPERFORMED BY: LabCoWeisman Children's Rehabilitation HospitalAnuxax5393 [facility] [id number] Information: [id number] Comprehensive (85573) ALT (SGPT) 11 [iU]/L (Normal) Range: 0-44 [...] (THYROID STIMULATING Comments: PATIENT NOT FASTINGPERFORMED BY: [facility]ooo[facility] [id number] HORMONE) (14331) TSH 0.483 {uIU/mL} (Normal) Range: 0.450-4.500 :46 MAGNESIUM (69985) Comments: PATIENT NOT FASTINGPERFORMED BY: Tethys BioScienceNovant Health [facility] [id number] Magnesium, Serum 1.9 mg/dL (Normal) Range: 1.6-2.3 :53 MICROALBUMIN: CREATININE RATIO Comments: PATIENT NOT FASTINGPERFORMED BY: Tethys BioScienceNovant Health [facility] [id number] (22855) AND (54797) Microalb/Creat Ratio 3.2 {mg/g_creat} (Normal) Range: 0.0-30.0 Microalbumin, Urine 4.2 ug/mL (Normal) Range: 0.0-17.0 Creatinine, Urine 130.8 mg/dL (Normal) Range: 22.0-328.0 :53 URINALYSIS (94433) Comments: PATIENT NOT FASTINGPERFORMED BY: IActionable Groove ClubCenterpoint Medical Center [id number] Information: [id number] Microscopic Examination MICNIP (Normal) Comments: Microscopic not indicated and not performed. Nitrite, Urine Negative (Normal) Urobilinogen,Semi-Qn 1.0 mg/dL (Normal) Range: 0.2-1.0 Bilirubin Negative (Normal) Occult Blood Negative (Normal) Ketones Negative (Normal) Glucose Negative (Normal) Protein Negative (Normal) WBC Esterase Negative (Normal) Appearance Clear (Normal) Urine-Color Yellow (Normal) pH 7.0 (Normal) Range: 5.0-7.5 Specific [place] 1.027 (Normal) Range: 1.005-1.030 :56 PSA (PROSTATE SPECIFIC Comments: PATIENT WAS FASTINGPERFORMED BY: castaclip6370 [facility] [id number] ANTIGEN) (V76.44) Prostate Specific Ag, 0.6 ng/mL (Normal) Range: 0.0-4.0 Serum Comments: Open PlacesIA methodology. .According to the [place] [employer] Association, Serum PSA shoulddecrease and remain [...] PANEL, COMPREHENSIVE Comments: PATIENT WAS FASTINGPERFORMED BY: castaclip6370 [facility] [id number] (81353) ALT (SGPT) 12 [iU]/L (Normal) Range: 0-44 [...] mg/dL (Abnormal) Range: 65-99 :56 LIPID PANEL (42794) Comments: PATIENT WAS FASTINGPERFORMED BY: [facility] [id number] LDL/HDL Ratio 2.4 {ratio_units} (Normal) Range: 0.0-3.6 [...] auto diff Comments: PATIENT WAS FASTINGPERFORMED BY: castaclip6370 [facility] [id number] Information: [id number] (53290) Immature Grans (Abs) 0.0 {x10E3/uL} (Normal) Range: [...] 7.3 {x10E3/uL} (Normal) Range: 3.4-10.8 01-Dec-20158:56 CALCIFIDIOL (12775) VIT D 25 Comments: PATIENT WAS FASTINGPERFORMED BY: LabCoWeisman Children's Rehabilitation HospitalWraqyn3242 [facility] [id number] Vitamin D, 25-Hydroxy 45.0 ng/mL (Normal) Range: 30.0-100.0 Comments: Vitamin D deficiency has been defined by the [place] ofMedicine and an Endocrine Society practice guideline as alevel of serum 25-OH vitamin D less than 20 ng/mL (1,2).The Endocrine Society went on to further define vitamin Dinsufficiency as a level between 21 and 29 ng/mL (2).1. IOM ([place] of Medicine). 2010. Dietary reference intakes for calcium and D. [place]: The National Academies Press.2. Clifton MF, Robbi NC, Ladarius GONZALES, et al. Evaluation, treatment, and prevention of vitamin D deficiency: an Endocrine Society clinical practice guideline. JCEM. 2010; 96(7):1911-30. :20 HgA1C , Office (80133) HgA1C , Office 5.9 % (Normal) Range: 4.6 - 7.1 :36 Vitamin B-12 (cyanocobalamin) Comments: PATIENT NOT FASTINGPERFORMED BY: [facility] Tjpxpo9871 Perry RoadDublin [place] [id number] (47749) Vitamin B12 1444 pg/mL (Abnormal) Range: 211-946 :36 CALCIFIDIOL (50134) VIT D 25 Comments: PATIENT NOT FASTINGPERFORMED BY: CB [facility] Akzlyv1456 Perry RoadDublin [place] [id number] Vitamin D, 25-Hydroxy 32.0 ng/mL (Normal) Range: 30.0-100.0 Comments: Vitamin D deficiency has been defined by the [place] ofUniversity [facility]als [facility] Medical Centercine and an Endocrine Society practice guideline as alevel of serum 25-OH vitamin D less than 20 ng/mL (1,2).The Endocrine Society went on to further define vitamin Dinsufficiency as a level between 21 and 29 ng/mL (2).1. IOM ([place] of Medicine). 2010. Dietary reference intakes for calcium and D. [place]: The National Academies Press.2. Clifton MF, Robbi NC, Ladarius GONZALES, et al. Evaluation, treatment, and prevention of vitamin D deficiency: an Endocrine Society clinical practice guideline. JCEM. 2010; 96(7):1911-30. :36 TSH (50423) Comments: PATIENT NOT FASTINGPERFORMED BY: CB [facility] Wylcin8996 Perry RoadDublin [place] [id number] Information: [id number] TSH 0.575 {uIU/mL} (Normal) Range: 0.450-4.500 :51 CBC With Differential/Platelet Comments: PATIENT WAS FASTINGPERFORMED BY: CB [facility] Hjgynh6564 Perry RoadDublin [place] [id number] Information: [id number] Immature Grans (Abs) 0.0 {x10E3/uL} (Normal) Range: [...] 4.14-5.80 WBC 7.3 {x10E3/uL} (Normal) Range: 3.4-10.8 4-Ffv-547417:51 Comp. Metabolic Panel (14) Comments: PATIENT WAS FASTINGPERFORMED BY: LabCoWeisman Children's Rehabilitation HospitalXihbkf3586 [facility] [id number] ALT (SGPT) 15 [iU]/L (Normal) Range: 0-44 [...] With LDL/HDL Comments: PATIENT WAS FASTINGPERFORMED BY: [facility]ooo[facility] [id number] Ratio LDL/HDL Ratio 2.1 {ratio_units} Range: 0.0-3.6 [...] pg/mL (Normal) Comments: PATIENT WAS FASTINGPERFORMED BY: Lyfepoints70 [facility] [id number] 1:51 Range: 211-946 Vitamin D, 25-Hydroxy 40.7 ng/mL (Normal) Comments: PATIENT WAS FASTINGPERFORMED BY: [facility]asExcels[facility] Umrckv8637 [facility] [id number] 1:51 Range: 30.0-100.0 Comments: Vitamin D deficiency has been defined by the [place] ofMedicine and an Endocrine Society practice guideline as alevel of serum 25-OH vitamin D less than 20 ng/mL (1,2).The Endocrine Society went on to further define vitamin Dinsufficiency as a level between 21 and 29 ng/mL (2).1. IOM ([place] of Medicine). 2010. Dietary reference intakes for calcium and D. [place]: The National Academies Press.2. Robbi Morales, Ladarius GONZALES, et al. Evaluation, treatment, and prevention of vitamin D deficiency: an Endocrine Society clinical practice guideline. JCEM. 2010; 96(7):1911-30. 13-Jxo-188548:22 CALCIFIDIOL (07510) VIT D Comments: PATIENT NOT FASTINGPERFORMED BY: [facility]asEx[facility] Himrdp8658 [facility] [id number] Information: [id number] 25 Vitamin D, 25-Hydroxy 31.8 ng/mL (Normal) Range: 30.0-100.0 Comments: Vitamin D deficiency has been defined by the [place] ofMedicine and an Endocrine Society practice guideline as alevel of serum 25-OH vitamin D less than 20 ng/mL (1,2).The Endocrine Society went on to further define vitamin Dinsufficiency as a level between 21 and 29 ng/mL (2).1. IOM ([place] Medicine). 2010. Dietary reference intakes for calcium and D. [place]: The National Academies Press.2. Robbi Morales, Ladarius GONZALES, et al. Evaluation, treatment, and prevention of vitamin D deficiency: an Endocrine Society clinical practice guideline. JCEM. 2010; 96(7):1911-30. One Specimen SPRCS (Normal) Comments: PATIENT NOT FASTINGPERFORMED BY: [facility] Hospitalton1447 [facility] [id number] BY: [facility]6370 [facility] [id number] 1:25 Identifier Comments: The specimen received included only one patient identifier on theprimary collection container. Our laboratory accrediting agencystates All primary specimen containers must be labeled with 2identifiers at the time of collection. 90-Yjb-302866:25 THIAMINE (B-1) (75748) Comments: PATIENT NOT FASTINGPERFORMED BY: TheBankCloudCarrier ClinicOfveqoigeu0267 [facility] [id number] BY: [facility]asCorewell [facility]6370 [facility] [id number] Vit. B1, Whole Blood 159.7 nmol/L (Normal) Range: 66.5-200.0 24-Hca-612064:08 CBC (Auto) (04727) Comments: PATIENT WAS FASTINGPERFORMED BY: [facility]6370 [facility] [id number] Information: [id number] Platelets 202 {x10E3/uL} (Normal) Range: 150-379 RDW 12.6 % (Normal) Range: 12.3-15.4 MCHC 34.3 g/dL (Normal) Range: 31.5-35.7 MCH 31.3 pg (Normal) Range: 26.6-33.0 MCV 91 fL (Normal) Range: 79-97 Hematocrit 44.0 % (Normal) Range: 37.5-51.0 Hemoglobin 15.1 g/dL (Normal) Range: 12.6-17.7 RBC 4.83 {x10E6/uL} (Normal) Range: 4.14-5.80 WBC 8.2 {x10E3/uL} (Normal) Range: 3.4-10.8 92-Rso-401690:08 PTT (Activated Partial Comments: PATIENT WAS FASTINGPERFORMED BY: [facility]6370 [facility] [id number] Thromboplastin Time) (67893) aPTT 31 {sec} (Normal) Range: 24-33 Comments: This test has not been validated for monitoring unfractionated heparintherapy. aPTT-based therapeutic ranges for unfractionated heparintherapy have not been established. For general guidelines onHeparin monitoring, refer to the [facility]Ex[facility] Directory of Services. :08 PT (Prothrobim Time) (68205) Comments: PATIENT WAS FASTINGPERFORMED BY: SATHISH [facility]6370 [facility] [id number] Prothrombin Time 10.4 {sec} (Normal) Range: 9.1-12.0 INR 1.0 (Normal) Range: 0.8-1.2 Comments: Reference interval is for non-anticoagulated patients. . Suggested INR therapeutic range for Vitamin K anta gonist therapy: Standard Dose (moderate intensity therapeutic range): 2.0 - 3.0 Higher intensity therapeutic range 2.5 - 3.5 :09 CALCIFIDIOL (72039) VIT D 25 Comments: PATIENT WAS FASTINGPERFORMED BY: SATHISH [facility]6370 [facility] [id number] Vitamin D, 25-Hydroxy 15.8 ng/mL (Abnormal) Range: 30.0-100.0 Comments: Vitamin D deficiency has been defined by the [place] ofMedicine and an Endocrine Society practice guideline as alevel of serum 25-OH vitamin D less than 20 ng/mL (1,2).The Endocrine Society went on to further define vitamin Dinsufficiency as a level between 21 and 29 ng/mL (2).1. IOM ([place] of Medicine). 2010. Dietary reference intakes for calcium and D. [place]: The National Academies Press.2. Clifton MF, Robbi NC, Ladarius GONZALES, et al. Evaluation, treatment, and prevention of vitamin D deficiency: an Endocrine Society clinical practice guideline. JCEM. 2010; 96(7):1911-30. :09 Vitamin B-12 (cyanocobalamin) Comments: PATIENT WAS FASTINGPERFORMED BY: [facility]6370 [facility] [id number] (73401) Vitamin B12 399 pg/mL (Normal) Range: 211-946 70-Tcx-384980:09 METABOLIC PANEL, Comments: PATIENT WAS FASTINGPERFORMED BY: SATHISH [employer] Grouplin6370 [facility] [id number] Information: [id number] ORDER COMPREHENSIVE (19002) ALT (SGPT) 15 [iU]/L (Normal) Range: 0-44 [...] Glucose, Serum 86 mg/dL (Normal) Range: 65-99 10-Vwi-821646:09 LIPID PANEL (71520) Comments: PATIENT WAS FASTINGPERFORMED BY: TheBankCloudWeisman Children's Rehabilitation HospitalLbglrv3739 [facility] [id number] LDL/HDL Ratio 2.0 {ratio_units} (Normal) Range: 0.0-3.6 [...] Cholesterol, Total 132 mg/dL (Normal) Range: 100-199 0-Pbg-224161:05 Microscopic Examination Comments: PATIENT NOT FASTINGPERFORMED BY: TheBankCloudWeisman Children's Rehabilitation HospitalLociuf7836 [facility] [id number] Bacteria Few (Normal) Mucus Threads Present (Normal) Epithelial Cells (non renal) 0-10 {/hpf} (Normal) Range: 0 - 10 RBC 0-2 {/hpf} (Normal) Range: 0 - 2 WBC 6-10 {/hpf} (Abnormal) Range: 0 - 5 8-Ktb-309522:05 URINALYSIS (51413) Comments: PATIENT NOT FASTINGPERFORMED BY: TheBankCloudWeisman Children's Rehabilitation HospitalMqhrem1930 [facility] [id number] Information: [id number] Microscopic Examination See below: (Normal) Comments: Microscopic was indicated and was performed. Nitrite, Urine Negative (Normal) Urobilinogen,Semi-Qn 1.0 mg/dL (Normal) Range: 0.0-1.9 Bilirubin Negative (Normal) Occult Blood Negative (Normal) Ketones Negative (Normal) Glucose Negative (Normal) Protein Negative (Normal) WBC Esterase Trace (Abnormal) Appearance Clear (Normal) Urine-Color Yellow (Normal) pH 6.0 (Normal) Range: 5.0-7.5 Specific [place] 1.023 (Normal) Range: 1.005-1.030 :12 PSA (PROSTATE SPECIFIC Comments: PATIENT NOT FASTINGPERFORMED BY: HabeasKaitlyn Ville 6109670 [facility] [id number] Information: [id number] ANTIGEN) (V76.44) Prostate Specific Ag, 0.5 ng/mL (Normal) Range: 0.0-4.0 Serum Comments: Mónica ECLIA methodology. .According to the [place] [employer] Association, Serum PSA shoulddecrease and remain at undetectable levels after radicalprostatectomy. The AUA defines biochemical recurrence as an initialPSA value 0.2 ng/mL or greater followed by a subsequent confirmatoryPSA value 0.2 ng/mL or greater.Values obtained with d ifferent assay methods or kits cannot be usedinterchangeably. Results cannot be interpreted as absolute evidenceof the presence or absence of malignant disease. 20-Pqk-103041:16 HgA1C , Office (05588) HgA1C , Office 5.7 % (Normal) Range: 4.6 - 7.1 36-Chs-958458:31 Ethanol, Blood Comments: PATIENT WAS FASTINGPERFORMED BY: TheBankCloud[address] [id number] BY: [place] 8560570 [facility] [id number] Inf ormation: [id number] Ethanol 0.094 % (Normal) Comments: Verified by repeat analysis Written Authorization WAR (Normal) Comments: PATIENT WAS FASTINGPERFORMED BY: TheBankCloud[address] [id number] BY: [place] 8560570 [facility] [id number] :31 Comments: Written Authorization Received.Authorization received from PER ORIGINAL ORDER [id number] by Avelina Glez 07-Nzb-562686:37 PTT (Activated Partial Comments: PATIENT WAS FASTINGPERFORMED BY: Habeas[address] [id number] BY: [address] [id number] Thromboplastin Time) (21110) aPTT 31 {sec} (Normal) Range: 24-33 Comments: This test has not been validated for monitoring unfractionated heparintherapy. aPTT-based therapeutic ranges for unfractionated heparintherapy have not been established. For general guidelines onHeparin monitoring, refer to the [facility] Directory of Services. 02-Yzg-129793:37 PT (Prothrobim Time) Comments: PATIENT WAS FASTINGPERFORMED BY: LabCoWeisman Children's Rehabilitation HospitalPnwekt0260 [facility] [id number] BY: [address] [id number] (20982) Prothrombin Time 10.9 {sec} (Normal) Range: 9.1-12.0 INR 1.0 (Normal) Range: 0.8-1.2 Comments: Reference interval is for non-anticoagulated patients. . Suggested INR therapeutic range for Vitamin K anta gonist therapy: Standard Dose (moderate intensity therapeutic range): 2.0 - 3.0 Higher intensity therapeutic range 2.5 - 3.5 1-Tmd-141245:37 DRUG SCREEN (42804) Comments: PATIENT NOT FASTINGPERFORMED BY: [facility]CoMc[facility] HPG5470 [address] [facility] [id number] Information: [id number] CCU:[id number] LM Ethanol U, Rich Negative % (Normal) Phencyclidine Negative ng/mL (Normal) Opiates Negative ng/mL (Normal) Comments: Opiate test includes Codeine and Morphine only. Cannabinoid Negative ng/mL (Normal) Cocaine (Metab.) Negative ng/mL (Normal) Benzodiazepines Negative ng/mL (Normal) Barbiturate Negative ng/mL (Normal) Amphetamines, Urine Negative ng/mL (Normal) Comments: Amphetamine test includes Amphetamine and Methamphetamine. :37 T4, FREE (THYROXINE) Comments: PATIENT WAS FASTINGPERFORMED BY: LabCoWeisman Children's Rehabilitation HospitalEtefti7894 [facility] [id number] BY: Lab[address] [id number] (71521) T4,Free(Direct) 1.14 ng/dL (Normal) Range: 0.82-1.77 :38 HgA1C , Office (36624) HgA1C , Office 5.3 % (Normal) Range: 4.6 - 7.1 :38 Blood Glucose , Office (04790) Blood Glucose , Office 87 (Normal) 78-Fae-170723:38 HgA1C , Office (98535) HgA1C , Office 5.3 % (Normal) Range: 4.6 - 7.1 83-Uqx-656098:37 RHEUMATOID FACTOR-QUANT Comments: PATIENT WAS FASTINGPERFORMED BY: TheBankCloudPresbyterian Santa Fe Medical CenterXhgjgm5897 [facility] [id number] BY: [address] [id number] (37005) RA Latex Turbid. 9.9 {IU/mL} (Normal) Range: 0.0-13.9 02-Ayv-612601:37 CCP ANTIBODY (21276) Comments: PATIENT WAS FASTINGPERFORMED BY: TheBankCloudAngela Ville 3369270 [facility] [id number] BY: [address] [id number] CCP Antibodies IgG/IgA 9 {units} (Normal) Range: 0-19 Comments: Negative <20 Weak positive 20 - 39 Moderate positive 40 - 59 Strong positive >59 09-Sxq-040285:37 ALISON (ANTINUCLEAR ANTIBODY) Comments: PATIENT WAS FASTINGPERFORMED BY: TheBankCloud Lyelhx5564 [facility] [id number] BY: [address] [id number] (47320) ALISON Direct Negative (Normal) 31-Odh-339061:37 Creatine Kinase Total Comments: PATIENT WAS FASTINGPERFORMED BY: TheBankCloudAngela [place] 3369270 [facility] [id number] BY: [address] [id number] (74835) Creatine Kinase,Total,Serum 199 U/L (Normal) Range: 24-204 13-Qrm-876098:37 C-Reactive Protein Comments: PATIENT WAS FASTINGPERFORMED BY: TheBankCloud Onpejm4657 [facility] [id number] BY: [address] [id number] (86562) C-Reactive Protein, Quant 0.9 mg/L (Normal) Range: 0.0-4.9 :37 Methymalonic Acid, Serum Comments: PATIENT WAS FASTINGPERFORMED BY: [facility] Owoppx1152 [address] Road[address] [place] [id number] BY: [address] [id number] (74387) Methylmalonic Acid, Serum 110 nmol/L (Normal) Range: 0-378 Comments: Please note reference interval change :37 Vitamin B-12 Comments: PATIENT WAS FASTINGPERFORMED BY: [facility] Phwehn5346 Perry RoadDublin [place] [id number] BY: [address] [id number] (cyanocobalamin) (86275) Vitamin B12 293 pg/mL (Normal) Range: 211-946 :37 CALCIFIDIOL (20598) VIT D Comments: PATIENT WAS FASTINGPERFORMED BY: [facility] Ohnlzm4769 Perry RoadDublin [place] [id number] BY: [address] [id number] 25 Vitamin D, 25-Hydroxy 12.6 ng/mL (Abnormal) Range: 30.0-100.0 Comments: Vitamin D deficiency has been defined by the [place] of[place]icine and an Endocrine Society practice guideline as alevel of serum 25-OH vitamin D less than 20 ng/mL (1,2).The Endocrine Society went on to further define vitamin Dinsufficiency as a level between 21 and 29 ng/mL (2).1. IOM ([place] of [employer]). 2010. Dietary reference intakes for calcium and D. [place]: The National Academies Press.2. Clifton MF, Robbi NC, Ladarius GONZALES, et al. Evaluation, treatment, and prevention of vitamin D deficiency: an Endocrine Society clinical practice guideline. JCEM. 2010; 96(7):1911-30. :37 CBC with manual diff Comments: PATIENT WAS FASTINGPERFORMED BY: CB [facility] Jnaeub1905 Perry RoadDublin [place] [id number] BY: TheBankCloud[address] [id number] Inf ormation: [id number] (27611) Immature Grans (Abs) 0.0 {x10E3/uL} (Normal) Range: [...] 4.14-5.80 WBC 6.0 {x10E3/uL} (Normal) Range: 3.4-10.8 41-Isj-127330:37 HEPATIC FUNCTION PANEL Comments: PATIENT WAS FASTINGPERFORMED BY: LabCoWeisman Children's Rehabilitation HospitalYwxqsw1082 [facility] [id number] BY: TheBankCloud[address] [id number] (34947) Bilirubin, Direct 0.55 mg/dL (Abnormal) Range: 0.00-0.40 74-Ntb-435392:37 TSH (THYROID STIMULATING Comments: PATIENT WAS FASTINGPERFORMED BY: TheBankCloud[address] [id number] BY: [address] [id number] HORMONE) (06278) TSH 0.551 {uIU/mL} (Normal) Range: 0.450-4.500 84-Adu-483784:37 Lipid Panel (25708) Comments: PATIENT WAS FASTINGPERFORMED BY: TheBankCloud[address] [id number] BY: [address] [id number] LDL/HDL Ratio 0.8 {ratio_units} (Normal) Range: 0.0-3.6 LDL Cholesterol Calc 99 mg/dL (Normal) Range: 0-99 VLDL Cholesterol Micah 15 mg/dL (Normal) Range: 5-40 HDL Cholesterol 127 mg/dL (Normal) Comments: Results confirmed ondilution.According to ATP-III Guidelines, HDL-C >59 mg/dL is considered anegative risk factor for CHD. Triglycerides 77 mg/dL (Normal) Range: 0-149 Cholesterol, Total 241 mg/dL (Abnormal) Range: 100-199 88-Ykp-093414:37 Metabolic Panel, Comments: PATIENT WAS FASTINGPERFORMED BY: TheBankCloud[address] [id number] BY: Habeas[address] [id number] Comprehensive (24024) ALT (SGPT) 61 [iU]/L (Abnormal) Range: 0-44 [...] Glucose, Serum 90 mg/dL (Normal) Range: 65-99 40-Fmf-707292:33 Ethanol, Blood Comments: PATIENT NOT FASTINGPERFORMED BY: [employer]able Uikmam72[address] [place] [address] [id number] BY: [place] [id number] Ethanol 0.085 % (Normal) Comments: Verified by repeat analysis 17-Hbu-099143:33 Magnesium (38259) Comments: PATIENT NOT FASTINGPERFORMED BY: IActionable[address] [id number] BY: [address] [id number] Magnesium, Serum 1.6 mg/dL (Normal) Range: 1.6-2.6 95-Jts-275067:33 Methymalonic Acid, Serum Comments: PATIENT NOT FASTINGPERFORMED BY: IActionableWeisman Children's Rehabilitation HospitalMkynmt025[address] [place] [address] [id number] BY: [address] [id number] (46009) Methylmalonic Acid, Serum 78 nmol/L (Normal) Range: 73-376 Comments: The reference range for methylmalonic acid has been set at +3sd abovethe mean for healthy blood bank donors. In the clinical assessment ofpatients with megaloblastic anemias a cutoff of +3sd provides gr eaterspecificity in the diagnosis of the vitamin deficiency states,despite the sacrifice of some sensitivity. 88-Oiq-494513:33 Vitamin B-12 Comments: PATIENT NOT FASTINGPERFORMED BY: [employer] Bdwtlj5076 [facility] [id number] BY: Habeas[address] [id number] (cyanocobalamin) (58619) Vitamin B12 449 pg/mL (Normal) Range: 211-946 62-Oof-613048:33 TSH (13533) Comments: PATIENT NOT FASTINGPERFORMED BY: [email or web address] LabLife360 Vwihlt0185 [facility] [id number] BY: TheBankCloud[address] [id number] TSH 0.654 {uIU/mL} (Normal) Range: 0.450-4.500 61-Vph-487208:33 METABOLIC PANEL, Comments: PATIENT NOT FASTINGPERFORMED BY: [place] 3369270 [facility] [id number] BY: Habeas[address] [id number] Inf ormation: [id number] COMPREHENSIVE (99967) ALT (SGPT) 88 [iU]/L (Abnormal) Range: 0-44 [...] Range: 65-99 :49 Blood Glucose , Office (99878) Blood Glucose , Office 90 (Normal) :49 HgA1C , Office (33268) HgA1C , Office 5.3 % (Normal) Range: 4.6 - 7.1 :07 MAGNESIUM (42134) Comments: PATIENT NOT FASTINGPERFORMED BY: TrackIFlin6370 [facility] [id number] Magnesium, Serum 1.3 mg/dL (Abnormal) Range: 1.6-2.6 85-Pim-502212:07 PSA (PROSTATE SPECIFIC Comments: PATIENT NOT FASTINGPERFORMED BY: [employer] Sxzzlo1093 [facility] [id number] ANTIGEN) (03041) Prostate Specific Ag, 0.8 ng/mL (Normal) Range: 0.0-4.0 Serum Comments: Mónica ECLIA methodology. .According to the [place] [employer], Serum PSA shoulddecrease and remain at undetectable levels after radicalprostatectomy. The AUA defines biochemical recurrence as an initialPSA value 0.2 ng/mL or greater followed by a subsequent confirmatoryPSA value 0.2 ng/mL or greater.Values obtained with d ifferent assay methods or kits cannot be usedinterchangeably. Results cannot be interpreted as absolute evidenceof the presence or absence of malignant disease. 95-Btr-846747:07 Metabolic Panel, Comments: PATIENT NOT FASTINGPERFORMED BY: SATHISH [facility] Njcpze5413 [place] [id number] Information: ADD [id number] AND DRAW FEE 99 3560 Comprehensive (70435) ALT (SGPT) 74 [iU]/L (Abnormal) Range: 0-44 [...] Glucose, Serum 98 mg/dL (Normal) Range: 65-99 46-Kpj-84629:00 Urinalysis, Office (56316) UA - BILIRUBIN Negative (Normal) UA - BLOOD Non Hemolyzed Trace (Normal) UA - GLUCOSE Negative (Normal) UA - KETONES Negative mg/dL (Normal) UA - LEUKOCYTE ESTERASE Negative (Normal) UA - NITRITE Negative (Normal) UA - PH 7.0 (Normal) UA - PROTEIN Negative mg/dL (Normal) UA - SPECIFIC GRAVITY 1.015 (Normal) URINE UROBILINGN RICH TIMED Normal mg/dL (Normal) 43-Qfj-808494:32 Potassium Serum (07596) Comments: PATIENT NOT FASTINGPERFORMED BY: HabeasKaitlyn V[place] 6109670 [facility] [id number] Information: [id number],[id number] Potassium, Serum 4.0 mmol/L (Normal) Range: 3.5-5.2 44-Wfm-624015:32 Magnesium (11357) Comments: PATIENT NOT FASTINGPERFORMED BY: HabeasKaitlyn [place] 6109670 [facility] [id number] Magnesium, Serum 1.7 mg/dL (Normal) Range: 1.6-2.6 Magnesium, Serum 1.4 mg/dL Comments: PATIENT WAS FASTINGPERFORMED BY: HabeasKaitlyn [place] 6109670 [facility] [id number] :32 (Abnormal) Range: 1.6-2.6 Written Authorization WAR (Normal) Comments: PATIENT WAS FASTINGPERFORMED BY: HabeasKaitlyn [place] 6109670 [facility] [id number] :32 Comments: Written Authorization Received.Authorization received from JEWELL HADLEY [id number] by Kenisha Lozano :32 Metabolic Panel, Basic Comments: PATIENT WAS FASTINGPERFORMED BY: LabKaitlyn Ville 6109670 [facility] [id number] BY: [place] 984977 [facility] [id number] (89918) Calcium, Serum 9.1 mg/dL (Normal) Range: 8.6-10.2 [...] FUNCTION PANEL Comments: PATIENT WAS FASTINGPERFORMED BY: OneStopWeb [facility] [id number] BY: TheBankCloud[address] [id number] (20330) ALT (SGPT) 72 [iU]/L (Abnormal) Range: 0-55 AST (SGOT) 88 [iU]/L (Abnormal) Range: 0-40 Alkaline Phosphatase, S 74 [iU]/L (Normal) Range: 25-160 Bilirubin, Direct 0.57 mg/dL (Abnormal) Range: 0.00-0.40 Bilirubin, Total 1.3 mg/dL (Abnormal) Range: 0.0-1.2 Albumin, Serum 4.5 g/dL (Normal) Range: 3.6-4.8 Protein, Total, Serum 7.1 g/dL (Normal) Range: 6.0-8.5 :32 CALCIFIDIOL (96638) VIT D Comments: PATIENT WAS FASTINGPERFORMED BY: TrackIFlin6370 [facility] [id number] BY: TheBankCloud[address] [id number] 25 Vitamin D, 25-Hydroxy 39.6 ng/mL (Normal) Range: 30.0-100.0 Comments: Vitamin D deficiency has been defined by the [place] of[place] and an Endocrine Society practice guideline as alevel of serum 25-OH vitamin D less than 20 ng/mL (1,2).The Endocrine Society went on to further define vitamin Dinsufficiency as a level between 21 and 29 ng/mL (2).1. IOM ([place] of [employer]). 2010. Dietary reference intakes for calcium and D. [place]u [place]: The National Academies Press.2. Clifton MF, Robbi MADRID, Ladarius GONZALES, et al. Evaluation, treatment, and prevention of vitamin D deficiency: an Endocrine Society clinical practice guideline. JCEM. 2010; 96(7):1911-30. :32 Vitamin B-12 (cyanocobalamin) Comments: PATIENT WAS FASTINGPERFORMED BY: [facility] Jmpuyx2662 [facility] [id number] BY: [address] [id number] (41919) Vitamin B12 557 pg/mL (Normal) Range: 211-946 :32 TSH (71364) Comments: PATIENT WAS FASTINGPERFORMED BY: [facility] Jwcgkk9970 [facility] [id number] BY: [address] [id number] TSH 0.507 {uIU/mL} (Normal) Range: 0.450-4.500 :32 T4, FREE (THYROXINE) Comments: PATIENT WAS FASTINGPERFORMED BY: LabLife360 Siauzu6455 [facility] [id number] BY: [address] [id number] (43965) T4,Free(Direct) 1.07 ng/dL (Normal) Range: 0.82-1.77 :32 T3, FREE (TRIDOTHYRONINE) Comments: PATIENT WAS FASTINGPERFORMED BY: [facility] Ywfieb6354 [facility] [id number] BY: [address] [id number] (23403) Triiodothyronine,Free,Serum 3.4 pg/mL (Normal) Range: 2.0-4.4 :32 Ethanol, Blood Comments: PATIENT WAS FASTINGPERFORMED BY: [facility] Qkequv9920 [facility] [id number] BY: ANNA [facility] Jhqyxohdlr3958 [facility] [id number] Ethanol 0.025 % (Normal) Comments: Verified by repeat analysis 04-Apr-20128:30 THYROID IMAGE W/[facility] Radiology Report See Note (Normal) [...] EDTElectronically Signed RB/RB Professional Interpretation Provided By: [facility], , To consult with a radiologist regarding this report, please call our 25Q5ozrquzs line @ Dictated on 04/04/12951 by Jeffrey Fatima DOTranscribed on 04/05/122125 by ITS IMPORTSign by Jeffrey Acosta DO on 04/05/122126 Sign by: Jeffrey Fatima DO 19-Tpg-857951:50 TSH (75817) Comments: PATIENT NOT FASTINGPERFORMED BY: LabCoWeisman Children's Rehabilitation HospitalFznztl3193 [facility] [id number] TSH 0.337 {uIU/mL} (Abnormal) Range: 0.450-4.500 :50 T4, FREE (THYROXINE) (09097) Comments: PATIENT NOT FASTINGPERFORMED BY: [facility] Artzzi6563 [address] [facility] [place] [id number] T4,Free(Direct) 1.14 ng/dL (Normal) Range: 0.82-1.77 :50 T3, FREE (TRIDOTHYRONINE) (89669) Comments: PATIENT NOT FASTINGPERFORMED BY: [facility]Core[facility]6370 [facility] [id number] Triiodothyronine,Free,Serum 3.2 pg/mL (Normal) Range: 2.0-4.4 :50 CALCIFIDIOL (77316) VIT D 25 Comments: PATIENT NOT FASTINGPERFORMED BY: LabCore[facility]6370 [facility] [id number] Vitamin D, 25-Hydroxy 57.3 ng/mL (Normal) Range: 30.0-100.0 Comments: Vitamin D deficiency has been defined by the [place] of[place]icine and an Endocrine Society practice guideline as alevel of serum 25-OH vitamin D less than 20 ng/mL (1,2).The Endocrine Society went on to further define vitamin Dinsufficiency as a level between 21 and 29 ng/mL (2).1. IOM ([place] of [employer]). 2010. Dietary reference intakes for calcium and D. Cantu [place]: The National Academies Press.2. Clifton MF, Robbi MADRID, Ladarius GONZALES, et al. Evaluation, treatment, and prevention of vitamin D deficiency: an Endocrine Society clinical practice guideline. JCEM. 2010; 96(7):1911-30. :50 HEPATIC FUNCTION PANEL Comments: PATIENT NOT FASTINGPERFORMED BY: [facility] Ijlgin5583 [facility] [id number] Information: [id number] (17145) ALT (SGPT) 76 [iU]/L (Abnormal) Range: 0-55 Alkaline Phosphatase, S 77 [iU]/L (Normal) Range: 25-160 AST (SGOT) 88 [iU]/L (Abnormal) Range: 0-40 Bilirubin, Direct 0.52 mg/dL Range: 0.00-0.40 (Abnormal) Bilirubin, Total 1.3 mg/dL (Abnormal) Range: 0.0-1.2 Albumin, Serum 4.7 g/dL (Normal) Range: 3.6-4.8 Protein, Total, Serum 7.2 g/dL (Normal) Range: 6.0-8.5 11-Feb-2012 Vitamin D, 25-Hydroxy 5.2 ng/mL (Abnormal) Comments: PERFORMED BY: [facility] [id number] 12:13 Range: 30.0-100.0 Comments: Vitamin D deficiency has been defined by the [place] of[place] and an Endocrine Society practice guideline as alevel of serum 25-OH vitamin D less than 20 ng/mL (1,2).The Endocrine Society went on to further define vitamin Dinsufficiency as a level between 21 and 29 ng/mL (2).1. IOM ([place] [employer]). 2010. Dietary reference intakes for [...] Mitochondrial (M2) <20.0 {Units} Comments: PERFORMED BY: castaclip6370 [facility]Nov[facility] [id number] 12:13 Antibody (Normal) Range: 0.0-20.0 Comments: Negative 0.0 - 20.0 Equivocal 20.1 - 24.9 Positive >24.9 . Mitochondrial (M2) Antibodies are found in 90-96% of patients with primary biliary cirrhosis. 11-Feb-2012 Actin (Smooth Muscle) 8 {Units} (Normal) Comments: PERFORMED BY: [facility] [id number] 12:13 Antibody Range: 0-19 Comments: Negative 0 - 19 Weak positive 20 - 30 Moderate to strong positive >30 . Actin Antibodies are found in 52-85% of patients with autoimmune hepatitis or chronic active hepatitis and in 22% of patients with primary biliary cirrhosis. 11-Feb-2012 Ferritin, Serum 364 ng/mL (Normal) Comments: PERFORMED BY: TheBankCloudWeisman Children's Rehabilitation HospitalDdxcyx7135 [facility] [id number] 12:13 Range: 30-400 85-Fvk-133463:13 Antinuclear Antibodies Direct Comments: PERFORMED BY: [employer] Iqtzeg2144 [facility] [id number] ALISON Direct Negative (Normal) 44-Xkt-571859:13 Hepatic Function Panel (7) Comments: PERFORMED BY: [employer] Fzgfay3509 [facility] [id number] ALT (SGPT) 62 [iU]/L (Abnormal) Range: 0-55 Alkaline Phosphatase, S 82 [iU]/L (Normal) Range: 25-160 AST (SGOT) 106 [iU]/L (Abnormal) Range: 0-40 Bilirubin, Direct 0.44 mg/dL (Abnormal) Range: 0.00-0.40 Bilirubin, Total 0.9 mg/dL (Normal) Range: 0.0-1.2 Albumin, Serum 4.5 g/dL (Normal) Range: 3.6-4.8 Protein, Total, Serum 7.3 g/dL (Normal) Range: 6.0-8.5 33-Ler-348203:13 Thyroxine (T4) Free, Direct, Comments: PERFORMED BY: TheBankCloudWeisman Children's Rehabilitation HospitalXjjyrv8438 [facility] [id number] S T4,Free(Direct) 1.10 ng/dL Range: 0.82-1.77 (Normal) 11-Feb-2012 Triiodothyronine,Free,Seru 3.4 pg/mL (Normal) Comments: PERFORMED BY: [facility]Core[facility]6370 [facility] [id number] 12:13 m Range: 2.0-4.4 11-Feb-2012 TSH 0.371 {uIU/mL} Comments: PERFORMED BY: [facility]6370 [facility] [id number] 12:13 (Abnormal) Range: 0.450-4.500 25-Abm-568815:04 Thyroxine (T4) Free, Comments: PATIENT WAS FASTINGPERFORMED BY: [facility]6370 [facility] [id number] Information: [id number] Direct, S T4,Free(Direct) 1.25 ng/dL Range: 0.82-1.77 (Normal) 07-Dec-2011 Triiodothyronine,Free,Seru 3.1 pg/mL (Normal) Comments: PATIENT WAS FASTINGPERFORMED BY: [facility]6370 [facility] [id number] 13:04 m Range: 2.0-4.4 07-Dec-2011 Written Authorization WAR (Normal) Comments: PATIENT WAS FASTINGPERFORMED BY: [facility]6370 [facility] [id number] 13:04 Comments: Written Authorization Received.Authorization received from JEWELL HADLEY [id number] by Margaret Zuniga 68-Dut-694153:04 TSH (85416) Comments: PATIENT WAS FASTINGPERFORMED BY: [facility]6370 [facility] [id number] TSH 0.290 {uIU/mL} (Abnormal) Range: 0.450-4.500 70-Ecc-781251:04 CALCIFIDIOL (47149) VIT D 25 Comments: PATIENT WAS FASTINGPERFORMED BY: [facility]6370 [facility] [id number] Vitamin D, 25-Hydroxy 7.2 ng/mL (Abnormal) Range: 30.0-100.0 Comments: Vitamin D deficiency has been defined by the [place] of[place]icine and an Endocrine Society practice guideline as alevel of serum 25-OH vitamin D less than 20 ng/mL (1,2).The Endocrine Society went on to further define vitamin Dinsufficiency as a level between 21 and 29 ng/mL (2).1. IOM ([place] [employer]). 2011. Dietary reference intakes for calcium and D. Cantu [place]: The National Academies Press.2. Clifton MF, Robbi MADRID, Ladarius GONZALES, et al. Evaluation, treatment, and prevention of vitamin D deficiency: an Endocrine Society clinical practice guideline. JCEM. 2010; 96(7):1911-30. 55-Abk-932805:04 Vitamin B-12 (cyanocobalamin) Comments: PATIENT WAS FASTINGPERFORMED BY: [facility] Zxidqm9614 [facility] [id number] (41711) Vitamin B12 920 pg/mL (Normal) Range: 211-946 44-Zzn-999351:04 METABOLIC PANEL, COMPREHENSIVE Comments: PATIENT WAS FASTINGPERFORMED BY: [facility] Ymmlyp4142 [facility] [id number] (07506) ALT (SGPT) 101 [iU]/L (Abnormal) Range: 0-55 [...] Glucose, Serum 85 mg/dL (Normal) Range: 65-99 36-Mfe-941061:04 LIPID PANEL (58056) Comments: PATIENT WAS FASTINGPERFORMED BY: Lyfepoints70 [facility] [id number] LDL Cholesterol Calc 79 mg/dL (Normal) Range: 0-99 LDL/HDL Ratio 0.5 {ratio_units} (Normal) Range: 0.0-3.6 VLDL Cholesterol Micah 11 mg/dL (Normal) Range: 5-40 HDL Cholesterol 156 mg/dL (Normal) Comments: Results confirmed ondilution.According to ATP-III Guidelines, HDL-C >59 mg/dL is considered anegative risk factor for CHD. Triglycerides 57 mg/dL (Normal) Range: 0-149 Cholesterol, Total 246 mg/dL (Abnormal) Range: 100-199 89-Qlh-703425:04 CBC WITH MANUAL DIFF Comments: PATIENT WAS FASTINGPERFORMED BY: [employer] Rsykir9008 [facility] [id number] Information: [id number] (02175) Immature Grans (Abs) 0.0 {x10E3/uL} (Normal) Range: [...] 4.10-5.60 WBC 5.7 {x10E3/uL} (Normal) Range: 4.0-10.5 86-Qyp-39552:56 BRAIN/HEAD W/WO CONTRAST Radiology Report See Note [...] scan of the brain. Dictated on 05/27/11 5118 by Yasmeen ALBARADO,GabrieleTranscribed on 05/27/11 1332 by ITS IMPORTSign by Maxi Arana MD on 1333 Sign by: Maxi Arana MD 03-Yww-29415:00 LIVER Radiology Report See Note (Normal) Comments: [...] size of the right kidney. The right mjgwhscixktnsk30.4 cm. Normal renal cortex. The right cortex measures 1.7 cm. Thereisno de monstrated renal mass or cyst. There are no demonstrated renalcalculi. There is no hydronephrosis. There is no ascites. IMPRESSION:Normal abdominal ultrasound examination. Dictated on 04/21/11 082 9 by Va Arana MDranscribed on 04/21/11 1107 by ITS IMPORTSign by Maxi Arana MD on 04/21/11 1108 Sign by: Maxi Arana MD 95-Jbp-85850:16 HEPATIC FUNCTION PANEL Comments: PATIENT NOT FASTINGPERFORMED BY: LabCoWeisman Children's Rehabilitation HospitalJsijfu7225 [facility] [id number] Information: [id number] (43860) Alkaline Phosphatase, S 69 [iU]/L (Normal) Range: 25-160 ALT (SGPT) 142 [iU]/L (Abnormal) Range: 0-55 AST (SGOT) 171 [iU]/L (Abnormal) Range: 0-40 Bilirubin, Direct 0.43 mg/dL (Abnormal) Range: 0.00-0.40 Bilirubin, Total 0.8 mg/dL (Normal) Range: 0.0-1.2 Albumin, Serum 4.7 g/dL (Normal) Range: 3.6-4.8 Protein, Total, Serum 7.2 g/dL (Normal) Range: 6.0-8.5 :16 HEPATITIS PANEL (82727) Comments: PATIENT NOT FASTINGPERFORMED BY: TheBankCloud[address] [id number] Hep C Virus Ab <0.1 {s/co_ratio} (Normal) [...] (Normal) Hep A Ab, IgM Negative (Normal) 59-Xyv-200625:05 CBC With Differential/Platelet Comments: PATIENT WAS FASTINGPERFORMED BY: TheBankCloud[address] [id number] BY: [address] [id number] Immature Grans (Abs) 0.0 {x10E3/uL} (Normal) Range: [...] 4.10-5.60 WBC 7.7 {x10E3/uL} (Normal) Range: 4.0-10.5 83-Fhx-824262:05 Comp. Metabolic Panel Comments: PATIENT WAS FASTINGPERFORMED BY: CB [facility] [address] [id number] BY: BN [facility] [address] [id number] (14) Alkaline Phosphatase, S 74 [iU]/L (Normal) [...] % (Normal) Comments: PATIENT WAS FASTINGPERFORMED BY: OneStopWeb [facility] [id number] BY: TheBankCloud[address] [id number] 3:05 Range: 4.8-5.6 Comments: Increased risk for diabetes: 5.7 - 6.4 Diabetes: >6.4 Glycemic control for adults with diabetes: <7.0 80-Hwv-932936:05 Lipid Panel With LDL/HDL Comments: PATIENT WAS FASTINGPERFORMED BY: Lyfepoints70 [facility] [id number] BY: TheBankCloud[address] [id number] Ratio LDL Cholesterol Calc 89 mg/dL (Normal) Range: 0-99 LDL/HDL Ratio 0.7 {ratio_units} (Normal) Range: 0.0-3.6 VLDL Cholesterol Micah 18 mg/dL (Normal) Range: 5-40 Cholesterol, Total 241 mg/dL (Abnormal) Range: 100-199 HDL Cholesterol 134 mg/dL (Normal) Comments: Results confirmed ondilution.According to ATP-III Guidelines, HDL-C >59 mg/dL is considered anegative risk factor for CHD. Triglycerides 92 mg/dL (Normal) Range: 0-149 :05 Panel [id number] Comments: PATIENT WAS FASTINGPERFORMED BY: IActionable Offerti [facility] [id number] BY: [address] [id number] HIV 1/O/2 Abs, Non Reactive Qual (Normal) HIV 1/O/2 <1.00 (Normal) Comments: Index Value: Specimen reactivity relative to the negative cutoff. Abs-Index Value : TSH 0.699 {uIU/mL} Comments: PATIENT WAS FASTINGPERFORMED BY: One[employer]Web [facility] [id number] BY: [address] [id number] 05 (Normal) Range: 0.450-4.500 :05 Vitamin B1 (Thiamine), Comments: PATIENT WAS FASTINGPERFORMED BY: IActionable Etymhb5670 [facility] [id number] BY: [address] [id number] Blood Vit. B1, Whole Blood 150.6 nmol/L Range: 66.5-200.0 (Normal) Vitamin B12 >1999 pg/mL Comments: PATIENT WAS FASTINGPERFORMED BY: IActionable Kstbzn2007 [facility] [id number] BY: [address] [id number] :05 (Abnormal) Range: 211-946 44-Xfo-72987:10 CBCD,SMEAR DIFF BAND 2 % (Normal) Range: [...] 11.6-14.6 WBC 5.0 K/mm3 (Normal) Range: 4.4-11.0 06-Gne-38626:10 COMP METABOLIC ALK P 72 U/L (Normal) [...] CHOL 200 mg/dL (Normal) Comments: <200 mg/dL Yarmnuqub332-264 mg/dL Borderline>240 mg/dL High Risk HDL 87 [...] Range: 0.358-3.74 0 (Normal) :1 VIT D,25 64027 20.5 ng/mL (Abnormal) Range: 32.0-100.0 0 Comments: Recent studies consider the lower limit of 32.0 ng/mL to nati threshold for optimal health.Edwin ESPINOZA. J Nutr. 2004;135(2):317-22.Performed at: [place] [address] Director: Adrienne Gil MD, Phone: [phone] :[phone] VITAMIN B12 1239 pg/mL (Normal) Range: 254-1320 0 Comments: There is a low frequency possibility that high titers ofintrinsic blocking antibodies may not be completelyinactivated during the reaction pretreatment stepof this testing method. If test results are in conflictwith the clinical diagnosis, patient should be testedfor the presence of intrinsic factor blocking antibodies. 80-Wtx-772988:24 Urinalysis, Office (28760) UA - LEUKOCYTE Negative (Normal) ESTERASE UA [...] {units} (Normal) Comments: PATIENT WAS FASTINGPERFORMED BY: [address] [id number] Range: 0-19 Comments: Negative <20 Weak positive 20 - 39 Moderate positive 40 - 59 Strong positive >59 : Comment: SPRCS (Normal) Comments: PATIENT WAS FASTINGPERFORMED BY: [address] [id number] 29 Comments: Effective August 25, 2009 order code 398100 CCP IgGAntibodies has been replaced due to an updated reagentversion 3.1. For this reason [facility] has provided youwith a new order code 758439 CCP Antibodies IgG/IgA. :29 PSA (PROSTATE SPECIFIC Comments: PATIENT WAS FASTINGPERFORMED BY: [address] [id number] ANTIGEN) (V76.44) Prostate Specific Ag, 1.0 ng/mL (Normal) Range: 0.0-4.0 Serum Comments: Mónica ECLIA methodology. .According to the [place] [employer], Serum PSA shoulddecrease and remain at undetectable levels after radicalprostatectomy. The AUA defines biochemical recurrence as an initialPSA value 0.2 ng/mL or greater followed by a subsequent confirmatoryPSA value 0.2 ng/mL or greater.Values obtained with d ifferent assay methods or kits cannot be usedinterchangeably. Results cannot be interpreted as absolute evidenceof the presence or absence of malignant disease. :29 LIPID PANEL (07686) Comments: PATIENT WAS FASTINGPERFORMED BY: [address] [id number] Cholesterol, Total 240 mg/dL (Abnormal) Range: 100-199 HDL Cholesterol 85 mg/dL (Normal) Comments: According to ATP-III Guidelines, HDL-C >59 mg/dL is considered anegative risk factor for CHD. LDL Cholesterol Calc 142 mg/dL (Abnormal) Range: 0-99 LDL/HDL Ratio 1.7 {ratio_units} (Normal) Range: 0.0-3.6 Triglycerides 63 mg/dL (Normal) Range: 0-149 VLDL Cholesterol Micah 13 mg/dL (Normal) Range: 5-40 :29 C-REACTIVE PROTEIN (25327) Comments: PATIENT WAS FASTINGPERFORMED BY: [facility] [id number] C-Reactive Protein, Quant 0.8 mg/L (Normal) Range: 0.0-4.9 :29 SED RATE ERYTHROCYTE (91228) Comments: PATIENT WAS FASTINGPERFORMED BY: [facility] [id number] Sedimentation Rate-Westergren 2 mm/h (Normal) Range: 0-20 :29 ALISON (ANTINUCLEAR ANTIBODY) Comments: PATIENT WAS FASTINGPERFORMED BY: [facility] [id number] (79222) ALISON Direct Negative (Normal) :29 CBC WITH MANUAL DIFF (21728) Comments: PATIENT WAS FASTINGClinical Information: [id number] PERFORMED BY: [facility] [id number] Baso (Absolute) 0.1 {x10E3/uL} (Normal) Range: 0.0-0.2 [...] PANEL, COMPREHENSIVE Comments: PATIENT WAS FASTINGPERFORMED BY: [facility] [id number] (90852) A/G Ratio 1.5 (Normal) Range: 1.1-2.5 Albumin, [...] mmol/L (Normal) Range: 135-145 :29 RHEUMATOID FACTOR-QUANT (61592) Comments: PATIENT WAS FASTINGPERFORMED BY: [facility] [address] [id number] RA Latex Turbid. 8.4 {IU/mL} (Normal) Range: 0.0-13.9 :29 TSH (34665) Comments: PATIENT WAS FASTINGPERFORMED BY: [facility] [address] [id number] TSH 0.661 {uIU/mL} (Normal) Range: 0.450-4.500 66-Wuz-722678:30 RIBS,UNI,MIN 3V,W/PA CHEST(MT) Radiology Report See Note (Normal) Comments: Exam Number: [id number] FRONTAL CHEST AND LEFT RIBS CLINICAL HISTORY [...] (PROSTATE SPECIFIC Comments: PATIENT NOT FASTINGPERFORMED BY: [facility] [id number] ANTIGEN) (V76.44) Prostate Specific Ag, Serum 1.6 ng/mL (Normal) Range: 0.0-4.0 Comments: Open PlacesIA methodology. .According to the [place] [employer], PSA should beundetectable after radical prostatectomy. A PSA of less than0.5 ng/mL (or undetectable) is not likely to be associated withdisease recurrence within five years of treatment.Values obtained with different assay methods or kits cannot be usedinterchang eably. Results cannot be interpreted as absolute evidenceof the presence or absence of malignant disease. :47 TSH (12284) Comments: PATIENT NOT FASTINGPERFORMED BY: [facility] [address] [id number] TSH 0.463 {uIU/mL} (Normal) Range: 0.450-4.500 :47 CBC (Auto) (58424) Comments: PATIENT NOT FASTINGPERFORMED BY: [facility] [id number] Hematocrit 47.6 % (Normal) Range: 36.0-50.0 Hemoglobin [...] PATIENT NOT FASTINGClinical Information: ADD DRAW FEE 105802 ADD J 83689 PERFORMED BY: [facility] [address] [id number] (68987) A/G Ratio 1.4 (Normal) Range: 1.1-2.5 Albumin, [...] mmol/L (Normal) Range: 135-145 :47 Lipid Panel (60832) Comments: PATIENT NOT FASTINGPERFORMED BY: [facility] [id number] Cholesterol, Total 199 mg/dL (Normal) Range: 100-199 [...] (Normal) Range: 5-40 :47 Methylmalonic acid, serum 24462 Comments: PATIENT NOT FASTINGPERFORMED BY: [facility] [address] [id number] Methylmalonic Acid, Serum 225 nmol/L (Normal) Range: [...] B-12 (cyanocobalamin) Comments: PATIENT NOT FASTINGPERFORMED BY: [facility] [address] [id number] (23262) Vitamin B12 256 pg/mL (Normal) Range: 211-911 45-Eeb-143302:30 Metabolic Panel, Basic Comments: PATIENT NOT FASTINGClinical Information: ADD DRAW FEE [id number] ADD J 35726 PERFORMED BY: [facility]CloudPres[facility] Fe Medical CenterErhrfb0453 [facility] [id number] (01622) BUN 13 mg/dL (Normal) Range: 5-26 BUN/Creatinine [...] on 'Glom Filt Rate, Est' and 'If -Cambodian' will be changing to >59 mL/min/1.73. Glucose, Serum 86 mg/dL (Normal) Range: 65-99 If -Cambodian >59 mL/min/1.73 Range: 60-137 (Normal) Comments: Note: [...] 3.5-5.1 NA 136 mmol/L (Normal) Range: 136-145 70-Jda-76335:01 CBCD BASO% 0.5 % (Normal) Range: 0-1 [...] Report See Note (Normal) Comments: Exam Number: [id number] PA AND LATERAL CHEST HISTORY Being done [...] (PROSTATE SPECIFIC Comments: PATIENT WAS FASTINGPERFORMED BY: IActionable Lcvxyr1471 [facility] [id number] ANTIGEN) Prostate-Specific Ag, Serum 0.5 ng/mL (Normal) Range: 0.0-4.0 Comments: Cathie (formerly [employer]) [facility] methodology :28 Vitamin B-12 (cyanocobalamin) Comments: PATIENT WAS FASTINGPERFORMED BY: [facility]Actionable Senchd4057 [facility] [id number] (20418) Vitamin B12 283 pg/mL (Normal) Range: 211-911 75-Oxy-08990:28 C-REACTIVE PROTEIN (55541) Comments: PATIENT WAS FASTINGPERFORMED BY: [employer]Actionable Nkxdwy7821 [facility] [id number] C-Reactive Protein, Quant 0.6 mg/L (Normal) Range: 0.0-4.9 :28 SED RATE ERYTHROCYTE (49795) Comments: PATIENT WAS FASTINGPERFORMED BY: [place] [id number] [facility] [id number] Sedimentation Rate-Westergren 2 mm/h (Normal) Range: 0-20 :28 RHEUMATOID FACTOR-QUANT (37815) Comments: PATIENT WAS FASTINGPERFORMED BY: [address] [id number] RA Latex Turbid. 5.2 {IU/mL} (Normal) Range: 0.0-13.9 :28 TSH (42756) Comments: PATIENT WAS FASTINGPERFORMED BY: [address] [id number] TSH 0.436 {uIU/mL} (Normal) Range: 0.350-5.500 :28 ALISON (ANTINUCLEAR ANTIBODY) Comments: PATIENT WAS FASTINGPERFORMED BY: [address] [id number] (26868) Antinuclear Antibodies Direct 23 AU/mL (Normal) Range: 0-99 Comments: Negative <100 Equivocal 100 - 120 Positive >120 : CBC WITH MANUAL DIFF (76214) Comments: PATIENT WAS FASTINGClinical Information: ADD DRAW FEE [id number] ADD J 15188 PERFORMED BY: [address] [id number] Baso (Absolute) 0.0 {x10E3/uL} (Normal) Range: 0.0-0.2 [...] 11.7-15.0 WBC 5.8 {x10E3/uL} (Normal) Range: 4.0-10.5 47-Sig-88097:28 METABOLIC PANEL, COMPREHENSIVE Comments: PATIENT WAS FASTINGPERFORMED BY: LabCoWeisman Children's Rehabilitation HospitalXtqrau9883 [facility] [id number] (51986) A/G Ratio 1.6 (Normal) Range: 1.1-2.5 Albumin, [...] Report See Note (Normal) Comments: Exam Number: [id number] 2 VIEWS OF CHEST PA and lateral views of the chest are compared to the [facility]. There is mild cardiomegaly. There is tortuosityof the aorta. There is n o acute infiltrate, area of consolidation,pleural effusion or vascular congestion identified. Bony structuresare grossly intact. IMPRESSIONNo acute pulmonary abnormality is identified. Reported By: SANJIV MCCOLLUM M.D. : VIT B12 1503 170 pg/mL (Abnormal) Range: 211-911 51 Comments: Performed At: [address] [id number] :19 CBC HCT 46.1 % (Normal) Range: [...] was performed using the TPSA method for the[employer] chemistry system.Values obtained with different assay methods [...] pg/mL (Abnormal) Range: 211-911 Comments: Performed At: [address] [id number] Plan of Care Name Dates Details Instructions [...] with [facility] Indication: Smoker Smoker : Follow up in [...] Planned Observations CBC, Platelets & Auto Diff (15710)Indication: Testosterone deficiency On: : Request Comments: to be done March 2017 HEPATIC FUNCTION PANEL (51713)Indication: Testosterone deficiency On: : Request Comments: to be done March 2017 Metabolic Panel, Comprehensive (61706)Indication: Testosterone deficiency On: : Request Comments: to be done in March 2017 MICROALBUMIN: CREATININE RATIO (13392) AND (75811)Indication: Hypertension On: 87-Jkq-087524:04 Request URINALYSIS (65368)Indication: Hypertension On: 15-Cfr-972636:02 Request Urinalysis, Office (92116)Indication: Preop examination On: 96-Nfg-941098:45 Request HgA1C , Office (47661)Indication: Impaired fasting glucose On: 53-Ycy-381709:59 Request MICROALBUMIN: CREATININE RATIO (15343) AND (44478)Indication: Hypertension On: 01-Dec-20158:35 Request Urinalysis, Office (06220)Indication: Abdominal wall pain On: 72-Fnz-645140:30 Request Vitamin B-12 (cyanocobalamin) (82394)Indication: B12 deficiency On: :37 Request CALCIFIDIOL (54125) VIT D 25Indication: Vitamin D deficiency, unspecified On: :37 Request METABOLIC PANEL, COMPREHENSIVE (78592)Indication: Hypertension On: :37 Request LIPID PANEL (72810)Indication: Hypertension On: :37 Request CBC with auto diff (68087)Indication: Hypertension On: :37 Request CALCIFEDIOL (13718)Indication: Vitamin D deficiency, unspecified On: 06-Sca-102212:58 Request HgA1C , Office (33468)Indication: Impaired fasting glucose On: :21 Request Blood Glucose , Office (14212)Indication: Impaired fasting glucose On: :21 Request METABOLIC PANEL, COMPREHENSIVE (34454)Indication: Hypertension On: 83-Hsg-258933:15 Request LIPID PANEL (30797)Indication: Hypertension On: 36-Sfq-268369:15 Request CALCIFEDIOL (01588)Indication: Vitamin D deficiency, unspecified On: 2-Zlm-343556:46 Request ALCOHOL, ETHYL (BLOOD) (75742)Indication: Alcohol abuse, continuous drinking behavior On: 70-Nfs-911787:45 Request ALCOHOL, ETHYL (BLOOD) (84837)Indication: Other and unspecified alcohol dependence, unspecified drinking behavior On: 92-Mcd-416919:19 Request CALCIUM SERUM (17798)Indication: Dysuria On: 02-Pfy-91756:42 Request Potassium Serum (49683)Indication: Hypopotassemia On: 43-Bnq-610604:36 Request Comments: recheck in 2 weeks Magnesium (57875)Indication: Hypopotassemia On: 91-Jor-404505:36 Request Comments: re check in 2 weeks MAGNESIUM (31836)Indication: Other symptoms and signs involving general sensations and perceptions On: 8-Lao-902752:19 Request Potassium Serum (64105)Indication: Hypopotassemia On: 2-Pxg-689078:29 Request Magnesium (36948)Indication: Hypopotassemia On: 2-Eiw-978233:29 Request Phosphorus (62263)Indication: Hypopotassemia On: 0-Rje-089111:29 Request Metabolic Panel, Basic (27969)Indication: Hypopotassemia On: 7-War-885453:19 Request TSH (72917)Indication: Abnormal TSH On: 64-Xao-154927:45 Request ASM (ANTI SMOOTH MUSCLE ANTIBODY) (09298)Indication: Elevated LFTs On: 80-Vux-713484:05 Request CALCIFIDIOL (34842) VIT D 25Indication: Vitamin D deficiency, unspecified On: 53-Rqo-101947:01 Request Metabolic Panel, Comprehensive (99756)Indication: Hypertension On: 97-Mtr-754832:47 Request Drug Screen (Urine 6-Panel) (70906)Indication: Other and unspecified alcohol dependence, unspecified drinking behavior On: 98-Iqd-233904:25 Request THIAMINE (B-1) (92097)Indication: Other and unspecified alcohol dependence, unspecified drinking behavior On: 57-Vsv-197263:24 Request CBC (Auto) (38558)Indication: Fatigue On: :22 Request Lipid Panel (10434)Indication: Hypertension On: :22 Request Metabolic Panel, Comprehensive (14455)Indication: Fatigue On: :22 Request TSH (81926)Indication: Anxiety On: :22 Request Vitamin B-12 (cyanocobalamin) (90696)Indication: B12 deficiency On: : Request Hemoglobin Glyclated (HGB A1C) (44966)Indication: Candidiasis, mouth On: : Request HIV-1 ANTIBODY (08393)Indication: Candidiasis, mouth On: : Request Vitamin B-12 (cyanocobalamin) (23244)Indication: B12 deficiency On: :26 Request Metabolic Panel, Comprehensive (44574)Indication: Impaired fasting glucose On: :26 Request CALCIFEDIOL (46374)Indication: Vitamin D deficiency, unspecified On: :25 Request METABOLIC PANEL, COMPREHENSIVE (00679)Indication: Hypertension On: 48-Uxa-869735:20 Request LIPID PANEL (32514)Indication: Hypertension On: 70-Cbf-539945:20 Request CBC WITH MANUAL DIFF (18524)Indication: Hypertension On: 08-Nbe-727700:20 Request Vitamin B-12 (cyanocobalamin) (45979)Indication: B12 deficiency On: 07-Gls-745475:20 Request CALCIFIDIOL (20873) VIT D 25Indication: Fatigue On: 35-Utz-305063:19 Request TSH (50013)Indication: Fatigue On: 89-Pvr-845068:19 Request Metabolic Panel, Comprehensive (22919)Indication: Impaired fasting glucose On: 53-Uaa-470692:20 Request Comments: in three months (approximately) Metabolic Panel, Basic (85519)Indication: Hypertension On: :19 Request Comments: 2 weeks CBC (Auto) (24214)Indication: Alcohol abuse, continuous drinking behavior On: :17 Request Lipid Panel (50323)Indication: Impaired fasting glucose On: :16 Request Comments: in three months (approximately) Methylmalonic acid, serum 48205Kwjohvwtff: B12 deficiency On: :16 Request Comments: in three months (approximately) Vitamin B-12 (cyanocobalamin) (73982)Indication: B12 deficiency On: 09-Tvz-965734:16 Request Comments: in three months (approximately) CCP ANTIBODY (21330)Indication: Pain in unspecified joint On: :56 Request HgA1C , Office (04590)Indication: Impaired fasting glucose On: 82-Pat-421743:40 Request CARINE CULTURE-STOOL (00851)Indication: Diarrhea On: :52 Request C-DIFFICILE, STOOL (12398)Indication: Diarrhea On: :52 Request LEUKOCYTE COUNT, FECAL (09787)Indication: Diarrhea On: :52 Request OCCULT BLOOD FECES SCREEN (09741)Indication: Diarrhea On: :52 Request OVA & PARASITE DIR SMEAR (40337)Indication: Diarrhea On: :52 Request Metabolic Panel, Basic (32383)Indication: Hypertension On: :05 Request Metabolic Panel, Basic (68410)Indication: Hypertension On: :41 Request Vitamin B-12 (cyanocobalamin) (82265)Indication: B12 deficiency On: :41 Request Comments: 8 weeks CBC (Auto) (85194)Indication: Diarrhea On: :07 Request Metabolic Panel, Basic (87325)Indication: Diarrhea On: 3-Bsg-185495:07 Request VITAMIN B-12 (CYANOCOBALAMIN) (76497)Indication: B12 deficiency On: 5-Uja-538854:04 Request Comments: methylmalonic acid CARINE CULTURE-STOOL (58002)Indication: Diarrhea On: 0-Mzh-722830:58 Request LEUKOCYTE COUNT, FECAL (93578)Indication: Diarrhea On: 5-Znl-400073:58 Request C.Difficile, Stool (47754)Indication: Diarrhea On: 9-Uxh-439481:58 Request OVA & PARASITE DIR SMEAR (29106)Indication: Diarrhea On: 7-Kcg-506845:58 Request Vitamin B-12 (cyanocobalamin) (24521)Indication: B12 deficiency On: 9-Giq-879826:53 Request Planned Procedures Flu Vaccine (Quadrivalent) On: 08-Aug-2018 Intent 55185Qr: Lauryn Hanson Comments: Lot #[id number]-L dltd, IMDose prefilled syringegiven by:LAMAR Sullivan reviewed and ABN signed ELECTROCARDIOGRAM, COMPLETE On: 17-May-2018 Intent (ECG) (52429)By: Devaughn PASTOR, Comments: nsr no acute chg Jazmine ATTENDED SLEEP STUDY (23766)By: On: 08-May-2018 Intent Jailene Mayfield CNP, CNP, Mary E SPIROMETRY (44693)By: Tran On: 06-Jan-2018 Intent Jailene LOTT CNP, Mary E Comments: normal Aerosol Treatment (41589)By: On: 19-Dec-2017 Intent Sue Rooney Comments: Lungs clear after aerosol treatment. CHEST XRAY, PA & LATERAL On: 19-Dec-2017 Intent (33518)By: Sue Rooney Radiology - Lumbar SpineBy: On: 19-Dec-2017 Intent Sue Rooney Flu Vaccine (Quadrivalent) On: 20-Sep-2017 Intent 56079Sd: Jailene Mayfield CNP Comments: QUAD flu 0.5ml injectionlot number: [id number]: 02/2018R Deltoid IMpt tolerated wellAD RESEARCH PSYCHOLOGIST Jailene Mayfield CNP Nuclear Stress Test/Stress On: 25-May-2017 Intent SPECT/AdenosineBy: Jailene Mayfield CNP, CNP, Mary E Echo CompleteBy: Tran LOTT, On: 25-May-2017 Intent Jailene Puri CNP Holter Monitor 24 hrsBy: Tran On: 16-May-2017 Intent Jailene LOTT CNP, Mary E ELECTROCARDIOGRAM, COMPLETE On: 16-May-2017 Intent (ECG) (37605)By: Tran LOTT, Comments: sinus bradicardia and widening QT Jailene Vega Tran LOTT Jailene Vega Ultrasound - ThyroidBy: Nicholasa On: 29-Mar-2017 Intent KAYLIE Jailene Vega Tran LOTT Jailene Vega Flu Vaccine (Quadrivalent) On: 12-Jan-2017 Intent 73946Fs: Tran LOTT [place] Comments: Lot:[id number]:05/27/17Dose:0.5mLRoute:IMSite:L DltdGiven By:JOHANNE signed Tran LOTT [place] PNEUM VAC ADLT/IMUMNOSPR, On: 12-Jan-2017 Intent SBC/INTRM (10162)By: Tran LOTT, Comments: Lot:[id number]:04/16/18Dose:0.5mgRoute:imSite:r armGiven By:JOHANNE signed AureliaGary Mayfield CNP [place] Radiology - Chest- PA and On: 02-Dec-2016 Intent LatBy: Jazmine Cantor DO Spirometry (85148)By: Devaughn On: 02-Dec-2016 Jazmine Lowry DO Comments: obstructive pattern Aerosol Treatment (64823)By: On: 02-Dec-2016 Intent Jazmine Cantor DO Comments: more a/e but still inspir and exp noise - wheeze and rhonchi Solu- Medrol Injection, 125mg On: 02-Dec-2016 Intent (J2930)By: Jazmine Cantor DO Comments: solumedrollot:[id number]:05/16site:rt glutroute:IMdose:125mgD.ANN MARIE Gonzáles CHEST XRAY, PA & LATERAL On: 28-Sep-2016 Intent (95053)By: Jailene Mayfield CNP, CNP [place] Radiology - ChestBy: Tran LOTT, On: 21-Sep-2016 Intent AureliaGary Mayfield CNP [place] ELECTROCARDIOGRAM, COMPLETE On: 21-Sep-2016 Intent (ECG) (98951)By: Esequiel LANGSTON, Comments: sinus rthym Safia Ear Irrigation (06939)By: On: 19-Jul-2016 Intent Tran LOTT AureliaGary Mayfield CNP [place] Wax CurettesBy: Waqar ALBARADO, On: 06-Feb-2016 Intent Jewell Kendall Ear Irrigation (15686)By: On: 06-Feb-2016 Intent Jewell Hadley MD EKG (22292)By: Waqar ALBARADO, On: 17-Jun-2015 Intent Jewell Kendall Comments: see scanned document of test done to see results reviewed today with patient VITAMIN B12 INJECTION On: 27-Mar-2015 Intent (62875)By: Bethany Rehman Comments: Vitaman b12 Lot:[id number]:02/10Route:IMSite:L DeltoidDose: 1 mLgiven by:ANS INJECTION, VITAMIN B-12 On: 27-Mar-2015 Intent CYANOCOBALAMIN, UP TO 1000 MCG (Special Coverage Instructions Apply. See CIM: 45-4 and MCM: 2048) (J3420)By: Jewell Hadley MD Flu Vaccine (Quadrivalent) On: 09-Oct-2014 Intent 87129So: Jewell Hadley MD ADMINISTRATION OF INFLUENZA On: 09-Oct-2014 Intent VIRUS VACCINE (G0008)By: Jewell Hadley MD PHYSICAL THERAPY EVALUATION On: 17-May-2014 Intent (43369)By: Jailene Mayfield CNP, CNP, Mary E Radiology - Cervical SpineBy: On: 17-May-2014 Intent Jailene Mayfield CNP, CNP, Mary E Eprescribed prescriptions On: 26-Mar-2014 Intent (G8553)By: Jewell Hadley MD IMMUNIZATION ADMIN (28174)By: On: 12-Feb-2013 Intent Yoli Martinez LPN Comments: brought own B-12 Lot #[id number], exp. 11/10. given IM in L deltoid without difficylty or c/o voiced. jq INFUSION, NORMAL SALINE On: 12-Feb-2013 Intent SOLUTION , 1000 CC (Special Comments: Normal Saline, Lot #[id number], exp. June 10 infusing without infiltrate in L AC. JQ Coverage Instructions Apply. See MCM: 2048) (J7030)By: Jailene Mayfield CNP, CNP, Mary E HYDRATION IV INFUSION, INIT On: 12-Feb-2013 Intent (73665)By: Jailene Mayfield CNP Comments: IV initiated in: L ACwith 22 gaugenumber of attempts: X 1 Tolerated well: without difficulty or c/o voiced. Jailene Mayfield CNP Ultrasound - RenalBy: Ciesa On: 12-Feb-2013 Intent Jialene LOTT CNP, Mary E Nuclear Medicine - [...] On: 23-Mar-2010 Intent Jewell Kendall Ear Irrigation (38016)By: On: 23-Mar-2010 Intent Jewell Hadley MD EKG (06299)By: Waqar ALBARADO, On: 23-Mar-2010 Intent Jewell Kendall PHYSICAL THERAPY EVALUATION On: 21-Jan-2010 Intent (26302)By: Jailene Mayfield CNP, CNP, Mary E Spwecesbk-Zec-Bvxw (90411)By: On: 07-Jul-2009 Intent Jazmine Cantor DO EKG (31725)By: Juan LANGSTON, On: 04-Apr-2009 Intent Yoli Ear Irrigation (24937)By: On: 30-Jan-2009 Intent Jewell Hadley MD Spirometry (44270)By: Waqar On: 28-Feb-2008 Intent Jewell ALBARADO Radiology - ChestBy: Waqar On: 18-Jan-2008 Intent Jewell ALBARADO B 12 Injection, 1000 mcg On: 02-Nov-2007 Intent (J3420)By: SHALINI Velazquez Comments: Lot #:[id number] date:ount given:1 ml Route: IMSite given:left deltoid Given by: darryl B 12 Injection, 1000 mcg On: 22-Sep-2007 Intent (J3420)By: Carolann White RN COLLECT VENOUS BLOOD, On: 25-Aug-2007 Intent VENIPUNCTURE (84729)By: Magda Viveros B 12 Injection, 1000 mcg [...] Velazquez ELECTROCARDIOGRAM, COMPLETE On: 27-Mar-2007 Intent (ECG) (99577)By: Jewell Hadley MD B 12 Injection, 1000 mcg On: 27-Mar-2007 Intent (J3420)By: Jewell Hadley MD Pulse Oximetry (02496)By: On: 27-Mar-2007 Intent Jewell Hadley MD Spirometry (99087)By: Waqar On: 27-Mar-2007 Intent Jewell ALBARADO Radiology [...] 45-4 and MCM: 2048) (J3420)By: Marianne Beck (11302)By: Waqar ALBARADO, On: 09-Dec-2006 Intent Jewell Kendall [...] enzymes : DISCONTINUED - ALCOHOL, ETHYL (BLOOD) (37758) Indication: Elevated liver enzymes Elevated liver enzymes : DISCONTINUED - HEPATIC FUNCTION PANEL (07812) Indication: Elevated liver enzymes Current smoker : [...] On: 23-Sep-2017 11:20 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 Pertinent medical history includes End: 29-Sep-2016 10:56 [...] for the procedure will be doctor antonieta [facility]. Pertinent medical history includes pr End: 21-Sep-2016 [...] patient does not have durable power of claims attorney or living will. The patient has [...] Note for Leg pain: moving furniture on [facility] felt pop and pull yesterday. troule walk [...]
--- OUTSIDE RECORDS SUMMARY | 2018-12-20 02:37 | XMS RPT_ITS | Continuity of Care Document ---
:1950 Author Organization [facility] Address [address] [place] [address] Phone Care Team Providers Name Role Phone Jailene Mayfield CNP Unavailable Dr. Ger Gaston Unavailable Jennifer Osuna Unavailable Wesley Sousa Unavailable [facility] Unavailable Blaire ALBARADO, Domenic Mancilla Unavailable [...] months doing well seeing Rogerio Freitas at [place]. stil work with him on and off. [...] updated, rec. 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 Status: Active Hearing loss of [...] leg cramps (G47.62, 327.52) Comments: using micah MOVE Guides with help Status: Active Nocturnal leg cramps [...] Comments: two low T's done 09-21-16 and 8-7-81eflkya labs good, recheck psa and then cbc, [...] Ordered:25-Sep-2018 Tran LOTT Jailene Rodney LOTT Jailene eVga Start : 25-Sep-2018 Active Micah Mag Zinc +D3 Oral Tablet 1 (one) Tablet Tablet qhs for 0 days Quantity: 30 {Tablet} Refills: 0 Ordered:20-Sep-2017 Tran LOTT Jailene Rodney LOTT Jailene Vega Start : 20-Sep-2017 Active Ergocalciferol 65550 UNIT Oral Capsule 1 (one) Capsule Capsule [...] Quantity: 21 {Tablet} Refills: 0 Ordered:08-May-2018 Esequiel METAL PRODUCTS FABRICATOR ASSEMBLEROswald Delgadilloa Start : 19-Dec-2017 End : 08-May-2018 Inactive DEXILANT, 60MG (Oral Capsule Delayed Release) [address] qd for 0 days Quantity: 90 {Capsule_DR} Refills: 3 Ordered:26-Mar-2014 Long [employer]ODU[employer] FABRICATOR ASSEMBLER, Mehnaz L Start : 06-Nov-2012 End : 26-Mar-2014 Inactive DEXILANT, 60MG (Oral Capsule Delayed Release) [address] qd for 0 days Quantity: 90 {Capsule_DR} Refills: 3 Ordered:26-Mar-2014 Long METAL PRODU[employer] FABRICATOR ASSEMBLER, Mehnaz L Start : 06-Nov-2012 End : 26-Mar-2014 Inactive DICYCLOMINE HCL, 20MG (Oral Tablet) uad Tablet BID/PRN for 0 days Quantity: 30 {Tablet} Refills: 3 Ordered:26-Mar-2014 Long METAL [employer]ODU[employer] FABRICATOR ASSEMBLER, Mehnaz L Start : 03-Mar-2011 End : [...] End : 16-Dec-2014 Inactive Comments:watch sunsensitivity DRISDOL, 11055XMFR (Oral Capsule) 1 Capsule three times weekly for 0 days Quantity: 12 {Capsule} Refills: 3 Ordered:26-Mar-2014 Long METAL [employer]ODU[employer] FABRICATOR ASSEMBLER, Mehnaz L Start : 15-Feb-2012 End : [...] Quantity: 10 {Tablet} Refills: 4 Ordered:21-Mar-2017 Slarb [employer]ODU[employer] FABRICATOR ASSEMBLER, Safia Start : 06-Feb-2016 End : 21-Mar-2017 Discontinued Vitamin B Complex Oral Tablet 1 (one) Tablet daily for 30 days Quantity: 30 {Tablet} Refills: 0 Ordered:13-Jun-2017 Slarb [employer]ODU[employer] FABRICATOR ASSEMBLER, Safia Start : 16-May-2017 End : 13-Jun-2017 Discontinued Vitamin B1 100 MG Oral Tablet 1 (one) Tablet Tablet bid for 0 days Quantity: 30 {Tablet} Refills: 0 Ordered:21-Sep-2016 Slarb [employer]ODU[employer] FABRICATOR ASSEMBLER, Safia Start : 08-Jul-2014 End : 21-Sep-2016 [...] Comments: doing well seeing Rogerio Freitas at [place]. doing well. Currently in remission. doing AA [place] meeting every tuesday. going every other week. [...] ear cyst Surgery Nov Dr. Chauhan at [facility] surgery center Status: Inactive as of [...] W/WO Contrast Result: Comments: See Note; NOTES: [facility] [address] [place] [address] CT Abd/Pelvis W/WO Contrast MR#: [id number] Acct: [id number] Name: WILBERT SEGURA Rep # : [id number] : 1950 M 68 From: Syed Kraft PCP: Jailene Mayfield NP Status: REG CLI Study: CT Abd/Pelvis W/WO Contrast Date of Exam: 08/22/18 Exam# [id number] Ordering Dr: Gloria Batista ACTIVITY THERAPY TEACHER-C STUDY: CT ABDOMEN AND PELVIS WITH AND [...] are possibilities. Small hiatal hernia. Electronically Signed: ySed Kraft MD at 0:31 EDT , Service support , Fax CC: Jailene Mayfield NP; Gloria Batista NP Principal Trainer: Signed 05-Jul-[address] Lung Screening Result: Comments: See Note; NOTES: [facility] [address] [place] [address] Lung Screening MR#: [id number] Acct: [id number] Name: WILBERT SEGURA Toni Rep #: [id number] : 1950 M 68 From: Omar Montes De Oca MD PCP: Jailene Mayfield NP Status: REG CLI Study: Low Dose CT Lung Screening Date of Exam: 07/05/18 Exam# [id number] Ordering Dr: Jhony Yusuf MD STUDY: CT [...] , Service support , CC: Jailene Mayfield ACTIVITY THERAPY TEACHER; Jhony Yusuf MD Principal Trainer: Signed 03-Jul-2018 Pelvis 1 or 2 Views Result: Comments: See Note; NOTES: [facility] [address] [place] [address] Pelvis 1 or 2 Views MR#: [id number] Acct: [id number] Name: WILBERT SEGURA Rep #: [id number] : 1950 M 68 From: Yuridia Dey MD PCP: Jailene Mayfield NP Status: REG CLI Study: Pelvis 1 or 2 Views Date of Exam: 07/03/18 Exam# [id number] Ordering Dr: July Mazariegos MD STUDY: X-RAY [...] CC: Jailene Mayfield NP; July Mazariegos MD Principal Trainer: Signed 19-Dec-2017 Chest PA and Lateral Result: Comments: See Note; NOTES: [facility] [address] [place] [address] Chest PA and Lateral MR#: [id number] Acct: [id number] Name: WILBERT SEGURA Rep #: [id number] : 1950 M 67 From: Liu Fatima DO PCP: Jailene Mayfield NP Status: REG CLI Study: Chest PA and Lateral Date of Exam: 12/19/17 Exam# [id number] Ordering Dr: Sue Rooney STUDY: X-RAY THANH [...] Signed: Orlando Whalen at 13:03 EST Tel [phone], Service support , CC: Jailene Mayfield NP; ANGELICA Rooney Principal Trainer: Signed 19-Dec-2017 Chest PA and Lateral Result: Comments: See Note; NOTES: [facility] [address] [place] [address] Chest PA and Lateral MR#: [id number] Acct: [id number] Name: WILBERT SEGURA Rep #: [id number] : 1950 M 67 From: Liu Fatima DO PCP: Jailene Mayfield NP Status: REG CLI Study: Chest PA and Lateral Date of Exam: 12/19/17 Exam# [id number] Ordering Dr: Sue Rooney STUDY: X-RAY THANH [...] Signed: Orlando Whalen at 13:03 EST Tel [phone], Service support , CC: Jailene Mayfield NP; RUMA-C Sue Rooney Principal Trainer: Signed 19-Dec-2017 L/S Spine Min 4 Views Result: Comments: See Note; NOTES: [facility] [address] [place] [address] L/S Spine Min 4 Views MR#: [id number] Acct: [id number] Name: WILBERT SEGURA Rep #: [id number] : 1950 M 67 From: Liu Fatima DO PCP: Jailene Mayfield NP Status: REG CLI Study: L/S Spine Min 4 Views Date of Exam: 12/19/17 Exam# [id number] Ordering Dr: Sue Rooney STUDY: X-RAY - [...] Liu Fatima DO at 13:02 EST Tel [phone], Service support , CC: Jailene Mayfield NP; ANGELICA Rooney Principal Trainer: Signed 04-Apr-2017 Thyroid Result: Comments: See Note; NOTES: [facility] [address] [place] [address] Verdana 4d Thyroid MR#: [id number] Acct: [id number] Name: WILBERT SEGURA Rep #: [id number] : 1950 M 67 From: Liu Fatima DO PCP: Jailene Mayfield Status: REG CLI Study: Thyroid Date of Exam: 04/04/17 Exam# [id number] Ordering Dr: Jailene Mayfield STUDY: THYROID ULTRASOUND [...] Liu Fatima DO at 8:53 EDT Tel [phone], Service support , Fax CC: Jailene Mayfield Principal Trainer: Signed 02-Dec-2016 Chest PA and Lateral Result: Comments: See Note; NOTES: [facility] [address] [place] [address] Verdana 4d Chest PA and Lateral MR#: [id number] Acct: [id number] Name: WILBERT SEGURA Toni Espinoza #: [id number] : 1950 M 66 From: Liu Fatima DO PCP: Jailene Mayfield Status: REG CLI Study: Chest PA and Lateral Date of Exam: 12/02/16 Exam# [id number] Ordering Dr: Jazmine Cantor DO STUDY: X [...] Liu Fatima DO at 12:13 EST Tel [phone], Service supp ort [phone], CC: Jailene Mayfield; Jazmine Cantor DO Principal Trainer: Signed 08-Nov-2016 Chest 1 View (Portable) Result: Comments: See Note; NOTES: [facility] [address] [place] [address] Verdana 4d Chest 1 View (Portable) MR#: [id number] Acct: [id number] Name: WILBERT SEGURA Rep #: [id number] : 1950 66 From: Maxi Arana MD PCP: Jailene Mayfield Status: REG ER Study: Chest 1 View (Portable) Date of Exam: 11/08/16 Exam# [id number] Ordering Dr: Leon Rodrigues MD UDY: X-RAY [...] Maxi Arana MD at 9:02 EST Tel [phone], Service support [phone], CC: Ann Marie Mayfield; eLon Rodrigues MD Principal Trainer: Signed 28-Sep-2016 Chest PA and Lateral Result: Comments: See Note; NOTES: [facility] [address] [place] [address] Verdana 4d Chest PA and Lateral MR#: [id number] Acct: [id number] Name: WILBERT SEGURA Rep #: [id number] : 1950 M 66 From: Tree Saul MD PCP: Jailene Mayfield Status: REG CLI Study: Chest PA and Lateral Date of Exam: 09/28/16 Exam# [id number] Ordering Dr: Jailene Mayfield STUDY: X-RA Y [...] MD at 21:06 EDT , Service support [phone], CC: Jailene Mayfield Principal Trainer: Signed 21-Sep-2016 Chest PA and Lateral Result: Comments: See Note; NOTES: [facility] [address] [place] [address] Verdana 4d Chest PA and Lateral MR#: [id number] Acct: [id number] Name: WILBERT SEGURA Rep #: [id number] : 1950 M 66 From: Maxi Arana MD PCP: Jailene Mayfield Status: REG CLI Study: Chest PA and Lateral Date of Exam: 09/21/16 Exam# [id number] Ordering Dr: Jailene Mayfield STUDY: X-RAY CHEST [...] Arana MD 2015 at 15:14 EDT Tel [phone], Service support [phone], CC: Jailene Mayfield Principal Trainer: Signed 06-Feb-2016 Spirometry (43523) Comments: see scanned document of test done to see results reviewed today with patient Result: 20-May-2014 Cerv Spine 4 or 5 Views Result: Comments: See Note; NOTES: [facility] [address] [place] [address] Radiology Report MR#: [id number] Acct: [id number] Name: WILBERT SEGURA Rep #: [id number] : 1950 M 64 From: Liu Fatima DO PCP: Jewell Hadley MD Status: REG CLI Study: Cerv Spine 4 or 5 Views Date of Exam: 05/20/14 Exam# [id number] Ordering Dr: Jailene Mayfield STUDY: X-RAY - [...] Liu Fatima DO at 9:03 EDT Tel [phone], Service support [phone], CC: Jailene Mayfield; Jewell Hadley MD Principal Trainer: Signed Family History Unknown Family Member Name [...] kg/m2 Body Surface Area Calculated 2.09 m2 7-Dpa-470542:20 Temperature 98.2 f Pulse 82 /min Comments: [...] Description Value Details :28 CREATININE FINGERSTICK [facility] [place] [address] [place] [address] CREATININE WB 0.8 mg/dL (Normal) Range: 0.70-1.30 [...] ANTI-ABIGAIL <0.2 {AI} (Normal) Range: 0.0-0.9 :41 Zchf-Jdpvlyzflzz-11 AB Comments: [facility] (refer to report for specific site)refer to report for address and phone number ANTISCLER <0.2 {AI} (Normal) Range: 0.0-0.9 :41 ANTINUCLEAR ANTIBODIES DIRECT Comments: [facility] (refer to report for specific site)refer to report for address and phone number ALISON-DIRECT Positive (Abnormal) Comments: Performed at: - [facility] [id number] Director: Ger Gonzalez PhD, Phone: [phone] :41 CBC W/Diff, Automated Comments: [facility] [address] [place], [place], [id number] Absolute Lymph 1.86 {X10_3/ul} (Normal) Range: 0.83-4.51 [...] report for address and phone number ANTI-CCP 606129 5 {units} (Normal) Range: 0-19 Comments: Negative [...] Range: 14-44 :41 Comprehensive Metabolic Profil Comments: [facility] [address] [place], [place], [id number] GAP 5 (Normal) Range: 5-15 CO2 29.0 [...] Comments: Please note revised GLUCOSE reference range nfonjvyrb85/02/2018. :41 Hep B Surface Antibodies Comments: [facility] [...] AG Negative (Normal) Comments: Performed at: - [facility] [id number] Director: Ger Gonzalez PhD, Phone: [phone] at: [facility] [address] [id number] Director: Raghu Bowles PhD, Phone: [phone] at: [facility] [id number] Director: Glenn Armijo MD, Phone: [phone] :41 Hepatitis C Antibodies Comments: [facility] (refer to report for specific site)refer to report for address and phone number HEP C AB <0.1 {s/co_ratio} Range: 0.0-0.9 (Normal) Comments: Negative: < 0.8 Indeterminate: 0.8 - 0.9 Positive: > 0.9 The CDC recommends that a positive HCV antibody result be followed up with a HCV Nucleic Acid Amplification test (999317). : HLA B27 Negative (Normal) Comments: [facility] (refer to report for specific site)refer to report for address and phone number 41 Comments: HLA-B*27 AmmuzbbtC33 allele interpretation for all loci based on IMGT/HLAdatabase version 3.27This test was developed and its performance characteristicsdetermined by [facility]. It has not been cleared o r approvedby the Food and Drug Administration.[facility] Lab CLIA ID Number [id number] test was performed using PCR (Polymerase ChainReaction)/SSOP (Sequence Specific Oligonucleotide Probes)technique. SBT (Sequence Based Typing) and/or SSP(Sequence Specific Primers) may be used as supplementalmethods when necessary. Please contact [facility] CustomerService at if you have any questions. Director of [facility] Laboratory Dr Raghu Bowles, PhD 7-Qek-517436:41 Protein+Creatinine Ratio,Urine Comments: [facility] Bejsydxhct1423 [facility] HairDebbie [place], [place], [id number] PROT:CRE RATIO 102 {mg/g_CRE} (Normal) Range: 0-200 PROTEIN,UR.RAN. 17.0 mg/dL (Abnormal) UR CREAT 166.00 mg/dL (Normal) 1-Bqv-138021:41 Urinalysis, Routine (Dipstick) Comments: How was Urine Obtained? [facility] Bdmpzubklq3923 [facility] [place], [place], [id number] LEUK ESTERASE 25 /ul (Abnormal) OCCULT BLOOD-UR 10 /ul (Abnormal) NITRITE UR Negative (Normal) UROBILI 4 mg/dL (Abnormal) PROT DIPSTX Negative mg/dL (Normal) pH UR 7.0 (Normal) Range: 5.0 - 8.0 SP.GR. DIPSTX 1.015 (Normal) Range: 1.002-1.030 KETONE UR Negative mg/dL (Normal) BILIRUBIN URINE Negative mg/dL (Normal) GLUCOSE, UR Normal mg/dL (Normal) CLARITY Clear (Normal) COLOR Yellow (Normal) 4-Jdn-020055:35 CBC, Platelets & Auto Diff Comments: PATIENT NOT FASTINGPERFORMED BY: [facility] Drvrzw4362 [facility] [id number] ([id number]) Immature Grans (Abs) 0.0 {x10E3/uL} (Normal) Range: [...] 4.14-5.80 WBC 8.2 {x10E3/uL} (Normal) Range: 3.4-10.8 07-Uvu-127504:24 Systemic Lupus Profile A Comments: PATIENT NOT FASTINGPERFORMED BY: [facility] DoverMvtfln5748 [facility] [id number] Anti-DNA (DS) Ab Qn 16 {IU/mL} Range: 0-9 (Abnormal) Comments: Negative <5 Equivocal 5 - 9 Positive >9 Sjogren's Anti-SS-B <0.2 {AI} (Normal) Range: 0.0-0.9 Sjogren's Anti-SS-A <0.2 {AI} (Normal) Range: 0.0-0.9 Antichromatin Antibodies 0.3 {AI} (Normal) Range: 0.0-0.9 RA Latex Turbid. <10.0 {IU/mL} Range: 0.0-13.9 (Normal) Diaz Antibodies <0.2 {AI} (Normal) Range: 0.0-0.9 DIRECTOR QUALITY SYSTEMS Antibodies <0.2 {AI} (Normal) Range: 0.0-0.9 17-May-2018 Written Authorization WAR (Normal) Comments: PATIENT NOT FASTINGPERFORMED BY: [facility] Uylgwv0986 [facility] [id number] 11:24 Comments: Written Authorization Received.Authorization received from SHALINI VELAZQUEZ LPN [id number] by Yoli Mcginnis 79-Xlv-362508:24 HGB A1C (77116) Comments: PATIENT NOT FASTINGPERFORMED BY: [facility] Hlcsvr0034 [facility] [id number] Hemoglobin A1c 5.7 % (Abnormal) Range: 4.8-5.6 Comments: . Pre-diabetes: 5.7 - 6.4 Diabetes: >6.4 Glycemic control for adults with diabetes: <7.0 02-Yqb-022226:24 EBV ACUTE PFOF IgG/IgM Comments: PATIENT NOT FASTINGPERFORMED BY: [facility] Awpzoy6118 [facility] [id number] (20114) Interpretation: [facility] (Normal) Comments: EBV Interpretation Chart . [...] 43.9 Positive >43.9 :24 CMV IGM ANTBDY (05072) Comments: PATIENT NOT FASTINGPERFORMED BY: [facility] Tuebqx0872 [facility] [id number] Cytomegalovirus (CMV) Ab, IgM <30.0 AU/mL (Normal) Range: 0.0-29.9 Comments: Negative <30.0 Equivocal 30.0 - 34.9 Positive >34.9 A positive result is generally indicative of acute infection, reactivation or persistent IgM production. :24 CALCIFIDIOL (13102) VIT D 25 Comments: PATIENT NOT FASTINGPERFORMED BY: [facility] Lnpmbn6837 [facility] [id number] Vitamin D, 25-Hydroxy 63.7 ng/mL (Normal) Range: 30.0-100.0 Comments: Vitamin D deficiency has been defined by the [place] [facility] and an Endocrine Society practice guideline as alevel of serum 25-OH vitamin D less than 20 ng/mL (1,2).The Endocrine Society went on to further define vitamin Dinsufficiency as a level between 21 and 29 ng/mL (2).1. IOM ([place] of Medicine). 2010. Dietary reference intakes for calcium and D. [place]: The National Academies Press.2. Clifton MF, Robbi NC, Ladarius GONZALES, et al. Evaluation, treatment, and prevention of vitamin D deficiency: an Endocrine Society clinical practice guideline. JCEM. 2010; 96(7):1911-30. 28-Qbi-492408:24 VITAMIN B-12 (CYANOCOBALAMIN) Comments: PATIENT NOT FASTINGPERFORMED BY: [facility] Uloxwj9125 [facility] [id number] (36652) Vitamin B12 476 pg/mL (Normal) Range: 232-1245 07-Gvb-752474:24 TSH (29429) Comments: PATIENT NOT FASTINGPERFORMED BY: [facility] Pbcwpo6515 [facility] [id number] TSH 0.509 {uIU/mL} (Normal) Range: 0.450-4.500 97-Wwd-376776:24 SED RATE ERYTHROCYTE (80110) Comments: PATIENT NOT FASTINGPERFORMED BY: [facility] DoverZcjsiv8712 [facility] [id number] Sedimentation Rate-Westergren 2 mm/h (Normal) Range: 0-30 96-Gkl-299254:24 METABOLIC PANEL, COMPREHENSIVE Comments: PATIENT NOT FASTINGPERFORMED BY: [facility] Zhmsjf3413 [facility] [id number] (62338) ALT (SGPT) 15 [iU]/L (Normal) Range: 0-44 [...] 8-27 Glucose 101 mg/dL (Abnormal) Range: 65-99 36-Ozy-024981:24 C-REACTIVE PROTEIN (26681) Comments: PATIENT NOT FASTINGPERFORMED BY: [place] [address] [facility] [id number] C-Reactive Protein, Quant 5.5 mg/L (Abnormal) Range: 0.0-4.9 15-Whh-817091:24 CBC (AUTO) (56933) Comments: PATIENT NOT FASTINGPERFORMED BY: [address] [id number] Platelets 232 {x10E3/uL} (Normal) Range: 150-379 RDW 13.4 % (Normal) Range: 12.3-15.4 MCHC 34.2 g/dL (Normal) Range: 31.5-35.7 MCH 33.3 pg (Abnormal) Range: 26.6-33.0 MCV 97 fL (Normal) Range: 79-97 Hematocrit 47.9 % (Normal) Range: 37.5-51.0 Hemoglobin 16.4 g/dL (Normal) Range: 13.0-17.7 RBC 4.92 {x10E6/uL} (Normal) Range: 4.14-5.80 WBC 7.0 {x10E3/uL} (Normal) Range: 3.4-10.8 77-Tbe-745107:24 ALISON (ANTINUCLEAR ANTIBODY) Comments: PATIENT NOT FASTINGPERFORMED BY: [address] [id number] (16410) ALISON Direct Positive (Abnormal) :41 MAGNESIUM (11663) Comments: PATIENT NOT FASTINGPERFORMED BY: [place] [address] [facility] [id number] Magnesium 2.2 mg/dL (Normal) Range: 1.6-2.3 91-Gvj-19848:41 TSH (84123) Comments: PATIENT NOT FASTINGPERFORMED BY: [address] [id number] TSH 1.070 {uIU/mL} (Normal) Range: 0.450-4.500 46-Vcr-93991:41 CBC, Platelets & Auto Diff Comments: PATIENT NOT FASTINGPERFORMED BY: [facility]6370 [facility] [id number] (13638) Immature Grans (Abs) 0.0 {x10E3/uL} (Normal) Range: [...] 4.14-5.80 WBC 8.3 {x10E3/uL} (Normal) Range: 3.4-10.8 88-Bfj-95194:41 Metabolic Panel, Comprehensive Comments: PATIENT NOT FASTINGPERFORMED BY: [facility]6370 [facility] [id number] (76484) ALT (SGPT) 16 [iU]/L (Normal) Range: 0-44 [...] 8-27 Glucose 99 mg/dL (Normal) Range: 65-99 15-Tmp-787651:20 HgA1C , Office (28567) HgA1C , Office 5.5 % (Normal) Range: 4.6 - 7.1 :31 LIPID PANEL (61518) Comments: PATIENT WAS FASTINGPERFORMED BY: [facility] DoverCtmshr8826 [facility] [id number] LDL/HDL Ratio 2.1 {ratio_units} (Normal) Range: 0.0-3.6 [...] 173 mg/dL (Normal) Range: 100-199 :31 CALCIFEDIOL (36566) Comments: PATIENT WAS FASTINGPERFORMED BY: [facility]6370 [facility] [id number] Vitamin D, 25-Hydroxy 54.2 ng/mL (Normal) Range: 30.0-100.0 Comments: Vitamin D deficiency has been defined by the [place] of[place]icine and an Endocrine Society practice guideline as alevel of serum 25-OH vitamin D less than 20 ng/mL (1,2).The Endocrine Society went on to further define vitamin Dinsufficiency as a level between 21 and 29 ng/mL (2).1. IOM ([place] of Medicine). 2010. Dietary reference intakes for calcium and D. [place]: The National Academies Press.2. Clifton MF, Robbi MADRID, Ladarius GONZALES, et al. Evaluation, treatment, and prevention of vitamin D deficiency: an Endocrine Society clinical practice guideline. JCEM. 2010; 96(7):1911-30. :31 CBC, Platelets & Auto Diff Comments: PATIENT WAS FASTINGPERFORMED BY: [facility]CoRo[facility] HospitalGmkplb6169 [facility] [id number] (95052) Immature Grans (Abs) 0.0 {x10E3/uL} (Normal) Range: [...] 6.4 {x10E3/uL} (Normal) Range: 3.4-10.8 :31 TSH (40243) Comments: PATIENT WAS FASTINGPERFORMED BY: Content360[facility] HospitalLedbgn1645 [facility] [id number] TSH 0.564 {uIU/mL} (Normal) Range: 0.450-4.500 :31 Metabolic Panel, Comprehensive Comments: PATIENT WAS FASTINGPERFORMED BY: WinBuyerRoosevelt [facility] HospitalAexepe3391 [facility] [id number] (19489) ALT (SGPT) 11 [iU]/L (Normal) Range: 0-44 [...] 110 mg/dL (Abnormal) Range: 65-99 :03 CALCIFEDIOL (34760) Comments: today; PATIENT NOT FASTINGPERFORMED BY: CAD Best70 [facility] [id number] Vitamin D, 25-Hydroxy 51.0 ng/mL (Normal) Range: 30.0-100.0 Comments: Vitamin D deficiency has been defined by the [place] of[place]icine and an Endocrine Society practice guideline as alevel of serum 25-OH vitamin D less than 20 ng/mL (1,2).The Endocrine Society went on to further define vitamin Dinsufficiency as a level between 21 and 29 ng/mL (2).1. IOM ([place] of Medicine). 2010. Dietary reference intakes for calcium and D. [place]: The National Academies Press.2. Clifton MF, Robbi NC, Ladarius GONZALES, et al. Evaluation, treatment, and prevention of vitamin D deficiency: an Endocrine Society clinical practice guideline. JCEM. 2010; 96(7):1911-30. :03 VITAMIN B12 AND FOLATES Comments: today; PATIENT NOT FASTINGPERFORMED BY: CAD Best70 [facility] [id number] (89955) Folate (Folic Acid), Serum 10.2 ng/mL (Normal) Comments: A serum folate concentration of less than 3.1 ng/mL isconsidered to represent clinical deficiency. Vitamin B12 1184 pg/mL (Abnormal) Range: 211-946 :03 MAGNESIUM (38894) Comments: today; PATIENT NOT FASTINGPERFORMED BY: [employer]6370 [place] [id number] Magnesium, Serum 2.1 mg/dL (Normal) Range: 1.6-2.3 6-Usa-675606:09 T4, FREE (THYROXINE) (70614) Comments: PATIENT NOT FASTINGPERFORMED BY: [facility]la[facility] Hospital6370 [facility] [id number] T4,Free(Direct) 1.03 ng/dL (Normal) Range: 0.82-1.77 5-Mbp-924627:09 T3, FREE (TRIDOTHYRONINE) (79173) Comments: PATIENT NOT FASTINGPERFORMED BY: [facility]6370 [facility] [id number] Triiodothyronine,Free,Serum 3.7 pg/mL (Normal) Range: 2.0-4.4 9-Itw-505477:09 TSH (THYROID STIMULATING Comments: PATIENT NOT FASTINGPERFORMED BY: [facility]6370 [facility] [id number] HORMONE) (45805) TSH 0.464 {uIU/mL} (Normal) Range: 0.450-4.500 17-Orc-739611:47 CBC, Platelets & Auto Diff Comments: PATIENT NOT FASTINGPERFORMED BY: [facility] Recipe[facility]lawn Hospital6370 [facility] [id number] (25716) Immature Grans (Abs) 0.0 {x10E3/uL} (Normal) Range: [...] Range: 3.4-10.8 :47 CPK TOTAL & ISOENZYMES (46635) Comments: PATIENT NOT FASTINGPERFORMED BY: Content360[facility] at DoverVqasqw7098 [facility] [id number] CK-BB 0 % (Normal) CK-MB 0 % (Normal) Range: 0-3 Macro Type 1 0 % (Normal) CK-MM 100 % (Normal) Range: 97-100 Macro Type 2 0 % (Normal) Creatine Kinase,Total,Serum 182 U/L (Normal) Range: 24-204 :47 CALCIFEDIOL (49525) Comments: PATIENT NOT FASTINGPERFORMED BY: Content360[facility] at DoverKdirem2969 [facility] [id number] Vitamin D, 25-Hydroxy 45.7 ng/mL (Normal) Range: 30.0-100.0 Comments: Vitamin D deficiency has been defined by the [place] [facility] and an Endocrine Society practice guideline as alevel of serum 25-OH vitamin D less than 20 ng/mL (1,2).The Endocrine Society went on to further define vitamin Dinsufficiency as a level between 21 and 29 ng/mL (2).1. IOM ([place] of Medicine). 2010. Dietary reference intakes for calcium and D. [place]: The National Academies Press.2. Clifton MF, Robbi MADRID, Ladarius GONZALES, et al. Evaluation, treatment, and prevention of vitamin D deficiency: an Endocrine Society clinical practice guideline. JCEM. 2010; 96(7):1911-30. :47 TSH (THYROID STIMULATING Comments: PATIENT NOT FASTINGPERFORMED BY: [facility] Rehoeg1504 [facility] [id number] HORMONE) (55115) TSH 0.367 {uIU/mL} (Abnormal) Range: 0.450-4.500 55-Ywd-820942:42 PSA (Medicare - G0103) Comments: today; PATIENT NOT FASTINGPERFORMED BY: CB [facility] Jgewzg6787 [facility] [id number]; OV 01/25/17 (64625) Prostate Specific Ag, 0.6 ng/mL (Normal) Range: 0.0-4.0 Serum Comments: InteligisticsIA methodology. .According to the [place] U[employer] Association, Serum PSA shoulddecrease and remain at undetectable levels after radicalprostatectomy. The AUA defines biochemical recurrence as an initialPSA value 0.2 ng/mL or greater followed by a subsequent confirmatoryPSA value 0.2 ng/mL or greater.Values obtained with d ifferent assay methods or kits cannot be usedinterchangeably. Results cannot be interpreted as absolute evidenceof the presence or absence of malignant disease. 78-Vzq-855063:10 CBC, Platelets & Auto Diff Comments: PATIENT WAS FASTINGPERFORMED BY: Secret RecipeCorp Uldjcj0865 [facility] [id number] (76556) Immature Grans (Abs) 0.0 {x10E3/uL} (Normal) Range: [...] 4.14-5.80 WBC 7.2 {x10E3/uL} (Normal) Range: 3.4-10.8 21-Rvz-499122:10 TSH (88588) Comments: PATIENT WAS FASTINGPERFORMED BY: Content360 Fijrhs7750 [facility] [id number] TSH 0.537 {uIU/mL} (Normal) Range: 0.450-4.500 08-Eal-191535:10 Metabolic Panel, Comprehensive Comments: PATIENT WAS FASTINGPERFORMED BY: LabCoSaint Clare's Hospital at DoverCsuiep6167 [facility] [id number]; ov 01/21 (25987) ALT (SGPT) 16 [iU]/L (Normal) Range: 0-44 [...] Glucose, Serum 83 mg/dL (Normal) Range: 65-99 17-Hoh-429569:10 Lipid Panel (10843) Comments: PATIENT WAS FASTINGPERFORMED BY: CAD Best70 GenomindFormerly [facility] [id number] LDL/HDL Ratio 2.0 {ratio_units} (Normal) Range: 0.0-3.6 Comments: LDL/HDL Ratio Men Women 1/2 Avg.Risk 1.0 1.5 Av g.Risk 3.6 3.2 2X Avg.Risk 6.2 5.0 3X Avg.Risk 8.0 6.1 LDL Cholesterol Calc 106 mg/dL (Abnormal) Range: 0-99 VLDL Cholesterol Micah 18 mg/dL (Normal) Range: 5-40 HDL Cholesterol 52 mg/dL (Normal) Triglycerides 88 mg/dL (Normal) Range: 0-149 Cholesterol, Total 176 mg/dL (Normal) Range: 100-199 21-Ytd-206697:10 CALCIFEDIOL (80819) Comments: PATIENT WAS FASTINGPERFORMED BY: Ohmconnect6370 GenomindFormerly [facility] [id number] Vitamin D, 25-Hydroxy 42.8 ng/mL (Normal) Range: 30.0-100.0 Comments: Vitamin D deficiency has been defined by the [place] of[place]icine and an Endocrine Society practice guideline as alevel of serum 25-OH vitamin D less than 20 ng/mL (1,2).The Endocrine Society went on to further define vitamin Dinsufficiency as a level between 21 and 29 ng/mL (2).1. IOM ([place] of Medicine). 2010. Dietary reference intakes for calcium and D. [place]: The National Academies Press.2. Clifton MF, Robbi MADRID, Ladarius GONZALES, et al. Evaluation, treatment, and prevention of vitamin D deficiency: an Endocrine Society clinical practice guideline. JCEM. 2010; 96(7):1911-30. :50 Basic Metabolic Profile (BMP) Comments: 'TROP' Serial specimen #1, #2, #3, or #4: [address] [place] [address] Icgiobhwrk8989 [place], [address] GAP 3 (Abnormal) Range: 5-15 CO2 26.0 [...] A.D.A. criteria. :50 CBC W/Diff, Automated Comments: [facility] Bkx[address] [place], [address] ; another doc Absolute Lymph [...] Serial specimen #1, #2, #3, or #4: [facility] Gnfwdcphph[address] [place], [address] TROPONIN-I < 0.02 ng/mL (Normal) Comments: TROPONIN-I EXPECTED VALUES <0.05 NEGATIVE 0.06 - 0.59 AT RISK OF MD > OR = 0.60 SUGGEST MD :40 TESTOSTERONE FREE (37506) Comments: PATIENT NOT FASTINGPERFORMED BY: [address] [id number] Free Testosterone(Direct) 5.8 pg/mL (Abnormal) Range: 6.6-18.1 26-Dyv-862322:40 TSH (THYROID STIMULATING Comments: PATIENT NOT FASTINGPERFORMED BY: [address] [id number] BY: [address] [id number] HORMONE) (28729) TSH 0.600 {uIU/mL} (Normal) Range: 0.450-4.500 :40 TESTOSTERONE ,TOT/FREE Comments: PATIENT NOT FASTINGPERFORMED BY: Secret Recipe[address] [id number] BY: [address] [id number] (64925) Free Testosterone(Direct) 5.2 pg/mL (Abnormal) Range: 6.6-18.1 Comment: TESTM (Normal) Comments: Adult male reference interval is based on a population of lean malesup to 40 years old. Testosterone, Serum 275 ng/dL (Abnormal) Range: 348-1197 18-Pze-394237:40 PT (PROTHROMBIN TIME) Comments: PATIENT NOT FASTINGPERFORMED BY: [address] [id number] BY: [address] [id number] (39569) Prothrombin Time 10.4 {sec} (Normal) Range: 9.1-12.0 INR 1.0 (Normal) Range: 0.8-1.2 Comments: Reference interval is for non-anticoagulated patients. . Suggested INR therapeutic range for Vitamin K anta gonist therapy: Standard Dose (moderate intensity therapeutic range): 2.0 - 3.0 Higher intensity therapeutic range 2.5 - 3.5 41-Ytj-744158:40 CBC, PLATELETS & AUT DIFF Comments: PATIENT NOT FASTINGPERFORMED BY: Content360[place] 9147870 [facility] [id number] BY: Secret Recipe[address] [id number] (20141) Immature Grans (Abs) 0.0 {x10E3/uL} (Normal) Range: [...] 4.14-5.80 WBC 7.8 {x10E3/uL} (Normal) Range: 3.4-10.8 33-Unt-763939:40 Metabolic Panel, Basic Comments: PATIENT NOT FASTINGPERFORMED BY: Content360Saint [facility] at DoverEmsdze7753 [facility] [id number] BY: Secret Recipe[address] [id number] (60676) Calcium, Serum 8.9 mg/dL (Normal) Range: 8.6-10.2 [...] Panel, Comments: PATIENT NOT FASTINGPERFORMED BY: LabCoSaint Clare's Hospital at DoverJwxqsx0971 [facility] [id number] Information: [id number] Comprehensive (21416) ALT (SGPT) 11 [iU]/L (Normal) Range: 0-44 [...] (THYROID STIMULATING Comments: PATIENT NOT FASTINGPERFORMED BY: FullbridgeFormerly [facility] [id number] HORMONE) (62578) TSH 0.483 {uIU/mL} (Normal) Range: 0.450-4.500 :46 MAGNESIUM (66451) Comments: PATIENT NOT FASTINGPERFORMED BY: PlayCanvasECU [facility] [id number] Magnesium, Serum 1.9 mg/dL (Normal) Range: 1.6-2.3 :53 MICROALBUMIN: CREATININE RATIO Comments: PATIENT NOT FASTINGPERFORMED BY: PlayCanvasEC[facility] [id number] (98149) AND (69979) Microalb/Creat Ratio 3.2 {mg/g_creat} (Normal) Range: 0.0-30.0 Microalbumin, Urine 4.2 ug/mL (Normal) Range: 0.0-17.0 Creatinine, Urine 130.8 mg/dL (Normal) Range: 22.0-328.0 :53 URINALYSIS (22465) Comments: PATIENT NOT FASTINGPERFORMED BY: WinBuyer Good Travel SoftwareBarton County Memorial Hospital [id number] Information: [id number] Microscopic Examination MICNIP (Normal) Comments: Microscopic not indicated and not performed. Nitrite, Urine Negative (Normal) Urobilinogen,Semi-Qn 1.0 mg/dL (Normal) Range: 0.2-1.0 Bilirubin Negative (Normal) Occult Blood Negative (Normal) Ketones Negative (Normal) Glucose Negative (Normal) Protein Negative (Normal) WBC Esterase Negative (Normal) Appearance Clear (Normal) Urine-Color Yellow (Normal) pH 7.0 (Normal) Range: 5.0-7.5 Specific [place] 1.027 (Normal) Range: 1.005-1.030 :56 PSA (PROSTATE SPECIFIC Comments: PATIENT WAS FASTINGPERFORMED BY: Ohmconnect6370 [facility] [id number] ANTIGEN) (V76.44) Prostate Specific Ag, 0.6 ng/mL (Normal) Range: 0.0-4.0 Serum Comments: InteligisticsIA methodology. .According to the [place] U[employer] Association, Serum PSA shoulddecrease and remain [...] PANEL, COMPREHENSIVE Comments: PATIENT WAS FASTINGPERFORMED BY: Ohmconnect6370 [facility] [id number] (29638) ALT (SGPT) 12 [iU]/L (Normal) Range: 0-44 [...] mg/dL (Abnormal) Range: 65-99 :56 LIPID PANEL (04236) Comments: PATIENT WAS FASTINGPERFORMED BY: FullbridgeFormerly [facility] [id number] LDL/HDL Ratio 2.4 {ratio_units} (Normal) Range: 0.0-3.6 [...] auto diff Comments: PATIENT WAS FASTINGPERFORMED BY: Ohmconnect6370 [facility] [id number] Information: [id number] (69788) Immature Grans (Abs) 0.0 {x10E3/uL} (Normal) Range: [...] 7.3 {x10E3/uL} (Normal) Range: 3.4-10.8 01-Dec-20158:56 CALCIFIDIOL (50624) VIT D 25 Comments: PATIENT WAS FASTINGPERFORMED BY: LabCoSaint Clare's Hospital at DoverCspdjk9282 [facility] [id number] Vitamin D, 25-Hydroxy 45.0 ng/mL (Normal) Range: 30.0-100.0 Comments: Vitamin D deficiency has been defined by the [place] of[place]icine and an Endocrine Society practice guideline as alevel of serum 25-OH vitamin D less than 20 ng/mL (1,2).The Endocrine Society went on to further define vitamin Dinsufficiency as a level between 21 and 29 ng/mL (2).1. IOM ([place] of Medicine). 2010. Dietary reference intakes for calcium and D. [place]: The National Academies Press.2. Clifton MF, Robbi [place], Ladarius GONZALES, et al. Evaluation, treatment, and prevention of vitamin D deficiency: an Endocrine Society clinical practice guideline. JCEM. 2010; 96(7):1911-30. :20 HgA1C , Office (25439) HgA1C , Office 5.9 % (Normal) Range: 4.6 - 7.1 :36 Vitamin B-12 (cyanocobalamin) Comments: PATIENT NOT FASTINGPERFORMED BY: [facility] Inzklx5570 Perry RoadDublin [place] [id number] (81198) Vitamin B12 1444 pg/mL (Abnormal) Range: 211-946 :36 CALCIFIDIOL (82863) VIT D 25 Comments: PATIENT NOT FASTINGPERFORMED BY: CB [facility] Tyafvp5935 Perry RoadDublin [place] [id number] Vitamin D, 25-Hydroxy 32.0 ng/mL (Normal) Range: 30.0-100.0 Comments: Vitamin D deficiency has been defined by the [place] [facility] and an Endocrine Society practice guideline as alevel of serum 25-OH vitamin D less than 20 ng/mL (1,2).The Endocrine Society went on to further define vitamin Dinsufficiency as a level between 21 and 29 ng/mL (2).1. IOM ([place] of Medicine). 2010. Dietary reference intakes for calcium and D. [place]: The National Academies Press.2. Clifton MF, Robbi NC, Ladarius GONZALES, et al. Evaluation, treatment, and prevention of vitamin D deficiency: an Endocrine Society clinical practice guideline. JCEM. 2010; 96(7):1911-30. :36 TSH (91451) Comments: PATIENT NOT FASTINGPERFORMED BY: CB [facility] Qvhboe6901 Perry RoadDublin [place] [id number] Information: [id number] TSH 0.575 {uIU/mL} (Normal) Range: 0.450-4.500 :51 CBC With Differential/Platelet Comments: PATIENT WAS FASTINGPERFORMED BY: CB [facility] Fgdlev9973 Perry RoadDublin [place] [id number] Information: [id number] Immature Grans (Abs) 0.0 {x10E3/uL} (Normal) Range: [...] 4.14-5.80 WBC 7.3 {x10E3/uL} (Normal) Range: 3.4-10.8 2-Rdg-452090:51 Comp. Metabolic Panel (14) Comments: PATIENT WAS FASTINGPERFORMED BY: LabCoSaint Clare's Hospital at DoverXmhgdc8902 [facility] [id number] ALT (SGPT) 15 [iU]/L (Normal) Range: 0-44 [...] With LDL/HDL Comments: PATIENT WAS FASTINGPERFORMED BY: FullbridgeFormerly [facility] [id number] Ratio LDL/HDL Ratio 2.1 {ratio_units} Range: 0.0-3.6 [...] pg/mL (Normal) Comments: PATIENT WAS FASTINGPERFORMED BY: CAD Best70 [facility] [id number] 1:51 Range: 211-946 Vitamin D, 25-Hydroxy 40.7 ng/mL (Normal) Comments: PATIENT WAS FASTINGPERFORMED BY: Secret RecipeCenterpoint Medical Center Rfxohh5573 [facility] [id number] 1:51 Range: 30.0-100.0 Comments: Vitamin D deficiency has been defined by the [place] of[place]icine and an Endocrine Society practice guideline as alevel of serum 25-OH vitamin D less than 20 ng/mL (1,2).The Endocrine Society went on to further define vitamin Dinsufficiency as a level between 21 and 29 ng/mL (2).1. IOM ([place] of Medicine). 2010. Dietary reference intakes for calcium and D. [place]: The National Academies Press.2. Robbi Morales, Ladarius GONZALES, et al. Evaluation, treatment, and prevention of vitamin D deficiency: an Endocrine Society clinical practice guideline. JCEM. 2010; 96(7):1911-30. 04-Euj-440882:22 CALCIFIDIOL (64573) VIT D Comments: PATIENT NOT FASTINGPERFORMED BY: Secret RecipeCenterpoint Medical Center Ddyxmu0232 [facility] [id number] Information: [id number] 25 Vitamin D, 25-Hydroxy 31.8 ng/mL (Normal) Range: 30.0-100.0 Comments: Vitamin D deficiency has been defined by the [place] of[place]icine and an Endocrine Society practice guideline as alevel of serum 25-OH vitamin D less than 20 ng/mL (1,2).The Endocrine Society went on to further define vitamin Dinsufficiency as a level between 21 and 29 ng/mL (2).1. IOM ([place] of [place]). 2010. Dietary reference intakes for calcium and D. [place]u [place]: The National Academies Press.2. Robbi Morales, Ladarius GONZALES, et al. Evaluation, treatment, and prevention of vitamin D deficiency: an Endocrine Society clinical practice guideline. JCEM. 2010; 96(7):1911-30. One Specimen SPRCS (Normal) Comments: PATIENT NOT FASTINGPERFORMED BY: [facility] Hospitalton1447 [facility] [id number] BY: [facility]6370 [facility] [id number] 1:25 Identifier Comments: The specimen received included only one patient identifier on theprimary collection container. Our laboratory accrediting agencystates All primary specimen containers must be labeled with 2identifiers at the time of collection. 30-Pwz-154811:25 THIAMINE (B-1) (25276) Comments: PATIENT NOT FASTINGPERFORMED BY: Content360[facility] Fore[facility] CenterEymlitsmmd3470 [facility] [id number] BY: Secret RecipeOaklawn Hospital6370 [facility] [id number] Vit. B1, Whole Blood 159.7 nmol/L (Normal) Range: 66.5-200.0 14-Zwz-774464:08 CBC (Auto) (65529) Comments: PATIENT WAS FASTINGPERFORMED BY: [facility]6370 [facility] [id number] Information: [id number] Platelets 202 {x10E3/uL} (Normal) Range: 150-379 RDW 12.6 % (Normal) Range: 12.3-15.4 MCHC 34.3 g/dL (Normal) Range: 31.5-35.7 MCH 31.3 pg (Normal) Range: 26.6-33.0 MCV 91 fL (Normal) Range: 79-97 Hematocrit 44.0 % (Normal) Range: 37.5-51.0 Hemoglobin 15.1 g/dL (Normal) Range: 12.6-17.7 RBC 4.83 {x10E6/uL} (Normal) Range: 4.14-5.80 WBC 8.2 {x10E3/uL} (Normal) Range: 3.4-10.8 39-Qlo-423315:08 PTT (Activated Partial Comments: PATIENT WAS FASTINGPERFORMED BY: [facility]6370 [facility] [id number] Thromboplastin Time) (20988) aPTT 31 {sec} (Normal) Range: 24-33 Comments: This test has not been validated for monitoring unfractionated heparintherapy. aPTT-based therapeutic ranges for unfractionated heparintherapy have not been established. For general guidelines onHeparin monitoring, refer to the [facility] Directory of Services. :08 PT (Prothrobim Time) (25584) Comments: PATIENT WAS FASTINGPERFORMED BY: SATHISH [facility]6370 [facility] [id number] Prothrombin Time 10.4 {sec} (Normal) Range: 9.1-12.0 INR 1.0 (Normal) Range: 0.8-1.2 Comments: Reference interval is for non-anticoagulated patients. . Suggested INR therapeutic range for Vitamin K anta gonist therapy: Standard Dose (moderate intensity therapeutic range): 2.0 - 3.0 Higher intensity therapeutic range 2.5 - 3.5 :09 CALCIFIDIOL (30175) VIT D 25 Comments: PATIENT WAS FASTINGPERFORMED BY: SATHISH [facility]6370 [facility] [id number] Vitamin D, 25-Hydroxy 15.8 ng/mL (Abnormal) Range: 30.0-100.0 Comments: Vitamin D deficiency has been defined by the [place] of[place]icine and an Endocrine Society practice guideline as alevel of serum 25-OH vitamin D less than 20 ng/mL (1,2).The Endocrine Society went on to further define vitamin Dinsufficiency as a level between 21 and 29 ng/mL (2).1. IOM ([place] of [place]). 2010. Dietary reference intakes for calcium and D. [place]: The National Academies Press.2. Clifton MF, Robbi NC, Ladarius GONZALES, et al. Evaluation, treatment, and prevention of vitamin D deficiency: an Endocrine Society clinical practice guideline. JCEM. 2010; 96(7):1911-30. :09 Vitamin B-12 (cyanocobalamin) Comments: PATIENT WAS FASTINGPERFORMED BY: [facility]6370 [facility] [id number] (11615) Vitamin B12 399 pg/mL (Normal) Range: 211-946 00-Esi-042320:09 METABOLIC PANEL, Comments: PATIENT WAS FASTINGPERFORMED BY: SATHISH Amedrixlin6370 [facility] [id number] Information: [id number],2ND ORDER COMPREHENSIVE (80833) ALT (SGPT) 15 [iU]/L (Normal) Range: 0-44 [...] Glucose, Serum 86 mg/dL (Normal) Range: 65-99 26-Mzr-927946:09 LIPID PANEL (38358) Comments: PATIENT WAS FASTINGPERFORMED BY: Content360Saint [facility] Hospital at DoverYsrebl0853 [facility] [id number] LDL/HDL Ratio 2.0 {ratio_units} (Normal) Range: 0.0-3.6 [...] Cholesterol, Total 132 mg/dL (Normal) Range: 100-199 9-Axx-215342:05 Microscopic Examination Comments: PATIENT NOT FASTINGPERFORMED BY: Content360Saint [facility] Hospital at DoverTakriy1533 [facility] [id number] Bacteria Few (Normal) Mucus Threads Present (Normal) Epithelial Cells (non renal) 0-10 {/hpf} (Normal) Range: 0 - 10 RBC 0-2 {/hpf} (Normal) Range: 0 - 2 WBC 6-10 {/hpf} (Abnormal) Range: 0 - 5 3-Dtu-980987:05 URINALYSIS (95717) Comments: PATIENT NOT FASTINGPERFORMED BY: Content360Saint [facility] at DoverVvppth5846 [facility] [id number] Information: [id number] Microscopic Examination See below: (Normal) Comments: Microscopic was indicated and was performed. Nitrite, Urine Negative (Normal) Urobilinogen,Semi-Qn 1.0 mg/dL (Normal) Range: 0.0-1.9 Bilirubin Negative (Normal) Occult Blood Negative (Normal) Ketones Negative (Normal) Glucose Negative (Normal) Protein Negative (Normal) WBC Esterase Trace (Abnormal) Appearance Clear (Normal) Urine-Color Yellow (Normal) pH 6.0 (Normal) Range: 5.0-7.5 Specific [place] 1.023 (Normal) Range: 1.005-1.030 :12 PSA (PROSTATE SPECIFIC Comments: PATIENT NOT FASTINGPERFORMED BY: Secret RecipeRebecca Ville 7100870 [facility] [id number] Information: [id number] ANTIGEN) (V76.44) Prostate Specific Ag, 0.5 ng/mL (Normal) Range: 0.0-4.0 Serum Comments: Mónica ECLIA methodology. .According to the [place] [employer], Serum PSA shoulddecrease and remain at undetectable levels after radicalprostatectomy. The AUA defines biochemical recurrence as an initialPSA value 0.2 ng/mL or greater followed by a subsequent confirmatoryPSA value 0.2 ng/mL or greater.Values obtained with d ifferent assay methods or kits cannot be usedinterchangeably. Results cannot be interpreted as absolute evidenceof the presence or absence of malignant disease. 43-Xai-563637:16 HgA1C , Office (67189) HgA1C , Office 5.7 % (Normal) Range: 4.6 - 7.1 17-Oqi-522414:31 Ethanol, Blood Comments: PATIENT WAS FASTINGPERFORMED BY: Content360[address] [id number] BY: [place] 7465870 [facility] [id number] Inf ormation: [id number] Ethanol 0.094 % (Normal) Comments: Verified by repeat analysis Written Authorization WAR (Normal) Comments: PATIENT WAS FASTINGPERFORMED BY: Content360[address] [id number] BY: [place] 7465870 [facility] [id number] :31 Comments: Written Authorization Received.Authorization received from PER ORIGINAL ORDER [id number] by Avelina Glez 47-Wgv-427438:37 PTT (Activated Partial Comments: PATIENT WAS FASTINGPERFORMED BY: Secret Recipe[address] [id number] BY: [address] [id number] Thromboplastin Time) (30243) aPTT 31 {sec} (Normal) Range: 24-33 Comments: This test has not been validated for monitoring unfractionated heparintherapy. aPTT-based therapeutic ranges for unfractionated heparintherapy have not been established. For general guidelines onHeparin monitoring, refer to the [facility] Directory of Services. 79-Pbw-719998:37 PT (Prothrobim Time) Comments: PATIENT WAS FASTINGPERFORMED BY: LabCoSaint Clare's Hospital at DoverLugoml2539 [facility] [id number] BY: [address] [id number] (17272) Prothrombin Time 10.9 {sec} (Normal) Range: 9.1-12.0 INR 1.0 (Normal) Range: 0.8-1.2 Comments: Reference interval is for non-anticoagulated patients. . Suggested INR therapeutic range for Vitamin K anta gonist therapy: Standard Dose (moderate intensity therapeutic range): 2.0 - 3.0 Higher intensity therapeutic range 2.5 - 3.5 7-Jem-709694:37 DRUG SCREEN (63600) Comments: PATIENT NOT FASTINGPERFORMED BY: [facility]Co[facility] JJV67[address] [facility] [id number] Information: [id number] CCU:[id number] LM Ethanol U, Rich Negative % (Normal) Phencyclidine Negative ng/mL (Normal) Opiates Negative ng/mL (Normal) Comments: Opiate test includes Codeine and Morphine only. Cannabinoid Negative ng/mL (Normal) Cocaine (Metab.) Negative ng/mL (Normal) Benzodiazepines Negative ng/mL (Normal) Barbiturate Negative ng/mL (Normal) Amphetamines, Urine Negative ng/mL (Normal) Comments: Amphetamine test includes Amphetamine and Methamphetamine. :37 T4, FREE (THYROXINE) Comments: PATIENT WAS FASTINGPERFORMED BY: LabCoSaint Clare's Hospital at DoverElmuih5655 [facility] [id number] BY: Lab[address] [id number] (05886) T4,Free(Direct) 1.14 ng/dL (Normal) Range: 0.82-1.77 :38 HgA1C , Office (94141) HgA1C , Office 5.3 % (Normal) Range: 4.6 - 7.1 :38 Blood Glucose , Office (31780) Blood Glucose , Office 87 (Normal) 02-Ayb-082988:38 HgA1C , Office (21691) HgA1C , Office 5.3 % (Normal) Range: 4.6 - 7.1 91-Pyq-614656:37 RHEUMATOID FACTOR-QUANT Comments: PATIENT WAS FASTINGPERFORMED BY: Content360[facility] HospitalXdiwee9984 [facility] [id number] BY: [address] [id number] (79336) RA Latex Turbid. 9.9 {IU/mL} (Normal) Range: 0.0-13.9 48-Cty-598181:37 CCP ANTIBODY (17754) Comments: PATIENT WAS FASTINGPERFORMED BY: Content360[place] 9147870 [facility] [id number] BY: [address] [id number] CCP Antibodies IgG/IgA 9 {units} (Normal) Range: 0-19 Comments: Negative <20 Weak positive 20 - 39 Moderate positive 40 - 59 Strong positive >59 75-Oun-042036:37 ALISON (ANTINUCLEAR ANTIBODY) Comments: PATIENT WAS FASTINGPERFORMED BY: Content360 Hxgocf3240 [facility] [id number] BY: [address] [id number] (66006) ALISON Direct Negative (Normal) 98-Con-323213:37 Creatine Kinase Total Comments: PATIENT WAS FASTINGPERFORMED BY: Content360[place] 9147870 [facility] [id number] BY: [address] [id number] (81669) Creatine Kinase,Total,Serum 199 U/L (Normal) Range: 24-204 15-Uva-621355:37 C-Reactive Protein Comments: PATIENT WAS FASTINGPERFORMED BY: Content360 Fjnsoj8190 [facility] [id number] BY: [address] [id number] (95382) C-Reactive Protein, Quant 0.9 mg/L (Normal) Range: 0.0-4.9 :37 Methymalonic Acid, Serum Comments: PATIENT WAS FASTINGPERFORMED BY: [facility] Vujbyu3519 [address] Roadblin [place] [id number] BY: [address] [id number] (49269) Methylmalonic Acid, Serum 110 nmol/L (Normal) Range: 0-378 Comments: Please note reference interval change :37 Vitamin B-12 Comments: PATIENT WAS FASTINGPERFORMED BY: [facility] Jmqjhc5037 Perry RoadDublin [place] [id number] BY: [address] [id number] (cyanocobalamin) (72214) Vitamin B12 293 pg/mL (Normal) Range: 211-946 :37 CALCIFIDIOL (66648) VIT D Comments: PATIENT WAS FASTINGPERFORMED BY: [facility] Cogegx6479 Perry RoadDublin [place] [id number] BY: [address] [id number] 25 Vitamin D, 25-Hydroxy 12.6 ng/mL (Abnormal) Range: 30.0-100.0 Comments: Vitamin D deficiency has been defined by the [place] of[place] and an Endocrine Society practice guideline as alevel of serum 25-OH vitamin D less than 20 ng/mL (1,2).The Endocrine Society went on to further define vitamin Dinsufficiency as a level between 21 and 29 ng/mL (2).1. IOM ([place] of [employer]). 2010. Dietary reference intakes for calcium and D. Cantu [place]: The National Academies Press.2. Clifton MF, Robbi NC, Ladarius GONZALES, et al. Evaluation, treatment, and prevention of vitamin D deficiency: an Endocrine Society clinical practice guideline. JCEM. 2010; 96(7):1911-30. :37 CBC with manual diff Comments: PATIENT WAS FASTINGPERFORMED BY: CB [facility] Degnaq7293 Perry RoadDublin [place] [id number] BY: Content[address] [id number] Inf ormation: [id number] (43396) Immature Grans (Abs) 0.0 {x10E3/uL} (Normal) Range: [...] 4.14-5.80 WBC 6.0 {x10E3/uL} (Normal) Range: 3.4-10.8 64-Ckv-052916:37 HEPATIC FUNCTION PANEL Comments: PATIENT WAS FASTINGPERFORMED BY: [facility]CoSaint [facility]'s Hospital at DoverKwykub3128 [facility] [id number] BY: Content360[address] [id number] (26408) Bilirubin, Direct 0.55 mg/dL (Abnormal) Range: 0.00-0.40 28-Mrx-523730:37 TSH (THYROID STIMULATING Comments: PATIENT WAS FASTINGPERFORMED BY: Content[address] [id number] BY: [address] [id number] HORMONE) (42388) TSH 0.551 {uIU/mL} (Normal) Range: 0.450-4.500 27-Yvp-630506:37 Lipid Panel (57519) Comments: PATIENT WAS FASTINGPERFORMED BY: Content360[address] [id number] BY: [address] [id number] LDL/HDL Ratio 0.8 {ratio_units} (Normal) Range: 0.0-3.6 LDL Cholesterol Calc 99 mg/dL (Normal) Range: 0-99 VLDL Cholesterol Micah 15 mg/dL (Normal) Range: 5-40 HDL Cholesterol 127 mg/dL (Normal) Comments: Results confirmed ondilution.According to ATP-III Guidelines, HDL-C >59 mg/dL is considered anegative risk factor for CHD. Triglycerides 77 mg/dL (Normal) Range: 0-149 Cholesterol, Total 241 mg/dL (Abnormal) Range: 100-199 30-Xnl-710343:37 Metabolic Panel, Comments: PATIENT WAS FASTINGPERFORMED BY: Content360[address] [id number] BY: Secret Recipe[address] [id number] Comprehensive (86478) ALT (SGPT) 61 [iU]/L (Abnormal) Range: 0-44 [...] Glucose, Serum 90 mg/dL (Normal) Range: 65-99 51-Vbv-292007:33 Ethanol, Blood Comments: PATIENT NOT FASTINGPERFORMED BY: WinBuyer Hewuwb0[address] [place] [address] [id number] BY: Secret RecipeDarrell V[place] [id number] Ethanol 0.085 % (Normal) Comments: Verified by repeat analysis 53-Lts-160889:33 Magnesium (40086) Comments: PATIENT NOT FASTINGPERFORMED BY: WinBuyer[address] [id number] BY: [address] [id number] Magnesium, Serum 1.6 mg/dL (Normal) Range: 1.6-2.6 63-Axn-923804:33 Methymalonic Acid, Serum Comments: PATIENT NOT FASTINGPERFORMED BY: WinBuyerSaint Clare's Hospital at DoverKrekqh564[address] [place] [address] [id number] BY: [address] [id number] (79895) Methylmalonic Acid, Serum 78 nmol/L (Normal) Range: 73-376 Comments: The reference range for methylmalonic acid has been set at +3sd abovethe mean for healthy blood bank donors. In the clinical assessment ofpatients with megaloblastic anemias a cutoff of +3sd provides gr eaterspecificity in the diagnosis of the vitamin deficiency states,despite the sacrifice of some sensitivity. 76-Qot-803283:33 Vitamin B-12 Comments: PATIENT NOT FASTINGPERFORMED BY: WinBuyer Bawmpt8077 [facility] [id number] BY: Secret Recipe[address] [id number] (cyanocobalamin) (77973) Vitamin B12 449 pg/mL (Normal) Range: 211-946 00-Cai-574861:33 TSH (50870) Comments: PATIENT NOT FASTINGPERFORMED BY: ACHICA LabHookit Zlctpi9834 [facility] [id number] BY: Content360[address] [id number] TSH 0.654 {uIU/mL} (Normal) Range: 0.450-4.500 15-Ctm-599447:33 METABOLIC PANEL, Comments: PATIENT NOT FASTINGPERFORMED BY: WinBuyerMorgan V[place] 9147870 [facility] [id number] BY: Secret Recipe[address] [id number] Inf ormation: [id number] COMPREHENSIVE (50528) ALT (SGPT) 88 [iU]/L (Abnormal) Range: 0-44 [...] Range: 65-99 :49 Blood Glucose , Office (17933) Blood Glucose , Office 90 (Normal) :49 HgA1C , Office (21466) HgA1C , Office 5.3 % (Normal) Range: 4.6 - 7.1 :07 MAGNESIUM (51305) Comments: PATIENT NOT FASTINGPERFORMED BY: Branching Mindslin6370 [facility] [id number] Magnesium, Serum 1.3 mg/dL (Abnormal) Range: 1.6-2.6 14-Tct-259147:07 PSA (PROSTATE SPECIFIC Comments: PATIENT NOT FASTINGPERFORMED BY: CodeSealer Lktvhg3920 [facility] [id number] ANTIGEN) (37397) Prostate Specific Ag, 0.8 ng/mL (Normal) Range: 0.0-4.0 Serum Comments: Mónica ECLIA methodology. .According to the [place] [employer], Serum PSA shoulddecrease and remain at undetectable levels after radicalprostatectomy. The AUA defines biochemical recurrence as an initialPSA value 0.2 ng/mL or greater followed by a subsequent confirmatoryPSA value 0.2 ng/mL or greater.Values obtained with d ifferent assay methods or kits cannot be usedinterchangeably. Results cannot be interpreted as absolute evidenceof the presence or absence of malignant disease. 66-Wfh-107119:07 Metabolic Panel, Comments: PATIENT NOT FASTINGPERFORMED BY: SATHISH [facility] Xzeucu9[address] [place] [place] [id number] Information: ADD [id number] AND DRAW FEE 99 3160 Comprehensive (80499) ALT (SGPT) 74 [iU]/L (Abnormal) Range: 0-44 [...] Glucose, Serum 98 mg/dL (Normal) Range: 65-99 18-Hgj-58524:00 Urinalysis, Office (83850) UA - BILIRUBIN Negative (Normal) UA - BLOOD Non Hemolyzed Trace (Normal) UA - GLUCOSE Negative (Normal) UA - KETONES Negative mg/dL (Normal) UA - LEUKOCYTE ESTERASE Negative (Normal) UA - NITRITE Negative (Normal) UA - PH 7.0 (Normal) UA - PROTEIN Negative mg/dL (Normal) UA - SPECIFIC GRAVITY 1.015 (Normal) URINE UROBILINGN RICH TIMED Normal mg/dL (Normal) 31-Slu-822257:32 Potassium Serum (90795) Comments: PATIENT NOT FASTINGPERFORMED BY: Secret RecipeRebecca [place] 7100870 [facility] [id number] Information: [id number] Potassium, Serum 4.0 mmol/L (Normal) Range: 3.5-5.2 81-Vjx-200774:32 Magnesium (29368) Comments: PATIENT NOT FASTINGPERFORMED BY: Secret RecipeRebecca [place] 7100870 [facility] [id number] Magnesium, Serum 1.7 mg/dL (Normal) Range: 1.6-2.6 Magnesium, Serum 1.4 mg/dL Comments: PATIENT WAS FASTINGPERFORMED BY: Secret RecipeRebecca [place] 7100870 [facility] [id number] :32 (Abnormal) Range: 1.6-2.6 Written Authorization WAR (Normal) Comments: PATIENT WAS FASTINGPERFORMED BY: Secret RecipeRebecca [place] 7100870 [facility] [id number] :32 Comments: Written Authorization Received.Authorization received from JEWELL HADLEY [id number] by Kenisha Lozano :32 Metabolic Panel, Basic Comments: PATIENT WAS FASTINGPERFORMED BY: LabRebecca V[place] 7100870 [facility] [id number] BY: [place] 130627 [facility] [id number] (32684) Calcium, Serum 9.1 mg/dL (Normal) Range: 8.6-10.2 [...] FUNCTION PANEL Comments: PATIENT WAS FASTINGPERFORMED BY: [employer] [facility] [id number] BY: Content[address] [id number] (16559) ALT (SGPT) 72 [iU]/L (Abnormal) Range: 0-55 AST (SGOT) 88 [iU]/L (Abnormal) Range: 0-40 Alkaline Phosphatase, S 74 [iU]/L (Normal) Range: 25-160 Bilirubin, Direct 0.57 mg/dL (Abnormal) Range: 0.00-0.40 Bilirubin, Total 1.3 mg/dL (Abnormal) Range: 0.0-1.2 Albumin, Serum 4.5 g/dL (Normal) Range: 3.6-4.8 Protein, Total, Serum 7.1 g/dL (Normal) Range: 6.0-8.5 :32 CALCIFIDIOL (56122) VIT D Comments: PATIENT WAS FASTINGPERFORMED BY: Branching Mindslin6370 [facility] [id number] BY: Content[address] [id number] 25 Vitamin D, 25-Hydroxy 39.6 ng/mL (Normal) Range: 30.0-100.0 Comments: Vitamin D deficiency has been defined by the [place] of[place] and an Endocrine Society practice guideline as alevel of serum 25-OH vitamin D less than 20 ng/mL (1,2).The Endocrine Society went on to further define vitamin Dinsufficiency as a level between 21 and 29 ng/mL (2).1. IOM ([place] of [place]). 2010. Dietary reference intakes for calcium and D. Cantu [place]: The National Academies Press.2. Clifton MF, Robbi MADRID, Ladarius GONZALES, et al. Evaluation, treatment, and prevention of vitamin D deficiency: an Endocrine Society clinical practice guideline. JCEM. 2010; 96(7):1911-30. :32 Vitamin B-12 (cyanocobalamin) Comments: PATIENT WAS FASTINGPERFORMED BY: [facility] Wmbnni7637 [facility] [id number] BY: [address] [id number] (71156) Vitamin B12 557 pg/mL (Normal) Range: 211-946 :32 TSH (26077) Comments: PATIENT WAS FASTINGPERFORMED BY: [facility] Tkholb7057 [address] [facility] [id number] BY: [address] [id number] TSH 0.507 {uIU/mL} (Normal) Range: 0.450-4.500 :32 T4, FREE (THYROXINE) Comments: PATIENT WAS FASTINGPERFORMED BY: LabHookit Njrbgs6005 [facility] [id number] BY: [address] [id number] (15849) T4,Free(Direct) 1.07 ng/dL (Normal) Range: 0.82-1.77 :32 T3, FREE (TRIDOTHYRONINE) Comments: PATIENT WAS FASTINGPERFORMED BY: [facility] Frtuxc8370 [facility] [id number] BY: [address] [id number] (64927) Triiodothyronine,Free,Serum 3.4 pg/mL (Normal) Range: 2.0-4.4 :32 Ethanol, Blood Comments: PATIENT WAS FASTINGPERFORMED BY: [facility] Ydvedg2115 [facility] [id number] BY: ANNA [facility] Xxuehzsdop5282 [facility] [id number] Ethanol 0.025 % (Normal) Comments: Verified by repeat analysis 04-Apr-20128:30 THYROID IMAGE W/[facility] Radiology Report See Note (Normal) [...] EDTElectronically Signed RB/RB Professional Interpretation Provided By: [facility], , To consult with a radiologist regarding this report, please call our 07S3yheofwe line @ Dictated on 04/04/12951 by Jeffrey Fatima DOTranscribed on 04/05/122125 by ITS IMPORTSign by Jeffrey Acosta DO on 04/05/122126 Sign by: Jeffrey Fatima DO 04-Ozm-967053:50 TSH (24194) Comments: PATIENT NOT FASTINGPERFORMED BY: LabCoSaint [facility]'s Hospital at DoverHzbwwa6967 [facility] [id number] TSH 0.337 {uIU/mL} (Abnormal) Range: 0.450-4.500 :50 T4, FREE (THYROXINE) (18866) Comments: PATIENT NOT FASTINGPERFORMED BY: [facility] Finxuj2030 [address] [facility] [place] [id number] T4,Free(Direct) 1.14 ng/dL (Normal) Range: 0.82-1.77 :50 T3, FREE (TRIDOTHYRONINE) (85290) Comments: PATIENT NOT FASTINGPERFORMED BY: [facility]6370 [facility] [id number] Triiodothyronine,Free,Serum 3.2 pg/mL (Normal) Range: 2.0-4.4 :50 CALCIFIDIOL (64483) VIT D 25 Comments: PATIENT NOT FASTINGPERFORMED BY: [facility]6370 [facility] [id number] Vitamin D, 25-Hydroxy 57.3 ng/mL (Normal) Range: 30.0-100.0 Comments: Vitamin D deficiency has been defined by the [place] of[place] and an Endocrine Society practice guideline as alevel of serum 25-OH vitamin D less than 20 ng/mL (1,2).The Endocrine Society went on to further define vitamin Dinsufficiency as a level between 21 and 29 ng/mL (2).1. IOM ([place] of [place]). 2010. Dietary reference intakes for calcium and D. Cantu [place]: The National Academies Press.2. Clifton MF, Robbi MADRID, Ladarius GONZALES, et al. Evaluation, treatment, and prevention of vitamin D deficiency: an Endocrine Society clinical practice guideline. JCEM. 2010; 96(7):1911-30. :50 HEPATIC FUNCTION PANEL Comments: PATIENT NOT FASTINGPERFORMED BY: [facility] Jwijnv6333 [facility] [id number] Information: [id number] (51082) ALT (SGPT) 76 [iU]/L (Abnormal) Range: 0-55 Alkaline Phosphatase, S 77 [iU]/L (Normal) Range: 25-160 AST (SGOT) 88 [iU]/L (Abnormal) Range: 0-40 Bilirubin, Direct 0.52 mg/dL Range: 0.00-0.40 (Abnormal) Bilirubin, Total 1.3 mg/dL (Abnormal) Range: 0.0-1.2 Albumin, Serum 4.7 g/dL (Normal) Range: 3.6-4.8 Protein, Total, Serum 7.2 g/dL (Normal) Range: 6.0-8.5 11-Feb-2012 Vitamin D, 25-Hydroxy 5.2 ng/mL (Abnormal) Comments: PERFORMED BY: [facility] [id number] 12:13 Range: 30.0-100.0 Comments: Vitamin D deficiency has been defined by the [place] of[place] and an Endocrine Society practice guideline as alevel of serum 25-OH vitamin D less than 20 ng/mL (1,2).The Endocrine Society went on to further define vitamin Dinsufficiency as a level between 21 and 29 ng/mL (2).1. IOM ([place] of [place]). 2010. Dietary reference intakes for [...] Mitochondrial (M2) <20.0 {Units} Comments: PERFORMED BY: Ohmconnect6370 [facility] [id number] 12:13 Antibody (Normal) Range: 0.0-20.0 Comments: Negative 0.0 - 20.0 Equivocal 20.1 - 24.9 Positive >24.9 . Mitochondrial (M2) Antibodies are found in 90-96% of patients with primary biliary cirrhosis. 11-Feb-2012 Actin (Smooth Muscle) 8 {Units} (Normal) Comments: PERFORMED BY: [facility] [id number] 12:13 Antibody Range: 0-19 Comments: Negative 0 - 19 Weak positive 20 - 30 Moderate to strong positive >30 . Actin Antibodies are found in 52-85% of patients with autoimmune hepatitis or chronic active hepatitis and in 22% of patients with primary biliary cirrhosis. 11-Feb-2012 Ferritin, Serum 364 ng/mL (Normal) Comments: PERFORMED BY: Content360Saint [facility] Hospital at DoverAxsuxa3422 [facility] [id number] 12:13 Range: 30-400 09-Peb-017964:13 Antinuclear Antibodies Direct Comments: PERFORMED BY: Content360 Qcrvvh1423 [facility] [id number] ALISON Direct Negative (Normal) 52-Fip-519617:13 Hepatic Function Panel (7) Comments: PERFORMED BY: Content360 Yicpbf0956 [facility] [id number] ALT (SGPT) 62 [iU]/L (Abnormal) Range: 0-55 Alkaline Phosphatase, S 82 [iU]/L (Normal) Range: 25-160 AST (SGOT) 106 [iU]/L (Abnormal) Range: 0-40 Bilirubin, Direct 0.44 mg/dL (Abnormal) Range: 0.00-0.40 Bilirubin, Total 0.9 mg/dL (Normal) Range: 0.0-1.2 Albumin, Serum 4.5 g/dL (Normal) Range: 3.6-4.8 Protein, Total, Serum 7.3 g/dL (Normal) Range: 6.0-8.5 46-Xxs-643767:13 Thyroxine (T4) Free, Direct, Comments: PERFORMED BY: Content360Saint [facility] Hospital at DoverGqgptx9060 [facility] [id number] S T4,Free(Direct) 1.10 ng/dL Range: 0.82-1.77 (Normal) 11-Feb-2012 Triiodothyronine,Free,Seru 3.4 pg/mL (Normal) Comments: PERFORMED BY: Secret RecipeOaklawn Hospital6370 [facility] [id number] 12:13 m Range: 2.0-4.4 11-Feb-2012 TSH 0.371 {uIU/mL} Comments: PERFORMED BY: [facility]6370 [facility] [id number] 12:13 (Abnormal) Range: 0.450-4.500 06-Yqn-233021:04 Thyroxine (T4) Free, Comments: PATIENT WAS FASTINGPERFORMED BY: [facility]6370 [facility] [id number] Information: [id number] Direct, S T4,Free(Direct) 1.25 ng/dL Range: 0.82-1.77 (Normal) 07-Dec-2011 Triiodothyronine,Free,Seru 3.1 pg/mL (Normal) Comments: PATIENT WAS FASTINGPERFORMED BY: [facility]6370 [facility] [id number] 13:04 m Range: 2.0-4.4 07-Dec-2011 Written Authorization WAR (Normal) Comments: PATIENT WAS FASTINGPERFORMED BY: [facility]6370 [facility] [id number] 13:04 Comments: Written Authorization Received.Authorization received from JEWELL HADLEY [id number] by Margaret Zuniga 86-Dbz-602770:04 TSH (34669) Comments: PATIENT WAS FASTINGPERFORMED BY: [facility]6370 [facility] [id number] TSH 0.290 {uIU/mL} (Abnormal) Range: 0.450-4.500 65-Xoc-877096:04 CALCIFIDIOL (05535) VIT D 25 Comments: PATIENT WAS FASTINGPERFORMED BY: [facility]6370 [facility] [id number] Vitamin D, 25-Hydroxy 7.2 ng/mL (Abnormal) Range: 30.0-100.0 Comments: Vitamin D deficiency has been defined by the [place] of[place] and an Endocrine Society practice guideline as alevel of serum 25-OH vitamin D less than 20 ng/mL (1,2).The Endocrine Society went on to further define vitamin Dinsufficiency as a level between 21 and 29 ng/mL (2).1. IOM ([place] of [place]). 2011. Dietary reference intakes for calcium and D. Cantu [place]: The National Academies Press.2. Clifton MF, Robbi MADRID, Ladarius GONZALES, et al. Evaluation, treatment, and prevention of vitamin D deficiency: an Endocrine Society clinical practice guideline. JCEM. 2010; 96(7):1911-30. 66-Jdp-058312:04 Vitamin B-12 (cyanocobalamin) Comments: PATIENT WAS FASTINGPERFORMED BY: [facility] Zjoete0955 [facility] [id number] (28064) Vitamin B12 920 pg/mL (Normal) Range: 211-946 36-Ojt-929597:04 METABOLIC PANEL, COMPREHENSIVE Comments: PATIENT WAS FASTINGPERFORMED BY: [facility] Grhnyg9502 [facility] [id number] (57210) ALT (SGPT) 101 [iU]/L (Abnormal) Range: 0-55 [...] Glucose, Serum 85 mg/dL (Normal) Range: 65-99 96-Obf-465640:04 LIPID PANEL (59586) Comments: PATIENT WAS FASTINGPERFORMED BY: CAD Best70 [facility] [id number] LDL Cholesterol Calc 79 mg/dL (Normal) Range: 0-99 LDL/HDL Ratio 0.5 {ratio_units} (Normal) Range: 0.0-3.6 VLDL Cholesterol Micah 11 mg/dL (Normal) Range: 5-40 HDL Cholesterol 156 mg/dL (Normal) Comments: Results confirmed ondilution.According to ATP-III Guidelines, HDL-C >59 mg/dL is considered anegative risk factor for CHD. Triglycerides 57 mg/dL (Normal) Range: 0-149 Cholesterol, Total 246 mg/dL (Abnormal) Range: 100-199 87-Mwq-181119:04 CBC WITH MANUAL DIFF Comments: PATIENT WAS FASTINGPERFORMED BY: CodeSealer Eokqdt6988 [facility] [id number] Information: [id number] (96141) Immature Grans (Abs) 0.0 {x10E3/uL} (Normal) Range: [...] 4.10-5.60 WBC 5.7 {x10E3/uL} (Normal) Range: 4.0-10.5 08-Dup-78459:56 BRAIN/HEAD W/WO CONTRAST Radiology Report See Note [...] scan of the brain. Dictated on 05/27/11 18 by Yasmeen ALBARADO,GabrieleTranscribed on 05/27/11 1332 by ITS IMPORTSign by Maxi Arana MD on 1333 Sign by: Maxi Arana MD 06-Zbg-66164:00 LIVER Radiology Report See Note (Normal) Comments: [...] size of the right kidney. The right llvnljhvrlbbiz06.4 cm. Normal renal cortex. The right cortex measures 1.7 cm. Thereisno de monstrated renal mass or cyst. There are no demonstrated renalcalculi. There is no hydronephrosis. There is no ascites. IMPRESSION:Normal abdominal ultrasound examination. Dictated on 04/21/11 082 9 by Va Arana MDranscribed on 04/21/11 1107 by ITS IMPORTSign by Maxi Arana MD on 04/21/11 1108 Sign by: Maxi Arana MD 63-Urf-26563:16 HEPATIC FUNCTION PANEL Comments: PATIENT NOT FASTINGPERFORMED BY: LabCoSaint Clare's Hospital at DoverFhkqmq3119 [facility] [id number] Information: [id number] (32183) Alkaline Phosphatase, S 69 [iU]/L (Normal) Range: 25-160 ALT (SGPT) 142 [iU]/L (Abnormal) Range: 0-55 AST (SGOT) 171 [iU]/L (Abnormal) Range: 0-40 Bilirubin, Direct 0.43 mg/dL (Abnormal) Range: 0.00-0.40 Bilirubin, Total 0.8 mg/dL (Normal) Range: 0.0-1.2 Albumin, Serum 4.7 g/dL (Normal) Range: 3.6-4.8 Protein, Total, Serum 7.2 g/dL (Normal) Range: 6.0-8.5 :16 HEPATITIS PANEL (47184) Comments: PATIENT NOT FASTINGPERFORMED BY: Content360[address] [id number] Hep C Virus Ab <0.1 {s/co_ratio} (Normal) [...] (Normal) Hep A Ab, IgM Negative (Normal) 53-Njr-272356:05 CBC With Differential/Platelet Comments: PATIENT WAS FASTINGPERFORMED BY: Content360[address] [id number] BY: [address] [id number] Immature Grans (Abs) 0.0 {x10E3/uL} (Normal) Range: [...] 4.10-5.60 WBC 7.7 {x10E3/uL} (Normal) Range: 4.0-10.5 29-Ref-086440:05 Comp. Metabolic Panel Comments: PATIENT WAS FASTINGPERFORMED BY: CB [facility] [address] [id number] BY: BN [facility] [address] [id number] (14) Alkaline Phosphatase, S 74 [iU]/L (Normal) [...] % (Normal) Comments: PATIENT WAS FASTINGPERFORMED BY: [employer] [facility] [id number] BY: Content[address] [id number] 3:05 Range: 4.8-5.6 Comments: Increased risk for diabetes: 5.7 - 6.4 Diabetes: >6.4 Glycemic control for adults with diabetes: <7.0 46-Dax-579819:05 Lipid Panel With LDL/HDL Comments: PATIENT WAS FASTINGPERFORMED BY: CAD Best70 [facility] [id number] BY: Content360[address] [id number] Ratio LDL Cholesterol Calc 89 mg/dL (Normal) Range: 0-99 LDL/HDL Ratio 0.7 {ratio_units} (Normal) Range: 0.0-3.6 VLDL Cholesterol Micah 18 mg/dL (Normal) Range: 5-40 Cholesterol, Total 241 mg/dL (Abnormal) Range: 100-199 HDL Cholesterol 134 mg/dL (Normal) Comments: Results confirmed ondilution.According to ATP-III Guidelines, HDL-C >59 mg/dL is considered anegative risk factor for CHD. Triglycerides 92 mg/dL (Normal) Range: 0-149 :05 Panel [id number] Comments: PATIENT WAS FASTINGPERFORMED BY: Win[employer]er Jamalon [facility] [id number] BY: [address] [id number] HIV 1/O/2 Abs, Non Reactive Qual (Normal) HIV 1/O/2 <1.00 (Normal) Comments: Index Value: Specimen reactivity relative to the negative cutoff. Abs-Index Value : TSH 0.699 {uIU/mL} Comments: PATIENT WAS FASTINGPERFORMED BY: [employer] [facility] [id number] BY: [address] [id number] 05 (Normal) Range: 0.450-4.500 :05 Vitamin B1 (Thiamine), Comments: PATIENT WAS FASTINGPERFORMED BY: Win[employer]er Aaefxh9101 [facility] [id number] BY: [address] [id number] Blood Vit. B1, Whole Blood 150.6 nmol/L Range: 66.5-200.0 (Normal) Vitamin B12 >1999 pg/mL Comments: PATIENT WAS FASTINGPERFORMED BY: [employer]er Bprpvw2258 [facility] [id number] BY: [address] [id number] :05 (Abnormal) Range: 211-946 99-Ujh-41895:10 CBCD,SMEAR DIFF BAND 2 % (Normal) Range: [...] 11.6-14.6 WBC 5.0 K/mm3 (Normal) Range: 4.4-11.0 05-Ygs-29206:10 COMP METABOLIC ALK P 72 U/L (Normal) [...] CHOL 200 mg/dL (Normal) Comments: <200 mg/dL Vawlelbcx784-139 mg/dL Borderline>240 mg/dL High Risk HDL 87 [...] Range: 0.358-3.74 0 (Normal) :1 VIT D,25 02006 20.5 ng/mL (Abnormal) Range: 32.0-100.0 0 Comments: Recent studies consider the lower limit of 32.0 ng/mL to nati threshold for optimal health.Edwin ESPINOZA. J Nutr. 2004;135(2):317-22.Performed at: [place] [address] Director: Adrienne Gil MD, Phone: [phone] :1 VITAMIN B12 1239 pg/mL (Normal) Range: 254-1320 0 Comments: There is a low frequency possibility that high titers ofintrinsic blocking antibodies may not be completelyinactivated during the reaction pretreatment stepof this testing method. If test results are in conflictwith the clinical diagnosis, patient should be testedfor the presence of intrinsic factor blocking antibodies. 70-Ddb-232580:24 Urinalysis, Office (31546) UA - LEUKOCYTE Negative (Normal) ESTERASE UA [...] {units} (Normal) Comments: PATIENT WAS FASTINGPERFORMED BY: [address] [id number] Range: 0-19 Comments: Negative <20 Weak positive 20 - 39 Moderate positive 40 - 59 Strong positive >59 : Comment: SPRCS (Normal) Comments: PATIENT WAS FASTINGPERFORMED BY: [address] [id number] 29 Comments: Effective August 25, 2009 order code 157051 CCP IgGAntibodies has been replaced due to an updated reagentversion 3.1. For this reason [facility] has provided youwith a new order code 511349 CCP Antibodies IgG/IgA. :29 PSA (PROSTATE SPECIFIC Comments: PATIENT WAS FASTINGPERFORMED BY: [address] [id number] ANTIGEN) (V76.44) Prostate Specific Ag, 1.0 ng/mL (Normal) Range: 0.0-4.0 Serum Comments: Mónica ECLIA methodology. .According to the [place] [employer], Serum PSA shoulddecrease and remain at undetectable levels after radicalprostatectomy. The AUA defines biochemical recurrence as an initialPSA value 0.2 ng/mL or greater followed by a subsequent confirmatoryPSA value 0.2 ng/mL or greater.Values obtained with d ifferent assay methods or kits cannot be usedinterchangeably. Results cannot be interpreted as absolute evidenceof the presence or absence of malignant disease. :29 LIPID PANEL (49124) Comments: PATIENT WAS FASTINGPERFORMED BY: [address] [id number] Cholesterol, Total 240 mg/dL (Abnormal) Range: 100-199 HDL Cholesterol 85 mg/dL (Normal) Comments: According to ATP-III Guidelines, HDL-C >59 mg/dL is considered anegative risk factor for CHD. LDL Cholesterol Calc 142 mg/dL (Abnormal) Range: 0-99 LDL/HDL Ratio 1.7 {ratio_units} (Normal) Range: 0.0-3.6 Triglycerides 63 mg/dL (Normal) Range: 0-149 VLDL Cholesterol Micah 13 mg/dL (Normal) Range: 5-40 :29 C-REACTIVE PROTEIN (87015) Comments: PATIENT WAS FASTINGPERFORMED BY: Content[address] [id number] C-Reactive Protein, Quant 0.8 mg/L (Normal) Range: 0.0-4.9 :29 SED RATE ERYTHROCYTE (40479) Comments: PATIENT WAS FASTINGPERFORMED BY: Content[address] [id number] Sedimentation Rate-Westergren 2 mm/h (Normal) Range: 0-20 :29 ALISON (ANTINUCLEAR ANTIBODY) Comments: PATIENT WAS FASTINGPERFORMED BY: [facility] [id number] (95782) ALISON Direct Negative (Normal) :29 CBC WITH MANUAL DIFF (55446) Comments: PATIENT WAS FASTINGClinical Information: 508604,[id number] PERFORMED BY: [facility] [id number] Baso (Absolute) 0.1 {x10E3/uL} (Normal) Range: 0.0-0.2 [...] PANEL, COMPREHENSIVE Comments: PATIENT WAS FASTINGPERFORMED BY: [facility] [id number] (14050) A/G Ratio 1.5 (Normal) Range: 1.1-2.5 Albumin, [...] mmol/L (Normal) Range: 135-145 :29 RHEUMATOID FACTOR-QUANT (54782) Comments: PATIENT WAS FASTINGPERFORMED BY: [facility] [address] [id number] RA Latex Turbid. 8.4 {IU/mL} (Normal) Range: 0.0-13.9 :29 TSH (50602) Comments: PATIENT WAS FASTINGPERFORMED BY: [facility] [address] [id number] TSH 0.661 {uIU/mL} (Normal) Range: 0.450-4.500 37-Zie-500127:30 RIBS,UNI,MIN 3V,W/PA CHEST(MT) Radiology Report See Note (Normal) Comments: Exam Number: [id number] FRONTAL CHEST AND LEFT RIBS CLINICAL HISTORY [...] (PROSTATE SPECIFIC Comments: PATIENT NOT FASTINGPERFORMED BY: Content[address] [id number] ANTIGEN) (V76.44) Prostate Specific Ag, Serum 1.6 ng/mL (Normal) Range: 0.0-4.0 Comments: Intel[employer]IA methodology. .According to the [place] [employer], PSA should beundetectable after radical prostatectomy. A PSA of less than0.5 ng/mL (or undetectable) is not likely to be associated withdisease recurrence within five years of treatment.Values obtained with different assay methods or kits cannot be usedinterchang eably. Results cannot be interpreted as absolute evidenceof the presence or absence of malignant disease. :47 TSH (51036) Comments: PATIENT NOT FASTINGPERFORMED BY: uTaP [address] [id number] TSH 0.463 {uIU/mL} (Normal) Range: 0.450-4.500 :47 CBC (Auto) (39933) Comments: PATIENT NOT FASTINGPERFORMED BY: Content[address] [id number] Hematocrit 47.6 % (Normal) Range: 36.0-50.0 Hemoglobin [...] PATIENT NOT FASTINGClinical Information: ADD DRAW FEE 223641 ADD J 23955 PERFORMED BY: uTaP [address] [id number] (08540) A/G Ratio 1.4 (Normal) Range: 1.1-2.5 Albumin, [...] mmol/L (Normal) Range: 135-145 :47 Lipid Panel (89705) Comments: PATIENT NOT FASTINGPERFORMED BY: [facility] [id number] Cholesterol, Total 199 mg/dL (Normal) Range: 100-199 [...] (Normal) Range: 5-40 :47 Methylmalonic acid, serum 00052 Comments: PATIENT NOT FASTINGPERFORMED BY: [employer] [address] [id number] Methylmalonic Acid, Serum 225 nmol/L (Normal) Range: [...] B-12 (cyanocobalamin) Comments: PATIENT NOT FASTINGPERFORMED BY: [employer] [address] [id number] (13654) Vitamin B12 256 pg/mL (Normal) Range: 211-911 56-Pmb-780111:30 Metabolic Panel, Basic Comments: PATIENT NOT FASTINGClinical Information: ADD DRAW FEE 580388 ADD J 53063 PERFORMED BY: [facility]360[facility]Wgecek79[facility] [id number] (30677) BUN 13 mg/dL (Normal) Range: 5-26 BUN/Creatinine [...] on 'Glom Filt Rate, Est' and 'If -Faroese' will be changing to >59 mL/min/1.73. Glucose, Serum 86 mg/dL (Normal) Range: 65-99 If -Faroese >59 mL/min/1.73 Range: 60-137 (Normal) Comments: Note: [...] 3.5-5.1 NA 136 mmol/L (Normal) Range: 136-145 55-Pwy-36177:01 CBCD BASO% 0.5 % (Normal) Range: 0-1 [...] Report See Note (Normal) Comments: Exam Number: [id number] PA AND LATERAL CHEST HISTORY Being done [...] (PROSTATE SPECIFIC Comments: PATIENT WAS FASTINGPERFORMED BY: [employer] Xjgjpw5128 [facility] [id number] ANTIGEN) Prostate-Specific Ag, Serum 0.5 ng/mL (Normal) Range: 0.0-4.0 Comments: Cathie (formerly [employer] [facility] methodology :28 Vitamin B-12 (cyanocobalamin) Comments: PATIENT WAS FASTINGPERFORMED BY: [employer] Ocbpue6710 [facility] VideoFormerly [facility] [id number] (19997) Vitamin B12 283 pg/mL (Normal) Range: 211-911 05-Pqg-35410:28 C-REACTIVE PROTEIN (44292) Comments: PATIENT WAS FASTINGPERFORMED BY: [employer] Gwaxrq6721 [facility] [id number] C-Reactive Protein, Quant 0.6 mg/L (Normal) Range: 0.0-4.9 :28 SED RATE ERYTHROCYTE (84921) Comments: PATIENT WAS FASTINGPERFORMED BY: [place] [id number] [facility] [id number] Sedimentation Rate-Westergren 2 mm/h (Normal) Range: 0-20 :28 RHEUMATOID FACTOR-QUANT (35805) Comments: PATIENT WAS FASTINGPERFORMED BY: [address] [id number] RA Latex Turbid. 5.2 {IU/mL} (Normal) Range: 0.0-13.9 :28 TSH (12239) Comments: PATIENT WAS FASTINGPERFORMED BY: [address] [id number] TSH 0.436 {uIU/mL} (Normal) Range: 0.350-5.500 :28 ALISON (ANTINUCLEAR ANTIBODY) Comments: PATIENT WAS FASTINGPERFORMED BY: [address] [id number] (52075) Antinuclear Antibodies Direct 23 AU/mL (Normal) Range: 0-99 Comments: Negative <100 Equivocal 100 - 120 Positive >120 : CBC WITH MANUAL DIFF (65832) Comments: PATIENT WAS FASTINGClinical Information: ADD DRAW FEE 127401 ADD J 29718 PERFORMED BY: [address] [id number] Baso (Absolute) 0.0 {x10E3/uL} (Normal) Range: 0.0-0.2 [...] 11.7-15.0 WBC 5.8 {x10E3/uL} (Normal) Range: 4.0-10.5 64-Htd-18177:28 METABOLIC PANEL, COMPREHENSIVE Comments: PATIENT WAS FASTINGPERFORMED BY: [facility]CoSaint [facility] Hospital at DoverCuuzly5812 [facility] [id number] (81512) A/G Ratio 1.6 (Normal) Range: 1.1-2.5 Albumin, [...] Report See Note (Normal) Comments: Exam Number: [id number] 2 VIEWS OF CHEST PA and lateral views of the chest are [facility]. There is mild cardiomegaly. There is tortuosityof the aorta. There is n o acute infiltrate, area of consolidation,pleural effusion or vascular congestion identified. Bony structuresare grossly intact. IMPRESSIONNo acute pulmonary abnormality is identified. Reported By: SANJIV MCCOLLUM M.D. : VIT B12 1503 170 pg/mL (Abnormal) Range: 211-911 51 Comments: Performed At: [address] [id number] :19 CBC HCT 46.1 % (Normal) Range: [...] was performed using the TPSA method for theDimensiCocodot chemistry system.Values obtained with different assay methods [...] pg/mL (Abnormal) Range: 211-911 Comments: Performed At: [address] [id number] Plan of Care Name Dates Details Instructions [...] : Follow up in 2 weeks with [facility] Indication: Smoker Smoker : Follow up [...] Planned Observations CBC, Platelets & Auto Diff (98154)Indication: Testosterone deficiency On: : Request Comments: to be done March 2017 HEPATIC FUNCTION PANEL (80833)Indication: Testosterone deficiency On: : Request Comments: to be done March 2017 Metabolic Panel, Comprehensive (52025)Indication: Testosterone deficiency On: : Request Comments: to be done in March 2017 MICROALBUMIN: CREATININE RATIO (13138) AND (75334)Indication: Hypertension On: 75-Vzc-379738:04 Request URINALYSIS (75430)Indication: Hypertension On: 47-Emm-767219:02 Request Urinalysis, Office (28474)Indication: Preop examination On: 40-Xpn-591352:45 Request HgA1C , Office (90676)Indication: Impaired fasting glucose On: 12-Bir-129194:59 Request MICROALBUMIN: CREATININE RATIO (16540) AND (48745)Indication: Hypertension On: 01-Dec-20158:35 Request Urinalysis, Office (62221)Indication: Abdominal wall pain On: 90-Iyt-002543:30 Request Vitamin B-12 (cyanocobalamin) (42968)Indication: B12 deficiency On: :37 Request CALCIFIDIOL (72832) VIT D 25Indication: Vitamin D deficiency, unspecified On: :37 Request METABOLIC PANEL, COMPREHENSIVE (56503)Indication: Hypertension On: :37 Request LIPID PANEL (90985)Indication: Hypertension On: :37 Request CBC with auto diff (07961)Indication: Hypertension On: :37 Request CALCIFEDIOL (98790)Indication: Vitamin D deficiency, unspecified On: 46-Ajz-805547:58 Request HgA1C , Office (59279)Indication: Impaired fasting glucose On: :21 Request Blood Glucose , Office (58505)Indication: Impaired fasting glucose On: :21 Request METABOLIC PANEL, COMPREHENSIVE (21072)Indication: Hypertension On: 79-Wwk-536982:15 Request LIPID PANEL (22343)Indication: Hypertension On: 18-Zvt-121074:15 Request CALCIFEDIOL (43084)Indication: Vitamin D deficiency, unspecified On: 8-Cff-914711:46 Request ALCOHOL, ETHYL (BLOOD) (16831)Indication: Alcohol abuse, continuous drinking behavior On: 78-Htw-532007:45 Request ALCOHOL, ETHYL (BLOOD) (80971)Indication: Other and unspecified alcohol dependence, unspecified drinking behavior On: 95-Zoi-295671:19 Request CALCIUM SERUM (25142)Indication: Dysuria On: 49-Ged-61327:42 Request Potassium Serum (49010)Indication: Hypopotassemia On: 75-Ssl-353384:36 Request Comments: recheck in 2 weeks Magnesium (84740)Indication: Hypopotassemia On: 68-Alq-662196:36 Request Comments: re check in 2 weeks MAGNESIUM (56993)Indication: Other symptoms and signs involving general sensations and perceptions On: 9-Qdx-525641:19 Request Potassium Serum (81554)Indication: Hypopotassemia On: 0-Mpa-335990:29 Request Magnesium (01099)Indication: Hypopotassemia On: 0-Wlk-424124:29 Request Phosphorus (93170)Indication: Hypopotassemia On: 1-Naw-019064:29 Request Metabolic Panel, Basic (59790)Indication: Hypopotassemia On: 4-Cnp-162753:19 Request TSH (06583)Indication: Abnormal TSH On: 75-Dbr-994257:45 Request ASM (ANTI SMOOTH MUSCLE ANTIBODY) (95949)Indication: Elevated LFTs On: 03-Pyj-277514:05 Request CALCIFIDIOL (96460) VIT D 25Indication: Vitamin D deficiency, unspecified On: 19-Fkb-354428:01 Request Metabolic Panel, Comprehensive (32331)Indication: Hypertension On: 89-Rae-424367:47 Request Drug Screen (Urine 6-Panel) (47962)Indication: Other and unspecified alcohol dependence, unspecified drinking behavior On: 31-Mmq-962022:25 Request THIAMINE (B-1) (95790)Indication: Other and unspecified alcohol dependence, unspecified drinking behavior On: 60-Qiv-199410:24 Request CBC (Auto) (09803)Indication: Fatigue On: :22 Request Lipid Panel (41171)Indication: Hypertension On: :22 Request Metabolic Panel, Comprehensive (16080)Indication: Fatigue On: :22 Request TSH (34409)Indication: Anxiety On: :22 Request Vitamin B-12 (cyanocobalamin) (00567)Indication: B12 deficiency On: : Request Hemoglobin Glyclated (HGB A1C) (64871)Indication: Candidiasis, mouth On: : Request HIV-1 ANTIBODY (60121)Indication: Candidiasis, mouth On: : Request Vitamin B-12 (cyanocobalamin) (62380)Indication: B12 deficiency On: :26 Request Metabolic Panel, Comprehensive (72592)Indication: Impaired fasting glucose On: :26 Request CALCIFEDIOL (05256)Indication: Vitamin D deficiency, unspecified On: :25 Request METABOLIC PANEL, COMPREHENSIVE (08613)Indication: Hypertension On: 34-Wpw-967023:20 Request LIPID PANEL (94922)Indication: Hypertension On: 94-Zoz-631331:20 Request CBC WITH MANUAL DIFF (04768)Indication: Hypertension On: 59-Joy-570198:20 Request Vitamin B-12 (cyanocobalamin) (75244)Indication: B12 deficiency On: 77-Wkx-166674:20 Request CALCIFIDIOL (39542) VIT D 25Indication: Fatigue On: 97-Fhf-504241:19 Request TSH (67427)Indication: Fatigue On: 95-Tpc-305276:19 Request Metabolic Panel, Comprehensive (76873)Indication: Impaired fasting glucose On: 81-Wwn-016664:20 Request Comments: in three months (approximately) Metabolic Panel, Basic (80077)Indication: Hypertension On: :19 Request Comments: 2 weeks CBC (Auto) (66716)Indication: Alcohol abuse, continuous drinking behavior On: :17 Request Lipid Panel (10086)Indication: Impaired fasting glucose On: :16 Request Comments: in three months (approximately) Methylmalonic acid, serum 68155Qcnyyvpyvp: B12 deficiency On: :16 Request Comments: in three months (approximately) Vitamin B-12 (cyanocobalamin) (44965)Indication: B12 deficiency On: 85-Xdo-893857:16 Request Comments: in three months (approximately) CCP ANTIBODY (82850)Indication: Pain in unspecified joint On: :56 Request HgA1C , Office (60812)Indication: Impaired fasting glucose On: 02-Oub-729585:40 Request CARINE CULTURE-STOOL (49699)Indication: Diarrhea On: :52 Request C-DIFFICILE, STOOL (73394)Indication: Diarrhea On: :52 Request LEUKOCYTE COUNT, FECAL (49211)Indication: Diarrhea On: :52 Request OCCULT BLOOD FECES SCREEN (94993)Indication: Diarrhea On: :52 Request OVA & PARASITE DIR SMEAR (95765)Indication: Diarrhea On: :52 Request Metabolic Panel, Basic (44289)Indication: Hypertension On: :05 Request Metabolic Panel, Basic (90197)Indication: Hypertension On: :41 Request Vitamin B-12 (cyanocobalamin) (18977)Indication: B12 deficiency On: :41 Request Comments: 8 weeks CBC (Auto) (37852)Indication: Diarrhea On: :07 Request Metabolic Panel, Basic (68804)Indication: Diarrhea On: 6-Hyv-141768:07 Request VITAMIN B-12 (CYANOCOBALAMIN) (12294)Indication: B12 deficiency On: 1-Ylf-930409:04 Request Comments: methylmalonic acid CARINE CULTURE-STOOL (65645)Indication: Diarrhea On: 2-Ekk-180035:58 Request LEUKOCYTE COUNT, FECAL (48233)Indication: Diarrhea On: 1-Nrr-822373:58 Request C.Difficile, Stool (04229)Indication: Diarrhea On: 5-Zqi-754110:58 Request OVA & PARASITE DIR SMEAR (63081)Indication: Diarrhea On: 0-Zxu-691726:58 Request Vitamin B-12 (cyanocobalamin) (54872)Indication: B12 deficiency On: 5-Ohn-687424:53 Request Planned Procedures Flu Vaccine (Quadrivalent) On: 08-Aug-2018 Intent 37739Ki: Lauryn Hanson Comments: Lot #[id number]-L dltd, IMDose prefilled syringegiven by:LAMAR Sullivan reviewed and ABN signed ELECTROCARDIOGRAM, COMPLETE On: 17-May-2018 Intent (ECG) (49355)By: Devaughn PASTOR, Comments: nsr no acute chg Jazmine ATTENDED SLEEP STUDY (22743)By: On: 08-May-2018 Intent Jailene Mayfield CNP, CNP, Mary E SPIROMETRY (69915)By: Tran On: 06-Jan-2018 Intent Jailene LOTT CNP, Mary E Comments: normal Aerosol Treatment (21565)By: On: 19-Dec-2017 Intent Sue Rooney Comments: Lungs clear after aerosol treatment. 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 Jailene Mayfield CNP Nuclear Stress Test/Stress On: 25-May-2017 Intent SPECT/AdenosineBy: Jailene Mayfield CNP, CNP, Mary E Echo CompleteBy: Tran LOTT, On: 25-May-2017 Intent Jailene Puri CNP Holter Monitor 24 hrsBy: Tran On: 16-May-2017 Intent Jailene LOTT CNP, Mary E ELECTROCARDIOGRAM, COMPLETE On: 16-May-2017 Intent (ECG) (96755)By: Tran LOTT, Comments: sinus bradicardia and widening QT Jailene Vega Tran LOTT Jailene Vega Ultrasound - ThyroidBy: Nicholasa On: 29-Mar-2017 Intent KAYLIE Jailene Veag Tran LOTT Jailene Vega Flu Vaccine (Quadrivalent) On: 12-Jan-2017 Intent 13385Wd: Tran LOTT [place] Comments: Lot:[id number]:05/27/17Dose:0.5mLRoute:IMSite:L DltdGiven By:JOHANNE signed Tran LOTT [place] PNEUM VAC ADLT/IMUMNOSPR, On: 12-Jan-2017 Intent SBC/INTRM (07039)By: Tran LOTT, Comments: Lot:[id number]:04/16/18Dose:0.5mgRoute:imSite:r armGiven By:JOHANNE signed AureliaGary Mayfield CNP [place] Radiology - Chest- PA and On: 02-Dec-2016 Intent LatBy: Jazmine Cantor DO Spirometry (93532)By: Devaughn On: 02-Dec-2016 Jazmine Lowry DO Comments: obstructive pattern Aerosol Treatment (11913)By: On: 02-Dec-2016 Intent Jazmine Cantor DO Comments: more a/e but still inspir and exp noise - wheeze and rhonchi Solu- Medrol Injection, 125mg On: 02-Dec-2016 Intent (J2930)By: Jazmine Cantor DO Comments: solumedrollot:[id number]:05/16site:rt glutroute:IMdose:125mgD.ANN MARIE Gonzáles CHEST XRAY, PA & LATERAL On: 28-Sep-2016 Intent (72035)By: Jailene Mayfield CNP, CNP [place] Radiology - ChestBy: Tran LOTT, On: 21-Sep-2016 Intent AureliaGary Mayfield CNP [place] ELECTROCARDIOGRAM, COMPLETE On: 21-Sep-2016 Intent (ECG) (17572)By: Esequiel LANGSTON, Comments: sinus rthym Safia Ear Irrigation (09778)By: On: 19-Jul-2016 Intent Tran LOTT AureliaGary Mayfield CNP [place] Wax CurettesBy: Waqar ALBARADO, On: 06-Feb-2016 Intent Jewell Kendall Ear Irrigation (85374)By: On: 06-Feb-2016 Intent Jewell Hadley MD EKG (41970)By: Waqar ALBARADO, On: 17-Jun-2015 Intent Jewell Kendall Comments: see scanned document of test done to see results reviewed today with patient VITAMIN B12 INJECTION On: 27-Mar-2015 Intent (59475)By: Bethany Rehman Comments: Vitaman b12 Lot:[id number]:02/10Route:IMSite:L DeltoidDose: 1 mLgiven by:ANS INJECTION, VITAMIN B-12 On: 27-Mar-2015 Intent CYANOCOBALAMIN, UP TO 1000 MCG (Special Coverage Instructions Apply. See CIM: 45-4 and MCM: 2048) (J3420)By: Jewell Hadley MD Flu Vaccine (Quadrivalent) On: 09-Oct-2014 Intent 78880Fi: Jewell Hadley MD ADMINISTRATION OF INFLUENZA On: 09-Oct-2014 Intent VIRUS VACCINE (G0008)By: Jewell Hadley MD PHYSICAL THERAPY EVALUATION On: 17-May-2014 Intent (15429)By: Jailene Mayfield CNP, CNP, Mary E Radiology - Cervical SpineBy: On: 17-May-2014 Intent Jailene Mayfield CNP, CNP, Mary E Eprescribed prescriptions On: 26-Mar-2014 Intent (G8553)By: Jewell Hadley MD IMMUNIZATION ADMIN (69580)By: On: 12-Feb-2013 Intent Yoli Martinez LPN Comments: brought own B-12 Lot #[id number], exp. 11/10. given IM in L deltoid without difficylty or c/o voiced. jq INFUSION, NORMAL SALINE On: 12-Feb-2013 Intent SOLUTION , 1000 CC (Special Comments: Normal Saline, Lot #[id number], exp. June 10 infusing without infiltrate in L AC. JQ Coverage Instructions Apply. See MCM: 2048) (J7030)By: Jailene Mayfield CNP, CNP, Mary E HYDRATION IV INFUSION, INIT On: 12-Feb-2013 Intent (34857)By: Jailene Mayfield CNP Comments: IV initiated in: [...] On: 23-Mar-2010 Intent Jewell Kendall Ear Irrigation (81308)By: On: 23-Mar-2010 Intent Jewell Hadley MD EKG (14446)By: Waqar ALBARADO, On: 23-Mar-2010 Intent Jewell Kendall PHYSICAL THERAPY EVALUATION On: 21-Jan-2010 Intent (32490)By: Jailene Mayfield CNP, CNP, Mary E Yfsayzotb-Bld-Bgfs (48934)By: On: 07-Jul-2009 Intent Jazmine Cantor DO EKG (58740)By: Juan LANGSTON, On: 04-Apr-2009 Intent Yoli Ear Irrigation (39657)By: On: 30-Jan-2009 Intent Jewell Hadley MD Spirometry (96385)By: Waqar On: 28-Feb-2008 Intent Jewell ALBARADO Radiology - ChestBy: Waqar On: 18-Jan-2008 Intent Jewell ALBARADO B 12 Injection, 1000 mcg On: 02-Nov-2007 Intent (J3420)By: SHALINI Velazquez Comments: Lot #:[id number] date:ount given:1 ml Route: IMSite given:left deltoid Given by: darryl B 12 Injection, 1000 mcg On: 22-Sep-2007 Intent (J3420)By: Carolann White RN COLLECT VENOUS BLOOD, On: 25-Aug-2007 Intent VENIPUNCTURE (34671)By: Magda Viveros B 12 Injection, 1000 mcg [...] Velazquez ELECTROCARDIOGRAM, COMPLETE On: 27-Mar-2007 Intent (ECG) (28599)By: Jewell Hadley MD B 12 Injection, 1000 mcg On: 27-Mar-2007 Intent (J3420)By: Jewell Hadley MD Pulse Oximetry (16731)By: On: 27-Mar-2007 Intent Jewell Hadley MD Spirometry (80923)By: Waqar On: 27-Mar-2007 Intent Jewell ALBARADO Radiology [...] 45-4 and MCM: 2048) (J3420)By: Marianne Beck (79365)By: Waqar ALBARADO, On: 09-Dec-2006 Intent Jewell Kendall [...] enzymes : DISCONTINUED - ALCOHOL, ETHYL (BLOOD) (39556) Indication: Elevated liver enzymes Elevated liver enzymes : DISCONTINUED - HEPATIC FUNCTION PANEL (58710) Indication: Elevated liver enzymes Current smoker : [...] On: 23-Sep-2017 11:20 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 Pertinent medical history includes End: 29-Sep-2016 [...] for the procedure will be doctor antonieta [facility]. Pertinent medical history includes pr End: [...] patient does not have durable power of energy attorney or living will. The patient has [...] Note for Leg pain: moving furniture on [facility] felt pop and pull yesterday. [...]
--- OUTSIDE RECORDS SUMMARY | 2018-12-20 02:40 | XMS RPT_ITS ---
:1950 Author Organization OH[facility] Care Team Providers Name Role Phone Sue Rooney BODY FORMER-C Attending Unavailable [facility] Unavailable Jhony Yusuf Attending Unavailable Jhony Yusuf Referring Unavailable [facility] Unavailable July Mazariegos Attending Unavailable July Mazariegos Referring Unavailable [facility] Unavailable Gloria Batista Attending Unavailable [facility] Unavailable Gloria Batista Referring Unavailable July Mazariegos Attending Unavailable July Mazariegos Referring Unavailable [facility] Care Unavailable PROBLEMS PROBLEMS DATE TYPE CONDITION / CODE ATTENDING STATUS SOURCE 10/24/2018 Unknown 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 / Community M06.4(ICD-10) Hospital Repository 10/24/2018 Unknown R76.8 - Other July Mazariegos Active [facility] specified abnormal Community immunological Hospital findings in serum / Repository R76.8(ICD-10) 10/24/2018 Unknown K21.9 - July Mazariegos Active [facility] Gastro-esophageal Community reflux disease Hospital without esophagitis / Repository K21.9(ICD-10) 10/24/2018 Unknown G25.81 - Restless July Mazariegos Active [facility] legs syndrome / Community G25.81(ICD-10) Hospital Repository 10/24/2018 Unknown I10 - Essential July Mazariegos Active [place] (primary) Community hypertension / Hospital I10(ICD-10) Repository 10/24/2018 Unknown F41.9 - Anxiety July Mazariegos Active [place] disorder, unspecified Community / F41.9(ICD-10) Hospital Repository PROCEDURES PROCEDURES No Procedure Records FoundRESULTS RESULTS CBC W/DIFF, AUTOMATED Collected: 10/24/2018 Status: F Source: VEL 1:35 PM [facility] REPOSITORY TYPE CODE TESTS RESULT OUT OF RANGE REFERENCE UNITS LAB L100.1000 4.4-11.0 K/mm3 Normal WBC 7.7 LAB L100.1200 4.6-6.2 M/mm3 Normal RBC 5.27 LAB L100.1300 13.0-16.5 g/dl High HGB 17.1 LAB L100.1400 40-54 % Normal HCT 49.0 LAB L100.1500 80-94 fL Normal MCV 93.0 LAB L100.1600 27.0-32.0 pg High MCH 32.4 LAB L100.1700 32-36 g/gl Normal MCHC 34.9 LAB L100.1810 11.6-14.6 % Normal RDW CV 12.8 LAB L100.1820 35.1-43.9 fl Normal RDW SD 43.0 LAB L100.1900 150-450 K/mm3 Normal PLT 213 LAB L100.2000 6.2-12.0 fl Normal MPV 10.3 LAB L100.2100 47-70 % High NEUT% 87.3 LAB L100.2200 19-41 % Low LY% 9.5 LAB L100.2300 0-10 % Normal MONO% 2.1 LAB L100.2400 0-5 % Normal EO% 0.4 LAB L100.2500 0-1 % Normal BASO% 0.3 LAB L100.2550 0.0-0.9 % Normal IM GRAN % 0.400 Result Comment: IG% - Immature Granulocytes (promyelocytes, myelocytes and metamyelocytes) > 1% indicates that a LEFT SHIFT is Present. LAB L100.2620 2.0-7.7 X10 3/uL Normal Absolute Neut 6.7 LAB L100.2720 0.83-4.51 X10 3/ul Low Absolute Lymph 0.73 Performed By: #### L100.0100 #### [facility] [address] [place], [address] COMPREHENSIVE METABOLIC Collected: 10/24/2018 Status: F Source: VEL [facility] 1:35 PM [facility] REPOSITORY TYPE CODE TESTS RESULT OUT OF RANGE REFERENCE UNITS LAB L501.0100 74-106 mg/dL High GLU 145 Result Comment: Fasting Glucose result greater than or equal to 126 mg/dL suggests DIABETES MELLITUS per A.D.A. criteria. Please note revised GLUCOSE reference range effective 2017. LAB L501.1000 7-18 mg/dL Normal BUN 13 LAB L501.1100 0.70-1.30 mg/dL Normal CREAT,SERUM 0.86 Result Comment: The validity of the calculated GFR AND GFRAA in patients over 70 years has not been determined. Clinical correlation is essential. LAB L501.1110 >60 mL/min Normal EST GFR 93 Result Comment: Non- GFR Calc LAB L501.1115 >60 mL/min Normal EST GFR - AA 113 Result Comment: GFR Calc LAB L501.1300 10-20 RATIO Normal BUN/CRE 15.0 LAB L501.1500 6.4-8.2 g/dL T Normal PROT 7.7 LAB L501.1800 3.2-5.0 g/dL Normal ALB 3.8 LAB L501.1950 2.2-4.2 g/dL Normal GLOB 3.9 LAB L501.2000 0.9-2.4 RATIO Normal A/G 1.0 LAB L501.2200 8.5-10.1 mg/dL CA Normal 9.0 LAB L501.4100 15-37 U/L Normal AST 16 LAB L501.4305 45-117 U/L Normal ALK P 74 LAB L501.4405 16-61 U/L Normal ALT 25 LAB L501.4600 0.20-1.00 mg/dL High T BILI 1.10 LAB L501.5300 136-145 mmol/L NA Normal 140 LAB L501.5600 3.5-5.1 mmol/L K Normal 4.1 LAB L501.5900 98-107 mmol/L CL Normal 106 LAB L501.6100 21.0-32.0 mmol/L Normal CO2 26.0 LAB L501.6200 5-15 Normal GAP 8 Performed By: #### L500.4050 #### [facility] [address] [place], [address] CREATININE FINGERSTICK Collected: 08/22/2018 Status: F Source: VEL 12:28 PM [facility] REPOSITORY TYPE CODE TESTS RESULT OUT OF RANGE REFERENCE UNITS LAB L9100.0210 0.70-1.30 mg/dL Normal CREATININE WB 0.8 Performed By: #### L9100.0200 #### [facility] Point of Care [address] [place] [address] CT ABD/PELVIS W/WO Observed: 08/22/2018 Status: F Source: VEL CONTRAST 12:19 PM [facility] REPOSITORY [facility] Imaging Services [address] [place] [address] CT Abd/Pelvis W/WO Contrast MR#: [id number] Acct: [id number] Name: WILBERT MCWILLIAMS Rep #: [id number] : 1950 M 68 From: Syed Kraft PCP: Jailene Mayfield NP Status: REG CLI Study: CT Abd/Pelvis W/WO Contrast Date of Exam: 08/22/18 Exam# [id number] Ordering Dr: Gloria Batista BODY FORMER-C STUDY: CT ABDOMEN AND PELVIS WITH AND [...] inferior pole left renal calculus. Fundus and body of the stomach are collapsed limiting evaluation of wall thickening. Fluid-filled nondilated loops of small bowel left midabdomen. Mild colonic diverticulosis. Wall thickening involving a 9 cm segment of mid sigmoid colon versus lack of distention axial image 84 series 3. The appendix is visualized and appears normal. There is mild atherosclerotic calcification of the abdominal aorta, without a demonstrated aneurysm. Normal inferior vena cava. Normal retroperitoneum. No intra-abdominal free air. Normal urinary bladder. Prostate gland not enlarged. Normal abdominal wall. All degenerative changes of the lower lumbar spine. CT/CT Abd/Pelvis W/WO Contrast IMPRESSION: No hydronephrosis or ureteral stones. Small nonobstructive left renal calculus. Right renal cysts. Mild colonic diverticulosis. Wall thickening involving the mid sigmoid colon which may represent diverticular disease. Focal colitis secondary to infection or inflammatory bowel disease, or lack of distention are possibilities. Small hiatal hernia. Electronically Signed: Syed Kraft MD at 0:31 EDT , Service support , CC: Jailene Mayfield NP; Gloria Batista NP Visual Presentation Manager: Signed LOW DOSE CT LUNG Observed: 07/05/2018 Status: F Source: [facility]SE SCREENING 12:37 PM [facility] REPOSITORY [facility] Imaging Services [address] [place] [address] Lung Screening MR#: [id number] Acct: [id number] Name: WILBERT MCWILLIAMS Rep #: [id number] : 1950 M 68 From: Omar Montes De Oca MD PCP: Jailene Mayfield NP Status: REG CLI Study: Low Dose CT Lung Screening Date of Exam: 07/05/18 Exam# [id number] Ordering Dr: Jhony Yusuf MD STUDY: CT CHEST WITHOUT CONTRAST- LOW DOSE SCREENING PROTOCOL REASON FOR EXAM: Male, 68 years old. Current smoker. 40 pack per year history. No current symptoms of lung cancer or pulmonary infection. Shared decision-making with referring PCP documented in patient's record. RADIATION DOSAGE (If Supplied By Facility): CTDIvol = ( 3.02 ) mGy, DLP = ( 112.87 ) mGycm TECHNIQUE: Low dose screening CT examination performed from the base of the neck to the upper abdomen. Sagittal and coronal reformatted images performed. Sagittal and coronal MIP images provided. The measurements provided are average, rounded measurements per ACR guidelines. Individualized dose optimization [...] arteries. Normal mediastinum. Normal hilar regions. Normal unenhanced pulmonary arteries. There is atherosclerotic tortuosity of the aortic arch and descending thoracic aorta. Normal osseous structures. There is no demonstrated abnormality of the visualized upper abdomen. CT/Low Dose CT Lung Screening IMPRESSION: 1. No significant indeterminate incidental findings requiring additional imaging. 2. Incidental findings include mild paraseptal emphysema of the lung apices, atherosclerosis including coronary arteries, mild parenchymal fibrotic bands. ASSESSMENT CATEGORY: LungRADS 1 - Negative. Continue annual screening with LDCT in 12 months, per established ACR guidelines. Electronically Signed: Omar Montes De Oca MD at 18:16 EDT , Service support , CC: Jailene Mayfield BODY FORMER; Jhony Yusuf MD Visual Presentation Manager: Signed CBC W/DIFF, AUTOMATED Collected: 07/03/2018 Status: F Source: VEL 2:41 PM [facility] REPOSITORY TYPE CODE TESTS RESULT OUT OF RANGE REFERENCE UNITS LAB L100.1000 4.4-11.0 K/mm3 Normal WBC 8.4 LAB L100.1200 4.6-6.2 M/mm3 Normal RBC 5.00 LAB L100.1300 13.0-16.5 g/dl Normal HGB 16.5 LAB L100.1400 40-54 % Normal HCT 48.0 LAB L100.1500 80-94 fL High MCV 96.0 LAB L100.1600 27.0-32.0 pg High MCH 33.0 LAB L100.1700 32-36 g/gl Normal MCHC 34.4 LAB L100.1810 11.6-14.6 % Normal RDW CV 12.3 LAB L100.1820 35.1-43.9 fl Normal RDW SD 42.9 LAB L100.1900 150-450 K/mm3 Normal PLT 209 LAB L100.2000 6.2-12.0 fl Normal MPV 10.1 LAB L100.2100 47-70 % Normal NEUT% 69.3 LAB L100.2200 19-41 % Normal LY% 22.1 LAB L100.2300 0-10 % Normal MONO% 7.1 LAB L100.2400 0-5 % Normal EO% 1.1 LAB L100.2500 0-1 % Normal BASO% 0.2 LAB L100.2550 0.0-0.9 % Normal IM GRAN % 0.200 Result Comment: IG% - Immature Granulocytes (promyelocytes, myelocytes and metamyelocytes) > 1% indicates that a LEFT SHIFT is Present. LAB L100.2620 2.0-7.7 X10 3/uL Normal Absolute Neut 5.8 LAB L100.2720 0.83-4.51 X10 3/ul Normal Absolute Lymph 1.86 Performed By: #### L100.0100 #### [facility] [place], [address] URINALYSIS, ROUTINE Collected: 07/03/2018 Status: F Source: VEL (DIPSTICK) 2:41 PM [facility] REPOSITORY Order Comment: How was Urine Obtained? CLEAN CATCH TYPE CODE TESTS RESULT OUT OF RANGE REFERENCE UNITS LAB L400.3000 Yellow COLOR Normal Yellow LAB L400.3050 Clear Normal CLARITY Clear LAB L400.3200 Normal mg/dl Normal GLUCOSE, UR Normal LAB L400.3300 Negative mg/dL Normal BILIRUBIN URINE Negative LAB L400.3400 Negative mg/dl Normal KETONE UR Negative LAB L400.3465 1.002-1.030 Normal SP.GR. DIPSTX 1.015 LAB L400.3550 5.0 - 8.0 pH UR Normal 7.0 LAB L400.3600 Negative mg/dl PROT Normal DIPSTX Negative LAB L400.3700 Normal mg/dl High 4 UROBILI LAB L400.3750 Negative Normal NITRITE UR Negative LAB L400.3780 Negative /ul High 10 OCCULT BLOOD-UR LAB L400.3800 Negative /ul High LEUK 25 ESTERASE Performed By: #### L400.2010 #### [facility] [address] [place], [address] COMPREHENSIVE METABOLIC Collected: 07/03/2018 Status: F Source: [facility] 2:41 PM [facility] REPOSITORY TYPE CODE TESTS RESULT OUT OF RANGE REFERENCE UNITS LAB L501.0100 74-106 mg/dL Low GLU 72 Result Comment: Please note revised GLUCOSE reference range effective 2017. LAB L501.1000 7-18 mg/dL Normal BUN 14 LAB L501.1100 0.70-1.30 mg/dL Normal CREAT,SERUM 0.84 Result Comment: The validity of the calculated GFR AND GFRAA in patients over 70 years has not been determined. Clinical correlation is essential. LAB L501.1110 >60 mL/min Normal EST GFR 96 Result Comment: Non- GFR Calc LAB L501.1115 >60 mL/min Normal EST GFR - AA 116 Result Comment: GFR Calc LAB L501.1300 10-20 RATIO Normal BUN/CRE 16.6 LAB L501.1500 6.4-8.2 g/dL T Normal PROT 8.0 LAB L501.1800 3.2-5.0 g/dL Normal ALB 4.0 LAB L501.1950 2.2-4.2 g/dL Normal GLOB 4.0 LAB L501.2000 0.9-2.4 RATIO Normal A/G 1.0 LAB L501.2200 8.5-10.1 mg/dL CA Normal 8.9 LAB L501.4100 15-37 U/L Low AST 13 LAB L501.4305 45-117 U/L Normal ALK P 70 LAB L501.4405 16-61 U/L Normal ALT 21 LAB L501.4600 0.20-1.00 mg/dL T Normal BILI 0.90 LAB L501.5300 136-145 mmol/L NA Normal 140 LAB L501.5600 3.5-5.1 mmol/L K Normal 3.5 LAB L501.5900 98-107 mmol/L CL Normal 106 LAB L501.6100 21.0-32.0 mmol/L Normal CO2 29.0 LAB L501.6200 5-15 Normal GAP 5 Performed By: #### L500.4050 #### [facility] [address] [place], [place], [id number] PROTEIN+CREATININE Collected: Status: F Source: VEL RATIO,URINE 07/03/2018 2:41 PM [facility] REPOSITORY TYPE CODE TESTS RESULT OUT OF RANGE REFERENCE UNITS LAB L501.1200 NO RANGE EST. mg/dL Normal UR CREAT 166.00 LAB L501.1930 <11.9 mg/dL High 17.0 PROTEIN,UR.R AN. LAB L501.1940 0-200 mg/g CRE Normal PROT:CRE 102 RATIO Performed By: #### L501.0900 #### [facility] [address] [place], [place], [address] ANTINUCLEAR ANTIBODIES Collected: 07/03/2018 Status: F Source: VEL DIRECT 2:41 PM [facility] REPOSITORY TYPE CODE TESTS RESULT OUT OF REFERENCE UNITS RANGE LAB L3100.5475 Negative High Positive ALISON-DIRECT Result Comment: Performed at: [facility] [id number] Admissions Gate Attendant: Ger Gonzalez PhD, Phone: [phone] Performed By: #### L3100.5475, L3100.5500, L3410.0500, L3410.0700, L3410.4010 #### [facility] (refer to report for specific site) refer to report for address and phone number ANTI-DSDNA AB Collected: 07/03/2018 Status: F Source: VEL 2:41 PM [facility] REPOSITORY TYPE CODE TESTS RESULT OUT OF RANGE REFERENCE UNITS LAB L3100.5500 0-9 IU/mL High dsDNA AB 17 Result Comment: Negative <5 Equivocal 5 - 9 Positive >9 Performed By: #### L3100.5475, L3100.5500, L3410.0500, L3410.0700, L3410.4010 #### [facility] (refer to report for specific site) refer to report for address and phone number ANTI-CECILY Collected: 07/03/2018 Status: F Source: [facility] 2:41 PM [facility] REPOSITORY TYPE CODE TESTS RESULT OUT OF RANGE REFERENCE UNITS LAB L3410.0500 0.0-0.9 AI Normal ANTI-CECILY <0.2 Performed By: #### L3100.5475, L3100.5500, L3410.0500, L3410.0700, L3410.4010 #### [facility] (refer to report for specific site) refer to report for address and phone number [id number]-[id number] AB Collected: Status: F Source: [facility] 07/03/2018 2:41 PM [facility] REPOSITORY TYPE CODE TESTS RESULT OUT OF RANGE REFERENCE UNITS LAB L3410.0700 0.0-0.9 AI Normal ANTISCLER <0.2 Performed By: #### L3100.5475, L3100.5500, L3410.0500, L3410.0700, L3410.4010 #### [facility] (refer to report for specific site) refer to report for address and phone number ANTI-CENTROMERE B AB Collected: 07/03/2018 Status: F Source: [facility] 2:41 PM [facility] REPOSITORY TYPE CODE TESTS RESULT OUT OF RANGE REFERENCE UNITS LAB L3410.4010 0.0-0.9 AI Normal ANTI-CENT <0.2 B Performed By: #### L3100.5475, L3100.5500, L3410.0500, L3410.0700, L3410.4010 #### [facility] (refer to report for specific site) refer to report for address and phone number HEPATITIS B SURFACE Collected: 07/03/2018 Status: F Source: VEL AG 2:41 PM [facility] REPOSITORY TYPE CODE TESTS RESULT OUT OF RANGE REFERENCE UNITS LAB L3100.0400 Negative Normal HB Negative SURF AG Result Comment: Performed at: - [facility] [address] [id number] Admissions Gate Attendant: Ger Gonzalez PhD, Phone: [phone] Performed at: - [facility] [id number] Admissions Gate Attendant: Raghu Bowles PhD, Phone: [phone] Performed at: - [facility] [id number] Admissions Gate Attendant: Glenn Armijo MD, Phone: [phone] Performed By: #### L3100.0390, L3100.0528, L3100.0625, L3100.5700, L3100.5800, L3410.1400, L4600.0100 #### [facility] (refer to report for specific site) refer to report for address and phone number HEP B SURFACE Collected: 07/03/2018 Status: F Source: VEL ANTIBODIES 2:41 PM [facility] REPOSITORY TYPE CODE TESTS RESULT OUT OF RANGE REFERENCE UNITS LAB L3100.0528 . Normal Hep B Non Reactive Arpita AB Result Comment: Non Reactive: Inconsistent with immunity, less than 10 mIU/mL Reactive: Consistent with immunity, greater than 9.9 mIU/mL Performed By: #### L3100.0390, L3100.0528, L3100.0625, L3100.5700, L3100.5800, L3410.1400, L4600.0100 #### [facility] (refer to report for specific site) refer to report for address and phone number HEPATITIS C ANTIBODIES Collected: 07/03/2018 Status: F Source: VEL 2:41 PM [facility] REPOSITORY TYPE CODE TESTS RESULT OUT OF RANGE REFERENCE UNITS LAB L3100.0650 0.0-0.9 s/co ratio Normal HEP C AB <0.1 Result Comment: Negative: < 0.8 Indeterminate: 0.8 - 0.9 Positive: > 0.9 The CDC recommends that a positive HCV antibody result be followed up with a HCV Nucleic Acid Amplification test (581765). Performed By: #### L3100.0390, L3100.0528, L3100.0625, L3100.5700, L3100.5800, L3410.1400, L4600.0100 #### [facility] (refer to report for specific site) refer to report for address and phone number COMPLEMENT C3 Collected: 07/03/2018 Status: F Source: VEL 2:41 PM [facility] REPOSITORY TYPE CODE TESTS RESULT OUT OF RANGE REFERENCE UNITS LAB L3100.5700 82-167 mg/dL Normal COMP C3 140 Performed By: #### L3100.0390, L3100.0528, L3100.0625, L3100.5700, L3100.5800, L3410.1400, L4600.0100 #### [facility] (refer to report for specific site) refer to report for address and phone number COMPLEMENT C4 Collected: 07/03/2018 Status: F Source: VEL 2:41 PM [facility] REPOSITORY TYPE CODE TESTS RESULT OUT OF RANGE REFERENCE UNITS LAB L3100.5800 14-44 mg/dL Normal COMP C4 25 Performed By: #### L3100.0390, L3100.0528, L3100.0625, L3100.5700, L3100.5800, L3410.1400, L4600.0100 #### [facility] (refer to report for specific site) refer to report for address and phone number HLA B27 Collected: 07/03/2018 Status: F Source: VEL 2:41 PM [facility] REPOSITORY TYPE CODE TESTS RESULT OUT OF RANGE REFERENCE UNITS LAB L3410.1500 . Normal HLA Negative B27 Result Comment: HLA-B*27 Negative B27 allele interpretation for all loci based on IMGT/HLA database version 3.27 This test was developed and its performance characteristics determined by [facility]. It has not been cleared or approved by the Food and Drug Administration. [facility] CLIA ID Number [id number] This test was performed using PCR (Polymerase Chain Reaction)/SSOP (Sequence Specific Oligonucleotide Probes) technique. SBT (Sequence Based Typing) and/or SSP (Sequence Specific Primers) may be used as supplemental methods when necessary. Please contact [facility] Customer Service at if you have any questions. Director of [facility] Laboratory Dr Raghu Bowles, PhD Performed By: #### L3100.0390, L3100.0528, L3100.0625, L3100.5700, L3100.5800, L3410.1400, L4600.0100 #### [facility] (refer to report for specific site) refer to report for address and phone number CCP IGG ANTIBODIES Collected: 07/03/2018 Status: F Source: [facility] 2:41 PM [facility] REPOSITORY TYPE CODE TESTS RESULT OUT OF RANGE REFERENCE UNITS LAB L4600.0100 0-19 units Normal ANTI-CCP 5 [id number] Result Comment: Negative <20 Weak positive 20 - 39 Moderate positive 40 - 59 Strong positive >59 Performed By: #### L3100.0390, L3100.0528, L3100.0625, L3100.5700, L3100.5800, L3410.1400, L4600.0100 #### [facility] (refer to report for specific site) refer to report for address and phone number PELVIS 1 OR 2 VIEWS Observed: 07/03/2018 Status: F Source: [facility] 2:39 PM [facility] REPOSITORY [facility] Imaging Services [address] [place] [address] Pelvis 1 or 2 Views MR#: [id number] Acct: [id number] Name: WILBERT MCWILLIAMS Rep #: [id number] : 1950 M 68 From: Yuridia Dey MD PCP: Jailene Mayfield NP Status: REG CLI Study: Pelvis 1 or 2 Views Date of Exam: 07/03/18 Exam# [id number] Ordering Dr: July Mazariegos MD STUDY: X-RAY - PELVIS REASON FOR EXAM: Male, 68 years old. NO KNOWN INJURY. PAIN IN HIPS. HX OF INFLAMMATORY POLYARTHROPATHY TECHNIQUE: One view of the pelvis was obtained. COMPARISON: None. FINDINGS: There is a non-specific bowel gas pattern. Normal visualized soft tissue structures. There is narrowing with cortical sclerosis and osteophyte formation of the sacroiliac joint consistent with degenerative osteoarthritic changes. Normal visualized bilateral superior and inferior pubic rami. Normal pubic symphysis. Normal ischial tuberosities. Normal visualized right femoral head. Normal right acetabulum. Normal right hip joint. There are osteoarthritic changes of the left femoral head with marginal osteophyte formation. There is moderate to severe articular joint space narrowing of the left hip. RAD/Pelvis 1 or 2 Views IMPRESSION: Left hip osteoarthritis. Electronically Signed: Yuridia Dey MD at 12:37 EDT , Service support , CC: Jailene Mayfield NP; July Mazariegos MD Visual Presentation Manager: Signed L/S SPINE MIN 4 Observed: 12/19/2017 Status: F Source: [facility] VIEWS 2:42 PM [facility] REPOSITORY [facility] Imaging Services [address] [place] [address] L/S Spine Min 4 Views MR#: [id number] Acct: [id number] Name: WILBERT MCWILLIAMS Rep #: [id number] : 1950 M 67 From: Liu Fatima DO PCP: Jailene Mayfield NP Status: REG CLI Study: L/S Spine Min 4 Views Date of Exam: 12/19/17 Exam# [id number] Ordering Dr: Sue Rooney NP-Alexsander STUDY: X-RAY - LUMBAR SPINE REASON FOR EXAM: Male, 67 years old. Lower back pain. TECHNIQUE: 5 view(s) of the lumbar spine were obtained. COMPARISON: None FINDINGS: There is straightening of lumbar lordosis. There is a levoscoliosis with convexity at L4. There is a normal alignment of the vertebrae. There is multilevel endplate spondylosis of the lumbar vertebrae. There is multi-level degenerative disc disease with multi-level disc space narrowing. There is no evidence of acute fracture or loss of vertebral axial height. PICC line There is minimal atherosclerotic calcification of the abdominal aorta without a demonstrated aneurysm. RAD/L/S Spine Min 4 Views IMPRESSION: Scoliosis and degenerative changes of the lumbar spine. Electronically Signed: Liu Fatima DO at 13:02 EST Tel [phone], Service support , CC: Jailene Mayfield NP; BODY FORMER-C Sue Rooney Visual Presentation Manager: Signed CHEST PA AND LATERAL Observed: 12/19/2017 Status: F Source: VEL 2:42 PM [facility] REPOSITORY [facility] Imaging Services [address] [place] [address] Chest PA and Lateral MR#: [id number] Acct: [id number] Name: WILBERT MCWILLIAMS Rep #: [id number] : 1950 M 67 From: Liu Fatima DO PCP: Jailene Mayfield NP Status: REG CLI Study: Chest PA and Lateral Date of Exam: 12/19/17 Exam# [id number] Ordering Dr: Sue Rooney NP-Alexsander STUDY: X-RAY CHEST REASON FOR EXAM: Male, 67 years old. Abnormal lung sounds. TECHNIQUE: PA and lateral views of the chest. COMPARISON: December 02, 2016. FINDINGS: The lungs are mildly hyperexpanded. There is no focal mass or infiltrate. There is no demonstrated pleural abnormality. Normal size heart. Normal mediastinum and pearl. Normal visualized pulmonary arteries. Normal visualized aortic arch and descending thoracic aorta. Normal visualized thoracic spine. Normal visualized ribs, clavicles, and shoulders. There is no demonstrated abnormality of the visualized soft tissue structures of the upper abdomen. RAD/Chest PA and Lateral IMPRESSION: No acute cardiopulmonary disease. Electronically Signed: Liu Fatima DO at 13:03 EST Tel [phone], Service support , CC: Jailene Mayfield NP; ANGELICA Rooney Visual Presentation Manager: Signed ALLERGIES ALLERGIES DATE TYPE / CODE NAME / CODE REACTION SEVERITY SOURCE 11/08/2016 Drug No Known Unknown [facility] Allergy/4160 Allergies/F00 Hospital 32922(SNOMED 1111128(RXNOR Repository CT) M) ENCOUNTERS ENCOUNTERS ADMIT/DISCHARGE ACCOUNT ADMITTING ENCOUNTER LOCATION SOURCE NUMBER CLASS 10/24/2018 [id number] [facility] [place] [facility] ing:[facility] Repository 08/22/2018 [id number] Ambulatory [place] [facility] ing:CT Repository 07/05/2018 [id number] Ambulatory [place] 0 [facility] ing:CT Repository 07/03/2018 [id number] Ambulatory [place] [facility] ing:[facility] Repository 12/19/2017 [id number] Ambulatory [place] Vel 3 [facility] ing:HPRAD Repository PAYERS PAYERS ENCOUNTER GUARANTOR PAYER SUBSCRIBER SOURCE 10/24/2018 WILBERT Muñoz Primary WILBERT Toni Vel [id number] Insurance:[facility] FOSTER PART A [facility] [id number] Number: Repository [id number]: [phone] [id number] [phone] () Date:2018-10-24 10/24/2018 Secondary WILBERT B [place] [facility] CARE [id number] Hospital Number: Repository [id number] Date:[id number], [place] [address]TU: 10/24/2018 Tertiary NOT GIVENUNK [place] Insurance:SELF PAY [facility] Number: Effective Repository Date:2018-10-24 08/22/2018 WILBERT B Primary WILBERT B Vel [id number] Insurance:MEDICARE SANTANGELODOB: [facility] PART A [facility] [id number] Number: Repository [id number]: 330 [id number] [phone] (HP) Date:2018-08-15 08/22/2018 Secondary WILBERT B Vel Insurance:[facility] SANTANGELODOB: Community CARE [id number] Hospital Number: Repository [id number] Date:[id number], [place] [address]GR: 08/22/2018 Tertiary NOT GIVENUNK [place] Insurance:SELF PAY [facility] Number: Effective Repository Date:2018-08-15 07/05/2018 WILBERT B Primary WILBERT B [place] [id number] Insurance:MEDICARE SANTANGELODOB: Community FOSTER PART A [facility] [id number] Number: Repository [id number]: 330 [id number] [phone] (HP) Date:2018-06-27 07/05/2018 Secondary WILBERT B [place] Insurance:[facility] SANTANGELODOB: Community CARE [id number] Hospital Number: Repository [id number] Date:6749-20-74[address], [place] [address]SB: 07/05/2018 Tertiary NOT GIVENUNK [place] Insurance:SELF PAY [facility] Number: Effective Repository Date:2018-06-27 07/03/2018 WILBERT B Primary WILBERT B Vel [id number] Insurance:MEDICARE SANTANGELODOB: Community [place] PART A [facility] [id number] Number: Repository [id number]: 330 [id number] [phone] (HP) Date:2018-07-03 07/03/2018 Secondary WILBERT B Vel Insurance:[facility] HL[facility] SANTANGELODOB: Community CARE [id number] Hospital Number: Repository [id number] Date:0289-63-67[address], [place] [address]OV: 07/03/2018 Tertiary NOT GIVENUNK [place] Insurance:SELF PAY [facility] Number: Effective Repository Date:2018-07-03 12/19/2017 Wilbert Muñoz Primary Wilbert Crowdre [id number] Insurance[facility] PART A [facility] [id number] Number: Repository [id number]: [phone] [id number] [phone] () Date:2017-12-19 12/19/2017 Secondary Wilbert Crowder [facility] C[facility] [id number] Hospital Number: Repository [id number] Date:9009-48-32[address], [place] [address]BJ: 12/19/2017 Tertiary NOT GIVENUNK [place] Insurance:SELF PAY [facility] Number: Effective Repository Date:2017-12-19
--- OUTSIDE RECORDS SUMMARY | 2018-12-20 02:40 | XMS RPT_ITS | Continuity of Care Document ---
:1950 Author Organization [facility] Address [address] [place] [address] Phone Care Team Providers Name Role Phone Jailene Mayfield CNP Unavailable Dr. Ger Gaston Unavailable Jennifer Osuna Unavailable Wesley Sousa Unavailable [facility] Unavailable Blaire ALBARADO, Domenic Mancilla Unavailable [...] months doing well seeing Rogerio Freitas at [place]. stil work with him on and off. [...] updated, rec. local pharm for tetanus and Dorwavu19,whisper test=WNL mini mental=30/30 Status: Active Erectile disorder, [...] prevacid 3, wean nexium and take acid scratch brusher as needed. Status: Active Hearing loss of [...] leg cramps (G47.62, 327.52) Comments: using [facility] [employer] with help Status: Active Nocturnal leg cramps [...] Comments: two low T's done 09-21-16 and 8-8-74vinoez labs good, recheck psa and then cbc, [...] 3 Ordered:25-Sep-2018 Tran LOTT Jailene Rodney LOTT Jailnee Vega Start : 25-Sep-2018 Active Micah Mag Zinc +D3 Oral Tablet 1 (one) Tablet Tablet qhs for 0 days Quantity: 30 {Tablet} Refills: 0 Ordered:20-Sep-2017 Tran LOTT Jailene Rodney LOTT Jailene Vega Start : 20-Sep-2017 Active Ergocalciferol 78633 UNIT Oral Capsule 1 (one) Capsule Capsule [...] Quantity: 21 {Tablet} Refills: 0 Ordered:08-May-2018 Esequiel OFFICE SERVICES SPECIALISTOswald Delgadilloa Start : 19-Dec-2017 End : 08-May-2018 Inactive DEXILANT, 60MG (Oral Capsule Delayed Release) [address] qd for 0 days Quantity: 90 {Capsule_DR} Refills: 3 Ordered:26-Mar-2014 Long OFFICE SERVICES SPECIALIST, Mehnaz L Start : 06-Nov-2012 End : 26-Mar-2014 Inactive DEXILANT, 60MG (Oral Capsule Delayed Release) [address] qd for 0 days Quantity: 90 {Capsule_DR} Refills: 3 Ordered:26-Mar-2014 Long OFFICE SERVICES SPECIALIST, Mehnaz L Start : 06-Nov-2012 End : 26-Mar-2014 Inactive DICYCLOMINE HCL, 20MG (Oral Tablet) uad Tablet BID/PRN for 0 days Quantity: 30 {Tablet} Refills: 3 Ordered:26-Mar-2014 Long OFFICE SERVICES SPECIALIST, Mehnaz L Start : 03-Mar-2011 End : [...] End : 16-Dec-2014 Inactive Comments:watch sunsensitivity DRISDOL, 42407RIGU (Oral Capsule) 1 Capsule three times weekly for 0 days Quantity: 12 {Capsule} Refills: 3 Ordered:26-Mar-2014 Long OFFICE SERVICES SPECIALIST, Mehnaz L Start : 15-Feb-2012 End : [...] Quantity: 10 {Tablet} Refills: 4 Ordered:21-Mar-2017 Slarb OFFICE SERVICES SPECIALIST, Safia Start : 06-Feb-2016 End : 21-Mar-2017 Discontinued Vitamin B Complex Oral Tablet 1 (one) Tablet daily for 30 days Quantity: 30 {Tablet} Refills: 0 Ordered:13-Jun-2017 Slarb OFFICE SERVICES SPECIALIST, Safia Start : 16-May-2017 End : 13-Jun-2017 Discontinued Vitamin B1 100 MG Oral Tablet 1 (one) Tablet Tablet bid for 0 days Quantity: 30 {Tablet} Refills: 0 Ordered:21-Sep-2016 Slarb OFFICE SERVICES SPECIALIST, Safia Start : 08-Jul-2014 End : 21-Sep-2016 [...] Comments: doing well seeing Rogerio Freitas at [place]. doing well. Currently in remission. doing AA [place] meeting every tuesday. going every other week. [...] ear cyst Surgery Nov Dr. Chauhan at [facility] surgery center Status: Inactive as of 20-Sep-2017 [...] W/WO Contrast Result: Comments: See Note; NOTES: [facility] Imaging Services [address] [place] [address] CT Abd/Pelvis W/WO Contrast MR#: [id number] Acct: [id number] Name: WILBERT SEGURA Rep # : [id number] : 1950 M 68 From: Syed Kraft PCP: Jailene Mayfield NP Status: REG CLI Study: CT Abd/Pelvis W/WO Contrast Date of Exam: 08/22/18 Exam# [id number] Ordering Dr: Gloria Batista TELEVISION INSPECTOR-C STUDY: CT ABDOMEN AND PELVIS WITH AND [...] CC: Jailene Mayfield NP; Gloria Batista NP Cathode Ray Tube Salvage Processor: Signed 05-Jul-[address] Lung Screening Result: Comments: See Note; NOTES: [facility] Imaging Services [address] [place] [address] Lung Screening MR#: [id number] Acct: [id number] Name: WILBERT SEGURA Toni Rep #: [id number] : 1950 M 68 From: Omar Montes De Oca MD PCP: Jailene Mayfield NP Status: REG CLI Study: Low Dose CT Lung Screening Date of Exam: 07/05/18 Exam# [id number] Ordering Dr: Jhony Yusuf MD STUDY: CT [...] , Service support , CC: Jailene Mayfield TELEVISION INSPECTOR; Jhony Yusuf MD Cathode [employer] Tube Salvage Processor: Signed 03-Jul-2018 Pelvis 1 or 2 Views Result: Comments: See Note; NOTES: [facility] Imaging Services [address] [place] [address] Pelvis 1 or 2 Views MR#: [id number] Acct: [id number] Name: WILBERT SEGURA Rep #: [id number] : 1950 M 68 From: Yuridia Dey MD PCP: Jailene Mayfield NP Status: REG CLI Study: Pelvis 1 or 2 Views Date of Exam: 07/03/18 Exam# [id number] Ordering Dr: July Mazariegos MD STUDY: X-RAY [...] CC: Jailene Mayfield NP; July Mazariegos MD Cathode [employer] Tube Salvage Processor: Signed 19-Dec-2017 Chest PA and Lateral Result: Comments: See Note; NOTES: [facility] Imaging Services [address] [place] [address] Chest PA and Lateral MR#: [id number] Acct: [id number] Name: WILBERT SEGURA Rep #: [id number] : 1950 M 67 From: Liu Fatima DO PCP: Jailene Mayfield NP Status: REG CLI Study: Chest PA and Lateral Date of Exam: 12/19/17 Exam# [id number] Ordering Dr: Sue Rooney STUDY: X-RAY THANH [...] Signed: Orlando Whalen at 13:03 EST Tel [phone], Service support , CC: Jailene Mayfield NP; ANGELICA Rooney Cathode Ray Tube Salvage Processor: Signed 19-Dec-2017 Chest PA and Lateral Result: Comments: See Note; NOTES: [facility] Imaging Services [address] [place] [address] Chest PA and Lateral MR#: [id number] Acct: [id number] Name: WILBERT SEGURA Rep #: [id number] : 1950 M 67 From: Liu Fatima DO PCP: Jailene Mayfield NP Status: REG CLI Study: Chest PA and Lateral Date of Exam: 12/19/17 Exam# [id number] Ordering Dr: Sue Rooney STUDY: X-RAY HTANH ST REASON FOR EXAM: Male, 67 years [...] Signed: Orlando Whalen at 13:03 EST Tel [phone], Service support , CC: Jailene Mayfield NP; RUMA-C Sue Rooney Cathode Ray Tube Salvage Processor: Signed 19-Dec-2017 L/S Spine Min 4 Views Result: Comments: See Note; NOTES: [facility] Imaging Services [address] [place] [address] L/S Spine Min 4 Views MR#: [id number] Acct: [id number] Name: WILBERT SEGURA Rep #: [id number] : 1950 M 67 From: Liu Fatima DO PCP: Jailene Mayfield NP Status: REG CLI Study: L/S Spine Min 4 Views Date of Exam: 12/19/17 Exam# [id number] Ordering Dr: Sue Rooney STUDY: X-RAY - [...] Liu Fatima DO at 13:02 EST Tel [phone], Service support , CC: Jailene Mayfield NP; ANGELICA Rooney Cathode [employer] Tube Salvage Processor: Signed 04-Apr-2017 Thyroid Result: Comments: See Note; NOTES: [facility] Imaging Services [address] [place] [address] Verdana 4d Thyroid MR#: [id number] Acct: [id number] Name: WILBERT SEGURA Rep #: [id number] : 1950 M 67 From: Liu Fatima DO PCP: Jailene Mayfield Status: REG CLI Study: Thyroid Date of Exam: 04/04/17 Exam# [id number] Ordering Dr: Jailene Mayfield STUDY: THYROID ULTRASOUND [...] Liu Fatima DO at 8:53 EDT Tel [phone], Service support , Fax CC: Jailene Mayfield Cathode [employer] Tube Salvage Processor: Signed 02-Dec-2016 Chest PA and Lateral Result: Comments: See Note; NOTES: [facility] Imaging Services [address] [place] [address] Verdana 4d Chest PA and Lateral MR#: [id number] Acct: [id number] Name: WILBERT SEGURA Toni Espinoza #: [id number] : 1950 M 66 From: Liu Fatima DO PCP: Jailene Mayfield Status: REG CLI Study: Chest PA and Lateral Date of Exam: 12/02/16 Exam# [id number] Ordering Dr: Jazmine Cantor DO STUDY: X [...] Liu Fatima DO at 12:13 EST Tel [phone], Service supp ort [phone], CC: Jailene Mayfield; Jazmine Cantor DO Cathode [employer] T[employer] Salvage Processor: Signed 08-Nov-2016 Chest 1 View (Portable) Result: Comments: See Note; NOTES: [facility] Imaging Services [address] [place] [address] Verdana 4d Chest 1 View (Portable) MR#: [id number] Acct: [id number] Name: WILBERT SEGURA Rep #: [id number] : 1950 66 From: Maxi Arana MD PCP: Jailene Mayfield Status: REG ER Study: Chest 1 View (Portable) Date of Exam: 11/08/16 Exam# [id number] Ordering Dr: Leon Rodrigues MD UDY: X-RAY [...] Maxi Arana MD at 9:02 EST Tel [phone], Service support [phone], CC: Ann Marie Mayfield; Leon Rodrigues MD Cathode Ray Tube Salvage Processor: Signed 28-Sep-2016 Chest PA and Lateral Result: Comments: See Note; NOTES: [facility] Imaging Services [address] [place] [address] Verdana 4d Chest PA and Lateral MR#: [id number] Acct: [id number] Name: WILBERT SEGURA Rep #: [id number] : 1950 M 66 From: Tree Saul MD PCP: Jailene Mayfield Status: REG CLI Study: Chest PA and Lateral Date of Exam: 09/28/16 Exam# [id number] Ordering Dr: Jailene Mayfield STUDY: X-RA Y [...] MD at 21:06 EDT , Service support [phone], CC: Jailene Mayfield Cathode Ray Tube Salvage Processor: Signed 21-Sep-2016 Chest PA and Lateral Result: Comments: See Note; NOTES: [facility] Imaging Services [address] [place] [address] Verdana 4d Chest PA and Lateral MR#: [id number] Acct: [id number] Name: WILBERT SEGURA Rep #: [id number] : 1950 M 66 From: Maxi Arana MD PCP: Jailene Mayfield Status: REG CLI Study: Chest PA and Lateral Date of Exam: 09/21/16 Exam# [id number] Ordering Dr: Jailene Mayfield STUDY: X-RAY CHEST [...] Arana MD 2015 at 15:14 EDT Tel [phone], Service support [phone], CC: Jailene Mayfield Cathode Ray Tube Salvage Processor: Signed 06-Feb-2016 Spirometry (10932) Comments: see scanned document of test done to see results reviewed today with patient Result: 20-May-2014 Cerv Spine 4 or 5 Views Result: Comments: See Note; NOTES: [facility] Imaging Services [address] [place] [address] Radiology Report MR#: [id number] Acct: [id number] Name: WILBERT SEGURA Rep #: [id number] : 1950 M 64 From: Liu Fatima DO PCP: Jewell Hadley MD Status: REG CLI Study: Cerv Spine 4 or 5 Views Date of Exam: 05/20/14 Exam# [id number] Ordering Dr: Jailene Mayfield STUDY: X-RAY - [...] Liu Fatima DO at 9:03 EDT Tel [phone], Service support [phone], CC: Jailene Mayfield; Jewell Hadley MD Cathode Ray Tube Salvage Processor: Signed Family History Unknown Family Member Name [...] kg/m2 Body Surface Area Calculated 2.09 m2 7-Mgn-763054:20 Temperature 98.2 f Pulse 82 /min Comments: [...] Description Value Details :28 CREATININE FINGERSTICK Comments: [facility] [place] [address] [place] [address] CREATININE WB 0.8 mg/dL (Normal) Range: 0.70-1.30 [...] ANTI-ABIGAIL <0.2 {AI} (Normal) Range: 0.0-0.9 :41 Bhwj-Vjgayszkbsz-82 AB Comments: [facility] (refer to report for specific site)refer to report for address and phone number ANTISCLER <0.2 {AI} (Normal) Range: 0.0-0.9 :41 ANTINUCLEAR ANTIBODIES DIRECT Comments: [facility] (refer to report for specific site)refer to report for address and phone number ALISON-DIRECT Positive (Abnormal) Comments: Performed at: - [facility] [id number] Director: Ger Gonzalez PhD, Phone: [phone] :41 CBC W/Diff, Automated Comments: [facility] [address] [place], [place], [address] Absolute Lymph 1.86 {X10_3/ul} (Normal) Range: 0.83-4.51 [...] report for address and phone number ANTI-CCP 268433 5 {units} (Normal) Range: 0-19 Comments: Negative [...] Profil Comments: [facility] [address] [place], [place], [address] GAP 5 (Normal) Range: 5-15 CO2 29.0 [...] Comments: Please note revised GLUCOSE reference range jykqomthl71/02/2018. :41 Hep B Surface Antibodies Comments: [facility] [...] AG Negative (Normal) Comments: Performed at: - [facility] [id number] Director: Ger Gonzalez PhD, Phone: [phone] at: [facility] [id number] Director: Raghu Bowles PhD, Phone: [phone] at: [facility] [id number] Director: Glenn Armijo MD, Phone: [phone] :41 Hepatitis C Antibodies Comments: [facility] (refer to report for specific site)refer to report for address and phone number HEP C AB <0.1 {s/co_ratio} Range: 0.0-0.9 (Normal) Comments: Negative: < 0.8 Indeterminate: 0.8 - 0.9 Positive: > 0.9 The CDC recommends that a positive HCV antibody result be followed up with a HCV Nucleic Acid Amplification test (154765). : HLA B27 Negative (Normal) Comments: [facility] (refer to report for specific site)refer to report for address and phone number 41 Comments: HLA-B*27 TixwuqfwH86 allele interpretation for all loci based on IMGT/HLAdatabase version 3.27This test was developed and its performance characteristicsdetermined by [facility]. It has not been cleared o r approvedby the Food and Drug Administration.[facility] Lab CLIA ID Number [id number] test was performed using PCR (Polymerase ChainReaction)/SSOP (Sequence Specific Oligonucleotide Probes)technique. SBT (Sequence Based Typing) and/or SSP(Sequence Specific Primers) may be used as supplementalmethods when necessary. Please contact [facility] CustomerService at if you have any questions. Director of [facility] Laboratory Dr Raghu Bowles, PhD 5-Zll-691920:41 Protein+Creatinine Ratio,Urine Comments: [facility] [address] [facility] HairDebbie [place], [place], [id number] PROT:CRE RATIO 102 {mg/g_CRE} (Normal) Range: 0-200 PROTEIN,UR.RAN. 17.0 mg/dL (Abnormal) UR CREAT 166.00 mg/dL (Normal) 5-Smd-131861:41 Urinalysis, Routine (Dipstick) Comments: How was Urine Obtained? [facility] Unkh[address]hsfrs[address] [facility] [place], [place], [id number] LEUK ESTERASE 25 /ul (Abnormal) OCCULT BLOOD-UR 10 /ul (Abnormal) NITRITE UR Negative (Normal) UROBILI 4 mg/dL (Abnormal) PROT DIPSTX Negative mg/dL (Normal) pH UR 7.0 (Normal) Range: 5.0 - 8.0 SP.GR. DIPSTX 1.015 (Normal) Range: 1.002-1.030 KETONE UR Negative mg/dL (Normal) BILIRUBIN URINE Negative mg/dL (Normal) GLUCOSE, UR Normal mg/dL (Normal) CLARITY Clear (Normal) COLOR Yellow (Normal) 1-Lzd-308900:35 CBC, Platelets & Auto Diff Comments: PATIENT NOT FASTINGPERFORMED BY: [facility] Lnzrzz9085 [facility] [id number] (68485) Immature Grans (Abs) 0.0 {x10E3/uL} (Normal) Range: [...] 4.14-5.80 WBC 8.2 {x10E3/uL} (Normal) Range: 3.4-10.8 72-Hrj-325121:24 Systemic Lupus Profile A Comments: PATIENT NOT FASTINGPERFORMED BY: [facility] CenterOsjcvd3003 [facility] [id number] Anti-DNA (DS) Ab Qn 16 {IU/mL} Range: 0-9 (Abnormal) Comments: Negative <5 Equivocal 5 - 9 Positive >9 Sjogren's Anti-SS-B <0.2 {AI} (Normal) Range: 0.0-0.9 Sjogren's Anti-SS-A <0.2 {AI} (Normal) Range: 0.0-0.9 Antichromatin Antibodies 0.3 {AI} (Normal) Range: 0.0-0.9 RA Latex Turbid. <10.0 {IU/mL} Range: 0.0-13.9 (Normal) Diaz Antibodies <0.2 {AI} (Normal) Range: 0.0-0.9 DRILL OPERATOR Antibodies <0.2 {AI} (Normal) Range: 0.0-0.9 17-May-2018 Written Authorization WAR (Normal) Comments: PATIENT NOT FASTINGPERFORMED BY: [facility] Hahkpa0067 [facility] [id number] 11:24 Comments: Written Authorization Received.Authorization received from SHALINI VELAZQUEZ LPN [id number] by Yoli Mcginnis 71-Mpl-753476:24 HGB A1C (62415) Comments: PATIENT NOT FASTINGPERFORMED BY: [facility] Pauxcs2689 [facility] [id number] Hemoglobin A1c 5.7 % (Abnormal) Range: 4.8-5.6 Comments: . Pre-diabetes: 5.7 - 6.4 Diabetes: >6.4 Glycemic control for adults with diabetes: <7.0 69-Win-568368:24 EBV ACUTE PFOF IgG/IgM Comments: PATIENT NOT FASTINGPERFORMED BY: [facility] Uxpyyy5351 [facility] [id number] (85046) Interpretation: [facility] (Normal) Comments: EBV Interpretation Chart . Interpretation [...] 43.9 Positive >43.9 :24 CMV IGM ANTBDY (35868) Comments: PATIENT NOT FASTINGPERFORMED BY: [facility] Jbgghd1092 [facility] [id number] Cytomegalovirus (CMV) Ab, IgM <30.0 AU/mL (Normal) Range: 0.0-29.9 Comments: Negative <30.0 Equivocal 30.0 - 34.9 Positive >34.9 A positive result is generally indicative of acute infection, reactivation or persistent IgM production. :24 CALCIFIDIOL (38635) VIT D 25 Comments: PATIENT NOT FASTINGPERFORMED BY: [facility] Dafyfj5075 [facility] [id number] Vitamin D, 25-Hydroxy 63.7 ng/mL (Normal) Range: 30.0-100.0 Comments: Vitamin D deficiency has been defined by the [place] of[facility] and an Endocrine Society practice guideline as alevel of serum 25-OH vitamin D less than 20 ng/mL (1,2).The Endocrine Society went on to further define vitamin Dinsufficiency as a level between 21 and 29 ng/mL (2).1. IOM ([place] of Medicine). 2010. Dietary reference intakes for calcium and D. [place]: The National Academies Press.2. Clifton MF, Robbi NC, Ladarius GONZALES, et al. Evaluation, treatment, and prevention of vitamin D deficiency: an Endocrine Society clinical practice guideline. JCEM. 2010; 96(7):1911-30. 13-Uzl-168316:24 VITAMIN B-12 (CYANOCOBALAMIN) Comments: PATIENT NOT FASTINGPERFORMED BY: The Original SoupManCo Kuuszx3035 [facility] [id number] (82893) Vitamin B12 476 pg/mL (Normal) Range: 232-1245 58-Ipe-299423:24 TSH (56333) Comments: PATIENT NOT FASTINGPERFORMED BY: [facility] Ebmvtx4393 [facility] [id number] TSH 0.509 {uIU/mL} (Normal) Range: 0.450-4.500 97-Mvr-929436:24 SED RATE ERYTHROCYTE (46075) Comments: PATIENT NOT FASTINGPERFORMED BY: [facility]CoH[facility] CenterLdpdpj7717 [facility] [id number] Sedimentation Rate-Westergren 2 mm/h (Normal) Range: 0-30 81-Yxh-576424:24 METABOLIC PANEL, COMPREHENSIVE Comments: PATIENT NOT FASTINGPERFORMED BY: [facility] Unptor7412 [facility] [id number] (43850) ALT (SGPT) 15 [iU]/L (Normal) Range: 0-44 [...] 8-27 Glucose 101 mg/dL (Abnormal) Range: 65-99 34-Kmd-168395:24 C-REACTIVE PROTEIN (12466) Comments: PATIENT NOT FASTINGPERFORMED BY: [place] [address] [facility] [id number] C-Reactive Protein, Quant 5.5 mg/L (Abnormal) Range: 0.0-4.9 93-Vec-362233:24 CBC (AUTO) (05379) Comments: PATIENT NOT FASTINGPERFORMED BY: [address] [id number] Platelets 232 {x10E3/uL} (Normal) Range: 150-379 RDW 13.4 % (Normal) Range: 12.3-15.4 MCHC 34.2 g/dL (Normal) Range: 31.5-35.7 MCH 33.3 pg (Abnormal) Range: 26.6-33.0 MCV 97 fL (Normal) Range: 79-97 Hematocrit 47.9 % (Normal) Range: 37.5-51.0 Hemoglobin 16.4 g/dL (Normal) Range: 13.0-17.7 RBC 4.92 {x10E6/uL} (Normal) Range: 4.14-5.80 WBC 7.0 {x10E3/uL} (Normal) Range: 3.4-10.8 35-Lfr-923251:24 ALISON (ANTINUCLEAR ANTIBODY) Comments: PATIENT NOT FASTINGPERFORMED BY: [address] [id number] (32467) ALISON Direct Positive (Abnormal) :41 MAGNESIUM (24462) Comments: PATIENT NOT FASTINGPERFORMED BY: [place] [address] [facility] [id number] Magnesium 2.2 mg/dL (Normal) Range: 1.6-2.3 71-Anm-19215:41 TSH (60813) Comments: PATIENT NOT FASTINGPERFORMED BY: [address] [id number] TSH 1.070 {uIU/mL} (Normal) Range: 0.450-4.500 62-Dak-27202:41 CBC, Platelets & Auto Diff Comments: PATIENT NOT FASTINGPERFORMED BY: [facility]6370 [facility] [id number] (12571) Immature Grans (Abs) 0.0 {x10E3/uL} (Normal) Range: [...] 4.14-5.80 WBC 8.3 {x10E3/uL} (Normal) Range: 3.4-10.8 01-Xlk-19133:41 Metabolic Panel, Comprehensive Comments: PATIENT NOT FASTINGPERFORMED BY: [facility]6370 [facility] [id number] (83521) ALT (SGPT) 16 [iU]/L (Normal) Range: 0-44 [...] 8-27 Glucose 99 mg/dL (Normal) Range: 65-99 31-Rea-619232:20 HgA1C , Office (28378) HgA1C , Office 5.5 % (Normal) Range: 4.6 - 7.1 :31 LIPID PANEL (28005) Comments: PATIENT WAS FASTINGPERFORMED BY: [facility]Co[facility] CenterVhlnlr9498 [facility] [id number] LDL/HDL Ratio 2.1 {ratio_units} (Normal) Range: 0.0-3.6 [...] 173 mg/dL (Normal) Range: 100-199 :31 CALCIFEDIOL (26444) Comments: PATIENT WAS FASTINGPERFORMED BY: [facility]6370 [facility] [id number] Vitamin D, 25-Hydroxy 54.2 ng/mL (Normal) Range: 30.0-100.0 Comments: Vitamin D deficiency has been defined by the [place] ofMedicine and an Endocrine Society practice guideline as alevel of serum 25-OH vitamin D less than 20 ng/mL (1,2).The Endocrine Society went on to further define vitamin Dinsufficiency as a level between 21 and 29 ng/mL (2).1. IOM ([place] of Medicine). 2010. Dietary reference intakes for calcium and D. [place]: The National Academies Press.2. Clifton MF, Robbi MADRID, Ladarius GONZALES, et al. Evaluation, treatment, and prevention of vitamin D deficiency: an Endocrine Society clinical practice guideline. JCEM. 2010; 96(7):1911-30. :31 CBC, Platelets & Auto Diff Comments: PATIENT WAS FASTINGPERFORMED BY: [facility]CoAl[facility] HospitalIclrhf4100 [facility] [id number] (31798) Immature Grans (Abs) 0.0 {x10E3/uL} (Normal) Range: [...] 6.4 {x10E3/uL} (Normal) Range: 3.4-10.8 :31 TSH (85110) Comments: PATIENT WAS FASTINGPERFORMED BY: SwippAl[facility] Vista Regional HospitalBmeyyj2914 [facility] [id number] TSH 0.564 {uIU/mL} (Normal) Range: 0.450-4.500 :31 Metabolic Panel, Comprehensive Comments: PATIENT WAS FASTINGPERFORMED BY: [facility]igabidAl[facility] Vista Regional HospitalMmsuia5347 [facility] [id number] (13189) ALT (SGPT) 11 [iU]/L (Normal) Range: 0-44 [...] 110 mg/dL (Abnormal) Range: 65-99 :03 CALCIFEDIOL (54763) Comments: today; PATIENT NOT FASTINGPERFORMED BY: [facility]Savfe70 [facility] [id number] Vitamin D, 25-Hydroxy 51.0 ng/mL (Normal) Range: 30.0-100.0 Comments: Vitamin D deficiency has been defined by the [place] ofMedicine and an Endocrine Society practice guideline as alevel of serum 25-OH vitamin D less than 20 ng/mL (1,2).The Endocrine Society went on to further define vitamin Dinsufficiency as a level between 21 and 29 ng/mL (2).1. IOM ([place] of Medicine). 2010. Dietary reference intakes for calcium and D. [place]: The National Academies Press.2. Clifton MF, Robbi NC, Ladarius GONZALES, et al. Evaluation, treatment, and prevention of vitamin D deficiency: an Endocrine Society clinical practice guideline. JCEM. 2010; 96(7):1911-30. :03 VITAMIN B12 AND FOLATES Comments: today; PATIENT NOT FASTINGPERFORMED BY: AgroSavfe70 [facility] hospital [id number] (93135) Folate (Folic Acid), Serum 10.2 ng/mL (Normal) Comments: A serum folate concentration of less than 3.1 ng/mL isconsidered to represent clinical deficiency. Vitamin B12 1184 pg/mL (Abnormal) Range: 211-946 :03 MAGNESIUM (48233) Comments: today; PATIENT NOT FASTINGPERFORMED BY: MEMSIC6370 [place] [id number] Magnesium, Serum 2.1 mg/dL (Normal) Range: 1.6-2.3 7-Dus-026078:09 T4, FREE (THYROXINE) (70064) Comments: PATIENT NOT FASTINGPERFORMED BY: [facility]6370 [facility] [id number] T4,Free(Direct) 1.03 ng/dL (Normal) Range: 0.82-1.77 2-Azk-747295:09 T3, FREE (TRIDOTHYRONINE) (94491) Comments: PATIENT NOT FASTINGPERFORMED BY: [facility]6370 [facility] [id number] Triiodothyronine,Free,Serum 3.7 pg/mL (Normal) Range: 2.0-4.4 9-Izw-341619:09 TSH (THYROID STIMULATING Comments: PATIENT NOT FASTINGPERFORMED BY: [facility]University [facility] Health6370 [facility] [id number] HORMONE) (63000) TSH 0.464 {uIU/mL} (Normal) Range: 0.450-4.500 75-Xkt-824188:47 CBC, Platelets & Auto Diff Comments: PATIENT NOT FASTINGPERFORMED BY: The Original SoupManUniversity Of Michigan Health6370 [facility] [id number] (76398) Immature Grans (Abs) 0.0 {x10E3/uL} (Normal) Range: [...] Range: 3.4-10.8 :47 CPK TOTAL & ISOENZYMES (70071) Comments: PATIENT NOT FASTINGPERFORMED BY: SwippHoboken University Medical CenterRpounu0536 [facility] [id number] CK-BB 0 % (Normal) CK-MB 0 % (Normal) Range: 0-3 Macro Type 1 0 % (Normal) CK-MM 100 % (Normal) Range: 97-100 Macro Type 2 0 % (Normal) Creatine Kinase,Total,Serum 182 U/L (Normal) Range: 24-204 :47 CALCIFEDIOL (71011) Comments: PATIENT NOT FASTINGPERFORMED BY: SwippHoboken University Medical CenterAwxymp5814 [facility] [id number] Vitamin D, 25-Hydroxy 45.7 ng/mL (Normal) Range: 30.0-100.0 Comments: Vitamin D deficiency has been defined by the [place] of[facility]cine and an Endocrine Society practice guideline as alevel of serum 25-OH vitamin D less than 20 ng/mL (1,2).The Endocrine Society went on to further define vitamin Dinsufficiency as a level between 21 and 29 ng/mL (2).1. IOM ([place] of Medicine). 2010. Dietary reference intakes for calcium and D. [place]: The National Academies Press.2. Clifton MF, Robbi MADRID, Ladarius GONZALES, et al. Evaluation, treatment, and prevention of vitamin D deficiency: an Endocrine Society clinical practice guideline. JCEM. 2010; 96(7):1911-30. :47 TSH (THYROID STIMULATING Comments: PATIENT NOT FASTINGPERFORMED BY: [facility] Odwffs4742 [facility] [id number] HORMONE) (19642) TSH 0.367 {uIU/mL} (Abnormal) Range: 0.450-4.500 08-Cul-953755:42 PSA (Medicare - G0103) Comments: today; PATIENT NOT FASTINGPERFORMED BY: CB [facility] Bmfbiw9630 [facility] [id number]; OV 01/25/17 (48893) Prostate Specific Ag, 0.6 ng/mL (Normal) Range: 0.0-4.0 Serum Comments: ZeccoIA methodology. .According to the [place] [employer], Serum PSA shoulddecrease and remain at undetectable levels after radicalprostatectomy. The AUA defines biochemical recurrence as an initialPSA value 0.2 ng/mL or greater followed by a subsequent confirmatoryPSA value 0.2 ng/mL or greater.Values obtained with d ifferent assay methods or kits cannot be usedinterchangeably. Results cannot be interpreted as absolute evidenceof the presence or absence of malignant disease. 28-Wrj-779253:10 CBC, Platelets & Auto Diff Comments: PATIENT WAS FASTINGPERFORMED BY: The Original SoupManCorp Qpvjml0803 [facility] [id number] (00206) Immature Grans (Abs) 0.0 {x10E3/uL} (Normal) Range: [...] 4.14-5.80 WBC 7.2 {x10E3/uL} (Normal) Range: 3.4-10.8 06-Iao-357404:10 TSH (31524) Comments: PATIENT WAS FASTINGPERFORMED BY: Swipp Taqdfo0933 [facility] [id number] TSH 0.537 {uIU/mL} (Normal) Range: 0.450-4.500 56-Uwz-158970:10 Metabolic Panel, Comprehensive Comments: PATIENT WAS FASTINGPERFORMED BY: LabCoHoboken University Medical CenterSdbwmn8989 [facility] [id number]; ov 01/21 (58938) ALT (SGPT) 16 [iU]/L (Normal) Range: 0-44 [...] Glucose, Serum 83 mg/dL (Normal) Range: 65-99 50-Gld-617845:10 Lipid Panel (49440) Comments: PATIENT WAS FASTINGPERFORMED BY: AgroSavfe70 [facility] hospital [id number] LDL/HDL Ratio 2.0 {ratio_units} (Normal) Range: 0.0-3.6 Comments: LDL/HDL Ratio Men Women 1/2 Avg.Risk 1.0 1.5 Av g.Risk 3.6 3.2 2X Avg.Risk 6.2 5.0 3X Avg.Risk 8.0 6.1 LDL Cholesterol Calc 106 mg/dL (Abnormal) Range: 0-99 VLDL Cholesterol Micah 18 mg/dL (Normal) Range: 5-40 HDL Cholesterol 52 mg/dL (Normal) Triglycerides 88 mg/dL (Normal) Range: 0-149 Cholesterol, Total 176 mg/dL (Normal) Range: 100-199 91-Kxv-929929:10 CALCIFEDIOL (69482) Comments: PATIENT WAS FASTINGPERFORMED BY: MEMSIC6370 [facility] hospital [id number] Vitamin D, 25-Hydroxy 42.8 ng/mL (Normal) Range: 30.0-100.0 Comments: Vitamin D deficiency has been defined by the [place] ofMedicine and an Endocrine Society practice guideline as alevel of serum 25-OH vitamin D less than 20 ng/mL (1,2).The Endocrine Society went on to further define vitamin Dinsufficiency as a level between 21 and 29 ng/mL (2).1. IOM ([place] of Medicine). 2010. Dietary reference intakes for calcium and D. [place]: The National Academies Press.2. Clifton MF, Robbi MADRID, Ladarius GONZALES, et al. Evaluation, treatment, and prevention of vitamin D deficiency: an Endocrine Society clinical practice guideline. JCEM. 2010; 96(7):1911-30. :50 Basic Metabolic Profile (BMP) Comments: 'TROP' Serial specimen #1, #2, #3, or #4: [address] [place] [address] [address]woqr[address]26 [place], [address] GAP 3 (Abnormal) Range: 5-15 CO2 26.0 [...] A.D.A. criteria. :50 CBC W/Diff, Automated Comments: [facility] Q[address] [place], [address] ; another doc Absolute Lymph [...] Serial specimen #1, #2, #3, or #4: [facility] Jktwdrotbo[address] [place], [address] TROPONIN-I < 0.02 ng/mL (Normal) Comments: TROPONIN-I EXPECTED VALUES <0.05 NEGATIVE 0.06 - 0.59 AT RISK OF ID > OR = 0.60 SUGGEST ID :40 TESTOSTERONE FREE (52922) Comments: PATIENT NOT FASTINGPERFORMED BY: [address] [id number] Free Testosterone(Direct) 5.8 pg/mL (Abnormal) Range: 6.6-18.1 56-Nfv-961238:40 TSH (THYROID STIMULATING Comments: PATIENT NOT FASTINGPERFORMED BY: [address] [id number] BY: [address] [id number] HORMONE) (61286) TSH 0.600 {uIU/mL} (Normal) Range: 0.450-4.500 :40 TESTOSTERONE ,TOT/FREE Comments: PATIENT NOT FASTINGPERFORMED BY: The Original SoupMan[address] [id number] BY: [address] [id number] 13492 (40585) Free Testosterone(Direct) 5.2 pg/mL (Abnormal) Range: 6.6-18.1 Comment: TESTM (Normal) Comments: Adult male reference interval is based on a population of lean malesup to 40 years old. Testosterone, Serum 275 ng/dL (Abnormal) Range: 348-1197 69-Pgk-508300:40 PT (PROTHROMBIN TIME) Comments: PATIENT NOT FASTINGPERFORMED BY: [address] [id number] BY: [address] [id number] (78619) Prothrombin Time 10.4 {sec} (Normal) Range: 9.1-12.0 INR 1.0 (Normal) Range: 0.8-1.2 Comments: Reference interval is for non-anticoagulated patients. . Suggested INR therapeutic range for Vitamin K anta gonist therapy: Standard Dose (moderate intensity therapeutic range): 2.0 - 3.0 Higher intensity therapeutic range 2.5 - 3.5 04-Tvk-572620:40 CBC, PLATELETS & AUT DIFF Comments: PATIENT NOT FASTINGPERFORMED BY: SwippCindy [place] 2257870 [facility] [id number] BY: The Original SoupMan[address] [id number] (93585) Immature Grans (Abs) 0.0 {x10E3/uL} (Normal) Range: [...] 4.14-5.80 WBC 7.8 {x10E3/uL} (Normal) Range: 3.4-10.8 09-Otk-048387:40 Metabolic Panel, Basic Comments: PATIENT NOT FASTINGPERFORMED BY: SwippHoboken University Medical CenterDkecrw8978 [facility] [id number] BY: The Original SoupMan[address] [id number] (50350) Calcium, Serum 8.9 mg/dL (Normal) Range: 8.6-10.2 [...] Metabolic Panel, Comments: PATIENT NOT FASTINGPERFORMED BY: LabCoHoboken University Medical CenterKjvide8988 [facility] [id number] Information: [id number] Comprehensive (16399) ALT (SGPT) 11 [iU]/L (Normal) Range: 0-44 [...] (THYROID STIMULATING Comments: PATIENT NOT FASTINGPERFORMED BY: LifeNexusCritical access hospital [id number] HORMONE) (53965) TSH 0.483 {uIU/mL} (Normal) Range: 0.450-4.500 :46 MAGNESIUM (56969) Comments: PATIENT NOT FASTINGPERFORMED BY: TermScoutAtrium Health Union [id number] Magnesium, Serum 1.9 mg/dL (Normal) Range: 1.6-2.3 :53 MICROALBUMIN: CREATININE RATIO Comments: PATIENT NOT FASTINGPERFORMED BY: TermScoutAtrium Health Union [id number] (00520) AND (15325) Microalb/Creat Ratio 3.2 {mg/g_creat} (Normal) Range: 0.0-30.0 Microalbumin, Urine 4.2 ug/mL (Normal) Range: 0.0-17.0 Creatinine, Urine 130.8 mg/dL (Normal) Range: 22.0-328.0 :53 URINALYSIS (41694) Comments: PATIENT NOT FASTINGPERFORMED BY: Zigabid 6sicuro.itFreeman Neosho Hospital [id number] Information: [id number] Microscopic Examination MICNIP (Normal) Comments: Microscopic not indicated and not performed. Nitrite, Urine Negative (Normal) Urobilinogen,Semi-Qn 1.0 mg/dL (Normal) Range: 0.2-1.0 Bilirubin Negative (Normal) Occult Blood Negative (Normal) Ketones Negative (Normal) Glucose Negative (Normal) Protein Negative (Normal) WBC Esterase Negative (Normal) Appearance Clear (Normal) Urine-Color Yellow (Normal) pH 7.0 (Normal) Range: 5.0-7.5 Specific [place] 1.027 (Normal) Range: 1.005-1.030 :56 PSA (PROSTATE SPECIFIC Comments: PATIENT WAS FASTINGPERFORMED BY: MEMSIC6370 [facility] [id number] ANTIGEN) (V76.44) Prostate Specific Ag, 0.6 ng/mL (Normal) Range: 0.0-4.0 Serum Comments: ZeccoIA methodology. .According to the [place] [employer] Association, Serum PSA shoulddecrease and remain [...] PANEL, COMPREHENSIVE Comments: PATIENT WAS FASTINGPERFORMED BY: MEMSIC6370 [facility] [id number] (23797) ALT (SGPT) 12 [iU]/L (Normal) Range: 0-44 [...] mg/dL (Abnormal) Range: 65-99 :56 LIPID PANEL (75415) Comments: PATIENT WAS FASTINGPERFORMED BY: LifeNexusCritical access hospital [id number] LDL/HDL Ratio 2.4 {ratio_units} (Normal) Range: 0.0-3.6 [...] auto diff Comments: PATIENT WAS FASTINGPERFORMED BY: MEMSIC6370 [facility] [id number] Information: [id number] (03311) Immature Grans (Abs) 0.0 {x10E3/uL} (Normal) Range: [...] 7.3 {x10E3/uL} (Normal) Range: 3.4-10.8 01-Dec-20158:56 CALCIFIDIOL (68980) VIT D 25 Comments: PATIENT WAS FASTINGPERFORMED BY: LabCoHoboken University Medical CenterGtoivs5412 [facility] [id number] Vitamin D, 25-Hydroxy 45.0 ng/mL (Normal) Range: 30.0-100.0 Comments: Vitamin D deficiency has been defined by the [place] ofMedicine and an Endocrine Society practice guideline as alevel of serum 25-OH vitamin D less than 20 ng/mL (1,2).The Endocrine Society went on to further define vitamin Dinsufficiency as a level between 21 and 29 ng/mL (2).1. IOM ([place] of Medicine). 2010. Dietary reference intakes for calcium and D. [place]u [place]: The National Academies Press.2. Clifton MF, Robbi NC, Ladarius GONZALES, et al. Evaluation, treatment, and prevention of vitamin D deficiency: an Endocrine Society clinical practice guideline. JCEM. 2010; 96(7):1911-30. :20 HgA1C , Office (85505) HgA1C , Office 5.9 % (Normal) Range: 4.6 - 7.1 :36 Vitamin B-12 (cyanocobalamin) Comments: PATIENT NOT FASTINGPERFORMED BY: [facility] Eeisss8520 Perry RoadDublin [place] [id number] (41572) Vitamin B12 1444 pg/mL (Abnormal) Range: 211-946 :36 CALCIFIDIOL (43757) VIT D 25 Comments: PATIENT NOT FASTINGPERFORMED BY: CB [facility] Idhbqp4021 Perry RoadDublin [place] [id number] Vitamin D, 25-Hydroxy 32.0 ng/mL (Normal) Range: 30.0-100.0 Comments: Vitamin D deficiency has been defined by the [place] of[facility]cine and an Endocrine Society practice guideline as alevel of serum 25-OH vitamin D less than 20 ng/mL (1,2).The Endocrine Society went on to further define vitamin Dinsufficiency as a level between 21 and 29 ng/mL (2).1. IOM ([place] of Medicine). 2010. Dietary reference intakes for calcium and D. [place]u [place]: The National Academies Press.2. Clifton MF, Robbi NC, Ladarius GONZALES, et al. Evaluation, treatment, and prevention of vitamin D deficiency: an Endocrine Society clinical practice guideline. JCEM. 2010; 96(7):1911-30. :36 TSH (65222) Comments: PATIENT NOT FASTINGPERFORMED BY: CB [facility] Sqnqwl0050 Perry RoadDublin [place] [id number] Information: [id number] TSH 0.575 {uIU/mL} (Normal) Range: 0.450-4.500 :51 CBC With Differential/Platelet Comments: PATIENT WAS FASTINGPERFORMED BY: CB [facility] Jfhavp7679 Perry RoadDublin [place] [id number] Information: [id number] Immature Grans (Abs) 0.0 {x10E3/uL} (Normal) Range: [...] 4.14-5.80 WBC 7.3 {x10E3/uL} (Normal) Range: 3.4-10.8 9-Ppb-142992:51 Comp. Metabolic Panel (14) Comments: PATIENT WAS FASTINGPERFORMED BY: LabCoHoboken University Medical CenterYcjvya5674 [facility] [id number] ALT (SGPT) 15 [iU]/L (Normal) Range: 0-44 [...] With LDL/HDL Comments: PATIENT WAS FASTINGPERFORMED BY: LifeNexusCritical access hospital [id number] Ratio LDL/HDL Ratio 2.1 {ratio_units} Range: 0.0-3.6 [...] pg/mL (Normal) Comments: PATIENT WAS FASTINGPERFORMED BY: AgroSavfe70 [facility] [id number] 1:51 Range: 211-946 Vitamin D, 25-Hydroxy 40.7 ng/mL (Normal) Comments: PATIENT WAS FASTINGPERFORMED BY: The Original SoupManMercy Hospital St. John'S Hsklav0078 [facility] [id number] 1:51 Range: 30.0-100.0 Comments: Vitamin D deficiency has been defined by the [place] ofMedicine and an Endocrine Society practice guideline as alevel of serum 25-OH vitamin D less than 20 ng/mL (1,2).The Endocrine Society went on to further define vitamin Dinsufficiency as a level between 21 and 29 ng/mL (2).1. IOM ([place] of Medicine). 2010. Dietary reference intakes for calcium and D. [place]u [place]: The National Academies Press.2. Robbi Morales, Ladarius GONZALES, et al. Evaluation, treatment, and prevention of vitamin D deficiency: an Endocrine Society clinical practice guideline. JCEM. 2010; 96(7):1911-30. 38-Ulq-066682:22 CALCIFIDIOL (44053) VIT D Comments: PATIENT NOT FASTINGPERFORMED BY: The Original SoupManMercy Hospital St. John'S Tgmyrc3982 [facility] [id number] Information: [id number] 25 Vitamin D, 25-Hydroxy 31.8 ng/mL (Normal) Range: 30.0-100.0 Comments: Vitamin D deficiency has been defined by the [place] of[place]icine and an Endocrine Society practice guideline as alevel of serum 25-OH vitamin D less than 20 ng/mL (1,2).The Endocrine Society went on to further define vitamin Dinsufficiency as a level between 21 and 29 ng/mL (2).1. IOM ([place]). 2010. Dietary reference intakes for calcium and D. Cantu [place]: The National Academies Press.2. Robbi Morales, Ladarius GONZALES, et al. Evaluation, treatment, and prevention of vitamin D deficiency: an Endocrine Society clinical practice guideline. JCEM. 2010; 96(7):1911-30. One Specimen SPRCS (Normal) Comments: PATIENT NOT FASTINGPERFORMED BY: [facility] Hospitalton1447 [facility] [id number] BY: [facility]6370 [facility] [id number] 1:25 Identifier Comments: The specimen received included only one patient identifier on theprimary collection container. Our laboratory accrediting agencystates All primary specimen containers must be labeled with 2identifiers at the time of collection. 64-Pbb-565193:25 THIAMINE (B-1) (59650) Comments: PATIENT NOT FASTINGPERFORMED BY: SwippRobert Wood Johnson University Hospital at RahwayWmqxbbsrqy9435 [facility] [id number] BY: The Original SoupManUniversity Of [facility] Health6370 [facility] [id number] Vit. B1, Whole Blood 159.7 nmol/L (Normal) Range: 66.5-200.0 07-Xrx-377462:08 CBC (Auto) (41844) Comments: PATIENT WAS FASTINGPERFORMED BY: [facility]6370 [facility] [id number] Information: [id number] Platelets 202 {x10E3/uL} (Normal) Range: 150-379 RDW 12.6 % (Normal) Range: 12.3-15.4 MCHC 34.3 g/dL (Normal) Range: 31.5-35.7 MCH 31.3 pg (Normal) Range: 26.6-33.0 MCV 91 fL (Normal) Range: 79-97 Hematocrit 44.0 % (Normal) Range: 37.5-51.0 Hemoglobin 15.1 g/dL (Normal) Range: 12.6-17.7 RBC 4.83 {x10E6/uL} (Normal) Range: 4.14-5.80 WBC 8.2 {x10E3/uL} (Normal) Range: 3.4-10.8 84-Rke-090904:08 PTT (Activated Partial Comments: PATIENT WAS FASTINGPERFORMED BY: [facility]6370 [facility] [id number] Thromboplastin Time) (98392) aPTT 31 {sec} (Normal) Range: 24-33 Comments: This test has not been validated for monitoring unfractionated heparintherapy. aPTT-based therapeutic ranges for unfractionated heparintherapy have not been established. For general guidelines onHeparin monitoring, refer to the [facility]Mer[facility] St[facility] Directory of Services. :08 PT (Prothrobim Time) (10867) Comments: PATIENT WAS FASTINGPERFORMED BY: SATHISH [facility]6370 [facility] [id number] Prothrombin Time 10.4 {sec} (Normal) Range: 9.1-12.0 INR 1.0 (Normal) Range: 0.8-1.2 Comments: Reference interval is for non-anticoagulated patients. . Suggested INR therapeutic range for Vitamin K anta gonist therapy: Standard Dose (moderate intensity therapeutic range): 2.0 - 3.0 Higher intensity therapeutic range 2.5 - 3.5 :09 CALCIFIDIOL (48338) VIT D 25 Comments: PATIENT WAS FASTINGPERFORMED BY: SATHISH [facility]6370 [facility] [id number] Vitamin D, 25-Hydroxy 15.8 ng/mL (Abnormal) Range: 30.0-100.0 Comments: Vitamin D deficiency has been defined by the [place] of[place]icine and an Endocrine Society practice guideline as alevel of serum 25-OH vitamin D less than 20 ng/mL (1,2).The Endocrine Society went on to further define vitamin Dinsufficiency as a level between 21 and 29 ng/mL (2).1. IOM ([place] of [place]). 2010. Dietary reference intakes for calcium and D. [place]u [place]: The National Academies Press.2. Clifton MF, Robbi NC, Ladarius GONZALES, et al. Evaluation, treatment, and prevention of vitamin D deficiency: an Endocrine Society clinical practice guideline. JCEM. 2010; 96(7):1911-30. :09 Vitamin B-12 (cyanocobalamin) Comments: PATIENT WAS FASTINGPERFORMED BY: [facility]6370 [facility] [id number] (30648) Vitamin B12 399 pg/mL (Normal) Range: 211-946 17-Nsp-139365:09 METABOLIC PANEL, Comments: PATIENT WAS FASTINGPERFORMED BY: SATHISH LocBoxlin6370 [facility] [id number] Information: [id number],2ND ORDER COMPREHENSIVE (62554) ALT (SGPT) 15 [iU]/L (Normal) Range: 0-44 [...] Glucose, Serum 86 mg/dL (Normal) Range: 65-99 55-Vbe-019470:09 LIPID PANEL (57442) Comments: PATIENT WAS FASTINGPERFORMED BY: SwippHoboken University Medical CenterTntvzg0418 [facility] [id number] LDL/HDL Ratio 2.0 {ratio_units} (Normal) Range: 0.0-3.6 [...] Cholesterol, Total 132 mg/dL (Normal) Range: 100-199 1-Qct-381420:05 Microscopic Examination Comments: PATIENT NOT FASTINGPERFORMED BY: SwippHoboken University Medical CenterQfsowc1882 [facility] [id number] Bacteria Few (Normal) Mucus Threads Present (Normal) Epithelial Cells (non renal) 0-10 {/hpf} (Normal) Range: 0 - 10 RBC 0-2 {/hpf} (Normal) Range: 0 - 2 WBC 6-10 {/hpf} (Abnormal) Range: 0 - 5 5-Tsk-777408:05 URINALYSIS (50333) Comments: PATIENT NOT FASTINGPERFORMED BY: SwippHoboken University Medical CenterXucpkd0083 [facility] [id number] Information: [id number] Microscopic Examination See below: (Normal) Comments: Microscopic was indicated and was performed. Nitrite, Urine Negative (Normal) Urobilinogen,Semi-Qn 1.0 mg/dL (Normal) Range: 0.0-1.9 Bilirubin Negative (Normal) Occult Blood Negative (Normal) Ketones Negative (Normal) Glucose Negative (Normal) Protein Negative (Normal) WBC Esterase Trace (Abnormal) Appearance Clear (Normal) Urine-Color Yellow (Normal) pH 6.0 (Normal) Range: 5.0-7.5 Specific [place] 1.023 (Normal) Range: 1.005-1.030 :12 PSA (PROSTATE SPECIFIC Comments: PATIENT NOT FASTINGPERFORMED BY: The Original SoupManBrandon Ville 6310870 [facility] [id number] Information: [id number] ANTIGEN) (V76.44) Prostate Specific Ag, 0.5 ng/mL (Normal) Range: 0.0-4.0 Serum Comments: Mónica ECLIA methodology. .According to the [place] [employer] Association, Serum PSA shoulddecrease and remain at undetectable levels after radicalprostatectomy. The AUA defines biochemical recurrence as an initialPSA value 0.2 ng/mL or greater followed by a subsequent confirmatoryPSA value 0.2 ng/mL or greater.Values obtained with d ifferent assay methods or kits cannot be usedinterchangeably. Results cannot be interpreted as absolute evidenceof the presence or absence of malignant disease. 45-Ypu-201914:16 HgA1C , Office (35571) HgA1C , Office 5.7 % (Normal) Range: 4.6 - 7.1 72-Dnw-299192:31 Ethanol, Blood Comments: PATIENT WAS FASTINGPERFORMED BY: Swipp[address] [id number] BY: [place] 3314470 [facility] [id number] Inf ormation: [id number] Ethanol 0.094 % (Normal) Comments: Verified by repeat analysis Written Authorization WAR (Normal) Comments: PATIENT WAS FASTINGPERFORMED BY: Swipp[address] [id number] BY: [place] 3314470 [facility] [id number] :31 Comments: Written Authorization Received.Authorization received from PER ORIGINAL ORDER [id number] by Avelina Glez 34-Rio-384308:37 PTT (Activated Partial Comments: PATIENT WAS FASTINGPERFORMED BY: The Original SoupMan[address] [id number] BY: [address] [id number] Thromboplastin Time) (31382) aPTT 31 {sec} (Normal) Range: 24-33 Comments: This test has not been validated for monitoring unfractionated heparintherapy. aPTT-based therapeutic ranges for unfractionated heparintherapy have not been established. For general guidelines onHeparin monitoring, refer to the [facility] Directory of Services. 19-Jjm-288775:37 PT (Prothrobim Time) Comments: PATIENT WAS FASTINGPERFORMED BY: LabCoHoboken University Medical CenterUnersi6606 [facility] [id number] BY: [address] [id number] (60308) Prothrombin Time 10.9 {sec} (Normal) Range: 9.1-12.0 INR 1.0 (Normal) Range: 0.8-1.2 Comments: Reference interval is for non-anticoagulated patients. . Suggested INR therapeutic range for Vitamin K anta gonist therapy: Standard Dose (moderate intensity therapeutic range): 2.0 - 3.0 Higher intensity therapeutic range 2.5 - 3.5 5-Uhu-986863:37 DRUG SCREEN (48275) Comments: PATIENT NOT FASTINGPERFORMED BY: [facility]CoP[facility] [id number] [facility] [id number] Information: [id number] LM Ethanol U, Rich Negative % (Normal) Phencyclidine Negative ng/mL (Normal) Opiates Negative ng/mL (Normal) Comments: Opiate test includes Codeine and Morphine only. Cannabinoid Negative ng/mL (Normal) Cocaine (Metab.) Negative ng/mL (Normal) Benzodiazepines Negative ng/mL (Normal) Barbiturate Negative ng/mL (Normal) Amphetamines, Urine Negative ng/mL (Normal) Comments: Amphetamine test includes Amphetamine and Methamphetamine. :37 T4, FREE (THYROXINE) Comments: PATIENT WAS FASTINGPERFORMED BY: LabCoHoboken University Medical CenterRkaruf7048 [facility] [id number] BY: Lab[address] [id number] (07801) T4,Free(Direct) 1.14 ng/dL (Normal) Range: 0.82-1.77 :38 HgA1C , Office (03284) HgA1C , Office 5.3 % (Normal) Range: 4.6 - 7.1 :38 Blood Glucose , Office (77938) Blood Glucose , Office 87 (Normal) 33-Tnj-253274:38 HgA1C , Office (22820) HgA1C , Office 5.3 % (Normal) Range: 4.6 - 7.1 17-Uab-761082:37 RHEUMATOID FACTOR-QUANT Comments: PATIENT WAS FASTINGPERFORMED BY: SwippAlta Vista Regional HospitalDofvra5874 [facility] [id number] BY: [address] [id number] (41602) RA Latex Turbid. 9.9 {IU/mL} (Normal) Range: 0.0-13.9 07-Ltn-681598:37 CCP ANTIBODY (76775) Comments: PATIENT WAS FASTINGPERFORMED BY: [place] 2257870 [facility] [id number] BY: [address] [id number] CCP Antibodies IgG/IgA 9 {units} (Normal) Range: 0-19 Comments: Negative <20 Weak positive 20 - 39 Moderate positive 40 - 59 Strong positive >59 11-Lfw-932724:37 ALISON (ANTINUCLEAR ANTIBODY) Comments: PATIENT WAS FASTINGPERFORMED BY: Swipp Qlrdmn4618 [facility] [id number] BY: [address] [id number] (74955) ALISON Direct Negative (Normal) 20-Ozi-884705:37 Creatine Kinase Total Comments: PATIENT WAS FASTINGPERFORMED BY: [place] 2257870 [facility] [id number] BY: [address] [id number] (54293) Creatine Kinase,Total,Serum 199 U/L (Normal) Range: 24-204 09-Pdw-510373:37 C-Reactive Protein Comments: PATIENT WAS FASTINGPERFORMED BY: Swipp Hxxotb3653 [facility] [id number] BY: [address] [id number] (59718) C-Reactive Protein, Quant 0.9 mg/L (Normal) Range: 0.0-4.9 :37 Methymalonic Acid, Serum Comments: PATIENT WAS FASTINGPERFORMED BY: [facility] Faamev2731 Perry Roadblin [place] [id number] BY: [address] [id number] (45647) Methylmalonic Acid, Serum 110 nmol/L (Normal) Range: 0-378 Comments: Please note reference interval change :37 Vitamin B-12 Comments: PATIENT WAS FASTINGPERFORMED BY: [facility] Zzmfpx8545 Perry RoadDublin [place] [id number] BY: [address] [id number] (cyanocobalamin) (00746) Vitamin B12 293 pg/mL (Normal) Range: 211-946 :37 CALCIFIDIOL (28728) VIT D Comments: PATIENT WAS FASTINGPERFORMED BY: [facility] Nikglk3522 Perry RoadDublin [place] [id number] BY: [address] [id number] 25 Vitamin D, 25-Hydroxy 12.6 ng/mL (Abnormal) Range: 30.0-100.0 Comments: Vitamin D deficiency has been defined by the [place] of[place]icine and an Endocrine Society practice guideline as alevel of serum 25-OH vitamin D less than 20 ng/mL (1,2).The Endocrine Society went on to further define vitamin Dinsufficiency as a level between 21 and 29 ng/mL (2).1. IOM ([place] of Medicine). 2010. Dietary reference intakes for calcium and D. [place]: The National Academies Press.2. Clifton MF, Robbi NC, Ladarius GONZALES, et al. Evaluation, treatment, and prevention of vitamin D deficiency: an Endocrine Society clinical practice guideline. JCEM. 2010; 96(7):1911-30. :37 CBC with manual diff Comments: PATIENT WAS FASTINGPERFORMED BY: CB [facility] Jcltxf5956 Perry RoadDublin [place] [id number] BY: Swipp[address] [id number] Inf ormation: [id number] (17687) Immature Grans (Abs) 0.0 {x10E3/uL} (Normal) Range: [...] 4.14-5.80 WBC 6.0 {x10E3/uL} (Normal) Range: 3.4-10.8 65-Ean-192128:37 HEPATIC FUNCTION PANEL Comments: PATIENT WAS FASTINGPERFORMED BY: LabCoHoboken University Medical CenterPmbvhm0168 [facility] [id number] BY: Swipp[address] [id number] (53790) Bilirubin, Direct 0.55 mg/dL (Abnormal) Range: 0.00-0.40 26-Anr-453014:37 TSH (THYROID STIMULATING Comments: PATIENT WAS FASTINGPERFORMED BY: Swipp[address] [id number] BY: [address] [id number] HORMONE) (57792) TSH 0.551 {uIU/mL} (Normal) Range: 0.450-4.500 33-Vph-632336:37 Lipid Panel (62407) Comments: PATIENT WAS FASTINGPERFORMED BY: Swipp[address] [id number] BY: [address] [id number] LDL/HDL Ratio 0.8 {ratio_units} (Normal) Range: 0.0-3.6 LDL Cholesterol Calc 99 mg/dL (Normal) Range: 0-99 VLDL Cholesterol Micah 15 mg/dL (Normal) Range: 5-40 HDL Cholesterol 127 mg/dL (Normal) Comments: Results confirmed ondilution.According to ATP-III Guidelines, HDL-C >59 mg/dL is considered anegative risk factor for CHD. Triglycerides 77 mg/dL (Normal) Range: 0-149 Cholesterol, Total 241 mg/dL (Abnormal) Range: 100-199 74-Cyk-326659:37 Metabolic Panel, Comments: PATIENT WAS FASTINGPERFORMED BY: Swipp[address] [id number] BY: The Original SoupMan[address] [id number] Comprehensive (94650) ALT (SGPT) 61 [iU]/L (Abnormal) Range: 0-44 [...] Glucose, Serum 90 mg/dL (Normal) Range: 65-99 26-Enn-549374:33 Ethanol, Blood Comments: PATIENT NOT FASTINGPERFORMED BY: Zigabid J[address]xd380[address] [place] [address] [id number] BY: The Original SoupManBrian Ville [id number] Ethanol 0.085 % (Normal) Comments: Verified by repeat analysis 28-Gya-104512:33 Magnesium (47565) Comments: PATIENT NOT FASTINGPERFORMED BY: Zigabid[address] [id number] BY: [address] [id number] Magnesium, Serum 1.6 mg/dL (Normal) Range: 1.6-2.6 81-Vlw-471399:33 Methymalonic Acid, Serum Comments: PATIENT NOT FASTINGPERFORMED BY: ZigabidHoboken University Medical CenterBsuich186[address] [place] [address] [id number] BY: [address] [id number] (27818) Methylmalonic Acid, Serum 78 nmol/L (Normal) Range: 73-376 Comments: The reference range for methylmalonic acid has been set at +3sd abovethe mean for healthy blood bank donors. In the clinical assessment ofpatients with megaloblastic anemias a cutoff of +3sd provides gr eaterspecificity in the diagnosis of the vitamin deficiency states,despite the sacrifice of some sensitivity. 19-Qox-803673:33 Vitamin B-12 Comments: PATIENT NOT FASTINGPERFORMED BY: Zigabid Jaaqgp9523 [facility] [id number] BY: The Original SoupMan[address] [id number] (cyanocobalamin) (46902) Vitamin B12 449 pg/mL (Normal) Range: 211-946 56-Dwh-852290:33 TSH (20730) Comments: PATIENT NOT FASTINGPERFORMED BY: Wahanda LabFamilyApp Xhfras7163 [facility] [id number] BY: Swipp[address] [id number] TSH 0.654 {uIU/mL} (Normal) Range: 0.450-4.500 59-Eaa-794544:33 METABOLIC PANEL, Comments: PATIENT NOT FASTINGPERFORMED BY: ZigabidCindy V[place] 2257870 [facility] [id number] BY: The Original SoupMan[address] [id number] Inf ormation: [id number] COMPREHENSIVE (84575) ALT (SGPT) 88 [iU]/L (Abnormal) Range: 0-44 [...] Range: 65-99 :49 Blood Glucose , Office (93124) Blood Glucose , Office 90 (Normal) :49 HgA1C , Office (33389) HgA1C , Office 5.3 % (Normal) Range: 4.6 - 7.1 :07 MAGNESIUM (04993) Comments: PATIENT NOT FASTINGPERFORMED BY: Dasientlin6370 [facility] [id number] Magnesium, Serum 1.3 mg/dL (Abnormal) Range: 1.6-2.6 03-Jqt-535326:07 PSA (PROSTATE SPECIFIC Comments: PATIENT NOT FASTINGPERFORMED BY: PlayEnable Wigkkq7984 [facility] [id number] ANTIGEN) (46183) Prostate Specific Ag, 0.8 ng/mL (Normal) Range: 0.0-4.0 Serum Comments: Mónica ECLIA methodology. .According to the [place] [employer], Serum PSA shoulddecrease and remain at undetectable levels after radicalprostatectomy. The AUA defines biochemical recurrence as an initialPSA value 0.2 ng/mL or greater followed by a subsequent confirmatoryPSA value 0.2 ng/mL or greater.Values obtained with d ifferent assay methods or kits cannot be usedinterchangeably. Results cannot be interpreted as absolute evidenceof the presence or absence of malignant disease. 80-Kun-010601:07 Metabolic Panel, Comments: PATIENT NOT FASTINGPERFORMED BY: SATHISH [facility] Kdomsi20[address] [place] [place] [id number] Information: ADD [id number] AND DRAW FEE 99 5760 Comprehensive (85476) ALT (SGPT) 74 [iU]/L (Abnormal) Range: 0-44 [...] Glucose, Serum 98 mg/dL (Normal) Range: 65-99 58-Jkw-44189:00 Urinalysis, Office (74070) UA - BILIRUBIN Negative (Normal) UA - BLOOD Non Hemolyzed Trace (Normal) UA - GLUCOSE Negative (Normal) UA - KETONES Negative mg/dL (Normal) UA - LEUKOCYTE ESTERASE Negative (Normal) UA - NITRITE Negative (Normal) UA - PH 7.0 (Normal) UA - PROTEIN Negative mg/dL (Normal) UA - SPECIFIC GRAVITY 1.015 (Normal) URINE UROBILINGN RICH TIMED Normal mg/dL (Normal) 91-Qjv-302853:32 Potassium Serum (07476) Comments: PATIENT NOT FASTINGPERFORMED BY: The Original SoupManBrandon [place] 6310870 [facility] [id number] Information: [id number] Potassium, Serum 4.0 mmol/L (Normal) Range: 3.5-5.2 10-Tzd-518729:32 Magnesium (21102) Comments: PATIENT NOT FASTINGPERFORMED BY: The Original SoupManBrandon [place] 6310870 [facility] [id number] Magnesium, Serum 1.7 mg/dL (Normal) Range: 1.6-2.6 Magnesium, Serum 1.4 mg/dL Comments: PATIENT WAS FASTINGPERFORMED BY: The Original SoupManBrandon [place] 6310870 [facility] [id number] :32 (Abnormal) Range: 1.6-2.6 Written Authorization WAR (Normal) Comments: PATIENT WAS FASTINGPERFORMED BY: The Original SoupManBrandon [place] 6310870 [facility] [id number] :32 Comments: Written Authorization Received.Authorization received from JEWELL HADLEY [id number] by Kenisha Lozano :32 Metabolic Panel, Basic Comments: PATIENT WAS FASTINGPERFORMED BY: LabBrandon Ville 6310870 [facility] [id number] BY: [place] 610837 [facility] [id number] (92451) Calcium, Serum 9.1 mg/dL (Normal) Range: 8.6-10.2 [...] FUNCTION PANEL Comments: PATIENT WAS FASTINGPERFORMED BY: Urban [employer] [facility] [id number] BY: Swipp[address] [id number] (19134) ALT (SGPT) 72 [iU]/L (Abnormal) Range: 0-55 AST (SGOT) 88 [iU]/L (Abnormal) Range: 0-40 Alkaline Phosphatase, S 74 [iU]/L (Normal) Range: 25-160 Bilirubin, Direct 0.57 mg/dL (Abnormal) Range: 0.00-0.40 Bilirubin, Total 1.3 mg/dL (Abnormal) Range: 0.0-1.2 Albumin, Serum 4.5 g/dL (Normal) Range: 3.6-4.8 Protein, Total, Serum 7.1 g/dL (Normal) Range: 6.0-8.5 :32 CALCIFIDIOL (19361) VIT D Comments: PATIENT WAS FASTINGPERFORMED BY: Dasientlin6370 [facility] [id number] BY: Swipp[address] [id number] 25 Vitamin D, 25-Hydroxy 39.6 ng/mL (Normal) Range: 30.0-100.0 Comments: Vitamin D deficiency has been defined by the [place] of[place]icine and an Endocrine Society practice guideline as alevel of serum 25-OH vitamin D less than 20 ng/mL (1,2).The Endocrine Society went on to further define vitamin Dinsufficiency as a level between 21 and 29 ng/mL (2).1. IOM ([place] of [employer]). 2010. Dietary reference intakes for calcium and D. [place]u [place]: The National Academies Press.2. Clifton MF, Robbi MADRID, Ladarius GONZALES, et al. Evaluation, treatment, and prevention of vitamin D deficiency: an Endocrine Society clinical practice guideline. JCEM. 2010; 96(7):1911-30. :32 Vitamin B-12 (cyanocobalamin) Comments: PATIENT WAS FASTINGPERFORMED BY: [facility] Liowin6721 [facility] [id number] BY: [address] [id number] (14109) Vitamin B12 557 pg/mL (Normal) Range: 211-946 :32 TSH (55129) Comments: PATIENT WAS FASTINGPERFORMED BY: [facility] Vfjvcb1604 [address] [facility] [id number] BY: [address] [id number] TSH 0.507 {uIU/mL} (Normal) Range: 0.450-4.500 :32 T4, FREE (THYROXINE) Comments: PATIENT WAS FASTINGPERFORMED BY: LabFamilyApp Mlocbe3190 [facility] [id number] BY: [address] [id number] (65278) T4,Free(Direct) 1.07 ng/dL (Normal) Range: 0.82-1.77 :32 T3, FREE (TRIDOTHYRONINE) Comments: PATIENT WAS FASTINGPERFORMED BY: [facility] Znefve9651 [facility] [id number] BY: [address] [id number] (04487) Triiodothyronine,Free,Serum 3.4 pg/mL (Normal) Range: 2.0-4.4 :32 Ethanol, Blood Comments: PATIENT WAS FASTINGPERFORMED BY: [facility] Jbzaxp7240 [facility] [id number] BY: ANNA [facility] Eufgocossk5326 [facility] [id number] Ethanol 0.025 % (Normal) Comments: Verified by repeat analysis 04-Apr-20128:30 THYROID IMAGE W/[facility]AKE [facility] Radiology Report See Note (Normal) [...] EDTElectronically Signed RB/RB Professional Interpretation Provided By: [facility], , To consult with a radiologist regarding this report, please call our 49W5vgfkeuh line @ Dictated on 04/04/12951 by Jeffrey Fatima DOTranscribed on 04/05/122125 by ITS IMPORTSign by Jeffrey Acosta DO on 04/05/122126 Sign by: Jeffrey Fatima DO 12-Gtq-847915:50 TSH (58694) Comments: PATIENT NOT FASTINGPERFORMED BY: LabCoHoboken University Medical CenterArogha1709 [facility] [id number] TSH 0.337 {uIU/mL} (Abnormal) Range: 0.450-4.500 :50 T4, FREE (THYROXINE) (66502) Comments: PATIENT NOT FASTINGPERFORMED BY: [facility] Gmtabc4378 [address] [facility] [place] [id number] T4,Free(Direct) 1.14 ng/dL (Normal) Range: 0.82-1.77 :50 T3, FREE (TRIDOTHYRONINE) (64657) Comments: PATIENT NOT FASTINGPERFORMED BY: [facility]6370 [address] [facility] [id number] Triiodothyronine,Free,Serum 3.2 pg/mL (Normal) Range: 2.0-4.4 :50 CALCIFIDIOL (25920) VIT D 25 Comments: PATIENT NOT FASTINGPERFORMED BY: LabUniversity [facility]6370 [facility] [id number] Vitamin D, 25-Hydroxy 57.3 ng/mL (Normal) Range: 30.0-100.0 Comments: Vitamin D deficiency has been defined by the [place] of[place]icine and an Endocrine Society practice guideline as alevel of serum 25-OH vitamin D less than 20 ng/mL (1,2).The Endocrine Society went on to further define vitamin Dinsufficiency as a level between 21 and 29 ng/mL (2).1. IOM ([place] of [employer]). 2010. Dietary reference intakes for calcium and D. Cantu [place]: The National Academies Press.2. Clifton MF, Robbi MADRID, Ladarius GONZALES, et al. Evaluation, treatment, and prevention of vitamin D deficiency: an Endocrine Society clinical practice guideline. JCEM. 2010; 96(7):1911-30. :50 HEPATIC FUNCTION PANEL Comments: PATIENT NOT FASTINGPERFORMED BY: [facility] Iapmfj1059 [facility] [id number] Information: [id number] (35360) ALT (SGPT) 76 [iU]/L (Abnormal) Range: 0-55 Alkaline Phosphatase, S 77 [iU]/L (Normal) Range: 25-160 AST (SGOT) 88 [iU]/L (Abnormal) Range: 0-40 Bilirubin, Direct 0.52 mg/dL Range: 0.00-0.40 (Abnormal) Bilirubin, Total 1.3 mg/dL (Abnormal) Range: 0.0-1.2 Albumin, Serum 4.7 g/dL (Normal) Range: 3.6-4.8 Protein, Total, Serum 7.2 g/dL (Normal) Range: 6.0-8.5 11-Feb-2012 Vitamin D, 25-Hydroxy 5.2 ng/mL (Abnormal) Comments: PERFORMED BY: [facility] [id number] 12:13 Range: 30.0-100.0 Comments: Vitamin D deficiency has been defined by the [place] of[place]icine and an Endocrine Society practice guideline as alevel of serum 25-OH vitamin D less than 20 ng/mL (1,2).The Endocrine Society went on to further define vitamin Dinsufficiency as a level between 21 and 29 ng/mL (2).1. IOM ([place] of [place]). 2010. Dietary reference intakes for [...] Mitochondrial (M2) <20.0 {Units} Comments: PERFORMED BY: MEMSIC6370 [facility] [id number] 12:13 Antibody (Normal) Range: 0.0-20.0 Comments: Negative 0.0 - 20.0 Equivocal 20.1 - 24.9 Positive >24.9 . Mitochondrial (M2) Antibodies are found in 90-96% of patients with primary biliary cirrhosis. 11-Feb-2012 Actin (Smooth Muscle) 8 {Units} (Normal) Comments: PERFORMED BY: [facility] [id number] 12:13 Antibody Range: 0-19 Comments: Negative 0 - 19 Weak positive 20 - 30 Moderate to strong positive >30 . Actin Antibodies are found in 52-85% of patients with autoimmune hepatitis or chronic active hepatitis and in 22% of patients with primary biliary cirrhosis. 11-Feb-2012 Ferritin, Serum 364 ng/mL (Normal) Comments: PERFORMED BY: SwippHoboken University Medical CenterAqkxug8385 [facility] [id number] 12:13 Range: 30-400 31-Poe-138770:13 Antinuclear Antibodies Direct Comments: PERFORMED BY: Swipp Uhkrya1471 [facility] [id number] ALISON Direct Negative (Normal) 83-Kcs-904753:13 Hepatic Function Panel (7) Comments: PERFORMED BY: Swipp Ilfgnm1730 [facility] [id number] ALT (SGPT) 62 [iU]/L (Abnormal) Range: 0-55 Alkaline Phosphatase, S 82 [iU]/L (Normal) Range: 25-160 AST (SGOT) 106 [iU]/L (Abnormal) Range: 0-40 Bilirubin, Direct 0.44 mg/dL (Abnormal) Range: 0.00-0.40 Bilirubin, Total 0.9 mg/dL (Normal) Range: 0.0-1.2 Albumin, Serum 4.5 g/dL (Normal) Range: 3.6-4.8 Protein, Total, Serum 7.3 g/dL (Normal) Range: 6.0-8.5 66-Lny-048428:13 Thyroxine (T4) Free, Direct, Comments: PERFORMED BY: SwippHoboken University Medical CenterLmtmrw1753 [facility] [id number] S T4,Free(Direct) 1.10 ng/dL Range: 0.82-1.77 (Normal) 11-Feb-2012 Triiodothyronine,Free,Seru 3.4 pg/mL (Normal) Comments: PERFORMED BY: The Original SoupManUniversity [facility] Health6370 [facility] [id number] 12:13 m Range: 2.0-4.4 11-Feb-2012 TSH 0.371 {uIU/mL} Comments: PERFORMED BY: [facility]6370 [facility] [id number] 12:13 (Abnormal) Range: 0.450-4.500 57-Qof-486334:04 Thyroxine (T4) Free, Comments: PATIENT WAS FASTINGPERFORMED BY: [facility]6370 [facility] [id number] Information: [id number] Direct, S T4,Free(Direct) 1.25 ng/dL Range: 0.82-1.77 (Normal) 07-Dec-2011 Triiodothyronine,Free,Seru 3.1 pg/mL (Normal) Comments: PATIENT WAS FASTINGPERFORMED BY: [facility]6370 [facility] [id number] 13:04 m Range: 2.0-4.4 07-Dec-2011 Written Authorization WAR (Normal) Comments: PATIENT WAS FASTINGPERFORMED BY: [facility]6370 [facility] [id number] 13:04 Comments: Written Authorization Received.Authorization received from JEWELL HADLEY [id number] by Margaret Zuniga 83-Qts-971138:04 TSH (75661) Comments: PATIENT WAS FASTINGPERFORMED BY: [facility]6370 [facility] [id number] TSH 0.290 {uIU/mL} (Abnormal) Range: 0.450-4.500 85-Kbs-907405:04 CALCIFIDIOL (30249) VIT D 25 Comments: PATIENT WAS FASTINGPERFORMED BY: [facility]6370 [facility] [id number] Vitamin D, 25-Hydroxy 7.2 ng/mL (Abnormal) Range: 30.0-100.0 Comments: Vitamin D deficiency has been defined by the [place] of[place]icine and an Endocrine Society practice guideline as alevel of serum 25-OH vitamin D less than 20 ng/mL (1,2).The Endocrine Society went on to further define vitamin Dinsufficiency as a level between 21 and 29 ng/mL (2).1. IOM ([place] of [place]). 2011. Dietary reference intakes for calcium and D. [place]u [place]: The National Academies Press.2. Clifton MF, Robbi MADRID, Ladarius GONZALES, et al. Evaluation, treatment, and prevention of vitamin D deficiency: an Endocrine Society clinical practice guideline. JCEM. 2010; 96(7):1911-30. 97-Rbm-286791:04 Vitamin B-12 (cyanocobalamin) Comments: PATIENT WAS FASTINGPERFORMED BY: [facility] Eruvcl0599 [facility] [id number] (96485) Vitamin B12 920 pg/mL (Normal) Range: 211-946 09-Klg-822561:04 METABOLIC PANEL, COMPREHENSIVE Comments: PATIENT WAS FASTINGPERFORMED BY: [facility] Imazwk7449 [facility] [id number] (22564) ALT (SGPT) 101 [iU]/L (Abnormal) Range: 0-55 [...] Glucose, Serum 85 mg/dL (Normal) Range: 65-99 05-Vyn-978948:04 LIPID PANEL (71661) Comments: PATIENT WAS FASTINGPERFORMED BY: AgroSavfe70 [facility] [id number] LDL Cholesterol Calc 79 mg/dL (Normal) Range: 0-99 LDL/HDL Ratio 0.5 {ratio_units} (Normal) Range: 0.0-3.6 VLDL Cholesterol Micah 11 mg/dL (Normal) Range: 5-40 HDL Cholesterol 156 mg/dL (Normal) Comments: Results confirmed ondilution.According to ATP-III Guidelines, HDL-C >59 mg/dL is considered anegative risk factor for CHD. Triglycerides 57 mg/dL (Normal) Range: 0-149 Cholesterol, Total 246 mg/dL (Abnormal) Range: 100-199 28-Qwq-512181:04 CBC WITH MANUAL DIFF Comments: PATIENT WAS FASTINGPERFORMED BY: PlayEnable Lrglvw1430 [facility] [id number] Information: [id number] (55360) Immature Grans (Abs) 0.0 {x10E3/uL} (Normal) Range: [...] 4.10-5.60 WBC 5.7 {x10E3/uL} (Normal) Range: 4.0-10.5 75-Aje-18784:56 BRAIN/HEAD W/WO CONTRAST Radiology Report See Note [...] scan of the brain. Dictated on 05/27/11 0118 by Yasmeen ALBARADO,GabrieleTranscribed on 05/27/11 1332 by ITS IMPORTSign by Maxi Arana MD on 1333 Sign by: Maxi Arana MD 12-Oim-37969:00 LIVER Radiology Report See Note (Normal) Comments: [...] size of the right kidney. The right mltfosylnpueby52.4 cm. Normal renal cortex. The right cortex measures 1.7 cm. Thereisno de monstrated renal mass or cyst. There are no demonstrated renalcalculi. There is no hydronephrosis. There is no ascites. IMPRESSION:Normal abdominal ultrasound examination. Dictated on 04/21/11 082 9 by Va Arana MDranscribed on 04/21/11 1107 by ITS IMPORTSign by Maxi Arana MD on 04/21/11 1108 Sign by: Maxi Arana MD 59-Iml-54729:16 HEPATIC FUNCTION PANEL Comments: PATIENT NOT FASTINGPERFORMED BY: LabCoHoboken University Medical CenterHbuevs0317 [facility] [id number] Information: [id number] (84309) Alkaline Phosphatase, S 69 [iU]/L (Normal) Range: 25-160 ALT (SGPT) 142 [iU]/L (Abnormal) Range: 0-55 AST (SGOT) 171 [iU]/L (Abnormal) Range: 0-40 Bilirubin, Direct 0.43 mg/dL (Abnormal) Range: 0.00-0.40 Bilirubin, Total 0.8 mg/dL (Normal) Range: 0.0-1.2 Albumin, Serum 4.7 g/dL (Normal) Range: 3.6-4.8 Protein, Total, Serum 7.2 g/dL (Normal) Range: 6.0-8.5 :16 HEPATITIS PANEL (40587) Comments: PATIENT NOT FASTINGPERFORMED BY: Swipp[address] [id number] Hep C Virus Ab <0.1 {s/co_ratio} (Normal) [...] (Normal) Hep A Ab, IgM Negative (Normal) 20-Sdw-966692:05 CBC With Differential/Platelet Comments: PATIENT WAS FASTINGPERFORMED BY: Swipp[address] [id number] BY: [address] [id number] Immature Grans (Abs) 0.0 {x10E3/uL} (Normal) Range: [...] 4.10-5.60 WBC 7.7 {x10E3/uL} (Normal) Range: 4.0-10.5 41-Dgq-274364:05 Comp. Metabolic Panel Comments: PATIENT WAS FASTINGPERFORMED BY: CB [facility] [address] [id number] BY: BN [facility] [address] [id number] (14) Alkaline Phosphatase, S 74 [iU]/L (Normal) [...] % (Normal) Comments: PATIENT WAS FASTINGPERFORMED BY: [employer] [facility] [id number] BY: Swipp[address] [id number] 3:05 Range: 4.8-5.6 Comments: Increased risk for diabetes: 5.7 - 6.4 Diabetes: >6.4 Glycemic control for adults with diabetes: <7.0 97-Eyl-331900:05 Lipid Panel With LDL/HDL Comments: PATIENT WAS FASTINGPERFORMED BY: AgroSavfe70 [facility] [id number] BY: Swipp[address] [id number] Ratio LDL Cholesterol Calc 89 mg/dL (Normal) Range: 0-99 LDL/HDL Ratio 0.7 {ratio_units} (Normal) Range: 0.0-3.6 VLDL Cholesterol Micah 18 mg/dL (Normal) Range: 5-40 Cholesterol, Total 241 mg/dL (Abnormal) Range: 100-199 HDL Cholesterol 134 mg/dL (Normal) Comments: Results confirmed ondilution.According to ATP-III Guidelines, HDL-C >59 mg/dL is considered anegative risk factor for CHD. Triglycerides 92 mg/dL (Normal) Range: 0-149 :05 Panel [id number] Comments: PATIENT WAS FASTINGPERFORMED BY: Zigabid [employer] [facility] [id number] BY: [address] [id number] HIV 1/O/2 Abs, Non Reactive Qual (Normal) HIV 1/O/2 <1.00 (Normal) Comments: Index Value: Specimen reactivity relative to the negative cutoff. Abs-Index Value : TSH 0.699 {uIU/mL} Comments: PATIENT WAS FASTINGPERFORMED BY: [employer] [facility] [id number] BY: [address] [id number] (Normal) Range: 0.450-4.500 :05 Vitamin B1 (Thiamine), Comments: PATIENT WAS FASTINGPERFORMED BY: [employer] [id number] [facility] [id number] BY: [address] [id number] Blood Vit. B1, Whole Blood 150.6 nmol/L Range: 66.5-200.0 (Normal) Vitamin B12 >1999 pg/mL Comments: PATIENT WAS FASTINGPERFORMED BY: [employer] [id number] [facility] [id number] BY: [address] [id number] :05 (Abnormal) Range: 211-946 73-Wrh-22481:10 CBCD,SMEAR DIFF BAND 2 % (Normal) Range: [...] 11.6-14.6 WBC 5.0 K/mm3 (Normal) Range: 4.4-11.0 13-Hlz-35919:10 COMP METABOLIC ALK P 72 U/L (Normal) [...] CHOL 200 mg/dL (Normal) Comments: <200 mg/dL Dfdhdzgbb135-029 mg/dL Borderline>240 mg/dL High Risk HDL 87 [...] Range: 0.358-3.74 0 (Normal) :1 VIT D,25 48153 20.5 ng/mL (Abnormal) Range: 32.0-100.0 0 Comments: Recent studies consider the lower limit of 32.0 ng/mL to nati threshold for optimal health.Edwin ESPINOZA. J Nutr. 2004;135(2):317-22.Performed at: [place] [address] Director: Adrienne Gil MD, Phone: [phone] :[phone] VITAMIN B12 1239 pg/mL (Normal) Range: 254-1320 0 Comments: There is a low frequency possibility that high titers ofintrinsic blocking antibodies may not be completelyinactivated during the reaction pretreatment stepof this testing method. If test results are in conflictwith the clinical diagnosis, patient should be testedfor the presence of intrinsic factor blocking antibodies. 33-Qew-425416:24 Urinalysis, Office (04956) UA - LEUKOCYTE Negative (Normal) ESTERASE UA [...] {units} (Normal) Comments: PATIENT WAS FASTINGPERFORMED BY: [address] [id number] Range: 0-19 Comments: Negative <20 Weak positive 20 - 39 Moderate positive 40 - 59 Strong positive >59 : Comment: SPRCS (Normal) Comments: PATIENT WAS FASTINGPERFORMED BY: [address] [id number] Comments: Effective August 25, 2009 order code 310512 CCP IgGAntibodies has been replaced due to an updated reagentversion 3.1. For this reason [facility] has provided youwith a new order code 458129 CCP Antibodies IgG/IgA. :29 PSA (PROSTATE SPECIFIC Comments: PATIENT WAS FASTINGPERFORMED BY: [address] [id number] ANTIGEN) (V76.44) Prostate Specific Ag, 1.0 ng/mL (Normal) Range: 0.0-4.0 Serum Comments: Mónica ECLIA methodology. .According to the [place] [employer], Serum PSA shoulddecrease and remain at undetectable levels after radicalprostatectomy. The AUA defines biochemical recurrence as an initialPSA value 0.2 ng/mL or greater followed by a subsequent confirmatoryPSA value 0.2 ng/mL or greater.Values obtained with d ifferent assay methods or kits cannot be usedinterchangeably. Results cannot be interpreted as absolute evidenceof the presence or absence of malignant disease. :29 LIPID PANEL (81850) Comments: PATIENT WAS FASTINGPERFORMED BY: [address] [id number] Cholesterol, Total 240 mg/dL (Abnormal) Range: 100-199 HDL Cholesterol 85 mg/dL (Normal) Comments: According to ATP-III Guidelines, HDL-C >59 mg/dL is considered anegative risk factor for CHD. LDL Cholesterol Calc 142 mg/dL (Abnormal) Range: 0-99 LDL/HDL Ratio 1.7 {ratio_units} (Normal) Range: 0.0-3.6 Triglycerides 63 mg/dL (Normal) Range: 0-149 VLDL Cholesterol Micah 13 mg/dL (Normal) Range: 5-40 :29 C-REACTIVE PROTEIN (80204) Comments: PATIENT WAS FASTINGPERFORMED BY: [facility] [id number] C-Reactive Protein, Quant 0.8 mg/L (Normal) Range: 0.0-4.9 :29 SED RATE ERYTHROCYTE (41497) Comments: PATIENT WAS FASTINGPERFORMED BY: [facility] [id number] Sedimentation Rate-Westergren 2 mm/h (Normal) Range: 0-20 :29 ALISON (ANTINUCLEAR ANTIBODY) Comments: PATIENT WAS FASTINGPERFORMED BY: [facility] [id number] (29633) ALISON Direct Negative (Normal) :29 CBC WITH MANUAL DIFF (56535) Comments: PATIENT WAS FASTINGClinical Information: [id number] PERFORMED BY: [facility] [id number] Baso (Absolute) 0.1 {x10E3/uL} (Normal) Range: 0.0-0.2 [...] PANEL, COMPREHENSIVE Comments: PATIENT WAS FASTINGPERFORMED BY: [facility] [id number] (25345) A/G Ratio 1.5 (Normal) Range: 1.1-2.5 Albumin, [...] mmol/L (Normal) Range: 135-145 :29 RHEUMATOID FACTOR-QUANT (24332) Comments: PATIENT WAS FASTINGPERFORMED BY: [facility] [address] [id number] RA Latex Turbid. 8.4 {IU/mL} (Normal) Range: 0.0-13.9 :29 TSH (83976) Comments: PATIENT WAS FASTINGPERFORMED BY: [facility] [address] [id number] TSH 0.661 {uIU/mL} (Normal) Range: 0.450-4.500 54-Pzy-198311:30 RIBS,UNI,MIN 3V,W/PA CHEST(MT) Radiology Report See Note (Normal) Comments: Exam Number: [id number] FRONTAL CHEST AND LEFT RIBS CLINICAL HISTORY [...] (PROSTATE SPECIFIC Comments: PATIENT NOT FASTINGPERFORMED BY: [facility] [id number] ANTIGEN) (V76.44) Prostate Specific Ag, Serum 1.6 ng/mL (Normal) Range: 0.0-4.0 Comments: ZeccoIA methodology. .According to the [place] [employer], PSA should beundetectable after radical prostatectomy. A PSA of less than0.5 ng/mL (or undetectable) is not likely to be associated withdisease recurrence within five years of treatment.Values obtained with different assay methods or kits cannot be usedinterchang eably. Results cannot be interpreted as absolute evidenceof the presence or absence of malignant disease. :47 TSH (25017) Comments: PATIENT NOT FASTINGPERFORMED BY: [facility] [address] [id number] TSH 0.463 {uIU/mL} (Normal) Range: 0.450-4.500 :47 CBC (Auto) (89612) Comments: PATIENT NOT FASTINGPERFORMED BY: [facility] [id number] Hematocrit 47.6 % (Normal) Range: 36.0-50.0 Hemoglobin [...] PATIENT NOT FASTINGClinical Information: ADD DRAW FEE 471845 ADD J 81096 PERFORMED BY: [facility] [address] [id number] (08176) A/G Ratio 1.4 (Normal) Range: 1.1-2.5 Albumin, [...] mmol/L (Normal) Range: 135-145 :47 Lipid Panel (40388) Comments: PATIENT NOT FASTINGPERFORMED BY: [employer] [facility] [id number] Cholesterol, Total 199 mg/dL (Normal) Range: 100-199 [...] (Normal) Range: 5-40 :47 Methylmalonic acid, serum 46096 Comments: PATIENT NOT FASTINGPERFORMED BY: [employer] [address] [id number] Methylmalonic Acid, Serum 225 nmol/L (Normal) Range: [...] B-12 (cyanocobalamin) Comments: PATIENT NOT FASTINGPERFORMED BY: [employer] [address] [id number] (60528) Vitamin B12 256 pg/mL (Normal) Range: 211-911 23-Kvd-658680:30 Metabolic Panel, Basic Comments: PATIENT NOT FASTINGClinical Information: ADD DRAW FEE 097893 ADD J 20336 PERFORMED BY: [facility]ippAl[facility] Regional HospitalMubusq2014 [facility] [id number] (29082) BUN 13 mg/dL (Normal) Range: 5-26 BUN/Creatinine [...] on 'Glom Filt Rate, Est' and 'If -Citizen [place]' will be changing to >59 mL/min/1.73. Glucose, Serum 86 mg/dL (Normal) Range: 65-99 If -[place]izen [place] >59 mL/min/1.73 Range: 60-137 (Normal) Comments: Note: [...] 3.5-5.1 NA 136 mmol/L (Normal) Range: 136-145 44-Ulq-34422:01 CBCD BASO% 0.5 % (Normal) Range: 0-1 [...] Report See Note (Normal) Comments: Exam Number: [id number] PA AND LATERAL CHEST HISTORY Being done [...] (PROSTATE SPECIFIC Comments: PATIENT WAS FASTINGPERFORMED BY: [employer] [id number] [facility] [id number] ANTIGEN) Prostate-Specific Ag, Serum 0.5 ng/mL (Normal) Range: 0.0-4.0 Comments: Cathie [employer] [facility] methodology :28 Vitamin B-12 (cyanocobalamin) Comments: PATIENT WAS FASTINGPERFORMED BY: [employer] Dwmvlj2928 [facility] [id number] (22017) Vitamin B12 283 pg/mL (Normal) Range: 211-911 23-Bow-09855:28 C-REACTIVE PROTEIN (37201) Comments: PATIENT WAS FASTINGPERFORMED BY: [employer] Ufxwoz7637 [facility] [id number] C-Reactive Protein, Quant 0.6 mg/L (Normal) Range: 0.0-4.9 :28 SED RATE ERYTHROCYTE (51483) Comments: PATIENT WAS FASTINGPERFORMED BY: [place] [id number] [facility] [id number] Sedimentation Rate-Westergren 2 mm/h (Normal) Range: 0-20 :28 RHEUMATOID FACTOR-QUANT (32976) Comments: PATIENT WAS FASTINGPERFORMED BY: [address] [id number] RA Latex Turbid. 5.2 {IU/mL} (Normal) Range: 0.0-13.9 :28 TSH (87431) Comments: PATIENT WAS FASTINGPERFORMED BY: [address] [id number] TSH 0.436 {uIU/mL} (Normal) Range: 0.350-5.500 :28 ALISON (ANTINUCLEAR ANTIBODY) Comments: PATIENT WAS FASTINGPERFORMED BY: [address] [id number] (06079) Antinuclear Antibodies Direct 23 AU/mL (Normal) Range: 0-99 Comments: Negative <100 Equivocal 100 - 120 Positive >120 : CBC WITH MANUAL DIFF (62239) Comments: PATIENT WAS FASTINGClinical Information: ADD DRAW FEE 002274 ADD J 62979 PERFORMED BY: [address] [id number] Baso (Absolute) 0.0 {x10E3/uL} (Normal) Range: 0.0-0.2 [...] 11.7-15.0 WBC 5.8 {x10E3/uL} (Normal) Range: 4.0-10.5 78-Ffj-08189:28 METABOLIC PANEL, COMPREHENSIVE Comments: PATIENT WAS FASTINGPERFORMED BY: LabCoHob[facility] University Medical CenterEwqopi5256 [facility] [id number] (03643) A/G Ratio 1.6 (Normal) Range: 1.1-2.5 Albumin, [...] Report See Note (Normal) Comments: Exam Number: [id number] 2 VIEWS OF CHEST PA and lateral [...] (Abnormal) Range: 211-911 51 Comments: Performed At: [address] [id number] CBC HCT 46.1 % (Normal) Range: [...] was performed using the TPSA method for theDimensiWagaduu chemistry system.Values obtained with different assay methods [...] pg/mL (Abnormal) Range: 211-911 Comments: Performed At: [address] [phone] Plan of Care Name Dates Details Instructions [...] up in 2 weeks with [facility] Indication: Smoker Smoker : Follow [...] Planned Observations CBC, Platelets & Auto Diff (91410)Indication: Testosterone deficiency On: : Request Comments: to be done March 2017 HEPATIC FUNCTION PANEL (52767)Indication: Testosterone deficiency On: : Request Comments: to be done March 2017 Metabolic Panel, Comprehensive (22680)Indication: Testosterone deficiency On: : Request Comments: to be done in March 2017 MICROALBUMIN: CREATININE RATIO (27390) AND (69358)Indication: Hypertension On: 14-Xbl-919619:04 Request URINALYSIS (60402)Indication: Hypertension On: 99-Jbk-050794:02 Request Urinalysis, Office (48986)Indication: Preop examination On: 64-Cdz-984498:45 Request HgA1C , Office (37297)Indication: Impaired fasting glucose On: 57-Zyj-477850:59 Request MICROALBUMIN: CREATININE RATIO (63920) AND (15917)Indication: Hypertension On: 01-Dec-20158:35 Request Urinalysis, Office (58009)Indication: Abdominal wall pain On: 22-Eir-016421:30 Request Vitamin B-12 (cyanocobalamin) (69322)Indication: B12 deficiency On: :37 Request CALCIFIDIOL (78157) VIT D 25Indication: Vitamin D deficiency, unspecified On: :37 Request METABOLIC PANEL, COMPREHENSIVE (38281)Indication: Hypertension On: :37 Request LIPID PANEL (03109)Indication: Hypertension On: :37 Request CBC with auto diff (10807)Indication: Hypertension On: :37 Request CALCIFEDIOL (87233)Indication: Vitamin D deficiency, unspecified On: 14-Gba-155258:58 Request HgA1C , Office (84151)Indication: Impaired fasting glucose On: :21 Request Blood Glucose , Office (51253)Indication: Impaired fasting glucose On: :21 Request METABOLIC PANEL, COMPREHENSIVE (71264)Indication: Hypertension On: 62-Wle-775909:15 Request LIPID PANEL (62334)Indication: Hypertension On: 89-Gmp-369853:15 Request CALCIFEDIOL (08699)Indication: Vitamin D deficiency, unspecified On: 7-Eci-617221:46 Request ALCOHOL, ETHYL (BLOOD) (23561)Indication: Alcohol abuse, continuous drinking behavior On: 49-Rgm-725644:45 Request ALCOHOL, ETHYL (BLOOD) (69772)Indication: Other and unspecified alcohol dependence, unspecified drinking behavior On: 96-Npg-331769:19 Request CALCIUM SERUM (71824)Indication: Dysuria On: 94-Yyg-24418:42 Request Potassium Serum (95487)Indication: Hypopotassemia On: 33-Ogs-178538:36 Request Comments: recheck in 2 weeks Magnesium (46603)Indication: Hypopotassemia On: 74-Jth-641860:36 Request Comments: re check in 2 weeks MAGNESIUM (06573)Indication: Other symptoms and signs involving general sensations and perceptions On: 7-Cat-665838:19 Request Potassium Serum (58003)Indication: Hypopotassemia On: 1-Sai-176850:29 Request Magnesium (49803)Indication: Hypopotassemia On: 9-Kzg-391812:29 Request Phosphorus (73789)Indication: Hypopotassemia On: 9-Mxi-563899:29 Request Metabolic Panel, Basic (65311)Indication: Hypopotassemia On: 6-Lhk-588725:19 Request TSH (66296)Indication: Abnormal TSH On: 47-Toc-309797:45 Request ASM (ANTI SMOOTH MUSCLE ANTIBODY) (90176)Indication: Elevated LFTs On: 51-Kko-065883:05 Request CALCIFIDIOL (40919) VIT D 25Indication: Vitamin D deficiency, unspecified On: 20-Qcl-472745:01 Request Metabolic Panel, Comprehensive (25081)Indication: Hypertension On: 46-Qzc-488142:47 Request Drug Screen (Urine 6-Panel) (55459)Indication: Other and unspecified alcohol dependence, unspecified drinking behavior On: 29-Ymx-271114:25 Request THIAMINE (B-1) (41056)Indication: Other and unspecified alcohol dependence, unspecified drinking behavior On: 29-Bns-630952:24 Request CBC (Auto) (58728)Indication: Fatigue On: :22 Request Lipid Panel (23290)Indication: Hypertension On: :22 Request Metabolic Panel, Comprehensive (10611)Indication: Fatigue On: :22 Request TSH (09693)Indication: Anxiety On: :22 Request Vitamin B-12 (cyanocobalamin) (14106)Indication: B12 deficiency On: : Request Hemoglobin Glyclated (HGB A1C) (39946)Indication: Candidiasis, mouth On: : Request HIV-1 ANTIBODY (71585)Indication: Candidiasis, mouth On: : Request Vitamin B-12 (cyanocobalamin) (79099)Indication: B12 deficiency On: :26 Request Metabolic Panel, Comprehensive (95077)Indication: Impaired fasting glucose On: :26 Request CALCIFEDIOL (57429)Indication: Vitamin D deficiency, unspecified On: :25 Request METABOLIC PANEL, COMPREHENSIVE (15620)Indication: Hypertension On: 53-Ohb-579808:20 Request LIPID PANEL (80057)Indication: Hypertension On: 68-Hyy-470551:20 Request CBC WITH MANUAL DIFF (33941)Indication: Hypertension On: 47-Wfr-583575:20 Request Vitamin B-12 (cyanocobalamin) (17616)Indication: B12 deficiency On: 00-Kkq-029264:20 Request CALCIFIDIOL (33691) VIT D 25Indication: Fatigue On: 47-Ced-370233:19 Request TSH (96826)Indication: Fatigue On: 87-Evg-511364:19 Request Metabolic Panel, Comprehensive (00724)Indication: Impaired fasting glucose On: 03-Tfh-388883:20 Request Comments: in three months (approximately) Metabolic Panel, Basic (60644)Indication: Hypertension On: :19 Request Comments: 2 weeks CBC (Auto) (56771)Indication: Alcohol abuse, continuous drinking behavior On: :17 Request Lipid Panel (22564)Indication: Impaired fasting glucose On: :16 Request Comments: in three months (approximately) Methylmalonic acid, serum 07018Kvchdzzgdn: B12 deficiency On: :16 Request Comments: in three months (approximately) Vitamin B-12 (cyanocobalamin) (95382)Indication: B12 deficiency On: 95-Qst-326759:16 Request Comments: in three months (approximately) CCP ANTIBODY (38131)Indication: Pain in unspecified joint On: :56 Request HgA1C , Office (50598)Indication: Impaired fasting glucose On: 69-Ytz-733602:40 Request CARINE CULTURE-STOOL (16464)Indication: Diarrhea On: :52 Request C-DIFFICILE, STOOL (63714)Indication: Diarrhea On: :52 Request LEUKOCYTE COUNT, FECAL (56731)Indication: Diarrhea On: :52 Request OCCULT BLOOD FECES SCREEN (28388)Indication: Diarrhea On: :52 Request OVA & PARASITE DIR SMEAR (66023)Indication: Diarrhea On: :52 Request Metabolic Panel, Basic (63317)Indication: Hypertension On: :05 Request Metabolic Panel, Basic (68355)Indication: Hypertension On: :41 Request Vitamin B-12 (cyanocobalamin) (79165)Indication: B12 deficiency On: :41 Request Comments: 8 weeks CBC (Auto) (44373)Indication: Diarrhea On: :07 Request Metabolic Panel, Basic (41551)Indication: Diarrhea On: 3-Jin-113743:07 Request VITAMIN B-12 (CYANOCOBALAMIN) (83815)Indication: B12 deficiency On: 0-Qnj-814854:04 Request Comments: methylmalonic acid CARINE CULTURE-STOOL (03338)Indication: Diarrhea On: 8-Nnv-253560:58 Request LEUKOCYTE COUNT, FECAL (14138)Indication: Diarrhea On: 6-Gum-602175:58 Request C.Difficile, Stool (54490)Indication: Diarrhea On: 0-Rwl-570409:58 Request OVA & PARASITE DIR SMEAR (85730)Indication: Diarrhea On: 6-Sgs-830374:58 Request Vitamin B-12 (cyanocobalamin) (73848)Indication: B12 deficiency On: 4-Izh-756326:53 Request Planned Procedures Flu Vaccine (Quadrivalent) On: 08-Aug-2018 Intent 91090Oe: Lauryn Hanson Comments: Lot #[id number]-L dltd, IMDose prefilled syringegiven by:LAMAR Sullivan reviewed and ABN signed ELECTROCARDIOGRAM, COMPLETE On: 17-May-2018 Intent (ECG) (46509)By: Devaughn PASTOR, Comments: nsr no acute chg Jazmine ATTENDED SLEEP STUDY (22803)By: On: 08-May-2018 Intent Jailene Mayfield CNP, CNP, Mary E SPIROMETRY (32201)By: Tran On: 06-Jan-2018 Intent Jailene LOTT CNP, Mary E Comments: normal Aerosol Treatment (84607)By: On: 19-Dec-2017 Intent Sue Rooney Comments: Lungs clear after aerosol treatment. CHEST XRAY, PA & LATERAL On: 19-Dec-2017 Intent (40020)By: Sue Rooney Radiology - Lumbar SpineBy: On: 19-Dec-2017 Intent Sue Rooney Flu Vaccine (Quadrivalent) On: 20-Sep-2017 Intent 00250To: Jailene Mayfield CNP Comments: QUAD flu 0.5ml injectionlot number: [id number]: 02/2018R Deltoid IMpt tolerated wellAD OFFICE SERVICES SPECIALIST Jailene Mayfield CNP Nuclear Stress Test/Stress On: 25-May-2017 Intent SPECT/AdenosineBy: Jailene Mayfield CNP, CNP, Mary E Echo CompleteBy: Tran LOTT, On: 25-May-2017 Intent Jailene Puri CNP Holter Monitor 24 hrsBy: Tran On: 16-May-2017 Intent Jailene LOTT CNP, Mary E ELECTROCARDIOGRAM, COMPLETE On: 16-May-2017 Intent (ECG) (46881)By: Tran LOTT, Comments: sinus bradicardia and widening QT Jailene Vega Tran LOTT Jailene Vega Ultrasound - ThyroidBy: Nicholasa On: 29-Mar-2017 Intent KAYLIE Jailene Vega Tran LOTT Jailene Vega Flu Vaccine (Quadrivalent) On: 12-Jan-2017 Intent 05814Xv: Tran LOTT [place] Comments: Lot:[id number]:05/27/17Dose:0.5mLRoute:IMSite:L DltdGiven By:JOHANNE signed Tran LOTT [place] PNEUM VAC ADLT/IMUMNOSPR, On: 12-Jan-2017 Intent SBC/INTRM (98275)By: Tran LOTT, Comments: Lot:[id number]:04/16/18Dose:0.5mgRoute:imSite:r armGiven By:JOHANNE signed AureliaGary Mayfield CNP [facility] Radiology - Chest- PA and On: 02-Dec-2016 Intent LatBy: Jazmine Cantor DO Spirometry (83054)By: Devaughn On: 02-Dec-2016 Jazmine Lowry DO Comments: obstructive pattern Aerosol Treatment (77030)By: On: 02-Dec-2016 Intent Jazmine Cantor DO Comments: more a/e but still inspir and exp noise - wheeze and rhonchi Solu- Medrol Injection, 125mg On: 02-Dec-2016 Intent (J2930)By: Jazmine Cantor DO Comments: solumedrollot:[id number]:05/16site:rt glutroute:IMdose:125mgD.ANN MARIE Gonzáles CHEST XRAY, PA & LATERAL On: 28-Sep-2016 Intent (96457)By: Jailene Mayfield CNP, CNP [place] Radiology - ChestBy: Tran LOTT, On: 21-Sep-2016 Intent AureliaGary Mayfield CNP [place] ELECTROCARDIOGRAM, COMPLETE On: 21-Sep-2016 Intent (ECG) (13260)By: Esequiel LANGSTON, Comments: sinus rthym Safia Ear Irrigation (92003)By: On: 19-Jul-2016 Intent Tran LOTT AureliaGary Mayfield CNP [place] Wax CurettesBy: Waqar LABARADO, On: 06-Feb-2016 Intent Jewell Kendall Ear Irrigation (16059)By: On: 06-Feb-2016 Intent Jewell Hadley MD EKG (42112)By: Waqar ALBARADO, On: 17-Jun-2015 Intent Jewell Kendall Comments: see scanned document of test done to see results reviewed today with patient VITAMIN B12 INJECTION On: 27-Mar-2015 Intent (65737)By: Bethany Rehman Comments: Vitaman b12 Lot:[id number]:02/10Route:IMSite:L DeltoidDose: 1 mLgiven by:ANS INJECTION, VITAMIN B-12 On: 27-Mar-2015 Intent CYANOCOBALAMIN, UP TO 1000 MCG (Special Coverage Instructions Apply. See CIM: 45-4 and MCM: 2048) (J3420)By: Jewell Hadley MD Flu Vaccine (Quadrivalent) On: 09-Oct-2014 Intent 91088Gg: Jewell Hadley MD ADMINISTRATION OF INFLUENZA On: 09-Oct-2014 Intent VIRUS VACCINE (G0008)By: Jewell Hadley MD PHYSICAL THERAPY EVALUATION On: 17-May-2014 Intent (06619)By: Jailene Mayfield CNP, CNP, Mary E Radiology - Cervical SpineBy: On: 17-May-2014 Intent Jaielne Mayfield CNP, CNP, Mary E Eprescribed prescriptions On: 26-Mar-2014 Intent (G8553)By: Jewell Hadley MD IMMUNIZATION ADMIN (01008)By: On: 12-Feb-2013 Intent Yoli Martinez LPN Comments: brought own B-12 Lot #[id number], exp. 11/10. given IM in L deltoid without difficylty or c/o voiced. jq INFUSION, NORMAL SALINE On: 12-Feb-2013 Intent SOLUTION , 1000 CC (Special Comments: Normal Saline, Lot #[id number], exp. June 10 infusing without infiltrate in L AC. JQ Coverage Instructions Apply. See MCM: 2048) (J7030)By: Jailene Mayfield CNP, CNP, Mary E HYDRATION IV INFUSION, INIT On: 12-Feb-2013 Intent (45976)By: Jailene Mayfield CNP Comments: IV initiated in: [...] On: 23-Mar-2010 Intent Jewell Kendall Ear Irrigation (75856)By: On: 23-Mar-2010 Intent Jewell Hadley MD EKG (51879)By: Waqar ALBARADO, On: 23-Mar-2010 Intent Jewell Kendall PHYSICAL THERAPY EVALUATION On: 21-Jan-2010 Intent (66771)By: Jailene Mayfield CNP, CNP, Mary E Fxcxzhtin-Brc-Tdhv (78656)By: On: 07-Jul-2009 Intent Jazmine Cantor DO EKG (07346)By: Juan LANGSTON, On: 04-Apr-2009 Intent Yoli Ear Irrigation (68661)By: On: 30-Jan-2009 Intent Jewell Hadley MD Spirometry (42643)By: Waqar On: 28-Feb-2008 Intent Jewell ALBARADO Radiology - ChestBy: Waqar On: 18-Jan-2008 Intent Jewell ALBARADO B 12 Injection, 1000 mcg On: 02-Nov-2007 Intent (J3420)By: SHALINI Velazquez Comments: Lot #:[id number] date:ount given:1 ml Route: IMSite given:left deltoid Given by: darryl B 12 Injection, 1000 mcg On: 22-Sep-2007 Intent (J3420)By: Carolann White RN COLLECT VENOUS BLOOD, On: 25-Aug-2007 Intent VENIPUNCTURE (75428)By: Magda Viveros B 12 Injection, 1000 mcg [...] Velazquez ELECTROCARDIOGRAM, COMPLETE On: 27-Mar-2007 Intent (ECG) (74409)By: Jewell Hadley MD B 12 Injection, 1000 mcg On: 27-Mar-2007 Intent (J3420)By: Jewell Hadley MD Pulse Oximetry (16892)By: On: 27-Mar-2007 Intent Jewell Hadley MD Spirometry (62796)By: Waqar On: 27-Mar-2007 Intent Jewell ALBARADO Radiology [...] 45-4 and MCM: 2048) (J3420)By: Marianne Beck (20536)By: Waqar ALBARADO, On: 09-Dec-2006 Intent Jewell Kendall [...] enzymes : DISCONTINUED - ALCOHOL, ETHYL (BLOOD) (69962) Indication: Elevated liver enzymes Elevated liver enzymes : DISCONTINUED - HEPATIC FUNCTION PANEL (15562) Indication: Elevated liver enzymes Current smoker : [...] On: 23-Sep-2017 11:20 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 Pertinent medical history includes End: [...] for the procedure will be doctor antonieta [facility]. Pertinent medical history includes pr [...] patient does not have durable power of senior attorney or living will. The patient has [...] Note for Leg pain: moving furniture on [facility] felt pop and pull yesterday. troule [...]
== END ==
PROVIDERS: Family Provider Nurse Practitioner; PCP Nurse Practitioner; Referring Provider Internal Medicine Rheumatology; Visit Provider Internal Medicine Rheumatology
DX: M06.4 Inflammatory polyarthropathy (principal); R76.8 Other specified abnormal immunological findings in serum; I10 Essential (primary) hypertension; G25.81 Restless legs syndrome; K21.9 Gastro-esophageal reflux disease without esophagitis; F41.9 Anxiety disorder, unspecified
CPT/HCPCS: 36415; 80053; 85025

== ENCOUNTER → 2019-03-08 14:21 | Outpatient (CLI) | payer MEDICARE, OTHER, SELFPAY ==
[2019-03-08 15:59] LABS: Erythrocyte Sedimentation Rate 3 mm/hr (0-20)
[2019-03-08 16:08] LABS: Rheumatoid Factor < 10.0 IU/mL (<15); Thyroid Stim Hormone (TSH) 0.49 uIU/mL (0.358-3.74)
[2019-03-08 16:41] LABS: HIV - WCH Non-Reactive (Nonreactive); Vitamin B12 420 pg/mL (211-911)
[2019-03-08 17:31] LABS: Hemoglobin A1c 5.6 % (4.2-6.3)
[2019-03-12 14:06] LABS: RNP Ab <0.2 AI (0.0-0.9); Smith Ab <0.2 AI (0.0-0.9)
[2019-03-12 16:06] LABS: Alpha-1-Globulins 0.2 g/dL (0.0-0.4); Alpha-2-Globulins 0.7 g/dL (0.4-1.0); Gamma Globulin 0.9 g/dL (0.4-1.8); Immunoglobulin A 181 mg/dL (61-437); Immunoglobulin G 961 mg/dL (700-1600); Immunoglobulin M 96 mg/dL (20-172); PROEL- TOTAL PROTEIN 6.7 g/dL (6.0-8.5)
[2019-03-13 12:21] LABS: Hep C Antibodies <0.1 s/co ratio (0.0-0.9)
[2019-03-13 12:24] LABS: ANTINUCLEAR ANTIBODIES DIRECT Positive (Negative)
== END ==
PROVIDERS: Family Provider Nurse Practitioner; PCP Nurse Practitioner; Referring Provider Psychiatry & Neurology Neurology; Visit Provider Psychiatry & Neurology Neurology
DX: G62.9 Polyneuropathy, unspecified (principal); R26.81 Unsteadiness on feet; R41.3 Other amnesia; R53.83 Other fatigue; R73.9 Hyperglycemia, unspecified
CPT/HCPCS: 36415; 82607; 82746; 82784; 83036; 84165; 84443; 85652; 86038; 86235; 86334; 86431; 86703; 86803

== ENCOUNTER → 2019-03-12 10:39 | Outpatient (CLI) | payer MEDICARE, OTHER, SELFPAY ==
--- NOTE | 2019-03-12 10:59 | CT_ITS ---
STUDY: CT SOFT TISSUE NECK WITH CONTRAST REASON FOR EXAM: Male, 69 years old. Cervical swelling. RADIATION DOSAGE (If Supplied By Facility): CTDIvol = ( 20.9 ) mGy, DLP = ( 626.22 ) mGycm TECHNIQUE: The patient was scanned in a multi-detector CT scanner. High resolution transaxial imaging was performed following intravenous administration of 75 IV Isovue 370. Sagittal and coronal images were reconstructed. Individualized dose optimization techniques were used for this CT. COMPARISON: None. FINDINGS: Atherosclerotic calcification of the aortic arch. Normal bilateral parotid glands. Normal bilateral pipe maker spaces. Normal bilateral parapharyngeal spaces. Normal bilateral carotid spaces. Normal bilateral sublingual and submandibular glands and spaces. Normal visualized nasopharynx. Normal retropharyngeal space. Normal perivertebral space. Normal visualized bilateral faucial tonsils. The visualized tongue, tongue base and oropharynx are normal. There are minimally enlarged lymph nodes of the neck, with preservation of normal lenka architecture, consistent with a reactive lymph hyperplasia. There is no demonstrated solid or cystic mass lesion. There is no abnormal contrast enhancement. Normal epiglottis, bilateral vallecula and hypopharynx. The pre-epiglottic and paraglottic adipose spaces are normal. Normal visualized bilateral piriform sinuses, aryepiglottic folds, vocal cords, and arytenoid-cricoid articulations. Normal subglottic trachea. Normal bilateral lobes of the thyroid gland. Normal visualized pulmonary apices. Mucosal thickening of the maxillary sinus bilaterally. There is multilevel degenerative changes of the cervical spine. CT/Soft Tissue Neck WITH Contrast IMPRESSION: No significant abnormality is seen. Electronically Signed: Maxi Arana, at 12:21 EDT , Service support ,
[2019-03-12 11:13] LABS: Absolute Lymphocyte Count 1.33 X10^3/ul (0.83-4.51); Absolute Neutrophil Count 4.8 X10^3/uL (2.0-7.7); Basophil# 0.03 X10^3/uL; Basophil% 0.4 % (0-1); Eosinophil# 0.06 X10^3/uL; Eosinophils% 0.9 % (0-5); Hematocrit 49.7 % (40-54); Hemoglobin 17.2 g/dl (13.0-16.5); Lymphocyte # 1.33 X10^3/ul (4.0); Lymphocyte % 19.6 % (19-41); Mean Corp Hgb Conc 34.6 g/gl (32-36); Mean Corpuscular Hgb 33.3 pg (27.0-32.0); Mean Corpuscular Volume 96.1 fL (80-94); Mean Platelet Vol. 10.2 fl (6.2-12.0); Monocyte# 0.57 X10^3/uL; Monocyte% 8.4 % (0-10); Neutrophil # 4.77 X10^3/uL (2.7-7.7); Neutrophil % 70.6 % (47-70); Platelet Count 183 K/mm3 (150-450); RBC Distribution Width SD 42.2 fl (35.1-43.9); Red Blood Count 5.17 M/mm3 (4.6-6.2); White Blood Count 6.8 K/mm3 (4.4-11.0)
[2019-03-12 11:14] LABS: Erythrocyte Sedimentation Rate < 1 mm/hr (0-20); POSITIVE COUNT NO; POSITIVE DIFFERENTIAL NO; POSITIVE MORPHOLOGY NO
[2019-03-12 11:29] LABS: ALB/GLOB Ratio 1.1 RATIO (0.9-2.4); AST(SGOT) 16 U/L (15-37); Alanine Aminotransfer ALT/SGPT 23 U/L (16-61); Alkaline Phosphatase 68 U/L (45-117); Anion Gap 6 (5-15); BUN 13 mg/dL (7-18); BUN/Creat Ratio 14.4 RATIO (10-20); CRP 4.23 mg/L (0.0-3.0); Calcium,Total 8.8 mg/dL (8.5-10.1); Chloride 107 mmol/L (98-107); EST Glomerular Filtration Rate 89 mL/min (>60); Est Glom Filt Rate - Afr Amer 107 mL/min (>60); Globulin 3.5 g/dL (2.2-4.2); Glucose 100 mg/dL (74-106); Potassium 4.2 mmol/L (3.5-5.1); Protein, Total 7.5 g/dL (6.4-8.2); Sodium Level 140 mmol/L (136-145)
== END ==
PROVIDERS: Family Provider Nurse Practitioner; PCP Nurse Practitioner; Referring Provider Nurse Practitioner Gerontology; Visit Provider Nurse Practitioner Gerontology
DX: R59.0 Localized enlarged lymph nodes (principal)
CPT/HCPCS: 36415; 70491; 80053; 85025; 85652; 86140; Q9967

== ENCOUNTER → 2019-07-05 12:30 | Outpatient (CLI) | payer MEDICARE, OTHER, SELFPAY ==
--- NOTE | 2019-07-05 12:32 | CT_ITS ---
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 RADIATION DOSAGE (If Supplied By Facility): CTDIvol = ( 3.02 ) mGy, DLP = ( 106.08 ) mGycm Individualized dose optimization techniques were used for this CT. TECHNIQUE: No contrast was administered. Low dose technique was utilized (average mAS-38 and kVp 120). Thin slice transaxial CT imaging of the chest. Sagittal and coronal 2-D MPR Nodule measured using lung windows on PACS and/or independent workstation with automated measurement of minimum and maximum diameter. Nodule measurement reported as average diameter rounded to the nearest whole number. Growth is defined as an increase ins size of greater than 1.5 mm. COMPARISON: CT chest 07/05/2018, x-ray chest 12/19/2017, 11/08/2016. CT abdomen and pelvis 08/22/2018 FINDINGS: Total lung nodules (excluding granulomas): Solitary 2 mm pulmonary nodule left lower lobe axial series 2, image 175. Emphysema: Minimal scattered subpleural reticulation, likely reflecting sequela of smoking history. There are no cyn features of centrilobular emphysema. A few tiny blebs are present at the lung apices bilaterally possibly a manifestation of very mild paraseptal emphysema. Endobronchial lesion: None. Aorta: Nonaneurysmal ectasia of the ascending aorta and proximal arch 3.4 cm. Mild arch atherosclerosis. Coronary arteries: Normal coronary artery origins and branching anatomy. Right coronary dominance to the PDA. Short segment of coronary calcium in the proximal LAD just beyond the origin. Heart: No cardiomegaly or pericardial effusion. Pulmonary artery: Nondilated. Mediastinal nodes: No mediastinal mass or lymphadenopathy. Very slightly. Otherwise normal esophagus. Other chest and abdominal findings: Upper abdomen, body wall soft tissues, supraclavicular soft tissues and osseous structures exhibit no acute process. CT/Low Dose CT Lung Screening IMPRESSION: Solitary tiny pulmonary nodule. 2 mm. Tiny apical blebs bilaterally in a pattern that may reflect very mild paraseptal emphysema. There also appears to be mild generalized pulmonary hyperinflation hyperlucency suggesting mild COPD. Minimal scattered subpleural reticulation favoring chronic sequela of smoking history. Small segment of coronary calcium proximal LAD only. No other acute cardiopulmonary process is evident. ACR lung RADS category 2, benign appearance. Follow-up CT chest is recommended in 1 year for continued surveillance. IMPORTANT NOTES FOR USE: ACR Lung-RADS Version 1.0 Assessment Categories Release Date: March 25, 2014 Category: Coded 0-4 bases on nodule(s) with highest degree of suspicion. Negative screen is defined as categories 1 and 2; a positive screen is defined as categories 3 and 4. Category 3 and 4A nodules that are unchanged on interval CT should be coded as category 2, and individuals returned to screening in 12 months. Category 4X: Category 3 or 4 nodules with additional imaging findings that increase the suspicion of lung cancer, such as spiculation, that doubles in size in 1 year, enlarged lymph notes, etc. Category Modifiers: S (significant finding unrelated to lung cancer) and C (prior history of treated lung cancer) may be added to the 0-4 Lung-RADS Electronically Signed: Jeffrey Cardenas MD at 15:11 EDT Tel , Service support ,
== END ==
PROVIDERS: Family Provider Nurse Practitioner; PCP Nurse Practitioner; Referring Provider Internal Medicine Pulmonary Disease; Visit Provider Internal Medicine Pulmonary Disease
DX: Z87.891 Personal history of nicotine dependence (principal)
CPT/HCPCS: G0297

== ENCOUNTER → 2019-12-17 10:32 | Outpatient (CLI) | payer MEDICARE, OTHER, SELFPAY ==
--- NOTE | 2019-12-17 10:36 | RAD_ITS ---
HISTORY: COUGH ADDITIONAL HISTORY: None provided. COMPARISON: 12/19/2017, 12/02/2016 TECHNIQUE: Frontal and lateral chest radiographs. Number of images including paperwork: 2 FINDINGS: LUNGS AND PLEURA: No consolidation, mass or pleural effusion. Nipple shadows are visible. CARDIAC SILHOUETTE: Unremarkable. MEDIASTINUM AND ARACELI: Unchanged aortic calcification and tortuosity. UPPER ABDOMEN: Unremarkable. SKELETON AND SOFT TISSUES: No acute findings. Degenerative changes. OTHER DEVICES AND HARDWARE: None. RAD/Chest PA and Lateral IMPRESSION: No acute cardiopulmonary abnormality. at 2336 Reported and signed by: Anusha Vines MD Electronically Signed: Anusha Vines MD at 23:36 EST Tel , Service support ,
== END ==
PROVIDERS: PCP Nurse Practitioner; Referring Provider Internal Medicine; Visit Provider Internal Medicine
DX: R05 Cough (principal)
CPT/HCPCS: 71046

== ENCOUNTER → 2021-05-13 14:12 | Outpatient (CLI) | payer MEDICARE, OTHER, SELFPAY ==
--- NOTE | 2021-05-13 14:16 | US_ITS ---
STUDY: THYROID ULTRASOUND REASON FOR EXAM: Male, 71 years old. Abnormal TSH levels. TECHNIQUE: Ultrasound evaluation of the thyroid was performed with real-time and static kuo-scale imaging. COMPARISON: Comparison is made with prior examination of March 2017. FINDINGS: RIGHT LOBE: The right lobe of the thyroid gland measures 4 cm x 2.3 cm x 1.5 cm. There is a homogeneous echotexture. There is a 6 mm x 4 mm x 3 mm hypoechoic solid nodule in the midpole of the right lobe. This is unchanged. Perinodular vascularity is once again seen. LEFT LOBE: The left lobe of the thyroid gland measures 4.5 cm x 1.6 cm x 1.5 cm. There is a homogeneous echotexture. 2 subcentimeter solid nodules are seen. The larger measures 8 mm x 6 mm x 6 mm. This is in the mid pole. This is unchanged. ISTHMUS: The isthmus measures 4 mm. The regional lymph nodes are normal. US/Thyroid IMPRESSION: Stable examination. Electronically Signed: Maxi Arana MD at 15:04 EDT , Service support ,
== END ==
PROVIDERS: PCP Nurse Practitioner; Referring Provider Nurse Practitioner; Visit Provider Nurse Practitioner
DX: R79.89 Other specified abnormal findings of blood chemistry (principal)
CPT/HCPCS: 76536

== ENCOUNTER 2023-11-11 10:12 | Emergency (ER) | payer MEDICARE, OTHER, SELFPAY ==
[2023-11-11 10:14] VITALS: BP 156/103; PULSE 87; RESP 16; TEMP 36.3; O2SAT 94
--- NOTE | 2023-11-11 10:41 | CT_ITS ---
STUDY: CT BRAIN WITHOUT CONTRAST REASON FOR EXAM: Male, 73 years old. Head injury due to a fall. RADIATION DOSAGE (If Supplied By Facility): CTDIvol = ( 44.99 ) mGy, DLP = ( 779.24 ) mGycm TECHNIQUE: Transaxial CT imaging of the brain was performed without administration of intravenous contrast material. Individualized dose optimization techniques were used for this CT. COMPARISON: Comparison is made with prior study dated May 27, 2011. FINDINGS: Normal soft tissue structures. Normal calvarium. There is mild cerebral atrophy with widening of the extra-axial spaces and ventricular dilatation. There are areas of decreased attenuation within the white matter tracts of the supratentorial brain, consistent with microvascular disease changes. There are small punctate calcifications of the basal ganglia which are seen in the aging brain as a normal variant. Normal brainstem. Normal cerebellum. There is no intracranial hemorrhage. There are no findings of an acute ischemic infarction. Atherosclerotic plaque formation of the vertebral arteries and cavernous portions of the internal carotid arteries bilaterally. Normal visualized paranasal sinuses. CT/Brain/Head without Contrast IMPRESSION: Chronic involutional changes of the brain. Electronically Signed: Maxi Arana MD at 12:25 [facility] ,
--- NOTE | 2023-11-11 10:41 | CT_ITS ---
STUDY: CT CHEST, ABDOMEN T PELVIS WITH CONTRAST REASON FOR EXAM: Male, 73 years old. Trauma. Hip and rib pain. RADIATION DOSAGE (If Supplied By Facility): CTDIvol = ( 20.28 ) mGy, DLP = ( 2164.75 ) mGycm TECHNIQUE: Transaxial imaging was performed following intravenous administration of IV 100mL Isovue-300. Individualized dose optimization techniques were used for this CT. COMPARISON: Comparison is made with prior CT scan the chest dated July 05, 2019. FINDINGS: CHEST Mild degree of right basilar atelectasis. There is no demonstrated pleural abnormality. There are calcifications of the coronary arteries. Normal mediastinum. Normal hilar regions. Normal unenhanced pulmonary arteries. Normal aorta arch and descending thoracic aorta. There are degenerative changes of the thoracic spine. Small hiatal hernia. ABDOMEN There is decreased attenuation of the liver consistent with steatosis. Normal gallbladder and extrahepatic biliary system. Normal spleen. Normal pancreas. Normal bilateral adrenal glands. 2.7 cm cyst in the anterior lower pole of the right kidney. Normal left kidney. There is a small hiatal hernia. Normal small intestine. There are multiple colonic diverticula consistent with diverticulosis. The appendix is visualized and appears normal. There is diffuse atherosclerotic calcification of the abdominal aorta, without a demonstrated aneurysm. Normal inferior vena cava. Normal retroperitoneum. Normal abdominal wall. There are diffuse degenerative changes of the visualized lumbar spine. Osteoarthritis of both hip joints worse on the left side with possible avascular necrosis. PELVIS Normal urinary bladder. Prostatic calcifications. There is no pelvic fluid. There is no pelvic lymphadenopathy or mass lesion. There is diffuse atherosclerotic calcification of the pelvic arteries. CT/CT Chest, Abd, Pel w/Contrast IMPRESSION: Mild degree of right basilar atelectasis. Fatty infiltration of the liver. Osteoarthritis of both hip joints. Electronically Signed: Maxi Arana MD at 12:36 EST ,
--- NOTE | 2023-11-11 10:42 | ED.VIS.FALL ---
HPI HPI - Fall History of Present Illness Chief Complaint: Fall Informant: patient and family Narrative Narrative: 73-year-old male presenting to the emergency room with right-sided pain from a fall. Patient states that he was walking into his bathroom on Tuesday night and lost his balance and fell. He states he was wedged in between the toilet and the wall. He believes he hit the toilet. Family states that he had pain in the right hip right ribs. The states that he was black on the right side of his body until this morning. He notes pain in the right hip with movement. Right lower anterior chest and abdominal pain. He notes bruising to the right side of his abdomen. Family notes a knot on the back of his head. No reported loss of conscious. Patient denying back pain, hematuria or left-sided abdominal pain. He states he is not on a blood thinner. He reportedly called his primary care doctor's office and was told to come to emergency. Patient states that his right hip hurts in the middle. When asked specifically what that means he points to the outer aspect of the right hip. [facility] Medical History HTN (hypertension) Home Medications amlodipine 10 mg-valsartan 160 mg tablet (Exforge) 160 mg PO DAILY 07/01/14 [History Last Taken Unknown] cholecalciferol (vitamin D3) 25 mcg (1,000 unit) capsule (Vitamin D3) 1 cap PO QWEEK 07/01/14 [History Last Taken Unknown] esomeprazole magnesium 40 mg capsule,delayed release (Nexium) 40 mg PO DAILY 07/01/14 [History Last Taken Unknown] lorazepam 1 mg tablet 1 mg PO DAILY PRN PRN Anxiety 07/01/14 [History Last Taken 11/08/16 16:00] multivitamin,[id number] 27 mg-0.4 mg tablet (Therems-M) 1 tab PO DAILYCM ##30 07/03/14 [Rx Last Taken Unknown] escitalopram oxalate 20 mg tablet 20 mg PO DAILY 11/08/16 [History Last Taken Unknown] oxycodone-acetaminophen 5 mg-325 mg tablet 1 tab PO Q6H PRN PRN Pain 3 days #12 TABLETS 11/11/23 [Rx Last Taken Unknown] Allergy/AdvReac Type Severity Reaction Status Date / Time No Known Allergies Allergy Verified 11/11/23 10:13 Social History Smoking Status: Current every day smoker ROS ROS ED Constitutional Constitutional ED: Denies chills, fever(s) or weight loss Eyes Eyes: Denies change in vision or diplopia ENT ENT ED: Denies ear pain, rhinorrhea or sore throat Cardiovascular Cardiovascular: Reports chest pain; Denies orthopnea, palpitations or racing heartbeat Respiratory/Chest Respiratory/Chest: Denies cough, dyspnea or orthopnea Gastrointestinal Gastrointestinal: Reports abdominal pain; Denies diarrhea, nausea or vomiting Genitourinary Genitourinary ED: Denies dysuria, hematuria or urinary frequency Musculoskeletal Musculoskeletal: Reports other Details: Right hip pain ; Denies arthralgias, back pain, myalgias or neck pain Integumentary Reports other Details: Contusions. Right occipital hematoma. ; Denies abscess or rash Neurologic Neurologic: Reports headache(s); Denies weakness Psychiatric Psychiatric: Denies anxiety, depression, suicidal ideation or suicidal thoughts Endocrine Endocrinology: Denies polydipsia, polyphagia or polyuria Allergic/Immunologic Allergic/Immunologic ED: Denies mouth swelling, tongue swelling or urticaria EXAM Physical Exam Const Vital Signs: 11/11/23 10:14 11/11/23 10:42 Temperature 97.4 F L Temperature Source Temporal Pulse Rate 87 Respiratory Rate 16 Respiratory Effort Normal Non-Labored Respiratory Depth Normal Respiratory Pattern Normal Blood Pressure 156/103 H Blood Pressure Mean 120 Pulse Ox 94 Oxygen Delivery Method Room Air Room Air Positive well nourished and well developed General Appearance ED: well developed HEENT Reports normocephalic and moist mucous membranes HEENT Narrative: Resolving occipital scalp hematoma Eyes PERRL and EOMs intact bilaterally Neck full ROM, no lymphadenopathy, supple and no JVD Chest Wall Chest Narrative: Tender palpation lower anterior mid axillary right ribs Resp normal respiratory effort and clear to auscultation bilaterally Cardio regular rate, regular rhythm and no murmurs GI non-distended GI Narrative: Tender to palpation right side of the abdomen. There is yellowish-purple ecchymosis in a circular pattern in the right lower quadrant. Inspection: Negative for abdominal distention Auscultation: normoactive bowel sounds Palpation: soft; Negative for rebound tenderness present Back/Spine no CVA tenderness and normal ROM Extremity Extremity Narrative: Tender to palpation over the lateral greater trochanter region of the right hip General Extremety ED: Negative for edema General Extremity: Negative for edema Neuro oriented x3 and CN's II-XII intact bilaterally Sensorium / Orientation: alert Motor Exam: strength 5/5 throughout Psych mental status grossly normal Mood & Affect: Negative for depressed or tearful Skin no rashes or lesions noted and no wounds MDM MDM MDM Narrative Medical decision making narrative: CBC shows a hemoglobin 16.5 white count 7.5. Normal liver enzymes except for bilirubin of 1.6 and he has a glucose of 115. Normal creatinine. Therefore CT of the chest abdomen pelvis with IV contrast was obtained. This demonstrates a solitary rib fracture. There is no evidence of pneumothorax pulmonary contusion pleural effusion. There is no obvious solid organ injury in the abdomen. CT the brain demonstrates no obvious intracranial hemorrhage or fracture. My independent interpretation of the plain films of the right hip and pelvis is no acute fracture. Degenerative changes of the left hip which the patient knows about. Patient will be discharged home. He is to expect soreness for weeks. Would recommend follow-up in 1 week with primary care. History & Record Review Discussion w/independent historian: Patient and Family Lab Data Attestation: I reviewed the patient's lab results. Labs: Laboratory Results - last 24 hr 11/11/23 10:55 WBC 7.8 RBC 4.99 Hgb 16.5 Hct 47.2 MCV 94.6 H MCH 33.1 H MCHC 35.0 RDW Std Deviation 43.9 RDW Coeff of Jay 12.7 Plt Count 216 MPV 9.2 Immature Gran % (Auto) 0.600 Neut % (Auto) 76.6 H Lymph % (Auto) 14.9 L Early % (Auto) 6.9 Eos % (Auto) 0.4 Baso % (Auto) 0.6 Absolute Neuts (auto) 5.9 Absolute Lymphs (auto) 1.16 Nucleated RBC % 0 Sodium 137 Potassium 3.7 Chloride 105 Carbon Dioxide 25.0 Anion Gap 7 BUN 11 Creatinine 0.64 L Est GFR (MDRD) Af Amer 157 Est GFR (MDRD) Non-Af 130 BUN/Creatinine Ratio 17.2 Glucose 115 H Calcium 9.0 Total Bilirubin 1.60 H AST 22 ALT 34 Alkaline Phosphatase 75 Total Protein 7.8 Albumin 3.8 Globulin 4.0 Albumin/Globulin Ratio 1.0 Radiography Diagnostic Testing: Clinical Impression(s) from Imaging Studies Brain CT 11/11/23 10:41 IMPRESSION: Chronic involutional changes of the brain. Electronically Signed: Maxi Arana MD at 12:25 EST , Chest/Abdomen/Pelvis CT 11/11/23 10:41 IMPRESSION: Mild degree of right basilar atelectasis. Fatty infiltration of the liver. Osteoarthritis of both hip joints. Electronically Signed: Maxi Arana MD at 12:36 EST , Hip/Pelvis X-Ray 11/11/23 11:40 IMPRESSION: No acute abnormality is seen. 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 Electronically Signed: Maxi Arana MD at 12:26 EST , Discharge Plan Triage Chief Complaint: Fall ED Provider: Chidi Prasad Dx/Rx/DC Orders Clinical Impression: Right rib fracture, Chest wall contusion, Contusion of scalp, Fall, Contusion of hip, right Instructions: ED Chest Wall Contusion, ED Rib Fracture, ED Head Injury (Adult), ED Hip Contusion Prescriptions: New oxycodone-acetaminophen [oxycodone-acetaminophen] 5-325 mg tablet 1 tab PO Q6H PRN PRN (Reason: Pain) 3 Days Qty: 12 0RF No Action lorazepam 1 MG tablet 1 mg PO DAILY PRN PRN (Reason: Anxiety) Patient Comments: ANXIETY esomeprazole magnesium [Nexium] 40 MG capsule 40 mg PO DAILY Patient Comments: ACID REFLUX amlodipine-valsartan [Exforge] 1 TAB tablet 160 mg PO DAILY Patient Comments: HEART/BLOOD PRESSURE cholecalciferol (vitamin D3) [Vitamin D3] 1,000 UNIT capsule 1 cap PO QWEEK Patient Comments: PT REPORTS HE TAKES 1 CAPSULE EVERY 3 DAYS VITAMIN multivitamin,[id number] [Therems-M] 1 TABLET tablet 1 tab PO DAILYCM Qty: 30 0RF Patient Comments: VITAMIN escitalopram oxalate 20 MG tablet 20 mg PO DAILY Primary Care Provider: Rachele Pratt Referrals: Rachele Pratt, COUNSELING SERVICES DIRECTOR-C [Primary Care Provider] - 1 Week Disposition Disposition: Home, Self Care
[2023-11-11 11:05] LABS: Absolute Lymphocyte Count 1.16 X10^3/uL (0.83-4.51); Absolute Neutrophil Count 5.9 X10^3/uL (2.0-7.7); Basophil# 0.05 X10^3/uL; Basophil% 0.6 % (0-1); Eosinophil# 0.03 X10^3/uL; Eosinophils% 0.4 % (0-5); Hematocrit 47.2 % (40-54); Hemoglobin 16.5 g/dL (13.0-16.5); Lymphocyte # 1.16 X10^3/ul (0.83-4.51); Lymphocyte % 14.9 % (19-41); Mean Corpuscular Hgb 33.1 pg (27.0-32.0); Mean Corpuscular Volume 94.6 fL (80-94); Mean Platelet Vol. 9.2 fl (6.2-12.0); Monocyte# 0.54 X10^3/uL; Monocyte% 6.9 % (0-10); NRBC Flagged by Analyzer 0 % (0-5); Neutrophil # 5.94 X10^3/uL (2.7-7.7); Neutrophil % 76.6 % (47-70); Platelet Count 216 K/mm3 (150-450); RBC Distribution Width CV 12.7 % (11.6-14.6); RBC Distribution Width SD 43.9 fl (35.1-43.9); Red Blood Count 4.99 M/mm3 (4.6-6.2); White Blood Count 7.8 K/mm3 (4.4-11.0)
[2023-11-11 11:20] LABS: AST(SGOT) 22 U/L (15-37); Alanine Aminotransfer ALT/SGPT 34 U/L (16-61); Albumin, Serum 3.8 g/dL (3.2-5.0); Alkaline Phosphatase 75 U/L (45-117); Anion Gap 7 (5-15); BUN 11 mg/dL (7-18); BUN/Creat Ratio 17.2 RATIO (10-20); Chloride 105 mmol/L (98-107); Creatinine, Serum 0.64 mg/dL (0.70-1.30); EST Glomerular Filtration Rate 130 mL/min (>60); Est Glom Filt Rate - Afr Amer 157 mL/min (>60); Glucose 115 mg/dL (74-106); Potassium 3.7 mmol/L (3.5-5.1); Protein, Total 7.8 g/dL (6.4-8.2); Sodium Level 137 mmol/L (136-145)
--- NOTE | 2023-11-11 11:40 | RAD_ITS ---
STUDY: X-RAY - PELVIS AND RIGHT HIP REASON FOR EXAM: Male, 73 years old. Hip pain following a fall. TECHNIQUE: 3 views of the pelvis and hip. COMPARISON: None. FINDINGS: There is a non-specific bowel gas pattern. Normal visualized soft tissue structures. Normal bilateral iliac wings, sacroiliac joints and visualized sacrum. Normal bilateral superior and inferior pubic rami. Normal pubic symphysis. Normal bilateral ischial tuberosities. Normal visualized femoral head. There is osteoarthritic spur formation of the acetabular rim. There is moderate articular joint space narrowing of the hip. Marked degree of osteoarthritis of the left hip joint with deformity of the femoral head and cystic changes suggestive of possible avascular necrosis. RAD/HIP, UNI W/ Pelvis 2-3 Views IMPRESSION: No acute abnormality is seen. 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 Electronically Signed: Maxi Arana MD at 12:26 EST ,
== END 2023-11-11 13:19 | disposition home or self-care (01) ==
PROVIDERS: Emergency Provider Emergency Medicine; PCP Nurse Practitioner Family; Visit Provider Emergency Medicine
DX: S70.01XA Contusion of right hip, initial encounter (principal); S22.31XA Fracture of one rib, right side, initial encounter for closed fracture; S20.20XA Contusion of thorax, unspecified, initial encounter; I10 Essential (primary) hypertension; M16.0 Bilateral primary osteoarthritis of hip; S00.03XA Contusion of scalp, initial encounter; W01.198A Fall on same level from slipping, tripping and stumbling with subsequent striking against other object, initial encounter; Y92.002 Bathroom of unspecified non-institutional (private) residence as the place of occurrence of the external cause; F17.210 Nicotine dependence, cigarettes, uncomplicated; Z79.899 Other long term (current) drug therapy
CPT/HCPCS: 70450; 71260; 73502; 74177; 80053; 85025; 99283; Q9967; A4216

== ENCOUNTER 2024-03-31 11:07 | Emergency (ER) | payer MEDICARE, OTHER, SELFPAY ==
[2024-03-31 11:09] VITALS: BP 146/91; PULSE 90; RESP 16; TEMP 36.2; O2SAT 97
[2024-03-31 11:11] VITALS: BMI 27.7
--- NOTE | 2024-03-31 11:34 | EKG12_ITS ---
Test Reason : Blood Pressure : / mmHG Vent. Rate : 079 BPM Atrial Rate : 079 BPM P-R Int : 158 ms QRS Dur : 128 ms QT Int : 404 ms P-R-T Axes : 031 -14 013 degrees QTc Int : 463 ms Sinus rhythm with Premature atrial complexes with Aberrant conduction Right bundle branch block Abnormal ECG Confirmed by MARCUS ALBARADO, ZAMZAM ([id number]), purchasing expeditor CHAPO ROMERO ([id number]) on 04/02/2024 7:06:08 AM Referred By: Confirmed By:ZAMZAM VELAZQUEZ MD
--- NOTE | 2024-03-31 11:39 | EX.ED.DYSGE1 ---
HPI <LEATHA Barrett - Last Filed: 03/31/24 21:07> History of Present Illness Chief Complaint: Weakness Narrative Narrative: Patient presenting today due to generalized weakness that he has been experiencing over the past several months. He reports that he is having difficulty with balance, decreased appetite, has had increased falls, muscle weakness, and feels shaky in his extremities. Today he had a difficult time getting up off the couch, prompting him to come in for evaluation. reports that he has been laying around on the couch more frequently over the past month. He reports concerns for Parkinson's disease, he reports that his dad and another family member had this. He reports chronic shortness of breath with exertion. He denies any fevers, chills, chest pain, and urinary symptoms. He reports a PMH of hypertension. PFSH <LEATHA Barrett - Last Filed: 03/31/24 21:07> [facility] Medical History HTN (hypertension) Home Medications amlodipine 10 mg-valsartan 160 mg tablet (Exforge) 160 mg PO DAILY 07/01/14 [History Last Taken Unknown] cholecalciferol (vitamin D3) 25 mcg (1,000 unit) capsule (Vitamin D3) 1 cap PO QWEEK 07/01/14 [History Last Taken Unknown] esomeprazole magnesium 40 mg capsule,delayed release (Nexium) 40 mg PO DAILY 07/01/14 [History Last Taken Unknown] lorazepam 1 mg tablet 1 mg PO DAILY PRN PRN Anxiety 07/01/14 [History Last Taken 11/08/16 16:00] multivitamin,[id number]-[id number] 27 mg-0.4 mg tablet (Therems-M) 1 tab PO DAILYCM ##30 07/03/14 [Rx Last Taken Unknown] escitalopram oxalate 20 mg tablet 20 mg PO DAILY 11/08/16 [History Last Taken Unknown] oxycodone-acetaminophen 5 mg-325 mg tablet 1 tab PO Q6H PRN PRN Pain 3 days #12 TABLETS 11/11/23 [Rx Last Taken Unknown] sertraline 25 mg tablet (Zoloft) 25 mg PO DAILY #30 tabs 03/31/24 [Rx Last Taken Unknown] Allergy/AdvReac Type Severity Reaction Status Date / Time No Known Allergies Allergy Verified 03/31/24 11:09 Social History Smoking Status: Light Smoker (<10/day) ROS <LEATHA Barrett - Last Filed: 03/31/24 21:07> ROS ED Constitutional Constitutional ED: Denies chills or fever(s) Cardiovascular Cardiovascular: Denies chest pain or palpitations Respiratory/Chest Respiratory/Chest: Denies cough or dyspnea Gastrointestinal Gastrointestinal: Denies abdominal pain, nausea or vomiting Genitourinary Genitourinary ED: Denies dysuria, hematuria or urinary urgency Musculoskeletal Musculoskeletal: Denies arthralgias or myalgias Integumentary Denies rash Neurologic Neurologic: Reports weakness Psychiatric Psychiatric: Reports depression; Denies suicidal ideation or suicidal thoughts EXAM <LEATHA Barrett - Last Filed: 03/31/24 21:07> Physical Exam Const Vital Signs: 03/31/24 11:09 03/31/24 13:08 03/31/24 14:22 Temperature 97.2 F L 97.8 F Temperature Source Temporal Temporal Pulse Rate 90 76 83 Respiratory Rate 16 18 16 Blood Pressure 146/91 H 136/79 H 144/93 H Blood Pressure Mean 109 98 110 Pulse Ox 97 98 97 Oxygen Delivery Method Room Air Room Air Room Air 03/31/24 16:59 Temperature 97.6 F L Temperature Source Pulse Rate 83 Respiratory Rate 18 Blood Pressure 162/96 H Blood Pressure Mean 118 Pulse Ox 98 Oxygen Delivery Method Positive well nourished, well developed and no apparent distress General Appearance ED: well developed HEENT Reports normocephalic and head/scalp atraumatic Mouth ED: Yes moist mucous membranes normal Eyes PERRL and EOMs intact bilaterally Neck full ROM and supple Chest Wall inspection of chest normal Resp normal respiratory effort and clear to auscultation bilaterally Cardio regular rate and regular rhythm GI soft to palpation, non-tender, non-distended and no masses Back/Spine normal ROM and normal to inspection Extremity normal to inspection and full ROM Neuro oriented x3, CN's II-XII intact bilaterally, moves all extremities, no focal motor deficits and no sensory deficits noted Sensorium / Orientation: awake and alert Psych mental status grossly normal and thought process normal Skin no rashes or lesions noted and no wounds <Dr. Leon Rodrigues MD - Last Filed: 03/31/24 21:19> Physical Exam Const Vital Signs: 03/31/24 11:09 03/31/24 13:08 03/31/24 14:22 Temperature 97.2 F L 97.8 F Temperature Source Temporal Temporal Pulse Rate 90 76 83 Respiratory Rate 16 18 16 Blood Pressure 146/91 H 136/79 H 144/93 H Blood Pressure Mean 109 98 110 Pulse Ox 97 98 97 Oxygen Delivery Method Room Air Room Air Room Air 03/31/24 16:59 Temperature 97.6 F L Temperature Source Pulse Rate 83 Respiratory Rate 18 Blood Pressure 162/96 H Blood Pressure Mean 118 Pulse Ox 98 Oxygen Delivery Method MDM <LEATHA Barrett - Last Filed: 03/31/24 21:07> MDM MDM Narrative Medical decision making narrative: Patient presenting due to generalized weakness over the past several weeks. He has had decreased appetite as well. reports concerns due to patient appearing depressed and having low motivation to eat or move around. Labs obtained to rule out leukocytosis, anemia, electrolyte abnormality, KMI, UTI, and ACS. Labs overall are unremarkable aside from potassium of 3.3, he was given potassium replacement. I do feel that patient is suffering from depression, he denies any HI or SI. On further examination he did admit that he had a previous history of alcohol abuse and did start drinking again about 1 pint of whiskey daily, his was not aware of this. He does not feel he is going through withdrawal at this time. We did offer to admit him for detox and social work consult to help manage the depression and alcohol abuse, he declines and wants time to think about it. We told him if he were to come back tomorrow would get him admitted for detox and also consult with the rn social services. I do feel he would benefit from a dual treatment facility for depression and substance abuse. Will start him on a low-dose antidepressant. Strict return instructions given. He will be discharged in stable condition.. I have personally performed a face to face assessment of the patient and have reviewed the BERTA Note. I performed a substantive portion of the visit including all aspects of the following. My castano findings include: History is remarkable for generalized weakness. Sleeping on the couch for 1 month and decreased appetite. Patient is wearing sunglasses. 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 He recent saw ophthalmology and he has eczema of his lower lid on the right side. He denies fever or chills. He denies headache. He and his endorse trouble with fluency as well as slurred words. He denies chest pain. He denies shortness of breath. He denies abdominal pain, nausea, vomit diarrhea. Denies black or maroon-colored stool. Patient endorses generalized weakness. He has not noted a rash. Patient does have history of reflux. He states if he eats things he should not he does get heartburn and reflux symptoms at night. He denies urologic symptoms. Exam is patient is lying comfortably on the examination cot. Is wearing sunglasses. HEENT exam is remarkable for the eczema. Otherwise his HEENT exam is normal. Neck is supple. Trachea is midline. Lungs are clear to auscultation. Breath sounds are symmetric. Heart is regular. Rate is normal. No murmur, gallop or rub. Abdomen soft nontender. No palp muscle mass or abdominal bruit. Alert orient x 3. Cranials 2 through 12 are intact. Motor 5/5. Sensations intact. There is no clonus Babinski sign. There is no dysmetria. Patient's affect is flat. There is no cogwheel rigidity. mentioned concern for Parkinson's disease. When asked to perform certain activities he does have a tremor in his upper extremities. It is not a classic pill-rolling motion that is associated with Parkinson's disease. Medical Decision Making differential diagnosis includes psychiatric, autoimmune, anemia, possible neurologic. Workup was undertaken. Other additions or changes: [None] Lab Data Attestation: I reviewed the patient's lab results. Lab results narrative: Potassium 3.3 Labs: Laboratory Results - last 24 hr 03/31/24 03/31/24 11:35 13:30 WBC 7.0 RBC 4.81 Hgb 16.0 Hct 44.9 MCV 93.3 MCH 33.3 H MCHC 35.6 RDW Std Deviation 42.9 RDW Coeff of Jay 12.4 Plt Count 199 MPV 9.4 Immature Gran % (Auto) 1.000 H Neut % (Auto) 77.0 H Lymph % (Auto) 14.0 L [place] % (Auto) 6.7 Eos % (Auto) 0.7 Baso % (Auto) 0.6 Absolute Neuts (auto) 5.4 Absolute Lymphs (auto) 0.98 Nucleated RBC % 0 Sodium 136 Potassium 3.3 L Chloride 104 Carbon Dioxide 26.0 Anion Gap 6 BUN 10 Creatinine 0.76 Est GFR (MDRD) Af Amer 130 Est GFR (MDRD) Non-Af 107 BUN/Creatinine Ratio 13.2 Glucose 123 H Calcium 8.9 Troponin I High Sens 10 Urine Color Yellow Urine Clarity Clear Urine pH 7.0 Ur Specific [place] 1.005 Urine Protein Negative Urine Glucose (UA) Normal Urine Ketones Negative Urine Occult Blood 25 H Urine Nitrite Negative Urine Bilirubin Negative Urine Urobilinogen 1 H Ur Leukocyte Esterase Negative Urine RBC 0 SEEN Urine WBC 0 SEEN Ur Squamous Epith Cells 0 SEEN Urine Bacteria 0 SEEN Urine Mucus 0 SEEN Radiography X-Ray: Read by ED Physician Diagnostic Testing: Clinical Impression(s) from Imaging Studies Chest X-Ray 03/31/24 12:33 IMPRESSION: No radiographic evidence of acute cardiopulmonary disease. Left retrocardiac opacity could reflect hiatal hernia. Electronically Signed: Tomer Sky MD at 13:31 EDT , EKG Initial EKG: Comments: 79 bpm, sinus rhythm with PACs, right bundle branch block, reviewed and interpreted by attending ED physician <Dr. Leon Rodrigues MD - Last Filed: 03/31/24 21:19> [facility] Narrative Medical decision making narrative: I have personally performed a face to face assessment of the patient and have reviewed the EBRTA Note. I performed a substantive portion of the visit including all aspects of the following. My castano findings include: History is remarkable for generalized weakness. Sleeping on the couch for 1 month and decreased appetite. Patient is wearing sunglasses. 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 He recent saw ophthalmology and he has eczema of his lower lid on the right side. He denies fever or chills. He denies headache. He and his endorse trouble with fluency as well as slurred words. He denies chest pain. He denies shortness of breath. He denies abdominal pain, nausea, vomit diarrhea. Denies black or maroon-colored stool. Patient endorses generalized weakness. He has not noted a rash. Patient does have history of reflux. He states if he eats things he should not he does get heartburn and reflux symptoms at night. He denies urologic symptoms. Exam is patient is lying comfortably on the examination cot. Is wearing sunglasses. HEENT exam is remarkable for the eczema. Otherwise his HEENT exam is normal. Neck is supple. Trachea is midline. Lungs are clear to auscultation. Breath sounds are symmetric. Heart is regular. Rate is normal. No murmur, gallop or rub. Abdomen soft nontender. No palp muscle mass or abdominal bruit. Alert orient x 3. Cranials 2 through 12 are intact. Motor 5/5. Sensations intact. There is no clonus Babinski sign. There is no dysmetria. Patient's affect is flat. There is no cogwheel rigidity. mentioned concern for Parkinson's disease. When asked to perform certain activities he does have a tremor in his upper extremities. It is not a classic pill-rolling motion that is associated with Parkinson's disease. Medical Decision Making differential diagnosis includes psychiatric, autoimmune, anemia, possible neurologic. Workup was undertaken. Other additions or changes: [None] Lab Data Labs: Laboratory Results - last 24 hr 03/31/24 03/31/24 11:35 13:30 WBC 7.0 RBC 4.81 Hgb 16.0 Hct 44.9 MCV 93.3 MCH 33.3 H MCHC 35.6 RDW Std Deviation 42.9 RDW Coeff of Jay 12.4 Plt Count 199 MPV 9.4 Immature Gran % (Auto) 1.000 H Neut % (Auto) 77.0 H Lymph % (Auto) 14.0 L [place] % (Auto) 6.7 Eos % (Auto) 0.7 Baso % (Auto) 0.6 Absolute Neuts (auto) 5.4 Absolute Lymphs (auto) 0.98 Nucleated RBC % 0 Sodium 136 Potassium 3.3 L Chloride 104 Carbon Dioxide 26.0 Anion Gap 6 BUN 10 Creatinine 0.76 Est GFR (MDRD) Af Amer 130 Est GFR (MDRD) Non-Af 107 BUN/Creatinine Ratio 13.2 Glucose 123 H Calcium 8.9 Troponin I High Sens 10 Urine Color Yellow Urine Clarity Clear Urine pH 7.0 Ur Specific [place] 1.005 Urine Protein Negative Urine Glucose (UA) Normal Urine Ketones Negative Urine Occult Blood 25 H Urine Nitrite Negative Urine Bilirubin Negative Urine Urobilinogen 1 H Ur Leukocyte Esterase Negative Urine RBC 0 SEEN Urine WBC 0 SEEN Ur Squamous Epith Cells 0 SEEN Urine Bacteria 0 SEEN Urine Mucus 0 SEEN Radiography Diagnostic Testing: Clinical Impression(s) from Imaging Studies Chest X-Ray 03/31/24 12:33 IMPRESSION: No radiographic evidence of acute cardiopulmonary disease. Left retrocardiac opacity could reflect hiatal hernia. Electronically Signed: Tomer Sky MD at 13:31 EDT , Discharge Plan Triage Chief Complaint: Weakness ED Midlevel Provider: Nohelia Haddad ED Provider: Leon Rodrigues Dx/Rx/DC Orders Clinical Impression: Weakness, Alcohol abuse, Depressed Instructions: ED Depression, ED Weakness (Uncertain Cause), ED Alcohol Abuse Prescriptions: New sertraline [Zoloft] 25 mg tablet 25 mg PO DAILY Qty: 30 0RF No Action lorazepam 1 MG tablet 1 mg PO DAILY PRN PRN (Reason: Anxiety) Patient Comments: ANXIETY esomeprazole magnesium [Nexium] 40 MG capsule 40 mg PO DAILY Patient Comments: ACID REFLUX amlodipine-valsartan [Exforge] 1 TAB tablet 160 mg PO DAILY Patient Comments: HEART/BLOOD PRESSURE cholecalciferol (vitamin D3) [Vitamin D3] 1,000 UNIT capsule 1 cap PO QWEEK Patient Comments: PT REPORTS HE TAKES 1 CAPSULE EVERY 3 DAYS VITAMIN multivitamin,ey-[id number]-[id number] [Therems-M] 1 TABLET tablet 1 tab PO DAILYCM Qty: 30 0RF Patient Comments: VITAMIN escitalopram oxalate 20 MG tablet 20 mg PO DAILY oxycodone-acetaminophen [oxycodone-acetaminophen] 5-325 mg tablet 1 tab PO Q6H PRN PRN (Reason: Pain) 3 Days Qty: 12 0RF Primary Care Provider: Rachele Pratt Referrals: Rachele Pratt NP-C [Primary Care Provider] - Activity Restrictions/Additional Instructions: Please return for any worsening of your symptoms or if you decide you would like inpatient detox. Disposition Disposition: Home, Self Care Discharge Date/Time: 03/31/24 17:10
[2024-03-31 11:47] LABS: Absolute Lymphocyte Count 0.98 X10^3/uL (0.83-4.51); Absolute Neutrophil Count 5.4 X10^3/uL (2.0-7.7); Basophil# 0.04 X10^3/uL; Basophil% 0.6 % (0-1); Eosinophil# 0.05 X10^3/uL; Eosinophils% 0.7 % (0-5); Hematocrit 44.9 % (40-54); Lymphocyte # 0.98 X10^3/ul (0.83-4.51); Mean Corp Hgb Conc 35.6 g/dL (32-36); Mean Corpuscular Hgb 33.3 pg (27.0-32.0); Mean Corpuscular Volume 93.3 fL (80-94); Mean Platelet Vol. 9.4 fl (6.2-12.0); Monocyte# 0.47 X10^3/uL; Monocyte% 6.7 % (0-10); NRBC Flagged by Analyzer 0 % (0-5); Neutrophil # 5.37 X10^3/uL (2.7-7.7); Platelet Count 199 K/mm3 (150-450); RBC Distribution Width CV 12.4 % (11.6-14.6); RBC Distribution Width SD 42.9 fl (35.1-43.9); Red Blood Count 4.81 M/mm3 (4.6-6.2)
[2024-03-31 12:00] LABS: Anion Gap 6 (5-15); BUN 10 mg/dL (7-18); BUN/Creat Ratio 13.2 RATIO (10-20); Calcium,Total 8.9 mg/dL (8.5-10.1); Chloride 104 mmol/L (98-107); Creatinine, Serum 0.76 mg/dL (0.70-1.30); EST Glomerular Filtration Rate 107 mL/min (>60); Est Glom Filt Rate - Afr Amer 130 mL/min (>60); Glucose 123 mg/dL (74-106); Potassium 3.3 mmol/L (3.5-5.1); Sodium Level 136 mmol/L (136-145); Troponin-I HS 10 pg/mL (3.0-78.0)
[2024-03-31] MEDS: 0.9% Normal Saline (500mL Bag) 500 ML 999 ML IV (12:12)
[2024-03-31] MEDS: LORazepam 0.5 MG Tablet PO (12:18)
[2024-03-31] MEDS: Potassium Chloride Oral Tablet 20 MEQ 40 MEQ PO (12:18)
--- NOTE | 2024-03-31 12:33 | RAD_ITS ---
INDICATION: SOB EXAMINATION/TECHNIQUE: X-RAY - XR Chest 2 Views COMPARISON: No relevant prior comparison study available FINDINGS: LINES/DEVICES: None. LUNGS: No consolidation, edema or effusion. No pneumothorax. MEDIASTINUM AND CARDIOVASCULAR STRUCTURES: The cardiac silhouette is within normal limits. Retrocardiac opacity could reflect small hiatal hernia although not seen on the lateral view. BONES AND SOFT TISSUES: Unremarkable. RAD/Chest PA and Lateral IMPRESSION: No radiographic evidence of acute cardiopulmonary disease. Left retrocardiac opacity could reflect hiatal hernia. Electronically Signed: Tomer Sky MD at 13:31 EDT ,
[2024-03-31 13:08] VITALS: BP 136/79; PULSE 76; RESP 18; TEMP 36.6; O2SAT 98
[2024-03-31 14:03] LABS: Bacteria 0 SEEN /hpf (None Seen); Mucous, Urine 0 SEEN /hpf (<or=2+); Red Blood Cells-Urine 0 SEEN /hpf (0-5); Squamous Epithelial Cells - UA 0 SEEN /hpf (0-5); White Blood Cells 0 SEEN /hpf (0-5)
[2024-03-31 14:09] LABS: Color, Urine Yellow (Yellow); Glucose, Dipstick Normal (Normal); Ketone-Dipstick Negative (Negative); Leukocyte Esterase-Dipstick Negative /ul (Negative); Nitrite-Dipstick Negative (Negative); Occult Blood-Urine 25 /ul (Negative); Protein-Dipstick Negative (Negative); Specific Gravity, Urine 1.005 (1.002-1.030); Urine Bilirubin Dipstick Negative (Negative); Urine Clarity Clear (Clear); Urine Urobilinogen 1 mg/dl (Normal)
[2024-03-31 14:22] VITALS: BP 144/93; PULSE 83; RESP 16; O2SAT 97
[2024-03-31 16:59] VITALS: BP 162/96; PULSE 83; RESP 18; TEMP 36.4; O2SAT 98
== END 2024-03-31 17:10 | disposition home or self-care (01) ==
PROVIDERS: Physician Assistant; Emergency Provider Emergency Medicine; PCP Nurse Practitioner Family; Visit Provider Emergency Medicine
DX: R53.1 Weakness (principal); L30.9 Dermatitis, unspecified; I10 Essential (primary) hypertension; F10.10 Alcohol abuse, uncomplicated; F32.A Depression, unspecified; F17.200 Nicotine dependence, unspecified, uncomplicated; Z79.899 Other long term (current) drug therapy
CPT/HCPCS: 51702; 71046; 80048; 81001; 84484; 85025; 93005; 96360; 99283; J7030; J7040

== ENCOUNTER 2024-04-07 12:41 | Inpatient (IN) | payer MEDICARE, OTHER, SELFPAY ==
[2024-04-07 12:43] VITALS: BP 161/95; PULSE 68; RESP 18; TEMP 36.4; O2SAT 96; BMI 27.3
--- NOTE | 2024-04-07 12:55 | RAD_ITS ---
INDICATION: fell 4 days ago, worsening back pain EXAMINATION/TECHNIQUE: X-RAY - XR Spine Lumbar 2 or 3 Views COMPARISON: None. FINDINGS: VERTEBRAE: Vertebral body height and alignment maintained throughout the lumbar spine. Chronic wedging at T12 and contour deformity of the inferior endplate of T12. Marginal osteophytes noted at multiple levels. Facet hypertrophic changes from L3 to S1. The visualized sacrum and sacroiliac joints have normal appearance. Extensive osteophytic changes involving the LEFT hip. DISCS: Disc spaces are maintained. INCLUDED ABDOMEN: Included bowel gas pattern is non-obstructive. RAD/Lumbar Spine 2 or 3 Views IMPRESSION: 1. Chronic wedging at T12. Mild osteophyte formation at multiple levels. 2. No fractures or destructive bony process. No malalignment. 3. Facet hypertrophic changes from L3 to S1. Electronically Signed: Jeffrey Guillory MD at 17:30 EDT ,
--- NOTE | 2024-04-07 13:01 | EDS_ITS ---
HPI History of Present Illness Chief Complaint: Back Narrative Narrative: 74-year-old male past medical history of alcohol abuse, recently diagnosed with depression, presents via EMS with his because of intractable back pain. He has had history of frequent falls, fell in October, and was actually seen in the emergency department approximately 5 to 6 days ago and was diagnosed with urinary retention. He has a Godinez catheter in place. He also complains of a generalized weakness. His states that he was unable to even get off the couch today. They state that he has been trying to get [facility] for his back pain and generalized weakness. He has increased back pain that is worse with transferring and trying to sit up. He denies any fevers or chills, no other symptoms. [facility] Medical History HTN (hypertension) Home Medications amlodipine 10 mg-valsartan 160 mg tablet (Exforge) 160 mg PO DAILY 07/01/14 [History Last Taken Unknown] cholecalciferol (vitamin D3) 25 mcg (1,000 unit) capsule (Vitamin D3) 1 cap PO QWEEK 07/01/14 [History Last Taken Unknown] esomeprazole magnesium 40 mg capsule,delayed release (Nexium) 40 mg PO DAILY 07/01/14 [History Last Taken Unknown] lorazepam 1 mg tablet 1 mg PO DAILY PRN PRN Anxiety 07/01/14 [History Last Taken 11/08/16 16:00] multivitamin,fp-kiof-ucajcukh 27 mg-0.4 mg tablet (Therems-M) 1 tab PO DAILYCM ##30 07/03/14 [Rx Last Taken Unknown] escitalopram oxalate 20 mg tablet 20 mg PO DAILY 11/08/16 [History Last Taken Unknown] oxycodone-acetaminophen 5 mg-325 mg tablet 1 tab PO Q6H PRN PRN Pain 3 days #12 TABLETS 11/11/23 [Rx Last Taken Unknown] sertraline 25 mg tablet (Zoloft) 25 mg PO DAILY #30 tabs 03/31/24 [Rx Last Taken Unknown] Allergy/AdvReac Type Severity Reaction Status Date / Time No Known Allergies Allergy Verified 04/07/24 12:54 Social History Smoking Status: Light Smoker (<10/day) ROS ROS ED ROS Narrative Patient complains of generalized weakness that has been ongoing for weeks to months. He has pain in his back but denies any loss of bowel or bladder, and no pain when remaining still. It is worsened with any movement of his low back. No fevers or chills, no nausea or vomiting. No chest pain or shortness of breath. EXAM Physical Exam Narrative Exam Narrative: Afebrile. Vital signs noted. Regular rate and rhythm. Lungs clear to auscultation bilaterally. Abdomen soft nontender with normoactive bowel sounds. Neurovascularly intact to the bilateral lower extremities with patellar DTRs equal and symmetric. EHL intact bilaterally. Palpable dorsalis pedis pulses bilaterally. Flexion extension at hip and knee intact bilaterally as well. Palpation of the lumbar spine reveals mild tenderness to palpation in the midline, but no step-off. Const Vital Signs: 04/07/24 12:43 04/07/24 14:41 Temperature 97.6 F L Temperature Source Temporal Pulse Rate 68 82 Respiratory Rate 18 18 Blood Pressure 161/95 H 144/87 H Blood Pressure Mean 117 106 Pulse Ox 96 97 Oxygen Delivery Method Room Air Room Air MDM MDM MDM Narrative Medical decision making narrative: I reviewed the patient's prior ED visit. His generalized weakness has been progressing for weeks to months. To the point where he and his state that he is afraid that when she tries to help him off the couch because he cannot stand independently, that he would end up hurting her. They state that he fell on Tuesday, approximately 5 days ago, and while he did not hit his head or lose consciousness, he had trouble getting up by himself and it took him 10 to 15 minutes. He is having continued back pain so I do feel that x-rays of the lumbar spine are indicated to help rule out compression fracture. I reviewed the patient's laboratory work and he has normal white count of 10.1, hemoglobin slightly hemoconcentrated at 17.0 with hematocrit 48.1, platelet count normal at 221. Review of his electrolyte panel his sodium was slightly low at 135 with potassium 3.4, BUN normal at 17 with creatinine 1.08. Glucose is appropriately elevated at 116 with a normal anion gap of 9 so I have low suspicion for any diabetic ketoacidosis. High-sensitivity troponin is 11. Patient does have an indwelling Godinez catheter. There are 10-25 WBCs with 5-10 RBCs and 3+ bacteria. There are 5-10 squamous epithelial cells, this is a catheter specimen. He will be treated as complicated UTI and urine culture was sent. He was started on a gram of Rocephin intravenously. On his CMP in review he has an elevated bilirubin of 2.6 but is chronically elevated. His LFTs are elevated as well but they have been slightly elevated in the past. I feel this is consistent with his alcohol abuse that is in his problem list. X-rays of the lumbar spine interpreted by myself show no evidence of acute fracture, but there may be compression fracture at T12 when compared to previous x-rays from remote x-rays. Patient requested something for analgesia so he was administered morphine and Zofran. Just prior to this, started having left groin pain that he states started happening last night but was improved with Tylenol. Obtained up to raise of the left hip and interpreted themselves independently. While there is no obvious pelvic or hip fracture, or dislocation, there are arthritic changes within the left hip. At this point in time, given his stability and intractable low back pain with frequent falls I discussed the patient with the hospitalist for observation. I discussed the patient with Dr. Aguirre. As of now, patient will be placed on observation, but there is a possibility that he may require inpatient hospitalization given the osteoarthritis of his left hip. He is in stable condition. History & Record Review Discussion w/independent historian: Patient and Family (Spouse) Lab Data Attestation: I reviewed the patient's lab results. Labs: Laboratory Results - last 24 hr 04/07/24 13:00 WBC 10.1 RBC 5.22 Hgb 17.0 H Hct 48.1 MCV 92.1 MCH 32.6 H MCHC 35.3 RDW Std Deviation 40.7 RDW Coeff of Jay 12.0 Plt Count 226 MPV 9.2 Immature Gran % (Auto) 1.000 H Neut % (Auto) 82.9 H Lymph % (Auto) 8.0 L [place] % (Auto) 7.0 Eos % (Auto) 0.6 Baso % (Auto) 0.5 Absolute Neuts (auto) 8.4 H Absolute Lymphs (auto) 0.81 L Nucleated RBC % 0 Sodium 135 L Potassium 3.4 L Chloride 101 Carbon Dioxide 25.0 Anion Gap 9 BUN 17 Creatinine 1.08 Estim Creat Clear Calc 62.90 Est GFR (MDRD) Af Amer 86 Est GFR (MDRD) Non-Af 71 BUN/Creatinine Ratio 15.7 Glucose 116 H Calcium 9.0 Total Bilirubin 2.60 H AST 39 H ALT 69 H Alkaline Phosphatase 76 Troponin I High Sens 11 Total Protein 7.7 Albumin 3.6 Globulin 4.1 Albumin/Globulin Ratio 0.9 Urine Color Nelsy Urine Clarity Sl. Cloudy Urine pH 6.0 Ur Specific [place] 1.020 Urine Protein 30 H Urine Glucose (UA) Normal Urine Ketones 150 A* Urine Occult Blood 150 H Urine Nitrite Negative Urine Bilirubin 3 H Urine Urobilinogen 12 H Ur Leukocyte Esterase 500 H Urine RBC 5-10 SEEN Urine WBC 10-25 SEEN Ur Squamous Epith Cells 5-10 SEEN Urine Bacteria 3+ Urine Mucus 0 SEEN Discharge Plan Dx/Rx/DC Orders Clinical Impression: Godinez catheter present, Intractable low back pain, Complicated UTI (urinary tract infection), Frequent falls, Weakness, Osteoarthritis of left hip Disposition Disposition: Acute Care [facility]
[2024-04-07 13:05] LABS: Absolute Lymphocyte Count 0.81 X10^3/uL (0.83-4.51); Absolute Neutrophil Count 8.4 X10^3/uL (2.0-7.7); Basophil# 0.05 X10^3/uL; Basophil% 0.5 % (0-1); Eosinophil# 0.06 X10^3/uL; Eosinophils% 0.6 % (0-5); Hematocrit 48.1 % (40-54); Lymphocyte # 0.81 X10^3/ul (0.83-4.51); Mean Corp Hgb Conc 35.3 g/dL (32-36); Mean Corpuscular Hgb 32.6 pg (27.0-32.0); Mean Corpuscular Volume 92.1 fL (80-94); Mean Platelet Vol. 9.2 fl (6.2-12.0); Monocyte# 0.71 X10^3/uL; NRBC Flagged by Analyzer 0 % (0-5); Neutrophil # 8.37 X10^3/uL (2.7-7.7); Neutrophil % 82.9 % (47-70); Platelet Count 226 K/mm3 (150-450); RBC Distribution Width SD 40.7 fl (35.1-43.9); Red Blood Count 5.22 M/mm3 (4.6-6.2); White Blood Count 10.1 K/mm3 (4.4-11.0)
[2024-04-07 13:08] LABS: Mucous, Urine 0 SEEN /hpf (<or=2+)
[2024-04-07 13:09] LABS: Color, Urine Amber (Yellow); Glucose, Dipstick Normal (Normal); Leukocyte Esterase-Dipstick 500 /ul (Negative); Nitrite-Dipstick Negative (Negative); Occult Blood-Urine 150 /ul (Negative); Protein-Dipstick 30 mg/dl (Negative); Urine Clarity Sl. Cloudy (Clear); Urine Urobilinogen 12 mg/dl (Normal)
[2024-04-07 13:23] LABS: ALB/GLOB Ratio 0.9 RATIO (0.9-2.4); AST(SGOT) 39 U/L (15-37); Alanine Aminotransfer ALT/SGPT 69 U/L (16-61); Albumin, Serum 3.6 g/dL (3.2-5.0); Alkaline Phosphatase 76 U/L (45-117); Anion Gap 9 (5-15); BUN 17 mg/dL (7-18); BUN/Creat Ratio 15.7 RATIO (10-20); Chloride 101 mmol/L (98-107); Creatinine, Serum 1.08 mg/dL (0.70-1.30); EST Glomerular Filtration Rate 71 mL/min (>60); Est Glom Filt Rate - Afr Amer 86 mL/min (>60); Globulin 4.1 g/dL (2.2-4.2); Glucose 116 mg/dL (74-106); Potassium 3.4 mmol/L (3.5-5.1); Protein, Total 7.7 g/dL (6.4-8.2); Sodium Level 135 mmol/L (136-145); Troponin-I HS 11 pg/mL (3.0-78.0); Urine Bilirubin Dipstick 3 mg/dL (Negative)
[2024-04-07 13:25] LABS: Ketone-Dipstick 150 mg/dl (Negative)
[2024-04-07] MEDS: 0.9% Normal Saline (1000mL) 1,000 ML 150 ML IV (13:25)
[2024-04-07 13:26] LABS: Bacteria 3+ /hpf (None Seen); Red Blood Cells-Urine 5-10 SEEN /hpf (0-5); Squamous Epithelial Cells - UA 5-10 SEEN /hpf (0-5); White Blood Cells 10-25 SEEN /hpf (0-5)
[2024-04-07] MEDS: Ceftriaxone 1 GM/50 ML BAG IV (14:04)
[2024-04-07] MEDS: Morphine 4 MG/ML Syringe IV (14:11)
[2024-04-07] MEDS: Ondansetron 4 MG/2 ML Vial IV (14:11)
--- NOTE | 2024-04-07 14:17 | ED.RN ---
pt complaining of 10 out of 10 left groin pain
--- NOTE | 2024-04-07 14:21 | RAD_ITS ---
STUDY: X-RAY - PELVIS AND LEFT HIP REASON FOR EXAM: Male, 74 years old. Pain TECHNIQUE: 3 views of the pelvis and hip. COMPARISON: None. FINDINGS: There is a normal bowel gas pattern. Normal visualized soft tissue structures. Normal bilateral iliac wings, sacroiliac joints and visualized sacrum. Normal bilateral superior and inferior pubic rami. Normal pubic symphysis. Normal bilateral ischial tuberosities. There are osteoarthritic changes of the femoral head with marginal osteophyte formation. There is flattening of the femoral head. There is osteoarthritic spur formation of the acetabular rim. There is severe articular joint space narrowing of the hip. There is no discrete fracture seen. RAD/HIP, UNI W/ Pelvis 2-3 Views IMPRESSION: Advanced arthritic change with flattening of the femoral head. No definite fracture seen. Electronically Signed: Kevin Ortiz MD at 15:44 EDT ,
[2024-04-07 14:41] VITALS: BP 144/87; PULSE 82; RESP 18; O2SAT 97
--- NOTE | 2024-04-07 15:05 | HP.PCM.HOS_ITS ---
HPI - General General Date of Admission: 04/07/24 Date of Service: 04/07/24 Chief Complaint: Intractable low back pain with worsening debility HPI Narrative WILBERT MCWILLIAMS, is a 74 M who presented to [facility] ED on 04/07/2024 with intractable low back pain and worsening debility. Saw patient at bedside in the ED, present. Patient was laying fairly comfortably in bed, conversing normally, in no acute distress. Patient lives at home with his . Has known history of low back pain and left hip pain with osteoarthritis. Over the past several months, notes that he has had worsening difficulty with ambulation, difficulty with balance with several small falls and worsening generalized weakness. Has gotten to the point where he is barely able to get himself off the couch. does note that patient has been fairly depressed recently and his motivation for getting up and moving around has been fairly poo r, was recently started on an antidepressant medication. He also has a history of alcohol abuse. Had previously quit drinking but was seen in the ED on 03/31 for similar concerns and noted that he was back to drinking about 1 pint of whiskey daily. Notably he reports minimal alcohol intake since returning home in the ED on 03/31. Patient denies any low back or hip pain at rest currently. Denies any fevers or chills. Denies any chest pain, shortness of breath, abdominal pain or distention. Vitals in ED notable for hypertension to 150s to 160s, otherwise normal sinus rhythm in 70s to 80s, afebrile and satting well on room air. CBC with hemoglobin 17.0 (baseline 15-16), WBC count 10, platelets 226. BMP with sodium 135, potassium 3.4, creatinine 1.08 (baseline 0.6-0.8), otherwise benign. LFTs with T. bili 2.60, ALT 69, AST 39, alk phos 76, total protein 7.7, albumin 3.6. UA showed 500 leukocyte esterase, negative nitrites, 3+ bacteria, 150 urine ketones; notably his UA from 03/31 was essentially normal. Hip/pelvis x-ray showed severe left hip articular joint space narrowing, no fracture noted. L- spine x-ray showed chronic wedging at T12, facet hypertrophic changes from L3- S1, no fractures or destructive bony process. Notably, patient had hip/pelvis x-ray done in 10/2023 that again showed severe OA of left hip with possible avascular necrosis. Will be admitted for further management. [facility] Medical History HTN (hypertension) Home Medications amlodipine 10 mg-valsartan 160 mg tablet (Exforge) 160 mg PO DAILY 07/01/14 [ History Last Taken Unknown] cholecalciferol (vitamin D3) 25 mcg (1,000 unit) capsule (Vitamin D3) 1 cap PO QWEEK 07/01/14 [History Last Taken Unknown] esomeprazole magnesium 40 mg capsule,delayed release (Nexium) 40 mg PO DAILY 07/01/14 [History Last Taken Unknown] lorazepam 1 mg tablet 1 mg PO DAILY PRN PRN Anxiety 07/01/14 [History Last Taken 11/08/16 16:00] multivitamin,ck-gfpq-uovudgha 27 mg-0.4 mg tablet (Therems-M) 1 tab PO DAILYCM ##30 07/03/14 [Rx Last Taken Unknown] escitalopram oxalate 20 mg tablet 20 mg PO DAILY 11/08/16 [History Last Taken Unknown] oxycodone-acetaminophen 5 mg-325 mg tablet 1 tab PO Q6H PRN PRN Pain 3 days #12 TABLETS 11/11/23 [Rx Last Taken Unknown] sertraline 25 mg tablet (Zoloft) 25 mg PO DAILY #30 tabs 03/31/24 [Rx Last Taken Unknown] Allergy/AdvReac Type Severity Reaction Status Date / Time No Known Allergies Allergy Verified 04/07/24 12:54 Social History Smoking Status: Former smoker ROS Constitutional Constitutional: Reports weakness; Denies chills, fatigue or fever(s) Cardiovascular Cardiovascular: Denies chest pain or edema Respiratory/Chest Respiratory/Chest: Denies shortness of breath at rest Gastrointestinal Gastrointestinal: Denies abdominal pain Genitourinary Genitourinary: Denies burning urination, difficulty urinating or dysuria Musculoskeletal Musculoskeletal: Reports arthralgias, back pain and joint pain; Denies myalgias Neurologic Neurologic: Denies dizziness, focal weakness, headache(s), numbness, paresthesias or tingling Vital Signs Vital Signs Vital Signs: 04/07/24 12:43 04/07/24 14:41 Temperature 97.6 F L Temperature Source Temporal Pulse Rate 68 82 Respiratory Rate 18 18 Blood Pressure 161/95 H 144/87 H Blood Pressure Mean 117 106 Pulse Ox 96 97 Oxygen Delivery Method Room Air Room Air Weight Weight: 86.5 kg Body Mass Index (BMI) 27.3 Physical Exam Const alert, oriented x3 and no apparent distress Constitutional Narrative: Elderly male, somewhat chronically ill-appearing, otherwise laying fairly comfortably in bed, conversing normally, in no acute distress. General Appearance: cooperative and comfortable HEENT normocephalic, head/scalp atraumatic, hearing grossly normal bilaterally and nasal mucous membranes and turbinates normal Eyes PERRL, EOMs intact bilaterally and conjunctivae normal Neck full ROM Chest inspection of chest normal Resp normal respiratory effort, normal air movement, no use of accessory muscles and clear to auscultation bilaterally Cardio regular rate, regular rhythm, no murmurs and peripheral pulses 2+ throughout GI normal to inspection, nondistended, normoactive bowel sounds, soft to palpation, non-tender and non-distended Back/Spine Back/Spine Narrative: No significant tenderness to palpation in L-spine or left hip. Did not attempt motion. Extremity normal to inspection and no pedal edema Skin no rashes or lesions noted Neuro Speech: speech normal Psych mental status grossly normal Results Lab / Micro Data 04/07/24 13:00 04/07/24 13:00 Labs: Laboratory Results - last 24 hr 04/07/24 13:00: WBC 10.1, RBC 5.22, Hgb 17.0 H, Hct 48.1, MCV 92.1, MCH 32.6 H, MCHC 35.3, RDW Std Deviation 40.7, RDW Coeff of Jay 12.0, Plt Count 226, MPV 9.2, Immature Gran % (Auto) 1.000 H, Neut % (Auto) 82.9 H, Lymph % (Auto) 8.0 L, [place] % (Auto) 7.0, Eos % (Auto) 0.6, Baso % (Auto) 0.5, Absolute Neuts (auto) 8.4 H, Absolute Lymphs (auto) 0.81 L, Nucleated RBC % 0, Sodium 135 L, Potassium 3.4 L, Chloride 101, Carbon Dioxide 25.0, Anion Gap 9, BUN 17, Creatinine 1.08, Estim Creat Clear Calc 62.90, Est GFR (MDRD) Af Amer 86, Est GFR (MDRD) Non-Af 71, BUN/Creatinine Ratio 15.7, Glucose 116 H, Calcium 9.0, Total Bilirubin 2.60 H, AST 39 H, ALT 69 H, Alkaline Phosphatase 76, Troponin I High Sens 11, Total Protein 7.7, Albumin 3.6, Globulin 4.1, Albumin/Globulin Ratio 0.9, Urine Color Nelsy, Urine Clarity Sl. Cloudy, Urine pH 6.0, Ur Specific [place] 1.020, Urine Protein 30 H, Urine Glucose (UA) Normal, Urine Ketones 150 A*, Urine Occult Blood 150 H, Urine Nitrite Negative, Urine Bilirubin 3 H, Urine Urobilinogen 12 H, Ur Leukocyte Esterase 500 H, Urine RBC 5-10 SEEN, Urine WBC 10-25 SEEN, Ur Squamous Epith Cells 5-10 SEEN, Urine Bacteria 3+, Urine Mucus 0 SEEN Assessment & Plan Assessment/Plan (1) Osteoarthritis of left hip: (2) Frequent falls: (3) Complicated UTI (urinary tract infection): (4) Intractable low back pain: PLAN: Plan Patient is a 74-year-old male who presented [facility] ED on 04/07/2024 with intractable low back pain and worsening debility. 1. Intractable low back pain, severe left hip OA with concern for avascular necrosis, acute on chronic debility ? Admit under inpatient status to [facility]. PT/OT/case management consulted. Orthopedic surgery consulted. Left hip MRI ordered. Pain control with oxycodone 5 mg or 4 hours as needed and IV Dilaudid 0.5 mg every 4 hours as needed for now. Holding on Tylenol given elevated transaminases as noted below. 2. Elevated transaminases, history of alcoholic fatty liver disease ? T. bili 2.60, ALT 69, AST 39 on admit. Has history of mildly elevated transaminases but this is highest T. bili value recorded. Right upper quadrant ultrasound ordered for further evaluation. Suspect largely due to alcoholic fatty liver disease. INR 1.1. No other signs of alcoholic hepatitis or cirrhosis. Follow-up a.m. LFTs. 3. Suspected UTI, recent diagnosis of urinary retention with Godinez catheter placement ? Found to have acute urinary retention in ED on 03/31. UA negative at that time. Godinez catheter was placed with plan to follow-up outpatient with urology. UA infectious appearing on this admit. Urine culture pending. No prior urine cultures available in our system. Will treat with ceftriaxone for now. Notably, CT abdomen pelvis from 10/2023 showed prostatic calcifications but no BPH and normal bladder at that time. 4. History of alcohol abuse ? Minimal drinking noted since recent ED visit on 03/31, low concern for active alcohol withdrawal. Will hold off on starting CIWA protocol at this time. 5. Mild dehydration with concern for starvation ketosis ? UA with 150 ketones present, labs appeared somewhat hemoconcentrated on admit, creatinine mildly elevated from baseline. Started on maintenance IV fluids in the ED, will continue through tomorrow morning. Follow-up a.m. labs. 6. Mild hypokalemia ? Potassium 3.4 on admit. Magnesium ordered. Follow-up a.m. BMP. Replete as needed. Chronic medical conditions: ? Depression/anxiety: Was previously on escitalopram, recently started on sertraline, will continue this. Also on Ativan 0.5 mg twice daily as needed, on review of PDMP as at this filled regularly, will continue this. ? Hypertension: On home amlodipine?valsartan. Will continue home amlodipine, hold losartan for now, restart as needed. ? Tobacco abuse: Currently smoking less than 10 cigarettes/day per patient and . Long smoking history. Nicotine replacement therapy available as needed. DVT prophylaxis: Lovenox CODE STATUS: DNR CCA, DNI Expected disposition: SNF, TBD Total clinical time spent by myself addressing the patient's medical issues, reviewing all the data, and collaborating with patient's care team: 75 minutes. Charges/Coding Visit Charges Inpatient E&M: 40978 Init Hosp L3
--- NOTE | 2024-04-07 15:11 | NURSING ---
DR DENIS FOR DR RODGERS
--- NOTE | 2024-04-07 15:18 | NURSING ---
MED SURG OBS MOSTELLER UTI, WEAKNESS
[2024-04-07 16:00] VITALS: BP 152/93; PULSE 86; RESP 16; TEMP 36.1; O2SAT 97
[2024-04-07 16:54] LABS: International Normalized Ratio 1.1; Prothrombin Time (Protime)PT. 14.2 SECONDS (11.7-14.9)
[2024-04-07 17:24] VITALS: BP 165/78; PULSE 82; RESP 18; TEMP 37; O2SAT 99
[2024-04-07 17:56] VITALS: BMI 27.3
[2024-04-07 18:34] VITALS: BP 157/98; PULSE 70; RESP 18; TEMP 37.1; O2SAT 98
[2024-04-07 20:18] VITALS: BP 152/90; PULSE 63; RESP 18; TEMP 36.8; O2SAT 98
[2024-04-07] MEDS: HYDROmorphone 0.5 MG/0.5 ML SYRINGE IV (20:31)
[2024-04-07] MEDS: Lactated Ringers 1,000 ML 100 ML IV (20:32)
[2024-04-07] MEDS: amLODIPine 10 MG Tablet PO (23:13)
[2024-04-07] MEDS: MELATONIN 3 MG TABLET PO (23:14)
[2024-04-08] MEDS: LORazepam 1 MG Tablet 0.5 MG PO ×2 (00:24→13:12)
[2024-04-08] MEDS: Pantoprazole Sodium 40 MG Tablet PO ×2 (01:05→08:05)
[2024-04-08] MEDS: Mag Hydrox/Al Hydrox/Simeth 30 ML UDC PO (01:06)
[2024-04-08] MEDS: Lactated Ringers 1,000 ML 100 ML IV (05:30)
[2024-04-08 05:38] VITALS: BP 160/89; PULSE 77; RESP 18; TEMP 36.9; O2SAT 97
[2024-04-08 05:51] LABS: Hematocrit 43.7 % (40-54); Hemoglobin 15.5 g/dL (13.0-16.5); Mean Corp Hgb Conc 35.5 g/dL (32-36); Mean Corpuscular Hgb 32.9 pg (27.0-32.0); Mean Corpuscular Volume 92.8 fL (80-94); Mean Platelet Vol. 9.4 fl (6.2-12.0); Platelet Count 207 K/mm3 (150-450); RBC Distribution Width CV 12.1 % (11.6-14.6); RBC Distribution Width SD 41.8 fl (35.1-43.9); Red Blood Count 4.71 M/mm3 (4.6-6.2); White Blood Count 10.1 K/mm3 (4.4-11.0)
[2024-04-08 06:14] LABS: ALB/GLOB Ratio 0.8 RATIO (0.9-2.4); AST(SGOT) 25 U/L (15-37); Alanine Aminotransfer ALT/SGPT 60 U/L (16-61); Albumin, Serum 3.1 g/dL (3.2-5.0); Alkaline Phosphatase 71 U/L (45-117); Anion Gap 9 (5-15); BUN 14 mg/dL (7-18); BUN/Creat Ratio 13.7 RATIO (10-20); Calcium,Total 8.6 mg/dL (8.5-10.1); Chloride 104 mmol/L (98-107); Creatinine, Serum 1.02 mg/dL (0.70-1.30); EST Glomerular Filtration Rate 76 mL/min (>60); Est Glom Filt Rate - Afr Amer 92 mL/min (>60); Globulin 3.8 g/dL (2.2-4.2); Glucose 146 mg/dL (74-106); Potassium 3.2 mmol/L (3.5-5.1); Protein, Total 6.9 g/dL (6.4-8.2); Sodium Level 134 mmol/L (136-145)
[2024-04-08] MEDS: Sertraline 50 MG Tablet 25 MG PO (08:05)
[2024-04-08] MEDS: Multivitamins,Ther W-Minerals Tablet 1 TABLET PO (08:05)
[2024-04-08] MEDS: amLODIPine 10 MG Tablet PO (08:13)
[2024-04-08] MEDS: Bisacodyl 5 MG Tablet 10 MG PO (08:21)
[2024-04-08] MEDS: Polyethylene Glycol 3350 17 GM PACKET PO (08:21)
[2024-04-08 10:05] VITALS: BP 164/92; PULSE 74; RESP 18; TEMP 36.3; O2SAT 98
[2024-04-08 10:09] VITALS: RESP 18
--- NOTE | 2024-04-08 10:41 | PCM.PN.HOSP ---
Subjective Subjective Still with fairly significant back pain that does not radiate down his legs, he states mostly central not paraspinal. Also complains of constipation Objective Data Objective Data Vital Signs: Vital Signs Temp Pulse Resp BP Pulse Ox O2 Del Method 97.3 F L 74 18 164/92 H 98 Room Air 04/08/24 10:05 04/08/24 10:05 04/08/24 10:09 04/08/24 10:05 04/08/24 10:04/08/24 10:09 Oxygen Delivery Method Room Air Weight: 190 lb 11.198 oz Body Mass Index (BMI) 27.3 Intake & Output: Intake and Output for Last 24 Hours 04/07/24 04/08/24 04/09/24 03:59 03:59 03:59 Intake Total 1630 / 1630 896.67 / 896.67 Output Total 200 / 200 225 / 225 Balance 1430 / 1430 671.67 / 671.67 Lab / Micro Data 04/08/24 05:24 04/08/24 05:24 Labs: Laboratory Results - last 24 hr 04/07/24 13:00: WBC 10.1, RBC 5.22, Hgb 17.0 H, Hct 48.1, MCV 92.1, MCH 32.6 H, MCHC 35.3, RDW Std Deviation 40.7, RDW Coeff of Jay 12.0, Plt Count 226, MPV 9.2, Immature Gran % (Auto) 1.000 H, Neut % (Auto) 82.9 H, Lymph % (Auto) 8.0 L, [place] % (Auto) 7.0, Eos % (Auto) 0.6, Baso % (Auto) 0.5, Absolute Neuts (auto) 8.4 H, Absolute Lymphs (auto) 0.81 L, Nucleated RBC % 0, Sodium 135 L, Potassium 3.4 L, Chloride 101, Carbon Dioxide 25.0, Anion Gap 9, BUN 17, Creatinine 1.08, Estim Creat Clear Calc 62.90, Est GFR (MDRD) Af Amer 86, Est GFR (MDRD) Non-Af 71, BUN/Creatinine Ratio 15.7, Glucose 116 H, Calcium 9.0, Total Bilirubin 2.60 H, AST 39 H, ALT 69 H, Alkaline Phosphatase 76, Troponin I High Sens 11, Total Protein 7.7, Albumin 3.6, Globulin 4.1, Albumin/Globulin Ratio 0.9, Urine Color Nelsy, Urine Clarity Sl. Cloudy, Urine pH 6.0, Ur Specific [place] 1.020, Urine Protein 30 H, Urine Glucose (UA) Normal, Urine Ketones 150 A*, Urine Occult Blood 150 H, Urine Nitrite Negative, Urine Bilirubin 3 H, Urine Urobilinogen 12 H, Ur Leukocyte Esterase 500 H, Urine RBC 5-10 SEEN, Urine WBC 10-25 SEEN, Ur Squamous Epith Cells 5-10 SEEN, Urine Bacteria 3+, Urine Mucus 0 SEEN 04/07/24 15:00: PT 14.2, INR 1.1 04/08/24 05:24: WBC 10.1, RBC 4.71, Hgb 15.5, Hct 43.7, MCV 92.8, MCH 32.9 H, MCHC 35.5, RDW Std Deviation 41.8, RDW Coeff of Jay 12.1, Plt Count 207, MPV 9.4, Sodium 134 L, Potassium 3.2 L, Chloride 104, Carbon Dioxide 21.0, Anion Gap 9, BUN 14, Creatinine 1.02, Estim Creat Clear Calc 66.60, Est GFR (MDRD) Af Amer 92, Est GFR (MDRD) Non-Af 76, BUN/Creatinine Ratio 13.7, Glucose 146 H, Calcium 8.6, Total Bilirubin 1.70 H, AST 25, ALT 60, Alkaline Phosphatase 71, Total Protein 6.9, Albumin 3.1 L, Globulin 3.8, Albumin/Globulin Ratio 0.8 L Micro: Microbiology 04/07/24 13:00 Urine, Clean Catch Urine Culture - Preliminary GPC Poss Enterococcus sp Radiography Diagnostic Testing: Radiology Impression Lumbar Spine X-Ray 04/07/24 12:55 IMPRESSION: 1. Chronic wedging at T12. Mild osteophyte formation at multiple levels. 2. No fractures or destructive bony process. No malalignment. 3. Facet hypertrophic changes from L3 to S1. Electronically Signed: Jeffrey Guillory MD at 17:30 EDT , Hip/Pelvis X-Ray 04/07/24 14:21 IMPRESSION: Advanced arthritic change with flattening of the femoral head. No definite fracture seen. Electronically Signed: Kevin Ortiz MD at 15:44 EDT Reading Location ID and State: [address] [place] [address] , Service support , Physical Exam Narrative General: Alert, Oriented x3, Cooperative, No apparent distress HEENT: Atraumatic, PERRLA, EOMI, Normocephalic Oral: Moist Mucosa Neck: Supple, No JVD Lungs: Clear to auscultation, Normal air movement, No rhonchi, No wheeze, No rales Cardiovascular: Regular rate, Regular Rhythm, Normal S1, Normal S2, No murmurs Abdomen: Soft, Non Tender, Non-Distended, No Hepato-splenomegaly Extremities: No edema, Capillary Refill Less than 3 Seconds Skin: No rashes, No breakdown Musculoskeletal: No Tenderness to Palpation of Joints or Extremities Neurological: No focal neurological deficits, Motor Exam 5/5 strength throughout, Sensory exam intact to light touch and pain Psych/Mental Status: Normal Affect, Appropriate Assessment & Plan Assessment/Plan (1) Osteoarthritis of left hip: (2) Frequent falls: (3) Complicated UTI (urinary tract infection): (4) Intractable low back pain: PLAN: Plan 1. Intractable low back pain, severe left hip OA with concern for avascular necrosis, acute on chronic debility ? Admit under inpatient status to [facility] [place] [place]. PT/OT/case management consulted. Orthopedic surgery consulted. Left hip MRI ordered. Pain control with oxycodone 5 mg or 4 hours as needed and IV Dilaudid 0.5 mg every 4 hours as needed for now. Holding on Tylenol given elevated transaminases as noted below. ? Will add MiraLAX 2. Elevated transaminases, history of alcoholic fatty liver disease ? T. bili 2.60, ALT 69, AST 39 on admit. Has history of mildly elevated transaminases but this is highest T. bili value recorded. Right upper quadrant ultrasound ordered for further evaluation. Suspect largely due to alcoholic fatty liver disease. INR 1.1. No other signs of alcoholic hepatitis or cirrhosis. Follow-up a.m. LFTs. ? LFT elevation has resolved 3. Suspected UTI, recent diagnosis of urinary retention with Godinez catheter placement ? Found to have acute urinary retention in ED on 03/31. UA negative at that time. Godinez catheter was placed with plan to follow-up outpatient with urology. UA infectious appearing on this admit. Urine culture pending. No prior urine cultures available in our system. Will treat with ceftriaxone for now. Notably, CT abdomen pelvis from 10/2023 showed prostatic calcifications but no BPH and normal bladder at that time. ? Urine culture with greater than 100,000 colony-forming units of Enterococcus, will transition from Rocephin to IV ampicillin pending finalization 4. History of alcohol abuse ? Minimal drinking noted since recent ED visit on 03/31, low concern for active alcohol withdrawal. Will hold off on starting CIWA protocol at this time. 5. Mild dehydration with concern for starvation ketosis ? UA with 150 ketones present, labs appeared somewhat hemoconcentrated on admit, creatinine mildly elevated from baseline. Started on maintenance IV fluids in the ED, will continue through tomorrow morning. Follow-up a.m. labs. 6. Mild hypokalemia ? Potassium 3.4 on admit. Magnesium ordered. Follow-up a.m. BMP. Replete as needed. Chronic medical conditions: ? Depression/anxiety: Was previously on escitalopram, recently started on sertraline, will continue this. Also on Ativan 0.5 mg twice daily as needed, on review of PDMP as at this filled regularly, will continue this. ? Hypertension: On home amlodipine?valsartan. Will continue home amlodipine, hold losartan for now, restart as needed. ? Tobacco abuse: Currently smoking less than 10 cigarettes/day per patient and . Long smoking history. Nicotine replacement therapy available as needed. DVT: Lovenox Charges/Coding Visit Charges Inpatient E&M: 71769 Subs Hosp L2
[2024-04-08] MEDS: Ceftriaxone 1 GM/50 ML BAG IV (10:56)
[2024-04-08] MEDS: Enoxaparin 40 MG/0.4 ML Syringe SC (10:56)
[2024-04-08] MEDS: Ampicillin 1,000 MG in 0.9% Normal Saline (50mL MB+) 50 ML 150 MG IV ×3 (13:12→22:51)
--- NOTE | 2024-04-08 13:51 | MRI_ITS ---
ACR Level 3 findings have been noted. An addendum which confirms receipt of the report will follow. EXAM: MR LUMBAR SPINE WITHOUT INTRAVENOUS CONTRAST CLINICAL INDICATION: lower back pain TECHNIQUE: Multiplanar and multisequence MR images of the lumbar spine without intravenous contrast. Limited sagittal STIR of the mid to lower thoracic region is also performed. COMPARISON: Lumbar spine radiographs, 04/07/2024 FINDINGS: VERTEBRAE: T12 inferior endplate compression fracture with Schmorl''s node at the superior endplate of T12. Marrow edema associated with the inferior endplate. Approximately 33% vertebral body height loss anteriorly. No retropulsion of the posterior cortex and no fracture involving the pedicle/posterior elements. Multilevel facet arthrosis and endplate osteophytosis. No additional fracture in the lumbar region. Mild multilevel endplate degenerative signal changes in the lumbar spine. Degenerative changes in the cervical and thoracic spine are partially visualized on localization images. No spondylolisthesis. There is preservation of the normal lumbar lordosis. SPINAL CORD: No significant abnormality. Normal position and signal intensity of the conus medullaris. SOFT TISSUES: No significant abnormality. DISCS/SPINAL CANAL/NEURAL FORAMINA: T12-L1: Mild disc bulge and mild bilateral facet arthrosis. No significant spinal canal or neural foraminal stenosis. L1-L2: Mild disc bulge and mild bilateral facet arthrosis. No significant spinal canal stenosis or neural foraminal narrowing. L2-L3: Disc bulge with small superimposed central disc herniation and mild bilateral facet arthrosis. Mild spinal canal stenosis and mild bilateral neural foraminal narrowing. L3-L4: Disc bulge with superimposed central disc herniation and moderate bilateral facet arthrosis. Mild to moderate bilateral neural foraminal narrowing and mild to moderate spinal canal stenosis. Abutment without impingement of the traversing L4 nerve roots. L4-L5: Disc bulge with superimposed right central to subarticular disc herniation and moderate to severe bilateral facet arthrosis with ligamentum flavum thickening. Moderate bilateral neural foraminal narrowing and moderate spinal canal stenosis. Impingement of the left L5 nerve root and impingement of the right foraminal L4 nerve root. L5-S1: Disc bulge and moderate bilateral facet arthrosis. No discrete disc herniation. Mild spinal canal stenosis and mild right neural foraminal narrowing. Moderate to severe left neural foraminal stenosis with left L5 nerve root impingement. MRI/Spine Lumbar (Routine) IMPRESSION: 1. T12 inferior endplate compression fracture with Schmorl''s node at the superior endplate of T12. Marrow edema associated with the inferior endplate. Approximately 33% vertebral body height loss anteriorly. No retropulsion of the posterior cortex and no fracture involving the pedicle/posterior elements. 2. Multilevel degenerative changes with multilevel spinal canal and neural foraminal stenosis. Right L4 and left L5 nerve root impingement. Electronically Signed: Ezequiel Resendiz DO at 16:45 EDT ,
--- NOTE | 2024-04-08 14:05 | CON.PCM.OR_ITS ---
HPI Consult Data Date of Consult: 04/08/24 HPI Narrative HPI Narrative: WILBERT MCWILLIAMS, is a 74 M who was admitted to the hospital last night for worsening low back pain. I was consulted for left hip arthritis. I saw the patient in 312. He is resting comfortably in bed. He mentions of mid to low back pain, left flank pain, left groin pain. He denies any radiating pain to the lower extremities. He has had worsening difficulties with balance and falls at least twice a week over the last few months. His most recent fall was last Tuesday after which he has not attempted to ambulate. He is also being treated for UTI and urinary retention as of an ER visit about a week ago and was placed with a Godinez catheter indwelling. He is awaiting a urology consult. He does not take any medications for prostate enlargement. He has a family history of Parkinson's disease, but does not have a personal history of the same. He and his family mention of tremors in both upper extremities and dropping objects from both his hands. His handwriting has become sloppier. He denies any numbness in the hands and feet. He is nondiabetic. He denies any previous k nown strokes. He is not on any blood thinners. He mentions a few episodes of fecal incontinence due to not being able to reach the bathroom a few months ago but did not happen recently. More recently he has felt constipated. He denies any numbness in the perianal area. [facility] Medical History HTN (hypertension) Home Medications amlodipine 10 mg-valsartan 160 mg tablet (Exforge) 160 mg PO DAILY 07/01/14 [History Last Taken Unknown] cholecalciferol (vitamin D3) 25 mcg (1,000 unit) capsule (Vitamin D3) 1 cap PO QWEEK 07/01/14 [History Last Taken Unknown] esomeprazole magnesium 40 mg capsule,delayed release (Nexium) 40 mg PO DAILY 07/01/14 [History Last Taken 04/06/24] lorazepam 1 mg tablet 1 mg PO DAILY PRN PRN Anxiety 07/01/14 [History Last Taken 04/01/24] multivitamin,mb-novc-vcfuzlrm 27 mg-0.4 mg tablet (Therems-M) 1 tab PO DAILYCM ##30 07/03/14 [Rx Last Taken Unknown] oxycodone-acetaminophen 5 mg-325 mg tablet 1 tab PO Q6H PRN PRN Pain 3 days #12 TABLETS 11/11/23 [Rx Last Taken Unknown] sertraline 25 mg tablet (Zoloft) 25 mg PO DAILY #30 tabs 03/31/24 [Rx Last Taken 04/06/24] Allergy/AdvReac Type Severity Reaction Status Date / Time No Known Allergies Allergy Verified 04/07/24 12:54 Social History Smoking Status: Former smoker Vital Signs Vital Signs Vital Signs: 04/07/24 14:41 04/07/24 16:00 04/07/24 17:24 Temperature 97 F L 98.6 F Temperature Source Temporal Pulse Rate 82 86 82 Pulse Strength Respiratory Rate 18 16 18 Respiratory Effort Respiratory Depth Respiratory Pattern Blood Pressure 144/87 H 152/93 H 165/78 H Blood Pressure Mean 106 112 107 Blood Pressure Source Blood Pressure Position Blood Pressure Location Pulse Ox 97 97 99 Oxygen Delivery Method Room Air Room Air 04/07/24 18:34 04/07/24 20:18 04/07/24 20:22 Temperature 98.7 F 98.2 F Temperature Source Oral Oral Pulse Rate 70 63 Pulse Strength Respiratory Rate 18 18 Respiratory Effort Normal Non-Labored Respiratory Depth Normal Respiratory Pattern Normal Blood Pressure 157/98 H 152/90 H Blood Pressure Mean 117 110 Blood Pressure Source Monitor Monitor Blood Pressure Position Semi-Fowlers Semi-Fowlers Blood Pressure Location Right Arm Left Arm Pulse Ox 98 98 Oxygen Delivery Method Room Air Room Air Room Air 04/07/24 22:53 04/08/24 05:38 04/08/24 05:38 Temperature 98.5 F Temperature Source Oral Pulse Rate 77 Pulse Strength Respiratory Rate 18 Respiratory Effort Normal Non-Labored Respiratory Depth Normal Respiratory Pattern Normal Blood Pressure 160/89 H Blood Pressure Mean 112 Blood Pressure Source Monitor Blood Pressure Position Semi-Fowlers Blood Pressure Location Right Arm Pulse Ox 97 Oxygen Delivery Method Room Air Room Air Room Air 04/08/24 06:58 04/08/24 10:05 04/08/24 10:00 Temperature 97.3 F L Temperature Source Oral Pulse Rate 74 Pulse Strength Normal (2+) Respiratory Rate 18 Respiratory Effort Respiratory Depth Respiratory Pattern Blood Pressure 164/92 H Blood Pressure Mean 116 Blood Pressure Source Monitor Blood Pressure Position Semi-Fowlers Blood Pressure Location Right Arm Pulse Ox 98 Oxygen Delivery Method Room Air Room Air 04/08/24 10:09 Temperature Temperature Source Pulse Rate Pulse Strength Respiratory Rate 18 Respiratory Effort Normal Non-Labored Respiratory Depth Respiratory Pattern Blood Pressure Blood Pressure Mean Blood Pressure Source Blood Pressure Position Blood Pressure Location Pulse Ox Oxygen Delivery Method Room Air Weight Weight: 190 lb 11.198 oz Body Mass Index (BMI) 27.3 Physical Exam Narrative Examination of the back shows no spinous process tenderness or paraspinal tenderness. Patient points towards the left flank region for pain. He is able to turn in the bed without much discomfort. Neurologic evaluation of both upper and both lower extremity shows 5 x 5 power in all muscles normal sensations in all dermatomes. Justin's is negative bilaterally. Left triceps reflexes brisk. Bilateral knee reflexes are exaggerated. There is hypertonia in both lower extremities. Clonus could not be elicited. Romberg's and gait could not be tested. Examination of the hip shows no obvious tenderness. No pain with active straight leg raise test on either side. Lab / Micro Data 04/08/24 05:24 04/08/24 05:24 Labs: Laboratory Results - last 24 hr 04/07/24 15:00: PT 14.2, INR 1.1 04/08/24 05:24: WBC 10.1, RBC 4.71, Hgb 15.5, Hct 43.7, MCV 92.8, MCH 32.9 H, MCHC 35.5, RDW Std Deviation 41.8, RDW Coeff of Jay 12.1, Plt Count 207, MPV 9.4, Sodium 134 L, Potassium 3.2 L, Chloride 104, Carbon Dioxide 21.0, Anion Gap 9, BUN 14, Creatinine 1.02, Estim Creat Clear Calc 66.60, Est GFR (MDRD) Af Amer 92, Est GFR (MDRD) Non-Af 76, BUN/Creatinine Ratio 13.7, Glucose 146 H, Calcium 8.6, Total Bilirubin 1.70 H, AST 25, ALT 60, Alkaline Phosphatase 71, Total Protein 6.9, Albumin 3.1 L, Globulin 3.8, Albumin/Globulin Ratio 0.8 L Micro: Microbiology 04/07/24 13:00 Urine, Clean Catch Urine Culture - Preliminary GPC Poss Enterococcus sp Imaging Radiology Impression Lumbar Spine X-Ray 04/07/24 12:55 IMPRESSION: 1. Chronic wedging at T12. Mild osteophyte formation at multiple levels. 2. No fractures or destructive bony process. No malalignment. 3. Facet hypertrophic changes from L3 to S1. Electronically Signed: Jeffrey Guilloyr MD at 17:30 EDT , Hip/Pelvis X-Ray 04/07/24 14:21 IMPRESSION: Advanced arthritic change with flattening of the femoral head. No definite fracture seen. Electronically Signed: Kevin Ortiz MD at 15:44 EDT , Assessment & Plan Assessment/Plan (1) Myelopathy: (2) T12 compression fracture: QUALIFIERS: Encounter type: initial encounter Qualified Code(s): S22.080A - Wedge compression fracture of T11-T12 vertebra, initial encounter for closed fracture (3) Other intervertebral disc degeneration, lumbar region: (4) Gait instability: (5) Tremors of nervous system: (6) Unilateral primary osteoarthritis, left hip: PLAN: Plan I reviewed patient's hip x-rays as well as lumbar spine x-rays done yesterday. I also reviewed his lumbar spine through her CT abdomen done in October, thoracic spine through CT chest done in October, cervical spine through CT neck done in 2018. Lumbar x-rays done yesterday showed T12 compression fracture. CT abdomen from October did not show any fracture and T12 suggesting that this is less than 5-month old fracture. Disc degeneration noticed in the lower lumbar spine suggestive from vacuum phenomenon and L3-5 discs. Thoracic and cervical spine from previous CTs do not show any acute osseous abnormalities. No MRI available. Hip x-rays show severe left osteoarthritis. I explained to him the imaging findings in detail. His main symptom at this point seems to be worsening difficulty with balance and inability to walk without ambulatory aid. He was able to ambulate a little bit with physical therapy with the help of a walker this morning. He has had multiple falls now about at least twice a week. His worsening balance could be from any neurologic source, or possible myelopathy in thoracic or cervical levels. I do not feel an MRI of the left hip is needed at this time, as he has severe arthritis visible on the x-rays. Also, he does not seem to have an acute flareup of inflammation of the left hip as he is able to do an active straight leg raise, and he can keep his hip replacement date in April for now. I would like him to get MRI of the lumbar spine to evaluate the source of his axial low back pain and potentially to see the chronicity of the T12 fracture. He may need thoracic and cervical MRI to rule out myelopathy from cord compression, for but for now we will start with lumbar MRI. He may benefit from neurology consultation as an outpatient to assess for possible Parkinson's disease. I will review his lumbar MRI and see him while he is here as an inpatient. Patient was in agreement. Charges/Coding Visit Charges Inpatient E&M: 99086 Init Hosp L3
[2024-04-08 16:00] VITALS: BP 148/82; PULSE 70; RESP 18; TEMP 37; O2SAT 98
--- NOTE | 2024-04-08 17:34 | PCM.CONS.U ---
Assessment & Plan Assessment/Plan (1) Complicated UTI (urinary tract infection): PLAN: Treat the UTI according to sensitivities. I am to start him on Flomax 0.4 mg twice daily as tolerated and Proscar 5 mg daily I will write for the nurse to take out the catheter tomorrow for voiding trial. If successful we will leave the catheter out if unsuccessful then we will replace the catheter and he may follow-up in my office for another voiding trial. (2) Godinez catheter present: HPI Consult Data Date of Consult: 04/08/24 HPI Narrative Reason for Consultation: Urinary retention HPI Narrative: WILBERT MCWILLIAMS, is a 74 M who presents to the hospital with left osteoarthritis also has a T12 compression fracture. In the emergency room he was straight cathed for urine sample because he could not urinate and it was decided to leave the catheter in he did think he was urinating okay prior to this prior with a large residual. Currently at this point he does have a catheter in place and reviewed the prior CAT scan is because slightly enlarged prostate. I think will be started on medical therapy with Flomax 0.4 mg twice daily and Proscar 5 mg daily and then we can remove the catheter for a voiding trial. [facility] Medical History HTN (hypertension) Home Medications amlodipine 10 mg-valsartan 160 mg tablet (Exforge) 160 mg PO DAILY 07/01/14 [History Last Taken Unknown] cholecalciferol (vitamin D3) 25 mcg (1,000 unit) capsule (Vitamin D3) 1 cap PO QWEEK 07/01/14 [History Last Taken Unknown] esomeprazole magnesium 40 mg capsule,delayed release (Nexium) 40 mg PO DAILY 07/01/14 [History Last Taken 04/06/24] lorazepam 1 mg tablet 1 mg PO DAILY PRN PRN Anxiety 07/01/14 [History Last Taken 04/01/24] multivitamin,sr-jcli-zkuqeszp 27 mg-0.4 mg tablet (Therems-M) 1 tab PO DAILYCM ##30 07/03/14 [Rx Last Taken Unknown] oxycodone-acetaminophen 5 mg-325 mg tablet 1 tab PO Q6H PRN PRN Pain 3 days #12 TABLETS 11/11/23 [Rx Last Taken Unknown] sertraline 25 mg tablet (Zoloft) 25 mg PO DAILY #30 tabs 03/31/24 [Rx Last Taken 04/06/24] Allergy/AdvReac Type Severity Reaction Status Date / Time No Known Allergies Allergy Verified 04/07/24 12:54 Social History Smoking Status: Former smoker Physical Exam Const alert and oriented x3 General Appearance: cooperative HEENT normocephalic, head/scalp atraumatic, EAC's normal and TM's normal bilaterally Eyes PERRL and EOMs intact bilaterally Pupil: sluggish Neck no lymphadenopathy, supple and no JVD General: trachea midline Lymph Lymphatic: no lymphadenopathy noted, lymphedema and lymphadenopathy Resp normal respiratory effort, normal air movement and clear to auscultation bilaterally Cardio regular rate, regular rhythm and peripheral pulses 2+ throughout GI soft to palpation, non-tender and non-distended Extremity normal capillary refill and no clubbing, cyanosis or edema General Extremity: no tenderness to palpation of joints or extremities Skin no rashes or lesions noted General Skin Exam: turgor normal Lesions: no lesions Rashes: no rashes Neuro CN's II-XII intact bilaterally Speech: speech normal Motor Exam: strength 5/5 throughout; Negative for general weakness Psych thought process normal, cooperative and affect normal Appearance: appropriate Medical Records Data Attestation: I reviewed the patient's medical records Lab / Micro Data 04/08/24 05:24 04/08/24 05:24 Labs: Laboratory Results - last 24 hr 04/08/24 05:24: WBC 10.1, RBC 4.71, Hgb 15.5, Hct 43.7, MCV 92.8, MCH 32.9 H, MCHC 35.5, RDW Std Deviation 41.8, RDW Coeff of Jya 12.1, Plt Count 207, MPV 9.4, Sodium 134 L, Potassium 3.2 L, Chloride 104, Carbon Dioxide 21.0, Anion Gap 9, BUN 14, Creatinine 1.02, Estim Creat Clear Calc 66.60, Est GFR (MDRD) Af Amer 92, Est GFR (MDRD) Non-Af 76, BUN/Creatinine Ratio 13.7, Glucose 146 H, Calcium 8.6, Total Bilirubin 1.70 H, AST 25, ALT 60, Alkaline Phosphatase 71, Total Protein 6.9, Albumin 3.1 L, Globulin 3.8, Albumin/Globulin Ratio 0.8 L Micro: Microbiology 04/07/24 13:00 Urine, Clean Catch Urine Culture - Preliminary GPC Poss Enterococcus sp Imaging Radiology Impression Lumbar Spine MRI 04/08/24 13:51 IMPRESSION: 1. T12 inferior endplate compression fracture with Schmorl''s node at the superior endplate of T12. Marrow edema associated with the inferior endplate. Approximately 33% vertebral body height loss anteriorly. No retropulsion of the posterior cortex and no fracture involving the pedicle/posterior elements. 2. Multilevel degenerative changes with multilevel spinal canal and neural foraminal stenosis. Right L4 and left L5 nerve root impingement. Electronically Signed: Ezequiel Resendiz DO at 16:45 EDT , ADDENDUM: 04/08/24 1713 IMPRESSION: 1. T12 inferior endplate compression fracture with Schmorl''s node at the superior endplate of T12. Marrow edema associated with the inferior endplate. Approximately 33% vertebral body height loss anteriorly. No retropulsion of the posterior cortex and no fracture involving the pedicle/posterior elements. 2. Multilevel degenerative changes with multilevel spinal canal and neural foraminal stenosis. Right L4 and left L5 nerve root impingement. N.B. : Mary Robles RN, confirmed on 04/08/2024 17:06:51 (ET) that the healthcare facility has received the radiology report. Electronically Signed: Ezequiel Resendiz DO at 16:45 EDT ,
[2024-04-08] MEDS: Finasteride 5 MG Tablet PO (17:49)
[2024-04-08] MEDS: Tamsulosin HCl 0.4 MG Capsule PO (17:49)
[2024-04-08 20:10] VITALS: BP 138/87; PULSE 76; RESP 16; TEMP 36.8; O2SAT 97
[2024-04-09 06:00] VITALS: BP 133/83; PULSE 64; RESP 18; TEMP 36.6; O2SAT 95
--- NOTE | 2024-04-09 06:00 | US_ITS ---
INDICATION: RUQ US for elevated transaminases EXAMINATION: Ultrasound US Abdomen Limited (quadrant) TECHNIQUE: Pitts scale and color doppler imaging was performed of the right upper quadrant. COMPARISON: None. FINDINGS: LIVER: 16.2 cm in length. Increased echogenicity and limited parenchymal detail. Left lobe not clearly visualized due to overlying bowel gas. Main portal vein patent. GALLBLADDER Size: Contracted. Stones: None. Wall thickness: Not thickened. 3 mm. Pericholecystic fluid: None. Sonographic Cameron sign: Negative. EXTRAHEPATIC BILE DUCTS: Common bile duct 3 mm not dilated. PANCREAS: Not visualized, obscured by bowel gas. RIGHT KIDNEY: No hydronephrosis. Simple cyst at the lower pole, 3.2 x 2.9 x 3.1 cm. ASCITES: None. US/Abdomen Limited IMPRESSION: Hepatomegaly with fatty infiltration. Electronically Signed: Saira Rosas MD at 7:58 EDT ,
[2024-04-09] MEDS: Ampicillin 1,000 MG in 0.9% Normal Saline (50mL MB+) 50 ML 150 MG IV ×4 (06:18→23:42)
[2024-04-09 06:42] LABS: Absolute Lymphocyte Count 0.93 X10^3/uL (0.83-4.51); Absolute Neutrophil Count 4.5 X10^3/uL (2.0-7.7); Basophil# 0.04 X10^3/uL; Basophil% 0.7 % (0-1); Eosinophil# 0.06 X10^3/uL; Hematocrit 40.6 % (40-54); Hemoglobin 14.4 g/dL (13.0-16.5); Lymphocyte # 0.93 X10^3/ul (0.83-4.51); Lymphocyte % 15.2 % (19-41); Mean Corp Hgb Conc 35.5 g/dL (32-36); Mean Corpuscular Hgb 33.1 pg (27.0-32.0); Mean Corpuscular Volume 93.3 fL (80-94); Mean Platelet Vol. 9.7 fl (6.2-12.0); Monocyte# 0.54 X10^3/uL; Monocyte% 8.8 % (0-10); NRBC Flagged by Analyzer 0 % (0-5); Neutrophil # 4.49 X10^3/uL (2.7-7.7); Neutrophil % 73.2 % (47-70); Platelet Count 193 K/mm3 (150-450); RBC Distribution Width CV 11.9 % (11.6-14.6); RBC Distribution Width SD 41.4 fl (35.1-43.9); Red Blood Count 4.35 M/mm3 (4.6-6.2); White Blood Count 6.1 K/mm3 (4.4-11.0)
[2024-04-09 07:07] LABS: Anion Gap 6 (5-15); BUN 13 mg/dL (7-18); BUN/Creat Ratio 18.3 RATIO (10-20); Calcium,Total 8.7 mg/dL (8.5-10.1); Chloride 102 mmol/L (98-107); Creatinine, Serum 0.71 mg/dL (0.70-1.30); EST Glomerular Filtration Rate 115 mL/min (>60); Est Glom Filt Rate - Afr Amer 139 mL/min (>60); Estimated Creatinine Clearance 84.91 ml/min; Glucose 102 mg/dL (74-106); Potassium 3.1 mmol/L (3.5-5.1); Sodium Level 134 mmol/L (136-145)
[2024-04-09] MEDS: Finasteride 5 MG Tablet PO (08:24)
[2024-04-09] MEDS: Sertraline 50 MG Tablet 25 MG PO (08:24)
[2024-04-09] MEDS: Enoxaparin 40 MG/0.4 ML Syringe SC (08:24)
[2024-04-09] MEDS: Multivitamins,Ther W-Minerals Tablet 1 TABLET PO (08:24)
[2024-04-09] MEDS: Pantoprazole Sodium 40 MG Tablet PO (08:24)
[2024-04-09] MEDS: Tamsulosin HCl 0.4 MG Capsule PO ×2 (08:24→21:01)
[2024-04-09] MEDS: amLODIPine 10 MG Tablet PO (08:24)
[2024-04-09] MEDS: Potassium Chloride Oral Tablet 20 MEQ 60 MEQ PO (09:50)
[2024-04-09 10:00] VITALS: BP 146/84; PULSE 70; RESP 18; TEMP 36.7; O2SAT 98
--- NOTE | 2024-04-09 10:25 | CASEMGMT ---
MANGO TRACY Assessment: Face to Face with pt for initial transition planning/care coordination assessment. MANGO TRACY introduced self and role at [facility], pt voices understanding and consents to assessment. Pt lying in bed in no distress. Pt is A&O x4 and answers all questions appropriately at this time. Care providers, pharmacy, and demographics verified/updated. Admitting Dx: Intractable low back and left hip pain, dehydration PCP: Terence Specialists: Patience Villar Preferred Pharmacy: [facility] Insurance: Medicare - Primary, [facility] - supplement Prescription Benefit: yes LNOK: Amina - Living Arrangements: Pt lives with in a two story home with 6 steps to enter with handrails. Pt states he needs assistance and unable to provide the assistance he needs any longer. Pt stated he would like to go to [facility] in [place] upon [place] and has already called [facility] and insurance. Transportation: Pt states he no longer drives, drives him. DME: [facility] HHC/SNF:Denies Hx of. Pt states he would like to go to [facility] upon [place] from hospital. Pt states he has hip surgery scheduled in April, but does not think he will be able to have the surgery. Pt denies tobacco use, stated he drinks socially but has not had a drink for over two weeks, denies any use of street drugs. CM to follow. Advised pt to ask CM if any further question/concerns/needs arise, voices understanding. Pt Goal: SNF - [facility] in [place] Plan: SNF - updated SW. Madai COBIAN CM
--- NOTE | 2024-04-09 10:26 | CASEMGMT ---
Discharge Planning A list of SNF providers including quality and resource use data and consistent with the patient's preferred geographic region, medical needs, and insurance network was created in [facility] Guide.? This list was provided to the SW. Theresa Hernandez Discharge Planning Asst.
--- NOTE | 2024-04-09 11:58 | CASEMGMT ---
Social Work- SW met with pt and pt to advise that pt was accepted at [facility]. Pt was offered a list of SNF providers including quality and resource use data and consistent with the patient?s preferred geographic region, medical needs, and insurance network [facility], however, pt states that he knew where he wanted to go. Pt states that she has been unable to care for him at home and he needs the therapy before he can return home. VERÓNICA provided support and education. BASIA Sanford
--- NOTE | 2024-04-09 12:35 | PCM.PN.ORT ---
Subjective Subjective Saw patient in 312. Patient lying comfortably in bed. Patient that pain limits his ability to get up into sitting and standing position. Continues to complain of pain in the mid back area. Underwent MRI yesterday. Eager to hear the results. Objective Data Objective Data Vital Signs: Vital Signs Temp Pulse Resp BP Pulse Ox O2 Del Method 98.1 F 70 18 146/84 H 98 Room Air 04/09/24 10:00 04/09/24 10:00 04/09/24 10:00 04/09/24 10:00 04/09/24 10:00 04/09/24 10:00 Oxygen Delivery Method Room Air Weight: 190 lb 11.198 oz Body Mass Index (BMI) 27.3 Intake & Output: Intake and Output for Last 24 Hours 04/07/24 04/08/24 04/09/24 23:59 23:59 23:59 Intake Total 1430 / 1630 3096.67 / 3096.67 220 / 220 Output Total 200 / 200 1225 / 1225 700 / 700 Balance 1230 / 1430 1871.67 / 1871.67 -480 / -480 Lab / Micro Data 04/09/24 05:37 04/09/24 05:37 Labs: Laboratory Results - last 24 hr 04/09/24 05:37: WBC 6.1, RBC 4.35 L, Hgb 14.4, Hct 40.6, MCV 93.3, MCH 33.1 H, MCHC 35.5, RDW Std Deviation 41.4, RDW Coeff of Jay 11.9, Plt Count 193, MPV 9.7, Immature Gran % (Auto) 1.100 H, Neut % (Auto) 73.2 H, Lymph % (Auto) 15.2 L, [place] % (Auto) 8.8, Eos % (Auto) 1.0, Baso % (Auto) 0.7, Absolute Neuts (auto) 4.5, Absolute Lymphs (auto) 0.93, Nucleated RBC % 0, Sodium 134 L, Potassium 3.1 L, Chloride 102, Carbon Dioxide 26.0, Anion Gap 6, BUN 13, Creatinine 0.71, Estim Creat Clear Calc 84.91, Est GFR (MDRD) Af Amer 139, Est GFR (MDRD) Non-Af 115, BUN/Creatinine Ratio 18.3, Glucose 102, Calcium 8.7 Micro: Microbiology 04/07/24 13:00 Urine, Clean Catch Urine Culture - Final Enterococcus faecalis Radiography Diagnostic Testing: Radiology Impression Lumbar Spine MRI 04/08/24 13:51 IMPRESSION: 1. T12 inferior endplate compression fracture with Schmorl''s node at the superior endplate of T12. Marrow edema associated with the inferior endplate. Approximately 33% vertebral body height loss anteriorly. No retropulsion of the posterior cortex and no fracture involving the pedicle/posterior elements. 2. Multilevel degenerative changes with multilevel spinal canal and neural foraminal stenosis. Right L4 and left L5 nerve root impingement. Electronically Signed: Ezequiel Resendiz DO at 16:45 EDT , ADDENDUM: 04/08/24 1713 IMPRESSION: 1. T12 inferior endplate compression fracture with Schmorl''s node at the superior endplate of T12. Marrow edema associated with the inferior endplate. Approximately 33% vertebral body height loss anteriorly. No retropulsion of the posterior cortex and no fracture involving the pedicle/posterior elements. 2. Multilevel degenerative changes with multilevel spinal canal and neural foraminal stenosis. Right L4 and left L5 nerve root impingement. N.B. : Mary Robles RN, confirmed on 04/08/2024 17:06:51 (ET) that the healthcare facility has received the radiology report. Electronically Signed: Ezequiel Resendiz DO at 16:45 EDT , Abdomen Ultrasound 04/09/24 06:00 IMPRESSION: Hepatomegaly with fatty infiltration. Electronically Signed: Saira Rosas MD at 7:58 EDT , Physical Exam Narrative Examination of the back shows spinous process tenderness but no paraspinal tenderness, likely because medication is wearing off. Patient points towards the left flank region for pain. Neurologic evaluation of both upper and both lower extremity shows 5 x 5 power in all muscles normal sensations in all dermatomes. Justin's is negative bilaterally. Left triceps reflexes brisk. Bilateral knee reflexes are exaggerated. There is hypertonia in both lower extremities. Clonus could not be elicited. Romberg's and gait could not be tested. Examination of the hip shows no obvious tenderness. No pain with active straight leg raise test on either side. Assessment & Plan Assessment/Plan (1) T12 compression fracture: QUALIFIERS: Encounter type: initial encounter Qualified Code(s): S22.080A - Wedge compression fracture of T11-T12 vertebra, initial encounter for closed fracture (2) Osteoarthritis of left hip: QUALIFIERS: Osteoarthritis type: other secondary Qualified Code(s): M16.7 - Other unilateral secondary osteoarthritis of hip (3) Gait instability: (4) Other intervertebral disc degeneration, lumbar region: (5) Tremors of nervous system: (6) Unilateral primary osteoarthritis, left hip: PLAN: Plan I reviewed the MRI lumbar spine done last night. I again reviewed his previous x-rays. Lumbar x-rays done yesterday showed T12 compression fracture. MRI shows T2 and STIR hyperintensity in T12 suggestive of acute or subacute fracture. Hip x-rays show severe left osteoarthritis. Screening images of thoracic and cervical spine do not show any central stenosis or cord compression. Lower lumbar levels show disc degeneration with foraminal stenosis between L3-S1. I explained to him the imaging findings in detail. His balance deficits are unlikely related to any spinal causes. His urinary symptoms and constipation are also not related to his spine. He should consult her neurologist on an outpatient basis regarding his worsening balance to see if Parkinson's or any other pathology may be a source of it. For his continued pain in the mid back region, I explained to him that his MRI suggests acute or subacute T12 compression fracture. Options treatment were discussed which include rest analgesics, bracing versus surgical cement augmentation. Patient was explained the cement augmentation may be appropriate if his pain is limiting his activities of daily living and have not shown any improvement over the last few days. Patient has had significant pain for which he had to be admitted and is working towards transfer to a rehab facility rather than going back home. He has difficulty getting up from seated or lying down position. He has had the same amount of pain over the last week which does not seem to be improving with time. He would like to think over the option of cement augmentation and reach back to us to see if we can arrange this during this admission versus as an outpatient over the next week. Charges/Coding Visit Charges Inpatient E&M: 48484 Subs Hosp L2
--- NOTE | 2024-04-09 13:34 | NURSING ---
Brayan donnelly was d/c this am at 8:30 and he has been unable to void on his own and now was having pain. I bladder scanned him for 437. Called Dr. Watters and he said to put one back in and have him follow up in the office next week.
--- NOTE | 2024-04-09 13:49 | PN_ITS ---
Subjective Subjective Patient seen and examined. He is still complaining of back pain and said he had not been able to move much because of the back pain. He denies any fever or chills, palpitations, dizziness, nausea vomiting or any other symptoms. Review of systems otherwise negative. Objective Data Objective Data Vital Signs: Vital Signs Temp Pulse Resp BP Pulse Ox O2 Del Method 98.1 F 70 18 146/84 H 98 Room Air 04/09/24 10:00 04/09/24 10:00 04/09/24 10:00 04/09/24 10:00 04/09/24 10:04/09/24 10:00 Oxygen Delivery Method Room Air Weight: 190 lb 11.198 oz Body Mass Index (BMI) 27.3 Intake & Output: Intake and Output for Last 24 Hours 04/07/24 04/08/24 04/09/24 23:59 23:59 23:59 Intake Total 1430 / 1630 3096.67 / 3096.67 220 / 220 Output Total 200 / 200 1225 / 1225 700 / 700 Balance 1230 / 1430 1871.67 / 1871.67 -480 / -480 Lab / Micro Data 04/09/24 05:37 04/09/24 05:37 Labs: Laboratory Results - last 24 hr 04/09/24 05:37: WBC 6.1, RBC 4.35 L, Hgb 14.4, Hct 40.6, MCV 93.3, MCH 33.1 H, MCHC 35.5, RDW Std Deviation 41.4, RDW Coeff of Jay 11.9, Plt Count 193, MPV 9.7, Immature Gran % (Auto) 1.100 H, Neut % (Auto) 73.2 H, Lymph % (Auto) 15.2 L , [place] % (Auto) 8.8, Eos % (Auto) 1.0, Baso % (Auto) 0.7, Absolute Neuts (auto) 4.5, Absolute Lymphs (auto) 0.93, Nucleated RBC % 0, Sodium 134 L, Potassium 3.1 L, Chloride 102, Carbon Dioxide 26.0, Anion Gap 6, BUN 13, Creatinine 0.71, Estim Creat Clear Calc 84.91, Est GFR (MDRD) Af Amer 139, Est GFR (MDRD) Non-Af 115, BUN/Creatinine Ratio 18.3, Glucose 102, Calcium 8.7 Micro: Microbiology 04/07/24 13:00 Urine, Clean Catch Urine Culture - Final Enterococcus faecalis Radiography Diagnostic Testing: Radiology Impression Lumbar Spine MRI 04/08/24 13:51 IMPRESSION: 1. T12 inferior endplate compression fracture with Schmorl''s node at the superior endplate of T12. Marrow edema associated with the inferior endplate. Approximately 33% vertebral body height loss anteriorly. No retropulsion of the posterior cortex and no fracture involving the pedicle/posterior elements. 2. Multilevel degenerative changes with multilevel spinal canal and neural foraminal stenosis. Right L4 and left L5 nerve root impingement. Electronically Signed: Ezequiel Resendiz DO at 16:45 EDT , ADDENDUM: 04/08/24 1713 IMPRESSION: 1. T12 inferior endplate compression fracture with Schmorl''s node at the superior endplate of T12. Marrow edema associated with the inferior endplate. Approximately 33% vertebral body height loss anteriorly. No retropulsion of the posterior cortex and no fracture involving the pedicle/posterior elements. 2. Multilevel degenerative changes with multilevel spinal canal and neural foraminal stenosis. Right L4 and left L5 nerve root impingement. N.B. : Mary Robles RN, confirmed on 04/08/2024 17:06:51 (ET) that the healthcare facility has received the radiology report. Electronically Signed: Ezequiel Resendiz DO at 16:45 EDT , Abdomen Ultrasound 04/09/24 06:00 IMPRESSION: Hepatomegaly with fatty infiltration. Electronically Signed: Saira Rosas MD at 7:58 EDT , Physical Exam Const alert, oriented x3 and no apparent distress General Appearance: cooperative and well developed HEENT normocephalic, head/scalp atraumatic, moist oral mucous membranes and oropharynx normal Eyes PERRL and EOMs intact bilaterally Neck no lymphadenopathy and supple Lymph Lymphatic: no lymphadenopathy noted and no lymphedema noted Resp normal respiratory effort, normal air movement and clear to auscultation bilaterally Cardio regular rate, regular rhythm, S1 normal heart sound, S2 normal heart sound and no murmurs GI normal to inspection, nondistended, normoactive bowel sounds, soft to palpation and non-tender Extremity normal capillary refill, no clubbing, cyanosis or edema and no calf tenderness General Extremity: no tenderness to palpation of joints or extremities Skin General Skin Exam: no breakdown Neuro CN's II-XII intact bilaterally, no focal motor deficits, no sensory deficits noted and deep tendon reflexes 2+ bilaterally Motor Exam: strength 5/5 throughout and general weakness Psych thought process normal and cooperative Appearance: appropriate Assessment & Plan Assessment/Plan (1) Unilateral primary osteoarthritis, left hip: (2) Low back pain: PLAN: Plan #Debility due to intractable low back pain and osteoarthritis of the left hip * pain is better controlled today. * PT/OT on board. * Fall precautions * Orthopedic surgery on board. On p.o. oxycodone and IV Dilaudid for pain. Tylenol on hold due to mild elevated liver enzymes. * #Elevated liver enzymes in the setting of alcoholic fatty liver disease * Liver enzymes were mildly elevated. INR was 1.1. Thought to be due to fatty liver disease. Right upper quadrant ultrasound ordered. * Liver enzymes trending downwards. AST and ALT have normalized. Will continue to monitor. #Hypokalemia: Potassium is 3.1. Replace and trend. #UTI * Was recently diagnosed with urinary retention and had Godinez catheter inserted on 03/31/2024. He had a urine catheter inserted in the ED with plans to follow- up with urology on outpatient basis. * Urine culture growing Enterococcus and now on IV ampicillin. * ID on board. * # History of alcohol use disorder: Has recently not been drinking much so was not started on acute alcohol withdrawal protocol and admission. Will monitor for signs of withdrawal. #Hypokalemia: Resolved #Depression and anxiety: On sertraline and Ativan as needed #Hypertension: On amlodipine. Valsartan held to evaluate for. IV hydralazine as needed DVT prophylaxis: Lovenox Disposition: Anticipate DC tomorrow to SNF. Charges/Coding Visit Charges Inpatient E&M: 33409 Subs Hosp L2
[2024-04-09 14:57] VITALS: BP 144/87; PULSE 91; RESP 18; TEMP 36.6; O2SAT 95
[2024-04-09 20:58] VITALS: BP 137/88; PULSE 75; RESP 18; TEMP 36.9; O2SAT 94
[2024-04-09] MEDS: Polyethylene Glycol 3350 17 GM PACKET PO (21:01)
[2024-04-09] MEDS: MELATONIN 3 MG TABLET PO (21:07)
[2024-04-09 23:40] VITALS: BP 143/87; PULSE 65; RESP 18; TEMP 36.5; O2SAT 96
[2024-04-09] MEDS: 0.9% Saline Lock 10 ML Syringe IV (23:41)
[2024-04-09] MEDS: LORazepam 1 MG Tablet 0.5 MG PO (23:49)
[2024-04-10] VITALS (15 sets, daily range): BP systolic 115–154; BP diastolic 70–91; PULSE 49–70; RESP 16–18; TEMP 36.3–36.7; O2SAT 92–97; BMI 27.3
[2024-04-10 06:26] LABS: Absolute Lymphocyte Count 1.04 X10^3/uL (0.83-4.51); Absolute Neutrophil Count 4.7 X10^3/uL (2.0-7.7); Basophil# 0.06 X10^3/uL; Basophil% 0.9 % (0-1); Eosinophils% 1.5 % (0-5); Hematocrit 39.7 % (40-54); Lymphocyte # 1.04 X10^3/ul (0.83-4.51); Mean Corp Hgb Conc 35.3 g/dL (32-36); Mean Corpuscular Hgb 32.6 pg (27.0-32.0); Mean Corpuscular Volume 92.5 fL (80-94); Mean Platelet Vol. 9.8 fl (6.2-12.0); Monocyte# 0.51 X10^3/uL; Monocyte% 7.8 % (0-10); NRBC Flagged by Analyzer 0 % (0-5); Neutrophil # 4.69 X10^3/uL (2.7-7.7); Neutrophil % 72.1 % (47-70); Platelet Count 224 K/mm3 (150-450); RBC Distribution Width SD 40.8 fl (35.1-43.9); Red Blood Count 4.29 M/mm3 (4.6-6.2); White Blood Count 6.5 K/mm3 (4.4-11.0)
[2024-04-10] MEDS: Ampicillin 1,000 MG in 0.9% Normal Saline (50mL MB+) 50 ML 150 MG IV ×4 (06:26→23:45)
[2024-04-10 06:48] LABS: Anion Gap 7 (5-15); BUN 13 mg/dL (7-18); BUN/Creat Ratio 19.1 RATIO (10-20); Calcium,Total 8.7 mg/dL (8.5-10.1); Chloride 103 mmol/L (98-107); Creatinine, Serum 0.68 mg/dL (0.70-1.30); EST Glomerular Filtration Rate 121 mL/min (>60); Est Glom Filt Rate - Afr Amer 146 mL/min (>60); Estimated Creatinine Clearance 84.91 ml/min; Glucose 117 mg/dL (74-106); Potassium 3.5 mmol/L (3.5-5.1); Sodium Level 137 mmol/L (136-145)
[2024-04-10 06:58] LABS: Partial Thromboplast Time 29.5 Seconds (24.1-36.2)
--- NOTE | 2024-04-10 11:00 | RAD_ITS ---
PROCEDURE: Vertebral plasty of the T12 vertebrae. DATE OF EXAMINATION: April 10, 2024. INDICATION: Male, 74 years old. Compression of the T12 vertebrae. FLUOROSCOPY TIME (if supplied): (73 seconds) minutes/seconds. 34.78 mGy. 14 images were submitted. RAD/Spine 1 View Any Level IMPRESSION: Intraoperative fluoroscopic imaging provided for vertebroplasty of the L1 vertebrae. Electronically Signed: Maxi Arana MD at 14:30 EDT ,
--- NOTE | 2024-04-10 11:02 | CASEMGMT ---
Social Work- [facility] advised that pt will not be d/c today d/t a procedure. BASIA Sanford
--- NOTE | 2024-04-10 11:10 | PN_ITS ---
Subjective Subjective Patient seen and examined today. He had no active complaints. He had an uneventful night. He is due for above procedure by spine surgery tomorrow. Review of systems otherwise negative. Objective Data Objective Data Vital Signs: Vital Signs Temp Pulse Resp BP Pulse Ox O2 Del Method 98 F 59 L 18 127/89 H 95 Room Air 04/10/24 09:41 04/10/24 09:41 04/10/24 09:41 04/10/24 09:41 04/10/24 09:41 04/10/24 09:41 Oxygen Delivery Method Room Air Weight: 190 lb 11.198 oz Body Mass Index (BMI) 27.3 Intake & Output: Intake and Output for Last 24 Hours 04/08/24 04/09/24 04/10/24 23:59 23:59 23:59 Intake Total 3096.67 / 3096.67 570 / 570 100 / 100 Output Total 1225 / 1225 2125 / 2125 300 / 300 Balance 1871.67 / 1871.67 -1555 / -1555 -200 / -200 Lab / Micro Data 04/10/24 05:35 04/10/24 05:35 Labs: Laboratory Results - last 24 hr 04/10/24 05:35: WBC 6.5, RBC 4.29 L, Hgb 14.0, Hct 39.7 L, MCV 92.5, MCH 32.6 H, MCHC 35.3, RDW Std Deviation 40.8, RDW Coeff of Jay 12.0, Plt Count 224, MPV 9.8, Immature Gran % (Auto) 1.700 H, Neut % (Auto) 72.1 H, Lymph % (Auto) 16.0 L , [place] % (Auto) 7.8, Eos % (Auto) 1.5, Baso % (Auto) 0.9, Absolute Neuts (auto) 4.7, Absolute Lymphs (auto) 1.04, Nucleated RBC % 0, APTT 29.5, Sodium 137, Potassium 3.5, Chloride 103, Carbon Dioxide 27.0, Anion Gap 7, BUN 13, C reatinine 0.68 L, Estim Creat Clear Calc 84.91, Est GFR (MDRD) Af Amer 146, Est GFR (MDRD) Non-Af 121, BUN/Creatinine Ratio 19.1, Glucose 117 H, Calcium 8.7 Micro: Microbiology 04/07/24 13:00 Urine, Clean Catch Urine Culture - Final Enterococcus faecalis Physical Exam Const alert, oriented x3 and no apparent distress General Appearance: cooperative, comfortable and well developed HEENT normocephalic, head/scalp atraumatic, hearing grossly normal bilaterally, nasal mucous membranes and turbinates normal, moist oral mucous membranes and oropharynx normal Eyes PERRL, EOMs intact bilaterally and conjunctivae normal Neck full ROM, no lymphadenopathy and supple Lymph Lymphatic: no lymphadenopathy noted and no lymphedema noted Chest inspection of chest normal Resp normal respiratory effort, normal air movement, no use of accessory muscles and clear to auscultation bilaterally Cardio regular rate, regular rhythm, S1 normal heart sound, S2 normal heart sound, no murmurs and peripheral pulses 2+ throughout GI normal to inspection, nondistended, normoactive bowel sounds, soft to palpation, non-tender and non-distended Extremity normal to inspection, normal capillary refill, no clubbing, cyanosis or edema, no calf tenderness and no pedal edema General Extremity: no tenderness to palpation of joints or extremities Skin no rashes or lesions noted General Skin Exam: no breakdown Neuro CN's II-XII intact bilaterally, no focal motor deficits, no sensory deficits noted and deep tendon reflexes 2+ bilaterally Speech: speech normal Motor Exam: strength 5/5 throughout and general weakness Psych mental status grossly normal, thought process normal and cooperative Appearance: appropriate Assessment & Plan Assessment/Plan (1) Unilateral primary osteoarthritis, left hip: (2) Low back pain: PLAN: Plan #Debility due to intractable low back pain and osteoarthritis of the left hip * pain is better controlled today. * PT/OT on board. * Fall precautions * Orthopedic surgery on board. On p.o. oxycodone and IV Dilaudid for pain. Tylenol on hold due to mild elevated liver enzymes. * MRI done yesterday showed T12 compression fracture and T2 and STIR hyperintensity in T12 suggestive of acute or subacute fracture with hip x-ray showing left severe osteoarthritis. Imaging of thoracic and cervical spine did not show any central stenosis or cord compression. Patient to have surgical cement augmentation tomorrow. * #Elevated liver enzymes in the setting of alcoholic fatty liver disease * Liver enzymes were mildly elevated. INR was 1.1. Thought to be due to fatty liver disease. Right upper quadrant ultrasound showed hepatomegaly with fatty infiltration. * Liver enzymes trending downwards. AST and ALT have normalized. Will continue to monitor. #Hypokalemia: Potassium is 3.1. Replace and trend. #UTI * Was recently diagnosed with urinary retention and had Godinez catheter inserted on 03/31/2024. He had a urine catheter inserted in the ED with plans to follow- up with urology on outpatient basis. * Urine culture growing Enterococcus and now on IV ampicillin. * ID on board. * # History of alcohol use disorder: Has recently not been drinking much so was not started on acute alcohol withdrawal protocol and admission. Will monitor for signs of withdrawal. #Hypokalemia: Resolved #Depression and anxiety: On sertraline and Ativan as needed #Hypertension: On amlodipine. Valsartan held . IV hydralazine as needed DVT prophylaxis: Lovenox Disposition: DC to rehab after cement augmentation by spine surgery tomorrow. Charges/Coding Visit Charges Inpatient E&M: 67238 Subs Hosp L2
[2024-04-10] MEDS: Lactated Ringers 1,000 ML 15 ML IV (11:23)
--- NOTE | 2024-04-10 11:32 | NURSING ---
Called nurse at and informed her that I was sending pt Ampicillin that is do at 12:00 so they can hang it for me.
--- NOTE | 2024-04-10 12:00 | BONBX_PTH ---
PATIENT: WILBERT MCWILLIAMS LOC: [facility] U#:[id number] AGE/SX: 74/M ROOM: [facility] [place] RE04/07/[address]: Dr. Celeste Lion MD : 1950 BED: 1 DIS: 04/12/2024 SPEC #: [id number] RECD: 04/10/24 13:50 STATUS: DEVIN SEJAL #: [id number] CANDELARIA: 04/10/24 12:[address]: Too Rizzo DEPT: SURGICAL PATHOLOGY RECD BY: Shahla Welch ENTERED: 04/11/24 11:44 SP TYPE: Bone OTHR DR: DO Dr. Nixon Copeland MD Dr. Nana Yaa Koram, MD Dr. Nicholas F Kotsonis, MD Carolyn Graham, CHIP CRUSHER OPERATOR-[place]ander Tissues: Vertebra, NOS Procedures: Decalcification bone/plaque Surgery Specimen Level V HEADER OPERATION: T12 Kyphoplasty PRE-OP DIAGNOSIS: T12 fracture TISSUE SUBMITTED: T12 vertebral biopsy MICROSCOPIC DIAGNOSIS T12 vertebral biopsy: Fragments of bone with callus formation and reactive changes. Negative for malignancy. See comment. KAM/ 04/12/2024 COMMENT Clinical correlation and appropriate follow up are necessary. MICROSCOPIC DESCRIPTION Slides are reviewed. GROSS DESCRIPTION Received in fixative is one container labeled with the patient's name and designated T12 vertebral biopsy. The specimen consists of multiple fragments of bone mixed with blood clot measuring in aggregate 1.0 x 1.0 x 0.1cm. The entire specimen is submitted in one cassette after decalcification. KAM/ 04/11/24 TC:5 CPT:39206,59472
--- NOTE | 2024-04-10 12:10 | PN.ORTHO_ITS ---
Subjective Subjective After my discussion with the patient yesterday, patient reached out saying that he would like to proceed with cement augmentation for his T12 fracture. I saw him In preop today. I went over the procedure in detail. The procedure will be T12 cement augmentation with spine titi fracture reduction. All risk benefits and alternatives were discussed in detail with the risks include but are not limited to infection, bleeding, hematoma formation, need for further surgery, cement extravasation, cement embolism, DVT, pulmonary embolism, cardiopulmonary event, pneumonia, atelectasis, persistent pain, possible future fractures, spinal cord injury, nerve root injury. Patient understands and agrees to proceed with this procedure. Consent was signed. Objective Data Objective Data Vital Signs: Vital Signs Temp Pulse Resp BP Pulse Ox O2 Del Method 98 F 59 L 18 127/89 H 95 Room Air 04/10/24 09:41 04/10/24 09:41 04/10/24 09:41 04/10/24 09:41 04/10/24 09:41 04/10/24 09:41 Oxygen Delivery Method Room Air Weight: 190 lb 11.198 oz Body Mass Index (BMI) 27.3 Intake & Output: Intake and Output for Last 24 Hours 04/08/24 04/09/24 04/10/24 23:59 23:59 23:59 Intake Total 3096.67 / 3096.67 570 / 570 100 / 100 Output Total 1225 / 1225 2125 / 2125 300 / 300 Balance 1871.67 / 1871.67 -1555 / -1555 -200 / -200 Lab / Micro Data 04/10/24 05:35 04/10/24 05:35 Labs: Laboratory Results - last 24 hr 04/10/24 05:35: WBC 6.5, RBC 4.29 L, Hgb 14.0, Hct 39.7 L, MCV 92.5, MCH 32.6 H, MCHC 35.3, RDW Std Deviation 40.8, RDW Coeff of Jay 12.0, Plt Count 224, MPV 9.8, Immature Gran % (Auto) 1.700 H, Neut % (Auto) 72.1 H, Lymph % (Auto) 16.0 L , [place] % (Auto) 7.8, Eos % (Auto) 1.5, Baso % (Auto) 0.9, Absolute Neuts (auto) 4.7, Absolute Lymphs (auto) 1.04, Nucleated RBC % 0, APTT 29.5, Sodium 137, Potassium 3.5, Chloride 103, Carbon Dioxide 27.0, Anion Gap 7, BUN 13, C reatinine 0.68 L, Estim Creat Clear Calc 84.91, Est GFR (MDRD) Af Amer 146, Est GFR (MDRD) Non-Af 121, BUN/Creatinine Ratio 19.1, Glucose 117 H, Calcium 8.7 Micro: Microbiology 04/07/24 13:00 Urine, Clean Catch Urine Culture - Final Enterococcus faecalis
[2024-04-10] MEDS: Lidocaine 1% (30 ml sdv) 30 ML Vial (13:22)
--- NOTE | 2024-04-10 13:32 | OP.PCM_ITS ---
Report of Operation Date of Procedure: 04/10/24 Description of Surgical Findings:: ATTENDING SURGEON: Too Rizzo MD [employer] ACT OFFICER: none PREOPERATIVE DIAGNOSIS: T12 compression fracture POSTOPERATIVE DIAGNOSIS: T12 compression fracture PROCEDURE PERFORMED: T12 percutaneous vertebral cement augmentation using [place] SpineJack CPT 79961 Mechanically expandable paired synthetic substitute, ICD-10 PCS procedure code [id number] INDICATIONS FOR THE PROCEDURE: The patient is a 74-year-old gentleman, who presents with back pain after an fall at home last Tuesday. He was unable to ambulate and was brought to the hospital and was admitted for pain control. Despite rest and analgesics, patient continued to have severe pain limiting ambulation. Imaging showed T12 acute/subacute compression fracture. After failing conservative management, the patient requested cement augmentation with SpineJack. Risk benefits were discussed in detail. The risks include but are not limited to infection, bleeding, hematoma formation, nerve or spinal cord injury, DVT, pulmonary embolism, cement [place], hypertension, cardiac arrest, persistent pain, need for further procedures, cement extravasation, future insufficiency fractures. After a discussion of the risks and benefits of the procedure, consent was signed for the procedure. DETAILS OF PROCEDURE: Patient was met in the preoperative holding area and the correct site was marked. The patient was brought back to the operative suite. Timeout was performed. Patient was carefully positioned flat Lars table with pillows. General anesthesia was performed. Preop antibiotic was given. Back was prepped and draped in usual fashion. Timeout was again performed. C-arm AP and lateral view was then taken. 2 C-arms were positioned in a way that T12 was centralized and superior endplate was parallel to the beams. Spinous process was centered between the pedicles. Point of entry was marked with skin marker. local anesthetic was injected subcutaneously. Small stab incision was placed to allow Jamshidi needle. The Jamshidi needle was then taken down up to the lateral edge of the pedicle seen on AP view and confirmed the lateral view. Jamshidi needle was then malleted into the bone up to the medial wall of the pedicle seen on AP view and confirmed on lateral view to be inside the body. This was then advanced to the posterior third of the vertebral bodies. This was done on both sides. Stylette was removed. Guidewire was placed. Drill was utilized to create a channel for the SpineJack. This drill was advanced up to the anterior third of the vertebral body. This was confirmed on AP and lateral views to be in a good position going towards the spinous process. SpineJack implant was then expanded under AP and lateral C-arm control to reduce the fracture and increased vertebral body height. Once maximal expansion was completed, Cement was mixed. Once the cement consistency was putty like, this was slowly inserted into the vertebral body through both SpineJack cannulas. AP lateral views were confirmed to make sure no cement extravasation occurs. Once adequate cement was placed, time was given to allow cement setting. SpineJack cannulas were then removed. Single 2-0 Vicryl stitches were taken in the subcutaneous space. Steri-Strips were applied along with 4 x 4 and Tegaderm. AP lateral views showed good cement fill. Patient was then taken to PACU in stable condition. I was present for the entire case. Surgeon: Too Rizzo Procedures Musculoskeletal [id number]: Other Procedure See Report
[2024-04-10] MEDS: oxyCODONE 5 MG Tablet PO (20:24)
[2024-04-10] MEDS: MELATONIN 3 MG TABLET PO (20:24)
[2024-04-10] MEDS: Tamsulosin HCl 0.4 MG Capsule PO (20:24)
[2024-04-10] MEDS: Ondansetron 4 MG/2 ML Vial IV (20:32)
[2024-04-10] MEDS: HYDROmorphone 0.5 MG/0.5 ML SYRINGE IV (23:45)
[2024-04-11] VITALS (7 sets, daily range): BP systolic 136–144; BP diastolic 76–89; PULSE 60–74; RESP 15–18; TEMP 36.6–36.7; O2SAT 94–96
[2024-04-11] MEDS: Ampicillin 1,000 MG in 0.9% Normal Saline (50mL MB+) 50 ML 150 MG IV ×3 (06:41→17:22)
[2024-04-11 07:41] LABS: Absolute Lymphocyte Count 1.01 X10^3/uL (0.83-4.51); Absolute Neutrophil Count 4.7 X10^3/uL (2.0-7.7); Basophil# 0.07 X10^3/uL; Basophil% 1.1 % (0-1); Eosinophil# 0.08 X10^3/uL; Eosinophils% 1.2 % (0-5); Hematocrit 43.1 % (40-54); Hemoglobin 15.2 g/dL (13.0-16.5); Lymphocyte # 1.01 X10^3/ul (0.83-4.51); Lymphocyte % 15.7 % (19-41); Mean Corp Hgb Conc 35.3 g/dL (32-36); Mean Corpuscular Volume 93.7 fL (80-94); Mean Platelet Vol. 9.6 fl (6.2-12.0); Monocyte# 0.47 X10^3/uL; Monocyte% 7.3 % (0-10); NRBC Flagged by Analyzer 0 % (0-5); Neutrophil % 73.1 % (47-70); Platelet Count 217 K/mm3 (150-450); RBC Distribution Width CV 12.1 % (11.6-14.6); RBC Distribution Width SD 41.6 fl (35.1-43.9); White Blood Count 6.4 K/mm3 (4.4-11.0)
[2024-04-11 07:49] LABS: Partial Thromboplast Time 28.7 Seconds (24.1-36.2)
[2024-04-11] MEDS: Tamsulosin HCl 0.4 MG Capsule PO ×2 (07:49→21:35)
[2024-04-11] MEDS: Enoxaparin 40 MG/0.4 ML Syringe SC (07:49)
[2024-04-11] MEDS: Multivitamins,Ther W-Minerals Tablet 1 TABLET PO (07:49)
[2024-04-11] MEDS: Sertraline 50 MG Tablet 25 MG PO (07:50)
[2024-04-11] MEDS: Polyethylene Glycol 3350 17 GM PACKET PO (07:50)
[2024-04-11] MEDS: Finasteride 5 MG Tablet PO (07:50)
[2024-04-11] MEDS: Pantoprazole Sodium 40 MG Tablet PO (07:50)
[2024-04-11] MEDS: amLODIPine 10 MG Tablet PO (07:53)
[2024-04-11 08:30] LABS: Anion Gap 6 (5-15); BUN 13 mg/dL (7-18); BUN/Creat Ratio 16.3 RATIO (10-20); Chloride 103 mmol/L (98-107); EST Glomerular Filtration Rate 101 mL/min (>60); Est Glom Filt Rate - Afr Amer 123 mL/min (>60); Estimated Creatinine Clearance 84.91 ml/min; Glucose 125 mg/dL (74-106); Potassium 3.3 mmol/L (3.5-5.1); Sodium Level 135 mmol/L (136-145)
--- NOTE | 2024-04-11 11:04 | PCM.PN.ORT ---
Subjective Subjective Postop day 1 status post T12 spine titi cement augmentation. Patient doing well. Pain well-controlled. Worked with physical therapy and walker moderate distances. Objective Data Objective Data Vital Signs: Vital Signs Temp Pulse Resp BP Pulse Ox O2 Del Method 97.8 F 60 18 142/89 H 94 Room Air 04/11/24 07:40 04/11/24 07:40 04/11/24 07:40 04/11/24 07:40 04/11/24 07:40 04/11/24 07:40 Oxygen Delivery Method Room Air Weight: 190 lb 11.198 oz Body Mass Index (BMI) 27.3 Intake & Output: Intake and Output for Last 24 Hours 04/09/24 04/10/24 04/11/24 23:59 23:59 23:59 Intake Total 570 / 570 200 / 850 1350 / 1350 Output Total 2125 / 2125 1450 / 2400 1790 / 1790 Balance -1555 / -1555 -1250 / -1550 -440 / -440 Lab / Micro Data 04/11/24 06:54 04/11/24 06:54 Labs: Laboratory Results - last 24 hr 04/11/24 06:54: WBC 6.4, RBC 4.60, Hgb 15.2, Hct 43.1, MCV 93.7, MCH 33.0 H, MCHC 35.3, RDW Std Deviation 41.6, RDW Coeff of Jay 12.1, Plt Count 217, MPV 9.6, Immature Gran % (Auto) 1.600 H, Neut % (Auto) 73.1 H, Lymph % (Auto) 15.7 L, [place] % (Auto) 7.3, Eos % (Auto) 1.2, Baso % (Auto) 1.1 H, Absolute Neuts (auto) 4.7, Absolute Lymphs (auto) 1.01, Nucleated RBC % 0, APTT 28.7, Sodium 135 L, Potassium 3.3 L, Chloride 103, Carbon Dioxide 26.0, Anion Gap 6, BUN 13, Creatinine 0.80, Estim Creat Clear Calc 84.91, Est GFR (MDRD) Af Amer 123, Est GFR (MDRD) Non-Af 101, BUN/Creatinine Ratio 16.3, Glucose 125 H, Calcium 9.0 Micro: Microbiology 04/07/24 13:00 Urine, Clean Catch Urine Culture - Final Enterococcus faecalis Radiography Diagnostic Testing: Radiology Impression Spine X-Ray 04/10/24 11:00 IMPRESSION: Intraoperative fluoroscopic imaging provided for vertebroplasty of the L1 vertebrae. Electronically Signed: Maxi Arana MD at 14:30 EDT , Physical Exam Narrative Dressing?CDI. Neurologic evaluation of lower extremity shows 5 x 5 power normal shows normal sensations in all dermatomes. Assessment & Plan Assessment/Plan (1) T12 compression fracture: QUALIFIERS: Encounter type: sequela Qualified Code(s): S22.080S - Wedge compression fracture of T11-T12 vertebra, sequela PLAN: Plan Patient is postop day 1 status post T12 cement augmentation. He has done well. Continue PT OT mobilization. Balance difficulties will need to be referred to neurology on an outpatient basis. Okay to remove dressings tomorrow and replace with Band-Aid daily thereafter. Will follow-up with me in orthopedic clinic in 2 weeks. No bending lifting twisting until then. Orthopedics will sign off for now. Please reach out for any questions or concerns.
--- NOTE | 2024-04-11 12:57 | PN_ITS ---
Subjective Subjective Patient seen and examined. He has no complaints. He had T12 percutaneous vertebral cement augmentation done yesterday. Patient however states he does not feel optimized enough to go today and would want to go tomorrow. Review of systems otherwise negative. He has remained hemodynamically stable. Objective Data Objective Data Vital Signs: Vital Signs Temp Pulse Resp BP Pulse Ox O2 Del Method 98.0 F 60 18 136/88 H 94 Room Air 04/11/24 11:33 04/11/24 11:33 04/11/24 11:33 04/11/24 11:33 04/11/24 11:04/11/24 11:33 Oxygen Delivery Method Room Air Weight: 190 lb 11.198 oz Body Mass Index (BMI) 27.3 Intake & Output: Intake and Output for Last 24 Hours 04/09/24 04/10/24 04/11/24 23:59 23:59 23:59 Intake Total 570 / 570 200 / 850 1700 / 1700 Output Total 2125 / 2125 1450 / 2400 2090 / 2090 Balance -1555 / -1555 -1250 / -1550 -390 / -390 Lab / Micro Data 04/11/24 06:54 04/11/24 06:54 Labs: Laboratory Results - last 24 hr 04/11/24 06:54: WBC 6.4, RBC 4.60, Hgb 15.2, Hct 43.1, MCV 93.7, MCH 33.0 H, MCHC 35.3, RDW Std Deviation 41.6, RDW Coeff of Jay 12.1, Plt Count 217, MPV 9.6, Immature Gran % (Auto) 1.600 H, Neut % (Auto) 73.1 H, Lymph % (Auto) 15.7 L , [place] % (Auto) 7.3, Eos % (Auto) 1.2, Baso % (Auto) 1.1 H, Absolute Neuts (auto) 4.7, Absolute Lymphs (auto) 1.01, Nucleated RBC % 0, APTT 28.7, Sodium 135 L, Potassium 3.3 L, Chloride 103, Carbon Dioxide 26.0, Anion Gap 6, BUN 13, Creatinine 0.80, Estim Creat Clear Calc 84.91, Est GFR (MDRD) Af Amer 123, Est GFR (MDRD) Non-Af 101, BUN/Creatinine Ratio 16.3, Glucose 125 H, Calcium 9.0 Micro: Microbiology 04/07/24 13:00 Urine, Clean Catch Urine Culture - Final Enterococcus faecalis Radiography Diagnostic Testing: Radiology Impression Spine X-Ray 04/10/24 11:00 IMPRESSION: Intraoperative fluoroscopic imaging provided for vertebroplasty of the L1 vertebrae. Electronically Signed: Maxi Arana MD at 14:30 EDT , Physical Exam Const alert, oriented x3 and no apparent distress General Appearance: cooperative, comfortable and well developed HEENT normocephalic, head/scalp atraumatic, hearing grossly normal bilaterally, nasal mucous membranes and turbinates normal, moist oral mucous membranes and oropharynx normal Eyes PERRL, EOMs intact bilaterally and conjunctivae normal Neck full ROM, no lymphadenopathy and supple Lymph Lymphatic: no lymphadenopathy noted and no lymphedema noted Chest inspection of chest normal Resp normal respiratory effort, normal air movement, no use of accessory muscles and clear to auscultation bilaterally Cardio regular rate, regular rhythm, S1 normal heart sound, S2 normal heart sound, no murmurs and peripheral pulses 2+ throughout GI normal to inspection, nondistended, normoactive bowel sounds, soft to palpation, non-tender and non-distended Back/Spine Back/Spine Narrative: No significant tenderness to palpation in L-spine or left hip. Did not attempt motion. Extremity normal to inspection, normal capillary refill, no clubbing, cyanosis or edema, no calf tenderness and no pedal edema General Extremity: no tenderness to palpation of joints or extremities Skin no rashes or lesions noted General Skin Exam: no breakdown Neuro CN's II-XII intact bilaterally, no focal motor deficits, no sensory deficits noted and deep tendon reflexes 2+ bilaterally Speech: speech normal Motor Exam: strength 5/5 throughout and general weakness Psych mental status grossly normal, thought process normal and cooperative Appearance: appropriate Assessment & Plan Assessment/Plan (1) Unilateral primary osteoarthritis, left hip: (2) Low back pain: PLAN: Plan #Debility due to intractable low back pain and osteoarthritis of the left hip as well T12 compression fracture * s/p T12 percutaneous vertebral cement augmentation. Today is POD 1. * pain is better controlled today. * PT/OT on board. * Fall precautions * Orthopedic surgery on board. On p.o. oxycodone and IV Dilaudid for pain. Tylenol on hold due to mild elevated liver enzymes. * MRI done showed T12 compression fracture and T2 and STIR hyperintensity in T12 suggestive of acute or subacute fracture with hip x-ray showing left severe osteoarthritis. Imaging of thoracic and cervical spine did not show any central stenosis or cord compression. * #Elevated liver enzymes in the setting of alcoholic fatty liver disease * Liver enzymes were mildly elevated. INR was 1.1. Thought to be due to fatty liver disease. Right upper quadrant ultrasound showed hepatomegaly with fatty infiltration. * Liver enzymes trending downwards. AST and ALT have normalized. Will continue to monitor. #Hypokalemia: Potassium is 3.3. Replace and trend. #UTI * Was recently diagnosed with urinary retention and had Godinez catheter inserted on 03/31/2024. He had a urine catheter inserted in the ED with plans to follow- up with urology on outpatient basis. * Urine culture growing Enterococcus and now on IV ampicillin. * * # History of alcohol use disorder: Has recently not been drinking much so was not started on acute alcohol withdrawal protocol and admission. Will monitor for signs of withdrawal. #Hypokalemia: Resolved #Depression and anxiety: On sertraline and Ativan as needed #Hypertension: On amlodipine. Valsartan held . IV hydralazine as needed DVT prophylaxis: Lovenox Disposition: DC to rehab after cement augmentation by spine surgery tomorrow.
[2024-04-11 14:55] LABS: PSA,Total- Diagnostic 0.49 ng/mL (0.0-4.0)
[2024-04-11] MEDS: LORazepam 1 MG Tablet 0.5 MG PO (21:36)
[2024-04-12] MEDS: Ampicillin 1,000 MG in 0.9% Normal Saline (50mL MB+) 50 ML 150 MG IV ×2 (00:21→06:04)
[2024-04-12] MEDS: MELATONIN 3 MG TABLET PO (01:35)
[2024-04-12 01:48] VITALS: BP 137/91; PULSE 61; RESP 15; TEMP 36.8; O2SAT 92
[2024-04-12] MEDS: Ondansetron 4 MG/2 ML Vial IV (06:13)
[2024-04-12 07:44] VITALS: BP 131/82; PULSE 60; RESP 16; TEMP 37.1; O2SAT 95
[2024-04-12 07:55] LABS: Basophil# 0.05 X10^3/uL; Basophil% 0.9 % (0-1); Eosinophil# 0.08 X10^3/uL; Eosinophils% 1.4 % (0-5); Hematocrit 39.2 % (40-54); Hemoglobin 13.9 g/dL (13.0-16.5); Lymphocyte % 17.5 % (19-41); Mean Corp Hgb Conc 35.5 g/dL (32-36); Mean Corpuscular Volume 93.1 fL (80-94); Mean Platelet Vol. 9.7 fl (6.2-12.0); Monocyte# 0.48 X10^3/uL; Monocyte% 8.4 % (0-10); NRBC Flagged by Analyzer 0 % (0-5); Neutrophil # 3.99 X10^3/uL (2.7-7.7); Neutrophil % 69.9 % (47-70); Platelet Count 238 K/mm3 (150-450); RBC Distribution Width SD 41.1 fl (35.1-43.9); Red Blood Count 4.21 M/mm3 (4.6-6.2); White Blood Count 5.7 K/mm3 (4.4-11.0)
[2024-04-12] MEDS: Multivitamins,Ther W-Minerals Tablet 1 TABLET PO (07:56)
[2024-04-12 08:25] LABS: Anion Gap 5 (5-15); BUN 10 mg/dL (7-18); Calcium,Total 8.5 mg/dL (8.5-10.1); Chloride 103 mmol/L (98-107); Creatinine, Serum 0.62 mg/dL (0.70-1.30); EST Glomerular Filtration Rate 134 mL/min (>60); Est Glom Filt Rate - Afr Amer 162 mL/min (>60); Estimated Creatinine Clearance 84.91 ml/min; Glucose 123 mg/dL (74-106); Potassium 3.3 mmol/L (3.5-5.1); Sodium Level 134 mmol/L (136-145)
--- NOTE | 2024-04-12 09:49 | TREXTCAR_ITS ---
Diet Diet Order/Speech Therapy: 04/10/24 17:50 Diet: Regular - General Is pt able to select menu?: Yes Routine Orders/Code Status Enema Type: Fleetz Enema Frequency: Daily PRN Suppository Type: Dulcolax 10mg Suppository Frequency: Daily PRN O2 Frequency: PRN Keep PO Greater than or Equal to (%): 90 Wound(s) BACK: Wound Type: Surgical Incision Therapies Weight Bearing: Weight bearing as tolerated Physical Therapy: Eval and Treat Occupational Therapy: Eval and Treat Problem/Diagnosis (1) Unilateral primary osteoarthritis, left hip: Status: Acute Code(s): M16.12 - Unilateral primary osteoarthritis, left hip (2) Low back pain: Status: Acute Code(s): M54.50 - Low back pain, unspecified Plan #Debility due to intractable low back pain and osteoarthritis of the left hip as well T12 compression fracture * s/p T12 percutaneous vertebral cement augmentation. Today is POD 1. * pain is better controlled today. * PT/OT on board. * Fall precautions * Orthopedic surgery on board. On p.o. oxycodone and IV Dilaudid for pain. Tylenol on hold due to mild elevated liver enzymes. * MRI done showed T12 compression fracture and T2 and STIR hyperintensity in T12 suggestive of acute or subacute fracture with hip x-ray showing left severe osteoarthritis. Imaging of thoracic and cervical spine did not show any central stenosis or cord compression. * #Elevated liver enzymes in the setting of alcoholic fatty liver disease * Liver enzymes were mildly elevated. INR was 1.1. Thought to be due to fatty liver disease. Right upper quadrant ultrasound showed hepatomegaly with fatty infiltration. * Liver enzymes trending downwards. AST and ALT have normalized. Will continue to monitor. #Hypokalemia: Potassium is 3.3. Replace and trend. #UTI * Was recently diagnosed with urinary retention and had Godinez catheter inserted on 03/31/2024. He had a urine catheter inserted in the ED with plans to follow- up with urology on outpatient basis. * Urine culture growing Enterococcus and now on IV ampicillin. * * # History of alcohol use disorder: Has recently not been drinking much so was not started on acute alcohol withdrawal protocol and admission. Will monitor for signs of withdrawal. #Hypokalemia: Resolved #Depression and anxiety: On sertraline and Ativan as needed #Hypertension: On amlodipine. Valsartan held . IV hydralazine as needed DVT prophylaxis: Lovenox Disposition: DC to rehab after cement augmentation by spine surgery tomorrow. Allergies/Procedures Done in Hospital Allergies No Known Allergies Allergy (Verified 04/07/24 12:54) Procedures: None Type of Care/Length of Stay Estimated LOS: Convalescent Care Less Than 30 days Type of Care Needed: Skilled Rehab Potential: Fair Prognosis: Fair Additional Orders/Day of Discharge Day of Discharge: 04/12/24 Discharge Plan Admission Admit Date/Time: 04/07/24 16:04 Primary Reason for Your Visit: debility due to T12 compression fracture Attending Provider: Celeste Lion Primary Care Provider: Rachele Pratt Consulting Providers: Too Rizzo; Federico Aguirre; Nixon Baez; Gallo Farias Instructions Patient Instructions: Compression Fx Discharge Orders/Prescriptions Prescriptions: New nitrofurantoin monohyd/m-cryst [Macrobid] 100 mg capsule 100 mg PO BID Qty: 6 0RF Rx Instructions: must administer with a meal/food tamsulosin 0.4 mg Capsule 0.4 mg PO BID Qty: 60 2RF finasteride 5 mg Tablet 5 mg PO DAILY Qty: 30 2RF Continued lorazepam 1 MG tablet 1 mg PO DAILY PRN PRN (Reason: Anxiety) Patient Comments: ANXIETY esomeprazole magnesium [Nexium] 40 MG capsule 40 mg PO DAILY Patient Comments: ACID REFLUX amlodipine-valsartan [Exforge] 1 TAB tablet 160 mg PO DAILY Patient Comments: HEART/BLOOD PRESSURE cholecalciferol (vitamin D3) [Vitamin D3] 1,000 UNIT capsule 1 cap PO QWEEK Patient Comments: PT REPORTS HE TAKES 1 CAPSULE EVERY 3 DAYS VITAMIN Therems-M 1 TABLET tablet 1 tab PO DAILYCM Qty: 30 0RF Patient Comments: VITAMIN oxycodone-acetaminophen 5-325 mg tablet 1 tab PO Q6H PRN PRN (Reason: Pain) 3 Days Qty: 12 0RF sertraline [Zoloft] 25 mg tablet 25 mg PO DAILY Qty: 30 0RF Referrals / Follow Up: Too Rizzo MD [Med Staff - Active Staff] - Within 2 Weeks Nixon Baez MD [Med Staff - Active Staff] - Within 2 Weeks Rachele Pratt CAMP COORDINATOR-C [Primary Care Provider] - Within 2 Weeks Disposition Disposition (needs filled in before D/C Order can be placed): Long Term Facility
--- NOTE | 2024-04-12 09:50 | PCM.DC.SUM ---
Providers Date of Admission: 04/07/24 Date of Discharge: 04/12/24 Primary Care Physician: Rachele Pratt, ANGELICA Consultations 04/07/24 17:56 Consult: Orthopedics Routine Consulting Provider: Too Rizzo Reason for Consult: severe L hip OA w/ concern for avasc necrosis, MRI hip pending EMERGENT Consult: No Notified: Yes Date Notified: 04/08/24 Time Notified: 07:14 Method of Notification: Text 04/08/24 13:57 Consult: Urology Routine Consulting Provider: Nixon Baez Reason for Consult: follow up from Er visit with cather placement EMERGENT Consult: No Notified: Yes Date Notified: 04/08/24 Time Notified: 17:00 Method of Notification: Text Reason For Visit: INTRACTABLE LOW BACK & LEFT HIP PAIN, DEHYDRATION Diagnosis Discharge Diagnosis (1) Unilateral primary osteoarthritis, left hip: Status: Acute Code(s): M16.12 - Unilateral primary osteoarthritis, left hip (2) Low back pain: Status: Acute Code(s): M54.50 - Low back pain, unspecified Plan #Debility due to intractable low back pain and osteoarthritis of the left hip as well T12 compression fracture s/p T12 percutaneous vertebral cement augmentation. Today is POD 1. pain is better controlled today. PT/OT on board. Fall precautions Orthopedic surgery on board. On p.o. oxycodone and IV Dilaudid for pain. Tylenol on hold due to mild elevated liver enzymes. MRI done showed T12 compression fracture and T2 and STIR hyperintensity in T12 suggestive of acute or subacute fracture with hip x-ray showing left severe osteoarthritis. Imaging of thoracic and cervical spine did not show any central stenosis or cord compression. #Elevated liver enzymes in the setting of alcoholic fatty liver disease Liver enzymes were mildly elevated. INR was 1.1. Thought to be due to fatty liver disease. Right upper quadrant ultrasound showed hepatomegaly with fatty infiltration. Liver enzymes trending downwards. AST and ALT have normalized. Will continue to monitor. #Hypokalemia: Potassium is 3.3. Replace and trend. #UTI Was recently diagnosed with urinary retention and had Donnelly catheter inserted on 03/31/2024. He had a urine catheter inserted in the ED with plans to follow-up with urology on outpatient basis. Urine culture growing Enterococcus and now on IV ampicillin. # History of alcohol use disorder: Has recently not been drinking much so was not started on acute alcohol withdrawal protocol and admission. Will monitor for signs of withdrawal. #Hypokalemia: Resolved #Depression and anxiety: On sertraline and Ativan as needed #Hypertension: On amlodipine. Valsartan held . IV hydralazine as needed DVT prophylaxis: Lovenox Disposition: DC to rehab after cement augmentation by spine surgery tomorrow. Medications at Discharge Home Medications amlodipine 10 mg-valsartan 160 mg tablet (Exforge) 160 mg PO DAILY 07/01/14 cholecalciferol (vitamin D3) 25 mcg (1,000 unit) capsule (Vitamin D3) 1 cap PO QWEEK 07/01/14 esomeprazole magnesium 40 mg capsule,delayed release (Nexium) 40 mg PO DAILY 07/01/14 lorazepam 1 mg tablet 1 mg PO DAILY PRN PRN Anxiety 07/01/14 multivitamin,[id number] 27 mg-0.4 mg tablet (Therems-M) 1 tab PO DAILYCM ##30 07/03/14 oxycodone-acetaminophen 5 mg-325 mg tablet 1 tab PO Q6H PRN PRN Pain 3 days #12 TABLETS 11/11/23 sertraline 25 mg tablet (Zoloft) 25 mg PO DAILY #30 tabs 03/31/24 finasteride 5 mg tablet 5 mg PO DAILY #30 tabs 04/12/24 nitrofurantoin monohydrate/macrocrystals 100 mg capsule (Macrobid) 100 mg PO BID #6 caps 04/12/24 tamsulosin 0.4 mg capsule 0.4 mg PO BID #60 caps 04/12/24 Hospital Course Operations - (vertebral cement augmentation of T12) Procedures None Summary of Care Provided Minutes Spent on Discharge: 55 Hospital Course: Patient is a 74 y/o male with a PMH as outlined who was admitted via the ED on 04/07/2024 with a complaint of intractable back pain with worsening debility. He has a history of osteoarthritis and had been having left hip pain with difficulty ambulation. He had not been able to ambulate well and could barely get off his couch. Imaging done showed severe left hip articular space narrowing, with no fracture noted and lumbar spine xray showed chronic wedging at T12 with facet hypertrophic changes from L3-S1, but no evidence of fracture. Xray of the left hip showed possible avascular necrosis. He was admitted and managed for intractable lower back pain. He also had elevated liver enzymes, and also had UTI per urinalysis. He also had urinary retention and had a donnelly catheter inserted by urology. He was started on IV ceftriaxone. Orthopedic surgery consulted o/a of low back pain. Urology reviewed patient o/a of urinary retention and patient started on flomax and finasteride. MRI of the lumbar spine showed showed T12 compression fracture and T2 and STIR hyperintensity in T12 suggestive of acute or subacute fracture with hip x-ray showing left severe osteoarthritis. Imaging of thoracic and cervical spine did not show any central stenosis or cord compression. He had cement augmentation of the T12 compression fracture by orthopedic surgery on 04/10/2024. Liver enzymes trended downwards. Urine cultures grew Enterococcus sensitive to ampicillin and he was placed on IV ampicillin. He was skilled as needing SNF, and was discharged to SNF on 04/12/2024. He was discharged on a 3 day course of nitrofurantoin for the UTI, as well as being given a script for PO flomax and proscar. He is to follow up with orthopedic surgery, PCP and urology within 1-2 weeks. Patient seen and examined prior to discharge. He had no active complaints and had an uneventful night. Review of systems was otherwise negative. Labs and vitals reviewed and reconciled. Physical Exam Const alert, oriented x3 and no apparent distress General Appearance: cooperative, comfortable and well developed Orientation / Consciousness: awake HEENT normocephalic, head/scalp atraumatic, hearing grossly normal bilaterally, nasal mucous membranes and turbinates normal, moist oral mucous membranes and oropharynx normal Mouth: oral and palatal mucosa normal Eyes PERRL, EOMs intact bilaterally and conjunctivae normal Neck full ROM, no lymphadenopathy and supple Lymph Lymphatic: no lymphadenopathy noted and no lymphedema noted Chest inspection of chest normal Resp normal respiratory effort, normal air movement, no retractions, no use of accessory muscles and clear to auscultation bilaterally Cardio regular rate, regular rhythm, S1 normal heart sound, S2 normal heart sound, no murmurs and peripheral pulses 2+ throughout GI normal to inspection, nondistended, normoactive bowel sounds, soft to palpation, non-tender and non-distended Extremity normal to inspection, full ROM, normal capillary refill, no clubbing, cyanosis or edema, no calf tenderness and no pedal edema General Extremity: no tenderness to palpation of joints or extremities Skin no rashes or lesions noted General Skin Exam: no breakdown Neuro oriented x3, CN's II-XII intact bilaterally, moves all extremities, no focal motor deficits, no sensory deficits noted and deep tendon reflexes 2+ bilaterally Speech: speech normal Motor Exam: strength 5/5 throughout and general weakness Psych mental status grossly normal, thought process normal and cooperative Appearance: appropriate Weight / BMI Weight Weight: 190 lb 11.198 oz Body Mass Index (BMI) 27.3 ABG / Lab / Microbiology Data 04/12/24 06:52 04/12/24 06:52 Laboratory: Laboratory Results - last 24 hr 04/11/24 06:54: Total PSA 0.49 04/12/24 06:52: WBC 5.7, RBC 4.21 L, Hgb 13.9, Hct 39.2 L, MCV 93.1, MCH 33.0 H, MCHC 35.5, RDW Std Deviation 41.1, RDW Coeff of Jay 12.0, Plt Count 238, MPV 9.7, Immature Gran % (Auto) 1.900 H, Neut % (Auto) 69.9, Lymph % (Auto) 17.5 L, [place] % (Auto) 8.4, Eos % (Auto) 1.4, Baso % (Auto) 0.9, Absolute Neuts (auto) 4.0, Absolute Lymphs (auto) 1.00, Nucleated RBC % 0, Sodium 134 L, Potassium 3.3 L, Chloride 103, Carbon Dioxide 26.0, Anion Gap 5, BUN 10, Creatinine 0.62 L, Estim Creat Clear Calc 84.91, Est GFR (MDRD) Af Amer 162, Est GFR (MDRD) Non-Af 134, BUN/Creatinine Ratio 16.0, Glucose 123 H, Calcium 8.5 Microbiology: Microbiology 04/07/24 13:00 Urine, Clean Catch Urine Culture - Final Enterococcus faecalis D/C Instructions Discharge Diet: Low fat / Low cholesterol Discharge Activity: Return to Normal Activity Weight Bearing Status: Weight bearing as tolerated Call your doctor if you observe: Fever of 101 or Higher, Shortness of breath, Dizziness, Swelling in the ankles and Chest pain Meaningful Use Info Meaningful Use Meaningful Use Diagnoses (Choose all that apply): None applicable Ischemic Stroke Statin Dosing Therapy Reference: STATIN DOSE THERAPY REFERENCE: * Patients > 75 years receive moderate or high dose statin therapy. * Patients 75 years or YOUNGER should receive HIGH intensity statin dose unless contraindicated. You will be required to document reason for non-treatment if statin daily dose does not meet guidelines. HIGH DOSE STATIN THERAPY DAILY Atorvastatin > than or = to 40 mg Rosuvastatin > than or = to 20 mg Amlodipine + Atorvastatin > than or = to 2.5/40 mg Ezetimibe + Simvastatin 10/80 mg Simvastatin 80mg Discharge Plan Admission Admit Date/Time: 04/07/24 16:04 Primary Reason for Your Visit: debility due to T12 compression fracture Attending Provider: Celeste Lion Primary Care Provider: Rachele Pratt Consulting Providers: Too Rizzo; Federico Aguirre; Nixon Baez; Gallo Farias Instructions Patient Instructions: Compression Fx Discharge Orders/Prescriptions Prescriptions: New nitrofurantoin monohyd/m-cryst [Macrobid] 100 mg capsule 100 mg PO BID Qty: 6 0RF Rx Instructions: must administer with a meal/food tamsulosin 0.4 mg Capsule 0.4 mg PO BID Qty: 60 2RF finasteride 5 mg Tablet 5 mg PO DAILY Qty: 30 2RF Continued lorazepam 1 MG tablet 1 mg PO DAILY PRN PRN (Reason: Anxiety) Patient Comments: ANXIETY esomeprazole magnesium [Nexium] 40 MG capsule 40 mg PO DAILY Patient Comments: ACID REFLUX amlodipine-valsartan [Exforge] 1 TAB tablet 160 mg PO DAILY Patient Comments: HEART/BLOOD PRESSURE cholecalciferol (vitamin D3) [Vitamin D3] 1,000 UNIT capsule 1 cap PO QWEEK Patient Comments: PT REPORTS HE TAKES 1 CAPSULE EVERY 3 DAYS VITAMIN Therems-M 1 TABLET tablet 1 tab PO DAILYCM Qty: 30 0RF Patient Comments: VITAMIN oxycodone-acetaminophen 5-325 mg tablet 1 tab PO Q6H PRN PRN (Reason: Pain) 3 Days Qty: 12 0RF sertraline [Zoloft] 25 mg tablet 25 mg PO DAILY Qty: 30 0RF Referrals / Follow Up: Too Rizzo MD [Med Staff - Active Staff] - Within 2 Weeks Nixon Baez MD [Med Staff - Active Staff] - Within 2 Weeks Rachele Pratt ASSET PROTECTION ASSOCIATE-C [Primary Care Provider] - Within 2 Weeks Disposition Disposition (needs filled in before D/C Order can be placed): [facility] Charges/Coding Visit Charges Inpatient E&M: 39655 Disch Hosp >30min
[2024-04-12] MEDS: Tamsulosin HCl 0.4 MG Capsule PO (10:04)
[2024-04-12] MEDS: Enoxaparin 40 MG/0.4 ML Syringe SC (10:04)
[2024-04-12] MEDS: Pantoprazole Sodium 40 MG Tablet PO (10:05)
[2024-04-12] MEDS: Finasteride 5 MG Tablet PO (10:05)
[2024-04-12] MEDS: amLODIPine 10 MG Tablet PO (10:05)
[2024-04-12] MEDS: Sertraline 50 MG Tablet 25 MG PO (10:05)
[2024-04-12] MEDS: Potassium Chloride Oral Tablet 20 MEQ 40 MEQ PO (10:12)
--- NOTE | 2024-04-12 11:05 | CASEMGMT ---
Social Work SW completed the hospital exemption in the [facility] system. D/C mega Cardenas will set up the discharge. VERONIKA Fragoso
--- NOTE | 2024-04-12 11:36 | CASEMGMT ---
Discharge Planning Discharge orders, signed med list, and transport time sent to [facility] [place]. Physicians will transport patient by wheelchair at 1p. Nursing, SW, patient, and his updated. Theresa Hernandez, Discharge Planning Asst.
== END 2024-04-12 13:00 | disposition skilled nursing facility (03) | DRG 516 ==
LOC: ED 15:34 → MS3 15:41
PROVIDERS: Anesthesiology; Family Medicine; Orthopaedic Surgery Orthopaedic Surgery of the Spine; Admitting Provider Hospitalist; Emergency Provider Emergency Medicine; PCP Nurse Practitioner Family; Visit Provider Student in an Organized Health Care Education/Training Program
PROC: XNU4356 Supplement Thoracic Vertebra with Mechanically Expandable (Paired) Synthetic Substitute, Percutaneous Approach, New Technology Group 6 (ICD-10-PCS; principal; 2024-04-10 11:45)
DX: M54.50 Low back pain, unspecified (principal); S22.080A Wedge compression fracture of T11-T12 vertebra, initial encounter for closed fracture; M87.052 Idiopathic aseptic necrosis of left femur; T83.511A Infection and inflammatory reaction due to indwelling urethral catheter, initial encounter; N39.0 Urinary tract infection, site not specified; G20.C Parkinsonism, unspecified; K70.9 Alcoholic liver disease, unspecified; F10.10 Alcohol abuse, uncomplicated; I10 Essential (primary) hypertension; F32.A Depression, unspecified; M16.12 Unilateral primary osteoarthritis, left hip; E87.6 Hypokalemia; M51.36 Other intervertebral disc degeneration, lumbar region; M47.819 Spondylosis without myelopathy or radiculopathy, site unspecified; K76.0 Fatty (change of) liver, not elsewhere classified; M51.37 Other intervertebral disc degeneration, lumbosacral region; M48.061 Spinal stenosis, lumbar region without neurogenic claudication; G25.2 Other specified forms of tremor; W19.XXXA Unspecified fall, initial encounter; Z87.891 Personal history of nicotine dependence; B95.2 Enterococcus as the cause of diseases classified elsewhere; R53.81 Other malaise; R29.890 Loss of height; R33.9 Retention of urine, unspecified; R29.6 Repeated falls; Y92.009 Unspecified place in unspecified non-institutional (private) residence as the place of occurrence of the external cause
CPT/HCPCS: 36415; 72020; 72100; 72148; 73502; 76000; 76705; 80048; 80053; 81001; 84153; 84484; 85025; 85027; 85610; 85730; 87077; 87086; 87088; 87186; 88307; 88311; 94668; 97162; 97165; 97530; 97535; 99283; 99406; J7030; J7120; A4216; J0290; J2405

== ENCOUNTER → 2024-05-30 | Outpatient (CLI) | payer MEDICARE, OTHER, SELFPAY ==
--- NOTE | 2024-05-30 06:45 | ECHOD_ITS ---
Reason For Study: ESSENTIAL HYPERTENSION Procedure This was a 2D Doppler, Color Flow transthoracic echocardiogram. Exam performed in department. Left Ventricle Normal LV size. Left ventricular systolic function is normal. The left ventricular ejection fraction is 60 %. Stage 1 diastolic dysfunction. No regional wall motion abnormalities noted. Right Ventricle Normal RV size. Normal systolic function. Atria Normal left atrium. Normal right atrium. Mitral Valve Normal mitral valve. Tricuspid Valve Normal tricuspid valve. Mild (1+) tricuspid valve insufficiency. Pulmonary artery systolic pressure is 30 mmHg. Aortic Valve Trisinus/trileaflet aortic valve. Pulmonic Valve Normal pulmonic valve. Great Vessels Normal aortic root. The pulmonary artery is normal size. Normal inferior vena cava. Pericardium/Pleural No pericardial effusion. MMode/2D Measurements & Calculations LVIDd: 5.0 cm IVSd: 1.2 cm Ao root diam: 3.3 cm LVIDs: 3.5 cm LVPWd: 1.1 cm RVDd: 3.7 cm FS: 29.5 % LAV(MOD-bp): 46.9 ml LVAd ap4: 27.4 cm2 LVAd ap2: 26.7 cm2 LAV(MOD-bp) Indexed: 22.7 ml/m2 LVLd ap4: 8.0 cm LVLd ap2: 8.0 cm LAV(MOD-sp2): 43.3 ml EDV(MOD-sp4): 79.4 ml EDV(MOD-sp2): 76.6 ml LAV(MOD-sp4): 41.7 ml EDV(sp4-el): 80.2 ml EDV(sp2-el): 76.1 ml LVAs ap4: 14.6 cm2 LVAs ap2: 13.2 cm2 LVLs ap4: 6.0 cm LVLs ap2: 6.0 cm ESV(MOD-sp4): 31.5 ml ESV(MOD-sp2): 26.7 ml ESV(sp4-el): 30.2 ml ESV(sp2-el): 24.7 ml EF(MOD-sp4): 60.3 % EF(MOD-sp2): 65.2 % EF(sp4-el): 62.4 % SV(MOD-sp4): 47.8 ml SV(MOD-sp2): 49.9 ml SV(sp4-el): 50.0 ml LA dimension(2D): 4.3 cm TAPSE: 1.9 cm LA A4 area: 16.5 cm2 Time Measurements MV dec time: 0.27 sec Doppler Measurements & Calculations MV E max yosi: 60.3 cm/sec Lat Peak E' Yosi: 8.0 cm/sec Med Peak E' Yosi: 7.3 cm/sec MV A max yosi: 67.6 cm/sec E/E' lat: 7.5 E/E' med: 8.2 MV E/A: 0.89 MV V2 max: 85.2 cm/sec MV P1/2t max yosi: 68.9 cm/sec Ao V2 max: 127.7 cm/sec MV max P.9 mmHg MV P1/2t: 81.7 msec Ao max P.5 mmHg MV V2 mean: 39.4 cm/sec MV dec slope: 246.9 cm/sec2 Ao V2 mean: 83.1 cm/sec MV mean P.78 mmHg Ao mean P.3 mmHg MV V2 VTI: 23.0 cm MVA(P1/2t): 2.7 cm2 Ao V2 VTI: 27.8 cm AV (velocity ratio): 0.74 LV V1 max: 96.1 cm/sec PA V2 max: 143.9 cm/sec TR max yosi: 259.8 cm/sec LV V1 max P.7 mmHg PA V2 mean: 91.1 cm/sec TR max P.0 mmHg LV V1 mean P.8 mmHg LV V1 mean: 62.2 cm/sec LV V1 VTI: 20.5 cm ECHO/Echo Complete Interpretation Summary Normal LV size. Left ventricular systolic function is normal. The left ventricular ejection fraction is 60 %. Stage 1 diastolic dysfunction. Pulmonary artery systolic pressure is 30 mmHg. Ordering Physician: Rachele Pratt Referring Physician: Rachele Pratt Performed By: Danitza Glaser, LAINA, RVT
--- NOTE | 2024-05-30 06:45 | RAD_ITS ---
STUDY: X-RAY CHEST REASON FOR EXAM: Male, 74 years old. Hypertension, preoperative study TECHNIQUE: PA and lateral views of the chest. COMPARISON: 03/31/2024 FINDINGS: The lungs are clear and expanded. There is no demonstrated pleural abnormality. Normal size heart. Normal mediastinum and pearl. Normal visualized pulmonary arteries. Normal visualized aortic arch and descending thoracic aorta. Remote compression fracture T12 is undergone vertebroplasty. Normal visualized ribs, clavicles, and shoulders. There is no demonstrated abnormality of the visualized soft tissue structures of the upper abdomen. RAD/Chest PA and Lateral IMPRESSION: No acute pulmonary process Electronically Signed: Shlomo Hart MD at 8:26 EDT ,
== END | disposition home or self-care (01) ==
PROVIDERS: PCP Nurse Practitioner Family; Referring Provider Nurse Practitioner Family; Visit Provider Nurse Practitioner Family
DX: Z01.818 Encounter for other preprocedural examination (principal); I10 Essential (primary) hypertension; I25.10 Atherosclerotic heart disease of native coronary artery without angina pectoris
CPT/HCPCS: 71046; 93306

== ENCOUNTER 2024-06-04 14:28 | Observation (INO) | payer MEDICARE, OTHER, SELFPAY ==
[2024-05-30 08:28] LABS: Albumin, Serum 3.9 g/dL (3.2-5.0); Magnesium 2.1 mg/dL (1.6-2.6)
--- NOTE | 2024-06-01 12:04 | HP.PCM_ITS ---
History and Physical History and Physical Patient Name: Bhaskar Segura : 1950 From:? DANIEL BARBOZA PA-C DATE OF PRE-OPERATIVE EXAM: 05/28/2024 DATE OF SURGERY:? 06/04/2024 SCHEDULED PROCEDURE:? Direct anterior left total hip arthroplasty HISTORY OF PRESENT ILLNESS: Preoperative history and physical exam was performed on May 28, 2024.? This is a 74-year-old male who is been having ongoing pain with his left hip for years.? He has soreness throughout the hip.? He has had a previous fall early in 2023.? Patient was initially scheduled to go for surgery however he did sustain a T12 compression fracture in which he was admitted to the hospital.? He underwent a kyphoplasty.? has obtained clearance from the back specialist to proceed f orward with the total hip replacement.? Patient is still recovering at the long term facility.? He has been working on strengthening and ambulation to avoid falls.? Patient's pain is located in the groin on the left side.? He denies any numbness and tingling.? Pain does awaken him at nighttime for the hip.? He has had difficulty putting on his socks and shoes.? He has increased pain with stairs, driving, sitting, walking.? Pain getting up from a seated position.? Patient has difficulty with bathing and showering due to the pain.? He has fallen secondary to the hip pain.? Patient has been using a wheelchair and walker.? He has had previous injections with the left hip with minimal relief.? Patient's also reports patient having a shuffled gait.? Patient has medical history pertinent for hypertension, anxiety/depression, benign prostatic hyperplasia, gastroesophageal reflux disease.? After failing conservative measures and discussing all treatment options with Dr. Lul Villar, the patient does wish to proceed forward with a direct anterior left total hip arthroplasty.? Patient has been treated with catheter and followed by urologist .? Patient reports it was just found on urinalysis he had a staph infection.? He is currently on amoxicillin.? He is asymptomatic currently.? Patient's surgical clearance is also pending as patient has echocardiogram and chest x-ray scheduled for May 30, 2024.? Patient has been following our nutrition protocol.? We are placing an order for A1c as his blood glucose has been elevated with previous labs.? Patient currently denies any chest pain, shortness of breath, fevers chills.? Denies past history of DVT or pulmonary embolism. REVIEW OF SYSTEMS: Review Of Systems: Constitutional: Denies change in appetite, fever,or weight change. Cardiovasular: Denies chest pain, heart murmur and irregular heartbeat. Respiratory: Reports wheezing, but denies cough, pneumonia, shortness of breath and tuberculosis. Gastrointestinal: Reports heartburn, but denies constipation, diarrhea, nausea, rectal itching, bloody stools and vomiting. Genitourinary: Denies incontinence. Musculoskeletal: Denies leg swelling, pain, trouble walking and weakness. Skin: Denies Raynaud's, history of shingles and tattoo. Neurological: Denies ambulatory dysfunction, dizziness, numbness/tingling and tremor. Psychiatric: Reports anxiety, but denies insomnia and stress. Hematologic/Lymphatic: Denies anemia, bleeding/bruising tendency and past transfusion. Reviewed and updated. PAST MEDICAL HISTORY: Advance Care Plan: Other Directive, LIVING WILL Effective Date: 01/13/2018 Past Medical History: Medical Problems: High Blood Pressure, Anxiety/Depression, Benign Prostatic Hyperplasia, Gastroesophageal Reflux Disease Accidents: None Fracture - (11/11/2023) broken ribs compression fracture Surgical Hx: None Anesthesia Complications: None Assistive Devices: Glasses - REAding, wheel chair - as needed while resident at [place] Reviewed and updated. SOCIAL HISTORY: Social History: Marital: did not answer.Occupation: Retired.Work Status: Retired.Hand Dominance: Left-Handed. Personal Habits:? Cigarette Use: Former.Smokeless Tobacco: Never Used Smokeless Tobacco.E-Cigarette Use: Never used.Alcohol: did not answer.Drug Use: Denies Use.Enjoy Exercising: Did Not Answer. Reviewed and updated. VITALS: BP: 128/76 Pulse: 78 T: 96.9 T: 36.1C Pain Level: 2 O2SatR: 94 ALLERGIES: No Known Drug Allergy MEDICATIONS: Lorazepam 1 mg 1 tab po daily, Nexium 24HR Clear Minis 20 mg one daily, Losartan Potassium 50 mg one daily, Tylenol Extra Strength 500 mg 2 by mouth every 8 hours, Finasteride 5 mg take 1 tablet by mouth every day, Sertraline HCL 50 mg, Hydroxyzine HCL 25 mg take 1 tablet by mouth every day at bedtime as needed for anxiety, Uexsjclojr-Ndrjobaio-NSPP 10-160-25 mg, Amoxicillin 500 mg 3 by mouth as needed for uti, Bisacodyl 10 mg daily, Flomax 0.4 mg 1 by mouth every day, Pantoprazole Sodium 40 mg 1 by mouth every day, D3 Adult 25 mcg (1000 Ut) one per day by mouth, Zofran 4 mg one by mouth every 8 as needed nausea PRE-OP EXAM: General appearance:NORMAL? Other: Eyes: Conjunctivae and lids: NORMAL? Pupils: ERR Ears, Nose, Mouth, and Throat: NORMAL? Other: Inspection of lips, teeth and gums: NORMAL?? Other: Neck: Examination of neck: no masses noted. Respiratory: Assessment of respiratory effort: NORMAL?? Other: ? Auscultation of lungs: clear to auscultation no wheezes, rhonchi or rales. Cardiovascular:? Auscultation of heart: regular rate and rhythm, no murmurs, gallops or rubs. PHYSICAL EXAMINATION: Patient presents in a wheelchair today.? Exam was limited.? Patient does have tenderness to palpation over the lateral hip.? He complains of left groin pain with any range of motion.? Crepitus with range of motion.? Per previous documentation with Dr. Lul Villar patient has actually 1 cm shorter left leg when compared to right.? Sensation intact to light touch. IMAGING STUDIES: Previous x-rays of the left hip shows joint space narrowing, subchondral sclerosis, osteophyte formation consistent with severe stage IV bone on bone erosive osteoarthritis.? There is erosion and flattening of the femoral head as well as shortening of the left hip in comparison to the right when using the lesser trochanters. IMPRESSION: 1.? Severe left hip osteoarthritis 2.? Hypertension 3.? Anxiety/depression 4.? Benign prostatic hyperplasia 5.? Gastroesophageal reflux disease 6.? Recent Urinary Tract Infection:? currently on Amoxicillin PLAN: Dr. Lul Villar did discuss and review with the patient all treatment options including surgical versus nonsurgical options.? Patient does wish to proceed with the above-stated procedure.? Potential risks, benefits, and complications of the procedure were discussed in detail including but not limited to , infection, nerve and blood vessel damage, persistent pain, numbness, tingling, paresthesias, blood clot, pulmonary embolism, and requirement for possible further surgery.? The patient expressed full understanding and has no further questions for the doctor.? Patient does agree to proceed with the above-stated procedure and has signed the surgery consent form. POST-OP MEDICATION PLAN: Pain Medications:? Postoperative pain regimen will be initiated by Dr. Lul Villar in the hospital.? Case was discussed with Dr. Lul Villar and at this time okay to proceed with surgery as long as patient is asymptomatic with his previous infection.? Patient is currently residing at the [facility].? Plan will be for patient to return to the long term [facility] for postoperative strengthening.? We are still awaiting official clearance from the primary care provider as patient has an upcoming echocardiogram and chest x-ray on May 30, 2024.? We did get surgical clearance from the computer technical specialist from his recent T12 kyphoplasty. DVT Prophylaxis:? Aspirin 81 mg twice daily for 4 weeks postoperatively.? Denies past history of DVT or pulmonary embolism This dictation was created using voice recognition software. Phonetic and/or grammatical errors may exist. ___? I have re-examined the patient.? There are no clinical changes since date of exam. ___? See progress notes for changes. ___? Dictated on admission Date: ? Time: Signature: 06/01/24 (TueJun 01) 12:03 PM? Daniel Barboza Added Addendum: Patient did have his echocardiogram and chest x-ray on May 30, 2024 at [facility].? However we have not received the official clearance from Rachele Pratt.? We were able to talk to staff member that was in the office today in which they state that she will give the official clearance on Iggy morning.? Their office is closed today on June 01, 2024.? Patient never did get his A1c checked at the hospital and we will have patient get this prior to surgery when he arrives at the hospital.
[2024-06-04] VITALS (15 sets, daily range): BP systolic 90–138; BP diastolic 55–80; PULSE 60–78; RESP 16–18; TEMP 36.3–36.8; O2SAT 93–100; BMI 25.2
[2024-06-04 11:55] LABS: Bedside Glucose 103 mg/dL (74-106)
[2024-06-04] MEDS: Magnesium 1 GM over 15 mins IV (11:58)
[2024-06-04] MEDS: Lactated Ringers 1,000 ML 15 ML IV (11:58)
--- NOTE | 2024-06-04 11:58 | PCM.PRE.AN2 ---
ASA Classification* ASA Classification ASA Classification: 3 Assessment & Plan Anesthesia* Anesthesia Assessment Anesthesia Assessment: Discussed sedation and/or anesthesia options, risks, benefits, and alternatives with patient/parents/legal guardian/POA. Questions invited. The patient/parents/legal guardian/POA seems to understand and agrees to proceed with anesthesia plan. Reviewed the physical assessment, medical history, allergy history and patient home medications list prior to surgery/procedure/anesthetic and documented any changes. Performed airway and anesthesia risk assessments. Anesthesia Type Anesthesia Type: Spinal (ga backup) Anesthesia Focused Assessment* Airway Assessment Mouth opens: 2 cm Mallampati Score: III Focused Labs Anesthesia Preop lab: CBC WBC 5.7 K/mm3 (4.4-11.0) 04/12/24 06:52 RBC 4.21 M/mm3 (4.6-6.2) L 04/12/24 06:52 Hgb 13.9 g/dL (13.0-16.5) 04/12/24 06:52 Hct 39.2 % (40-54) L 04/12/24 06:52 Plt Count 238 K/mm3 (150-450) 04/12/24 06:52 CHEMISTRY Potassium 3.3 mmol/L (3.5-5.1) L 04/12/24 06:52 Sodium 134 mmol/L (136-145) L 04/12/24 06:52 Magnesium 2.1 mg/dL (1.6-2.6) 05/30/24 07:36 Phosphorus 3.5 mg/dL (2.5-4.9) 07/01/14 06:35 BUN 10 mg/dL (7-18) 04/12/24 06:52 Creatinine 0.62 mg/dL (0.70-1.30) L 04/12/24 06:52 Glucose 123 mg/dL (74-106) H 04/12/24 06:52 POC Glucose 103 mg/dL (74-106) 06/04/24 11:28 TSH 0.49 uIU/mL (0.358-3.74) 03/08/19 14:32 COAG PT 14.2 SECONDS (11.7-14.9) 04/07/24 15:00 Pre-Assessment Diagnosis/Proposed Procedure Planned Operative Procedure(s): ANTERIOR LEFT TOTAL HIP ARTHROPLASTY Anesthesia History Anesthesia History - principal programmer: Anesthesia History - principal programmer Hx Hospitalization Yes: 03/2024 FOR COMPRESSION 05/28/24 14:17 FX Any Problems With Anesthesia No 05/28/24 14:17 Cholinesterase deficiency No 05/28/24 14:17 You/Your Family Experience No 05/28/24 14:17 fever (hyperthermia) with Relationship Recent Exposure to Contagious No 04/09/24 20:59 Disease Does patient have nerve No 05/28/24 14:17 stimulator Patient instructed to have device shut off --Does patient have Pacemaker or ICD? When Was Last Pacemaker Check QUESTION #4 FULL TEXT: You/Your Family Experience fever (hyperthermia) with Anesthesia Last Oral Intake Last Oral intake: Last Oral Intake NPO since Meds taken in AM with sips of water? Meds patient instructed to take am of surgery PONV PONV - principal programmer: PONV - principal programmer Female No 05/28/24 14:17 HX of Motion Sickness No 05/28/24 14:17 HX of N/V After Surgery No 05/28/24 14:17 Non-Smoker Yes 05/28/24 14:17 Duration of Surgery greater Yes 05/28/24 14:17 than 60 minutes Number of Risk Factors 2 05/28/24 14:17 PONV Score Moderate Risk 05/28/24 14:17 Height & Weight Height & Weight: Anesthesia: Height & Weight Height 5 ft 10 in 04/10/24 08:20 Respiratory Assessment Respiratory Assessment - principal programmer: Respiratory Tract Infection Hx - principal programmer Hx Respiratory Tract Infection No 05/28/24 14:17 STOP Sleep Apnea STOP Sleep Apnea - principal programmer: STOP Sleep Apnea - principal programmer Hx Hypertension Yes: ON MED 05/28/24 14:17 Hx Sleep Apnea No 05/28/24 14:17 CPAP No 04/10/24 13:40 BIPAP No 04/07/24 17:56 Do you snore loudly (louder No 05/28/24 14:17 than talking or can be heard Do you often feel tired/ Yes 05/28/24 14:17 fatigued/ sleepy during daytime? Has anyone observed you stop No 05/28/24 14:17 breathing during sleep? STOP Results Positive 05/28/24 14:17 QUESTION #5 FULL TEXT : Do you snore loudly (louder than talking or can be heard through closed doors)? Tobacco Use History Tobacco Use History - principal programmer: Tobacco Use History - principal programmer Tobacco Use Cigarettes 04/29/21 08:54 Smoking Status Former smoker 05/28/24 14:17 Hx Tobacco Use Yes 05/28/24 14:17 Years Smoking Packs Smoked per Day Smoking Cessation Date was Yes - quit smoking within 15 05/28/24 14:17 within the last 15 years years Hx Smoking Cessation Date Hx Smoking Cessation No 05/28/24 14:17 Counseling Hematologic Medial History Hematologic Hx - principal programmer: Hematologic Medical Hx - hand former Hx of Blood Transfusion No 05/28/24 14:17 Hx of Transfusion in last 3 No 05/28/24 14:17 Months Date of Last Transfusion (if within last 3 months) Ever experience any problems No 05/28/24 14:17 with transfusion(s)? Specify any problems Hx of Preganancy in last 3 N/A 05/28/24 14:17 Months Nurse Filling Out Transfusion DSCHRIBER 05/28/24 14:17 & Questions: Date: 05/28/24 05/28/24 14:17 Time: 14:25 05/28/24 14:17 Patient unable to answer at this time (ie. confused, unrespo /Reproduction History /Reproductive History - principal programmer: /Reproductive Hx- principal programmer Hx Now No 05/28/24 14:17 Gestational Age (in weeks): EDC: Hx Hx Para Hx Section SAB No 05/28/24 14:17 Active Medications Active Medications: Current Medications Generic Name Dose Route Start Last Admin Trade Name Freq PRN Reason Stop Dose Admin Acetaminophen 1,000 mg 06/04/24 13:00 Acetaminophen 500 Mg Tablet PO 06/04/24 13:01 X1 ONE Celecoxib 400 mg 06/04/24 13:00 Celecoxib 200 Mg Capsule PO 06/04/24 13:01 X1 ONE Sodium Chloride 77.4 ml/ 0 ml 06/04/24 13:00 Ropivacaine 200 mg/ OPERA.SITE 06/04/24 13:01 Epinephrine HCl 0.6 mg/ X1 ONE Ketorolac Tromethamine 30 mg/ Morphine Sulfate 5 mg Dexamethasone Sodium Phosphate 10 mg 06/04/24 13:00 Dexamethasone 10 Mg/Ml Vial IV 06/04/24 13:01 X1 ONE Gabapentin 600 mg 06/04/24 13:00 Gabapentin 600 Mg Tablet PO 06/04/24 13:01 X1 ONE Cefazolin Sodium 2 gm/ Sodium 110 mls @ 150 mls/hr 06/04/24 13:00 Chloride IV 06/04/24 13:43 PREOP ONE Tranexamic Acid 1,000 mg/ 110 mls @ 660 mls/hr 06/04/24 13:00 Sodium Chloride IV 06/04/24 13:09 X1 ONE Tranexamic Acid 1,000 mg/ 110 mls @ 660 mls/hr 06/04/24 13:00 Sodium Chloride IV 06/04/24 13:09 X1 ONE Lactated Ringer's 1,000 mls @ 999 mls/hr 06/04/24 13:00 IV 06/04/24 14:00 .Q1H1M ROMAN Magnesium Sulfate 1 gm/ 102 mls @ 408 mls/hr 06/04/24 13:00 Dextrose IV 06/04/24 13:14 X1 ONE Lactated Ringer's 1,000 mls @ 15 mls/hr 06/04/24 11:15 IV .Q48H ROMAN Insulin Human Lispro 1 - 6 unit 06/04/24 13:00 Insulin Lispro 100 Unit/Ml Insuln.Pen SC Q4H PRN PRN BG>/= 180, SEE PROTOCOL Protocol PFSH Medical History Lives in [place] [facility] Essential tremor Depression Anxiety Arthritis Indwelling urethral catheter present Fatty liver Back pain Restless legs Dietary restriction History of hiatal hernia History of IBS Gastric reflux Former smoker History of pain when walking History of stress test Unilateral primary osteoarthritis, left hip Tremors of nervous system Gait instability Other intervertebral disc degeneration, lumbar region Low back pain T12 compression fracture Myelopathy Osteoarthritis of left hip Frequent falls Complicated UTI (urinary tract infection) Intractable low back pain Godinez catheter present Weakness HTN (hypertension) Home Medications ?Medication ?Instructions ?Recorded ?Last Taken ?Type amlodipine 10 mg-valsartan 160 mg 160 mg PO DAILY 07/01/14 Unknown History tablet (Exforge) cholecalciferol (vitamin D3) 25 1 cap PO DAILY 07/01/14 Unknown History mcg (1,000 unit) capsule (Vitamin D3) lorazepam 1 mg tablet 1 mg PO DAILY PRN PRN Anxiety 07/01/14 04/01/24 History multivitamin,mb-evbp-grwaiqtu 27 1 tab PO DAILYCM #30 TABLETS 07/03/14 Unknown Rx mg-0.4 mg tablet (Therems-M) finasteride 5 mg tablet 5 mg PO DAILY #30 tabs 04/12/24 Unknown Rx acetaminophen 500 mg capsule 1,000 mg PO Q8H PRN PRN pain 05/28/24 Unknown History melatonin 10 mg capsule 10 mg PO QHS 05/28/24 Unknown History pantoprazole 40 mg tablet,delayed 40 mg PO DAILY 05/28/24 Unknown History release tamsulosin 0.4 mg capsule 0.4 mg PO QHS 05/28/24 Unknown History ondansetron HCl 4 mg tablet 4 mg PO Q6H PRN nausea and vomiting 06/04/24 Unknown History sertraline 50 mg tablet 50 mg PO DAILY 06/04/24 Unknown History sulfamethoxazole 800 1 tab PO BID 06/04/24 Unknown History mg-trimethoprim 160 mg tablet (Bactrim DS) tamsulosin 0.4 mg capsule (Flomax) 0.4 mg PO QHS 06/04/24 Unknown History Allergy/AdvReac Type Severity Reaction Status Date / Time No Known Allergies Allergy Verified 06/04/24 11:46 Surgical History History of kyphoplasty Social History Smoking Status: Former smoker Review of Systems (Anesthesia) ROS Narrative System reviewed and no additional complaints, except as documented.
--- NOTE | 2024-06-04 12:00 | RAD_ITS ---
STUDY: X-RAY - PELVIS AND LEFT HIP REASON FOR EXAM: Male, 74 years old. PAIN TECHNIQUE: 2 views of the pelvis and hip. COMPARISON: None. FINDINGS: Fluoroscopy of the left hip is utilized operating room during arthroplasty in 6 images are cemented for interpretation. . RAD/Hip 1 view with Pelvis IMPRESSION: Fluoroscopy during left hip arthroplasty. Electronically Signed: Jeffrey Hicks MD at 10:21 EDT ,
[2024-06-04 12:05] LABS: Hemoglobin A1c 5.2 % (3.8-5.6)
[2024-06-04] MEDS: Celecoxib 200 MG Capsule 400 MG PO (12:23)
[2024-06-04] MEDS: Acetaminophen 500 MG Tablet 1000 MG PO ×2 (12:23→21:21)
[2024-06-04] MEDS: Gabapentin 600 MG Tablet PO (12:23)
--- NOTE | 2024-06-04 13:00 | FEM_PTH ---
PATIENT: WILBERT MCWILLIAMS LOC: [facility] U#:[id number] AGE/SX: 74/M ROOM: DE318 RE06/04/[address]: Dr. Kamron Barger MD : 1950 BED: 1 DIS: 06/06/2024 SPEC #: [id number] RECD: 06/04/24 15:13 STATUS: DEVIN RERosio #: [id number] CANDELARIA: 06/04/24 13:[address]: Lul Villar DEPT: SURGICAL PATHOLOGY RECD BY: Amber Hernandez ENTERED: 06/05/24 10:29 SP TYPE: FEM HEAD OTHR DR: MD Dr. Wagner Young MD Dr. Steven Widmer, MD Carolyn Graham, BUS ANALYST-C Tissues: Femoral region, NOS Procedures: Decalcification bone/plaque Surgery Specimen Level V Comments: @ Ordering doctor for DEC edited from to @ by SHAJI at 06/05/24 1203 @ Ordering doctor for SUV edited from to @ by SHAJI at 06/05/24 1203 @ Submitting doctor edited from to @ by SHAJI at 06/05/24 1203 HEADER OPERATION: Anterior left total hip arthroplasty PRE-OP DIAGNOSIS: Severe left hip osteoarthritis TISSUE SUBMITTED: Left hip femoral head bone and tissue MICROSCOPIC DIAGNOSIS Left hip bone and soft tissue, total hip replacement/resection: Femoral head with degenerative osteoarthritic changes. Fragments of fibroadipose tissue, fibroconnective tissue, skeletal muscle tissue and reactive synovial tissue. KAM: 06/08/2024 MICROSCOPIC DESCRIPTION Slides are reviewed. GROSS DESCRIPTION Received is one container labeled with the patient's name and designated bone and soft tissue left hip. The femoral head measures 5.5 x 5.5 x 4.5 cm. The articular surface displays prominent osteophyte formation, eburnation and bone erosion. Also present in the container is a detached piece of bone consistent with femoral neck measuring 4.5 x 3.5 x 1.0cm. Also present in the specimen container are multiple irregular fragments of bone reamings and pink-yellow soft tissue measuring in aggregate 8.0 x 8.0 x 3.0 cm. French Folding Machine Operator sections are submitted in two cassettes as follows: 1 - soft tissue, 2 - bone after decalcification. KAM/ 06/05/2024 TC:5 CPT: 02763, 96459
[2024-06-04] MEDS: Cefazolin 2 GM in 0.9% Normal Saline (100mL Bag) 100 ML IV (13:04)
[2024-06-04] MEDS: dexAMETHasone 10 MG/ML Vial IV (13:12)
[2024-06-04] MEDS: TXA 1000mg in NS100 100ml (IVPB at Incision) 660 MG IV (13:15)
[2024-06-04] MEDS: TXA 1000mg in NS100 100ml (IVPB at Closure) 660 MG IV (14:15)
[2024-06-04] MEDS: JPS (Morphine 10mg/ml) OPERA.SITE (14:25)
--- NOTE | 2024-06-04 14:27 | OP.PCM_ITS ---
Report of Operation Date of Procedure: 06/04/24 Pre-Operative Diagnosis: Left hip primary osteoarthritis Post-Operative Diagnosis: Left hip primary osteoarthritis Surgery/Procedure Performed:: Left minimally invasive direct anterior hip replacement Description of Surgical Findings:: Stable hip with equal leg lengths Surgeon: Lul Villar retail leasing agent: Daniel Boswell Type of Anesthesia: Spinal Anesthesiologist: Omar Larson Special Medications: 2 g Ancef, 1 g TXA at incision, 1 g TXA closure, 10 mg Decadron, joint cocktail (5 mg Duramorph, 30 mL of 0.5% Ropivicaine, 1000 units of epinephrine, 30 mg of Toradol) Specimen's removed: Bony cuts Estimated Blood Loss (mL): 300 Fluids Replaced: 1500 mL crystalloid Description of Procedure: Components used: 1. Insignia [place] femoral stem size 5 standard 2. Cami trident 2 acetabular shell size 56 mm 3. [place] X3 polyethylene F 4. [place] Biolox delta 36mm, 5mm femoral head Brief history operative indications: 74 yo M who failed conservative measures for their hip osteoarthritis. X-rays were consistent with osteoarthritis including joint space narrowing, osteophyte formation and subchondral cysts. Total hip replacement was discussed with the patient with risks and benefits including but not limited to blood loss, DVTs, PEs, neurovascular damage, dislocation, general risks of anesthesia including loss of life. Patient demonstrated an understanding medical clearance is obtained the patient was consented for surgery. Procedure: On the date of procedure the patient's L hip was marked in the preoperative area. Patient was then taken back to the operating room where anesthesia assumed control of the C-spine and airway and administered anesthetic. Patient was transferred to the operating table and placed in the supine position. The hips were placed at the break of the bed and a sacral bump was placed. L The lower extremity was then prepped out in a sterile fashion using chlorhexidine while the surgeon scrubbed. The PA was vital in the positioning of the patient. Upon reentering the room the left lower extremity was draped in the standard orthopedic fashion and the incision was marked. A timeout was called and e veryone agreed upon the side, the site, the procedure be performed, antibody given, and patient's identity. At this time incision was made through skin, subcutaneous tissue, and fat down to fascia. The fascia was then incised and the TFL was retracted laterally. A retractor was placed on the lateral border of the femoral neck. Attention was directed to the inferior portion of the approach and all crossing vessels were identified and appropriately coagulated. A retractor was then placed on the medial portion of the femoral neck. The anterior capsule was then cleared of all soft tissue and then H shaped capsulotomy was made. The retractors were then placed inside the capsule. The femoral neck was identified and a cleanup cut was made. At this time a power corkscrew was used to remove the femoral head. Attention was then turned toward the acetabulum where the soft tissues were appropriately retracted and the acetabulum was sequentially reamed to 56 mm. A 56 mm cup was then selected and impacted into place. Acetabular liner was impacted into place and locking mechanism was verified. The position of the acetabular cup was then verified under live fluoroscopy. Attention was then turned to the femur. Soft tissue releases on the medial and lateral femoral neck were appropriately done, the leg was externally rotated and lateralized. A Castle retractor was placed medially and proximally to the greater trochanter this allowed appropriate visualization and exposure of the femoral canal. Rongeour was then used to remove excess lateral bone. A canal finder and entry broach were used to open the proximal canal. Once we verified we were down the femoral canal we subsequently broached up to a size 5 femur. The appropriate neck was placed in the previously selected head was trialed with a 5 mm neck. Traction was pulled and the hip was reduced with internal rotation. Once it was appropriately reduced and stability was checked. There was minimal shuck, equal leg lengths and appropriate stability with hyperextension and external rotation as well as with 90? flexion and internal rotation. Fluoroscopy was then also used to verify the position of the componen ts and leg lengths using the contralateral side for comparison. The trial components were then dislocated the proximal femur was again exposed and the components were removed from the wound. The final components were verified and opened. The wound was copiously irrigated out with normal saline. The acetabulum was checked for any residual debris. The final components were placed and impacted. Traction and internal rotation were again used to reduce the hip. After adequate reduction the hip remained stable with appropriate leg lengths. The final components were once again checked with live fluoroscopy and were found to be satisfactory. The wound was then copiously irrigated with normal saline once more, and hemostasis was obtained. Closure was then done using #1 Vicryl runner to close the fascia. A 2-0 vicryl interuppted sutures were used to close the subcutaneous skin. A 3-0 Monocryl and Steri-Strips were used for final skin closure. A Silverlon dressing was placed. Patient was awakened by anesthesia and transferred [facility]. Patient was then transferred to the PACU for recovery. During the course of the procedure the physician manager merchandise (PE) played a vital role. Their intimate knowledge of my steps in the procedure aided in safe and expedient completion of the procedure. The PE played a vital rolls in positioning particularly in obtaining the appropriate positioning of the sacral bump. The PE was also vital in the retraction of soft tissues during the exposure and especially the femoral work as this is a vital part of the procedure to prevent complications and fractures. The PE was also vital and protecting soft tissues during times of bony cuts and reaming. He also played a vital role in closure with my direct supervision. The PE was also important during reduction and dislocation of the joint and trials intraoperatively. Postoperative plan: Patient will get 24 hours postop antibiotics. Patient will get in-house physical therapy and will be weight-bear as tolerated. Patient will follow up in office in 2 weeks for a wound check and x-rays. Aspirin 81 mg twice daily. Additionally, patient did test positive for staph and has previous UTI. Will continue his Bactrim for 2 weeks postoperatively as he is also going back to [facility]. Complications No intraoperative complications Admit VTE Documentation VTE Present on Admission: No VTE Mechan Device Prophylaxis: SCD's and Thigh High RAHEL Hose VTE Pharm Prophylaxis ordered?: Yes
--- NOTE | 2024-06-04 14:59 | EKG12_ITS ---
Test Reason : elevated st Blood Pressure : / mmHG Vent. Rate : 073 BPM Atrial Rate : 073 BPM P-R Int : 176 ms QRS Dur : 154 ms QT Int : 452 ms P-R-T Axes : 035 -11 008 degrees QTc Int : 497 ms Normal sinus rhythm Right bundle branch block Abnormal ECG Confirmed by Prince Lazcano ([id number]), editorial specialist CHAPO ROMERO ([id number]) on 06/07/2024 2:26:41 PM Referred By: Lul Villar Confirmed By:Prince Lazcano
[2024-06-04] MEDS: Lactated Ringers 1,000 ML 999 ML IV (15:15)
--- NOTE | 2024-06-04 15:37 | RAD_ITS ---
STUDY: X-RAY - PELVIS AND LEFT HIP REASON FOR EXAM: Male, 74 years old. Post Op -- AP both hips on single chitra/lateral of op hip PACU TECHNIQUE: 2 views of the pelvis and hip. COMPARISON: None. FINDINGS: There is a non-specific bowel gas pattern. Normal visualized soft tissue structures. Normal bilateral iliac wings, sacroiliac joints and visualized sacrum. Normal bilateral superior and inferior pubic rami. Normal pubic symphysis. Normal bilateral ischial tuberosities. Left hip prosthesis is noted in anatomic alignment and position. The right hip is normal RAD/Hip Min 2 Views (Portable) IMPRESSION: Stable appearance to left hip prosthesis post surgically. Electronically Signed: Tree Saul MD at 16:49 EDT ,
--- NOTE | 2024-06-04 15:42 | CASEMGMT ---
Social Work SW spoke w/surgeon, he states pt is here from [place] and would like to get pt back as soon as able to [facility], states he was told pt will return under the same level of care. SW sent updates to [place], inquired if pt is able to return whenever he is ready and what his level of care is. SW will continue to follow, it is anticipated pt will be able to return to [place] tomorrow. VERONIKA Fragoso
--- NOTE | 2024-06-04 16:07 | PCM.POST.ANE ---
Anesthesia: Postop Eval I Current Vital Signs Temperature: 97.6 F Pulse Rate: 76 Blood Pressure: 90/55 Respiratory Rate: 16 Pulse Ox: 93 Oxygen Delivery Method: Room Air Assessment Airway patent: Yes Spontaneous unlabored respirations: Yes Mental status: Awake and Calm nausea: No Vomiting: No Anesthesia Complication: No Fluid Hydration Crystalloid volume administer (ml): 1,200 Total IV fluid infused: 1,200 Progress Note Anesthesia document: Postop Eval 1 completed: Yes
[2024-06-04 16:22] LABS: Troponin-I HS 4 pg/mL (3.0-78.0)
--- NOTE | 2024-06-04 16:47 | SUR.PHASEI ---
AT APPPROX 1610, PATIENT C/O HAVING A FULL BLADDER FEELING. ATTEMPTED TO VOID PER URINAL WITHOUT SUCCESS. WANTS TO STAND AT SIDE OF BED, BUT IS NOT ALLOWED DUE TO RECENT SPINAL ANESTHESIA. BLADDER SCANNED FOR 644 CC. STRAIGHT CATHED USING STERILE TECHNIQUE FOR 700 CC CLEAR YELLOW URINE. PATIENT STATE IMMEDIATE RELIEF.
--- NOTE | 2024-06-04 16:49 | SUR.PHASEI ---
AT APRROXIMATELY, 1640, DR Toni LEDESMA CAME TO BEDSIDE TO SPEAK WITH PATIENT, AND LOOK AT EKG. DR. Toni LEDESMAD NOTIFIED OF TOPONIN RESULT OF 4. OK TO TRANSFER PATIENT TO [facility].
[2024-06-04] MEDS: Ensure Surgery 237 ML LIQUID PO (17:42)
[2024-06-04] MEDS: Ketorolac 15 MG/ML Vial IV (17:46)
[2024-06-04] MEDS: 0.9% Saline Lock 10 ML Syringe IV ×2 (17:47→21:19)
--- NOTE | 2024-06-04 18:00 | POSTOPAN2_ITS ---
Anesthesia Postop Eval I Sum Postop Eval Completion status Anesthesia document: Postop Eval 1 completed: Yes Anesthesia Postop Eval I Summary Anesthesia Postop Eval I Summary: Anesthesia Postop Eval I: Assessment Summary Airway patent Yes 06/04/24 16:07 MANAGER INVENTORY MANAGEMENT.VU Spontaneous unlabored Yes 06/04/24 16:07 MANAGER INVENTORY MANAGEMENT.VU respirations Mental status Awake,Calm 06/04/24 16:07 MANAGER INVENTORY MANAGEMENT.VU nausea No 06/04/24 16:07 MANAGER INVENTORY MANAGEMENT.VU Vomiting No 06/04/24 16:07 MANAGER INVENTORY MANAGEMENT.VU Anesthesia Postop Eval I: Fluid Summary Crystalloid volume administer 1,200 06/04/24 16:07 MANAGER INVENTORY MANAGEMENT.MDLEVI (ml) Colloids volume administered ( ml) Blood Product volume administered (ml) Total IV fluid infused 1,200 06/04/24 16:07 MANAGER INVENTORY MANAGEMENT.VU Anesthesia Postop Eval I: Summary Notes Anesthesia Complication No 06/04/24 16:07 MANAGER INVENTORY MANAGEMENT.VU Anesthesia Complication Comment: Post-operative progress note Anesthesia: Postop Eval II Evaluation Mental status: Awake Pain Level: 2 nausea: No Vomiting: No Complications Anesthesia Complication: No
--- NOTE | 2024-06-04 18:00 | PCM.POSTANE2 ---
Anesthesia Postop Eval I Sum Postop Eval Completion status Anesthesia document: Postop Eval 1 completed: Yes Anesthesia Postop Eval I Summary Anesthesia Postop Eval I Summary: Anesthesia Postop Eval I: Assessment Summary Airway patent Yes 06/04/24 16:07 LATHING SUPERVISOR.VU Spontaneous unlabored Yes 06/04/24 16:07 LATHING SUPERVISOR.VU respirations Mental status Awake,Calm 06/04/24 16:07 LATHING SUPERVISOR.VU nausea No 06/04/24 16:07 LATHING SUPERVISOR.VU Vomiting No 06/04/24 16:07 LATHING SUPERVISOR.VU Anesthesia Postop Eval I: Fluid Summary Crystalloid volume administer 1,200 06/04/24 16:07 LATHING SUPERVISOR.MDLEVI (ml) Colloids volume administered ( ml) Blood Product volume administered (ml) Total IV fluid infused 1,200 06/04/24 16:07 LATHING SUPERVISOR.VU Anesthesia Postop Eval I: Summary Notes Anesthesia Complication No 06/04/24 16:07 LATHING SUPERVISOR.VU Anesthesia Complication Comment: Post-operative progress note Anesthesia: Postop Eval II Evaluation Mental status: Awake Pain Level: 2 nausea: No Vomiting: No Complications Anesthesia Complication: No
--- NOTE | 2024-06-04 18:07 | CON.PCM.HO_ITS ---
Assessment & Plan Assessment/Plan (1) Arthritis: PLAN: Plan This is 74-year-old gentleman being admitted after elective surgery for left hip primary osteoarthritis. 1. Perioperative management of left minimally invasive direct anterior hip replacement: Patient is comfortable with no chest pain or shortness of breath. Pain controlled. PT and OT. Bowel and bladder care. 2. Hypertension controlled on amlodipine and low-dose. Blood pressure is in normal range. Home medication continued with holding parameters 3. Chronic alcoholic fatty liver disease: Patient has not been drinking much alcohol as he used to be in the past. Last liver chemistry in March 2024 shows total bilirubin 1.7, AST 25 ALT 60 alkaline phosphatase 71. Denies abdominal pain. 4. GERD and IBS: Home medication continued 5. Ex-smoker: Denies history of COPD. Was recommended oxygen at night but not using it. Follows Dr. Jose GONZALEZ. 6. BPH: On Flomax 0.4 mg daily and finasteride 7. Anxiety and depression: On sertraline continued. On lorazepam 1 mg p.o. daily. DVT prophylaxis as recommended by Dr. Monge. Recommended 30 days of DOAC Laboratory Results 06/04/24 11:28: POC Glucose 103 06/04/24 11:35: Hemoglobin A1c 5.2 06/04/24 15:08: Troponin I High Sens 4 HPI Consult Data Date of Consult: 06/04/24 HPI Narrative Reason for Consultation: Perioperative management of multiple comorbidities HPI Narrative: WILBERT MCWILLIAMS, is a 74 M who was admitted after elective left hip minimally invasive direct anterior hip replacement for left hip primary osteoarthritis. Patient does not have any acute symptoms now. Denies chest pain, shortness of breath, dizziness or palpitation. He spontaneously voided urine after surgery. Had bowel movement today. Patient has history of COPD/emphysema probably mild follows Dr. Jhony Yusuf. Patient not on any inhaler as he was not given, states he does not need it. He was prescribed oxygen during sleep but he states he does not feel any benefit and therefore not using it. Patient is ex-smoker quit many years ago about 20 years Denies history of [place] or coronary artery disease [facility] Medical History (Updated 06/04/24 @ 18:[address] Wagner Crandall MD) Lives in prison Essential tremor Depression Anxiety Arthritis Indwelling urethral catheter present Fatty liver Back pain Restless legs Dietary restriction History of hiatal hernia History of IBS Gastric reflux Former smoker History of pain when walking History of stress test Unilateral primary osteoarthritis, left hip Tremors of nervous system Gait instability Other intervertebral disc degeneration, lumbar region Low back pain T12 compression fracture Myelopathy Osteoarthritis of left hip Frequent falls Complicated UTI (urinary tract infection) Intractable low back pain Godinez catheter present Weakness HTN (hypertension) Home Medications ?Medication ?Instructions ?Recorded ?Last Taken ?Type amlodipine 10 mg-valsartan 160 mg 160 mg PO DAILY 07/01/14 06/04/24 History tablet (Exforge) cholecalciferol (vitamin D3) 25 1 cap PO DAILY 07/01/14 Unknown History mcg (1,000 unit) capsule (Vitamin D3) lorazepam 1 mg tablet 1 mg PO DAILY PRN PRN Anxiety 07/01/14 04/01/24 History multivitamin,zk-hmch-phrnwsdr 27 1 tab PO DAILYCM #30 TABLETS 07/03/14 Unknown Rx mg-0.4 mg tablet (Therems-M) finasteride 5 mg tablet 5 mg PO DAILY #30 tabs 04/12/24 Unknown Rx acetaminophen 500 mg capsule 1,000 mg PO Q8H PRN PRN pain 05/28/24 Unknown History melatonin 10 mg capsule 10 mg PO QHS 05/28/24 Unknown History pantoprazole 40 mg tablet,delayed 40 mg PO DAILY 05/28/24 Unknown History release tamsulosin 0.4 mg capsule 0.4 mg PO QHS 05/28/24 Unknown History ondansetron HCl 4 mg tablet 4 mg PO Q6H PRN nausea and vomiting 06/04/24 Unknown History sertraline 50 mg tablet 50 mg PO DAILY 06/04/24 Unknown History sulfamethoxazole 800 1 tab PO BID 06/04/24 06/04/24 History mg-trimethoprim 160 mg tablet (Bactrim DS) tamsulosin 0.4 mg capsule (Flomax) 0.4 mg PO QHS 06/04/24 Unknown History Allergy/AdvReac Type Severity Reaction Status Date / Time No Known Allergies Allergy Verified 06/04/24 11:46 Surgical History History of kyphoplasty Social History Smoking Status: Former smoker ROS ROS Narrative Constitutional: Reports mild chronic fatigue and weakness. No fever. long-term, [facility] of booster resident HEENT: Reports systems reviewed and no addt'l complaints, except as documented Respiratory/Chest: No acute shortness of breath or respiratory distress or wheezing. CVS: No chest pain or shortness of breath. Gastrointestinal: Denies coffee ground emesis, hematemesis or vomiting Genitourinary: Denies burning urination or new urinary tract symptoms Musculoskeletal: Right hip arthritis. Has been using a walker for the past 4 to 5 months. No acute injury Neurologic: Denies seizure-like symptoms. skin: No ulcer. No rash Endocrinology: Reports systems reviewed and no addt'l complaints, except as documented Hematologic/Lymphatic: Reports systems reviewed and no addt'l complaints, except as documented Rest 14 ROS are negative except as mentioned in HPI Physical Exam Narrative General: Alert, Oriented x3, Cooperative. BMI 25.3 kg/m? HEENT: Atraumatic, PERRLA, EOMI, Normocephalic Oral: No Gingival or Mucosal Lesions/ Ulcerations Neck: Supple, No JVD, Negative Carotid Bruits Chest wall/Lungs: Air entry diminished in bilateral lung bases. No crepitation/rhonchi. No hypoxia or tachypnea Cardiovascular: Regular rate, Regular Rhythm, Normal S1, Normal S2, No M/G/R Abdomen: Bowel Sounds Present, Soft, Non Tender, Non-Distended : No dysuria. No Godinez catheter. No renal angle tenderness. No suprapubic tenderness. Extremities: No edema, Capillary Refill Less than 3 Seconds Skin: No rashes, No breakdown Musculoskeletal: Left hip surgical dressing is dry. No hematoma or bruise. Mild expected tenderness low perioperative region. No Tenderness to Palpation of other joints or Extremities Neurological: Cranial nerves II-XII grossly intact, DTR 2+/4. No acute focal neurological deficit. Psych/Mental Status: Normal Affect, Appropriate. Lab / Micro Data Labs: Laboratory Results - last 24 hr 06/04/24 11:28: POC Glucose 103 06/04/24 11:35: Hemoglobin A1c 5.2 06/04/24 15:08: Troponin I High Sens 4 Imaging Radiology Impression Hip X-Ray 06/04/24 15:37 IMPRESSION: Stable appearance to left hip prosthesis post surgically. Electronically Signed: Tree Saul MD at 16:49 EDT , Charges/Coding Visit Charges Office Visits / Consults: [id number] OP Consult L4
[2024-06-04] MEDS: oxyCODONE 5 MG Tablet PO (20:04)
[2024-06-04] MEDS: Cefazolin 1 GM/50 ML BAG IV (21:18)
[2024-06-04] MEDS: LORazepam 1 MG Tablet PO (21:19)
[2024-06-04] MEDS: Senna/Docusate Sodium 1 Tablet 2 TABLET PO (21:20)
[2024-06-04] MEDS: Smz/Tmp Ds Tablet 1 TABLET PO (21:20)
[2024-06-04] MEDS: Aspirin 81 MG TAB.CHEW PO (21:20)
[2024-06-04] MEDS: MELATONIN 10 MG TABLET PO (21:21)
[2024-06-04] MEDS: Tamsulosin HCl 0.4 MG Capsule PO (21:21)
[2024-06-05 01:13] VITALS: BP 107/71; PULSE 50; RESP 16; TEMP 36.4; O2SAT 94
[2024-06-05] MEDS: Cefazolin 1 GM/50 ML BAG IV (04:17)
[2024-06-05 04:28] VITALS: BP 104/64; PULSE 53; RESP 16; TEMP 36.3; O2SAT 99
[2024-06-05] MEDS: Acetaminophen 500 MG Tablet 1000 MG PO ×3 (04:34→21:12)
[2024-06-05] MEDS: Famotidine 20 MG Tablet PO (04:35)
[2024-06-05 06:27] LABS: Hematocrit 33.1 % (40-54); Hemoglobin 11.3 g/dL (13.0-16.5); Mean Corp Hgb Conc 34.1 g/dL (32-36); Mean Corpuscular Hgb 31.4 pg (27.0-32.0); Mean Corpuscular Volume 91.9 fL (80-94); Platelet Count 198 K/mm3 (150-450); RBC Distribution Width CV 12.2 % (11.6-14.6); RBC Distribution Width SD 41.2 fl (35.1-43.9); White Blood Count 12.2 K/mm3 (4.4-11.0)
--- NOTE | 2024-06-05 06:48 | PCM.PN.ORT ---
Subjective Subjective The patient was sitting in bed upon examination. Patient denies any chest pain, shortness of breath, dizziness, lightheadedness, nausea or vomiting, or calf pain. Pain is controlled on medications. No adverse overnight events. Patient states she did have difficulty getting up to go to the bathroom with weakness. Prior to recent total hip arthroplasty patient did have a previous fall in which she sustained a compression fracture of T12. He did undergo kyphoplasty. He has been at the [facility] rehabilitating from this back injury. Nursing states they did have to straight cath patient today in which she had 600 mL on bladder scan. He does have history of benign prostatic hyperplasia and currently takes Flomax. Patient does complain of thigh soreness today. Objective Data Objective Data Vital Signs: Vital Signs Temp Pulse Resp BP Pulse Ox O2 Del Method O2 Flow Rate 97.4 F L 53 L 16 104/64 99 Room Air 4 06/05/24 04:28 06/05/24 04:28 06/05/24 04:28 06/05/24 04:28 06/05/24 04:28 06/05/24 04:28 06/04/24 16:15 Oxygen Flow Rate (L/min) 4 Oxygen Delivery Method Room Air Weight: 80 kg Body Mass Index (BMI) 25.2 Intake & Output: Intake and Output for Last 24 Hours 06/03/24 06/04/24 06/05/24 23:59 23:59 23:59 Intake Total 2568 / 2568 350 / 350 Output Total 700 / 800 1125 / 1125 Balance 1868 / 1768 -775 / -775 Lab / Micro Data 06/05/24 06:06 06/05/24 06:06 Labs: Laboratory Results - last 24 hr 06/04/24 11:28: POC Glucose 103 06/04/24 11:35: Hemoglobin A1c 5.2 06/04/24 15:08: Troponin I High Sens 4 06/05/24 06:06: WBC 12.2 H, RBC 3.60 L, Hgb 11.3 L, Hct 33.1 L, MCV 91.9, MCH 31.4, MCHC 34.1, RDW Std Deviation 41.2, RDW Coeff of Jay 12.2, Plt Count 198, MPV 10.0 Micro: Microbiology 05/30/24 07:36 Swab (Method) Nasal Screen MRSA/MSSA - Final Radiography Diagnostic Testing: Radiology Impression Hip X-Ray 06/04/24 15:37 IMPRESSION: Stable appearance to left hip prosthesis post surgically. Electronically Signed: Tree Saul MD at 16:49 EDT Reading Location ID and State: [address] [place] [address] Tel , Service support , Physical Exam Narrative Vital signs stable and afebrile. Left thigh is soft and supple SCDs and RAHEL hose are in place bilaterally Patient is able to plantarflex and dorsiflex actively. Sensation is intact to light touch to saphenous, sural, superficial and deep peroneal, and tibial distribution. Dressing is clean dry and intact. Negative Homans bilaterally, negative signs and symptoms of DVT. Const alert, oriented x3 and no apparent distress Assessment & Plan Assessment/Plan (1) S/P total left hip arthroplasty: PLAN: 1. S/P left direct anterior total hip arthroplasty POD #1 2. Continue Pain Medications: Tylenol, meloxicam, oxycodone. Do not take any other nonsteroidal anti-inflammatories while using meloxicam/Mobic. 3. DVT Prophylaxis: Take 81 mg aspirin twice daily for 4 weeks postoperatively for DVT prophylaxis. Patient denies past history of DVT or pulmonary embolism. 4. PT/OT: Weightbearing as tolerated with walker. Appreciate recommendations from physical therapy for discharge planning 5. H & H: 11.3/33.1, asymptomatic. Labs have been reviewed. BMP is pending 6. Reactive leukocytosis: 12.2, Afebrile. Patient did receive Decadron intraoperatively. No clinical signs of infection. 7. Patient will continue his Bactrim for 2 weeks postoperatively as patient did test positive for staph preoperatively. He is also being treated for urinary tract infection preoperatively. 8. Encouraged Incentive Spirometry 9. Patient is aware of postoperative constipation that can occur from 1-3 days postoperatively. Will continue with senna 2 tablets twice daily until first bowel movement. Patient was advised if not having a bowel movement after day 3 she is to contact orthopedics so appropriate change can be made. Patient voiced understanding. 10. Continue postoperative medical treatment per medicine: Patient did require straight cath this morning for urinary retention. Will continue his Flomax. 11. Disposition: At this time I do not feel patient is ready for discharge. Patient history is complicated with previous kyphoplasty from T12 compression fracture. He was placed in [facility] for rehabilitation for strength. He is currently at the [facility]. Case management is currently involved with discharge planning for return to the [facility]. Patient has required straight cath and we will continue to monitor. He will continue with his normal medication with Flomax at this time. Patient has been on Bactrim for previous urinary tract infection. He is also on this due to testing positive preoperatively for staph. Plan will be for probable discharge back to the detention facility tomorrow as long as patient is medically stable and approved from insurance standpoint. I do feel patient would benefit detention facility to continue to focus and work on strengthening for his lower extremities as this has been complicated with previous compression fracture. Appreciate recommendations from physical therapy as well. I have reviewed the [place] Automated Rx Reporting System (OARRS) report for this patient for refill pattern and other prescriber involvement as part of the appropriate surveillance for the provision of acute and chronic controlled medications. The report was requested and reviewed on the date of this entry and was considered in the prescribing process. This dictation was created using voice recognition software. Phonetic and/or grammatical errors may exist.
--- NOTE | 2024-06-05 07:12 | PCM.PN.HOSP ---
Reason for Visit Reason for Visit: Diagnoses Unspecified osteoarthritis, unspecified site (06/04/24) Encounter for preprocedural cardiovascular examination (06/04/24) Encounter for other preprocedural examination (06/04/24) Presence of left artificial hip joint (06/04/24) Subjective Subjective Patient is a 74-year-old gentleman who underwent left minimally invasive direct anterior hip replacement by Dr. Villar on 06/04/2024. Hospitalist service consulted to assist with management of patient medical comorbidities postoperatively Objective Data Objective Data Vital Signs: Vital Signs Temp Pulse Resp BP Pulse Ox O2 Del Method O2 Flow Rate 97.4 F L 53 L 16 104/64 99 Room Air 4 06/05/24 04:28 06/05/24 04:28 06/05/24 04:28 06/05/24 04:28 06/05/24 04:28 06/05/24 04:28 06/04/24 16:15 Oxygen Flow Rate (L/min) 4 Oxygen Delivery Method Room Air Weight: 80 kg Body Mass Index (BMI) 25.2 Intake & Output: Intake and Output for Last 24 Hours 06/03/24 06/04/24 06/05/24 23:59 23:59 23:59 Intake Total 2568 / 2568 350 / 350 Output Total 700 / 800 1125 / 1125 Balance 1868 / 1768 -775 / -775 Lab / Micro Data 06/05/24 06:06 06/05/24 06:06 Labs: Laboratory Results - last 24 hr 06/04/24 11:28: POC Glucose 103 06/04/24 11:35: Hemoglobin A1c 5.2 06/04/24 15:08: Troponin I High Sens 4 06/05/24 06:06: WBC 12.2 H, RBC 3.60 L, Hgb 11.3 L, Hct 33.1 L, MCV 91.9, MCH 31.4, MCHC 34.1, RDW Std Deviation 41.2, RDW Coeff of Jay 12.2, Plt Count 198, MPV 10.0 Micro: Microbiology 05/30/24 07:36 Swab (Method) Nasal Screen MRSA/MSSA - Final Radiography Diagnostic Testing: Radiology Impression Hip X-Ray 06/04/24 15:37 IMPRESSION: Stable appearance to left hip prosthesis post surgically. Electronically Signed: Tree Saul MD at 16:49 EDT Reading Location ID and State: [address] [place] [address] Tel , Service support , Physical Exam Narrative GENERAL: cooperative HEENT: Atraumatic; normocephalic EYES; Anicteric, Normal Conjunctiva NECK; supple, normal thyroid, RESPIRATORY: Diminished to auscultation CARDIOVASCULAR: Regular S1 S2, GI: soft, normoactive bowel sounds, : No Renal angle tenderness; EXTREMITIES: No edema, no clubbing, MUSCULOSKELETAL:Left Hip surgical dressing intact NEURO: Awake; no lateralizing signs. SKIN: No Rash PSYCH; Flat affect Assessment & Plan Assessment/Plan (1) Arthritis: PLAN: Plan Patient is a 74-year-old gentleman who underwent left minimally invasive direct anterior hip replacement by Dr. Villar on 06/04/2024. Hospitalist service consulted to assist with management of patient medical comorbidities postoperatively 1. Status post left direct anterior total hip arthroplasty ? Procedure was performed on 06/05/2024. Patient postoperative orders regarding pain management, PT OT as well as DVT prophylaxis deferred to primary service 2. Essential hypertension ? Patient is on amlodipine/valsartan did continue with home dose 3. Chronic back pain ? With history of T12 compression fracture pain management as needed 4. BPH with lower urinary obstructive symptoms - Patient treated with tamsulosin and finasteride 5. GERD ? On PPI 6. Depression ? Patient is on sertraline 7. Anemia - Secondary to chronic disorder as well as expected blood loss from surgery. Monitoring H&H and transfuse if patient becomes symptomatic or hemoglobin falls below 7 8. DVT prophylaxis ? As per primary service patient was placed on aspirin 81 mg p.o. twice daily Time spent in the patient's overall evaluation,decision-making process, review of diagnostic data, adjustment of management, discussion with other providers, nursing nursing and ancillary staff involved in patient's care documentation, ... Minutes Advance planning; did discuss with the patient and family regarding advanced directives as well as CODE STATUS. Did explain the various scenarios involved ( FULL CODE, DNR CCA, DNR CCA with no intubation, and DNR CC and what each meant) patient to remain full code with CPR and intubation if needed. Order was placed. Time spent on discussion 16 minutes. Charges/Coding Visit Charges Inpatient E&M: 17999 Subs Hosp L2 Multi Select Codes Visit Charges Visit Charges: 95202 Subs Hosp L3 Hospitalists' Procedures Procedures: 97709 Advncd Care Plan 30 Min
[2024-06-05 07:16] LABS: AST(SGOT) 13 U/L (15-37); Alanine Aminotransfer ALT/SGPT 14 U/L (16-61); Albumin, Serum 3.1 g/dL (3.2-5.0); Alkaline Phosphatase 70 U/L (45-117); Anion Gap 4 (5-15); BUN 18 mg/dL (7-18); Calcium,Total 8.6 mg/dL (8.5-10.1); Chloride 107 mmol/L (98-107); Creatinine, Serum 1.06 mg/dL (0.70-1.30); EST Glomerular Filtration Rate 73 mL/min (>60); Est Glom Filt Rate - Afr Amer 88 mL/min (>60); Estimated Creatinine Clearance 64.09 ml/min; Globulin 3.1 g/dL (2.2-4.2); Glucose 232 mg/dL (74-106); Potassium 4.1 mmol/L (3.5-5.1); Protein, Total 6.2 g/dL (6.4-8.2); Sodium Level 133 mmol/L (136-145)
[2024-06-05] MEDS: Aspirin 81 MG TAB.CHEW PO ×2 (07:54→21:11)
[2024-06-05] MEDS: Multivitamins,Ther W-Minerals Tablet 1 TABLET PO (07:54)
[2024-06-05] MEDS: Pantoprazole Sodium 40 MG Tablet PO (07:55)
[2024-06-05] MEDS: Cholecalciferol (VIT D3) 25 MCG TABLET (1,000 UNITS) PO (07:55)
[2024-06-05] MEDS: Senna/Docusate Sodium 1 Tablet 2 TABLET PO ×2 (07:55→21:12)
[2024-06-05] MEDS: Smz/Tmp Ds Tablet 1 TABLET PO ×2 (07:55→21:13)
[2024-06-05] MEDS: Finasteride 5 MG Tablet PO (07:55)
[2024-06-05] MEDS: Sertraline 50 MG Tablet PO (07:55)
[2024-06-05 09:01] VITALS: BP 105/69; PULSE 58; RESP 18; TEMP 36.3; O2SAT 97
[2024-06-05 13:46] VITALS: BP 101/68; PULSE 69; RESP 18; TEMP 36.9; O2SAT 95
[2024-06-05] MEDS: oxyCODONE 5 MG Tablet PO ×2 (13:48→20:21)
--- NOTE | 2024-06-05 14:05 | CASEMGMT ---
Social Work- SW met with pt to discuss preferences at d/c. Pt was in the room and participated in discussion as well. Pt preference is to return to [facility]. SW sent updates to [facility] and asked for verification that pt could return under medicare. BASIA Sanford
--- NOTE | 2024-06-05 14:54 | CASEMGMT ---
Met with patient to complete FUNK form. FUNK form explained to patient who voiced understanding and signed form. Original form placed in pt?s chart and copy provided to patient. Theresa Hernandez, Discharge Planning Asst
[2024-06-05 17:05] VITALS: BP 112/61; PULSE 73; RESP 18; TEMP 36.7; O2SAT 96
--- NOTE | 2024-06-05 17:33 | NURSING ---
Pt not voiding much this shift. Last time was 100ml then 30 minutes later bladder scanned for 323. Informed pt that the next step was to put a Donnelly in since this was the third time to straight cath him. Pt refused and said that he feels like he will be able to void on his own after the anesthesia wears off. Dr. Mishra made aware and said we could hold off on the donnelly at this time. Pt aware and will just try getting up and voiding more frequent.
[2024-06-05 21:00] VITALS: BP 107/72; PULSE 62; RESP 16; TEMP 36.6; O2SAT 97
[2024-06-05] MEDS: LORazepam 1 MG Tablet PO (21:11)
[2024-06-05] MEDS: Tamsulosin HCl 0.4 MG Capsule PO (21:11)
[2024-06-05] MEDS: MELATONIN 10 MG TABLET PO (21:13)
[2024-06-06] MEDS: oxyCODONE 5 MG Tablet PO (02:12)
[2024-06-06 02:32] VITALS: BP 101/66; PULSE 66; RESP 16; TEMP 36.6; O2SAT 96
[2024-06-06] MEDS: Acetaminophen 500 MG Tablet 1000 MG PO (05:39)
--- NOTE | 2024-06-06 07:28 | PCM.PN.HOSP ---
Reason for Visit Reason for Visit: Diagnoses Unspecified osteoarthritis, unspecified site (06/04/24) Encounter for preprocedural cardiovascular examination (06/04/24) Encounter for other preprocedural examination (06/04/24) Presence of left artificial hip joint (06/04/24) Subjective Subjective Patient went into acute urinary retention the day prior resulting in patient being straight cathed a couple of times Objective Data Objective Data Vital Signs: Vital Signs Temp Pulse Resp BP Pulse Ox O2 Del Method O2 Flow Rate 97.9 F 66 16 101/66 96 Room Air 4 06/06/24 02:32 06/06/24 02:32 06/06/24 02:32 06/06/24 02:32 06/06/24 02:32 06/06/24 02:32 06/04/24 16:15 Oxygen Flow Rate (L/min) 4 Oxygen Delivery Method Room Air Weight: 80 kg Body Mass Index (BMI) 25.2 Intake & Output: Intake and Output for Last 24 Hours 06/04/24 06/05/24 06/06/24 23:59 23:59 23:59 Intake Total 2568 / 2568 710 / 710 Output Total 700 / 800 1225 / 1625 1000 / 1000 Balance 1868 / 1768 -515 / -915 -1000 / -1000 Lab / Micro Data 06/06/24 09:43 06/05/24 06:06 Micro: Microbiology 05/30/24 07:36 Swab (Method) Nasal Screen MRSA/MSSA - Final Radiography Diagnostic Testing: Radiology Impression Hip/Pelvis X-Ray 06/04/24 12:00 IMPRESSION: Fluoroscopy during left hip arthroplasty. Electronically Signed: Jeffrey Hicks MD at 10:21 EDT , Physical Exam Narrative GENERAL: cooperative HEENT: Atraumatic; normocephalic EYES; Anicteric, Normal Conjunctiva NECK; supple, normal thyroid, RESPIRATORY: Diminished to auscultation CARDIOVASCULAR: Regular S1 S2, GI: soft, normoactive bowel sounds, : No Renal angle tenderness; EXTREMITIES: No edema, no clubbing, MUSCULOSKELETAL:Left Hip surgical dressing intact NEURO: Awake; no lateralizing signs. SKIN: No Rash PSYCH; Flat affect Assessment & Plan Assessment/Plan (1) Arthritis: PLAN: Plan Patient is a 74-year-old gentleman who underwent left minimally invasive direct anterior hip replacement by Dr. Villar on 06/04/2024. Hospitalist service consulted to assist with management of patient medical comorbidities postoperatively 1. Status post left direct anterior total hip arthroplasty ? Procedure was performed on 06/05/2024. Patient postoperative orders regarding pain management, PT OT as well as DVT prophylaxis deferred to primary service ? 06/06/2024; patient seen has tolerated PT well so far 2. Essential hypertension ? Patient is on amlodipine/valsartan did continue with home dose ? 06/06/2024 blood pressure remained stable 3. Chronic back pain ? With history of T12 compression fracture pain management as needed 4. BPH with lower urinary obstructive symptoms - Patient treated with tamsulosin and finasteride ? 06/06/2024; patient went into acute urinary retention resulting in patient being straight cathed multiple times 5. GERD ? On PPI 6. Depression ? Patient is on sertraline 7. Anemia - Secondary to chronic disorder as well as expected blood loss from surgery. Monitoring H&H and transfuse if patient becomes symptomatic or hemoglobin falls below 7 8. DVT prophylaxis ? As per primary service patient was placed on aspirin 81 mg p.o. twice daily Time spent in the patient's overall evaluation,decision-making process, review of diagnostic data, adjustment of management, discussion with other providers, nursing nursing and ancillary staff involved in patient's care documentation, 35 Minutes Charges/Coding Visit Charges Inpatient E&M: 90054 Subs Hosp L2
[2024-06-06 09:01] VITALS: BP 114/72; PULSE 69; RESP 16; TEMP 36.7; O2SAT 96
--- NOTE | 2024-06-06 09:42 | PN.ORTHO_ITS ---
Subjective Subjective The patient was sitting in bed upon examination. Patient denies any chest pain, shortness of breath, dizziness, lightheadedness, nausea or vomiting, or calf pain. Pain is controlled on medications. No adverse overnight events. Patient did well with therapy today. He walked with contact-guard 150 feet. Case management did clarify that patient is able to go back to [facility] facility today. Patient does have soreness in his left hip but tolerable on medications. Patient has been able to urinate on his own. He did require straight cath yesterday. He has maintained his Flomax and finasteride. Per Dr. Lul Villar patient will continue his antibiotic for 2 weeks postoperatively. Objective Data Objective Data Vital Signs: Vital Signs Temp Pulse Resp BP Pulse Ox O2 Del Method O2 Flow Rate 97.9 F 66 16 101/66 96 Room Air 4 06/06/24 02:32 06/06/24 02:32 06/06/24 02:32 06/06/24 02:32 06/06/24 02:32 06/06/24 02:32 06/04/24 16:15 Oxygen Flow Rate (L/min) 4 Oxygen Delivery Method Room Air Weight: 80 kg Body Mass Index (BMI) 25.2 Intake & Output: Intake and Output for Last 24 Hours 06/04/24 06/05/24 06/06/24 23:59 23:59 23:59 Intake Total 2568 / 2568 710 / 710 Output Total 700 / 800 1225 / 1625 1000 / 1000 Balance 1868 / 1768 -515 / -915 -1000 / -1000 Lab / Micro Data 06/05/24 06:06 06/05/24 06:06 Micro: Microbiology 05/30/24 07:36 Swab (Method) Nasal Screen MRSA/MSSA - Final Radiography Diagnostic Testing: Radiology Impression Hip/Pelvis X-Ray 06/04/24 12:00 IMPRESSION: Fluoroscopy during left hip arthroplasty. Electronically Signed: Jeffrey Hicks MD at 10:21 EDT , Physical Exam Narrative Vital signs stable and afebrile. Left thigh is soft and supple SCDs and RAHEL hose are in place bilaterally Patient is able to plantarflex and dorsiflex actively. Sensation is intact to light touch to saphenous, sural, superficial and deep peroneal, and tibial distribution. Dressing is clean dry and intact. Negative Homans bilaterally, negative signs and symptoms of DVT. Const alert, oriented x3 and no apparent distress Assessment & Plan Assessment/Plan (1) S/P total left hip arthroplasty: PLAN: 1. S/P left direct anterior total hip arthroplasty POD #2 2. Continue Pain Medications: Tylenol, meloxicam, oxycodone. Do not take any other nonsteroidal anti-inflammatories while using meloxicam/Mobic. 3. DVT Prophylaxis: Take 81 mg aspirin twice daily for 4 weeks postoperatively for DVT prophylaxis. Patient denies past history of DVT or pulmonary embolism. 4. PT/OT: Weightbearing as tolerated with walker. Appreciate recommendations from physical therapy for discharge planning 5. H & H: Yesterday 11.3/33.1, asymptomatic. Awaiting today's lab order for CBC. 6. Reactive leukocytosis: Yesterday 12.2, currently afebrile. Patient did receive Decadron intraoperatively. No clinical signs of infection. 7. Patient will continue his Bactrim for 2 weeks postoperatively as patient did test positive for staph preoperatively. He is also being treated for urinary tract infection preoperatively. 8. Encouraged Incentive Spirometry 9. Patient and nursing reports patient did have a bowel movement yesterday. Will only use the senna on an as-needed basis for constipation. 10. Continue postoperative medical treatment per medicine: Patient did require straight cath yesterday for urinary retention. Patient has been able to urinate on his own. We did discuss risks of postoperative urinary retention. He will continue his current Flomax and finasteride. 11. Disposition: Patient has done well with therapy today. His pain is controlled on medications. Medically he is stable. Case management has verified that patient is able to go back to the [facility] facility today. Patient will return to the [facility] continuing physical therapy and above medications. Patient does have postoperative follow-up with orthopedics scheduled. At that time we will get x-rays and suture removal as long as incision is healing appropriately. Patient will remove the dressing on postoperative day #5. He is able to shower with the Mepilex dressing on while at the senior care. Once the dressing has been removed patient is okay to use gentle soap and water over the incision. Do not submerge underwater for 6 weeks postoperatively. No topical ointments over the incision for 6 weeks postoperatively. Upon discharge patient will contact our office with any concerns or questions. Discharge order will be placed. Postoperative med rec and narcotic medication will be placed on chart. Case was discussed with case management. I have reviewed the [place] Automated Rx Reporting System (OARRS) report for this patient for refill pattern and other prescriber involvement as part of the appropriate surveillance for the provision of acute and chronic controlled medications. The report was requested and reviewed on the date of this entry and was considered in the prescribing process. This dictation was created using voice recognition software. Phonetic and/or grammatical errors may exist.
[2024-06-06] MEDS: Famotidine 20 MG Tablet PO (09:46)
[2024-06-06] MEDS: Multivitamins,Ther W-Minerals Tablet 1 TABLET PO (09:46)
[2024-06-06] MEDS: Smz/Tmp Ds Tablet 1 TABLET PO (09:46)
[2024-06-06] MEDS: Aspirin 81 MG TAB.CHEW PO (09:46)
[2024-06-06] MEDS: Finasteride 5 MG Tablet PO (09:47)
--- NOTE | 2024-06-06 09:47 | CASEMGMT ---
Social Work SW spoke with Norma at the [facility] who confirms pt does not need a new 3 day stay to return to SNF. Pt can return anytime under a skilled level of care. Patience Sanchez PA notified. Plan: Return to [facility], when medically ready BASIA Wade
[2024-06-06] MEDS: Sertraline 50 MG Tablet PO (09:48)
[2024-06-06] MEDS: Meloxicam 7.5 MG Tablet PO (09:48)
[2024-06-06] MEDS: Cholecalciferol (VIT D3) 25 MCG TABLET (1,000 UNITS) PO (09:48)
[2024-06-06] MEDS: Pantoprazole Sodium 40 MG Tablet PO (09:48)
--- NOTE | 2024-06-06 09:50 | DCINST_ITS ---
Discharge Instructions Diet Discharge Diet: No restrictions Activity Discharge Activity: May Not Drive (No driving until you can walk 100 feet with use of cane and off all narcotics) May shower in (days): 1 (only if incision is dry and without drainage. Do NOT soak/submerge in tub/pool/qiu/stream/hot tub.)) Ice area for (Minutes): 20 (Every 1-2 hours while [address] barrier between ice and skin.) Weight Bearing Status: Weight bearing as tolerated (With walker) Keep extremity elevated above heart level: Operative Extremity Dressing / Incision Call your doctor if your incision/area has: Continuous Slow Oozing, Sudden Increased Bleeding, Increased Pain/ Swelling, Increased Redness and Foul Smelling Discharge Call your doctor if you observe: Fever of 101 or Higher, Shortness of breath, Chest pain, Calf discomfort and Uncontrolled pain Remove Dressing in: 3 days (Okay to remove Mepilex dressing on June 09, 2024) Additional Dressing/Incision Instructions:: Follow [facility] Post-op Instructions. Once postoperative dressing has been removed, only use gentle soap and water over the incision. Do not use any ointments, Neosporin, salves, alcohol pads over the incision for 6 weeks postoperatively. Do not submerge underwater for 6 weeks postoperatively. Continue with RAHEL hose/elastic stockings for 2 weeks postoperatively. May remove at nighttime but needs to be placed back on the leg during the day. Do NOT use alcohol with narcotic pain medication. Do NOT make important decisions while taking narcotic medication. If you have problems with taking your medication (rash, itching, nausea, etc.) call the office at once. Follow Up Care Test Results: Test results from this visit will be discussed in further detail at your follow- up appointment, if applicable. Discharge Plan Admission Admit Date/Time: 06/04/24 14:28 Attending Provider: Kamron Barger Primary Care Provider: Rachele Pratt Consulting Providers: Wagner Crandall; Lul Villar Discharge Orders/Prescriptions Prescriptions: New aspirin 81 mg capsule 81 mg PO BID 30 Days Qty: 60 0RF Rx Instructions: Take 81 mg aspirin twice daily for 4 weeks postoperatively for DVT prophylaxis. Patient denies past history of DVT or pulmonary embolism. meloxicam 7.5 mg Tablet 7.5 mg PO BID 30 Days Qty: 60 0RF oxycodone 5 mg Tablet 5 - 10 mg PO Q4H PRN PRN (Reason: as needed for pain) 5 Days Qty: 42 0RF sennosides-docusate sodium [Stool Softener-Stimulant Laxat] 8.6-50 mg Tablet 2 tab PO BID Qty: 0 0RF Rx Instructions: Only use as needed if postoperative constipation Continued lorazepam 1 MG tablet 1 mg PO DAILY PRN PRN (Reason: Anxiety) Patient Comments: ANXIETY amlodipine-valsartan [Exforge] 1 TAB tablet 160 mg PO DAILY Patient Comments: HEART/BLOOD PRESSURE cholecalciferol (vitamin D3) [Vitamin D3] 1,000 UNIT capsule 1 cap PO DAILY Patient Comments: PT REPORTS HE TAKES 1 CAPSULE EVERY 3 DAYS VITAMIN Therems-M 1 TABLET tablet 1 tab PO DAILYCM Qty: 30 0RF Patient Comments: VITAMIN melatonin 10 mg capsule 10 mg PO QHS pantoprazole 40 mg tablet,delayed release (DR/EC) 40 mg PO DAILY acetaminophen 500 mg capsule 1,000 mg PO Q8H PRN PRN (Reason: pain) tamsulosin 0.4 mg Capsule 0.4 mg PO QHS sertraline 50 mg tablet 50 mg PO DAILY ondansetron HCl 4 mg tablet 4 mg PO Q6H PRN (Reason: nausea and vomiting) tamsulosin [Flomax] 0.4 mg capsule 0.4 mg PO QHS sulfamethoxazole-trimethoprim [Bactrim DS] 800-160 mg tablet 1 tab PO BID 14 Days Qty: 28 0RF Rx Instructions: Continue Bactrim for 2 weeks postoperatively from orthopedic standpoint. finasteride 5 mg Tablet 5 mg PO DAILY Qty: 30 2RF Referrals / Follow Up: Rachele Pratt NP-C [Primary Care Provider] - Asya Rogers PA [Med Staff - Adv Practice Prof] - 06/20/24 1:15 pm Disposition Disposition (needs filled in before D/C Order can be placed): [facility] Facility
[2024-06-06 09:51] LABS: Hematocrit 32.8 % (40-54); Hemoglobin 11.2 g/dL (13.0-16.5); Mean Corp Hgb Conc 34.1 g/dL (32-36); Mean Corpuscular Volume 93.7 fL (80-94); Mean Platelet Vol. 9.7 fl (6.2-12.0); Platelet Count 198 K/mm3 (150-450); RBC Distribution Width CV 12.7 % (11.6-14.6); RBC Distribution Width SD 43.3 fl (35.1-43.9); White Blood Count 10.2 K/mm3 (4.4-11.0)
--- NOTE | 2024-06-06 10:06 | PCM.DC.SUM ---
Providers Date of Admission: 06/04/24 Date of Discharge: 06/06/24 Primary Care Physician: ANGELICA Hairston Consultations 06/04/24 14:28 Consult: Hospitalist Routine Consulting Provider: Wagner Crandall Reason for Consult: post op med management EMERGENT Consult: No MD Notified: Yes Date Notified: 06/04/24 Time Notified: 17:03 Method of Notification: Text Reason For Visit: PREOP ANTERIOR LT FRANCY Diagnosis Discharge Diagnosis (1) Arthritis: Status: Chronic Code(s): M19.90 - Unspecified osteoarthritis, unspecified site Medications at Discharge Home Medications amlodipine 10 mg-valsartan 160 mg tablet (Exforge) 160 mg PO DAILY 07/01/14 cholecalciferol (vitamin D3) 25 mcg (1,000 unit) capsule (Vitamin D3) 1 cap PO DAILY 07/01/14 lorazepam 1 mg tablet 1 mg PO DAILY PRN PRN Anxiety 07/01/14 multivitamin,ci-azoh-lqccwknr 27 mg-0.4 mg tablet (Therems-M) 1 tab PO DAILYCM #30 TABLETS 07/03/14 finasteride 5 mg tablet 5 mg PO DAILY #30 tabs 04/12/24 acetaminophen 500 mg capsule 1,000 mg PO Q8H PRN PRN pain 05/28/24 melatonin 10 mg capsule 10 mg PO QHS 05/28/24 pantoprazole 40 mg tablet,delayed release 40 mg PO DAILY 05/28/24 tamsulosin 0.4 mg capsule 0.4 mg PO QHS 05/28/24 ondansetron HCl 4 mg tablet 4 mg PO Q6H PRN nausea and vomiting 06/04/24 sertraline 50 mg tablet 50 mg PO DAILY 06/04/24 tamsulosin 0.4 mg capsule (Flomax) 0.4 mg PO QHS 06/04/24 aspirin 81 mg capsule 81 mg PO BID 30 days #60 caps 06/06/24 meloxicam 7.5 mg tablet 7.5 mg PO BID 30 days #60 tabs 06/06/24 oxycodone 5 mg tablet 5 - 10 mg (1 - 2 x 5 mg) PO Q4H PRN PRN as needed for pain 5 days #42 tabs 06/06/24 sennosides 8.6 mg-docusate sodium 50 mg tablet (Stool Softener-Stimulant Laxative) 2 tab PO BID #0 tabs 06/06/24 sulfamethoxazole 800 mg-trimethoprim 160 mg tablet (Bactrim DS) 1 tab PO BID 14 days #28 tabs 06/06/24 Hospital Course Operations total hip replacement (Direct anterior left total hip arthroplasty June 04, 2024) Summary of Care Provided Hospital Course: Patient is a 74-year-old male who has had ongoing left hip pain for several years. He did have a previous fall in 2023 in which she did sustain a T12 compression fracture which he underwent kyphoplasty. Patient was cleared by back specialist and primary care provider. Patient has remained in the nursing home facility for postoperative recovery from the kyphoplasty for strengthening. Patient continued to have ongoing left hip pain in which she failed conservative measures. After failing conservative measures, the patient opted to proceed with a direct anterior left total hip arthroplasty. The patient underwent the above-stated procedure on June 04, 2024. Patient did receive perioperative antibiotics. Intraoperatively was uneventful. For details please see dictated operative note. The patient was placed in thigh-high teds, bilateral SCDs, remained stable in recovery. Patient was admitted to the 3rd floor at [facility]. The patient's pain was managed with the use of IV and p.o. pain medications. Patient participated in physical therapy. Patient was discharged on postoperative day # 2 to nursing home facility at the [facility]. Patient initially postoperatively on day 1 needed a straight cath. He does have enlarged prostate and currently takes tamsulosin and finasteride. Patient was able to to begin urinating on his own. He did well with physical therapy in the hospital postoperatively in which recommended nursing home facility. Patient denies past history of DVT or pulmonary embolism. He is currently on aspirin 81 mg twice daily for 4 weeks postoperatively for DVT prophylaxis. Patient will continue with Tylenol, meloxicam, oxycodone for pain regimen postoperatively. He will continue with the RAHEL hose for 2 weeks postoperatively and is allowed to take off the RAHEL hose at nighttime and for shower. Must place the RAHEL hose back on during the day. Postoperative Mepilex dressing will remain on for 5 days postoperatively with removal on June 09, 2024. He is allowed to get the dressing wet upon discharge. Once dressing has been removed he is only to place gentle soap and water over the incision and is allowed to shower. Avoid any topical ointments for 6 weeks postoperatively. No submerging underwater for 6 weeks postoperatively. Patient was given medications stated below. Patient will follow up with [facility] per postop instructions for reassessment. Postoperative follow-up June 20, 2024 with Asya Rogers PA-C at 1:15 PM. Weight / BMI Weight Weight: 80 kg Body Mass Index (BMI) 25.2 ABG / Lab / Microbiology Data 06/06/24 09:43 06/05/24 06:06 Laboratory: Laboratory Results - last 24 hr 06/06/24 09:43: WBC 10.2, RBC 3.50 L, Hgb 11.2 L, Hct 32.8 L, MCV 93.7, MCH 32.0, MCHC 34.1, RDW Std Deviation 43.3, RDW Coeff of Jay 12.7, Plt Count 198, MPV 9.7 Microbiology: Microbiology 05/30/24 07:36 Swab (Method) Nasal Screen MRSA/MSSA - Final Radiography Diagnostic Testing: Radiology Impression Hip/Pelvis X-Ray 06/04/24 12:00 IMPRESSION: Fluoroscopy during left hip arthroplasty. Electronically Signed: Jeffrey Hicks MD at 10:21 EDT , D/C Instructions Discharge Diet: No restrictions May shower in (days): 1 (only if incision is dry and without drainage. Do NOT soak/submerge in tub/pool/qiu/stream/hot tub.)) Ice area for (Minutes): 20 (Every 1-2 hours while awake[address] place barrier between ice and skin.) Weight Bearing Status: Weight bearing as tolerated (With walker) Keep extremity elevated above heart level: Operative Extremity Call your doctor if your incision/area has: Continuous Slow Oozing, Sudden Increased Bleeding, Increased Pain/ Swelling, Increased Redness and Foul Smelling Discharge Call your doctor if you observe: Fever of 101 or Higher, Shortness of breath, Chest pain, Calf discomfort and Uncontrolled pain Additional Dressing/Incision Instructions: Follow [facility] Post-op Instructions. Once postoperative dressing has been removed, only use gentle soap and water over the incision. Do not use any ointments, Neosporin, salves, alcohol pads over the incision for 6 weeks postoperatively. Do not submerge underwater for 6 weeks postoperatively. Continue with RAHEL hose/elastic stockings for 2 weeks postoperatively. May remove at nighttime but needs to be placed back on the leg during the day. Do NOT use alcohol with narcotic pain medication. Do NOT make important decisions while taking narcotic medication. If you have problems with taking your medication (rash, itching, nausea, etc.) call the office at once. Meaningful Use Info Meaningful Use Meaningful Use Diagnoses (Choose all that apply): None applicable Ischemic Stroke Statin Dosing Therapy Reference: STATIN DOSE THERAPY REFERENCE: * Patients > 75 years receive moderate or high dose statin therapy. * Patients 75 years or YOUNGER should receive HIGH intensity statin dose unless contraindicated. You will be required to document reason for non-treatment if statin daily dose does not meet guidelines. HIGH DOSE STATIN THERAPY DAILY Atorvastatin > than or = to 40 mg Rosuvastatin > than or = to 20 mg Amlodipine + Atorvastatin > than or = to 2.5/40 mg Ezetimibe + Simvastatin 10/80 mg Simvastatin 80mg Discharge Plan Admission Admit Date/Time: 06/04/24 14:28 Attending Provider: Kamron Barger Primary Care Provider: Rachele Pratt Consulting Providers: Wagner Crandall; Lul Villar Discharge Orders/Prescriptions Prescriptions: New aspirin 81 mg capsule 81 mg PO BID 30 Days Qty: 60 0RF Rx Instructions: Take 81 mg aspirin twice daily for 4 weeks postoperatively for DVT prophylaxis. Patient denies past history of DVT or pulmonary embolism. meloxicam 7.5 mg Tablet 7.5 mg PO BID 30 Days Qty: 60 0RF oxycodone 5 mg Tablet 5 - 10 mg PO Q4H PRN PRN (Reason: as needed for pain) 5 Days Qty: 42 0RF sennosides-docusate sodium [Stool Softener-Stimulant Laxat] 8.6-50 mg Tablet 2 tab PO BID Qty: 0 0RF Rx Instructions: Only use as needed if postoperative constipation Continued lorazepam 1 MG tablet 1 mg PO DAILY PRN PRN (Reason: Anxiety) Patient Comments: ANXIETY amlodipine-valsartan [Exforge] 1 TAB tablet 160 mg PO DAILY Patient Comments: HEART/BLOOD PRESSURE cholecalciferol (vitamin D3) [Vitamin D3] 1,000 UNIT capsule 1 cap PO DAILY Patient Comments: PT REPORTS HE TAKES 1 CAPSULE EVERY 3 DAYS VITAMIN Therems-M 1 TABLET tablet 1 tab PO DAILYCM Qty: 30 0RF Patient Comments: VITAMIN melatonin 10 mg capsule 10 mg PO QHS pantoprazole 40 mg tablet,delayed release (DR/EC) 40 mg PO DAILY acetaminophen 500 mg capsule 1,000 mg PO Q8H PRN PRN (Reason: pain) tamsulosin 0.4 mg Capsule 0.4 mg PO QHS sertraline 50 mg tablet 50 mg PO DAILY ondansetron HCl 4 mg tablet 4 mg PO Q6H PRN (Reason: nausea and vomiting) tamsulosin [Flomax] 0.4 mg capsule 0.4 mg PO QHS sulfamethoxazole-trimethoprim [Bactrim DS] 800-160 mg tablet 1 tab PO BID 14 Days Qty: 28 0RF Rx Instructions: Continue Bactrim for 2 weeks postoperatively from orthopedic standpoint. finasteride 5 mg Tablet 5 mg PO DAILY Qty: 30 2RF Referrals / Follow Up: Rachele Pratt NP-C [Primary Care Provider] - Asya Rogers PA [Med Staff - Adv Practice Prof] - 06/20/24 1:15 pm Disposition Disposition (needs filled in before D/C Order can be placed): Long Term Facility
--- NOTE | 2024-06-06 10:24 | PHA.DC.MR.R ---
Pharmacy [place] Med Reconciliation Pharmacy Service has performed discharge medication reconciliation for this patient. The patient's discharge medication list was reviewed for discrepancies and discrepancies were resolved. Medications at Discharge Home Medications amlodipine 10 mg-valsartan 160 mg tablet (Exforge) 160 mg PO DAILY 07/01/14 cholecalciferol (vitamin D3) 25 mcg (1,000 unit) capsule (Vitamin D3) 1 cap PO DAILY 07/01/14 lorazepam 1 mg tablet 1 mg PO DAILY PRN PRN Anxiety 07/01/14 multivitamin,lt-coxu-bwnaftdg 27 mg-0.4 mg tablet (Therems-M) 1 tab PO DAILYCM #30 TABLETS 07/03/14 finasteride 5 mg tablet 5 mg PO DAILY #30 tabs 04/12/24 acetaminophen 500 mg capsule 1,000 mg PO Q8H PRN PRN pain 05/28/24 melatonin 10 mg capsule 10 mg PO QHS 05/28/24 pantoprazole 40 mg tablet,delayed release 40 mg PO DAILY 05/28/24 tamsulosin 0.4 mg capsule 0.4 mg PO QHS 05/28/24 ondansetron HCl 4 mg tablet 4 mg PO Q6H PRN nausea and vomiting 06/04/24 sertraline 50 mg tablet 50 mg PO DAILY 06/04/24 aspirin 81 mg capsule 81 mg PO BID 30 days #60 caps 06/06/24 meloxicam 7.5 mg tablet 7.5 mg PO BID 30 days #60 tabs 06/06/24 oxycodone 5 mg tablet 5 - 10 mg (1 - 2 x 5 mg) PO Q4H PRN PRN as needed for pain 5 days #42 tabs 06/06/24 sennosides 8.6 mg-docusate sodium 50 mg tablet (Stool Softener-Stimulant Laxative) 2 tab PO BID #0 tabs 06/06/24 sulfamethoxazole 800 mg-trimethoprim 160 mg tablet (Bactrim DS) 1 tab PO BID 14 days #28 tabs 06/06/24
--- NOTE | 2024-06-06 10:38 | CASEMGMT ---
Social Work- Physician updated and pt is ready for discharge today.? Discharge orders to [facility] sent via [facility].? Transportation declined by pt/pt ; [facility] is going to transport at 11:30.? SW met with pt and they are agreeable to discharge plan as stated above.?Pt to notify nurse. Bedside nurse notified of discharge time. Disposition:?[facility], skilled level of care under convalescent stay. BASIA Sanford
--- NOTE | 2024-06-06 11:25 | NURSING ---
report called and given to Hui at [facility]
== END 2024-06-06 11:35 | disposition skilled nursing facility (03) ==
LOC: SDC 14:46 → MS3 14:46
PROVIDERS: Anesthesiology; Physician Assistant Surgical; Admitting Provider Specialist; PCP Nurse Practitioner Family; Referring Provider Specialist; Visit Provider Internal Medicine
PROC: (CPT 27284; principal; 2024-06-04 12:35)
DX: M16.12 Unilateral primary osteoarthritis, left hip (principal); J43.9 Emphysema, unspecified; T83.511A Infection and inflammatory reaction due to indwelling urethral catheter, initial encounter; F41.9 Anxiety disorder, unspecified; Z87.891 Personal history of nicotine dependence; I10 Essential (primary) hypertension; R73.9 Hyperglycemia, unspecified; K21.9 Gastro-esophageal reflux disease without esophagitis; Z79.890 Hormone replacement therapy; N39.0 Urinary tract infection, site not specified; N40.1 Benign prostatic hyperplasia with lower urinary tract symptoms; N13.8 Other obstructive and reflux uropathy; G89.29 Other chronic pain; F32.A Depression, unspecified; D63.8 Anemia in other chronic diseases classified elsewhere; K70.0 Alcoholic fatty liver; K58.9 Irritable bowel syndrome, unspecified
CPT/HCPCS: 27130; 01214; 36415; 73501; 73502; 76000; 80048; 80076; 82040; 82962; 83036; 83735; 84484; 85027; 87077; 87081; 88307; 88311; 93005; 94668; 96365; 96366; 96375; 97110; 97116; 97162; 97166; 97535; 99221; 99252; C1776; J7120; A4216; G0378; G0463; J3475

== ENCOUNTER → 2024-07-31 | Outpatient (CLI) | payer MEDICARE, OTHER, SELFPAY ==
--- NOTE | 2024-07-31 15:43 | MRI_ITS ---
STUDY: MRI CERVICAL SPINE WITHOUT CONTRAST REASON FOR EXAM: Male, 74 years old. myelomalacia TECHNIQUE: Standardized fat and water weighted pulse sequences were obtained in the sagittal and axial planes. COMPARISON: None FINDINGS: Normal foramen magnum and brainstem-cervical cord junction. Normal craniovertebral junction. Normal anterior atlantoaxial articulation. Normal odontoid process. There is straightening of the normal cervical lordosis. Normal vertebral bodies and posterior osseous elements. C2-3: Normal endplates. Normal disc height, signal and morphology. Normal central canal and intervertebral neural foramina. C3-4: Moderate left facet hypertrophy. 2 mm of anterolisthesis of C3 on C4 with no spinal stenosis or neural foraminal stenosis. C4-5: Mild broad disc osteophyte complex produces mild spinal stenosis and mild right neural foraminal stenosis. C5-6: Mild broad disc osteophyte complex results in mild spinal stenosis and mild bilateral neural foraminal stenosis. C6-7: 2 mm of anterolisthesis of C6 on C7 with a mild broad disc osteophyte complex results in mild spinal stenosis and mild bilateral neural foraminal stenosis. C7-T1: Normal endplates. Normal disc height, signal and morphology. Normal central canal and intervertebral neural foramina. Normal cervical cord. Normal visualized soft tissue structures. MRI/Spine Cervical (Routine) IMPRESSION: Multilevel degenerative changes, as described above. Electronically Signed: Jeffrey Hicks MD at 13:29 EDT ,
== END | disposition home or self-care (01) ==
LOC: MRI 15:29
PROVIDERS: PCP Nurse Practitioner Family; Referring Provider Orthopaedic Surgery; Visit Provider Orthopaedic Surgery
DX: G95.89 Other specified diseases of spinal cord (principal)
CPT/HCPCS: 72141

== ENCOUNTER 2025-07-17 14:47 | Inpatient (IN) | payer MEDICARE, OTHER, SELFPAY ==
[2025-07-17] VITALS (7 sets, daily range): BP systolic 117–150; BP diastolic 69–84; PULSE 63–86; RESP 16–23; TEMP 36.6–36.7; O2SAT 89–95; BMI 26.8
--- NOTE | 2025-07-17 15:08 | EKG12_ITS ---
Test Reason : Blood Pressure : */* mmHG Vent. Rate : 64 BPM Atrial Rate : 64 BPM P-R Int : 128 ms QRS Dur : 142 ms QT Int : 444 ms P-R-T Axes : * -13 6 degrees QTcB Int : 458 ms Normal sinus rhythm Right bundle branch block Abnormal ECG Confirmed by LADONNA ALBARADO, PALMA ([id number]), website/blog editor ANGIE MIRANDA ([id number]) on 07/18/2025 1:34:27 PM Referred By: Confirmed By: PALMA DOUGHERTY MD
--- NOTE | 2025-07-17 15:08 | RAD_ITS ---
PROCEDURE: HIP, UNI W/ PELVIS 2-3 VIEWS 07/17/2025 REASON FOR EXAM: FALL TECHNIQUE: HIP, UNI W/ PELVIS 2-3 VIEWS Laterality: Right COMPARISON: Pelvic x-ray 04/07/2024. FINDINGS: Bones: Acute angulated subcapital right femoral neck fracture. The femoral shaft is superiorly migrated by 1 cm. Joints: No dislocation of the right hip joint. Status post total left hip replacement. Soft tissues: No soft tissue abnormalities. Other: RAD/HIP, UNI W/ Pelvis 2-3 Views IMPRESSION: Acute angulated subcapital right femoral neck fracture. The femoral shaft is superiorly migrated by 1 cm. Reading Location: [id number]
--- NOTE | 2025-07-17 15:10 | EDS_ITS ---
HPI HPI - Fall History of Present Illness Chief Complaint: Fall Detail of Chief Complaint: Fall with right hip pain Informant: patient Narrative Narrative: Patient presents to the emergency department after a fall. He presents via EMS from home. He was coming back in through the door and does not think he lifted his leg up high enough causing him to lose his balance and fall onto his right hip. He denies striking his head. Denies loss of consciousness. Denies neck pain. Unable to bear weight afterwards. Patient had his left hip replaced last year. He is not anticoagulated. Denies chest or abdomen pain. EMS gave patient fentanyl. [facility] Medical History (Updated 07/17/25 @ 16:[address] Linwood Walters, DO) Lives in halfway Essential tremor Depression Anxiety Arthritis Indwelling urethral catheter present Fatty liver Back pain Restless legs Dietary restriction History of hiatal hernia History of IBS Gastric reflux Former smoker History of pain when walking History of stress test Unilateral primary osteoarthritis, left hip Tremors of nervous system Gait instability Other intervertebral disc degeneration, lumbar region Low back pain T12 compression fracture Myelopathy Osteoarthritis of left hip Frequent falls Complicated UTI (urinary tract infection) Intractable low back pain Godinez catheter present Weakness HTN (hypertension) Home Medications ?Medication ?Instructions ?Recorded ?Last Taken ?Type amlodipine 10 mg-valsartan 160 mg 160 mg PO DAILY /06/04/24 History tablet (Exforge) cholecalciferol (vitamin D3) 25 1 cap PO DAILY 4 Unknown History mcg (1,000 unit) capsule (Vitamin D3) lorazepam 1 mg tablet 1 mg PO DAILY PRN PRN Anxiet y 07/01/14 04/01/24 History multivitamin,[id number] 27 1 tab PO DAILYCM #30 TABLETS 07/03/14 Unknown Rx mg-0.4 mg tablet (Therems-M) finasteride 5 mg tablet 5 mg PO DAILY #30 tabs 04/12 Unknown Rx acetaminophen 500 mg capsule 1,000 mg PO Q8H PRN PRN p ain 05/28/24 Unknown History melatonin 10 mg capsule 10 mg PO QHS 05/28/24 Unknow n History pantoprazole 40 mg tablet,delayed 40 mg PO DAILY 05/28 Unknown History release tamsulosin 0.4 mg capsule 0.4 mg PO QHS 05/28/24 Unkno wn History ondansetron HCl 4 mg tablet 4 mg PO Q6H PRN nausea and vomiting 06/04/24 Unknown History sertraline 50 mg tablet 50 mg PO DAILY 06/04/24 Unkn own History aspirin 81 mg capsule 81 mg PO BID 30 days #60 cap s 06/06/24 Unknown Rx meloxicam 7.5 mg tablet 7.5 mg PO BID 30 days #60 ta bs 06/06/24 Unknown Rx oxycodone 5 mg tablet 5 - 10 mg (1 - 2 x 5 mg) PO Q4H 06/06/24 Unknown Rx PRN PRN as needed for pain 5 days #42 tabs sennosides 8.6 mg-docusate sodium 2 tab PO BID #0 tabs 06/06/24 Unknown Rx 50 mg tablet (Stool Softener-Stimulant Laxative) sulfamethoxazole 800 1 tab PO BID 14 days #28 tab s 06/06/24 06/04/24 Rx mg-trimethoprim 160 mg tablet (Bactrim DS) Allergy/AdvReac Type Severity Reaction Status Date / Time No Known Allergies Allergy Verified 07/17/25 14:49 Surgical History History of kyphoplasty Social History Smoking Status: Unknown if ever smoked ROS ROS ED Review of Systems ROS Unobtainable: other Constitutional Constitutional ED: Reports lethargy; Denies chills, fever(s), sweats or weight loss Eyes Eyes: Denies blurry vision, change in vision or diplopia ENT ENT ED: Denies rhinorrhea or sore throat Cardiovascular Cardiovascular: Denies chest pain, orthopnea or racing heartbeat Respiratory/Chest Respiratory/Chest: Denies cough, dyspnea, dyspnea on exertion, orthopnea or sputum Gastrointestinal Gastrointestinal: Denies abdominal pain, diarrhea, nausea or vomiting Genitourinary Genitourinary ED: Denies dysuria, hematuria or urinary frequency Musculoskeletal Musculoskeletal: Reports other Details: Right hip pain/injury ; Denies arthralgias, back pain, myalgias or neck pain Integumentary Denies abscess, Abrasions or rash Neurologic Neurologic: Denies headache(s) or weakness Psychiatric Psychiatric: Denies anxiety, depression or suicidal thoughts Endocrine Endocrinology: Denies polydipsia, polyphagia or polyuria Hematologic/Lymphatic Hematologic/Lymphatic: Denies easy bleeding, easy bruising or lymphadenopathy Allergic/Immunologic Allergic/Immunologic ED: Denies mouth swelling, tongue swelling or urticaria EXAM Physical Exam Const Vital Signs: 07/17/25 14:50 07/17/25 14:54 07/17/25 15:27 Temperature 98.1 F Temperature Source Oral Pulse Rate 65 63 Respiratory Rate 18 20 H Respiratory Effort Normal Non-Labored Respiratory Depth Normal Respiratory Pattern Normal Blood Pressure 117/76 130/72 H Blood Pressure Mean 89 91 Pulse Ox 91 89 Oxygen Delivery Method Room Air Room Air Oxygen Flow Rate (L/min) 07/17/25 15:27 Temperature Temperature Source Pulse Rate Respiratory Rate Respiratory Effort Respiratory Depth Respiratory Pattern Blood Pressure Blood Pressure Mean Pulse Ox 92 Oxygen Delivery Method Nasal Cannula Oxygen Flow Rate (L/min) 2 Positive well nourished and well developed General Appearance ED: well developed and NAD HEENT Reports TM's clear and moist mucous membranes normocephalic and atraumatic; Negative for trauma or tenderness Tympanic Membrane ED: Yes TM's clear Eyes PERRL and EOMs intact bilaterally General Eye ED: Negative for pale conjunctiva or scleral icterus Neck no lymphadenopathy, supple and no JVD General: Negative for tenderness Chest Wall inspection of chest normal and palpation of chest normal Chest: Negative for tenderness Resp normal respiratory effort and clear to auscultation bilaterally Effort and Inspection: Negative for respiratory distress or pain with movement Auscultation: Negative for rhonchi, wheezes or diminished lung sounds Cardio regular rate, regular rhythm, S1 normal heart sound, S2 normal heart sound and no murmurs Peripheral Pulses: pulses 2+ throughout GI normal to inspection, nondistended, normoactive bowel sounds, soft to palpation, non-tender, non-distended and no masses Back/Spine no CVA tenderness and no thoracic nor lumbar tenderness Extremity Extremity Narrative: Tenderness to palpation over the right hip. Pain with logrolling. He holds the hip flexed with the knee flexed. Neurovascularly intact distally. No tenderness at the knee. He has superficial abrasion over the anterior aspect of the patella without bony tenderness on exam. General Extremety ED: Negative for edema General Extremity: Negative for edema Neuro oriented x3, CN's II-XII intact bilaterally, no sensory deficits noted and gait normal Sensorium / Orientation: awake, alert, oriented to person, oriented to place and oriented to time Motor Exam: strength 5/5 throughout and strength abnormal Psych mental status grossly normal Skin no rashes or lesions noted and no wounds MDM MDM MDM Narrative Medical decision making narrative: Patient presents after a fall with pain to the right hip. No other evidence of trauma to his head or neck. No trauma to his chest or abdomen. Will medicate with morphine and Zofran for pain. Will obtain labs as well as x-rays of the right hip and pelvis. Will obtain chest x-ray. Will obtain EKG. EKG shows sinus rhythm with ventricular rate of 64 bpm with right bundle branch block. X- rays of the right hip show a right hip capital or subcapital hip fracture. Patient will be discussed with hospitalist as well as orthopedic surgeon on-call for admission. He was medicated with morphine and Zofran and he continued to have pain. He was given a milligram of Dilaudid IV. Lab Data Attestation: I reviewed the patient's lab results. Labs: Laboratory Results - last 24 hr 07/17/25 15:30 WBC 8.6 RBC 4.41 L Hgb 13.2 Hct 38.7 L MCV 87.8 MCH 29.9 MCHC 34.1 RDW Std Deviation 41.9 RDW Coeff of Jay 13.0 Plt Count 248 MPV 9.8 Immature Gran % (Auto) 1.300 H Neut % (Auto) 76.4 H Lymph % (Auto) 14.7 L [place] % (Auto) 5.3 Eos % (Auto) 1.8 Baso % (Auto) 0.5 Absolute Neuts (auto) 6.6 Absolute Lymphs (auto) 1.26 Nucleated RBC % 0 Sodium 140 Potassium 3.9 Chloride 107 Carbon Dioxide 21.2 Anion Gap 12 BUN 21 H Creatinine 0.70 Estim Creat Clear Calc 83.65 Est GFR (MDRD) Non-Af 97 BUN/Creatinine Ratio 29.1 H Glucose 158 H Calcium 8.8 Radiography Diagnostic Testing: Clinical Impression(s) from Imaging Studies Hip/Pelvis X-Ray 07/17/25 15:08 IMPRESSION: Acute angulated subcapital right femoral neck fracture. The femoral shaft is superiorly migrated by 1 cm. Reading Location: [facility] Chest X-Ray 07/17/25 15:35 IMPRESSION: No acute cardiopulmonary process. Reading Location: [id number] Three-view x-rays of the right hip and pelvis obtained interpreted by myself as right subcapital hip fracture. Radiology agreement. 1 view chest x-ray obtained interpreted by myself as no evidence of infiltrate or pneumothorax or acute disease process. Radiology in agreement. EKG Initial EKG: Attestation: I personally reviewed and interpreted this EKG as follows: Comments: Sinus rhythm with ventricular rate of 64 bpm with right bundle branch block Discharge Plan Triage Chief Complaint: Fall ED Provider: Linwood Walters Dx/Rx/DC Orders Clinical Impression: Fall, Closed fracture of right hip Prescriptions: No Action lorazepam 1 MG tablet 1 mg PO DAILY PRN PRN (Reason: Anxiety) Patient Comments: ANXIETY amlodipine-valsartan [Exforge] 1 TAB tablet 160 mg PO DAILY Patient Comments: HEART/BLOOD PRESSURE cholecalciferol (vitamin D3) [Vitamin D3] 1,000 UNIT capsule 1 cap PO DAILY Patient Comments: PT REPORTS HE TAKES 1 CAPSULE EVERY 3 DAYS VITAMIN Therems-M 1 TABLET tablet 1 tab PO DAILYCM Qty: 30 0RF Patient Comments: VITAMIN melatonin 10 mg capsule 10 mg PO QHS pantoprazole 40 mg tablet,delayed release (DR/EC) 40 mg PO DAILY acetaminophen 500 mg capsule 1,000 mg PO Q8H PRN PRN (Reason: pain) tamsulosin 0.4 mg Capsule 0.4 mg PO QHS sertraline 50 mg tablet 50 mg PO DAILY ondansetron HCl 4 mg tablet 4 mg PO Q6H PRN (Reason: nausea and vomiting) aspirin 81 mg capsule 81 mg PO BID 30 Days Qty: 60 0RF Rx Instructions: Take 81 mg aspirin twice daily for 4 weeks postoperatively for DVT prophylaxis. Patient denies past history of DVT or pulmonary embolism. meloxicam 7.5 mg Tablet 7.5 mg PO BID 30 Days Qty: 60 0RF oxycodone 5 mg Tablet 5 - 10 mg PO Q4H PRN PRN (Reason: as needed for pain) 5 Days Qty: 42 0RF sennosides-docusate sodium [Stool Softener-Stimulant Laxat] 8.6-50 mg Tablet 2 tab PO BID Qty: 0 0RF Rx Instructions: Only use as needed if postoperative constipation sulfamethoxazole-trimethoprim [Bactrim DS] 800-160 mg tablet 1 tab PO BID 14 Days Qty: 28 0RF Rx Instructions: Continue Bactrim for 2 weeks postoperatively from orthopedic standpoint. finasteride 5 mg Tablet 5 mg PO DAILY Qty: 30 2RF Primary Care Provider: Rachele Pratt Referrals: Rachele Pratt, [employer]PERATIONS OPERATOR-C [Primary Care Provider] - Print Language: Russian Disposition Disposition: Acute Care Hospital [facility]
[2025-07-17] MEDS: 0.9% Normal Saline (1000mL) 1,000 ML 150 ML IV (15:23)
--- NOTE | 2025-07-17 15:35 | RAD_ITS ---
PROCEDURE: CHEST 1 VIEW (PORTABLE) 07/17/2025 REASON FOR EXAM: FALL TECHNIQUE: Frontal view of the chest. COMPARISON: May 30, 2024 FINDINGS: Hardware: EKG leads are present. Heart: Cardiac enlargement. Aorta is tortuous. Lungs: Clear. Bones: Degenerative changes are identified within the thoracic spine. RAD/Chest 1 View (Portable) IMPRESSION: No acute cardiopulmonary process. Reading Location: [id number]
[2025-07-17 15:50] LABS: Hematocrit 38.7 % (40-54); Hemoglobin 13.2 g/dL (13.0-16.5); Immature Granulocytes Count 0.110 X10^3/uL (0.0-0.0); Mean Corp Hgb Conc 34.1 g/dL (32-36); Mean Corpuscular Volume 87.8 fL (80-94); Mean Platelet Vol. 9.8 fl (6.2-12.0); NRBC Flagged by Analyzer 0 % (0-5); Platelet Count 248 K/mm3 (150-450); RBC Distribution Width CV 13.0 % (11.6-14.6); RBC Distribution Width SD 41.9 fl (35.1-43.9); Red Blood Count 4.41 M/mm3 (4.6-6.2); White Blood Count 8.6 K/mm3 (4.4-11.0)
[2025-07-17 16:01] LABS: Anion Gap 12 (5-15); BUN 21 mg/dL (4-19); BUN/Creat Ratio 29.1 RATIO (10-20); Calcium,Total 8.8 mg/dL (7.6-11.0); Carbon Dioxide 21.2 mmol/L (21.0-32.0); Chloride 107 mmol/L (98-108); Estimated Creatinine Clearance 83.65 ml/min (50-250); Glucose 158 mg/dL (70-99); Potassium 3.9 mmol/L (3.3-5.1)
--- NOTE | 2025-07-17 16:13 | PCM.HP.STD ---
HPI - General General Date of Admission: 07/17/25 Date of Service: 07/17/25 Chief Complaint: Fall with right hip pain HPI Narrative WILBERT MCWILLIAMS, is a 75 M who presented to [facility] ED on 07/17/2025 with right hip pain after a fall at home. Patient lives at home with his . History is significant for left hip OA s/p total left hip replacement in 05/2024, chronic debility, hypertension, anxiety/depression, and BPH with obstructive symptoms. Patient required a 3-month stay at the [facility] after his left hip replacement last year. Today he suffered a mechanical fall when walking and through the door of his house. Thinks he did not lift his foot up high enough and tripped. He fell onto his right side and had severe right hip pain with this and was unable to get himself up, so EMS brought him to the ED. Hip/pelvis x-ray showed an acute angulated subcapital right femoral neck fracture. Patient was having significant pain and required doses of IV morphine and then Dilaudid with some improvement in pain. Vitals were otherwise stable and lab workup was unremarkable. Hospitalist was then contacted for admission. I saw the patient at bedside in the ED, was present. Patient was laying back in bed and reported minimal hip pain at rest, but he does have significant pain with any movement. He otherwise is mentating appropriately and denies any other acute concerns currently. Will be admitted for further management. [facility] Medical History (Updated 07/17/25 @ 16:[address] Linwood Walters, ) Lives in custodial Essential tremor Depression Anxiety Arthritis Indwelling urethral catheter present Fatty liver Back pain Restless legs Dietary restriction History of hiatal hernia History of IBS Gastric reflux Former smoker History of pain when walking History of stress test Unilateral primary osteoarthritis, left hip Tremors of nervous system Gait instability Other intervertebral disc degeneration, lumbar region Low back pain T12 compression fracture Myelopathy Osteoarthritis of left hip Frequent falls Complicated UTI (urinary tract infection) Intractable low back pain Godinez catheter present Weakness HTN (hypertension) Home Medications ?Medication ?Instructions ?Recorded ?Last Taken ?Type amlodipine 10 mg-valsartan 160 mg 160 mg PO DAILY 07/01/14 06/04/24 History tablet (Exforge) cholecalciferol (vitamin D3) 25 1 cap PO DAILY 07/01/14 Unknown History mcg (1,000 unit) capsule (Vitamin D3) lorazepam 1 mg tablet 1 mg PO DAILY PRN PRN Anxiety 07/01/14 04/01/24 History multivitamin,[id number] 27 1 tab PO DAILYCM #30 TABLETS 07/03/14 Unknown Rx mg-0.4 mg tablet (Therems-M) finasteride 5 mg tablet 5 mg PO DAILY #30 tabs 04/12/24 Unknown Rx acetaminophen 500 mg capsule 1,000 mg PO Q8H PRN PRN pain 05/28/24 Unknown History melatonin 10 mg capsule 10 mg PO QHS 05/28/24 Unknown History pantoprazole 40 mg tablet,delayed 40 mg PO DAILY 05/28/24 Unknown History release tamsulosin 0.4 mg capsule 0.4 mg PO QHS 05/28/24 Unknown History ondansetron HCl 4 mg tablet 4 mg PO Q6H PRN nausea and vomiting 06/04/24 Unknown History sertraline 50 mg tablet 50 mg PO DAILY 06/04/24 Unknown History aspirin 81 mg capsule 81 mg PO BID 30 days #60 caps 06/06/24 Unknown Rx meloxicam 7.5 mg tablet 7.5 mg PO BID 30 days #60 tabs 06/06/24 Unknown Rx oxycodone 5 mg tablet 5 - 10 mg (1 - 2 x 5 mg) PO Q4H 06/06/24 Unknown Rx PRN PRN as needed for pain 5 days #42 tabs sennosides 8.6 mg-docusate sodium 2 tab PO BID #0 tabs 06/06/24 Unknown Rx 50 mg tablet (Stool Softener-Stimulant Laxative) sulfamethoxazole 800 1 tab PO BID 14 days #28 tabs 06/06/24 06/04/24 Rx mg-trimethoprim 160 mg tablet (Bactrim DS) Allergy/AdvReac Type Severity Reaction Status Date / Time No Known Allergies Allergy Verified 07/17/25 14:49 Surgical History History of kyphoplasty Social History Smoking Status: Unknown if ever smoked ROS Constitutional Constitutional: Denies chills, fatigue or fever(s) Cardiovascular Cardiovascular: Denies chest pain Respiratory/Chest Respiratory/Chest: Denies shortness of breath at rest Gastrointestinal Gastrointestinal: Denies abdominal pain Musculoskeletal Musculoskeletal: Reports joint pain Neurologic Neurologic: Denies dizziness, headache(s), numbness or tingling Vital Signs Vital Signs Vital Signs: 07/17/25 14:50 07/17/25 14:54 07/17/25 15:27 Temperature 98.1 F Temperature Source Oral Pulse Rate 65 63 Respiratory Rate 18 20 H Respiratory Effort Normal Non-Labored Respiratory Depth Normal Respiratory Pattern Normal Blood Pressure 117/76 130/72 H Blood Pressure Mean 89 91 Pulse Ox 91 89 Oxygen Delivery Method Room Air Room Air Oxygen Flow Rate (L/min) 07/17/25 15:27 Temperature Temperature Source Pulse Rate Respiratory Rate Respiratory Effort Respiratory Depth Respiratory Pattern Blood Pressure Blood Pressure Mean Pulse Ox 92 Oxygen Delivery Method Nasal Cannula Oxygen Flow Rate (L/min) 2 Weight Weight: 84.867 kg Body Mass Index (BMI) 26.8 Physical Exam Const alert, oriented x3, no apparent distress and average body habitus Constitutional Narrative: Elderly male, somewhat chronically ill-appearing, alert and oriented x 3, mildly fatigued appearing but otherwise laying back fairly comfortably in bed, conversing normally, in no acute distress. General Appearance: cooperative and comfortable HEENT normocephalic, head/scalp atraumatic, hearing grossly normal bilaterally, nasal mucous membranes and turbinates normal and moist oral mucous membranes Eyes PERRL, EOMs intact bilaterally and conjunctivae normal Neck full ROM Chest inspection of chest normal Resp normal respiratory effort, normal air movement, no use of accessory muscles and clear to auscultation bilaterally Cardio regular rate, regular rhythm, no murmurs and peripheral pulses 2+ throughout GI normal to inspection, nondistended, normoactive bowel sounds, soft to palpation, non-tender and non-distended Back/Spine normal ROM Extremity Extremity Narrative: Mild tenderness to palpation over right hip. He is holding the hip flexed and knee flexed to minimize pain. Skin no rashes or lesions noted Psych mental status grossly normal Results Lab / Micro Data 07/17/25 15:30 07/17/25 15:30 Labs: Laboratory Results - last 24 hr 07/17/25 15:30: WBC 8.6, RBC 4.41 L, Hgb 13.2, Hct 38.7 L, MCV 87.8, MCH 29.9, MCHC 34.1, RDW Std Deviation 41.9, RDW Coeff of Jay 13.0, Plt Count 248, MPV 9.8, Immature Gran % (Auto) 1.300 H, Neut % (Auto) 76.4 H, Lymph % (Auto) 14.7 L, [place] % (Auto) 5.3, Eos % (Auto) 1.8, Baso % (Auto) 0.5, Absolute Neuts (auto) 6.6, Absolute Lymphs (auto) 1.26, Nucleated RBC % 0, Sodium 140, Potassium 3.9, Chloride 107, Carbon Dioxide 21.2, Anion Gap 12, BUN 21 H, Creatinine 0.70, Estim Creat Clear Calc 83.65, Est GFR (MDRD) Non-Af 97, BUN/Creatinine Ratio 29.1 H, Glucose 158 H, Calcium 8.8 Imaging Radiology Impression Hip/Pelvis X-Ray 07/17/25 15:08 IMPRESSION: Acute angulated subcapital right femoral neck fracture. The femoral shaft is superiorly migrated by 1 cm. Reading Location: [id number] Chest X-Ray 07/17/25 15:35 IMPRESSION: No acute cardiopulmonary process. Reading Location: [id number] Assessment & Plan Assessment/Plan (1) Closed fracture of right hip: PLAN: Plan Patient is a 75-year-old male who presented to [facility] ED on 07/17/2025 with right hip pain after a fall at home. 1. Right femoral neck fracture after mechanical fall, acute on chronic debility ? Admit under inpatient status to [facility]. Orthopedic surgery consulted. PT/OT/case management consulted. Hip x-ray showed acute angulated subcapital right femoral neck fracture. Preoperative evaluation as below. Will keep n.p.o. at midnight for presumed procedure tomorrow. Pain control with scheduled Tylenol, p.o. oxycodone as needed and IV Dilaudid as needed. Will keep SCDs in place for DVT prophylaxis for now and defer postoperative DVT prophylaxis to orthopedics. Patient require 3-month stay at the [facility] last year after his left hip replacement, did have a good experience there. Suspect he will need SNF placement again on this discharge. 2. Preoperative evaluation ? NSQIP score: Patient has below average risk for any complication or serious complication given risk factors of age, mild systemic disease and hypertension. ? Labs/imaging: Hemoglobin 13.0, creatinine 0.7; both stable at baseline. Chest x-ray with clear lung goldstein and no concerning findings. Patient hemodynamically stable on room air at rest. No further labs/imaging required preoperatively. Follow-up CBC and BMP postoperatively. ? Cardiac eval: EKG with normal sinus rhythm and no ischemic changes on admit. Last echo in 05/2024 with EF 60%, stage I diastolic dysfunction, no valve disease, no other concerning findings. Chest x-ray clear as above, no concern for acute heart failure. No further cardiac workup needed preoperatively. ? Medications: Home medication reconciliation is pending, but if medications are stable from prior, will hold home amlodipine and valsartan on day of procedure with plan to restart on postop day 1 if BP is stable. Okay to continue other home medications as normal. ? Prior procedural complications: None. ? Recommendation: Patient is medically optimized for procedure. Chronic medical conditions: ? Hypertension: Holding home amlodipine?valsartan for now as above. ? BPH with obstructive symptoms: Continue home finasteride and Flomax. ? Anxiety/depression: Continue home sertraline and Ativan twice daily as needed. ? History of left total hip replacement ? GERD: Continue home PPI. ? History of alcohol abuse: Reports no alcohol use at this time. Encouraged continued abstinence. ? Former tobacco use: Encouraged continued cessation. DVT prophylaxis: SCDs CODE STATUS: DNR CCA, DNI. Patient is okay for short-term intubation for procedure. Expected disposition: Likely SNF, TBD Total clinical time spent by myself addressing the patient's medical issues, reviewing all the data, and collaborating with patient's care team: 75 minutes. Charges/Coding Visit Charges Inpatient E&M: 62449 Init Hosp L3
[2025-07-17 17:01] LABS: Prothrombin Time (Protime)PT. 13.6 SECONDS (11.7-14.9)
[2025-07-17 17:02] LABS: Partial Thromboplast Time 26.3 Seconds (24.1-36.2)
[2025-07-17 17:06] LABS: AST(SGOT) 17 U/L (<=37); Alanine Aminotransfer ALT/SGPT 14 U/L (<=46); Albumin, Serum 4.1 g/dL (3.4-4.8); Alkaline Phosphatase 100 U/L (40-129); Bilirubin, Direct 0.26 mg/dL (0.00-0.30); Globulin 2.8 g/dL (2.2-4.2)
[2025-07-18] VITALS (15 sets, daily range): BP systolic 108–149; BP diastolic 68–89; PULSE 75–108; RESP 14–16; TEMP 36.3–37.4; O2SAT 92–98; BMI 26.8
[2025-07-18] MEDS: 0.9% Saline Lock 10 ML Syringe IV ×3 (06:08→21:03)
[2025-07-18] MEDS: HYDROmorphone 0.5 MG/0.5 ML SYRINGE IV ×3 (06:09→12:01)
[2025-07-18 06:55] LABS: Hematocrit 38.0 % (40-54); Hemoglobin 12.8 g/dL (13.0-16.5); Mean Corp Hgb Conc 33.7 g/dL (32-36); Mean Corpuscular Volume 87.4 fL (80-94); Mean Platelet Vol. 9.7 fl (6.2-12.0); Platelet Count 223 K/mm3 (150-450); RBC Distribution Width CV 12.9 % (11.6-14.6); RBC Distribution Width SD 40.6 fl (35.1-43.9); Red Blood Count 4.35 M/mm3 (4.6-6.2); White Blood Count 10.6 K/mm3 (4.4-11.0)
[2025-07-18 07:19] LABS: Anion Gap 12 (5-15); BUN 15 mg/dL (4-19); BUN/Creat Ratio 23.9 RATIO (10-20); Calcium,Total 8.4 mg/dL (7.6-11.0); Carbon Dioxide 22.1 mmol/L (21.0-32.0); Chloride 105 mmol/L (98-108); Estimated Creatinine Clearance 83.65 ml/min (50-250); Glucose 152 mg/dL (70-99); Potassium 3.5 mmol/L (3.3-5.1)
--- NOTE | 2025-07-18 11:15 | PN_ITS ---
Subjective Subjective Patient seen and examined. He had no active complaints. Pain in right hip is fairly well controlled. He is due for surgery to fix the broken right hip today. review of systems is otherwise negative. Objective Data Objective Data Vital Signs: Vital Signs Temp Pulse Resp BP Pulse Ox O2 Del Method O2 Flow Rate 97.9 F 77 16 142/76 H 94 Nasal Cannula 3 07/18/25 08:52 07/18/25 08:52 07/18/25 08:52 07/18/25 08:52 07/18/25 08:52 07/18/25 09:00 07/18/25 09:00 Oxygen Flow Rate (L/min) 3 Oxygen Delivery Method Nasal Cannula Weight: 187 lb Body Mass Index (BMI) 26.8 Intake & Output: Intake and Output for Last 24 Hours 07/16/25 07/17/25 07/18/25 23:59 23:59 23:59 Intake Total 400 / 400 Output Total 0 / 800 1025 / 1025 Balance 400 / -400 -1025 / -1025 Lab / Micro Data 07/18/25 06:30 07/18/25 06:30 Labs: Laboratory Results - last 24 hr 07/17/25 15:30: WBC 8.6, RBC 4.41 L, Hgb 13.2, Hct 38.7 L, MCV 87.8, MCH 29.9, MCHC 34.1, RDW Std Deviation 41.9, RDW Coeff of Jay 13.0, Plt Count 248, MPV 9.8, Immature Gran % (Auto) 1.300 H, Neut % (Auto) 76.4 H, Lymph % (Auto) 14.7 L , Roberts % (Auto) 5.3, Eos % (Auto) 1.8, Baso % (Auto) 0.5, Absolute Neuts (auto) 6.6, Absolute Lymphs (auto) 1.26, Nucleated RBC % 0, Sodium 140, Potassium 3.9, Chloride 107, Carbon Dioxide 21.2, Anion Gap 12, BUN 21 H, Creatinine 0.70, Estim Creat Clear Calc 83.65, Est GFR (MDRD) Non-Af 97, BUN/Creatinine Ratio 29.1 H, Glucose 158 H, Calcium 8.8 07/17/25 16:30: PT 13.6, INR 1.0, APTT 26.3, Hemoglobin A1c 5.7, Total Bilirubin 0.55, Direct Bilirubin 0.26, AST 17, ALT 14, Alkaline Phosphatase 100, Total Protein 6.9, Albumin 4.1, Globulin 2.8 07/18/25 06:30: WBC 10.6, RBC 4.35 L, Hgb 12.8 L, Hct 38.0 L, MCV 87.4, MCH 29.4, MCHC 33.7, RDW Std Deviation 40.6, RDW Coeff of Jay 12.9, Plt Count 223, MPV 9.7, Sodium 139, Potassium 3.5, Chloride 105, Carbon Dioxide 22.1, Anion Gap 12, BUN 15, Creatinine 0.65 L, Estim Creat Clear Calc 83.65, Est GFR (MDRD) Non- Af 99, BUN/Creatinine Ratio 23.9 H, Glucose 152 H, Calcium 8.4, Blood Type O POSITIVE, Antibody Screen NEGATIVE Radiography Diagnostic Testing: Radiology Impression Hip/Pelvis X-Ray 07/17/25 15:08 IMPRESSION: Acute angulated subcapital right femoral neck fracture. The femoral shaft is superiorly migrated by 1 cm. Reading Location: [facility] Chest X-Ray 07/17/25 15:35 IMPRESSION: No acute cardiopulmonary process. Reading Location: [facility] Physical Exam Const alert, oriented x3, no apparent distress and well nourished General Appearance: cooperative and well developed HEENT normocephalic, head/scalp atraumatic, moist oral mucous membranes and oropharynx normal Eyes PERRL and EOMs intact bilaterally Neck no lymphadenopathy and supple Lymph Lymphatic: no lymphedema noted Resp normal respiratory effort, normal air movement and clear to auscultation bilaterally Cardio regular rate, regular rhythm, S1 normal heart sound, S2 normal heart sound and no murmurs GI normal to inspection, nondistended, normoactive bowel sounds, soft to palpation and non-tender Extremity Extremity Narrative: RLE shortened and externally rotated. Skin General Skin Exam: no breakdown Neuro CN's II-XII intact bilaterally, no focal motor deficits, no sensory deficits noted and deep tendon reflexes 2+ bilaterally Motor Exam: general weakness Psych thought process normal, cooperative and affect normal Appearance: appropriate Assessment & Plan Assessment/Plan (1) Closed fracture of right hip: (2) Fall: PLAN: Plan #Right hip fracture due to mechanical fall * patient sustained a mechanical fall when walking through the door of his house * imaging done showed acute angulated subcapital right femoral neck fracture * orthopedic surgery on board. * for surgery today. On PO tylenol, PO oxycodone and IV morphine prn for pain * fall precautions * #Hypertension: on amlodipine and valsartan which were held on admission as he is going for surgery today. #BPH with obstructive symptoms: on finasteride and flomax #Anxiety and depression: on sertraline and ativan #GERD: on PPI DVT prophylaxis; SCDs. Will defer to Orthopedics about DVT prophylaxis after surgery Charges/Coding Visit Charges Inpatient E&M: 57263 Subs Hosp L2
--- NOTE | 2025-07-18 11:25 | CASEMGMT ---
MANGO TRACY Assessment: RN ROSSANA to room for initial transition planning/care coordination assessment. MANGO TRACY introduced self and role at [facility], pt voices understanding and consents to assessment. Pt lying in bed in no distress. @ beside. Pt is A&O and answers all questions appropriately at this time. Care providers, pharmacy, and demographics verified/updated. Strata: 2 PCP: Rachele Pratt, ROD GREASER Specialists: Dr Villar, Patience, Dr Rey, Dr Ledezma Preferred Pharmacy: [facility] Insurance: Medicare, [facility] Prescription Benefit: yes LNOK: Amina - Living Arrangements: Pt lives with in a two story home with 3 steps to enter with handrails. Bedroom and full bathroom on 2nd floor. 1/2 bath on main floor. Pt able to navigate the stairs @ baseline. Independent w/ADL's. manages pt's medications and does home mgnt tasks. Transportation: DME: Pt has a WW, grab bars, tub bench, O2 @ 3 L/M @ HS through [facility]. He has a rollator available, but does not use. requested Medical alert info and this was provided at this time. [facility] Discussed discharge planning. Pt would like to go to SNF @ discharge. Pt and provided w/SNF list that was prepared by fabio Cardenas plant attendant or assistant operator. Pt chose [facility] as [facility] 1[facility] preference. Pt and made aware to also provide 2 more preferences in case [facility] not able to accept him. Plan: SN[facility] RN, CM
--- NOTE | 2025-07-18 12:01 | CASEMGMT ---
Discharge Planning A list of?SNF providers including quality and resource use data and consistent with the patient's preferred geographic region, medical needs, and insurance network was created in [employer] Guide.? This list was provided to the RN ROSSANA. Theresa Hernandez, Discharge Planning Asst.
[2025-07-18] MEDS: Lactated Ringers 1,000 ML 15 ML IV (13:17)
--- NOTE | 2025-07-18 13:40 | FEM._PTH ---
PATIENT: WILBERT MCWILLIAMS LOC: [facility] U#:[id number] AGE/SX: 75/M ROOM: [facility] [place] RE07/17/[address]: Dr. Celeste Lion MD : 1950 BED: 1 DIS: 07/20/2025 SPEC #: [id number] RECD: 07/18/25 16:48 STATUS: DEVIN POST #: [id number] CANDELARIA: 07/18/25 13:[address]: Lul Villar DEPT: SURGICAL PATHOLOGY RECD BY: Kenneth Grigsby ENTERED: 07/19/25 09:53 SP TYPE: FEM HEAD OTHR DR: DO Dr. Celeste Copeland MD Carolyn Graham, VENEER SHEET REPAIRER-C Tissues: A - Hip, NOS Procedures: Decalcification bone/plaque Surgery Specimen Level III HEADER OPERATION: Right total hip replacement PRE-OP DIAGNOSIS: Fall with right hip pain TISSUE SUBMITTED: A- Femoral head MICROSCOPIC DIAGNOSIS A. Right femoral head, total hip arthroplasty: - Articular bone with reactive/degenerative changes. - Predominantly fatty marrow with focal trilineage hematopoiesis. MICROSCOPIC DESCRIPTION Slides are reviewed. GROSS DESCRIPTION A. Received in formalin labeled with the patient's name and date of . Designated as RT femoral head is a 4.9 x 4.8 x 4.4 cm ovoid femoral head with a somewhat shaggy and congested resection margin and a 2.1 x 1.4 cm attached fragment of femoral neck. The articular cartilage is esquivel to red and granular with focal peripheral osteophyte formation; no eburnation is grossly identified. Sectioning reveals esquivel-yellow, focally erythematous medullary bone with focal hemorrhage and friability near the resection margin. Clay Grinder sections are submitted in 2 cassettes, following decalcification. AR 07/19/2025 CPT:01582,31712
--- NOTE | 2025-07-18 13:44 | PRE.ANES_ITS ---
ASA Classification* ASA Classification ASA Classification: 3 Assessment & Plan Anesthesia* Anesthesia Assessment Anesthesia Assessment: Discussed sedation and/or anesthesia options, risks, benefits, and alternatives with patient/parents/legal guardian/POA. Questions invited. The patient/parents/legal guardian/POA seems to understand and agrees to proceed with anesthesia plan. Reviewed the physical assessment, medical history, allergy history and patient home medications list prior to surgery/procedure/anesthetic and documented any changes. Performed airway and anesthesia risk assessments. Anesthesia Type Anesthesia Type: General and Block (Discussed fascia iliaca block in postop. Surgeon okayed procedure.) History Source History Obtained from:: Patient and Chart Anesthesia Focused Assessment* Temperature: 98.1 F Pulse Rate: 81 Blood Pressure: 144/83 Respiratory Rate: 16 Pulse Ox: 96 Oxygen Delivery Method: Nasal Cannula Oxygen Flow Rate (L/min): 3 Airway Assessment Mouth opens: >3 cm Mallampati Score: II Teeth Condition: Intact Neck Range of motion (ROM): Limited ROM Labs Anesthesia Preop lab: CBC WBC 10.6 K/mm3 (4.4-11.0) 07/18/25 06:30 07/18/25 RBC 4.35 M/mm3 (4.6-6.2) L 07/18/25 06:30 07/18/25 Hgb 12.8 g/dL (13.0-16.5) L 07/18/25 06:30 5 Hct 38.0 % (40-54) L 07/18/25 06:30 07/18/25 Plt Count 223 K/mm3 (150-450) 07/18/25 06:30 07/18/25 CHEMISTRY Potassium 3.5 mmol/L (3.3-5.1) 07/18/25 06:30 07/18/25 Sodium 139 mmol/L (133-145) 07/18/25 06:30 07/18/25 Magnesium 2.1 mg/dL (1.6-2.6) 05/30/24 07:36 05/30/24 Phosphorus 3.5 mg/dL (2.5-4.9) 07/01/14 06:35 07/01/14 BUN 15 mg/dL (4-19) 07/18/25 06:30 07/18/25 Creatinine 0.65 mg/dL (0.70-1.20) L 07/18/25 06:30 Glucose 152 mg/dL (70-99) H 07/18/25 06:30 07/18/25 POC Glucose 103 mg/dL (74-106) 06/04/24 11:28 06/04/24 TSH 0.49 uIU/mL (0.358-3.74) 03/08/19 14:32 COAG PT 13.6 SECONDS (11.7-14.9) 07/17/25 16:30 Pre-Assessment Diagnosis/Proposed Procedure Planned Operative Procedure(s): total hip arthroplasty Anesthesia History 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 When Was Last Pacemaker Check QUESTION #4 FULL TEXT: You/Your Family Experience fever (hyperthermia) with Anesthesia Last Oral Intake Last Oral intake: Last Oral Intake NPO since 00:00 07/18/25 12:05 Meds taken in AM with sips of water? Meds patient instructed to take am of surgery PONV PONV - career resource technician: PONV - career resource technician Female HX of Motion Sickness HX of N/V After Surgery Non-Smoker Duration of Surgery greater than 60 minutes Number of Risk Factors PONV Score Height & Weight Height & Weight: Anesthesia: Height & Weight Height 5 ft 10 in 07/18/25 12:05 Weight: 84.822 kg 07/18/25 12:05 Body Mass Index (BMI) 26.8 07/18/25 12:05 Respiratory Assessment Respiratory Assessment - career resource technician: Respiratory Tract Infection Hx - career resource technician Hx Respiratory Tract Infection No 07/18/25 06:03 STOP Sleep Apnea STOP Sleep Apnea - career resource technician: STOP Sleep Apnea - career resource technician Hx Hypertension Yes 07/17/25 17:17 Hx Sleep Apnea No 07/17/25 17:17 CPAP No 06/04/24 14:56 BIPAP No 04/07/24 17:56 Do you snore loudly (louder No 07/17/25 17:17 than talking or can be heard Do you often feel tired/ Yes 07/17/25 17:17 fatigued/ sleepy during daytime? Has anyone observed you stop No 07/17/25 17:17 breathing during sleep? STOP Results Positive 07/17/25 17:17 QUESTION #5 FULL TEXT : Do you snore loudly (louder than talking or can be heard through closed doors)? 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 Specify any problems Hx of Preganancy in last 3 N/A 07/17/25 17:17 Months Nurse Filling Out Transfusion FSTEINER 07/17/25 17:17 & Questions: Date: 07/17/25 07/17/25 17:17 Time: 17:18 07/17/25 17:17 Patient unable to answer at this time (ie. confused, unrespo /Reproduction History /Reproductive History - career resource technician: /Reproductive Hx- career resource technician Hx Now No 07/18/25 06:03 Gestational Age (in weeks): EDC: Hx Hx Para Hx Section SAB No 07/18/25 06:03 Active Medications Active Medications: Current Medications Generic Name Dose Route Start Last Admin Trade Name Freq PRN Reason Stop Dose Admin Acetaminophen 1,000 mg 07/17/25 22:00 07/18/25 05:44 Acetaminophen 500 Mg Tablet PO Not Given Q8 ROMAN Al Hydroxide/Mg Hydroxide 15 ml 07/17/25 23:52 07/18/25 00:25 Mag Hydrox/Al Hydrox/Simeth 30 Ml Udc PO 15 ml Q4H PRN PRN Administration DYSPEPSIA/INDIGESTION Finasteride 5 mg 07/18/25 10:00 07/18/25 10:13 Finasteride 5 Mg Tablet PO Not Given DAILY ROMAN Hydromorphone HCl 0.5 mg 07/17/25 17:27 07/18/25 12:01 Hydromorphone 0.5 Mg/0.5 Ml Syringe IV 0.5 mg Q3H PRN PRN Administration Pain Score 6-10 Sodium Chloride 250 mls @ 15 mls/hr 07/17/25 17:22 IV .[id number] PRN Saline Flush Sodium Chloride 250 mls @ 15 mls/hr 07/17/25 17:22 IV .[id number] PRN Additional IVPB Infusion Lactated Ringer's 1,000 mls @ 15 mls/hr 07/18/25 13:15 07/18/25 13:17 IV 15 mls/hr .Q48H ROMAN Administration Lorazepam 0.5 mg 07/17/25 18:07 07/17/25 20:07 Lorazepam 0.5 Mg Tablet PO 0.5 mg Q12H PRN PRN Administration Anxiety Melatonin 3 mg 07/17/25 17:27 Melatonin 3 Mg Tablet PO QHS PRN PRN INSOMNIA Melatonin 10 mg 07/17/25 18:07 Melatonin 10 Mg Tablet PO QHS PRN SLEEP Ondansetron HCl 4 mg 07/17/25 17:27 07/18/25 06:14 Ondansetron 4 Mg/2 Ml Vial IV 4 mg Q8H PRN PRN Administration NAUSEA/VOMITING Oxycodone HCl 5 mg 07/17/25 17:27 07/18/25 00:00 Oxycodone 5 Mg Tablet PO 5 mg Q4H PRN PRN Administration Pain Score 4-10 Pantoprazole Sodium 40 mg 07/18/25 10:00 07/18/25 10:13 Pantoprazole Sodium 40 Mg Tablet PO Not Given DAILY ROMAN Senna/Docusate Sodium 1 tablet 07/17/25 22:00 Senna/Docusate Sodium 1 Tablet PO BID PRN Constipation Sertraline HCl 100 mg 07/18/25 10:00 07/18/25 10:13 Sertraline 100 Mg Tablet PO Not Given DAILY ROMAN Sodium Chloride 10 - 40 ml 07/17/25 18:06 07/18/25 06:14 0.9% Saline Lock 10 Ml Syringe IV 10 ml UD PRN Administration SALINE FLUSH Tamsulosin HCl 0.4 mg 07/17/25 22:00 07/17/25 20:07 Tamsulosin Hcl 0.4 Mg Capsule PO 0.4 mg QHS ROMAN Administration PFSH Medical History (Updated 07/17/25 @ 16:[address] Linwood Walters, DO) [facility] Essential tremor Depression Anxiety Arthritis Indwelling urethral catheter present Fatty liver Back pain Restless legs Dietary restriction History of hiatal hernia History of IBS Gastric reflux Former smoker History of pain when walking History of stress test Unilateral primary osteoarthritis, left hip Tremors of nervous system Gait instability Other intervertebral disc degeneration, lumbar region Low back pain T12 compression fracture Myelopathy Osteoarthritis of left hip Frequent falls Complicated UTI (urinary tract infection) Intractable low back pain Godinez catheter present Weakness HTN (hypertension) Home Medications ?Medication ?Instructions ?Recorded ?Last Taken ?Type amlodipine 10 mg-valsartan 160 mg 160 mg PO DAILY HEAR T 07/01/14 06/04/24 History tablet (Exforge) multivitamin,ng-ezob-fkwtivuk 27 1 tab PO DAILYCM #30 TABLETS 07/03/14 Unknown Rx mg-0.4 mg tablet (Therems-M) finasteride 5 mg tablet 5 mg PO DAILY #30 tabs 04/12 Unknown Rx acetaminophen 500 mg capsule 1,000 mg PO Q8H PRN PRN p ain 05/28/24 Unknown History melatonin 10 mg capsule 10 mg PO QHS SLEEP 05/28/24 Unknown History pantoprazole 40 mg tablet,delayed 40 mg PO DAILY GERD 05/28/24 Unknown History release tamsulosin 0.4 mg capsule 0.4 mg PO QHS BPH 05/28/24 U nknown History sertraline 50 mg tablet 100 mg PO DAILY DEPRESSION 0 06/04/24 Unknown History meloxicam 7.5 mg tablet 7.5 mg PO BID 30 days #60 ta bs 06/06/24 Unknown Rx hydroxyzine HCl 25 mg tablet 25 - 50 mg PO QHS PRN PRN anxiety 07/17/25 Unknown History Allergy/AdvReac Type Severity Reaction Status Date / Time No Known Allergies Allergy Verified 07/17/25 14:49 Surgical History History of kyphoplasty Social History Smoking Status: Unknown if ever smoked Review of Systems (Anesthesia) ROS Narrative System reviewed and no additional complaints, except as documented.
--- NOTE | 2025-07-18 13:46 | CONS.ORTHO ---
HPI Consult Data Date of Consult: 07/18/25 HPI Narrative Reason for Consultation: Right hip pain HPI Narrative: WILBERT MCWILLIAMS, is a 75 M who presents with right hip pain after a fall yesterday. Patient had a left total replacement by myself roughly 1 year ago. He was recently in for his 1 year visit. He was minimally using a cane only around his house for balance. He had presented the office no cane or walker. His baseline function is significantly improved after his left shoulder replacement. However, yesterday he fell while navigating his home walking to the doorway. Patient had severe pain in his right hip and groin region. Is worse with motion better with immobilization. Patient denies numbness tingling radiating down his leg. His is at bedside with him. He is unable to ambulate at this time. [facility] Medical History Lives in senior care Essential tremor Depression Anxiety Arthritis Indwelling urethral catheter present Fatty liver Back pain Restless legs Dietary restriction History of hiatal hernia History of IBS Gastric reflux Former smoker History of pain when walking History of stress test Unilateral primary osteoarthritis, left hip Tremors of nervous system Gait instability Other intervertebral disc degeneration, lumbar region Low back pain T12 compression fracture Myelopathy Osteoarthritis of left hip Frequent falls Complicated UTI (urinary tract infection) Intractable low back pain Godinez catheter present Weakness HTN (hypertension) Home Medications ?Medication ?Instructions ?Recorded ?Last Taken ?Type amlodipine 10 mg-valsartan 160 mg 160 mg PO DAILY HEART 07/01/14 06/04/24 History tablet (Exforge) multivitamin,ul-[id number] 27 1 tab PO DAILYCM #30 TABLETS 07/03/14 Unknown Rx mg-0.4 mg tablet (Therems-M) finasteride 5 mg tablet 5 mg PO DAILY #30 tabs 04/12/24 Unknown Rx acetaminophen 500 mg capsule 1,000 mg PO Q8H PRN PRN pain 05/28/24 Unknown History melatonin 10 mg capsule 10 mg PO QHS SLEEP 05/28/24 Unknown History pantoprazole 40 mg tablet,delayed 40 mg PO DAILY GERD 05/28/24 Unknown History release tamsulosin 0.4 mg capsule 0.4 mg PO QHS BPH 05/28/24 Unknown History sertraline 50 mg tablet 100 mg PO DAILY DEPRESSION 06/04/24 Unknown History meloxicam 7.5 mg tablet 7.5 mg PO BID 30 days #60 tabs 06/06/24 Unknown Rx hydroxyzine HCl 25 mg tablet 25 - 50 mg PO QHS PRN PRN anxiety 07/17/25 Unknown History Allergy/AdvReac Type Severity Reaction Status Date / Time No Known Allergies Allergy Verified 07/17/25 14:49 Surgical History (Updated 07/18/25 @ 13:[address] Lul Villar MD) History of total left hip replacement History of kyphoplasty Social History Smoking Status: Unknown if ever smoked ROS ROS Narrative 14 point review of systems outside of what is mentioned in the HPI is negative. Patient does have indwelling catheter Constitutional Constitutional: Reports systems reviewed and no addt'l complaints, except as documented Vital Signs Vital Signs Vital Signs: 07/17/25 14:50 07/17/25 14:54 07/17/25 15:27 Temperature 98.1 F Temperature Source Oral Pulse Rate 65 63 Pulse Strength Respiratory Rate 18 20 H Respiratory Effort Normal Non-Labored Respiratory Depth Normal Respiratory Pattern Normal Blood Pressure 117/76 130/72 H Blood Pressure Mean 89 91 Blood Pressure Source Blood Pressure Position Blood Pressure Location Pulse Ox 91 89 Oxygen Delivery Method Room Air Room Air Oxygen Flow Rate (L/min) 07/17/25 15:27 07/17/25 16:24 07/17/25 17:30 Temperature 98.1 F Temperature Source Pulse Rate 85 80 Pulse Strength Respiratory Rate 23 H Respiratory Effort Normal Respiratory Depth Normal Respiratory Pattern Normal Blood Pressure 150/84 H Blood Pressure Mean 106 Blood Pressure Source Blood Pressure Position Blood Pressure Location Pulse Ox 92 92 Oxygen Delivery Method Nasal Cannula Nasal Cannula Oxygen Flow Rate (L/min) 2 2 07/17/25 18:08 07/17/25 19:53 07/17/25 19:55 Temperature 98.1 F 97.9 F Temperature Source Oral Oral Pulse Rate 83 86 Pulse Strength Respiratory Rate 16 16 Respiratory Effort Normal Non-Labored Respiratory Depth Respiratory Pattern Blood Pressure 142/79 H 136/69 H Blood Pressure Mean 100 91 Blood Pressure Source Monitor Monitor Blood Pressure Position Semi-Fowlers Semi-Fowlers Blood Pressure Location Left Arm Left Arm Pulse Ox 95 95 Oxygen Delivery Method Nasal Cannula Nasal Cannula Nasal Cannula Oxygen Flow Rate (L/min) 95 3 3 07/17/25 20:50 07/17/25 22:15 07/18/25 00:00 Temperature 98.2 F Temperature Source Oral Pulse Rate 78 Pulse Strength Normal (2+) Respiratory Rate 16 Respiratory Effort Respiratory Depth Respiratory Pattern Blood Pressure 144/72 H Blood Pressure Mean 96 Blood Pressure Source Monitor Blood Pressure Position Semi-Fowlers Blood Pressure Location Left Arm Pulse Ox 92 95 Oxygen Delivery Method Nasal Cannula Room Air Oxygen Flow Rate (L/min) 2 07/18/25 00:00 07/18/25 06:00 07/18/25 06:00 Temperature 98.4 F Temperature Source Oral Pulse Rate 80 Pulse Strength Respiratory Rate 16 Respiratory Effort Normal Non-Labored Normal Non-Labored Respiratory Depth Respiratory Pattern Blood Pressure 144/78 H Blood Pressure Mean 100 Blood Pressure Source Monitor Blood Pressure Position Semi-Fowlers Blood Pressure Location Left Arm Pulse Ox 98 Oxygen Delivery Method Nasal Cannula Nasal Cannula Oxygen Flow Rate (L/min) 3 3 07/18/25 06:44 07/18/25 08:52 07/18/25 09:00 Temperature 97.9 F Temperature Source Oral Pulse Rate 77 Pulse Strength Respiratory Rate 16 Respiratory Effort Normal Non-Labored Respiratory Depth Normal Respiratory Pattern Normal Blood Pressure 142/76 H Blood Pressure Mean 98 Blood Pressure Source Monitor Blood Pressure Position Semi-Fowlers Blood Pressure Location Left Arm Pulse Ox 93 94 Oxygen Delivery Method Nasal Cannula Nasal Cannula Nasal Cannula Oxygen Flow Rate (L/min) 2 2 3 07/18/25 12:05 07/18/25 13:45 Temperature 98.1 F 98.1 F Temperature Source Oral Pulse Rate 81 81 Pulse Strength Respiratory Rate 16 16 Respiratory Effort Respiratory Depth Respiratory Pattern Blood Pressure 144/83 H 144/83 H Blood Pressure Mean 103 Blood Pressure Source Monitor Blood Pressure Position Semi-Fowlers Blood Pressure Location Left Arm Pulse Ox 96 96 Oxygen Delivery Method Nasal Cannula Nasal Cannula Oxygen Flow Rate (L/min) 3 3 Weight Weight: 187 lb Body Mass Index (BMI) 26.8 Physical Exam Const alert and oriented x3 General Appearance: cooperative HEENT normocephalic Eyes PERRL Neck no JVD Resp normal respiratory effort Cardio Cardio Narrative: Regular pulse rate distal GI non-distended Extremity Extremity Narrative: Right lower extremity: Dressing is clean dry and intact Sensations intact to light touch saphenous, sural, superficial peroneal, deep peroneal, and tibial distributions Motors intact EHL, DF, PF calves are soft and supple Skin Skin Narrative: Right thigh skin is intact Neuro CN's II-XII intact bilaterally Psych affect normal Medical Records Data Attestation: I reviewed the patient's medical records Lab / Micro Data 07/18/25 06:30 07/18/25 06:30 Labs: Laboratory Results - last 24 hr 07/17/25 15:30: WBC 8.6, RBC 4.41 L, Hgb 13.2, Hct 38.7 L, MCV 87.8, MCH 29.9, MCHC 34.1, RDW Std Deviation 41.9, RDW Coeff of Jay 13.0, Plt Count 248, MPV 9.8, Immature Gran % (Auto) 1.300 H, Neut % (Auto) 76.4 H, Lymph % (Auto) 14.7 L, Whitley % (Auto) 5.3, Eos % (Auto) 1.8, Baso % (Auto) 0.5, Absolute Neuts (auto) 6.6, Absolute Lymphs (auto) 1.26, Nucleated RBC % 0, Sodium 140, Potassium 3.9, Chloride 107, Carbon Dioxide 21.2, Anion Gap 12, BUN 21 H, Creatinine 0.70, Estim Creat Clear Calc 83.65, Est GFR (MDRD) Non-Af 97, BUN/Creatinine Ratio 29.1 H, Glucose 158 H, Calcium 8.8 07/17/25 16:30: PT 13.6, INR 1.0, APTT 26.3, Hemoglobin A1c 5.7, Total Bilirubin 0.55, Direct Bilirubin 0.26, AST 17, ALT 14, Alkaline Phosphatase 100, Total Protein 6.9, Albumin 4.1, Globulin 2.8 07/18/25 06:30: WBC 10.6, RBC 4.35 L, Hgb 12.8 L, Hct 38.0 L, MCV 87.4, MCH 29.4, MCHC 33.7, RDW Std Deviation 40.6, RDW Coeff of Jay 12.9, Plt Count 223, MPV 9.7, Sodium 139, Potassium 3.5, Chloride 105, Carbon Dioxide 22.1, Anion Gap 12, BUN 15, Creatinine 0.65 L, Estim Creat Clear Calc 83.65, Est GFR (MDRD) Non-Af 99, BUN/Creatinine Ratio 23.9 H, Glucose 152 H, Calcium 8.4, Blood Type O POSITIVE, Antibody Screen NEGATIVE Imaging Radiology Impression Hip/Pelvis X-Ray 07/17/25 15:08 IMPRESSION: Acute angulated subcapital right femoral neck fracture. The femoral shaft is superiorly migrated by 1 cm. Reading Location: [id number] Images independently reviewed. Agree patient has displaced subcapital right femoral neck fracture Chest X-Ray 07/17/25 15:35 IMPRESSION: No acute cardiopulmonary process. Reading Location: [id number] Assessment & Plan Assessment/Plan (1) Closed fracture of right hip: PLAN: Natural history of the disease process and treatment options were discussed the patient. Patient's was also bedside for the entirety of the encounter. Treatment options clued nonoperative treatment which was not recommended, close reduction percutaneous pinning with was not recommended and hemiarthroplasty versus total hip replacement. Patient recently had total replacement and did very well with it on the contralateral side and did wish to proceed with total replacement on the right side as well. We did discuss increased risk of dislocation with total replacement in comparison to hemiarthroplasty in the face of fracture. Distally we discussed risk of the procedure in general to include but are not limited to about blood loss, DVTs, PEs, neuro vascular damage, infection, the general risk of anesthesia including loss of life as well as instability, leg length discrepancies and fractures associated with the surgery. Patient demonstrated understanding, again his is at bedside all parties agree with surgical decision making wish to proceed. Antibiotics on-call to the operating room. Patient has been optimized by medicine service for surgery.
[2025-07-18] MEDS: TXA 1000mg in NS100 100ml (IVPB at Closure) 660 MG IV (14:00)
[2025-07-18] MEDS: Cefazolin 1 GM/5 ML Vial 2 GM IV (14:11)
[2025-07-18] MEDS: Lidocaine 1% (5 ml sdv) 5 ML Vial 4 ML IV (14:16)
--- NOTE | 2025-07-18 15:00 | RAD_ITS ---
PROCEDURE: HIP MIN 2 VIEWS (PORTABLE) 07/18/2025 REASON FOR EXAM: RIGHT HIP TECHNIQUE: HIP MIN 2 VIEWS (PORTABLE) Laterality: FINDINGS: Intraoperative fluoroscopy of the right hip was performed. 5.3 seconds of fluoroscopic time. 0.67 mGy. RAD/Hip Min 2 Views (Portable) IMPRESSION: As above. Reading Location: [id number]
[2025-07-18] MEDS: fentaNYL 100 MCG/2 ML Ampul IV (15:03)
[2025-07-18] MEDS: JPS (Morphine 10mg/ml) OPERA.SITE (15:07)
[2025-07-18] MEDS: TXA 1000mg in NS100 100ml (IVPB at Incision) 660 MG IV (15:08)
--- NOTE | 2025-07-18 15:18 | OP.PCM_ITS ---
Operative Report (Standard) Operative Information Date of Procedure: 03/25/25 Pre-Operative Diagnosis: Right hip subcapital femoral neck fracture Post-Operative Diagnosis: Right hip subcapital femoral neck fracture Surgery/Procedure Performed: Right direct anterior total replacement associate program manager: Yes Service Station Equipment Mechanic: Daniel Boswell Tasks completed by assistant infant teacher: Other (See body of operative report) Type of Anesthesia: Spinal RN Documented Start/Stop Times: Operation Date: 07/18/25 13:40 Case Time Into Pre-Op 07/18/25 13:02 Out of Pre-Op 07/18/25 14:06 Anesthesia Start 07/18/25 14:11 Into Room 07/18/25 14:11 Procedure Start 07/18/25 14:38 Procedure End 07/18/25 15:49 Anesthesia End 07/18/25 15:56 Out of Room 07/18/25 15:56 Into Recovery 07/18/25 15:58 Out of Recovery 07/18/25 16:47 Procedure Start Time: 14:38 Procedure Stop Time: 15:49 Select all DRAINS/GRAFTS/IMPLANTS that apply: Prosthetic device Prosthetic device details: See body of operative report Special Medications: 2 g Ancef, 1 g TXA at incision, 1 g TXA closure, 10 mg Decadron, joint cocktail (5 mg Duramorph, 30 mL of 0.5% Ropivicaine, 1000 units of epinephrine, 30 mg of Toradol) Estimated Blood Loss: 500 mL Fluids Replaced: 1200 mL crystalloid Specimen collected: Yes Description of specimen(s) removed: Bony cuts Description of surgery: Components used: 1. Insignia [place] femoral stem size 6 high offset 2. [place] trident 2 acetabular shell size 56 mm 3. Cami X3 polyethylene F 4. [place] Biolox delta 36mm, -5mm femoral head Brief history operative indications: 75 yo m who sustained a right displaced femoral neck fracture. Total hip replacement was discussed with the patient with risks and benefits including but not limited to blood loss, DVTs, PEs, neurovascular damage, dislocation, general risks of anesthesia including loss of life. Patient demonstrated an understanding medical clearance is obtained the patient was consented for surgery. Procedure: On the date of procedure the patient's R hip was marked in the preoperative area. Patient was then taken back to the operating room where anesthesia assumed control of the C-spine and airway and administered anesthetic. Patient was transferred to the operating table and placed in the supine position. The hips were placed at the break of the bed and a sacral bump was placed. The R lower extremity was then prepped out in a sterile fashion using chlorhexidine while the surgeon scrubbed. The PA was vital in the positioning of the patient. Upon reentering the room the R lower extremity was draped in the standard orthopedic fashion and the incision was marked. A timeout was called and everyone agreed upon the side, the site, the procedure be performed, antibody given, and patient's identity. At this time incision was made through skin, subcutaneous tissue, and fat down to fascia. The fascia was then incised and the TFL was retracted laterally. A retractor was placed on the lateral border of the femoral neck. Attention was directed to the inferior portion of the approach and all crossing vessels were identified and appropriately coagulated. A retractor was then placed on the medial portion of the femoral neck. The anterior capsule was then cleared of all soft tissue and then H shaped capsulo david was made. The retractors were then placed inside the capsule. The femoral neck was identified and a cleanup cut was made. At this time a power corkscrew was used to remove the femoral head. Attention was then turned toward the acetabulum where the soft tissues were appropriately retracted and the acetabulum was sequentially reamed to 56 mm. A 56 mm cup was then selected and impacted into place. Acetabular liner was impacted into place and locking mechanism was verified. The position of the acetabular cup was then verified under live fluoroscopy. Attention was then turned to the femur. Soft tissue releases on the medial and lateral femoral neck were appropriately done, the leg was externally rotated and lateralized. A Castle retractor was placed medially and proximally to the greater trochanter this allowed appropriate visualization and exposure of the femoral canal. Rongeour was then used to remove excess lateral bone. A canal finder and entry broach were used to open the proximal canal. Once we verified we were down the femoral canal we subsequently broached up to a size 6 femur. The appropriate neck was placed in the previously selected head was trialed with a -5 mm neck. Traction was pulled and the hip was reduced with internal rotation. Once it was appropriately reduced and stability was checked. There was minimal shuck, equal leg lengths and appropriate stability with hyperextension and external rotation as well as with 90? flexion and internal rotation. Fluoroscopy was then also used to verify the position of the components and leg lengths using the contralateral side for comparison. The trial components were then dislocated the proximal femur was again exposed and the components were removed from the wound. The final components were ve rified and opened. The wound was copiously irrigated out with normal saline. The acetabulum was checked for any residual debris. The final components were placed and impacted. Traction and internal rotation were again used to reduce the hip. After adequate reduction the hip remained stable with appropriate leg lengths. The final components were once again checked with live fluoroscopy and were found to be satisfactory. The wound was then copiously irrigated with normal saline once more, and hemostasis was obtained. Closure was then done using #1 Vicryl runner to close the fascia. A 2-0 vicryl interuppted sutures were used to close the subcutaneous skin. A 3-0 Monocryl and Steri-Strips were used for final skin closure. A Silverlon dressing was placed. Patient was awakened by anesthesia and [facility] Patient was then transferred to the PACU for recovery. Postoperative plan: Patient will get 24 hours postop antibiotics. Patient will get in-house physical therapy and will be weight-bear as tolerated. Patient will follow up in office in 2 weeks for a wound check and x-rays. Xarelto for DVT prophylaxis due to decreased overall mobility. During the course of the procedure the physician heel shaver (PE) played a vital role. Their intimate knowledge of my steps in the procedure aided in safe and expedient completion of the procedure. The PE played a vital rolls in positioning particularly in obtaining the appropriate positioning of the sacral bump. The PE was also vital in the retraction of soft tissues during the exposure and especially the femoral work as this is a vital part of the procedure to prevent complications and fractures. The PE was also vital and protecting soft tissues during times of bony cuts and reaming. He also played a vital role in closure with my direct supervision. The PE was also important during reduction and dislocation of the joint and trials intraoperatively. Surgical Findings: Stable hip with equal leg lengths Complications Complications: No Admit VTE Documentation VTE Present on Admission: Yes VTE Mechan Device Prophylaxis: SCD's and Thigh High RAHEL Hose VTE Pharm Prophylaxis ordered?: Yes
--- NOTE | 2025-07-18 16:05 | PCM.POST.ANE ---
Anesthesia: Postop Eval I Current Vital Signs Temperature: 99.3 F Pulse Rate: 101 Blood Pressure: 134/89 Respiratory Rate: 16 Pulse Ox: 92 Assessment Airway patent: Yes Spontaneous unlabored respirations: Yes nausea: No Vomiting: No Anesthesia Complication: No Fluid Hydration Crystalloid volume administer (ml): 1,200 Total IV fluid infused: 1,200 Progress Note Anesthesia document: Postop Eval 1 completed: Yes
--- NOTE | 2025-07-18 17:00 | RAD_ITS ---
PROCEDURE: HIP MIN 2 VIEWS (PORTABLE) 07/18/2025 REASON FOR EXAM: FRX TECHNIQUE: HIP MIN 2 VIEWS (PORTABLE) Laterality: FINDINGS: Status post bilateral hip arthroplasties. No evidence of acute complication. RAD/Hip Min 2 Views (Portable) IMPRESSION: Intact bilateral hip arthroplasties. Reading Location: [id number]
[2025-07-18] MEDS: Cefazolin 2 GM in 0.9% Normal Saline (100mL Bag) 100 ML IV (17:15)
[2025-07-18] MEDS: MELATONIN 10 MG TABLET PO (21:02)
[2025-07-18] MEDS: Cefazolin 1 GM/50 ML BAG IV (21:03)
[2025-07-18] MEDS: 0.9% Normal Saline (250mL Bag) 250 ML 15 ML IV (21:03)
[2025-07-19] VITALS (8 sets, daily range): BP systolic 116–126; BP diastolic 68–77; PULSE 66–84; RESP 15–20; TEMP 36.2–37.8; O2SAT 93–98; BMI 26.8
[2025-07-19] MEDS: Cefazolin 1 GM/50 ML BAG IV (05:59)
[2025-07-19 06:42] LABS: Hematocrit 31.8 % (40-54); Hemoglobin 10.8 g/dL (13.0-16.5); Immature Granulocytes Count 0.060 X10^3/uL (0.0-0.0); Mean Corp Hgb Conc 34.0 g/dL (32-36); Mean Corpuscular Volume 88.3 fL (80-94); Mean Platelet Vol. 10.0 fl (6.2-12.0); NRBC Flagged by Analyzer 0 % (0-5); Platelet Count 200 K/mm3 (150-450); RBC Distribution Width CV 12.9 % (11.6-14.6); RBC Distribution Width SD 41.6 fl (35.1-43.9); Red Blood Count 3.60 M/mm3 (4.6-6.2); White Blood Count 11.5 K/mm3 (4.4-11.0)
[2025-07-19 07:33] LABS: Anion Gap 11 (5-15); BUN 18 mg/dL (4-19); BUN/Creat Ratio 28.1 RATIO (10-20); Calcium,Total 8.6 mg/dL (7.6-11.0); Carbon Dioxide 23.5 mmol/L (21.0-32.0); Chloride 105 mmol/L (98-108); Estimated Creatinine Clearance 83.65 ml/min (50-250); Glucose 144 mg/dL (70-99); Potassium 3.9 mmol/L (3.3-5.1)
[2025-07-19] MEDS: 0.9% Saline Lock 10 ML Syringe IV ×3 (07:45→22:08)
--- NOTE | 2025-07-19 10:41 | PN_ITS ---
Subjective Subjective Patient seen and examined with his nurse by his bedside. He is POD 1 for right hip direct anterior total replacement. He has no complaints and pain is well controlled. Review of systems is otherwise negative. His hb is down to 10/8 from ~ 12 yesterday. He does have a low grade fever of 100F this morning. Objective Data Objective Data Vital Signs: Vital Signs Temp Pulse Resp BP Pulse Ox O2 Del Method O2 Flow Rate 100.0 F H 84 18 126/73 H 93 Room Air 3 07/19/25 10:00 07/19/25 10:00 07/19/25 10:00 07/19/25 10:00 07/19/25 10:00 07/19/25 10:00 07/19/25 05:00 Oxygen Flow Rate (L/min) 3 Oxygen Delivery Method Room Air Weight: 187 lb 0.008 oz Body Mass Index (BMI) 26.8 Intake & Output: Intake and Output for Last 24 Hours 07/17/25 07/18/25 07/19/25 23:59 23:59 23:59 Intake Total 400 / 400 2270 / 2270 50 / 50 Output Total 0 / 800 2700 / 2700 400 / 400 Balance 400 / -400 -430 / -430 -350 / -350 Lab / Micro Data 07/19/25 05:58 07/19/25 05:58 Labs: Laboratory Results - last 24 hr 07/19/25 05:58: WBC 11.5 H, RBC 3.60 L, Hgb 10.8 L, Hct 31.8 L, MCV 88.3, MCH 30.0, MCHC 34.0, RDW Std Deviation 41.6, RDW Coeff of Jay 12.9, Plt Count 200, MPV 10.0, Immature Gran % (Auto) 0.500, Neut % (Auto) 88.9 H, Lymph % (Auto) 5.3 L, Gooding % (Auto) 5.1, Eos % (Auto) 0.1, Baso % (Auto) 0.1, Absolute Neuts (auto) 10.2 H, Absolute Lymphs (auto) 0.61 L, Nucleated RBC % 0, Sodium 139, Potassium 3.9, Chloride 105, Carbon Dioxide 23.5, Anion Gap 11, BUN 18, Creatinine 0.66 L, Estim Creat Clear Calc 83.65, Est GFR (MDRD) Non-Af 99, BUN/Creatinine Ratio 28.1 H, Glucose 144 H, Calcium 8.6 Radiography Diagnostic Testing: Radiology Impression Hip X-Ray 07/18/25 15:00 IMPRESSION: As above. Reading Location: [facility] Hip X-Ray 07/18/25 17:00 IMPRESSION: Intact bilateral hip arthroplasties. Reading Location: [facility] Physical Exam Const alert, oriented x3, no apparent distress, average body habitus and well nourished General Appearance: cooperative, comfortable and well developed HEENT normocephalic, head/scalp atraumatic, hearing grossly normal bilaterally, nasal mucous membranes and turbinates normal and oropharynx normal Eyes PERRL, EOMs intact bilaterally and conjunctivae normal Neck full ROM, no lymphadenopathy and supple Lymph Lymphatic: no lymphedema noted Chest inspection of chest normal Resp normal respiratory effort, normal air movement, no use of accessory muscles and clear to auscultation bilaterally Cardio regular rate, regular rhythm, S1 normal heart sound, S2 normal heart sound, no murmurs and peripheral pulses 2+ throughout GI normal to inspection, nondistended, normoactive bowel sounds, soft to palpation, non-tender and non-distended Back/Spine normal ROM Extremity Extremity Narrative: intact dressing over surgical site on right anterior hip, no erythema or bleeding. General Extremity: no tenderness to palpation of joints or extremities Skin no rashes or lesions noted Skin Narrative: as under extremity. Neuro CN's II-XII intact bilaterally, no focal motor deficits and no sensory deficits noted Motor Exam: general weakness Psych mental status grossly normal, thought process normal, cooperative and affect normal Appearance: appropriate Assessment & Plan Assessment/Plan (1) Closed fracture of right hip: (2) Fall: PLAN: Plan #Right hip fracture due to mechanical fall * patient sustained a mechanical fall when walking through the door of his house * imaging done showed acute angulated subcapital right femoral neck fracture * orthopedic surgery on board. * s/p right anterior hip total replacement on 07/18/2025. Today is POD 1. * On PO tylenol, PO oxycodone and IV morphine prn for pain * fall precautions * incentive spirometry * #Hypertension: on amlodipine and valsartan. IV hydralazine prn #BPH with obstructive symptoms: on finasteride and flomax #Anxiety and depression: on sertraline and ativan #GERD: on PPI DVT prophylaxis; on xarelto 10mg daily as per orthopedics Disposition: will benefit from placement.[facility] Case Management on board. Charges/Coding Visit Charges Inpatient E&M: 61313 Subs Hosp L2
--- NOTE | 2025-07-19 11:20 | PN.ORTHO_ITS ---
Subjective Subjective Patient is lying comfortably in bed upon examination. Patient states that his pain is adequately controlled at this point. Patient states that he feels he would feel more comfortable with placement following discharge at this point. [facility]. Patient has not yet worked with physical therapy. Patient states he has been up as he took a walk with the nurses last night. Patient denies any new numbness or tingling. Patient denies any nausea, vomiting, dizziness. Patient denies any shortness of breath, chest pain, calf pain. Objective Data Objective Data Vital Signs: Vital Signs Temp Pulse Resp BP Pulse Ox O2 Del Method O2 Flow Rate 100.0 F H 84 18 126/73 H 93 Room Air 3 07/19/25 10:00 07/19/25 10:00 07/19/25 10:00 07/19/25 10:00 07/19/25 10:00 07/19/25 10:00 07/19/25 05:00 Oxygen Flow Rate (L/min) 3 Oxygen Delivery Method Room Air Weight: 84.822 kg Body Mass Index (BMI) 26.8 Intake & Output: Intake and Output for Last 24 Hours 07/17/25 07/18/25 07/19/25 23:59 23:59 23:59 Intake Total 400 / 400 2270 / 2270 50 / 50 Output Total 0 / 800 2700 / 2700 400 / 400 Balance 400 / -400 -430 / -430 -350 / -350 Lab / Micro Data 07/19/25 05:58 07/19/25 05:58 Labs: Laboratory Results - last 24 hr 07/19/25 05:58: WBC 11.5 H, RBC 3.60 L, Hgb 10.8 L, Hct 31.8 L, MCV 88.3, MCH 30.0, MCHC 34.0, RDW Std Deviation 41.6, RDW Coeff of Jay 12.9, Plt Count 200, MPV 10.0, Immature Gran % (Auto) 0.500, Neut % (Auto) 88.9 H, Lymph % (Auto) 5.3 L, [place] % (Auto) 5.1, Eos % (Auto) 0.1, Baso % (Auto) 0.1, Absolute Neuts (auto) 10.2 H, Absolute Lymphs (auto) 0.61 L, Nucleated RBC % 0, Sodium 139, Potassium 3.9, Chloride 105, Carbon Dioxide 23.5, Anion Gap 11, BUN 18, Creatinine 0.66 L, Estim Creat Clear Calc 83.65, Est GFR (MDRD) Non-Af 99, BUN/Creatinine Ratio 28.1 H, Glucose 144 H, Calcium 8.6 Radiography Diagnostic Testing: Radiology Impression Hip X-Ray 07/18/25 15:00 IMPRESSION: As above. Reading Location: [facility] Hip X-Ray 07/18/25 17:00 IMPRESSION: Intact bilateral hip arthroplasties. Reading Location: [facility] Physical Exam Narrative Vital signs are stable and afebrile SCDs in place bilaterally RAHEL hose in place bilaterally Dressing is clean, dry, intact. Right hip soft and supple Dorsiflexion and plantarflexion are performed without pain or restriction Neurovascularly intact overall. Sensation intact to light touch. Const alert, oriented x3 and no apparent distress Assessment & Plan Assessment/Plan (1) S/P total left hip arthroplasty: PLAN: Status post left total hip arthroplasty day 1 1. DVT prophylaxis: Patient will be on Xarelto for 2 weeks postoperatively due to overall increased risk with decreased mobility. Patient will then switch to aspirin 81 mg twice daily until 4 weeks postoperatively. Patient will be wearing RAHEL hose for 2 weeks postoperatively. Patient was educated he can take RAHEL hose off for showers and at nighttime. 2. Pain medication: Patient is currently on Tylenol and oxycodone. Pain will be managed per primary care team. 3. Physical therapy: Patient will be weightbearing as tolerated walker. Patient was reminded of anterior hip precautions in office today. 4. H&H: 10.8/31.8. Vitals are stable and patient is currently afebrile at this time. 5. Reactive leukocytosis: White blood cell count is currently 11.5. Patient's vital signs are stable and patient is afebrile. Patient did receive Decadron intraoperatively. Patient did have very low-grade fever of 100.0 F this morning patient denies any chills or signs of infection. 6. Incentive spirometry: Patient was encouraged to use incentive spirometer every hour that they are awake for the first week to exercise lungs decreased risk of postoperative lung infection. 7. Dressings: Patient was educated he can get dressing wet on postoperative day 1. Patient was educated to remove dressing on postoperative day 5. As long as incision is clean, dry, intact may leave incision open to air. 8. Medicine is currently primary care team on this patient. 9. Case management is involved and patient would like placement following discharge. 10. Patient is to follow-up for postoperative instructions. 11. Disposition: Patient is okay for discharge from orthopedic services as long as pain maintains adequately controlled, continues to work with and is cleared by physical therapy, and maintains medically stable. Patient is orthopedically stable at this time. Patient does prefer placement on discharge. Patient was reminded of anterior hip precautions in office today. Patient will be weightbearing as tolerated with physical therapy. Patient will need a 2-week follow-up appointment with our office for wound check and reevaluation. Patient will need outpatient physical therapy scheduled upon discharge. Patient was encouraged to call with any questions, concerns, new problems.
[2025-07-19] MEDS: Ensure Surgery 237 ML LIQUID PO ×2 (11:41→16:59)
--- NOTE | 2025-07-19 12:10 | CASEMGMT ---
Addendum entered by Delia Fry 07/19/25 15:05: DC [facility] care. Pt may admit on Tuesday if medically ready. PASSR completed in [facility] for admission to SNF. Green sheet on chart to facilitate dc. Addendum entered by Delia Fry 07/19/25 14:11: Pt states his will be visiting and he will notify her. He denies any other people to contact. Addendum entered by Delia Fry 07/19/25 14:05: Pt has been accepted to [facility]. RN CM into pt room, pt is aware that when he is medically ready he may dc to [facility]. Pt verbalizes understanding and is appreciative of the information. Original Note: Noted therapy homer, requested dc pathology assistant send referral to [facility].
--- NOTE | 2025-07-19 12:36 | CASEMGMT ---
Addendum entered by Theresa Hernandez 07/19/25 12:48: [facility] has accepted. MANGO TRACY updated. Theresa Hernandez DC Planning Asst. Original Note: Discharge Planning Referral sent to [facility] at [facility]. Theresa Hernandez DC Planning Asst.
--- NOTE | 2025-07-19 14:40 | CHAPLAIN ---
Type of Pastoral Visit _x__ Initial Visit ___ Follow-up Visit ___ On-call Visit ___ General Patient Visit ___ Spiritual Assessment ___ Family Conference ___ Bereavement ___ Rapid Response ___ Code Blue ___ Other (describe below) Pastoral Care Referral From _x__ Patient ___ Family ___ Nurse ___ Physician ___ Biophysics Professor ___ Investment Underwriter ___ Other (describe below) Sacrament/Intervention _x__ Active listening ___ Anointing ___ Yarsani ___ Bereavement ___ Communion ___ She exploration ___ _x__ Life review _x__ Prayer ___ Reconciliation ___ Sacrament of Sick _x__ Supportive presence ___ Wedding ___ Other (describe below) Pastoral Comments patient is welcoming and explains his current situation and gives some past review of broken bones and surgery; pt has a that is healthy and supportive; pt recognizes that he will need rehab in a facility due to home lay out and limited family help; pt presents self with a positive attitude and uses his past experiences to prepare for what he is facing now;
[2025-07-19] MEDS: MELATONIN 10 MG TABLET PO (21:35)
[2025-07-20 00:48] VITALS: BP 118/75; PULSE 70; RESP 18; TEMP 36.5; O2SAT 96
[2025-07-20] MEDS: MELATONIN 3 MG TABLET PO (00:51)
[2025-07-20 05:42] LABS: Hematocrit 28.9 % (40-54); Hemoglobin 10.0 g/dL (13.0-16.5); Immature Granulocytes Count 0.050 X10^3/uL (0.0-0.0); Mean Corp Hgb Conc 34.6 g/dL (32-36); Mean Corpuscular Volume 88.1 fL (80-94); Mean Platelet Vol. 10.3 fl (6.2-12.0); NRBC Flagged by Analyzer 0 % (0-5); Platelet Count 175 K/mm3 (150-450); RBC Distribution Width CV 13.1 % (11.6-14.6); RBC Distribution Width SD 42.4 fl (35.1-43.9); Red Blood Count 3.28 M/mm3 (4.6-6.2); White Blood Count 9.4 K/mm3 (4.4-11.0)
[2025-07-20 06:12] LABS: Anion Gap 9 (5-15); BUN 21 mg/dL (4-19); BUN/Creat Ratio 32.1 RATIO (10-20); Calcium,Total 8.1 mg/dL (7.6-11.0); Carbon Dioxide 24.8 mmol/L (21.0-32.0); Chloride 106 mmol/L (98-108); Estimated Creatinine Clearance 83.65 ml/min (50-250); Glucose 113 mg/dL (70-99); Potassium 3.7 mmol/L (3.3-5.1)
[2025-07-20 06:18] VITALS: BP 114/62; PULSE 73; RESP 18; TEMP 36.2; O2SAT 97
[2025-07-20 07:35] VITALS: O2SAT 95
[2025-07-20 08:18] VITALS: BP 113/66; PULSE 74; RESP 20; TEMP 36.8; O2SAT 92
--- NOTE | 2025-07-20 10:02 | TREXTCAR_ITS ---
Diet Diet Order/Speech Therapy: INPATIENT Hospital Diet / Speech Therapy Order(s) 07/19/25 09:00 Diet: Regular - General Routine Orders/Code Status Enema Type: Fleetz Enema Frequency: Daily PRN Suppository Type: Dulcolax 10mg Suppository Frequency: Daily PRN DC O2, CPAP, BIPAP needs Home O2 Discharge instructions: No Wound(s) rt knee: Wound Type: Abrasion rt great toe: Wound Type: ripped toenail RT HIP: Wound Type: Surgical Incision R elbow: Wound Type: Abrasion Therapies Weight Bearing: Weight bearing as tolerated Physical Therapy: Eval and Treat Occupational Therapy: Eval and Treat Problem/Diagnosis (1) S/P total left hip arthroplasty: Status: Acute Code(s): Z96.642 - Presence of left artificial hip joint Plan #Right hip fracture due to mechanical fall * patient sustained a mechanical fall when walking through the door of his house * imaging done showed acute angulated subcapital right femoral neck fracture * orthopedic surgery on board. * s/p right anterior hip total replacement on 07/18/2025. Today is POD 1. * On PO tylenol, PO oxycodone and IV morphine prn for pain * fall precautions * incentive spirometry * #Hypertension: on amlodipine and valsartan. IV hydralazine prn #BPH with obstructive symptoms: on finasteride and flomax #Anxiety and depression: on sertraline and ativan #GERD: on PPI DVT prophylaxis; on xarelto 10mg daily as per orthopedics Disposition: will benefit from placement.[facility]. Case Management on board. Allergies/Procedures Done in Hospital Allergies No Known Allergies Allergy (Verified 07/17/25 14:49) Procedures: None Type of Care/Length of Stay Estimated LOS: Convalescent Care Less Than 30 days Type of Care Needed: Skilled Rehab Potential: Fair Prognosis: Fair Additional Orders/Day of Discharge Day of Discharge: 07/20/25 Dietary and Speech Recommendations Dietitian Recommendations/Changes: Recommend advance diet as tolerated to regular; add ONS as needed if PO established suboptimal at meals. Discharge Plan Admission Admit Date/Time: 07/17/25 16:13 Primary Reason for Your Visit: right hip fracture due to mechanical fall Attending Provider: Celeste Lion Primary Care Provider: Rachele Pratt Consulting Providers: Lul Villar; Federico Aguirre Instructions Patient Instructions: Hip Fracture Surgery ..., Total Hip Replace Min Invasive Additional Instructions / Restrictions: take xarelto 10mg daily x 2 weeks, followed by aspirin 81mg bid x 2 weeks for DVT prophylaxis. Discharge Orders/Prescriptions Prescriptions: New oxycodone 5 mg Tablet 5 mg PO Q6H PRN PRN (Reason: Pain Score 4-10) 5 Days Qty: 20 0RF Xarelto 10 mg Tablet 10 mg PO DAILY@0600 Qty: 14 0RF aspirin 81 mg tablet 81 mg PO BID 14 Days Qty: 28 0RF Rx Instructions: start after you finish the 2 week course of xarelto for DVT prophylaxis Continued amlodipine-valsartan [Exforge] 1 TAB tablet 160 mg PO DAILY Patient Comments: HEART/BLOOD PRESSURE Therems-M 1 TABLET tablet 1 tab PO DAILYCM Qty: 30 0RF Patient Comments: VITAMIN melatonin 10 mg capsule 10 mg PO QHS pantoprazole 40 mg tablet,delayed release (DR/EC) 40 mg PO DAILY acetaminophen 500 mg capsule 1,000 mg PO Q8H PRN PRN (Reason: pain) tamsulosin 0.4 mg Capsule 0.4 mg PO QHS sertraline 50 mg tablet 100 mg PO DAILY meloxicam 7.5 mg Tablet 7.5 mg PO BID 30 Days Qty: 60 0RF finasteride 5 mg Tablet 5 mg PO DAILY Qty: 30 2RF hydroxyzine HCl 25 mg tablet 25 - 50 mg PO QHS PRN PRN (Reason: anxiety) Referrals / Follow Up: Lul Villar MD [Med Staff - Active Staff] - Within 2 Weeks Rachele Pratt NP-C [Primary Care Provider] - Within 1 Week Disposition Disposition (needs filled in before D/C Order can be placed): Longterm Facility
--- NOTE | 2025-07-20 10:03 | DS.PCM_ITS ---
Providers Date of Admission: 07/17/25 Date of Discharge: 07/20/25 Primary Care Physician: ANGELICA Hairston Consultations 07/17/25 17:27 Consult: Orthopedics Routine Consulting Provider: Lul Villar Reason for Consult: fall w/ right femoral neck fracture EMERGENT Consult: No MD Notified: Yes Date Notified: 07/17/25 Time Notified: 16:17 Method of Notification: Answering Service Reason For Visit: FALL WITH RIGHT HIP FRACTURE Diagnosis Discharge Diagnosis (1) S/P total left hip arthroplasty: Status: Acute Code(s): Z96.642 - Presence of left artificial hip joint Plan #Right hip fracture due to mechanical fall * patient sustained a mechanical fall when walking through the door of his house * imaging done showed acute angulated subcapital right femoral neck fracture * orthopedic surgery on board. * s/p right anterior hip total replacement on 07/18/2025. Today is POD 1. * On PO tylenol, PO oxycodone and IV morphine prn for pain * fall precautions * incentive spirometry * #Hypertension: on amlodipine and valsartan. IV hydralazine prn #BPH with obstructive symptoms: on finasteride and flomax #Anxiety and depression: on sertraline and ativan #GERD: on PPI DVT prophylaxis; on xarelto 10mg daily as per orthopedics Disposition: will benefit from placement.[facility]. Case Management on board. Medications at Discharge Home Medications amlodipine 10 mg-valsartan 160 mg tablet (Exforge) 160 mg PO DAILY HEART 07/01/14 multivitamin,[id number]-[id number]-mfgvfvmi 27 mg-0.4 mg tablet (Therems-M) 1 tab PO DAILYCM #30 TABLETS 07/03/14 finasteride 5 mg tablet 5 mg PO DAILY #30 tabs 04/12/24 acetaminophen 500 mg capsule 1,000 mg PO Q8H PRN PRN pain 05/28/24 melatonin 10 mg capsule 10 mg PO QHS SLEEP 05/28/24 pantoprazole 40 mg tablet,delayed release 40 mg PO DAILY GERD 05/28/24 tamsulosin 0.4 mg capsule 0.4 mg PO QHS BPH 05/28/24 sertraline 50 mg tablet 100 mg PO DAILY DEPRESSION 06/04/24 meloxicam 7.5 mg tablet 7.5 mg PO BID 30 days #60 tabs 06/06/24 hydroxyzine HCl 25 mg tablet 25 - 50 mg PO QHS PRN PRN anxiety 07/17/25 OXYGEN - Supplemental ([facility] INFORMATIONAL USE ONLY) 07/20/25 aspirin 81 mg tablet 81 mg PO BID 2 weeks #28 tabs 07/20/25 oxycodone 5 mg tablet 5 mg PO Q6H PRN PRN Pain Score 4-10 5 days #20 tabs 07/20/25 rivaroxaban 10 mg tablet (Xarelto) 10 mg PO DAILY@0600 #14 tabs 07/20/25 Hospital Course Operations total hip replacement (right) Procedures None Summary of Care Provided Minutes Spent on Discharge: 45 Hospital Course: Patient is a 75-year-old male with a past medical history as outlined was admitted to the ED on 07/17/2025 with a complaint of mechanical fall. He was walking to the door of his house and tripped. He landed on his right side with resultant right hip pain. He was brought to the ED where imaging done showed a right angulated subcapital right femoral neck fracture. Orthopedic surgery was consulted and patient was admitted to be managed for right hip fracture due to mechanical fall. He had a right anterior total hip arthroplasty on 07/18/2025. Hospital course postop was uncomplicated. He was placed on p.o. Xarelto 10 mg daily for 2 weeks and to be continued by p.o. aspirin 81 mg twice daily for another 2 weeks for DVT prophylaxis. He was discharged on p.o. oxycodone 5 mg every 6 hours as needed for total of 20 tablets with 0 refills. He is follow-up with his primary care doctor and follow-up with orthopedic surgery within 1 to 2 weeks. He was discharged on 07/20/2025. Patient seen and examined prior to discharge. He had no active complaints and had an uneventful night. Review of systems otherwise negative. Labs and vitals reviewed. Home medication reviewed and reconciled. Physical Exam Const alert, oriented x3, no apparent distress, average body habitus and well nourished General Appearance: cooperative, comfortable and well kempt HEENT normocephalic, head/scalp atraumatic, hearing grossly normal bilaterally and nasal mucous membranes and turbinates normal Mouth: oral and palatal mucosa normal Eyes PERRL, EOMs intact bilaterally and conjunctivae normal Neck full ROM and supple Lymph Lymphatic: no lymphedema noted Chest inspection of chest normal Resp normal respiratory effort, normal air movement, no use of accessory muscles and clear to auscultation bilaterally Cardio regular rate, regular rhythm, S1 normal heart sound, S2 normal heart sound, no murmurs and peripheral pulses 2+ throughout GI normal to inspection, nondistended, normoactive bowel sounds, soft to palpation, non-tender and non-distended Back/Spine normal ROM Extremity Extremity Narrative: intact dressing over surgical site on right anterior hip, no erythema or bleeding. General Extremity: no tenderness to palpation of joints or extremities Skin no rashes or lesions noted Skin Narrative: as under extremity. General Skin Exam: no breakdown Neuro oriented x3, CN's II-XII intact bilaterally, moves all extremities, no focal motor deficits, no sensory deficits noted and deep tendon reflexes 2+ bilaterally Motor Exam: general weakness Psych mental status grossly normal, thought process normal, cooperative and affect normal Appearance: appropriate Weight / BMI Weight Weight: 187 lb 0.008 oz Body Mass Index (BMI) 26.8 ABG / Lab / Microbiology Data 07/20/25 05:06 07/20/25 05:06 Laboratory: Laboratory Results - last 24 hr 07/20/25 05:06: WBC 9.4, RBC 3.28 L, Hgb 10.0 L, Hct 28.9 L, MCV 88.1, MCH 30.5, MCHC 34.6, RDW Std Deviation 42.4, RDW Coeff of Jay 13.1, Plt Count 175, MPV 10.3, Immature Gran % (Auto) 0.500, Neut % (Auto) 79.0 H, Lymph % (Auto) 11.4 L, [place] % (Auto) 7.4, Eos % (Auto) 1.5, Baso % (Auto) 0.2, Absolute Neuts (auto) 7.4, Absolute Lymphs (auto) 1.07, Nucleated RBC % 0, Sodium 140, Potassium 3.7, Chloride 106, Carbon Dioxide 24.8, Anion Gap 9, BUN 21 H, Creatinine 0.64 L, Estim Creat Clear Calc 83.65, Est GFR (MDRD) Non-Af 99, BUN/Creatinine Ratio 32.1 H, Glucose 113 H, Calcium 8.1 D/C Instructions Discharge Activity: Return to Normal Activity Weight Bearing Status: Weight bearing as tolerated Call your doctor if you observe: Fever of 101 or Higher, Shortness of breath, Dizziness, Swelling in the ankles and Chest pain DC O2, CPAP, BIPAP Needs Home O2 Discharge instructions: No DC home with Oxygen: No Meaningful Use Info Meaningful Use Meaningful Use Diagnoses (Choose all that apply): None applicable Discharge Plan Admission Admit Date/Time: 07/17/25 16:13 Primary Reason for Your Visit: right hip fracture due to mechanical fall Attending Provider: Celeste Lion Primary Care Provider: Rachele Pratt Consulting Providers: Lul Villar; Federico Aguirre Instructions Patient Instructions: Hip Fracture Surgery ..., Total Hip Replace Min Invasive Additional Instructions / Restrictions: take xarelto 10mg daily x 2 weeks, followed by aspirin 81mg bid x 2 weeks for DVT prophylaxis. Discharge Orders/Prescriptions Prescriptions: New oxycodone 5 mg Tablet 5 mg PO Q6H PRN PRN (Reason: Pain Score 4-10) 5 Days Qty: 20 0RF Xarelto 10 mg Tablet 10 mg PO DAILY@0600 Qty: 14 0RF aspirin 81 mg tablet 81 mg PO BID 14 Days Qty: 28 0RF Rx Instructions: start after you finish the 2 week course of xarelto for DVT prophylaxis Continued amlodipine-valsartan [Exforge] 1 TAB tablet 160 mg PO DAILY Patient Comments: HEART/BLOOD PRESSURE Therems-M 1 TABLET tablet 1 tab PO DAILYCM Qty: 30 0RF Patient Comments: VITAMIN melatonin 10 mg capsule 10 mg PO QHS pantoprazole 40 mg tablet,delayed release (DR/EC) 40 mg PO DAILY acetaminophen 500 mg capsule 1,000 mg PO Q8H PRN PRN (Reason: pain) tamsulosin 0.4 mg Capsule 0.4 mg PO QHS sertraline 50 mg tablet 100 mg PO DAILY meloxicam 7.5 mg Tablet 7.5 mg PO BID 30 Days Qty: 60 0RF finasteride 5 mg Tablet 5 mg PO DAILY Qty: 30 2RF hydroxyzine HCl 25 mg tablet 25 - 50 mg PO QHS PRN PRN (Reason: anxiety) No Action (DME) OXYGEN - Supplemental ([facility] INFORMATIONAL USE ONLY) Gas See Rx Instructions .ROUTE Patient Comments: 3lpm from [facility] Rx Instructions: As directed Referrals / Follow Up: Lul Villar MD [Med Staff - Active Staff] - Within 2 Weeks Rachele Pratt NP-C [Primary Care Provider] - Within 1 Week Disposition Disposition (needs filled in before D/C Order can be placed): [facility] Charges/Coding Visit Charges Inpatient E&M: 38381 Disch Hosp >30min
== END 2025-07-20 11:41 | disposition skilled nursing facility (03) | DRG 522 ==
LOC: ED 16:27 → MS3 16:34
PROVIDERS: Specialist; Admitting Provider Hospitalist; Emergency Provider Emergency Medicine; PCP Nurse Practitioner Family; Visit Provider Student in an Organized Health Care Education/Training Program
PROC: 0SR90JA Replacement of Right Hip Joint with Synthetic Substitute, Uncemented, Open Approach (ICD-10-PCS; CPT 27284; principal; 2025-07-18 13:15)
DX: S72.011A Unspecified intracapsular fracture of right femur, initial encounter for closed fracture (principal); N13.8 Other obstructive and reflux uropathy; Z66 Do not resuscitate; I10 Essential (primary) hypertension; F32.A Depression, unspecified; K21.9 Gastro-esophageal reflux disease without esophagitis; W01.0XXA Fall on same level from slipping, tripping and stumbling without subsequent striking against object, initial encounter; F41.9 Anxiety disorder, unspecified; N40.1 Benign prostatic hyperplasia with lower urinary tract symptoms; Z96.642 Presence of left artificial hip joint; Z79.82 Long term (current) use of aspirin; Z79.899 Other long term (current) drug therapy; Z87.891 Personal history of nicotine dependence
CPT/HCPCS: 36415; 71045; 73502; 76000; 80048; 80076; 83036; 85025; 85027; 85610; 85730; 86850; 86900; 86901; 88304; 88311; 93005; 94668; 97162; 97165; 97802; 99285; C1776; A4216; J2405

== ENCOUNTER 2025-11-18 08:38 | Inpatient (IN) | payer MEDICARE, OTHER, SELFPAY ==
[2025-11-18] VITALS (7 sets, daily range): BP systolic 123–132; BP diastolic 70–85; PULSE 63–70; RESP 16–18; TEMP -17.7–36.8; O2SAT 95–98; BMI 24.9
--- NOTE | 2025-11-18 08:48 | ED.RN ---
pt initally reported lightheadedness when when he has the falls, when further questioned pt denies lightheadedness. he is unsure.
--- NOTE | 2025-11-18 08:57 | CT_ITS ---
PROCEDURE: SPINE CERVICAL WITHOUT CONTRAS 11/18/2025 REASON FOR EXAM: FREQUENT FALLS TECHNIQUE: Procedure Code: CTSPC Modality: CT Procedure: SPINE CERVICAL WITHOUT CONTRAS Coronal and Sagittal reconstruction series were provided. One or more dose reduction techniques were used (e.g., Automated exposure control, adjustment of the mA and/or kV according to patient size, use of iterative reconstruction technique. RADIATION DOSE SUMMARY: DLP: 397.66 mGycm COMPARISON: None available. FINDINGS: The visualized posterior fossa contents appear within normal limits for the patient's stated age. Strain cervical spine. The atlantooccipital and atlantoaxial joints appear normally aligned. The atlas and axis are intact. The remaining cervical vertebral bodies are normal in height. Mild C3-C4 anterolisthesis.There is no evidence of focal lytic or sclerotic lesion in the cervical spine. There is no prevertebral soft tissue swelling. Multilevel degenerative changes of the cervical spine without high-grade spinal canal stenosis on CT. CT/Spine Cervical without Contras IMPRESSION: No acute fracture or dislocation in the cervical spine. Reading Location: [id number]
--- NOTE | 2025-11-18 08:57 | CT_ITS ---
PROCEDURE: CT CHEST, ABD, PEL W/CONTRAST 11/18/2025 REASON FOR EXAM: RIGHT FLANK PAIN AFTER FALL TECHNIQUE: Chest, abdomen and pelvis CT with intravenous contrast. Coronal and Sagittal reconstruction series were provided. One or more dose reduction techniques were used (e.g., Automated exposure control, adjustment of the mA and/or kV according to patient size, use of iterative reconstruction technique. PATIENT PREPARATION: Per protocol CONTRAST: Isovue-300 VOLUME: 98mL RADIATION DOSE SUMMARY: CTDlvol: 14.41, 20.01 mGy DLP: 482.36, 1098.82 mGycm COMPARISON: 11/11/2023 FINDINGS: CHEST: LUNGS: No pulmonary mass. No focal airspace consolidation. Dependent atelectasis bilaterally. Bandlike atelectasis/scarring in the right middle lobe. PLEURAL SPACES: No pleural effusion. No pneumothorax. HEART: Mild cardiomegaly. No significant pericardial effusion. Coronary artery and aortic valve calcification. MEDIASTINUM/HILUM: No significant lymphadenopathy. AORTA: No aneurysm or dissection. Mild calcified atherosclerosis. ESOPHAGUS: Unremarkable. SOFT TISSUES: The soft tissues are unremarkable. BONES: Acute fracture of the right lateral 9th and 10th ribs. Old rib fractures bilaterally. ABDOMEN AND PELVIS: LIVER: Multiple hypodense lesions without significant change. The largest is 1.5 cm and likely represents a cyst. The others are too small to definitively characterize. GALLBLADDER: Unremarkable. No calcified stone. BILE DUCTS: No ductal dilation. PANCREAS: Unremarkable. SPLEEN: Unremarkable. ADRENAL GLANDS: Unremarkable. KIDNEYS: Normal symmetric renal enhancement bilaterally. Left upper pole stone measuring 3.3 mm. No hydronephrosis or hydroureter. Right renal cysts again noted, the largest is 3.8 cm. STOMACH AND BOWEL: Small hiatal hernia. Multiple duodenal diverticula, the largest is 3.9 cm. No obstruction or perforation. No wall thickening. Colonic diverticulosis. No CT evidence of colitis or acute diverticulitis. APPENDIX: Normal-appearing appendix. No CT evidence for appendicitis. RETRO/PERITONEUM: No free fluid. No free air. LYMPH NODES: No lymphadenopathy. PELVIC ORGANS: Limited evaluation due to hip hardware streak artifact. Nonspecific prostate gland calcifications. No gross bladder abnormality seen. VASCULATURE: No aortic aneurysm. Scattered calcified atherosclerosis. 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 SOFT TISSUES: The soft tissues are unremarkable. BONES: No acute osseous abnormality. Bilateral hip prostheses. Degenerative changes of the spine. T12 compression deformity status post vertebroplasty. CT/CT Chest, Abd, Pel w/Contrast IMPRESSION: 1. Acute right lateral 9th and 10th rib fractures. 2. No acute intra-thoracic, intra-abdominal, or intra-pelvic injury. 3. Nonobstructing left renal calculus. 4. Coronary artery calcification (CAC) is present. 5. Duodenal and colonic diverticulosis without signs of diverticulitis. Reading Location: [id number]
--- NOTE | 2025-11-18 08:57 | CT_ITS ---
PROCEDURE: BRAIN/HEAD WITHOUT CONTRAST 11/18/2025 REASON FOR EXAM: FREQUENT FALLS TECHNIQUE: Procedure Code: CTBR Modality: CT Procedure: BRAIN/HEAD WITHOUT CONTRAST Coronal and Sagittal reconstruction series were provided. One or more dose reduction techniques were used (e.g., Automated exposure control, adjustment of the mA and/or kV according to patient size, use of iterative reconstruction technique. RADIATION DOSE SUMMARY: CTDlvol: 115 mGy DLP: 2866 mGycm COMPARISON: November 11, 2023 FINDINGS: Brain: There is no evidence of hemorrhage, acute ischemia or mass. No extra- axial fluid collection, midline shift or mass effect. CSF Spaces: Mild generalized cerebral atrophy Sinuses/Mastoids: Clear Bones: No fracture CT/Brain/Head without Contrast IMPRESSION: No acute intracranial abnormality Reading Location: [id number]
--- NOTE | 2025-11-18 08:58 | EKG12_ITS ---
Test Reason : ARRYTH Blood Pressure : */* mmHG Vent. Rate : 60 BPM Atrial Rate : 60 BPM P-R Int : 168 ms QRS Dur : 136 ms QT Int : 476 ms P-R-T Axes : 51 -21 43 degrees QTcB Int : 476 ms Normal sinus rhythm Right bundle branch block Abnormal ECG Confirmed by Rafael Flores ([id number]), city editor CHAPO ROMERO [id number]) on 11/19/2025 10:59:43 AM Also confirmed by Rafael Flores ([id number]), city editor CHAPO ROMERO ([id number]) on 11/20/2025 11:09:03 AM Referred By: Confirmed By: Rafael Flores
--- NOTE | 2025-11-18 09:06 | ED.VIS.FALL ---
HPI HPI - Fall History of Present Illness Chief Complaint: Fall Narrative Narrative: Patient is a 75-year-old male presenting to the emergency department after a fall last evening with right sided chest and flank pain. Patient has a past medical history of GERD, hypertension, arthritis, alcohol abuse. Patient states that he has been having frequent falls at home. He lives at home with his . She states that his last bad fall was a week and a half ago. States he is not really sure why he is falling he reports that he feels a little lightheaded sometimes causing him to fall. He had a MRI brain outpatient for the frequent falls and is following up in office on Tuesday for the results. He states over the past 5 days he has had 3 falls the first 2 being small falls and had 1 last night causing fairly severe pain on his right side. He states he was backing up to sit on the toilet when he fell onto the windowsill on his right side. He does not think he hit his head. He denies LOC or use of oral anticoagulation. He states that is hard to take a deep breath because of the pain on his right side. He denies any chest pain, shortness of breath, abdominal pain, palpitations prior to the fall. He denies any pain in his neck, back, hips or extremities. [facility] Medical History Closed fracture of right hip Fall Lives in [place] [facility] Essential tremor Depression Anxiety Arthritis Indwelling urethral catheter present Fatty liver Back pain Restless legs Dietary restriction History of hiatal hernia History of IBS Gastric reflux Former smoker History of pain when walking History of stress test Unilateral primary osteoarthritis, left hip Tremors of nervous system Gait instability Other intervertebral disc degeneration, lumbar region Low back pain T12 compression fracture Myelopathy Osteoarthritis of left hip Frequent falls Complicated UTI (urinary tract infection) Intractable low back pain Godinez catheter present Weakness HTN (hypertension) Home Medications ?Medication ?Instructions ?Recorded ?Last Taken ?Type amlodipine 10 mg-valsartan 160 mg 1 tab PO DAILY HEART 07/01/14 11/18/25 History tablet (Exforge) multivitamin,[id number] 27 1 tab PO DAILYCM #30 TABLETS 07/03/14 11/18/25 Rx mg-0.4 mg tablet (Therems-M) finasteride 5 mg tablet 5 mg PO DAILY #30 tabs 04/12/24 11/18/25 Rx acetaminophen 500 mg capsule 1,000 mg PO Q8H PRN PRN pain 05/28/24 11/18/25 History pantoprazole 40 mg tablet,delayed 40 mg PO DAILY GERD 05/28/24 11/18/25 History release tamsulosin 0.4 mg capsule 0.4 mg PO QHS BPH 05/28/24 11/17/25 History meloxicam 7.5 mg tablet 7.5 mg PO BID 30 days #60 tabs 06/06/24 11/18/25 Rx hydroxyzine HCl 25 mg tablet 25 - 50 mg PO QHS PRN PRN anxiety 07/17/25 11/17/25 History OXYGEN - Supplemental ([facility] 07/20/25 Unknown History INFORMATIONAL USE ONLY) sertraline 100 mg tablet 100 mg PO DAILY 11/18/25 11/18/25 History Allergy/AdvReac Type Severity Reaction Status Date / Time No Known Allergies Allergy Verified 11/18/25 08:42 Surgical History S/P total left hip arthroplasty History of total left hip replacement History of kyphoplasty Social History Smoking Status: Unknown if ever smoked ROS ROS ED ROS Narrative see HPI EXAM Physical Exam Narrative Exam Narrative: Vital signs: Reviewed General: Alert and orientedx3. No acute distress. Well-appearing, nontoxic HEENT: Head is normocephalic and atraumatic. No cephalohematoma, abrasions or lacerations. Sinuses nontender, pupils 2 mm equal round and reactive. Nares are patent. No septal hematoma. Oropharynx and throat exams normal. No oropharyngeal trauma. Neck: Supple without lymphadenopathy nontender. No midline cervical spinal tenderness to palpation. No step-offs or deformities. Cardiovascular: Regular rate and rhythm, no murmurs. No rubs or gallops. Normal S1 and S2 Respiratory: Clear to auscultation bilaterally. No wheezes, rales, rhonchi Chest: Chest wall is stable to palpation. On the lower right lateral chest wall there is an area of ecchymosis and tenderness. There is no erythema, warmth or crepitus. No trauma to the anterior or posterior chest wall. Abdominal: The area of ecchymosis on the lower right lateral chest wall extends down to the upper right abdominal wall. There is tenderness to palpation over the area of ecchymosis but otherwise abdomen is nontender to palpation. Normal bowel sounds. No guarding or rebound. Nonsurgical abdomen Extremities: No midline thoracic or lumbar spinal tenderness to palpation. No step-offs or deformities. Hips are stable and nontender to palpation. Extremities are atraumatic and nontender to palpation with normal active range of motion. Normal sensation. Skin: No rash or redness. Neurological: Cranial nerves II through XII are grossly intact. Normal strength and sensation. Normal cerebellar function The rest of the physical exam is unremarkable Const Vital Signs: 11/18/25 08:39 11/18/25 08:43 11/18/25 10:39 Temperature 97.5 F L Temperature Source Oral Pulse Rate 67 70 Respiratory Rate 16 16 Respiratory Effort Normal Respiratory Depth Normal Respiratory Pattern Normal Blood Pressure 125/81 H 132/76 H Blood Pressure Mean 95 94 Blood Pressure Source Blood Pressure Position Blood Pressure Location Pulse Ox 98 97 Oxygen Delivery Method Room Air Room Air 11/18/25 11:55 11/18/25 13:19 11/18/25 13:20 Temperature 0 F L 98.3 F Temperature Source Temporal Pulse Rate 67 67 63 Respiratory Rate 16 16 16 Respiratory Effort Respiratory Depth Respiratory Pattern Blood Pressure 125/79 H 125/79 H 123/85 H Blood Pressure Mean 94 94 97 Blood Pressure Source Monitor Blood Pressure Position Semi-Fowlers Blood Pressure Location Left Arm Pulse Ox 97 97 97 Oxygen Delivery Method Room Air 11/18/25 15:05 Temperature 98.0 F Temperature Source Temporal Pulse Rate Respiratory Rate Respiratory Effort Respiratory Depth Respiratory Pattern Blood Pressure Blood Pressure Mean Blood Pressure Source Blood Pressure Position Blood Pressure Location Pulse Ox Oxygen Delivery Method MDM MDM MDM Narrative Medical decision making narrative: Patient is a 75-year-old male presenting to emergency department for frequent falls and right sided chest wall pain. Patient was seen and examined. Vitals are stable. Patient resting bed comfortably no acute distress. Based on the patient's frequent falls and physical exam we will obtain a CT of the brain, cervical spine, chest abdomen pelvis. Will obtain lab work given the patient has felt lightheaded to evaluate for any anemia, electrolyte disturbance, urinary tract infection is causing patient's symptoms. EKG shows normal sinus rhythm with a poor baseline at a rate of 60. Evidence of a right bundle branch block with no ischemic changes or dysrhythmia. CBC with no leukocytosis and chronic anemia of 12.9. BMP with no significant normalities. Urinalysis with no evidence of urinary tract infection. CT the brain shows no acute intracranial abnormalities. CT cervical spine with no acute fracture or dislocation. CT of the chest Abd pelvis shows a acute right lateral 9th and 10th rib fracture. No acute intrathoracic or intra-abdominal traumatic injuries. Patient and at bedside were updated on the findings. Due to the patient's frequent falls I did offer him admission for placement which him and his would like done. He states he does not feel safe at home. I discussed with hospitalist for admission, Dr. Worthington. Clinical impression: Frequent falls Generalized weakness Rib fracture History & Record Review Discussion w/independent historian: Patient Lab Data Attestation: I reviewed the patient's lab results. Labs: Laboratory Results - last 24 hr 11/18/25 11/18/25 09:15 11:50 WBC 7.6 RBC 4.58 L Hgb 12.9 L Hct 38.7 L MCV 84.5 MCH 28.2 MCHC 33.3 RDW Std Deviation 42.4 RDW Coeff of Jay 13.8 Plt Count 273 MPV 9.6 Immature Gran % (Auto) 0.500 Neut % (Auto) 80.7 H Lymph % (Auto) 13.5 L Hughes % (Auto) 4.1 Eos % (Auto) 0.8 Baso % (Auto) 0.4 Absolute Neuts (auto) 6.1 Absolute Lymphs (auto) 1.02 Nucleated RBC % 0 Sodium 139 Potassium 3.4 Chloride 106 Carbon Dioxide 22.3 Anion Gap 12 BUN 15 Creatinine 0.71 Estim Creat Clear Calc 83.65 Est GFR (MDRD) Non-Af 96 BUN/Creatinine Ratio 21.4 H Glucose 166 H Calcium 9.0 Urine Color Yellow Urine Clarity Sl. Cloudy Urine pH 7.0 Ur Specific [place] 1.020 Urine Protein 15 H Urine Glucose (UA) Normal Urine Ketones Negative Urine Occult Blood Negative Urine Nitrite Negative Urine Bilirubin Negative Urine Urobilinogen 4 H Ur Leukocyte Esterase Negative Urine RBC 0 SEEN Urine WBC 0 SEEN Ur Squamous Epith Cells 0 SEEN Urine Bacteria 0 SEEN Urine Mucus 0 SEEN Radiography Diagnostic Testing: Clinical Impression(s) from Imaging Studies Brain CT 11/18/25 08:57 IMPRESSION: No acute intracranial abnormality Reading Location: [id number] Cervical Spine CT 11/18/25 08:57 IMPRESSION: No acute fracture or dislocation in the cervical spine. Reading Location: [id number] Chest/Abdomen/Pelvis CT 11/18/25 08:57 IMPRESSION: 1. Acute right lateral 9th and 10th rib fractures. 2. No acute intra-thoracic, intra-abdominal, or intra-pelvic injury. 3. Nonobstructing left renal calculus. 4. Coronary artery calcification (CAC) is present. 5. Duodenal and colonic diverticulosis without signs of diverticulitis. Reading Location: [id number] Discharge Plan Disposition Disposition: Acute Care Hospital [facility] Discharge Date/Time: 11/18/25 13:19
--- NOTE | 2025-11-18 09:08 | EKG12_ITS ---
Test Reason : O Blood Pressure : */* mmHG Vent. Rate : 66 BPM Atrial Rate : * BPM P-R Int : * ms QRS Dur : 140 ms QT Int : 432 ms P-R-T Axes : * -33 1 degrees QTcB Int : 452 ms SHORT AR INTERVAL Sinus rhythm Left axis deviation Right bundle branch block Abnormal ECG Confirmed by Rafael Flores (John), editor in chief CHAPO ROMERO ([id number]) on 11/19/2025 11:14:18 AM Also confirmed by Rafael Flores ([id number]), editor in chief CHAPO ROMERO ([id number]) on 11/20/2025 10:58:49 AM Also confirmed by Rafael Flores ([id number]), editor in chief CHAPO ROMERO ([id number]) on 11/20/2025 11:07:27 AM Referred By: Confirmed By: Rafael Flores
[2025-11-18] MEDS: fentaNYL 100 MCG/2 ML Ampul 50 MCG IV (09:21)
[2025-11-18 09:29] LABS: Hematocrit 38.7 % (40-54); Hemoglobin 12.9 g/dL (13.0-16.5); Immature Granulocytes Count 0.040 X10^3/uL (0.0-0.0); Mean Corp Hgb Conc 33.3 g/dL (32-36); Mean Corpuscular Volume 84.5 fL (80-94); Mean Platelet Vol. 9.6 fl (6.2-12.0); NRBC Flagged by Analyzer 0 % (0-5); Platelet Count 273 K/mm3 (150-450); RBC Distribution Width CV 13.8 % (11.6-14.6); RBC Distribution Width SD 42.4 fl (35.1-43.9); Red Blood Count 4.58 M/mm3 (4.6-6.2); White Blood Count 7.6 K/mm3 (4.4-11.0)
[2025-11-18 09:53] LABS: Anion Gap 12 (5-15); BUN 15 mg/dL (4-19); BUN/Creat Ratio 21.4 RATIO (10-20); Calcium,Total 9.0 mg/dL (7.6-11.0); Carbon Dioxide 22.3 mmol/L (21.0-32.0); Chloride 106 mmol/L (98-108); Estimated Creatinine Clearance 83.65 ml/min (50-250); Glucose 166 mg/dL (70-99); Potassium 3.4 mmol/L (3.3-5.1)
[2025-11-18 11:57] LABS: Mucous, Urine 0 SEEN /hpf (<or=2+); Red Blood Cells-Urine 0 SEEN /hpf (0-5); Squamous Epithelial Cells - UA 0 SEEN /hpf (0-5)
[2025-11-18 12:02] LABS: Color, Urine Yellow (Yellow); Glucose, Dipstick Normal (Normal); Ketone-Dipstick Negative (Negative); Leukocyte Esterase-Dipstick Negative /ul (Negative); Nitrite-Dipstick Negative (Negative); Occult Blood-Urine Negative /ul (Negative); Protein-Dipstick 15 mg/dl (Negative); Specific Gravity, Urine 1.020 (1.002-1.030); Urine Bilirubin Dipstick Negative (Negative)
--- NOTE | 2025-11-18 13:50 | CASEMGMT ---
Discharge Planning A list of?SNF providers including quality and resource use data and consistent with the patient's preferred geographic region, medical needs, and insurance network was created in [employer] Guide.? This list was provided to the VERÓNICA. Theresa Hernandez, Discharge Planning Asst
--- NOTE | 2025-11-18 15:10 | PCM.HP.STD ---
[facility] - General General Date of Admission: 11/18/25 Date of Service: 11/18/25 Chief Complaint: Generalized weakness frequent falls HPI Narrative WILBERT MCWILLIAMS, is a 75 M who presents to the emergency room at [facility] with complaints of frequent falls the last 1 occurring today. Patient complains of right rib discomfort, denies any shortness of breath. Patient states he has been following quite frequently over the last several weeks, he is a poor informant as to how many falls he has suffered. Patient states that he had MRI of his brain performed approximately 2 months ago-I asked him why it was ordered, he stated to rule out dementia. Emergency room physician today led me to believe that after discussing his care with his that they are concerned he may have cognitive impairment. Workup in the emergency room included a CBC which showed a normal white blood cell count, hemoglobin was 12.9, chemistry panel was abnormal for glucose of 166, urinalysis was unremarkable. Brain CT was performed which showed no acute intracranial abnormality. A CT of the chest abdomen pelvis was performed, it showed an acute right lateral 9th and 10th rib fracture, no acute intrathoracic intra-abdominal or intrapelvic injury was noted there was a nonobstructing left renal calculus. Patient will be admitted to [place] [id number], he will need placement in a senior living facility for short-term rehab services. He had been in the [facility] for several weeks this year. 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 I had a conversation with the this afternoon and she states that the patient is forgetting how to perform executive tasks and simple tasks such as using a knife and fork and getting dressed. She states the patient has not drank alcohol in 2 years and that he has noticed a marked decline this year and his cognitive ability. He had been in a prison in June due to a hip fracture, at that time she was told by the prison staff that he had definite cognitive impairment. He has been seeing a neurologist and at the last visit, the states that the patient was unable to draw a clock during the exam. Patient will be admitted to [place] [address], he will need placement in a senior living facility for short-term rehab services. He had been in the [facility] for several weeks this year. 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 ON LICENSE OF [facility] Medical History Closed fracture of right hip Fall Lives in prison Essential tremor Depression Anxiety Arthritis Indwelling urethral catheter present Fatty liver Back pain Restless legs Dietary restriction History of hiatal hernia History of IBS Gastric reflux Former smoker History of pain when walking History of stress test Unilateral primary osteoarthritis, left hip Tremors of nervous system Gait instability Other intervertebral disc degeneration, lumbar region Low back pain T12 compression fracture Myelopathy Osteoarthritis of left hip Frequent falls Complicated UTI (urinary tract infection) Intractable low back pain Godinez catheter present Weakness HTN (hypertension) Home Medications ?Medication ?Instructions ?Recorded ?Last Taken ?Type amlodipine 10 mg-valsartan 160 mg 1 tab PO DAILY HEART 07/01/14 11/18/25 History tablet (Exforge) multivitamin,[id number] 27 1 tab PO DAILYCM #30 TABLETS 07/03/14 11/18/25 Rx mg-0.4 mg tablet (Therems-M) finasteride 5 mg tablet 5 mg PO DAILY #30 tabs 04/12/24 11/18/25 Rx acetaminophen 500 mg capsule 1,000 mg PO Q8H PRN PRN pain 05/28/24 11/18/25 History pantoprazole 40 mg tablet,delayed 40 mg PO DAILY GERD 05/28/24 11/18/25 History release tamsulosin 0.4 mg capsule 0.4 mg PO QHS BPH 05/28/24 11/17/25 History meloxicam 7.5 mg tablet 7.5 mg PO BID 30 days #60 tabs 06/06/24 11/18/25 Rx hydroxyzine HCl 25 mg tablet 25 - 50 mg PO QHS PRN PRN anxiety 07/17/25 11/17/25 History OXYGEN - Supplemental ([facility] 07/20/25 Unknown History INFORMATIONAL USE ONLY) sertraline 100 mg tablet 100 mg PO DAILY 11/18/25 11/18/25 History Allergy/AdvReac Type Severity Reaction Status Date / Time No Known Allergies Allergy Verified 11/18/25 08:42 Surgical History S/P total left hip arthroplasty History of total left hip replacement History of kyphoplasty Social History Smoking Status: Unknown if ever smoked ROS Constitutional Constitutional: Reports weakness; Denies anorexia, change in weight, chills, fatigue, fever(s) or night sweats Eyes Eyes: Denies blurry vision, change in vision, discharge from eye(s) or eye pain Cardiovascular Cardiovascular: Denies chest pain, claudication, dyspnea on exertion, edema or palpitations Respiratory/Chest Respiratory/Chest: Denies cough, hemoptysis, shortness of breath at rest or shortness of breath with exertion Gastrointestinal Gastrointestinal: Denies abdominal pain, constipation, diarrhea, hematemesis, hematochezia, melena, nausea or vomiting Genitourinary Genitourinary: Denies difficulty urinating, dysuria, hematuria, urinary frequency, urinary hesitancy, urinary incontinence or urinary urgency Musculoskeletal Musculoskeletal: Denies back pain, joint pain, joint stiffness, joint swelling, myalgias or neck pain Neurologic Neurologic: Denies abnormal gait, abnormal speech, confusion, disequilibrium, dizziness, focal weakness, headache(s), loss of vision, numbness, other visual disturbances, paresthesias, syncope or tingling Psychiatric Psychiatric: Denies anxiety, cognitive impairment, depression, irritability, mood swings or suicidal ideation Endocrine Endocrinology: Denies change in body appearance, cold intolerance, excessive sweating, heat intolerance, polydipsia or polyuria Hematologic/Lymphatic Hematologic/Lymphatic: Denies none, anemia, easy bleeding, easy bruising or lymphadenopathy Allergic/Immunologic Allergic/Immunologic: Denies rhinitis, urticaria, eczemia or asthma Patient's Goals Of Care . What matters most to you about your health?: Walking better What would you like to achieve or improve as a result of your hospital stay?: Walking better so that I could go home Vital Signs Vital Signs Vital Signs: 11/18/25 08:39 11/18/25 08:43 11/18/25 10:39 Temperature 97.5 F L Temperature Source Oral Pulse Rate 67 70 Respiratory Rate 16 16 Respiratory Effort Normal Respiratory Depth Normal Respiratory Pattern Normal Blood Pressure 125/81 H 132/76 H Blood Pressure Mean 95 94 Pulse Ox 98 97 Oxygen Delivery Method Room Air Room Air 11/18/25 11:55 11/18/25 13:19 11/18/25 15:05 Temperature 0 F L 98.0 F Temperature Source Temporal Pulse Rate 67 67 Respiratory Rate 16 16 Respiratory Effort Respiratory Depth Respiratory Pattern Blood Pressure 125/79 H 125/79 H Blood Pressure Mean 94 94 Pulse Ox 97 97 Oxygen Delivery Method Weight Weight: 78.8 kg Body Mass Index (BMI) 24.9 Physical Exam Const alert, no apparent distress, average body habitus and healthy appearing General Appearance: cooperative, well kempt and well developed Orientation / Consciousness: awake, oriented to person and oriented to place HEENT normocephalic, head/scalp atraumatic, hearing grossly normal bilaterally and moist oral mucous membranes Eyes PERRL, EOMs intact bilaterally and conjunctivae normal Neck supple, no JVD, thyroid normal and no carotid bruits General: trachea midline Resp normal respiratory effort, no retractions, no use of accessory muscles and clear to auscultation bilaterally Auscultation: Negative for rales, rhonchi or wheezes Cardio regular rate, regular rhythm, S1 normal heart sound, S2 normal heart sound, no murmurs, no rub and no gallops GI normal to inspection, nondistended, normoactive bowel sounds, soft to palpation, non-tender and non-distended Extremity no clubbing, cyanosis or edema Skin no rashes or lesions noted General Skin Exam: no breakdown Neuro CN's II-XII intact bilaterally, moves all extremities, no focal motor deficits and no sensory deficits noted Sensorium / Orientation: awake, alert, oriented to person and oriented to place Speech: speech normal Psych Psych Narrative: Patient answers simple questions appropriately, he does not appear to be confused to this examiner Results Lab / Micro Data 11/18/25 09:15 11/18/25 09:15 Labs: Laboratory Results - last 24 hr 11/18/25 09:15: WBC 7.6, RBC 4.58 L, Hgb 12.9 L, Hct 38.7 L, MCV 84.5, MCH 28.2, MCHC 33.3, RDW Std Deviation 42.4, RDW Coeff of Jay 13.8, Plt Count 273, MPV 9.6, Immature Gran % (Auto) 0.500, Neut % (Auto) 80.7 H, Lymph % (Auto) 13.5 L, [place] % (Auto) 4.1, Eos % (Auto) 0.8, Baso % (Auto) 0.4, Absolute Neuts (auto) 6.1, Absolute Lymphs (auto) 1.02, Nucleated RBC % 0, Sodium 139, Potassium 3.4, Chloride 106, Carbon Dioxide 22.3, Anion Gap 12, BUN 15, Creatinine 0.71, Estim Creat Clear Calc 83.65, Est GFR (MDRD) Non-Af 96, BUN/Creatinine Ratio 21.4 H, Glucose 166 H, Calcium 9.0 11/18/25 11:50: Urine Color Yellow, Urine Clarity Sl. Cloudy, Urine pH 7.0, Ur Specific [place] 1.020, Urine Protein 15 H, Urine Glucose (UA) Normal, Urine Ketones Negative, Urine Occult Blood Negative, Urine Nitrite Negative, Urine Bilirubin Negative, Urine Urobilinogen 4 H, Ur Leukocyte Esterase Negative, Urine RBC 0 SEEN, Urine WBC 0 SEEN, Ur Squamous Epith Cells 0 SEEN, Urine Bacteria 0 SEEN, Urine Mucus 0 SEEN Imaging Radiology Impression Brain CT 11/18/25 08:57 IMPRESSION: No acute intracranial abnormality Reading Location: [id number] Cervical Spine CT 11/18/25 08:57 IMPRESSION: No acute fracture or dislocation in the cervical spine. Reading Location: [id number] Chest/Abdomen/Pelvis CT 11/18/25 08:57 IMPRESSION: 1. Acute right lateral 9th and 10th rib fractures. 2. No acute intra-thoracic, intra-abdominal, or intra-pelvic injury. 3. Nonobstructing left renal calculus. 4. Coronary artery calcification (CAC) is present. 5. Duodenal and colonic diverticulosis without signs of diverticulitis. Reading Location: [id number] Assessment & Plan Assessment/Plan (1) Generalized weakness: PLAN: Plan 1. Acute on chronic generalized weakness/debility-possibly related to underlying Alzheimer's dementia-patient will be admitted to [facility] [place] 3, he will be seen by PT and OT, I will attempt to talk with his neurologist-it appears that Dr. Mix is a movement neurologist, patient is supposed to be seen by another neurologist at the [facility] but the is not sure what specialty neurologist the patient is going to be seeing #2 acute right rib fractures lateral 9th and 10th ribs-Tylenol will be ordered for pain #3 chronic depression-patient will remain on Zoloft #4 essential hypertension-patient will remain on his home medications #5 BPH-patient is on Flomax #6 cognitive impairment-most likely secondary to Alzheimer's dementia, complicates care, management, recovery, and prognosis Total clinical time spent by myself addressing the patient's medical issues, reviewing all of his data, and collaborating with patient's care team: 55 minutes Charges/Coding Visit Charges Inpatient E&M: 59391 Init Hosp L2
--- NOTE | 2025-11-18 16:03 | CASEMGMT ---
SW Assessment: Face to Face with pt for initial transition planning/care coordination assessment. SW introduced self and role at [facility], pt voices understanding and consents to assessment. Pt is A&O x4 and answers all questions appropriately at this time. Care providers, pharmacy, and demographics verified/updated. Admitting Dx: Adult FTT PCP: She Hairston Specialists:Prano- urology, Sibilia- Pulmonology, Aurea- ortho Preferred Pharmacy: [facility] Insurance: [facility] Prescription Benefit: yes LNOK: Amina- Living Arrangements: Pt lives with in 2 story home with 3 stairs to enter. Bed and bath on 2nd floor. 1/2 bath and living area on main floor. Independent with ADL. cares for household tasks. Pt has had 3 falls in the past 5 days. Pt reports other falls prior to SNF placement in June. Transportation: Pt drives and denies concerns with transportation. DME: WW, grab bars, handrail, tub bench, O2- [facility] HHC[facility]: [facility] in June. [facility] Pt states no concerns with going home at time of dc. Pt states no further concerns/needs. CM to follow. Advised pt to ask CM if any further questions/concerns/needs arise, voices understanding. Pt Goal: Pt would like referral to [facility] if appropriate, otherwise pt would like d/c home SW to follow for additional discharge planning needs following therapy evaluations. BASIA Sanford
--- NOTE | 2025-11-18 19:40 | CM.ED ---
Social Work SW met with patient and who both stated they feel patient would benefit from SNF care at this time. Patients first choice is [facility]. did state they would need insurance to pay for SNF stay at this time and know they need a 3 day hospital stay for that to happen. is understanding that patients care needs will dictate the length of stay at [facility]. If patient is unable to admit to SNF, patient and state they may be interested in HHC. No further needs at this time. Trisha Wilder, HEAD TRACK COACH, SHUTTLE REPAIRER
[2025-11-18] MEDS: Heparin Injection (Vial) 5,000 UNIT/ML VIAL 5000 UNIT SC (20:45)
[2025-11-18] MEDS: hydrOXYzine PAM 25 MG Capsule PO (20:47)
[2025-11-19 01:59] VITALS: BP 124/72; PULSE 58; RESP 18; TEMP 36.3; O2SAT 97
[2025-11-19 08:30] VITALS: BP 127/93; PULSE 60; RESP 17; TEMP 36.7; O2SAT 99
[2025-11-19] MEDS: FLU VACCINE HIGH DOSE 25-26(65YR UP) 180 MCG/0.5 ML SYRINGE IM (08:39)
[2025-11-19] MEDS: Heparin Injection (Vial) 5,000 UNIT/ML VIAL 5000 UNIT SC ×2 (08:39→21:24)
--- NOTE | 2025-11-19 10:52 | CASEMGMT ---
Addendum entered by Anita Lao 11/19/25 15:13: SW met with pt to update that [facility] is uncertain on bed availability this week; a bed may be available discharge dependent. Pt reports that if he can't d/c direct to [facility], that he would like to remain on their wait list and will transfer from the d/c facility when a bed is available there. Pt alternate choices are [facility] (alternate) and [facility] (second alternate). Pt provided HCPOA paperwork. SW copied and placed in chart. SW remains available to follow. BASIA Sanford Original Note: Social Work- SW followed up with pt following therapy evals by PT and OT. SW discussed recommendations with pt. Pt reports that he would still like referral to [facility] for skilled therapy at d/c. Pt reports that even if he is able to stay a few days, pt feels that will be helpful prior to return home. SW notified DCA of referral request. SW remains available to follow. BASIA Sanford
--- NOTE | 2025-11-19 11:00 | CASEMGMT ---
[facility] Theresa Hernandez DC Planning Asst.
[2025-11-19 14:29] VITALS: BP 109/66; PULSE 63; RESP 16; TEMP 36.6; O2SAT 96
--- NOTE | 2025-11-19 17:00 | PN.HOSP_ITS ---
Reason for Visit Chief Complaint: Generalized weakness frequent falls Subjective Subjective Patient was seen and examined today, he is having some lower back spasms, initially Zanaflex was working but I had to change him to Flexeril today because his Zanaflex was not helping. I went over the care plan with the and the patient, I did talk with his neurologist yesterday, his neurologist has referred him to a brain neurologist for a workup regarding his cognitive impairment. Objective Data Objective Data Vital Signs: Vital Signs Temp Pulse Resp BP Pulse Ox O2 Del Method 97.8 F 63 16 109/66 96 Room Air 11/19/25 14:29 11/19/25 14:29 11/19/25 14:29 11/19/25 14:29 11/19/25 14:29 11/19/25 14:29 Oxygen Delivery Method Room Air Weight: 78.8 kg Body Mass Index (BMI) 24.9 Intake & Output: Intake and Output for Last 24 Hours 11/17/25 11/18/25 11/19/25 23:59 23:59 23:59 Intake Total 320 / 320 600 / 600 Balance 320 / 320 600 / 600 Lab / Micro Data 11/18/25 09:15 11/18/25 09:15 Physical Exam Const alert, no apparent distress, average body habitus and healthy appearing General Appearance: cooperative, well kempt and well developed Orientation / Consciousness: awake, oriented to person and oriented to place HEENT normocephalic, head/scalp atraumatic and moist oral mucous membranes Eyes PERRL, EOMs intact bilaterally and conjunctivae normal Neck supple, no JVD, thyroid normal and no carotid bruits General: trachea midline Resp normal respiratory effort, no retractions, no use of accessory muscles and clear to auscultation bilaterally Auscultation: Negative for rales, rhonchi or wheezes Cardio regular rate, regular rhythm, S1 normal heart sound, S2 normal heart sound, no murmurs, no rub and no gallops GI normal to inspection, nondistended, normoactive bowel sounds, soft to palpation, non-tender and non-distended Extremity no clubbing, cyanosis or edema Skin no rashes or lesions noted General Skin Exam: no breakdown Neuro CN's II-XII intact bilaterally, no focal motor deficits and no sensory deficits noted Sensorium / Orientation: awake, alert, oriented to person and oriented to place Speech: speech normal Psych Psych Narrative: Patient is a poor informant, he does not appear agitated or depressed Assessment & Plan Assessment/Plan (1) Generalized weakness: PLAN: Plan 1. Acute on chronic generalized weakness/debility-possibly related to underlying Alzheimer's dementia-PT and OT will continue to see patient, he will need at least temporary placement in a retirement facility for rehab services #2 acute right rib fractures lateral 9th and 10th ribs-I have elected to place the patient on oxycodone for his rib pain #3 chronic depression-patient will remain on Zoloft #4 essential hypertension-patient will remain on his home medications #5 BPH-patient is on Flomax #6 cognitive impairment-most likely secondary to Alzheimer's dementia, complicates care, management, recovery, and prognosis #7 lumbar back spasms-patient was placed on Flexeril, he is already on a nonsteroidal anti-inflammatory and oxycodone for pain Total clinical time spent by myself addressing the patient's medical issues, reviewing all of his data, and collaborating with patient's care team: 35 minutes Charges/Coding Visit Charges Inpatient E&M: 88038 Subs Hosp L2
[2025-11-19 21:16] VITALS: BP 134/78; PULSE 56; RESP 18; TEMP 36.4; O2SAT 95
[2025-11-19] MEDS: hydrOXYzine PAM 25 MG Capsule PO (21:24)
[2025-11-20 05:30] VITALS: BP 119/75; PULSE 65; RESP 18; TEMP 36.2; O2SAT 94
[2025-11-20 07:50] VITALS: BP 119/70; PULSE 64; RESP 16; TEMP 36.6; O2SAT 95
[2025-11-20] MEDS: Heparin Injection (Vial) 5,000 UNIT/ML VIAL 5000 UNIT SC ×2 (09:49→21:28)
--- NOTE | 2025-11-20 11:25 | CASEMGMT ---
Addendum entered by Theresa Hernandez 11/20/25 13:33: [facility] has accepted. SW updated. Original Note: Discharge Planning Referral sent via [facility] to [facility]. Theresa Hernandez DC Planning Asst.
[2025-11-20 13:45] VITALS: BP 125/67; PULSE 68; RESP 16; TEMP 36.4; O2SAT 94
--- NOTE | 2025-11-20 15:01 | CASEMGMT ---
Addendum entered by Anita Lao 11/20/25 15:38: SW updated pt with contact point for [facility] for follow-up on availability in a week. SW updated pt that room at [facility] is a private room. Pt appreciative of assistance. BASIA Sanford Original Note: Social Work- SW met with pt to update that [facility] was able to accept referral. Pt agreeable with understanding that pt will transfer to [facility] after a week/when [facility] has a bed open. Pt had questions regarding procedures for transfer. SW reached out for additional information and will update pt. Plan: [facility]; when medically ready BASIA Sanford
--- NOTE | 2025-11-20 15:38 | CASEMGMT ---
Social Work In the event that pt is ready for discharge, [facility] and transport with green sheet on chart. Discharge readiness checklist completed. Pt and pt agreeable to discharge plans to [facility]. Disposition:[facility]?, skilled level of care BASIA Sanford
--- NOTE | 2025-11-20 15:43 | PCM.PN.HOSP ---
Reason for Visit Chief Complaint: Generalized weakness frequent falls Subjective Subjective Patient was seen and examined today, his is in the room at the time of my examination. Patient states his back pain has been better. Patient was excepted at [facility], it is unknown whether they will be able to take him tomorrow-if not- it will be Tuesday. Objective Data Objective Data Vital Signs: Vital Signs Temp Pulse Resp BP Pulse Ox O2 Del Method 97.5 F L 68 16 125/67 H 94 Room Air 11/20/25 13:45 11/20/25 13:45 11/20/25 13:45 11/20/25 13:45 11/20/25 13:45 11/20/25 13:45 Oxygen Delivery Method Room Air Weight: 78.8 kg Body Mass Index (BMI) 24.9 Intake & Output: Intake and Output for Last 24 Hours 11/18/25 11/19/25 11/20/25 23:59 23:59 23:59 Intake Total 320 / 320 1700 / 1700 100 / 100 Balance 320 / 320 1700 / 1700 100 / 100 Lab / Micro Data 11/18/25 09:15 11/18/25 09:15 Physical Exam Narrative alert, no apparent distress, average body habitus and healthy appearing General Appearance: cooperative, well kempt and well developed Orientation / Consciousness: awake, oriented to person and oriented to place HEENT normocephalic, head/scalp atraumatic and moist oral mucous membranes Eyes PERRL, EOMs intact bilaterally and conjunctivae normal Neck supple, no JVD, thyroid normal and no carotid bruits General: trachea midline Resp normal respiratory effort, no retractions, no use of accessory muscles and clear to auscultation bilaterally Auscultation: Negative for rales, rhonchi or wheezes Cardio regular rate, regular rhythm, S1 normal heart sound, S2 normal heart sound, no murmurs, no rub and no gallops GI normal to inspection, nondistended, normoactive bowel sounds, soft to palpation, non-tender and non-distended Extremity no clubbing, cyanosis or edema Skin no rashes or lesions noted General Skin Exam: no breakdown Neuro CN's II-XII intact bilaterally, no focal motor deficits and no sensory deficits noted Sensorium / Orientation: awake, alert, oriented to person and oriented to place Speech: speech normal Psych Psych Narrative: Patient is a poor informant, he does not appear agitated or depressed Assessment & Plan Assessment/Plan (1) Generalized weakness: PLAN: Plan 1. Acute on chronic generalized weakness/debility-possibly related to underlying Alzheimer's dementia/Tauopathy-PT and OT will continue to see patient, he will need at least temporary placement in a longterm facility for rehab services #2 acute right rib fractures lateral 9th and 10th ribs- patient on oxycodone for his rib pain #3 chronic depression-patient will remain on Zoloft #4 essential hypertension-patient will remain on his home medications #5 BPH-patient is on Flomax #6 cognitive impairment-most likely secondary to Alzheimer's dementia or an unknown Tauopathy, complicates care, management, recovery, and prognosis, patient has an appointment with the brain neurologist in [place] in November, he will need to make that appointment for further workup. #7 lumbar back spasms-on Flexeril, he is already on a nonsteroidal anti-inflammatory and oxycodone for pain Total clinical time spent by myself addressing the patient's medical issues, reviewing all of his data, and collaborating with patient's care team: 35 minutes Charges/Coding Visit Charges Inpatient E&M: 61255 Subs Hosp L2
[2025-11-20 20:18] VITALS: BP 133/75; PULSE 73; RESP 16; TEMP 36.8; O2SAT 96
[2025-11-20] MEDS: 0.9% Saline Lock 10 ML Syringe IV (21:29)
[2025-11-21] MEDS: hydrOXYzine PAM 25 MG Capsule PO (00:15)
[2025-11-21] MEDS: MELATONIN 10 MG TABLET PO (00:47)
[2025-11-21 02:20] VITALS: BP 125/70; PULSE 68; RESP 18; TEMP 36.6; O2SAT 95
--- NOTE | 2025-11-21 07:38 | PN.HOSP_ITS ---
Reason for Visit Chief Complaint: Generalized weakness frequent falls Subjective Subjective Had some abdominal cramping, but ate all his breakfast today. Objective Data Objective Data Vital Signs: Vital Signs Temp Pulse Resp BP Pulse Ox O2 Del Method 36.6 C 68 18 125/70 H 95 Room Air 11/21/25 02:20 11/21/25 02:20 11/21/25 02:20 11/21/25 02:20 11/21/25 02:20 11/21/25 02:20 Oxygen Delivery Method Room Air Weight: 78.8 kg Body Mass Index (BMI) 24.9 Intake & Output: Intake and Output for Last 24 Hours 11/19/25 11/20/25 11/21/25 23:59 23:59 23:59 Intake Total 1700 / 1700 400 / 400 200 / 200 Balance 1700 / 1700 400 / 400 200 / 200 Lab / Micro Data 11/18/25 09:15 11/18/25 09:15 Physical Exam Const alert and no apparent distress HEENT head/scalp atraumatic and moist oral mucous membranes Resp normal respiratory effort, no retractions, no use of accessory muscles and clear to auscultation bilaterally Cardio regular rate, regular rhythm, S1 normal heart sound and S2 normal heart sound GI normal to inspection, nondistended, normoactive bowel sounds, soft to palpation, non-tender and non-distended Neuro Sensorium / Orientation: awake and alert Assessment & Plan Assessment/Plan (1) Generalized weakness: PLAN: Plan Acute on chronic generalized weakness/debility * 2/2 underlying Alzheimer's dementia/Tauopathy, advanced age, rib fractures * PT and OT will continue to see patient * plan if for [facility] acute right rib fractures lateral 9th and 10th ribs * 2/2 to falls. * supportive mgmt. * patient on oxycodone for his rib pain Chronic medical conditions * chronic depression-patient will remain on Zoloft * essential hypertension-patient will remain on his home medications * BPH-patient is on Flomax * cognitive impairment- unclear etiology. patient has an appointment with the brain neurologist in [place] in November, he will need to make that appointment for further workup. * lumbar back spasms-on Flexeril, he is already on a nonsteroidal anti- inflammatory and oxycodone for pain Medically stable to discharge to SNF. Charges/Coding Visit Charges Inpatient E&M: 11370 Subs Hosp L2 Date medically ready for discharge: 11/21/25
[2025-11-21 08:30] VITALS: BP 119/79; PULSE 73; RESP 18; TEMP 37.3; O2SAT 96
[2025-11-21 08:39] VITALS: RESP 17; O2SAT 96
[2025-11-21] MEDS: Heparin Injection (Vial) 5,000 UNIT/ML VIAL 5000 UNIT SC (09:19)
--- NOTE | 2025-11-21 09:30 | TREXTCAR_ITS ---
Diet Diet Order/Speech Therapy: INPATIENT Hospital Diet / Speech Therapy Order(s) 11/18/25 13:10 Diet: Regular - General Food consistency:: Regular Liquid Consistency:: Regular/Thin Routine Orders/Code Status Code Status: Full Code DC O2, CPAP, BIPAP needs Home O2 Discharge instructions: No Therapies Weight Bearing: Full weight bearing Physical Therapy: Eval and Treat Occupational Therapy: Eval and Treat Problem/Diagnosis (1) Generalized weakness: Status: Acute Code(s): R53.1 - Weakness Plan Acute on chronic generalized weakness/debility * 2/2 underlying Alzheimer's dementia/Tauopathy, advanced age, rib fractures * PT and OT will continue to see patient * plan if for [facility] acute right rib fractures lateral 9th and 10th ribs * 2/2 to falls. * supportive mgmt. * patient on oxycodone for his rib pain Chronic medical conditions * chronic depression-patient will remain on Zoloft * essential hypertension-patient will remain on his home medications * BPH-patient is on Flomax * cognitive impairment- unclear etiology. patient has an appointment with the brain neurologist in [place] in November, he will need to make that appointment for further workup. * lumbar back spasms-on Flexeril, he is already on a nonsteroidal anti- inflammatory and oxycodone for pain Medically stable to discharge to SNF. Allergies/Procedures Done in Hospital Allergies No Known Allergies Allergy (Verified 11/18/25 08:42) Procedures: None Type of Care/Length of Stay Estimated LOS: Convalescent Care Less Than 30 days Type of Care Needed: Skilled Rehab Potential: Good Prognosis: Good Additional Orders/Day of Discharge Day of Discharge: 11/21/25 Discharge Plan Admission Admit Date/Time: 11/18/25 15:10 Primary Reason for Your Visit: debility Attending Provider: Ruddy Carrasco Primary Care Provider: Rachele Pratt Consulting Providers: Po Worthington Discharge Orders/Prescriptions Prescriptions: New cyclobenzaprine 10 mg Tablet 10 mg PO TID PRN PRN (Reason: Muscle Spasm) Qty: 0 0RF loperamide 2 mg Capsule 4 mg PO Q6H PRN PRN (Reason: DIARRHEA) Qty: 0 0RF melatonin 10 mg Tablet,Disintegrating 10 mg PO QHS Qty: 0 0RF Continued amlodipine-valsartan [Exforge] 1 TAB tablet 1 tab PO DAILY Patient Comments: HEART/BLOOD PRESSURE pantoprazole 40 mg tablet,delayed release (DR/EC) 40 mg PO DAILY acetaminophen 500 mg capsule 1,000 mg PO Q8H PRN PRN (Reason: pain) tamsulosin 0.4 mg Capsule 0.4 mg PO QHS meloxicam 7.5 mg Tablet 7.5 mg PO BID 30 Days Qty: 60 0RF sertraline 100 mg tablet 100 mg PO DAILY finasteride 5 mg Tablet 5 mg PO DAILY Qty: 30 2RF hydroxyzine HCl 25 mg tablet 25 - 50 mg PO QHS PRN PRN (Reason: anxiety) (DME) OXYGEN - Supplemental ([facility] INFORMATIONAL USE ONLY) Gas See Rx Instructions .Route Patient Comments: at night Rx Instructions: As directed Discontinued Therems-M 1 TABLET tablet 1 tab PO DAILYCM Qty: 30 0RF Patient Comments: VITAMIN Referrals / Follow Up: Rachele Pratt DIRECTOR SPORTS-C [Primary Care Provider, Internal Medicine] - Within 2 Weeks Disposition Disposition (needs filled in before D/C Order can be placed): Senior Care Facility
--- NOTE | 2025-11-21 10:32 | NURSING ---
pt being discharged to [facility] today, tranportation arranged for [address].
--- NOTE | 2025-11-21 12:29 | DS.PCM_ITS ---
Providers Date of Admission: 11/18/25 Primary Care Physician: Rachele Pratt, CURATORIAL ASSISTANT-C Reason For Visit: DEBILITY Diagnosis Discharge Diagnosis (1) Generalized weakness: Status: Acute Code(s): R53.1 - Weakness Plan Acute on chronic generalized weakness/debility * 2/2 underlying Alzheimer's dementia/Tauopathy, advanced age, rib fractures * PT and OT will continue to see patient * plan if for [facility] acute right rib fractures lateral 9th and 10th ribs * 2/2 to falls. * supportive mgmt. * patient on oxycodone for his rib pain Chronic medical conditions * chronic depression-patient will remain on Zoloft * essential hypertension-patient will remain on his home medications * BPH-patient is on Flomax * cognitive impairment- unclear etiology. patient has an appointment with the brain neurologist in [place] in November, he will need to make that appointment for further workup. * lumbar back spasms-on Flexeril, he is already on a nonsteroidal anti- inflammatory and oxycodone for pain Medically stable to discharge to SNF. Medications at Discharge Home Medications amlodipine 10 mg-valsartan 160 mg tablet (Exforge) 1 tab PO DAILY HEART 07/01/14 finasteride 5 mg tablet 5 mg PO DAILY #30 tabs 04/12/24 acetaminophen 500 mg capsule 1,000 mg PO Q8H PRN PRN pain 05/28/24 pantoprazole 40 mg tablet,delayed release 40 mg PO DAILY GERD 05/28/24 tamsulosin 0.4 mg capsule 0.4 mg PO QHS BPH 05/28/24 meloxicam 7.5 mg tablet 7.5 mg PO BID 30 days #60 tabs 06/06/24 hydroxyzine HCl 25 mg tablet 25 - 50 mg PO QHS PRN PRN anxiety 07/17/25 OXYGEN - Supplemental ([facility] INFORMATIONAL USE ONLY) 07/20/25 sertraline 100 mg tablet 100 mg PO DAILY 11/18/25 cyclobenzaprine 10 mg tablet 10 mg PO TID PRN PRN Muscle Spasm #0 tabs 11/21/25 loperamide 2 mg capsule 4 mg (2 x 2 mg) PO Q6H PRN PRN DIARRHEA #0 caps 11/21/25 melatonin 10 mg disintegrating tablet 10 mg PO QHS #0 tabs 11/21/25 Hospital Course Operations None Procedures None Weight / BMI Weight Weight: 78.8 kg Body Mass Index (BMI) 24.9 ABG / Lab / Microbiology Data 11/18/25 09:15 11/18/25 09:15 D/C Instructions DC O2, CPAP, BIPAP Needs Home O2 Discharge instructions: No Meaningful Use Info Meaningful Use Meaningful Use Diagnoses (Choose all that apply): None applicable Discharge Plan Admission Admit Date/Time: 11/18/25 15:10 Primary Reason for Your Visit: debility Attending Provider: Ruddy Carrasco Primary Care Provider: Rachele Pratt Consulting Providers: Po Worthington Discharge Orders/Prescriptions Prescriptions: New cyclobenzaprine 10 mg Tablet 10 mg PO TID PRN PRN (Reason: Muscle Spasm) Qty: 0 0RF loperamide 2 mg Capsule 4 mg PO Q6H PRN PRN (Reason: DIARRHEA) Qty: 0 0RF melatonin 10 mg Tablet,Disintegrating 10 mg PO QHS Qty: 0 0RF Continued amlodipine-valsartan [Exforge] 1 TAB tablet 1 tab PO DAILY Patient Comments: HEART/BLOOD PRESSURE pantoprazole 40 mg tablet,delayed release (DR/EC) 40 mg PO DAILY acetaminophen 500 mg capsule 1,000 mg PO Q8H PRN PRN (Reason: pain) tamsulosin 0.4 mg Capsule 0.4 mg PO QHS meloxicam 7.5 mg Tablet 7.5 mg PO BID 30 Days Qty: 60 0RF sertraline 100 mg tablet 100 mg PO DAILY finasteride 5 mg Tablet 5 mg PO DAILY Qty: 30 2RF hydroxyzine HCl 25 mg tablet 25 - 50 mg PO QHS PRN PRN (Reason: anxiety) (DME) OXYGEN - Supplemental ([facility] INFORMATIONAL USE ONLY) Gas See Rx Instructions .Route Patient Comments: at night Rx Instructions: As directed Discontinued Therems-M 1 TABLET tablet 1 tab PO DAILYCM Qty: 30 0RF Patient Comments: VITAMIN Referrals / Follow Up: Rachele Pratt, RUMA-C [Primary Care Provider, Internal Medicine] - Within 2 Weeks Disposition Disposition (needs filled in before D/C Order can be placed): Nursing Home Facility Charges/Coding Visit Charges Inpatient E&M: 64872 Disch Hosp
== END 2025-11-21 10:50 | disposition skilled nursing facility (03) | DRG 948 ==
LOC: ED 12:15 → MS3 12:55
PROVIDERS: Admitting Provider Internal Medicine; Emergency Provider Student in an Organized Health Care Education/Training Program; PCP Nurse Practitioner Family
DX: R53.1 Weakness (principal); S22.41XA Multiple fractures of ribs, right side, initial encounter for closed fracture; F02.80 Dementia in other diseases classified elsewhere, unspecified severity, without behavioral disturbance, psychotic disturbance, mood disturbance, and anxiety; I10 Essential (primary) hypertension; F32.A Depression, unspecified; G30.9 Alzheimer's disease, unspecified; W19.XXXA Unspecified fall, initial encounter; M62.830 Muscle spasm of back; N40.0 Benign prostatic hyperplasia without lower urinary tract symptoms; Z79.899 Other long term (current) drug therapy
CPT/HCPCS: 70450; 71260; 72125; 74177; 80048; 81001; 85025; 93005; 97116; 97162; 97166; 97530; 97535; 99285; Q9967; A4216